=== PATIENT | male | born 1940 | race Caucasian/White ===

== ENCOUNTER → 2016-02-16 | Outpatient (CLI) | payer OTHER ==
[~2016-02-16] VITALS: Ht 162.6 cm; Wt 116.1 kg
[~2016-02-16] MED LIST: ADVIN25/60 INH; ASPI-461 PO; ASPI81TA28 PO; DILT180C96 PO; DILT240C48 PO; FLUT0.0529 NAE; FRS/40 PO; FURO-85 PO; GABA-113 PO; HYZ/10015 PO; IPRASOL4 INH; ISOS30TA3 PO; MAGN250T16 PO; METO-217 PO; NTRGSL/4 UT; OMEP20CA9 PO; POTA-331 PO; POTA10CA28 PO; POTA99TA PEG; PRLSR20 PO; RIVA1TAB4 PO; SIMV10TA2 PO; SPIR25TA PO; TERA5CAP PO
[2016-02-16 13:12] VITALS: BP 137/83; PULSE 65; Ht 162.6 cm; Wt 116.1 kg
== END | disposition home or self-care (01) ==
LOC: C.NEUR 12:14
PROVIDERS: ATTEND Internal Medicine Pulmonary Disease
DX: G47.31 Primary central sleep apnea (principal); G47.33 Obstructive sleep apnea (adult) (pediatric); J44.9 Chronic obstructive pulmonary disease, unspecified; G47.34 Idiopathic sleep related nonobstructive alveolar hypoventilation; I50.9 Heart failure, unspecified

== ENCOUNTER → 2016-03-22 | Outpatient (CLI) | payer OTHER ==
[2016-03-22 12:10] LABS: BASO % 0.3 %; BASO ABS # 0.02 K/uL (0-0.2); COMPLETE YES; EOS % 1.6 %; HEMATOCRIT 37.5 % (42-52); IG% 0.1 %; LYMPH % 16.9 %; LYMPH ABS # 1.19 K/uL (1.2-3.4); MEAN CELL VOLUME 85.4 fL (80-100); MEAN CORPUSCULAR HEMOGLOBIN 29.4 pg (25-34); MEAN CORPUSCULAR HGB CONC 34.4 g/dl (32-36); MEAN PLATELET VOLUME 11.2 fL (7.4-10.4); MONO % 11.5 %; NEUT % 69.6 %; PLATELET COUNT 191 K/uL (130-400); RED BLOOD COUNT 4.39 M/uL (4.7-6.1); WHITE BLOOD COUNT 7.05 K/uL (4.8-10.8)
[2016-03-22 12:45] LABS: BLOOD UREA NITROGEN 27 mg/dl (7-18); CARBON DIOXIDE 29 mmol/L (21-32); CHLORIDE 101 mmol/L (98-107); GLUCOSE 85 mg/dl (70-99); POTASSIUM 4.3 mmol/L (3.5-5.1); SODIUM 139 mmol/L (136-145)
== END | disposition home or self-care (01) ==
LOC: C.LAB1850 11:19
PROVIDERS: ATTEND Internal Medicine
DX: E11.9 Type 2 diabetes mellitus without complications (principal)

== ENCOUNTER → 2016-06-14 | Outpatient (CLI) | payer OTHER ==
[~2016-06-14] MED LIST changes: +AMIO200T4 PO; +CYAN100T6 PO; +DILT180C58 PO; -DILT180C96 PO; +DILT1CAP15 PO; +DOCU100C31 PO; +FLUT50SP45; +GFNSR600 PO; +LATA0.5S OPL; +METO-596 PO; +METO100T44 PO; +OXYC-57 PO; +OXYC1CAP5 PO; +PRD20 PO; +SENN8.6T7 PO; +SLWMEC PO
[2016-06-14 10:31] LABS: ALLEN TEST POS (POS); ARTERIAL BLD GAS O2 SATURATION 94.8 % (90-95); ARTERIAL BLOOD GAS BASE EXCESS 7.5 mEq/L (-9-1.8); ARTERIAL BLOOD GAS HCO3 32 mmol/L (19-24); ARTERIAL BLOOD GAS PO2 73 mm/Hg (80-95); ARTERIAL BLOOD GAS pH 7.48 (7.35-7.45); O2 ADMINISTRATION ROOM AIR
[2016-06-14 12:09] LABS: BASO % 0.2 %; BASO ABS # 0.01 K/uL (0-0.2); COMPLETE YES; EOS % 1.8 %; HEMATOCRIT 38.5 % (42-52); IG% 0.2 %; LYMPH % 14.1 %; LYMPH ABS # 0.78 K/uL (1.2-3.4); MEAN CELL VOLUME 88.5 fL (80-100); MEAN CORPUSCULAR HEMOGLOBIN 28.3 pg (25-34); MEAN CORPUSCULAR HGB CONC 31.9 g/dl (32-36); MONO % 12.6 %; NEUT % 71.1 %; PLATELET COUNT 191 K/uL (130-400); RED BLOOD COUNT 4.35 M/uL (4.7-6.1); WHITE BLOOD COUNT 5.54 K/uL (4.8-10.8)
[2016-06-14 12:55] LABS: ESTIMATED AVERAGE GLUCOSE 131 mg/dl; HA1C FLAG Normal (Normal)
[2016-06-14 13:08] LABS: URINE APPEARANCE CLEAR (CLEAR); URINE BILIRUBIN NEG (NEG); URINE COLOR YELLOW; URINE NITRITE NEG (NEG); URINE PH 8.5 (4.5-7.5); UROBILINOGEN NEG (NEG)
[2016-06-14 13:18] LABS: MANUAL MICROSCOPIC REQUIRED? NO; REVIEW REQ? NO; SULFASALICYLIC ACID NEG (NEG)
[2016-06-14 13:53] LABS: AST/SGOT 16 U/L (15-37); BLOOD UREA NITROGEN 27 mg/dl (7-18); BUN/CREATININE RATIO 22.6 (10-20); CALCIUM 9.2 mg/dl (8.5-10.1); CARBON DIOXIDE 32 mmol/L (21-32); CHLORIDE 100 mmol/L (98-107); GLUCOSE 84 mg/dl (70-99); SODIUM 139 mmol/L (136-145)
[2016-06-14 13:57] LABS: ALT/SGPT 31 U/L (12-78); CHOLESTEROL 106 mg/dl (0-200); CHOLESTEROL/HDL RATIO 2.5; HDL CHOLESTEROL 42 mg/dl; LDL CHOLESTEROL CALCULATED 36 mg/dl; TRIGLYCERIDES 142 mg/dl (0-150); VERY LOW DENSITY LIPOPROT CALC 28 mg/dl
--- NOTE | 2016-06-21 09:41 | CODING QUERY MEDICAL NECESSITY ---
CQSUPPORTING DIAGNOSIS NEEDED A supporting diagnosis is required for the test/procedure performed on this patient in order for us to be reimbursed by the patient's insurance. Please provide a supporting diagnosis for the following test/procedure listed below next to the test name along with your signature. *If there is no additional diagnosis for this patient that would support the following test/procedure please document that below next to the test/procedure. Test(s)/Procedure(s) that require a supporting diagnosis: LUKASZ 06/14/16 GLYCATED HEMOGLOBIN TEST Provider Signature: Date: Thank you Ariana Blanco Health Information Management Once completed, please kindly fax back to [phone] For questions please call [phone]
== END | disposition home or self-care (01) ==
LOC: C.LAB 09:23
PROVIDERS: ATTEND Internal Medicine
DX: E78.5 Hyperlipidemia, unspecified (principal); E11.9 Type 2 diabetes mellitus without complications

== ENCOUNTER → 2016-08-19 | Outpatient (CLI) | payer OTHER ==
[~2016-08-19] VITALS: Ht 167.6 cm; Wt 116.6 kg
[~2016-08-19] MED LIST changes: -AMIO200T4 PO; -ASPI81TA28 PO; -CYAN100T6 PO; -DILT180C58 PO; +DILT180C96 PO; -DILT1CAP15 PO; -DILT240C48 PO; -DOCU100C31 PO; -FLUT50SP45; -FRS/40 PO; -GFNSR600 PO; -IPRASOL4 INH; -ISOS30TA3 PO; -LATA0.5S OPL; -METO-217 PO; -METO-596 PO; -METO100T44 PO; -OXYC-57 PO; -OXYC1CAP5 PO; -POTA10CA28 PO; -POTA99TA PEG; -PRD20 PO; -PRLSR20 PO; -SENN8.6T7 PO; -SLWMEC PO
[2016-08-19 13:11] VITALS: BP 109/61; PULSE 58; Ht 167.6 cm; Wt 116.6 kg
== END | disposition home or self-care (01) ==
LOC: C.NEUR 12:24
PROVIDERS: ATTEND Internal Medicine Pulmonary Disease
DX: G47.31 Primary central sleep apnea (principal); G47.33 Obstructive sleep apnea (adult) (pediatric); J44.9 Chronic obstructive pulmonary disease, unspecified

== ENCOUNTER → 2016-10-07 | Outpatient (CLI) | payer OTHER ==
[~2016-10-07] MED LIST changes: +ASPI81TA28 PO; +DILT240C48 PO; +FRS/40 PO; +IPRASOL4 INH; +ISOS30TA3 PO; +METO-217 PO; +POTA10CA28 PO; +POTA99TA PEG; +PRLSR20 PO
[2016-10-07 09:41] LABS: BASO % 0.2 %; BASO ABS # 0.01 K/uL (0-0.2); COMPLETE YES; EOS % 1.8 %; HEMATOCRIT 39.7 % (42-52); IG% 0.2 %; LYMPH % 17.2 %; LYMPH ABS # 0.88 K/uL (1.2-3.4); MEAN CELL VOLUME 88.2 fL (80-100); MEAN CORPUSCULAR HEMOGLOBIN 28.9 pg (25-34); MEAN CORPUSCULAR HGB CONC 32.7 g/dl (32-36); MEAN PLATELET VOLUME 11.3 fL (7.4-10.4); MONO % 10.5 %; NEUT % 70.1 %; PLATELET COUNT 171 K/uL (130-400); WHITE BLOOD COUNT 5.12 K/uL (4.8-10.8)
[2016-10-07 10:10] LABS: CHOLESTEROL/HDL RATIO 2.5
[2016-10-07 10:14] LABS: ALT/SGPT 28 U/L (12-78); AST/SGOT 13 U/L (15-37); BLOOD UREA NITROGEN 30 mg/dl (7-18); BUN/CREATININE RATIO 21.6 (10-20); CALCIUM 9.4 mg/dl (8.5-10.1); CARBON DIOXIDE 33 mmol/L (21-32); CHLORIDE 101 mmol/L (98-107); GLUCOSE 101 mg/dl (70-99); SODIUM 138 mmol/L (136-145)
[2016-10-07 10:16] LABS: ESTIMATED AVERAGE GLUCOSE 131 mg/dl; HA1C FLAG Normal (Normal)
== END | disposition home or self-care (01) ==
LOC: C.LAB1850 08:15
PROVIDERS: ATTEND Internal Medicine
DX: E11.9 Type 2 diabetes mellitus without complications (principal)

== ENCOUNTER 2016-11-04 15:09 | Emergency (ER) | payer OTHER ==
[~2016-11-04] VITALS: Ht 167.6 cm; Wt 120.8 kg
[~2016-11-04 15:09] MED LIST changes: -ASPI81TA28 PO; -DILT240C48 PO; -FRS/40 PO; -IPRASOL4 INH; -ISOS30TA3 PO; -METO-217 PO; -POTA10CA28 PO; -POTA99TA PEG; -PRLSR20 PO
[2016-11-04 15:22] VITALS: TEMP 36.9; Ht 167.6 cm; Wt 120.8 kg
--- NOTE | 2016-11-04 15:51 | DIAGNOSTIC IMAGING REPORT ---
PELVIS 1 OR 2 VIEW ROUTINE CLINICAL HISTORY: 76 years-old Male presenting with right hip pain, fall. TECHNIQUE: Single frontal view of the pelvis was obtained. COMPARISON: None. FINDINGS: Pubic symphysis and sacroiliac joints congruent. Left hip joint congruent. Traumatic right protrusio acetabuli deformity with disruption of the right ilioischial line. Osseous abnormality along the superior acetabulum, possibly also posttraumatic. No gross evidence of a right femoral neck fracture. IMPRESSION: Right acetabular fracture with traumatic right protrusio acetabuli deformity. Further evaluation with CT is recommended to fully assess the injury pattern. The report will be called/faxed according to standard departmental protocol. Electronically signed by: Jesse Wagner M.D. 11/04/2016 3:50 PM Dictated Date/Time: 11/04/2016 3:45 PM
--- NOTE | 2016-11-04 15:53 | EMERGENCY ROOM VISIT NOTE ---
History First contact with patient: 15:24 Chief Complaint: HIP PAIN Stated Complaint: FALL, HIP PAIN History of Present Illness The patient is a 76 year old male who presents to the Emergency Room via BLS for violation of right hip pain. The patient was at work and stepped over a curb when he tripped and fell onto the right hip. He denies hitting his head. He denies any other injuries. The patient reports that his pain as a 10/10 with movement. He denies any significant pain at rest. He denies any previous injuries to this hip. The patient reports the falls mechanical in nature and was not associated with any chest pain, shortness of breath, lightheadedness or dizziness. Review of Systems A complete 10 point review of systems was reviewed with the patient with pertinent positives and negatives as per history of present illness. All else were negative. Past Medical/Surgical History Medical Problems: (1) Afib (2) Coronary artery disease (3) Hyperlipidemia (4) Hypertension (5) TX (myocardial infarction) (6) Neuropathy (7) SANDOR (obstructive sleep apnea) Surgical Problems: (1) History of cataract surgery (2) History of coronary artery stent placement (3) History of dental implant Family History Cancer FHx: CAD (brothers) Hypertension Kidney disease Social History Smoking Status: Former Smoker Alcohol Use: occasionally Marital Status: Occupation Status: employed Current/Historical Medications Scheduled Aspirin (Aspirin Ec), 81 MG PO DAILY Diltiazem Hcl Coated Beads (Cartia Xt), 1 CAP PO DAILY Fluticasone Prop/Salmeterol (Advair Diskus 250/50 60 Dose), 1 PUFF INH BID Furosemide (Lasix), 2 TAB PO QAM Furosemide (Lasix), 1 TAB PO LUNCH Hctz/Losartan (Hyzaar 25MG/100MG), 1 TAB PO DAILY Ipratropium-Albuterol (Duoneb), 1 TREATMENT INH Q6H Isosorbide Mononitrate Ext Rel (Imdur Ext Rel), 30 MG PO QAM Metoprolol Succinate (Toprol Xl), 0.5 TAB PO BID Omeprazole (Prilosec), 20 MG PO BID Potassium (Potassium), 1 TAB PEG DAILY Potassium Chloride (Micro-K Ext Rel), 2 TAB PO TID Rivaroxaban (Xarelto), 1 TAB PO HS Simvastatin (Zocor), 10 MG PO QPM Spironolactone (Aldactone), 25 MG PO DAILY Terazosin (Hytrin), 5 MG PO HS Physical Exam Vital Signs Date Time Temp Pulse Resp B/P (MAP) Pulse Ox O2 Delivery O2 Flow Rate FiO2 11/04/16 21:51 100 14 118/72 98 11/04/16 21:32 100 14 118/72 98 Nasal Cannula 2.0 11/04/16 21:01 117 19 124/78 98 Nasal Cannula 2.0 11/04/16 20:32 118 21 121/80 96 Nasal Cannula 2.0 11/04/16 20:01 120 17 114/80 98 Nasal Cannula 2.0 11/04/16 19:32 110 18 122/68 97 Nasal Cannula 2.0 11/04/16 18:51 116 20 118/72 98 Room Air 11/04/16 16:46 104 25 135/85 Nasal Cannula 2.0 11/04/16 16:40 111 11/04/16 15:22 36.9 95 22 138/75 95 Room Air Physical Exam VITALS: Vitals are noted on the nurse's note and reviewed by myself. Vital signs stable. GENERAL: This is a 68-year-old male, in no acute distress, nondiaphoretic, well- developed well-nourished. SKIN: There is a small superficial abrasion to the right knee. HEENT: Normocephalic. PERRLA. EOMI. Mucous membranes moist. Neck is supple without nuchal rigidity. HEART: Regular rate and rhythm without murmurs gallops or rubs. LUNGS: Clear to auscultation bilaterally without wheezes, rales or rhonchi. MUSCULOSKELETAL: The right leg is shortened and externally rotated. There is tenderness to palpation of the right hip. Decreased range of motion. EXTREMITIES: 1+ pitting edema to bilateral lower extremities. NEURO: Patient was alert and oriented to person place and time. Normal sensation to light and sharp touch. Medical Decision & Procedures ER Provider Diagnostic Interpretation: PELVIS 1 OR 2 VIEW ROUTINE FINDINGS: Pubic symphysis and sacroiliac joints congruent. Left hip joint congruent. Traumatic right protrusio acetabuli deformity with disruption of the right ilioischial line. Osseous abnormality along the superior acetabulum, possibly also posttraumatic. No gross evidence of a right femoral neck fracture. IMPRESSION: Right acetabular fracture with traumatic right protrusio acetabuli deformity. Further evaluation with CT is recommended to fully assess the injury pattern. RIGHT FEMUR 4 VIEWS FINDINGS: There is a displaced fracture within the medial wall of the right acetabulum which demonstrates up to 1.4 cm of medial displacement. This results in a right-sided protrusion acetabula deformity. The right femur appears intact. Vascular calcifications are noted. No knee effusion. No radiopaque foreign bodies. IMPRESSION: Displaced fracture within the medial wall of the right acetabulum with an associated traumatic right protrusio acetabuli deformity. CHEST 1 VW FRONT-NOT PORTABLE IMPRESSION: No acute cardiopulmonary process. ANGIO PELVIS WITH CONTRAST FINDINGS: CTA: There is moderate atherosclerosis and mild tortuosity of the distal abdominal aorta. Moderate mixed plaquing is also seen within the bilateral iliac and renal vasculature. No aneurysm, high-grade stenosis, dissection or proximal branch occlusion identified. Specifically, the branches of the right internal iliac artery appear patent proximally without a large pseudoaneurysm or active extravasation about the right hip identified. CT PELVIS: Colonic diverticulosis without diverticulitis. Curtis catheter is noted with a partially collapsed urinary bladder lumen. Prostatomegaly. There is moderate soft tissue swelling about the right hip with small to moderate joint effusion. The bones are moderately demineralized. Degenerative changes are seen within the lower lumbar spine. Comminuted acetabular fracture is noted with fracture lines extending into the anterior wall, posterior wall and posterior column. These findings are nicely seen on the sagittal images. There is medial displacement of fracture fragments by approximately 8 mm with posttraumatic acetabular protrusio. Fracture fragments extend laterally 10 mm. Acute nondisplaced fracture from the posterior column fracture extends into the right ischium and junction of the inferior right pubic ramus. The right femur appears intact. Sacrum and left hemipelvis appears intact. IMPRESSION: 1. Comminuted acetabular fracture on the right as above involve the anterior wall, posterior wall and posterior column. Mildly displaced fracture fragments with posttraumatic acetabular protrusio noted as above. Fracture lines extend into the right ischium and also into the junction of the ischium and inferior right pubic ramus. 2. No evidence of associated vascular injury, specifically branches of the right internal iliac artery appear patent. No active extravasation or posttraumatic pseudoaneurysm. 3. Incidental findings as above include colonic diverticulosis without diverticulitis. Laboratory Results 11/04/16 16:04 Red Blood Count 4.39, Mean Corpuscular Volume 85.6, Mean Corpuscular Hemoglobin 27.8, Mean Corpuscular Hemoglobin Concent 32.4, Mean Platelet Volume 10.9, Neutrophils (%) (Auto) 76.3, Lymphocytes (%) (Auto) 16.8, Monocytes (%) (Auto) 4.5, Eosinophils (%) (Auto) 1.9, Basophils (%) (Auto) 0.2, Neutrophils # (Auto) 4.89, Lymphocytes # (Auto) 1.08, Monocytes # (Auto) 0.29, Eosinophils # (Auto) 0.12, Basophils # (Auto) 0.01 11/04/16 16:04 Test 11/04/16 16:04 11/04/16 16:35 White Blood Count 6.41 K/uL (4.8-10.8) Red Blood Count 4.39 M/uL (4.7-6.1) Hemoglobin 12.2 g/dL (14.0-18.0) Hematocrit 37.6 % (42-52) Mean Corpuscular Volume 85.6 fL (80-100) Mean Corpuscular Hemoglobin 27.8 pg (25-34) Mean Corpuscular Hemoglobin Concent 32.4 g/dl (32-36) Platelet Count 168 K/uL (130-400) Mean Platelet Volume 10.9 fL (7.4-10.4) Neutrophils (%) (Auto) 76.3 % Lymphocytes (%) (Auto) 16.8 % Monocytes (%) (Auto) 4.5 % Eosinophils (%) (Auto) 1.9 % Basophils (%) (Auto) 0.2 % Neutrophils # (Auto) 4.89 K/uL (1.4-6.5) Lymphocytes # (Auto) 1.08 K/uL (1.2-3.4) Monocytes # (Auto) 0.29 K/uL (0.11-0.59) Eosinophils # (Auto) 0.12 K/uL (0-0.5) Basophils # (Auto) 0.01 K/uL (0-0.2) RDW Standard Deviation 41.3 fL (36.4-46.3) RDW Coefficient of Variation 13.1 % (11.5-14.5) Immature Granulocyte % (Auto) 0.3 % Immature Granulocyte # (Auto) 0.02 K/uL (0.00-0.02) Prothrombin Time 12.3 SECONDS (9.0-12.0) Prothromb Time International Ratio 1.1 (0.9-1.1) Activated Partial Thromboplast Time 30.6 SECONDS (21.0-31.0) Partial Thromboplastin Ratio 1.2 Anion Gap 8.0 mmol/L (3-11) Est Creatinine Clear Calc Drug Dose 46.6 ml/min Estimated GFR () 47.1 Estimated GFR (Non- 40.7 BUN/Creatinine Ratio 19.3 (10-20) Calcium Level 9.0 mg/dl (8.5-10.1) Urine Color YELLOW Urine Appearance CLEAR (CLEAR) Urine pH 7.0 (4.5-7.5) Urine Specific [place] 1.014 (1.000-1.030) Urine Protein NEG (NEG) Urine Glucose (UA) NEG (NEG) Urine Ketones NEG (NEG) Urine Occult Blood NEG (NEG) Urine Nitrite NEG (NEG) Urine Bilirubin NEG (NEG) Urine Urobilinogen NEG (NEG) Urine Leukocyte Esterase NEG (NEG) Medications Administered Medications (Trade) Dose Ordered Sig/Janee Route Start Time Stop Time Status Last Admin Dose Admin Fentanyl Citrate (Fentanyl Inj) 50 mcg NOW STAT IV 11/04/16 16:24 11/04/16 16:25 DC 11/04/16 16:45 50 MCG Sodium Chloride 500 ml @ 999 mls/hr Q31M STAT IV 11/04/16 16:31 11/04/16 17:01 DC 11/04/16 16:45 999 MLS/HR Morphine Sulfate (MoRPHine SULFATE INJ) 4 mg NOW STAT IV 11/04/16 18:32 11/04/16 18:34 DC 11/04/16 18:46 4 MG Diphtheria/ Pertussis/Tetanus Vacc (Adacel Inj) 0.5 ml ONCE ONCE IM. 11/04/16 18:45 11/04/16 18:46 DC 11/04/16 18:48 0.5 ML Metoprolol Tartrate (Lopressor Tab) 25 mg NOW STAT PO 11/04/16 19:54 11/04/16 19:55 DC 11/04/16 21:17 25 MG Metoprolol Tartrate (Lopressor Tab) 50 mg NOW STAT PO 11/04/16 20:37 11/04/16 20:38 DC 11/04/16 21:17 50 MG ECG Rate (beats per minute): 112 Rhythm: atrial fibrillation Findings: no acute ischemic change Comparison ECG Date: normal sinus rhythm replaced with atrial fibrillation ED Course The patient was evaluated as above. Labs were drawn and IV access was obtained. Patient was medicated with a 500 mL normal saline bolus and 50 g fentanyl. X-rays of the right femur and pelvis were performed and read by radiology as above. I discussed the findings with the radiologist, who recommended a CT angiogram of the pelvis. CTA of the pelvis was performed and showed a right acetabular fracture as noted above with no vascular compromise. Findings were discussed with Dr. Soto, the orthopedist telephone operators supervisor. He recommended transfer to a tertiary facility. Case was discussed with Dr. Mas, ED physician at [facility]. He accepted the patient in transfer. Patient was given 4 mg morphine for pain with good relief. Findings were discussed and he is agreeable to this. Patient was given his nighttime dose of 75 mg metoprolol. Patient was transferred via ALS to [facility]. Medical Decision Differential diagnosis includes femur fracture, acetabular fracture, hip dislocation, vascular injury, among others. The patient is a 76-year-old male who presents today complaining of right hip pain after a fall. X-rays showed evidence of an acetabular fracture. CTA was performed for further evaluation of this injury and showed a comminuted acetabular fracture without evidence of vascular injury. Neuro status is intact. Patient was stable throughout his stay. He was found to be in atrial fibrillation, however he has a history of this. Labs are unremarkable. Pain was controlled with fentanyl and morphine IV in the emergency department. Case was discussed with orthopedics, who felt that the patient would benefit from transfer to a tertiary facility for acetabular reconstruction. Case was discussed with the [facility] ER, who excepted the patient in transfer. Patient was transferred via ALS for further evaluation and treatment of his right acetabular fracture. The patient was independently evaluated by Dr. Briseno, ED attending physician, who agreed with my assessment and treatment plan. Medication Reconcilliation Current Medication List: was personally reviewed by me Blood Pressure Screening Patient's blood pressure: Elevated blood pressure Blood pressure disposition: Elevated BP felt to be situational Impression Primary Impression: Right acetabular fracture Departure Information Referrals Ken Worthington M.D. (PCP) Patient Instructions My [facility]
--- NOTE | 2016-11-04 16:17 | DIAGNOSTIC IMAGING REPORT ---
RIGHT FEMUR 4 VIEWS HISTORY: right hip pain, fall COMPARISON: Pelvis 11/04/2016. FINDINGS: There is a displaced fracture within the medial wall of the right acetabulum which demonstrates up to 1.4 cm of medial displacement. This results in a right-sided protrusion acetabula deformity. The right femur appears intact. Vascular calcifications are noted. No knee effusion. No radiopaque foreign bodies. IMPRESSION: Displaced fracture within the medial wall of the right acetabulum with an associated traumatic right protrusio acetabuli deformity. Electronically signed by: Chepe Vaughn M.D. 11/04/2016 4:15 PM Dictated Date/Time: 11/04/2016 4:13 PM
--- NOTE | 2016-11-04 16:19 | DIAGNOSTIC IMAGING REPORT ---
CHEST 1 VW FRONT-NOT PORTABLE HISTORY: 76 years-old Male HIP FX preoperative study in a patient with right hip pain status post fall. COMPARISON: Chest radiograph 05/26/2015 TECHNIQUE: Portable AP view of the chest FINDINGS: Cardiac silhouette is mildly enlarged. Prior median sternotomy. There is no pneumothorax, pleural effusion or focal airspace consolidation. Opacity silhouetting the inferior left heart border is noted suggesting prominent epicardial fat pad. There is chronic blunting of the costophrenic angles compatible some pleural parenchymal scarring. Bones are grossly intact. IMPRESSION: No acute cardiopulmonary process. The above report was generated using voice recognition software. It may contain grammatical, syntax or spelling errors. Electronically signed by: Gio Allen M.D. 11/04/2016 4:18 PM Dictated Date/Time: 11/04/2016 4:16 PM
[2016-11-04] MEDS ORDERED: FENTANYL CITRATE INJ 50 MCG/1 ML 2 ML VIAL IV STA (16:24)
[2016-11-04] MEDS ORDERED: SODIUM CHLORIDE 0.9% 500ML 500 ML IV STA (16:31)
[2016-11-04 16:36] LABS: BASO % 0.2 %; BASO ABS # 0.01 K/uL (0-0.2); COMPLETE YES; EOS % 1.9 %; HEMATOCRIT 37.6 % (42-52); IG% 0.3 %; LYMPH % 16.8 %; LYMPH ABS # 1.08 K/uL (1.2-3.4); MEAN CELL VOLUME 85.6 fL (80-100); MEAN CORPUSCULAR HEMOGLOBIN 27.8 pg (25-34); MEAN CORPUSCULAR HGB CONC 32.4 g/dl (32-36); MEAN PLATELET VOLUME 10.9 fL (7.4-10.4); MONO % 4.5 %; NEUT % 76.3 %; PLATELET COUNT 168 K/uL (130-400); RED BLOOD COUNT 4.39 M/uL (4.7-6.1); WHITE BLOOD COUNT 6.41 K/uL (4.8-10.8)
[2016-11-04] MEDS ORDERED: OPTIRAY 320 IV PRN (16:45)
[2016-11-04] MEDS ORDERED: DILT240C48 PO (16:47)
[2016-11-04] MEDS ORDERED: PRLSR20 PO (16:47)
[2016-11-04] MEDS ORDERED: HYZ/10015 PO (16:47)
[2016-11-04] MEDS ORDERED: ISOS30TA3 PO (16:47)
[2016-11-04] MEDS ORDERED: POTA99TA PEG (16:47)
[2016-11-04] MEDS ORDERED: IPRASOL4 INH (16:47)
[2016-11-04] MEDS ORDERED: SIMV10TA2 PO (16:47)
[2016-11-04] MEDS ORDERED: FRS/40 PO ×2 (16:47)
[2016-11-04] MEDS ORDERED: POTA10CA28 PO (16:47)
[2016-11-04] MEDS ORDERED: ADVIN25/60 INH (16:47)
[2016-11-04] MEDS ORDERED: RIVA1TAB4 PO (16:47)
[2016-11-04] MEDS ORDERED: SPIR25TA PO (16:47)
[2016-11-04] MEDS ORDERED: ASPI81TA28 PO (16:47)
[2016-11-04] MEDS ORDERED: TERA5CAP PO (16:47)
[2016-11-04] MEDS ORDERED: METO-217 PO (16:47)
[2016-11-04 16:50] LABS: INR 1.1 (0.9-1.1); PARTIAL THROMBOPLASTIN RATIO 1.2; PROTHROMBIN TIME (PATIENT) 12.3 SECONDS (9.0-12.0)
[2016-11-04 16:59] LABS: URINE APPEARANCE CLEAR (CLEAR); URINE BILIRUBIN NEG (NEG); URINE COLOR YELLOW; URINE NITRITE NEG (NEG); URINE SPECIFIC GRAVITY 1.014 (1.000-1.030); UROBILINOGEN NEG (NEG); ZZURINE CULT IF INDIC CATH NO
[2016-11-04 17:00] LABS: MANUAL MICROSCOPIC REQUIRED? NO; REVIEW REQ? NO
[2016-11-04 17:04] LABS: BUN/CREATININE RATIO 19.3 (10-20); CREATININE 1.6 mg/dl (0.60-1.40); POTASSIUM 4.6 mmol/L (3.5-5.1)
--- NOTE | 2016-11-04 18:16 | DIAGNOSTIC IMAGING REPORT ---
ANGIO PELVIS WITH CONTRAST HISTORY: 76 years-old Male acute right acetabular hip fracture with concern for associated possible vascular injury. COMPARISON: Right femur and pelvis radiographs of same day TECHNIQUE: CT angiography of the pelvis was obtained following the intravenous administration of 120 mL Optiray 320. Coronal and sagittal MIPS were obtained from the axial data set and submitted for review. A dose lowering technique was used consistent with the principals of SONY. FINDINGS: CTA: There is moderate atherosclerosis and mild tortuosity of the distal abdominal aorta. Moderate mixed plaquing is also seen within the bilateral iliac and renal vasculature. No aneurysm, high-grade stenosis, dissection or proximal branch occlusion identified. Specifically, the branches of the right internal iliac artery appear patent proximally without a large pseudoaneurysm or active extravasation about the right hip identified. CT PELVIS: Colonic diverticulosis without diverticulitis. Curits catheter is noted with a partially collapsed urinary bladder lumen. Prostatomegaly. There is moderate soft tissue swelling about the right hip with small to moderate joint effusion. The bones are moderately demineralized. Degenerative changes are seen within the lower lumbar spine. Comminuted acetabular fracture is noted with fracture lines extending into the anterior wall, posterior wall and posterior column. These findings are nicely seen on the sagittal images. There is medial displacement of fracture fragments by approximately 8 mm with posttraumatic acetabular protrusio. Fracture fragments extend laterally 10 mm. Acute nondisplaced fracture from the posterior column fracture extends into the right ischium and junction of the inferior right pubic ramus. The right femur appears intact. Sacrum and left hemipelvis appears intact. IMPRESSION: 1. Comminuted acetabular fracture on the right as above involve the anterior wall, posterior wall and posterior column. Mildly displaced fracture fragments with posttraumatic acetabular protrusio noted as above. Fracture lines extend into the right ischium and also into the junction of the ischium and inferior right pubic ramus. 2. No evidence of associated vascular injury, specifically branches of the right internal iliac artery appear patent. No active extravasation or posttraumatic pseudoaneurysm. 3. Incidental findings as above include colonic diverticulosis without diverticulitis. The above report was generated using voice recognition software. It may contain grammatical, syntax or spelling errors. Electronically signed by: Gio Allen M.D. 11/04/2016 6:15 PM Dictated Date/Time: 11/04/2016 6:00 PM
[2016-11-04] MEDS ORDERED: MoRPHine SULFATE 4 MG/ML 1 ML CARP\\VIAL IV STA (18:32)
[2016-11-04] MEDS ORDERED: DIPHTHERIA/TETANUS/PERTUSSIS 0.5 ML SYR/VIAL IM. ONE (18:45)
[2016-11-04] MEDS ORDERED: METOPROLOL TARTRATE 25 MG TAB PO STA (19:54)
[2016-11-04] MEDS ORDERED: METOPROLOL TARTRATE 50 MG TAB PO STA (20:37)
[2016-11-04 21:51] VITALS: BP 118/72; PULSE 100; O2SAT 98
== END 2016-11-04 21:52 | disposition short-term general hospital (02) ==
LOC: EDBD 15:09 → C.EDB 15:13
DX: S32.401A Unspecified fracture of right acetabulum, initial encounter for closed fracture (principal); W10.1XXA Fall (on)(from) sidewalk curb, initial encounter; I48.91 Unspecified atrial fibrillation; E78.5 Hyperlipidemia, unspecified; I10 Essential (primary) hypertension; I25.2 Old myocardial infarction; G47.33 Obstructive sleep apnea (adult) (pediatric); Z82.49 Family history of ischemic heart disease and other diseases of the circulatory system; Z87.891 Personal history of nicotine dependence; Z79.82 Long term (current) use of aspirin

== ENCOUNTER 2016-12-06 11:15 | Inpatient (IN) | payer OTHER ==
[2016-12-06] VITALS (15 sets, daily range): BP systolic 94–117; BP diastolic 56–73; PULSE 84–120; TEMP 36.8–37.7; O2SAT 98–100; Ht 177.8 cm; Wt 106.0 kg
[~2016-12-06] VITALS: Ht 177.8 cm; Wt 106.0 kg
[~2016-12-06 11:15] MED LIST changes: -ASPI-461 PO; +ASPI81TA28 PO; -DILT180C96 PO; +DILT240C48 PO; -FLUT0.0529 NAE; +FRS/40 PO; -FURO-85 PO; -GABA-113 PO; +IPRASOL4 INH; +ISOS30TA3 PO; -MAGN250T16 PO; +METO-217 PO; -NTRGSL/4 UT; -OMEP20CA9 PO; -POTA-331 PO; +POTA10CA28 PO; +POTA99TA PEG; +PRLSR20 PO
[2016-12-06] MEDS ORDERED: RAPID SEQUENCE INDUCTION BAG ONE (11:21)
[2016-12-06] MEDS ORDERED: PROPOFOL IV EMULSION 10 MG/ML 100 ML VIAL IV ONE (11:33)
[2016-12-06] MEDS ORDERED: VANCOMYCIN INJ 2,250 MG in SODIUM CHLORIDE 0.9% 500ML 500 ML IV SCH ×2 (11:45→13:30)
[2016-12-06] MEDS ORDERED: VANCOMYCIN INJ 2,250 MG in SODIUM CHLORIDE 0.9% 500ML 500 ML IV ONE (11:45)
[2016-12-06] MEDS ORDERED: SODIUM CHLORIDE 0.9% 1000ML 1,000 ML IV STA (11:45)
[2016-12-06] MEDS ORDERED: PIPERACILLIN/TAZOBACTAM 4.5 GM/100ML D5W IV STA (11:45)
[2016-12-06] MEDS ORDERED: FENTANYL CITRATE INJ 50 MCG/1 ML 2 ML VIAL IV STA (11:54)
[2016-12-06 11:56] LABS: ISTAT CREATININE 1.4 mg/dl (0.6-1.3); ISTAT HEMOGLOBIN 10.9 g/dl (14.0-18.0); ISTAT IONIZED CALCIUM 1.13 mmol/l (1.12-1.32)
--- NOTE | 2016-12-06 11:56 | EMERGENCY ROOM VISIT NOTE ---
History Report prepared by Ana: Glo Rehman Under the Supervision of: Dr. Marline Fleming M.D. First contact with patient: 11:17 Chief Complaint: RESPIRATORY DISTRESS Stated Complaint: ALOC/AMS History of Present Illness The patient is a 76 year old male who presents to the Emergency Room with complaints of persistent respiratory distress that began prior to arrival. Per nursing staff, the patient was previously being treated at [facility] for a right hip and pelvis fracture. The patient's states that the patient had to have his hip and pelvis repaired through his abdomen. She states that the patient has been at [facility] for further rehabilitation. The patient's states that while at [facility], the patient has been short of breath intermittently and has been on supplemental oxygen intermittently while there. She states that the patient then developed a cough. The patient's states that the patient was found to have a "small pneumonia." She states that the patient was placed on antibiotics and nasal cannula oxygen. The patient's states that the patient was determined to go home today. Per nursing staff, the patient signed out against medical advice from [facility] this morning. The patient's states that the patient got in the car today and he lost consciousness. She denies the patient having a fever, but states that the patient states he has been feeling hot. Per nursing staff, the patient had an oxygen saturation of 88% on a non-rebreather. The history is limited secondary to the patient's respiratory distress. Source of History: spouse/significant other (), nursing staff History Limited By: other (respiratory distress) Onset: prior to arrival Position: other (global) Quality: other (respiratory distress) Timing: other (persistent) Associated Symptoms: + cough, + SOB Review of Systems The HPI and ROS are limited secondary to the patient's respiratory distress. Past Medical & Surgical Medical Problems: (1) Afib (2) Coronary artery disease (3) Hyperlipidemia (4) Hypertension (5) ND (myocardial infarction) (6) Neuropathy (7) SANDOR (obstructive sleep apnea) Surgical Problems: (1) History of cataract surgery (2) History of coronary artery stent placement (3) History of dental implant Family History Cancer FHx: CAD (brothers) Hypertension Kidney disease Social History Smoking Status: Former Smoker Alcohol Use: occasionally Marital Status: Occupation Status: employed Current/Historical Medications Scheduled Amiodarone Hcl (Cordarone), 1 TAB PO DAILY Aspirin (Aspirin Ec), 81 MG PO DAILY Cyanocobalamin (Vitamin B12 100 Mcg), 100 MCG PO DAILY Diltiazem Hcl Coated Beads (Diltiazem Hcl Er), 360 MG PO DAILY Fluticasone Prop/Salmeterol (Advair Diskus 250/50 60 Dose), 1 PUFF INH BID Fluticasone Propionate (Nasal) (Allergy Nasal [place] 24 Ho), 2 SPRAY NA DAILY Furosemide (Lasix), 2 TAB PO QAM Furosemide (Lasix), 1 TAB PO QDD Ipratropium-Albuterol (Duoneb), 1 TREATMENT INH Q4H Latanoprost (Xalatan 0.005% Oph Fannie), 1 DROPS OPL HS Metoprolol Tartrate (Lopressor), 100 MG PO BID Omeprazole (Prilosec), 20 MG PO BID Potassium Chloride (Micro-K Ext Rel), 1 TAB PO BID Rivaroxaban (Xarelto), 1 TAB PO HS Simvastatin (Zocor), 10 MG PO QPM Scheduled PRN Oxycodone Hcl (Oxycodone Hcl), 1 CAP PO Q12 PRN for Pain Sennosides-Docusate Sodium (Senokot S), 1 TAB PO QDL PRN for Consult Allergies Coded Allergies: No Known Allergies (Verified , 12/06/16) Physical Exam Vital Signs Date Time Temp Pulse Resp B/P (MAP) Pulse Ox O2 Delivery O2 Flow Rate FiO2 12/06/16 14:15 92 22 108/63 100 Mechanical Ventilator 12/06/16 14:10 82 22 100/61 99 Mechanical Ventilator 12/06/16 14:06 81 22 97/64 98 Mechanical Ventilator 12/06/16 14:01 96 22 85/48 99 Mechanical Ventilator 15.0 60 12/06/16 13:57 86 22 97/63 98 Mechanical Ventilator 15.0 60 12/06/16 13:52 90 22 93/55 100 Mechanical Ventilator 15.0 60 12/06/16 13:43 80 22 108/70 100 Mechanical Ventilator 15.0 60 12/06/16 13:30 93 22 101/66 99 Mechanical Ventilator 15.0 60 12/06/16 13:22 101 22 114/61 96 Mechanical Ventilator 15.0 60 12/06/16 13:06 96 22 103/60 94 Mechanical Ventilator 15.0 60 12/06/16 13:05 110 12/06/16 12:51 102 22 118/70 99 Mechanical Ventilator 15.0 60 12/06/16 12:23 107 21 125/97 92 Mechanical Ventilator 15.0 60 12/06/16 12:15 92 22 86/56 97 Mechanical Ventilator 15.0 60 12/06/16 12:10 101 17 86/54 98 Mechanical Ventilator 15.0 60 12/06/16 12:10 60 12/06/16 12:07 99 10 81/51 98 Mechanical Ventilator 15.0 60 12/06/16 12:02 108 22 92/56 99 Mechanical Ventilator 15.0 60 12/06/16 12:00 108 22 105/69 98 Mechanical Ventilator 15.0 60 12/06/16 11:53 110 16 115/68 96 Mechanical Ventilator 15.0 100 12/06/16 11:49 112 20 126/88 100 Mechanical Ventilator 15.0 100 12/06/16 11:36 120 22 146/88 99 Ambu-Bag 15.0 12/06/16 11:31 120 22 87 Ambu-Bag 15.0 12/06/16 11:25 37.2 108 38 152/74 92 Nebulizer 6.0 12/06/16 11:22 115 12/06/16 11:15 85 Physical Exam Vital signs reviewed. General: Critically ill appearing male, in no significant distress. On Non- rebreather. HEENT: No scleral icterus, PERRLA, neck supple. Atraumatic. Cardiovascular: Rapid and irregular heart rate and rhythm, no extra sounds. Pulmonary: Coarse breath sounds bilaterally, diminished on the left. Abdomen: Obese abdomen with lower abdominal incision that appears to be well healing. Musculoskeletal: Atraumatic, 1-2 plus pitting edema to the bilateral lower extremities. Neurologic: Somnolent, nonverbal, minimally arousable. Skin: Warm, dry, no rash Medical Decision & Procedures ER Provider Diagnostic Interpretation: Radiology results as stated below per my review and radiologist interpretation: CHEST ONE VIEW PORTABLE CLINICAL HISTORY: intubation, reps failure COMPARISON STUDY: 11/04/2016 FINDINGS: Endotracheal tube 2 cm above the bisi. Moderate cardiomegaly. Patchy bilateral parenchymal infiltrates versus atypical congestive failure. IMPRESSION: 1. Endotracheal tube 2 cm with a chronic. 2. Bilateral patchy parenchymal infiltrates versus atypical component of congestive failure The above report was generated using voice recognition software. It may contain grammatical, syntax or spelling errors. Electronically signed by: Rajinder Galeana M.D. 12/06/2016 12:12 PM Dictated Date/Time: 12/06/2016 12:[address] HEAD WITHOUT CONTRAST (CT) CLINICAL HISTORY: Acute change in mental status. Respiratory failure. COMPARISON STUDY: No previous studies for comparison. TECHNIQUE: Axial CT of the brain is performed from the vertex to the skull base. IV contrast was not administered for this examination. A dose lowering technique was utilized adhering to the principles of ALARA. CT DOSE: FINDINGS: No intra or extra-axial mass lesions are visualized. There is no CT evidence of acute cortical infarction. There is no evidence of midline shift. There is no acute hemorrhage. No calvarial fractures are visualized. There are moderate white matter hypodensities likely on a small vessel basis. There is no evidence of pathologic ventricular dilatation. There is mild mucosal thickening within the left maxilla sinus and ethmoid air cells. The study is mildly compromised due to motion artifact. IMPRESSION: 1. Moderate white matter hypodensities likely on a small vessel basis 2. No evidence of acute hemorrhage. No evidence of intracranial mass on this noncontrast study Electronically signed by: Toribio Rodriguez M.D. 12/06/2016 12:57 PM Dictated Date/Time: 12/06/2016 12:56 PM (CHEST FOR PE) ANGIO WITH CT DOSE: 1331.73 mGy.cm HISTORY: Dyspnea chest pain TECHNIQUE: Multiaxial CT images of the chest were performed following the intravenous administration of contrast to evaluate the pulmonary arteries. Maximal intensity projection images were also obtained. A dose lowering technique was utilized adhering to the principles of ALARA. COMPARISON STUDY: None. FINDINGS: Mild atherosclerotic change thoracic aorta. Pulmonary vasculature enhances appropriately. No major filling defects are identified. Findings of prior median sternotomy. Patchy parenchymal infiltrates in the upper lungs bilaterally. Additional parenchymal infiltrative changes identified in the lower lobes bilaterally. Endotracheal tube 2.5 cm above the bisi. Nasogastric tube within the gastric fundus. IMPRESSION: 1. Endotracheal tube 2.5 cm with the bisi. 2. Nasogastric tube within the gastric fundus. 3. No evidence for pulmonary embolus. 4. Patchy bilateral parenchymal infiltrates throughout both hemithoraces. The above report was generated using voice recognition software. It may contain grammatical, syntax or spelling errors. Electronically signed by: Rajinder Galeana M.D. 12/06/2016 1:00 PM Dictated Date/Time: 12/06/2016 12:57 PM Laboratory Results Test 12/06/16 11:42 12/06/16 11:53 12/06/16 11:57 12/06/16 12:15 Bedside Hemoglobin 10.9 g/dl (14.0-18.0) Bedside Hematocrit 32 % (42-52) Bedside Sodium 126 mEq/L (135-144) Bedside Potassium 5.8 mEq/L (3.3-5.0) Bedside Chloride 85 mEq/L (101-112) Bedside Total CO2 35 mEq/l (24-31) Bedside Blood Urea Nitrogen 38 mg/dl (7-18) Bedside Creatinine 1.4 mg/dl (0.6-1.3) Bedside Glucose (other) 151 mg/dl (70-99) Bedside Ionized Calcium (Cara) 1.13 mmol/l (1.12-1.32) Polychromasia 1+ Prothrombin Time 16.7 SECONDS (9.0-12.0) Prothromb Time International Ratio 1.5 (0.9-1.1) Activated Partial Thromboplast Time 35.1 SECONDS (21.0-31.0) Partial Thromboplastin Ratio 1.4 Pro-B-Type Natriuretic Peptide 8716 pg/ml (0-1800) Urine Color DK YELLOW Urine Appearance CLOUDY (CLEAR) Urine pH 5.0 (4.5-7.5) Urine Specific [place] 1.021 (1.000-1.030) Urine Protein 2+ (NEG) Urine Glucose (UA) NEG (NEG) Urine Ketones NEG (NEG) Urine Occult Blood NEG (NEG) Urine Nitrite NEG (NEG) Urine Bilirubin NEG (NEG) Urine Urobilinogen POS (NEG) Urine Leukocyte Esterase NEG (NEG) Urine WBC (Auto) 5-10 /hpf (0-5) Urine RBC (Auto) 5-10 /hpf (0-4) Urine Hyaline Casts (Auto) 1-5 /lpf (0-5) Urine Epithelial Cells (Auto) >30 /lpf (0-5) Urine Bacteria (Auto) NEG (NEG) Urine Renal Epithelial Cells 0-5 /lpf (0-5) Urine Crystals AMORPHOUS SEDIMENT (NONE Urine Pathogenic Casts 0-3 GRANULAR CASTS /lpf (0) Laboratory results per my review. Medications Administered Medications (Trade) Dose Ordered Sig/Janee Route Start Time Stop Time Status Last Admin Dose Admin Miscellaneous (Rapid Sequence Induction Bag) 1 ea STK-MED ONCE N/A 12/06/16 11:21 12/06/16 11:22 DC 12/06/16 11:21 1 EA Propofol (Diprivan Iv Emulsion 100ml Vial) 1 dose STK-MED ONCE IV 12/06/16 11:33 12/06/16 11:34 DC 12/06/16 11:33 1 DOSE Piperacillin Sod/ Tazobactam Sod (Zosyn Iv) 4.5 gm NOW STAT IV 12/06/16 11:45 12/06/16 11:50 DC 12/06/16 11:45 4.5 GM Fentanyl Citrate (Fentanyl Inj) 100 mcg NOW STAT IV 12/06/16 11:54 12/06/16 11:55 DC 12/06/16 11:54 100 MCG Fentanyl Citrate 250 ml @ 0 mls/hr Q0M PRN IV 12/06/16 12:15 12/06/16 16:55 DC 12/06/16 13:49 10 MLS/HR Vancomycin HCl 2250 mg/Sodium Chloride 545 ml @ 200 mls/hr 1145 ONCE IV 12/06/16 11:45 12/06/16 14:28 DC 12/06/16 11:45 200 MLS/HR Midazolam HCl (Versed Inj) 2 mg Q1H PRN IV 12/06/16 14:00 12/06/16 16:03 DC 12/06/16 14:14 2 MG Levofloxacin 0 ml @ 100 mls/hr NOW STAT IV 12/06/16 13:59 12/06/16 15:28 DC 12/06/16 13:59 100 MLS/HR Sodium Chloride 1,000 ml @ 40 mls/hr Q24H IV 12/06/16 14:00 01/05/17 13:59 12/07/16 13:48 125 MLS/HR Procedure Endotracheal Intubation Indication Respiratory failure. The patient was on 100% oxygen via NRB prior to the procedure. Suction, airway equipment, RSI drugs, respiratory equipment, and appropriate personnel were prepared prior to the initiation of the procedure. A time out was taken. Induction was performed with 20 mg of Etomidate 100 mg succinylcholine. After observing the clinical benefit of the medications, the airway was easily visualized utilizing a 4.0 straight blade. A 8.0 size ETT tube was placed atraumatically to 23 cm at the lip using standard technique. The cuff inflated without signs of malfunction. There were bilateral breath sounds, positive colormetric change, no gastric sounds, a good capnography waveform, and post procedure pulse oximetry was 99%. Post intubation sedation and was administered using a propofol drip. There were no complications. Peripheral IV inserted on the EJ on the right peripheral neck. ECG Indication: SOB/dyspnea Rate (beats per minute): 103 Rhythm: atrial fibrillation (with RVR) Findings: nonspecific-ST abn, no acute ischemic change, no ectopy ED Course 1120: Past medical records reviewed. The patient was evaluated in room B1. A complete history and physical examination was performed. 1121: Ordered Rapid Sequence Induction Bag 1 ea NA. 1127: At this time I intubated the patient at this time. See procedure note for further detail. The patient was given 100 mg of Succinylcholine and 20 mg of Etomidate 1133: At this time I placed an EJ on the patient for IV access. See procedure note for further detail. Ordered Propofol 1 dose IV. 1145: Ordered Vancomycin HCl 2250 mg/Sodium Chloride 545 ml @ 200 mls/hr IV, Zosyn IV 4.5 gm IV, Sodium Chloride 1000 ml @ 150 mls/hr IV. 1154: Ordered Fentanyl Citrate 100 mcg IV. 1215: Ordered Fentanyl Citrate 250 ml @ 0 mls/hr IV. 1224: I reevaluated the patient and he is resting. I spoke to the patients at this time. 1313: I discussed the patients case with Dr. Ayala [facility] [place]. He is going to evaluate the patient for further treatment. 1315: I reevaluated the patient and he is resting. I discussed the treatment plan and exam findings with the patients . She verbalized complete understanding and agreement. The patient will be evaluated for further treatment. 1359: Ordered Levofloxacin 0 ml @ 100 mls/hr IV, Versed Inj 2 mg IV. Medical Decision The patient is a 76 year old male who presents to the ED with complaints of respiratory distress. Differentials include pulmonary embolus, congestive heart failure, influenza, other viral illness, pneumonia, urinary tract infection, metabolic abnormality, medication effect, cellulitis, meningitis, intra-abdominal source. This pt was evaluated and appeared to be in no distress. IV access was obtained and lab work was drawn. Pt was placed on the awake overnight monitor and is found to be in a rapid afib, rate 110s. Pt has a depressed mental status, minimally responsive with borderline o2 sats w NRB. Intubation was performed. IV access was poor, a right EJ was placed by me for lab draw and another peripheral site. CXR reveals ETT in good position, PNA vs CHF, likely both. IV sedation with propofol was initiated, cultures and lactate drawn. Pt was given IV vancomycin, zosyn and levaquin. IVF were continued gently. Pt BP dropped on propofol and pt was switched to versed/fentanyl gtt. Family was informed of the findings. Dr Ayala of the hospitalist service was consulted. He will evaluate the pt for admission and further management. Medication Reconcilliation Current Medication List: was personally reviewed by me Blood Pressure Screening Patient's blood pressure: Normal blood pressure Blood pressure disposition: Did not require urgent referral Episodes of hypotension are related to medications and infections. This is referred to the hospitalist. Consults Time Called: 1312 Consulting Physician: ROMINA Sorensen Returned Call: 1313 I discussed the patients case with ROMINA Sorensen. He is going to evaluate the patient for further treatment. Impression Primary Impression: Bilateral pneumonia Additional Impressions: Pulmonary congestion Cardiac ischemia Respiratory failure Critical Care I have personally spent greater than 90 minutes of critical care time in the direct management of this patient. This includes bedside care, interpretation of diagnostic studies, and testing, discussion with consultants, patient, and family members, and other required patient management activities. This 90 minutes is in excess of all separately billable procedures. Scribe Attestation The scribe's documentation has been prepared under my direction and personally reviewed by me in its entirety. I confirm that the note above accurately reflects all work, treatment, procedures, and medical decision making performed by me. Departure Information Dispostion Being Evaluated By Hospitalist Referrals Ken Worthington M.D. (PCP) Problem Qualifiers
[2016-12-06] MEDS ORDERED: OPTIRAY 320 IV PRN (12:00)
[2016-12-06 12:08] LABS: ISTAT ARTERIAL BLOOD GAS HCO3 35 meq/L (19-24); ISTAT ARTERIAL BLOOD GAS PCO2 80 mmHg (35-46); ISTAT ARTERIAL BLOOD GAS PO2 173 mmHg (80-95); ISTAT ARTERIAL BLOOD GAS pH 7.25 (7.35-7.45); ISTAT CARBON DIOXIDE 38 mEq/l (24-31)
--- NOTE | 2016-12-06 12:13 | DIAGNOSTIC IMAGING REPORT ---
CHEST ONE VIEW PORTABLE CLINICAL HISTORY: intubation, reps failure COMPARISON STUDY: 11/04/2016 FINDINGS: Endotracheal tube 2 cm above the bisi. Moderate cardiomegaly. Patchy bilateral parenchymal infiltrates versus atypical congestive failure. IMPRESSION: 1. Endotracheal tube 2 cm with a chronic. 2. Bilateral patchy parenchymal infiltrates versus atypical component of congestive failure The above report was generated using voice recognition software. It may contain grammatical, syntax or spelling errors. Electronically signed by: Rajinder Galeana M.D. 12/06/2016 12:12 PM Dictated Date/Time: 12/06/2016 12:11 PM
[2016-12-06 12:15] LABS: INR 1.5 (0.9-1.1); PARTIAL THROMBOPLASTIN RATIO 1.4; PROTHROMBIN TIME (PATIENT) 16.7 SECONDS (9.0-12.0)
[2016-12-06] MEDS ORDERED: FENTANYL 1250MCG/250ML NSS 250 ML IV PRN (12:15)
[2016-12-06 12:29] LABS: BLOOD UREA NITROGEN 27 mg/dl (7-18); BUN/CREATININE RATIO 20.8 (10-20); CALCIUM 8.6 mg/dl (8.5-10.1); CARBON DIOXIDE 34 mmol/L (21-32); CHLORIDE 88 mmol/L (98-107); CREATININE 1.29 mg/dl (0.60-1.40); GLUCOSE 145 mg/dl (70-99); MAGNESIUM 2.3 mg/dl (1.8-2.4); POTASSIUM 5.1 mmol/L (3.5-5.1); SODIUM 126 mmol/L (136-145)
[2016-12-06 12:34] LABS: ALKALINE PHOSPHATASE 147 U/L (45-117); ALT/SGPT 47 U/L (12-78); AST/SGOT 39 U/L (15-37)
[2016-12-06] MEDS ORDERED: OXYC-57 PO (12:34)
[2016-12-06] MEDS ORDERED: DOCU100C31 PO (12:34)
[2016-12-06] MEDS ORDERED: SLWMEC PO (12:34)
[2016-12-06] MEDS ORDERED: FLUT50SP45 (12:34)
[2016-12-06] MEDS ORDERED: METO100T44 PO (12:34)
[2016-12-06] MEDS ORDERED: AMIO200T4 PO (12:34)
[2016-12-06] MEDS ORDERED: LATA0.5S OPL (12:34)
[2016-12-06] MEDS ORDERED: CYAN100T6 PO (12:34)
[2016-12-06 12:38] LABS: URINE APPEARANCE CLOUDY (CLEAR); URINE COLOR DK YELLOW; URINE EPITHELIAL CELL AUTO >30 /lpf (0-5); URINE NITRITE NEG (NEG); URINE SPECIFIC GRAVITY 1.021 (1.000-1.030); UROBILINOGEN POS (NEG); ZZURINE CULT IF INDIC CATH NO
[2016-12-06 12:57] LABS: MANUAL MICROSCOPIC REQUIRED? NO; REVIEW REQ? YES; URINE BILIRUBIN NEG (NEG)
--- NOTE | 2016-12-06 12:58 | DIAGNOSTIC IMAGING REPORT ---
CT HEAD WITHOUT CONTRAST (CT) CLINICAL HISTORY: Acute change in mental status. Respiratory failure. COMPARISON STUDY: No previous studies for comparison. TECHNIQUE: Axial CT of the brain is performed from the vertex to the skull base. IV contrast was not administered for this examination. A dose lowering technique was utilized adhering to the principles of ALARA. CT DOSE: FINDINGS: No intra or extra-axial mass lesions are visualized. There is no CT evidence of acute cortical infarction. There is no evidence of midline shift. There is no acute hemorrhage. No calvarial fractures are visualized. There are moderate white matter hypodensities likely on a small vessel basis. There is no evidence of pathologic ventricular dilatation. There is mild mucosal thickening within the left maxilla sinus and ethmoid air cells. The study is mildly compromised due to motion artifact. IMPRESSION: 1. Moderate white matter hypodensities likely on a small vessel basis 2. No evidence of acute hemorrhage. No evidence of intracranial mass on this noncontrast study Electronically signed by: Toribio Rodriguez M.D. 12/06/2016 12:57 PM Dictated Date/Time: 12/06/2016 12:56 PM
--- NOTE | 2016-12-06 13:01 | DIAGNOSTIC IMAGING REPORT ---
(CHEST FOR PE) ANGIO WITH CT DOSE: 1331.73 mGy.cm HISTORY: Dyspnea chest pain TECHNIQUE: Multiaxial CT images of the chest were performed following the intravenous administration of contrast to evaluate the pulmonary arteries. Maximal intensity projection images were also obtained. A dose lowering technique was utilized adhering to the principles of ALARA. COMPARISON STUDY: None. FINDINGS: Mild atherosclerotic change thoracic aorta. Pulmonary vasculature enhances appropriately. No major filling defects are identified. Findings of prior median sternotomy. Patchy parenchymal infiltrates in the upper lungs bilaterally. Additional parenchymal infiltrative changes identified in the lower lobes bilaterally. Endotracheal tube 2.5 cm above the bisi. Nasogastric tube within the gastric fundus. IMPRESSION: 1. Endotracheal tube 2.5 cm with the bisi. 2. Nasogastric tube within the gastric fundus. 3. No evidence for pulmonary embolus. 4. Patchy bilateral parenchymal infiltrates throughout both hemithoraces. The above report was generated using voice recognition software. It may contain grammatical, syntax or spelling errors. Electronically signed by: Rajinder Galeana M.D. 12/06/2016 1:00 PM Dictated Date/Time: 12/06/2016 12:57 PM
[2016-12-06 13:12] LABS: URINE PATH CASTS 0-3 GRANULAR CASTS /lpf (0)
[2016-12-06 13:16] LABS: BASO % 0.1 %; BASO ABS # 0.01 K/uL (0-0.2); COMPLETE YES; EOS % 1.9 %; HEMATOCRIT 30.6 % (42-52); IG% 0.1 %; LYMPH % 8.1 %; MEAN CELL VOLUME 87.9 fL (80-100); MEAN CORPUSCULAR HEMOGLOBIN 28.2 pg (25-34); MEAN PLATELET VOLUME 10.5 fL (7.4-10.4); MONO % 18.6 %; NEUT % 71.2 %; PLATELET COUNT 260 K/uL (130-400); POLYCHROMASIA 1+; RED BLOOD COUNT 3.48 M/uL (4.7-6.1); WHITE BLOOD COUNT 7.41 K/uL (4.8-10.8)
[2016-12-06] MEDS ORDERED: DEXTROSE IV STA (13:48)
[2016-12-06] MEDS ORDERED: LEVOFLOXACIN IV STA (13:48)
[2016-12-06] MEDS ORDERED: LEVOFLOXACIN / D5W 750 MG IV STA (13:59)
[2016-12-06] MEDS ORDERED: SENN8.6T7 PO (13:59)
[2016-12-06] MEDS ORDERED: METO-596 PO (13:59)
[2016-12-06] MEDS ORDERED: DILT1CAP15 PO (13:59)
[2016-12-06] MEDS ORDERED: OXYC1CAP5 PO (13:59)
[2016-12-06] MEDS ORDERED: MIDAZOLAM HCL 1 MG/ML 2ML VIAL IV PRN (14:00)
--- NOTE | 2016-12-06 14:41 | History and Physical ---
History & Physical Date & Time of Service: Dec 06, 2016 at 14:19 Chief Complaint: Aloc/Ams Primary Care Physician: Ken Worthington M.D. History of Present Illness Source: patient, clinic records, hospital records This is a 76 y/o male with a history of a-fib, HTN, HLD, CAD, right sided heart failure, COPD, and DM II who presented to the ED on 12/06 with respiratory failure and syncope. The patient was intubated upon my arrival, no family at bedside. History obtained via ED physician who had spoken to patient's . The patient had been rehabilitating at [facility] following a right hip and pelvis fracture and repair. He developed some intermittent shortness of breath and had been treated with supplemental oxygen. He then developed a cough and was found to have a pneumonia. He was treated with Augmentin. The patient apparently was getting worse and was frustrated with his care at [facility], so he signed out AMA today. As he was leaving and getting into his car, he then had a syncopal episode. Past Medical/Surgical History Medical Problems: (1) Coronary artery disease Status: Chronic (2) Hyperlipidemia Status: Chronic (3) Hypertension Status: Chronic (4) TX (myocardial infarction) Status: Chronic (5) Neuropathy Status: Chronic (6) SANDOR (obstructive sleep apnea) Status: Chronic A-fib COPD DM II Surgical Problems: (1) History of cataract surgery Status: Resolved (2) History of coronary artery stent placement Status: Resolved (3) History of dental implant Status: Resolved Family History Cancer FHx: CAD (brothers) Hypertension Kidney disease Social History Unable to obtain social history due to pt condition. Smoking Status: Former Smoker Marital Status: Housing status: other ([facility]) Occupational Status: retired Immunizations History of Influenza Vaccine: Yes History of Tetanus Vaccine?: No History of Pneumococcal: No History of Hepatitis B Vaccine: No Multi-Drug Resistant Organisms History of MDRO: Yes Allergies Coded Allergies: No Known Allergies (Verified , 12/06/16) Home Medications Scheduled Amiodarone Hcl (Cordarone), 1 TAB PO DAILY Aspirin (Aspirin Ec), 81 MG PO DAILY Cyanocobalamin (Vitamin B12 100 Mcg), 100 MCG PO DAILY Diltiazem Hcl Coated Beads (Diltiazem Hcl Er), 360 MG PO DAILY Fluticasone Prop/Salmeterol (Advair Diskus 250/50 60 Dose), 1 PUFF INH BID Fluticasone Propionate (Nasal) (Allergy Nasal [place] 24 Ho), 2 SPRAY NA DAILY Furosemide (Lasix), 2 TAB PO QAM Furosemide (Lasix), 1 TAB PO QDD Ipratropium-Albuterol (Duoneb), 1 TREATMENT INH Q4H Latanoprost (Xalatan 0.005% Oph Fannie), 1 DROPS OPL HS Metoprolol Tartrate (Lopressor), 100 MG PO BID Omeprazole (Prilosec), 20 MG PO BID Potassium Chloride (Micro-K Ext Rel), 1 TAB PO BID Rivaroxaban (Xarelto), 1 TAB PO HS Simvastatin (Zocor), 10 MG PO QPM Scheduled PRN Oxycodone Hcl (Oxycodone Hcl), 1 CAP PO Q12 PRN for Pain Sennosides-Docusate Sodium (Senokot S), 1 TAB PO QDL PRN for Consult Review of Systems Unable to obtain ROS from patient due to intubation. Physical Exam Vital Signs Date Time Temp Pulse Resp B/P (MAP) Pulse Ox O2 Delivery O2 Flow Rate FiO2 12/06/16 14:10 82 22 100/61 99 Mechanical Ventilator 12/06/16 14:06 81 22 97/64 98 Mechanical Ventilator 12/06/16 14:01 96 22 85/48 99 Mechanical Ventilator 15.0 60 12/06/16 13:57 86 22 97/63 98 Mechanical Ventilator 15.0 60 12/06/16 13:52 90 22 93/55 100 Mechanical Ventilator 15.0 60 12/06/16 13:43 80 22 108/70 100 Mechanical Ventilator 15.0 60 12/06/16 13:30 93 22 101/66 99 Mechanical Ventilator 15.0 60 12/06/16 13:22 101 22 114/61 96 Mechanical Ventilator 15.0 60 12/06/16 13:06 96 22 103/60 94 Mechanical Ventilator 15.0 60 12/06/16 13:05 110 12/06/16 12:51 102 22 118/70 99 Mechanical Ventilator 15.0 60 12/06/16 12:23 107 21 125/97 92 Mechanical Ventilator 15.0 60 12/06/16 12:15 92 22 86/56 97 Mechanical Ventilator 15.0 60 12/06/16 12:10 101 17 86/54 98 Mechanical Ventilator 15.0 60 12/06/16 12:10 60 12/06/16 12:07 99 10 81/51 98 Mechanical Ventilator 15.0 60 12/06/16 12:02 108 22 92/56 99 Mechanical Ventilator 15.0 60 12/06/16 12:00 108 22 105/69 98 Mechanical Ventilator 15.0 60 12/06/16 11:53 110 16 115/68 96 Mechanical Ventilator 15.0 100 12/06/16 11:49 112 20 126/88 100 Mechanical Ventilator 15.0 100 12/06/16 11:36 120 22 146/88 99 Ambu-Bag 15.0 12/06/16 11:31 120 22 87 Ambu-Bag 15.0 12/06/16 11:25 37.2 108 38 152/74 92 Nebulizer 6.0 12/06/16 11:22 115 12/06/16 11:15 85 General appearance: +Obese. Well-developed, well-nourished, no apparent distress Head: Normocephalic, atraumatic Eyes: +Exam limited due to pt condition. ENT: +Exam limited by ET tube and NGT, pt unresponsive. Neck: Supple, no JVD, trachea midline Respiratory/Chest: +Wheezing throughout, decreased breath sounds in bases bilaterally. Intubated. No respiratory distress Cardiovascular: +Irregularly irregular, rate controlled. No gallop, no murmur Abdomen/GI: Normal bowel sounds, non-tender, soft Extremities/Musculoskeletal: +2-3+ pitting edema in lower extremities R>L. Normal inspection, no calf tenderness Neurological/Psych: +Sedated and intubated, unable to assess mood or orientation. Skin: Normal color, warm/dry, no rash Diagnostics Laboratory Results Results Past 24 Hours Test 12/06/16 11:42 12/06/16 11:52 12/06/16 11:53 12/06/16 11:55 Range/Units Bedside Hemoglobin 10.9 14.0-18.0 g/dl Bedside Hematocrit 32 42-52 % Bedside Sodium 126 135-144 mEq/L Bedside Potassium 5.8 3.3-5.0 mEq/L Bedside Chloride 85 101-112 mEq/L Bedside Total CO2 35 24-31 mEq/l Anion Gap 12.0 16-25 mmol/L Bedside Blood Urea Nitrogen 38 7-18 mg/dl Bedside Creatinine 1.4 0.6-1.3 mg/dl Bedside Glucose (other) 151 70-99 mg/dl Bedside Ionized Calcium (Cara) 1.13 1.12-1.32 mmol/l Bedside Blood Gas pH (LAB) 7.25 7.35-7.45 Bedside Blood Gas pCO2 (LAB) 80 35-46 mmHg Bedside Blood Gas pO2 (LAB) 173 80-95 mmHg Bedside Blood Gas HCO3 (LAB) 35 19-24 meq/L Bedside Blood Gas Total CO2 38 24-31 mEq/l Bedside Blood Gas Base Excess (LAB) 8.0 -9-1.8 meq/L Bedside Blood Gas O2 Saturation 99.0 90-95 % White Blood Count 7.41 4.8-10.8 K/uL Red Blood Count 3.48 4.7-6.1 M/uL Hemoglobin 9.8 14.0-18.0 g/dL Hematocrit 30.6 42-52 % Mean Corpuscular Volume 87.9 80-100 fL Mean Corpuscular Hemoglobin 28.2 25-34 pg Mean Corpuscular Hemoglobin Concent 32.0 32-36 g/dl Platelet Count 260 130-400 K/uL Mean Platelet Volume 10.5 7.4-10.4 fL Neutrophils (%) (Auto) 71.2 % Lymphocytes (%) (Auto) 8.1 % Monocytes (%) (Auto) 18.6 % Eosinophils (%) (Auto) 1.9 % Basophils (%) (Auto) 0.1 % Neutrophils # (Auto) 5.27 1.4-6.5 K/uL Lymphocytes # (Auto) 0.60 1.2-3.4 K/uL Monocytes # (Auto) 1.38 0.11-0.59 K/uL Eosinophils # (Auto) 0.14 0-0.5 K/uL Basophils # (Auto) 0.01 0-0.2 K/uL RDW Standard Deviation 47.9 36.4-46.3 fL RDW Coefficient of Variation 14.9 11.5-14.5 % Immature Granulocyte % (Auto) 0.1 % Immature Granulocyte # (Auto) 0.01 0.00-0.02 K/uL Nucleated RBC Absolute Count (auto) 0.06 0-0 K/uL Nucleated Red Blood Cells % 0.8 % Polychromasia 1+ Prothrombin Time 16.7 9.0-12.0 SECONDS Prothromb Time International Ratio 1.5 0.9-1.1 Activated Partial Thromboplast Time 35.1 21.0-31.0 SECONDS Partial Thromboplastin Ratio 1.4 Lactic Acid Level 2.7 0.4-2.0 mmol/L Test 12/06/16 11:57 12/06/16 12:15 12/06/16 13:56 Range/Units Sodium Level 126 136-145 mmol/L Potassium Level 5.1 3.5-5.1 mmol/L Chloride Level 88 98-107 mmol/L Carbon Dioxide Level 34 21-32 mmol/L Anion Gap 4.0 3-11 mmol/L Blood Urea Nitrogen 27 7-18 mg/dl Creatinine 1.29 0.60-1.40 mg/dl Estimated GFR () 61.1 Estimated GFR (Non- 52.8 BUN/Creatinine Ratio 20.8 10-20 Random Glucose 145 70-99 mg/dl Calcium Level 8.6 8.5-10.1 mg/dl Magnesium Level 2.3 1.8-2.4 mg/dl Total Bilirubin 1.2 0.2-1 mg/dl Direct Bilirubin 0.8 0-0.2 mg/dl Aspartate Amino Transf (AST/SGOT) 39 15-37 U/L Alanine Aminotransferase (ALT/SGPT) 47 12-78 U/L Alkaline Phosphatase 147 45-117 U/L Troponin I < 0.015 0-0.045 ng/ml Pro-B-Type Natriuretic Peptide 8716 0-1800 pg/ml Total Protein 7.5 6.4-8.2 gm/dl Albumin 2.6 3.4-5.0 gm/dl Urine Color DK YELLOW Urine Appearance CLOUDY CLEAR Urine pH 5.0 4.5-7.5 Urine Specific Magnet 1.021 1.000-1.030 Urine Protein 2+ NEG Urine Glucose (UA) NEG NEG Urine Ketones NEG NEG Urine Occult Blood NEG NEG Urine Nitrite NEG NEG Urine Bilirubin NEG NEG Urine Urobilinogen POS NEG Urine Leukocyte Esterase NEG NEG Urine WBC (Auto) 5-10 0-5 /hpf Urine RBC (Auto) 5-10 0-4 /hpf Urine Hyaline Casts (Auto) 1-5 0-5 /lpf Urine Epithelial Cells (Auto) >30 0-5 /lpf Urine Bacteria (Auto) NEG NEG Urine Renal Epithelial Cells 0-5 0-5 /lpf Urine Crystals AMORPHOUS SEDIMENT NONE PRSENT Urine Pathogenic Casts 0-3 GRANULAR CASTS 0 /lpf Microbiology Results 12/06/16 Blood Culture, Received Pending 12/06/16 Blood Culture, Received Pending Diagnostic Radiology Reviewed the following studies and agree with interpretation as follows: Patient Name: JOHN ACUÑA Unit Number: [id number] Dictated: 12/06/161255 Transcribed: 12/06/161255 ARG Printed Date/Time: [~ rep prt dt]/[~ rep prt tm] [~ rep ct labl] - [~ rep ct ivnm] [facility] [place] [address] Dictated: 12/06/161255 Transcribed: 12/06/161255 ARG Printed Date/Time: [~ rep prt dt]/[~ rep prt tm] [~ rep ct labl] - [~ rep ct ivnm] Patient: JOHN ACUÑA Address1: [address] [place] [address] Rec: [id number] Address2: Acct ID: [id number] [facility] Zip: [place] [address] Date: 1940 Sex: M Room/Bed: Ref Phy: Ken Worthington M.D. SC: LUCY Att Phy: Report #: [id number] Mara Phy: Ken Worthington M.D. Test: HWO Admit Phy: [employer] Consultant: NAIN Interpreting Phy: Toribio Rodriguez M.D. Diagnosis: ALOC/AMS Ordering Phy: Marline Fleming M.D. Service Date: 12/06/16 Admit Date: 12/06/16 MNE: PWRSCRIBE CONF: DICTATED BY: Toribio Rodriguez M.D.]] CC: Ken Worthington M.D. Flickinger, Bridget B., M.D. Endcc: [~ rep ct add3]] CT HEAD WITHOUT CONTRAST (CT) CLINICAL HISTORY: Acute change in mental status. Respiratory failure. COMPARISON STUDY: No previous studies for comparison. TECHNIQUE: Axial CT of the brain is performed from the vertex to the skull base. IV contrast was not administered for this examination. A dose lowering technique was utilized adhering to the principles of ALARA. CT DOSE: FINDINGS: No intra or extra-axial mass lesions are visualized. There is no CT evidence of acute cortical infarction. There is no evidence of midline shift. There is no acute hemorrhage. No calvarial fractures are visualized. There are moderate white matter hypodensities likely on a small vessel basis. There is no evidence of pathologic ventricular dilatation. There is mild mucosal thickening within the left maxilla sinus and ethmoid air cells. The study is mildly compromised due to motion artifact. IMPRESSION: 1. Moderate white matter hypodensities likely on a small vessel basis 2. No evidence of acute hemorrhage. No evidence of intracranial mass on this noncontrast study Electronically signed by: Toribio Rodriguez M.D. 12/06/2016 12:57 PM Dictated Date/Time: 12/06/2016 12:56 PM The status of this report is Signed. Draft = Not yet reviewed or approved by Radiologist. Signed = Reviewed and approved by Radiologist. <AttendingPhy></AttendingPhy> <FamilyPhy>Ken Worthington M.D.</FamilyPhy> < PrimaryPhy>Ken Worthington M.D.</PrimaryPhy> <UnitNumber>[id number]</UnitNumber > <VisitNumber>[id number]</VisitNumber> <PatientName>JOHN ACUÑA</ PatientName> <DateOfBirth>1940</DateOfBirth> <Location>C.EDB</Location> < ServiceDate>12/06/16</ServiceDate> <MNE>ESINDI</MNE> <OrderingPhy>Marline Fleming M.D.</OrderingPhy> <OrderingPhyMNE>f rep ord dr yang</OrderingPhyMNE> < DictatingPhyMNE>f rep dict dr yang</DictatingPhyMNE> <CCListMNE>f rep ct mne</ CCListMNE> <AdmittingPhyMNE>f pt admit dr yang</AdmittingPhyMNE> <AttendingPhyMNE >f pt attend dr yang</AttendingPhyMNE> <ConsultingPhyMNE>f pt consult dr yang</ConsultingPhyMNE> <FamilyPhyMNE>f pt fam dr yang</FamilyPhyMNE> <OtherPhyMNE>f pt other dr yang</OtherPhyMNE> < PrimaryPhyMNE>f pt prim care dr yang</PrimaryPhyMNE> <ReferringPhyMNE>f pt referring dr yang</ReferringPhyMNE> Patient Name: JOHN ACUÑA Unit Number: [id number] Dictated: 12/06/16 1257 Transcribed: 12/06/16 1257 MS Printed Date/Time: [~ rep prt dt]/[~ rep prt tm] [~ rep ct labl] - [~ rep ct ivnm] [facility] [place] [address] Dictated: 12/06/16 1257 Transcribed: 12/06/16 1257 MS Printed Date/Time: [~ rep prt dt]/[~ rep prt tm] [~ rep ct labl] - [~ rep ct ivnm] Patient: JOHN ACUÑA Address1: [address] [place] [address] Rec: [id number] Address2: Acct ID: [id number] [facility] Zip: [place] [address] Date: 1940 Sex: M Room/Bed: Ref Phy: Ken Worthington M.D. SC: LUCY Att Phy: Report #: [id number] Mara Phy: Ken Worthington M.D. Test: CXPEA Admit Phy: [employer] Consultant: NAIN Interpreting Phy: Rajinder Galeana M.D. Diagnosis: ALOC/AMS Ordering Phy: Marline Fleming M.D. Service Date: 12/06/16 Admit Date: 12/06/16 MNE: PWRSCRIBE CONF: DICTATED BY: Rajinder Galeana M.D.]] CC: Ken Worthington M.D. Flickinger, Bridget B., M.D. Endcc: [~ rep ct add3]] (CHEST FOR PE) ANGIO WITH CT DOSE: 1331.73 mGy.cm HISTORY: Dyspnea chest pain TECHNIQUE: Multiaxial CT images of the chest were performed following the intravenous administration of contrast to evaluate the pulmonary arteries. Maximal intensity projection images were also obtained. A dose lowering technique was utilized adhering to the principles of ALARA. COMPARISON STUDY: None. FINDINGS: Mild atherosclerotic change thoracic aorta. Pulmonary vasculature enhances appropriately. No major filling defects are identified. Findings of prior median sternotomy. Patchy parenchymal infiltrates in the upper lungs bilaterally. Additional parenchymal infiltrative changes identified in the lower lobes bilaterally. Endotracheal tube 2.5 cm above the bisi. Nasogastric tube within the gastric fundus. IMPRESSION: 1. Endotracheal tube 2.5 cm with the bisi. 2. Nasogastric tube within the gastric fundus. 3. No evidence for pulmonary embolus. 4. Patchy bilateral parenchymal infiltrates throughout both hemithoraces. The above report was generated using voice recognition software. It may contain grammatical, syntax or spelling errors. Electronically signed by: Rajinder Galeana M.D. 12/06/2016 1:00 PM Dictated Date/Time: 12/06/2016 12:57 PM The status of this report is Signed. Draft = Not yet reviewed or approved by Radiologist. Signed = Reviewed and approved by Radiologist. <AttendingPhy></AttendingPhy> <FamilyPhy>Ken Worthington M.D.</FamilyPhy> < PrimaryPhy>Ken Worthington M.D.</PrimaryPhy> <UnitNumber>[id number]</UnitNumber > <VisitNumber>[id number]</VisitNumber> <PatientName>DOMENICOJOHN</ PatientName> <DateOfBirth>1940</DateOfBirth> <Location>C.EDB</Location> < ServiceDate>12/06/16</ServiceDate> <MNE>ESINDI</MNE> <OrderingPhy>Marline Fleming M.D.</OrderingPhy> <OrderingPhyMNE>f rep ord dr yang</OrderingPhyMNE> < DictatingPhyMNE>f rep dict dr yang</DictatingPhyMNE> <CCListMNE>f rep ct saminae</ CCListMNE> <AdmittingPhyMNE>f pt admit dr yang</AdmittingPhyMNE> <AttendingPhyMNE >f pt attend dr yang</AttendingPhyMNE> <ConsultingPhyMNE>f pt consult dr yang</ConsultingPhyMNE> <FamilyPhyMNE>f pt fam dr yang</FamilyPhyMNE> <OtherPhyMNE>f pt other dr yang</OtherPhyMNE> < PrimaryPhyMNE>f pt prim care dr yang</PrimaryPhyMNE> <ReferringPhyMNE>f pt referring dr yang</ReferringPhyMNE> Patient Name: JOHN ACUÑA Unit Number: [id number] Dictated: 12/06/161210 Transcribed: 12/06/161210 MS Printed Date/Time: [~ rep prt dt]/[~ rep prt tm] [~ rep ct labl] - [~ rep ct ivnm] [facility] [place] [address] Dictated: 12/06/161210 Transcribed: 12/06/161210 MS Printed Date/Time: [~ rep prt dt]/[~ rep prt tm] [~ rep ct labl] - [~ rep ct ivnm] Patient: JOHN ACUÑA Address1: [address] [place] [address] Rec: [id number] Address2: Acct ID: [id number] [facility] Zip: [place] [address] Date: 1940 Sex: M Room/Bed: Ref Phy: Ken Worthington M.D. SC: LUCY Att Phy: Report #: [id number] Mara Phy: Ken Worthington M.D. Test: CXR1P Admit Phy: [employer] Consultant: EMIGDIO Interpreting Phy: Rajinder Galeana M.D. Diagnosis: ALOC/AMS Ordering Phy: Marline Fleming M.D. Service Date: 12/06/16 Admit Date: 12/06/16 MNE: PWRSCRIBE CONF: DICTATED BY: Rajinder Galeana M.D.]] CC: Ken Worthington M.D. Flickinger, Bridget B., M.D. Endcc: [~ rep ct add3]] CHEST ONE VIEW PORTABLE CLINICAL HISTORY: intubation, reps failure COMPARISON STUDY: 11/04/2016 FINDINGS: Endotracheal tube 2 cm above the bisi. Moderate cardiomegaly. Patchy bilateral parenchymal infiltrates versus atypical congestive failure. IMPRESSION: 1. Endotracheal tube 2 cm with a chronic. 2. Bilateral patchy parenchymal infiltrates versus atypical component of congestive failure The above report was generated using voice recognition software. It may contain grammatical, syntax or spelling errors. Electronically signed by: Rajinder Galeana M.D. 12/06/2016 12:12 PM Dictated Date/Time: 12/06/2016 12:11 PM The status of this report is Signed. Draft = Not yet reviewed or approved by Radiologist. Signed = Reviewed and approved by Radiologist. <AttendingPhy></AttendingPhy> <FamilyPhy>Ken Worthington M.D.</FamilyPhy> < PrimaryPhy>Ken Worthington M.D.</PrimaryPhy> <UnitNumber>[id number]</UnitNumber > <VisitNumber>[id number]</VisitNumber> <PatientName>JOHN ACUÑA</ PatientName> <DateOfBirth>1940</DateOfBirth> <Location>C.EDB</Location> < ServiceDate>12/06/16</ServiceDate> <MNE>ESINDI</MNE> <OrderingPhy>Marline Fleming M.D.</OrderingPhy> <OrderingPhyMNE>f rep ord dr yang</OrderingPhyMNE> < DictatingPhyMNE>f rep dict dr yang</DictatingPhyMNE> <CCListMNE>f rep ct mne</ CCListMNE> <AdmittingPhyMNE>f pt admit dr yang</AdmittingPhyMNE> <AttendingPhyMNE >f pt attend dr yang</AttendingPhyMNE> <ConsultingPhyMNE>f pt consult dr yang</ConsultingPhyMNE> <FamilyPhyMNE>f pt fam dr yang</FamilyPhyMNE> <OtherPhyMNE>f pt other dr yang</OtherPhyMNE> < PrimaryPhyMNE>f pt prim care dr yang</PrimaryPhyMNE> <ReferringPhyMNE>f pt referring dr yang</ReferringPhyMNE> EKG Reviewed EKG and agree with interpretation as follows: 118 bpm, a-fib with RVR 103 bpm, a-fib with RVR Impression Assessment and Plan 76 y/o male with a history of a-fib, HTN, HLD, CAD, right sided heart failure, COPD, and DM II who presented to the ED on 12/06 with respiratory failure and syncope. Pt intubated by ED physician. Head CT negative. Chest CTA negative for PE. CXR shows bilateral patchy infiltrates. EKG shows a-fib with RVR, no acute ischemic changes. Troponin negative. WBC WNL. INR 1.5. Sodium 126. Lactic acid 2.7. LFTs elevated. POC ABG shows pH 7.25, pCO2 80, pO2 173 and HCO3 35. Sepsis and acute respiratory failure secondary to pneumonia -Admit to ICU. Dr. Tavarez aware, will manage -Pt intubated -Continue IV antibiotics per ICU. Pt received vancomycin and Zosyn in ED -NSS at 125 cc/hr -Repeat lactic acid at 1600 -Blood cultures pending Syncope -Echo ordered -Trend cardiac enzymes q8h x 3. First troponin negative A-fib with RVR--resolving, rate controlled on my exam -Magnesium 2.3 -Pt takes ASA 81 mg PO qd, diltiazem 360 mg PO qd, amiodarone 200 mg PO qd and Xarelto 20 mg PO qd at home Mild LFT elevation, elevated INR--likely secondary to sepsis -Continue to monitor HTN--stable. Pt did develop hypotension in ED, but BP now WNL -Pt takes Lopressor 100 mg PO BID ([facility] records indicate 100 mg PO TID) HLD -Simvastatin 10 mg PO qd COPD -Pt had scheduled DuoNebs q4h, Advair 1 puff inh BID DM II--last HgbA1c checked 10/07/16 was 6.2 -Insulin sliding scale -Check BSGs q ac and qhs DVT prophylaxis -Enoxaparin 40 mg SC q24h for now while NPO. Can d/c this and resume home Xarelto when able -ALPHONSO burrell and SCDs Code Status -Level I, FULL RESUSCITATION STATUS i personally examined pt and verified all lin points w A [facility]ier PAC no HPI from pt. HPI and ROS as above as best can be obtained vitals noted intubated sedated nad, lungs coarse rhonchi R, surprisingly clear L acute hypoxic respiratory failure from multifocal pneumonia - admit ICU. broad abx, otherwise as above. d/w ICU team by A [facility] PAC Level of Care Critical Care Resuscitation Status FULL RESUSCITATION VTE Prophylaxis VTE Risk Assessment Done? Y/N: Yes Risk Level: Moderate Given or contraindicated: Enoxaparin (Lovenox)SQ, T.E.D. Stockings, SCD's
[2016-12-06] MEDS ORDERED: DEXTROSE 50% 50 ML SYR IV PRN (14:45)
[2016-12-06] MEDS ORDERED: GLUCOSE 10 TABS/TUBE PO PRN (14:45)
[2016-12-06] MEDS ORDERED: GLUCAGON FOR INJ 1 MG VIAL SQ PRN (14:45)
[2016-12-06] MEDS ORDERED: GLUCOSE 40% GEL 15 GM TUBE PO PRN (14:45)
[2016-12-06] MEDS ORDERED: INSULIN ASPART 100 UNITS/ML 3 ML PEN SC SCH (16:00)
[2016-12-06] MEDS ORDERED: PATIENT'S HEIGHT AND/OR WEIGHT NEEDED SCH (16:00)
[2016-12-06] MEDS ORDERED: ENOXAPARIN 40 MG/0.4 ML SYR SQ SCH (16:00)
--- NOTE | 2016-12-06 16:46 | Critical Care Consultation ---
Critical Care Consultation Date of Consultation: Dec 06, 2016. Attending Physician: Jeremy Ayala D.O. Reason for Consultation: Resident Physician Supervision Note: I was present with Dr. Gilbert Bruno during the history and exam. I discussed the case with the resident and agree with the findings and plan as documented in the note. In summary, the patient is a 76 year old gentleman with history of atrial fibrillation on Xarelto, coronary artery disease, status post CABG, hypertension, hyperlipidemia, CHF, COPD on 2 L of oxygen, SANDOR on CPAP at night who was brought to [facility] for unresponsiveness while signing AMA from rehabilitation facility. As per his , patient suffered a right acetabular fracture on 11/05. He underwent total hip arthroplasty at [facility] on 11/08/2016. Postoperatively patient was transferred to [facility] for rehabilitation. Over there, patient was diagnosed with pneumonia and treated with Augmentin. Patient required oxygen per nasal cannula. He was somewhat confused and short of breath while signing AGAINST MEDICAL ADVICE. Patient was transferred in the wheelchair to his car off oxygen. He managed to get into the vehicle and immediately slumped over and became unresponsive. He was no witnessed seizure. Ambulance was called, patient was brought to [facility]. She required to be intubated as he was hypoxic and was not able to protect his airways adequately. Patient was transferred critically ill to surgical intensive care unit for further evaluation. Assessment and plan:. 1. Acute respiratory failure likely multifactorial secondary to pneumonia and COPD exacerbation. We'll continue with full mechanical valve support. 2. Pneumonia. We'll start patient on vancomycin and Zosyn empirically while awaiting for cultures. 3. COPD for what will continue with nebulizers. There was no significant wheezing so we will avoid systemic steroids. 4. Unresponsiveness likely secondary to sepsis, metabolic encephalopathy, acute respiratory failure with hypercapnia. 5. Coronary artery disease, history of CABG. No signs of ischemia. 6. Atrial fibrillation, will control heart rate. We will restart anticoagulation tomorrow. 7. Status post recent total right hip arthroplasty. Incisions are well healing. 8. Renal function is adequate. We'll continue with hydration. 9. Patient is full code. I had an extensive conversation with patient's . I updated about patient's clinical condition and further management plan. I spent totally 45 minutes of critical care time evaluating and managing this patient. Documented By: Bill Tavarez Acute respiratory failure due to pneumonia with intubation History of Present Illness 76 year old male with a PMH of afib, HTN, HLD, CHF, COPD (2L of O2 at home) and T2 DM who presented to the ED on 12/06 with respiratory failure and syncope History from the is the following. Patient had been rehabilitating in [facility] after having a right hip/pelvis fracture and repair at [facility]. This surgery was done on November 08. While at rehab at [facility] he had developed shortness of breath and a cough. He was subsequently found to have a pneumonia on CXR. He was being treated with Augmentin orally. The patient was getting worse and wanted to sign out AMA. He signed out AMA from [facility]. He therefore had his oxygen removed and he walked out to his car. At this time he had been short of breath but was adamant on going home. He was wheel-chaired out to his care where his picked him up. He got into the car and as his was driving she noticed that he slumped over in the car next to her. His upper body was not moving and he was not responding to her. She immediately pulled over and called 911. She said EMS came and started giving him supplemental oxygen and brought him to [facility]. At [facility] he was intubated by the ED physician, blood cultures were taken, labs were drawn and the patient was started on broad spectrum antibiotics as well as IV fluids. The telegraph service rater was contacted for further management Radiological studies done included a Head CT which was negative for infarction, Chest CTA which was negative for PE, but did show patchy bilateral infiltrates and CXR which showed patchy bilateral infiltrates. EKG showed Afib with rvr, but no ischaemic changes Relevant labs included the following: troponin negative, WBC wnl, INR 1.6, Sodium 126, Lactic acid 2.7, LFT's elevated and ABG showed a pH 7.25, pC02 80, p02 173 and HC)3 35 Patient was then transferred to the ED Patients was spoken to and she said that the patient is a full code and would want CPR if needed Past Medical/Surgical History CAD HLD HTN KS and stent placement COPD T2DM SANDOR AFIB Cataract surgery Dental implant Family History Cancer FHx: CAD (brothers) Hypertension Kidney disease Social History Smoking Status: Former Smoker (used a pipe and smoke 4 pack a week) Alcohol Use: none Drug Use: none Marital Status: Housing Status: lives with significant other Occupation Status: retired Allergies Coded Allergies: No Known Allergies (Verified , 12/06/16) Home Medications Scheduled Amiodarone Hcl (Cordarone), 1 TAB PO DAILY Aspirin (Aspirin Ec), 81 MG PO DAILY Cyanocobalamin (Vitamin B12 100 Mcg), 100 MCG PO DAILY Diltiazem Hcl Coated Beads (Diltiazem Hcl Er), 360 MG PO DAILY Fluticasone Prop/Salmeterol (Advair Diskus 250/50 60 Dose), 1 PUFF INH BID Fluticasone Propionate (Nasal) (Allergy Nasal [place] 24 Ho), 2 SPRAY NA DAILY Furosemide (Lasix), 2 TAB PO QAM Furosemide (Lasix), 1 TAB PO QDD Ipratropium-Albuterol (Duoneb), 1 TREATMENT INH Q4H Latanoprost (Xalatan 0.005% Oph Fannie), 1 DROPS OPL HS Metoprolol Tartrate (Lopressor), 100 MG PO BID Omeprazole (Prilosec), 20 MG PO BID Potassium Chloride (Micro-K Ext Rel), 1 TAB PO BID Rivaroxaban (Xarelto), 1 TAB PO HS Simvastatin (Zocor), 10 MG PO QPM Scheduled PRN Oxycodone Hcl (Oxycodone Hcl), 1 CAP PO Q12 PRN for Pain Sennosides-Docusate Sodium (Senokot S), 1 TAB PO QDL PRN for Consult Current Inpatient Medications Current Inpatient Medications Medications (Trade) Dose Ordered Sig/Janee Route Start Time Stop Time Status Last Admin Dose Admin Ioversol (Optiray 320) 125 ml UD PRN IV 12/06/16 12:00 12/10/16 11:59 Fentanyl Citrate 250 ml @ 0 mls/hr Q0M PRN IV 12/06/16 12:15 12/20/16 12:14 12/06/16 13:49 10 MLS/HR Enoxaparin Sodium (Lovenox Inj) 40 mg Q24H SQ 12/06/16 16:00 01/05/17 15:59 Sodium Chloride 1,000 ml @ 125 mls/hr Q8H IV 12/06/16 14:00 01/05/17 13:59 Insulin Aspart (novoLOG ASPART) SLIDING SCALE If C... ACHS SC 12/06/16 16:00 01/05/17 15:59 Glucose (Glucose 40% Gel) 15-30 GRAMS 15 GRAMS... UD PRN PO 12/06/16 14:45 01/05/17 14:44 Glucose (Glucose Chew Tab) 4-8 Tablets 4 Tabl... UD PRN PO 12/06/16 14:45 01/05/17 14:44 Dextrose (Dextrose 50% 50ML Syringe) 25-50ML OF 50% DW IV FOR... UD PRN IV 12/06/16 14:45 01/05/17 14:44 Glucagon (Glucagon Inj) 1 mg UD PRN SQ 12/06/16 14:45 01/05/17 14:44 Review of Systems unable to obtain ROS as patient is sedated and intubated Physical Exam Date Time Temp Pulse Resp B/P (MAP) Pulse Ox O2 Delivery O2 Flow Rate FiO2 12/06/16 15:19 60 12/06/16 15:07 37.7 90 22 106/60 100 Mechanical Ventilator 60 12/06/16 14:48 84 22 92/55 95 Mechanical Ventilator 15.0 60 12/06/16 14:40 88 22 94/56 100 Mechanical Ventilator 15.0 60 12/06/16 14:31 85 22 95/57 100 Mechanical Ventilator 12/06/16 14:26 87 22 99/53 100 Room Air 12/06/16 14:21 89 22 97/61 100 Mechanical Ventilator 12/06/16 14:15 92 22 108/63 100 Mechanical Ventilator 12/06/16 14:10 82 22 100/61 99 Mechanical Ventilator 12/06/16 14:06 81 22 97/64 98 Mechanical Ventilator 12/06/16 14:01 96 22 85/48 99 Mechanical Ventilator 15.0 60 12/06/16 13:57 86 22 97/63 98 Mechanical Ventilator 15.0 60 12/06/16 13:52 90 22 93/55 100 Mechanical Ventilator 15.0 60 12/06/16 13:43 80 22 108/70 100 Mechanical Ventilator 15.0 60 12/06/16 13:30 93 22 101/66 99 Mechanical Ventilator 15.0 60 12/06/16 13:22 101 22 114/61 96 Mechanical Ventilator 15.0 60 12/06/16 13:06 96 22 103/60 94 Mechanical Ventilator 15.0 60 12/06/16 13:05 110 12/06/16 12:51 102 22 118/70 99 Mechanical Ventilator 15.0 60 12/06/16 12:23 107 21 125/97 92 Mechanical Ventilator 15.0 60 12/06/16 12:15 92 22 86/56 97 Mechanical Ventilator 15.0 60 12/06/16 12:10 101 17 86/54 98 Mechanical Ventilator 15.0 60 12/06/16 12:10 60 12/06/16 12:07 99 10 81/51 98 Mechanical Ventilator 15.0 60 12/06/16 12:02 108 22 92/56 99 Mechanical Ventilator 15.0 60 12/06/16 12:00 108 22 105/69 98 Mechanical Ventilator 15.0 60 12/06/16 11:53 110 16 115/68 96 Mechanical Ventilator 15.0 100 12/06/16 11:49 112 20 126/88 100 Mechanical Ventilator 15.0 100 12/06/16 11:36 120 22 146/88 99 Ambu-Bag 15.0 12/06/16 11:31 120 22 87 Ambu-Bag 15.0 12/06/16 11:25 37.2 108 38 152/74 92 Nebulizer 6.0 12/06/16 11:22 115 12/06/16 11:15 85 General appearance: +Obese. Well-developed, well-nourished, no apparent distress Head: Normocephalic, atraumatic Eyes: +Exam limited due to pt condition. ENT: patient with endotracheal tube in place Neck: Supple, no JVD, trachea midline Respiratory/Chest: decreased breath sounds at the bases bilaterally, bilateral crackles at the bases Cardiovascular: irregular rate and rhythm, no murmurs heard Abdomen/GI: Normal bowel sounds, non-tender, soft Extremities/Musculoskeletal: +2 pitting edema worse on the R than the left side , weak peripheral pulses, cap refill<3 seconds Skin: Normal color, warm/dry, no rash Laboratory Results Last 24 Hours Test 12/06/16 11:42 12/06/16 11:52 12/06/16 11:53 12/06/16 11:55 Bedside Hemoglobin 10.9 g/dl Bedside Hematocrit 32 % Bedside Sodium 126 mEq/L Bedside Potassium 5.8 mEq/L Bedside Chloride 85 mEq/L Bedside Total CO2 35 mEq/l Anion Gap 12.0 mmol/L Bedside Blood Urea Nitrogen 38 mg/dl Bedside Creatinine 1.4 mg/dl Bedside Glucose (other) 151 mg/dl Bedside Ionized Calcium (Cara) 1.13 mmol/l Bedside Blood Gas pH (LAB) 7.25 Bedside Blood Gas pCO2 (LAB) 80 mmHg Bedside Blood Gas pO2 (LAB) 173 mmHg Bedside Blood Gas HCO3 (LAB) 35 meq/L Bedside Blood Gas Total CO2 38 mEq/l Bedside Blood Gas Base Excess (LAB) 8.0 meq/L Bedside Blood Gas O2 Saturation 99.0 % White Blood Count 7.41 K/uL Red Blood Count 3.48 M/uL Hemoglobin 9.8 g/dL Hematocrit 30.6 % Mean Corpuscular Volume 87.9 fL Mean Corpuscular Hemoglobin 28.2 pg Mean Corpuscular Hemoglobin Concent 32.0 g/dl Platelet Count 260 K/uL Mean Platelet Volume 10.5 fL Neutrophils (%) (Auto) 71.2 % Lymphocytes (%) (Auto) 8.1 % Monocytes (%) (Auto) 18.6 % Eosinophils (%) (Auto) 1.9 % Basophils (%) (Auto) 0.1 % Neutrophils # (Auto) 5.27 K/uL Lymphocytes # (Auto) 0.60 K/uL Monocytes # (Auto) 1.38 K/uL Eosinophils # (Auto) 0.14 K/uL Basophils # (Auto) 0.01 K/uL RDW Standard Deviation 47.9 fL RDW Coefficient of Variation 14.9 % Immature Granulocyte % (Auto) 0.1 % Immature Granulocyte # (Auto) 0.01 K/uL Nucleated RBC Absolute Count (auto) 0.06 K/uL Nucleated Red Blood Cells % 0.8 % Polychromasia 1+ Prothrombin Time 16.7 SECONDS Prothromb Time International Ratio 1.5 Activated Partial Thromboplast Time 35.1 SECONDS Partial Thromboplastin Ratio 1.4 Lactic Acid Level 2.7 mmol/L Test 12/06/16 11:57 12/06/16 12:15 12/06/16 13:56 12/06/16 16:00 Sodium Level 126 mmol/L Potassium Level 5.1 mmol/L Chloride Level 88 mmol/L Carbon Dioxide Level 34 mmol/L Anion Gap 4.0 mmol/L Blood Urea Nitrogen 27 mg/dl Creatinine 1.29 mg/dl Estimated GFR () 61.1 Estimated GFR (Non- 52.8 BUN/Creatinine Ratio 20.8 Random Glucose 145 mg/dl Calcium Level 8.6 mg/dl Magnesium Level 2.3 mg/dl Total Bilirubin 1.2 mg/dl Direct Bilirubin 0.8 mg/dl Aspartate Amino Transf (AST/SGOT) 39 U/L Alanine Aminotransferase (ALT/SGPT) 47 U/L Alkaline Phosphatase 147 U/L Troponin I < 0.015 ng/ml 0.016 ng/ml Pro-B-Type Natriuretic Peptide 8716 pg/ml Total Protein 7.5 gm/dl Albumin 2.6 gm/dl Urine Color DK YELLOW Urine Appearance CLOUDY Urine pH 5.0 Urine Specific [place] 1.021 Urine Protein 2+ Urine Glucose (UA) NEG Urine Ketones NEG Urine Occult Blood NEG Urine Nitrite NEG Urine Bilirubin NEG Urine Urobilinogen POS Urine Leukocyte Esterase NEG Urine WBC (Auto) 5-10 /hpf Urine RBC (Auto) 5-10 /hpf Urine Hyaline Casts (Auto) 1-5 /lpf Urine Epithelial Cells (Auto) >30 /lpf Urine Bacteria (Auto) NEG Urine Renal Epithelial Cells 0-5 /lpf Urine Crystals AMORPHOUS SEDIMENT Urine Pathogenic Casts 0-3 GRANULAR CASTS /lpf Assessment & Plan 76 year old male with PMH of afib, HTN, HLD, CAD, CHF, COPD (2L at home) and T2DM who presented to the ED on 12/06 with respiratory failure and syncope. Patient found with bilateral pneumonia on imaging with PC02 of 80. Likely cause of syncope was hypoxia and hypercapnic respiratory failure due to bilateral hospital acquired pneumonia. CAM patient sedated with fentanyl 75mcg/hr ativan 2mg q2 prn agitation CT head without any acute changes RESP acute hypercapnic respiratory failure abg ph=7.25, pc02=80, f75=751 and Hc03=35 tracheal intubation (bpm 22, tidal volume 500, peep 8 and fi02 of 60) bilateral hospital acquired pneumonia, bilateral infiltrates on CT and CXR continue IV antibiotics with vanc and zosyn NS at 125cc/hr repeat lactic acid blood cultures pending COPD on 2L at home duonebs q4 and advair 1 puff inh bid CARDIAC history of KS with stent placement first troponin negative, check q8x3, EKG without ST changes continues aspirin 81mg PO and simvastatin 10mg PO qd echo ordered monitor I/O's Afib with RVR, rate controlled continue diltiazem 360mg PO qd, lopressor 100mg bid, continue amiodarone and xarelto 20mg qd for anticoagulation (enoxaparin while NPO) INR 1.5 Mag 2.3 continue to follow RENAL IV fluids at 125cc/hr creatinine 1.29 and GFR 52.8 monitor 1/O's GI elevated LFT's and elevated INR likely due to sepsis, could also be NAFD continue to monitor NPO while sedated, heart healthy diet when off ventilator ID bilateral hospital acquired pneumonia continue zosyn and vanc blood culture pending lactic acid elevated at 2.7 order procalcitonin continue to monitor wcc and fever curve ENDO T2 DM last HbA1c 6.2 on 10/07/16 order ISS check bsg qac and qhs DVT prophylaxis 40mg enoxaparin q24 while NPO, resume xarelto when able to ALPHONSO hose and SCD's FULL CODE
[2016-12-06] MEDS: FENTANYL 1250MCG/250ML NSS 250 ML IV SCH (18:18)
[2016-12-06] MEDS: SODIUM CHLORIDE 0.9% 1000ML 1,000 ML IV SCH (18:18)
[2016-12-06] MEDS: LORAZEPAM 2 MG/ML 1 ML VIAL IV PRN ×2 (19:22→21:53)
--- NOTE | 2016-12-06 20:33 | Procedure Note ---
Procedure Note Procedure Date Dec 06, 2016. (Kaleb Godwin PA-C) Procedure Description Comments: I was present for the entire time of procedure. Chest x-ray without pneumothorax. (Linas. Tavarez MD) Central Line Procedure time out: patient ID confirmed, sterile procedure used Consent obtained: written Time of procedure: 19:30 Performed by: attending, physician game engineer Indications: poor venous access, long-term access Prep: chlorhexadine prep, sterile drape, sterile procedures used Anesthesia: local injection, lidocaine 1% without epi Volume anesthetic (ml's): 3 Central line lumen: triple Central line location: internal jugular (L) Additional details: percutaneous placement, ultrasound guidance, Selinger technique used CXR: appropriate position Complications: other (unable to pass wire - line attempt aborted.) Patient tolerated procedure: well Post-procedure vital signs: reviewed and stable Comments: Procedure: Central Line Placement Attending: Dr. Tavarez APC: Kaleb Godwin PA-C Indication: Central Drug Administration, Poor Venous Access, Multiple Lab Draws Necessary, etc. Anesthesia: Lidocaine 1% Consent was obtained by my attending physician. A time-out was completed verifying correct patient, procedure, site, positioning , and implans(s) or special equipment if applicable. Patients LEFT Sided Neck was cleansed and draped in the typical sterile fashion using Chloraprep. The Internal Jugular Vein and Carotid Artery were identified using ultrasound. The superficial tissue was anesthetized using 3 cc of 1% lidocaine without epinephrine under direct visualization with the ultrasound. After adequate anesthetization was achieved, the Internal Jugular vein was cannulated under direct ultrasound guidance using an introducer needle on a syringe. Good venous blood return was maintained prior to removal of syringe from introducer needle. Using Seldinger Technique, a guide wire was advanced through the introducer needle. Resistance was met between 10-15 cm. Attempt was made by my attending physician without success. Patient tolerated procedure well. No complications were met. Post procedure x-ray was completed, placement was appropriate and no pneumothorax was noted. Images obtained are saved for permanent record Procedural Ultrasound Guidance: Procedure Date: 12/06/2016 Indication: LEFT IJ Placement Attending: Dr. Tavarez APC: Kaleb Godwin PA-C Artery AND Vein visualized: YES Compressible Vein: YES Images obtained are saved for permanent record (Kaleb Godwin PA-C)
--- NOTE | 2016-12-06 20:34 | DIAGNOSTIC IMAGING REPORT ---
CHEST ONE VIEW PORTABLE HISTORY: 76 years-old Male post LEFT IJ attempt respiratory failure COMPARISON: Chest radiograph 12/06/2016 TECHNIQUE: Portable upright AP view of the chest FINDINGS: Endotracheal tube terminates 3.0 cm superior to the bisi overlying the midline. No central venous catheter is seen. Multiple telemetry leads overlie the chest. Prior median sternotomy. Moderate enlargement of the cardiac silhouette with atherosclerosis of the aorta. No pneumothorax. There are small bilateral pleural effusions. Patchy multifocal mixed interstitial and alveolar opacities are again seen. Lungs are mildly hypoinflated. No significant change from comparison. Bones are grossly intact. IMPRESSION: 1. No pneumothorax identified. 2. Cardiomegaly with persistent multifocal bilateral mixed interstitial and alveolar opacities suggesting pulmonary edema or pneumonia. 3. Persistent trace pleural effusions. The above report was generated using voice recognition software. It may contain grammatical, syntax or spelling errors. Electronically signed by: Gio Allen M.D. 12/06/2016 8:32 PM Dictated Date/Time: 12/06/2016 8:29 PM
[2016-12-06] MEDS ORDERED: NURSING VERBAL MED ORDER ONE (20:45)
[2016-12-06 21:36] LABS: CKMB/CK RATIO 2.3 (0-3.0)
[2016-12-06] MEDS ORDERED: PIPERACILL/TAZOBAC IV 4.5 GM in DEXTROSE 5% 100ML 100 ML IV SCH (22:45)
[2016-12-06] MEDS ORDERED: PIPERACILL/TAZOBAC IV 4.5 GM in DEXTROSE 5% 100ML IV ONE (23:30)
[2016-12-06] MEDS: INSULIN ASPART 100 UNITS/ML 3 ML PEN SC SCH (23:56)
[2016-12-07] VITALS (21 sets, daily range): BP systolic 102–125; BP diastolic 56–78; PULSE 94–129; TEMP 37.1–37.7; O2SAT 93–99
[2016-12-07] MEDS ORDERED: DOCUSATE SODIUM/SENNA 50/8.6MG TAB PO PRN (00:30)
[2016-12-07] MEDS: SODIUM CHLORIDE 0.9% 1000ML 1,000 ML IV SCH ×3 (00:31→13:48)
[2016-12-07] MEDS: METOPROLOL TARTRATE 100 MG TAB PO SCH ×3 (01:26→20:13)
[2016-12-07] MEDS ORDERED: VANCOMYCIN CONSULT ACTIVE PRN (01:30)
[2016-12-07] MEDS ORDERED: PIPERACILL/TAZOBAC CONSULT ACTIVE PRN (01:30)
[2016-12-07] MEDS: FENTANYL 1250MCG/250ML NSS 250 ML IV SCH (02:43)
[2016-12-07] MEDS: PIPERACILL/TAZOBAC IV 4.5 GM in DEXTROSE 5% 100ML IV SCH ×3 (03:39→20:11)
[2016-12-07] MEDS: VANCOMYCIN INJ 1,750 MG in SODIUM CHLORIDE 0.9% 500ML 500 ML IV SCH ×2 (03:39→20:11)
[2016-12-07] MEDS: ALBUTEROL HFA 8 GM INHALER INH SCH ×7 (03:50→23:10)
[2016-12-07] MEDS: IPRATROPIUM BROMIDE HFA INHALER INH SCH ×7 (03:50→23:10)
[2016-12-07] MEDS ORDERED: VANCOMYCIN INJ 1,750 MG in SODIUM CHLORIDE 0.9% 250ML 250 ML IV SCH (04:00)
[2016-12-07] MEDS ORDERED: ALBUT/IPRATROP 3MG/0.5MG NEB 3 ML VIAL INH SCH (04:00)
[2016-12-07 04:08] LABS: BASO % 0.3 %; BASO ABS # 0.01 K/uL (0-0.2); EOS % 0.8 %; HEMATOCRIT 24.1 % (42-52); IG% 0.5 %; LYMPH % 7.5 %; MEAN CELL VOLUME 87.3 fL (80-100); MEAN CORPUSCULAR HEMOGLOBIN 27.5 pg (25-34); MEAN CORPUSCULAR HGB CONC 31.5 g/dl (32-36); MEAN PLATELET VOLUME 9.6 fL (7.4-10.4); MONO % 12.8 %; NEUT % 78.1 %; PLATELET COUNT 166 K/uL (130-400); RED BLOOD COUNT 2.76 M/uL (4.7-6.1)
[2016-12-07 04:27] LABS: COMPLETE YES
[2016-12-07 04:32] LABS: ALT/SGPT 32 U/L (12-78); AST/SGOT 19 U/L (15-37); BLOOD UREA NITROGEN 22 mg/dl (7-18); CALCIUM 7.7 mg/dl (8.5-10.1); CARBON DIOXIDE 31 mmol/L (21-32); CHLORIDE 95 mmol/L (98-107); CREATININE 1.01 mg/dl (0.60-1.40); GLUCOSE 87 mg/dl (70-99); POTASSIUM 4.2 mmol/L (3.5-5.1); SODIUM 132 mmol/L (136-145)
[2016-12-07 04:50] LABS: ALKALINE PHOSPHATASE 98 U/L (45-117); CKMB/CK RATIO 2.4 (0-3.0)
[2016-12-07] MEDS: INSULIN ASPART 100 UNITS/ML 3 ML PEN SC SCH ×3 (06:00→17:44)
[2016-12-07 06:26] LABS: ISTAT ALLEN TEST Pass; ISTAT ARTERIAL BLOOD GAS HCO3 31 meq/L (19-24); ISTAT ARTERIAL BLOOD GAS PCO2 49 mmHg (35-46); ISTAT ARTERIAL BLOOD GAS PO2 78 mmHg (80-95); ISTAT ARTERIAL BLOOD GAS pH 7.42 (7.35-7.45); ISTAT CARBON DIOXIDE 33 mEq/l (24-31); ISTAT DELIVERY SYSTEM Ventilator; ISTAT FIO2 40 %; ISTAT PEEP 5; ISTAT RATE 16; ISTAT SITE R Radial; VE 8; Vt 500
[2016-12-07] MEDS ORDERED: DILTIAZEM HCL (TIAzac) 180 MG CAPCR PO SCH (09:00)
[2016-12-07] MEDS: POTASSIUM CHLORIDE 10 MEQ TABCR PO SCH ×2 (09:00→20:12)
[2016-12-07] MEDS ORDERED: ASPIRIN 81 MG ECTAB PO SCH (09:00)
[2016-12-07] MEDS: FUROSEMIDE 40 MG TAB PO SCH ×2 (09:15→15:30)
[2016-12-07] MEDS: FLUTICASONE PROPIONATE NA SPR 16 GM BTL SCH (09:16)
[2016-12-07] MEDS: AMIODARONE 200 MG TAB PO SCH (09:16)
[2016-12-07] MEDS: CYANOCOBALAMIN 100 MCG TAB (VIT B-12) PO SCH (09:16)
[2016-12-07] MEDS: PANTOprazole INJ 40 MG in SYRINGE 0 ML IV SCH (09:17)
[2016-12-07] MEDS: DILTIAZEM HCL 60 MG TAB PO SCH ×3 (10:07→22:12)
--- NOTE | 2016-12-07 10:16 | ECHOCARDIOGRAM REPORT ---
*NOTICE TO RECEIVING DEMOCRAT AGENCY This information is strictly Confidential and protected under [place] law. [place] law prohibits you from making any further disclosure of this information unless further disclosure is expressly permitted by the written consent of the person to whom it pertains or is authorized by law. A general authorization for the release of medical or other information is not sufficient for this purpose. Hospital accepts no responsibility if the information is made available to any other person, INCLUDING THE PATIENT. Interpretation Summary * Name: JOHN ACUÑA V Study Date: 12/07/2016 07:59 AM BP: 113/68 mmHg * Patient Location: .MSICU\S\E106\S\1 HR: 121 * : 1940 (M/d/yyyy) Gender: Male * Age: 76 yrs Ethnicity: CA Weight: 249 lb * Ordering Physician: Cecelia Lanier * Performed By: Francheska Andrews RDCS * * Reason For Study: SYNCOPE, A-FIB WITH RVR * -- Conclusions -- * 1. Normal left ventricular size and systolic function. EF 60-65%. No regional wall motion abnormalities. Mild to moderate concentric left ventricular hypertrophy. * 2. Moderately dilated right ventricle with mildly reduced systolic function. * 3. Moderate right atrial dilation. Mild left atrial dilation. * 4. Mild mitral regurgitation. * 5. Sclerotic aortic valve without significant stenosis. * 6. Mildly elevated right ventricular systolic pressure; estimated RVSP 43 mmHg. * 7. Technically difficult study, enhanced with IV Definity. * 8. Atrial fibrillation. * 9. Compared to prior study on 05/27/2015, RVSP is now mildly elevated. Procedure Details * A complete two-dimensional transthoracic echocardiogram was performed (2D, M-mode, Doppler and color flow Doppler). * The study was technically difficult. * There were technical limitations due to patient'ssupine positioning while on mechanical ventilation * A contrast injection of Definity was performed to improve assessment of LV function. * Contrast was injected into an intravenous site in the central line. * One vial of Definity ultrasound contrast was diluted in normal saline to a total volume of 10 ml. A total of '3' ml of solution was administered during imaging. * Lot # [id number] of Definity utilized for procedure. * Expiration date 01/23. * The attending nurse who injected the contrast agent was DAVID ROGER RN. Left Ventricle * Normal left ventricular size and systolic function. EF 60-65%. No regional wall motion abnormalities. Mild to moderate concentric left ventricular hypertrophy. Right Ventricle * Moderately dilated right ventricle with mildly reduced systolic function. * The right ventricular systolic function is reduced as assessed by tricuspid annular plane systolic excursion (TAPSE) (TAPSE <1.6 cm). Atria * The left atrium is mildly dilated. * The right atrium is moderately dilated. Mitral Valve * The mitral valve is grossly normal. * There is no mitral valve stenosis. * There is mild mitral regurgitation. Tricuspid Valve * The tricuspid valve is not well visualized, but is grossly normal. * There is no tricuspid stenosis. * There is mild tricuspid regurgitation. Aortic Valve * The aortic valve is not well visualized. * Sclerotic aortic valve. * No hemodynamically significant valvular aortic stenosis. * There is no significant aortic regurgitation. Pulmonic Valve * The pulmonary valve is inadequately visualized, but the Doppler data is adequate for interpretation. * There is no pulmonic valvular stenosis. * There is no significant pulmonary regurgitation. Great Vessels * The aortic root is not well visualized. Pericardium/Pleural * There is no pericardial effusion. Great Vessels * Mildly dilated IVC. MMode 2D Measurements and Calculations IVSd 1.4 cm IVSs 1.6 cm LVIDd 4.2 cm LVIDs 2.6 cm LVPWd 1.2 cm LVPWs 2.1 cm IVS/LVPW 1.1 FS 38.9 % EDV(Teich) 77.9 ml ESV(Teich) 23.6 ml EF(Teich) 69.7 % EDV(cubed) 73.3 ml ESV(cubed) 16.7 ml EF(cubed) 77.2 % % IVS thick 17.7 % % LVPW thick 70.2 % LV mass(C)d 197.8 grams LV mass(C)s 188.7 grams SV(Teich) 54.3 ml SV(cubed) 56.6 ml ACS 0.77 cm asc Aorta Diam 3.0 cm LVOT diam 2.0 cm LVOT area 3.0 cm\S\2 LVAd ap4 28.5 cm\S\2 LVLd ap4 7.8 cm EDV(MOD-sp4) 83.4 ml EDV(sp4-el) 88.3 ml LVAs ap4 14.8 cm\S\2 LVLs ap4 6.2 cm ESV(MOD-sp4) 29.2 ml ESV(sp4-el) 29.9 ml EF(MOD-sp4) 64.9 % EF(sp4-el) 66.1 % LVAd ap2 34.3 cm\S\2 LVLd ap2 8.2 cm EDV(MOD-sp2) 120.0 ml EDV(sp2-el) 122.2 ml LVAs ap2 19.5 cm\S\2 LVLs ap2 7.4 cm ESV(MOD-sp2) 41.3 ml ESV(sp2-el) 43.5 ml EF(MOD-sp2) 65.6 % EF(sp2-el) 64.4 % LVLd %diff 4.6 % EDV(MOD-bp) 99.5 ml LVLs %diff 15.9 % ESV(MOD-bp) 37.9 ml EF(MOD-bp) 61.9 % SV(MOD-sp4) 54.1 ml SV(MOD-sp2) 78.7 ml SV(MOD-bp) 61.6 ml SV(sp4-el) 58.4 ml SV(sp2-el) 78.7 ml Doppler Measurements and Calculations MV E max francoise 102.0 cm/sec MV dec time 0.17 sec Ao V2 max 106.8 cm/sec Ao max PG 4.6 mmHg Ao max PG (full) 0.41 mmHg LUIS(V,A) 2.9 cm\S\2 LUIS(V,D) 2.9 cm\S\2 LV V1 max PG 4.2 mmHg LV V1 max 101.8 cm/sec MR max francoise 386.5 cm/sec MR max PG 59.8 mmHg TV E max francoise 60.1 cm/sec PA V2 max 110.5 cm/sec PA max PG 4.9 mmHg TR max francoise 294.0 cm/sec RVSP(TR) 42.6 mmHg RAP systole 8.0 mmHg
--- NOTE | 2016-12-07 10:22 | Clinical Documentation Query ---
CLINICAL DOCUMENTATION QUERY 76 year old male who presents to the Emergency Room with complaints of persistent respiratory distress In your clinical opinion is this patient being managed for: ( x ) Suspected MRSA or gram negative pneumonia in the setting of recent inpatient hospitalization now requiring treatment with a combination of IV Levofloxacin, Levaquin and Vancomycin ( ) Not Agree ( ) Other explanation of clinical findings (Please Explain) ( ) Unable to determine (Please Define) ( ) Need to Discuss The medical record reflects the following clinical findings, treatment, and risk factors. Clinical Indicators: Sepsis & respiratory failure 2/2 HCAP per medical record. Treatment: IV Vanco, IV Zosyn, IV Levofloxacin, Mechanical ventilation Risk Factors: recent healthcare facility contacts Please clarify and document your clinical opinion in the progress notes and discharge summary. Terms such as "probable", "suspected", "likely", "questionable", "possible", or "still to be ruled out" are acceptable. IF IN AGREEMENT, YOU MUST DOCUMENT ABOVE DIAGNOSTIC STATEMENT IN DAILY PROGRESS NOTES AND DISCHARGE SUMMARY. This document is not part of the patient's record. Thank You, Anthony Ospina, JACE [phone]
[2016-12-07] MEDS: ASPIRIN 81 MG CHEW PO SCH (10:39)
--- NOTE | 2016-12-07 10:48 | DIAGNOSTIC IMAGING REPORT ---
SINGLE VIEW CHEST CLINICAL HISTORY: PICC placement. FINDINGS: An AP, portable, upright chest radiograph is compared to chest x-ray and chest CT dated 12/06/2016. The examination is degraded by portable technique, motion artifact, apical lordotic positioning, and patient rotation. A right PICC line has been placed. The tip of the catheter projects over the left atrium. Endotracheal and enteric tubes are again noted. The patient is status post midline sternotomy. The cardiomediastinal heart is enlarged and there is atherosclerotic calcification of the thoracic aorta. There is pulmonary vascular congestion. There are small layering pleural effusions with bibasilar consolidation. Airspace opacities are also present in the upper lobes. No pneumothorax is seen. The skeletal structures are osteopenic. The bony thorax is grossly intact. IMPRESSION: 1. A right PICC line has been placed. The tip of the catheter projects over the right atrium. This should be pulled back approximately 4 cm. 2. Cardiomegaly with evidence of congestive failure. 3. Perihilar/upper lobe airspace opacities likely represent interstitial edema and/or multifocal pneumonia. Clinical correlation will be required. 4. Layering pleural effusions with bibasilar consolidation. Electronically signed by: Laci Steele M.D. 12/07/2016 10:46 AM Dictated Date/Time: 12/07/2016 10:44 AM
--- NOTE | 2016-12-07 11:50 | DIAGNOSTIC IMAGING REPORT ---
SINGLE VIEW CHEST CLINICAL HISTORY: PICC repositioning. FINDINGS: An AP, portable, upright chest radiograph is compared to chest x-ray performed earlier the same day 12/07/2016 and correlated with chest CT dated 12/06/2016. The examination is degraded by portable technique, motion artifact, apical lordotic positioning, and patient rotation. A right PICC line has been repositioned. The tip projects at the cavoatrial junction. Endotracheal and enteric tubes are again noted. The patient is status post midline sternotomy. The cardiomediastinal heart is enlarged and there is atherosclerotic calcification of the thoracic aorta. There is pulmonary vascular congestion. There are small layering pleural effusions with bibasilar consolidation. Airspace opacities are also present in the upper lobes. No pneumothorax is seen. The skeletal structures are osteopenic. The bony thorax is grossly intact. IMPRESSION: 1. Severely motion degraded examination. 2. A right PICC line has been repositioned. The tip of the catheter projects at the cavoatrial junction. 3. Cardiomegaly with evidence of congestive failure. 4. Perihilar/upper lobe airspace opacities likely represent interstitial edema and/or multifocal pneumonia. Clinical correlation will be required. 5. Layering pleural effusions with bibasilar consolidation. Electronically signed by: Laci Steele M.D. 12/07/2016 11:49 AM Dictated Date/Time: 12/07/2016 11:47 AM
[2016-12-07] MEDS: LEVOFLOXACIN / D5W 750 MG in PREMIXED IN D5W 150 ML IV SCH (13:47)
--- NOTE | 2016-12-07 14:59 | Critical Care Progress Note ---
Critical Care Progress Note Date of Service Dec 07, 2016. Attending Dr. Tavarez Subjective In summary, the patient is a 76 year old gentleman with history of atrial fibrillation on Xarelto, coronary artery disease, status post CABG, hypertension, hyperlipidemia, CHF, COPD on 2 L of oxygen, SANDOR on CPAP at night who was brought to [facility] for unresponsiveness while signing AMA from rehabilitation facility. As per his , patient suffered a right acetabular fracture on 11/05. He underwent total hip arthroplasty at [facility] on 11/08/2016. Postoperatively patient was transferred to [facility] for rehabilitation. Over there, patient was diagnosed with pneumonia and treated with Augmentin. Patient required oxygen per nasal cannula. He was somewhat confused and short of breath while signing [facility] [employer]ICAL [employer]ICE. Patient was transferred in the wheelchair to his car off oxygen. He managed to get into the vehicle and immediately slumped over and became unresponsive. He was no witnessed seizure. Ambulance was called, patient was brought to [facility]. She required to be intubated as he was hypoxic and was not able to protect his airways adequately. Patient was transferred critically ill to surgical intensive care unit for further evaluation. Uneventful night. No fever, chills, chest pain, abdominal pain or diarrhea. Objective General appearance: Morbidly obese, Well-developed, well-nourished, no apparent distress while on sedation Head: Normocephalic, atraumatic Eyes: Pupils were round and reactive to light ENT: Endotracheal tube is in situ Neck: Supple, no JVD, trachea midline Respiratory/Chest: decreased breath sounds at the bases bilaterally, few crackles at the left base, scattered rhonchi. Cardiovascular: irregular rate and rhythm, no murmurs heard, normal S1-S2 Abdomen/GI: Normal bowel sounds, non-tender, soft, bowel sounds present Extremities/Musculoskeletal: +2 pitting edema worse on the R than the left side , weak peripheral pulses, cap refill<3 seconds Skin: Normal color, warm/dry, no rash Assessment & Plan 1. Acute respiratory failure likely multifactorial secondary to pneumonia and COPD exacerbation. Patient failed CPAP and pressure support weaning. We will rest him on full support, restart weaning tomorrow. 2. Pneumonia on empiric Vanco Zosyn #2. Blood cultures are negative. 3. COPD for what will continue with nebulizers. There was no significant wheezing so we will avoid systemic steroids. 4. Metabolic encephalopathy has improved, follow simple commands, moves all extremities. 5. Coronary artery disease, history of CABG. No signs of ischemia. Echocardiography revealed good left ventricular function, right ventricular cavity dilated, slightly decreased function. We will continue with aspirin and metoprolol. 6. Atrial fibrillation, heart rate is controlled with metoprolol, amiodarone and Cardizem. We will switch Cardizem extended release to instrument every 6 hours. We'll restart Xarelto for anticoagulation. 7. Status post recent total right hip arthroplasty. Incisions are well healing. 8. Renal function is adequate. Fluid balance is positive for 2 L. We'll give additional IV Lasix dose. 9. GI: We will start trickle tube feeds. 10. Patient is full code. I updated patient's about his clinical condition and further management plan. I spent totally 35 minutes of critical care time evaluating and managing this patient. [place] II Score Date Score Was Generated: Dec 07, 2016 Consults & Procedures Consultants: Critical care medicine. Procedures: Intubation on 11/06/2016. Data Medications: Current Inpatient Medications Medications (Trade) Dose Ordered Sig/Janee Route Start Time Stop Time Status Last Admin Dose Admin Ioversol (Optiray 320) 125 ml UD PRN IV 12/06/16 12:00 12/10/16 11:59 Sodium Chloride 1,000 ml @ 125 mls/hr Q8H IV 12/06/16 14:00 01/05/17 13:59 12/07/16 13:48 125 MLS/HR Glucose (Glucose 40% Gel) 15-30 GRAMS 15 GRAMS... UD PRN PO 12/06/16 14:45 01/05/17 14:44 Glucose (Glucose Chew Tab) 4-8 Tablets 4 Tabl... UD PRN PO 12/06/16 14:45 01/05/17 14:44 Dextrose (Dextrose 50% 50ML Syringe) 25-50ML OF 50% DW IV FOR... UD PRN IV 12/06/16 14:45 01/05/17 14:44 Glucagon (Glucagon Inj) 1 mg UD PRN SQ 12/06/16 14:45 01/05/17 14:44 Fentanyl Citrate 250 ml @ 15 mls/hr [id number] IV 12/06/16 17:00 11/14/17 16:59 12/07/16 02:43 15 MLS/HR Lorazepam (Ativan Inj) 2 mg Q2H PRN IV 12/06/16 17:00 01/05/17 16:59 12/06/16 21:53 2 MG Insulin Aspart (novoLOG ASPART) SLIDING SCALE If C... Q6 SC 12/07/16 00:00 01/06/17 00:00 Levofloxacin 750 mg/Prmx 150 ml @ 100 mls/hr Q24H IV 12/07/16 14:00 12/12/16 15:29 12/07/16 13:47 100 MLS/HR Piperacillin Sod/ Tazobactam Sod 4.5 gm/Dextrose 120 ml @ 30 mls/hr Q8H IV 12/07/16 04:00 12/14/16 03:59 12/07/16 11:43 30 MLS/HR Amiodarone HCl (Cordarone Tab) 200 mg DAILY PO 12/07/16 09:00 01/06/17 08:59 12/07/16 09:16 200 MG Cyanocobalamin (Vitamin B-12 Tab) 100 mcg DAILY PO 12/07/16 09:00 01/06/17 08:59 12/07/16 09:16 100 MCG Salmeterol Xinafoate/ Fluticasone (Advair Diskus 250/50 Inh) 1 puff BID INH 12/07/16 09:00 01/06/17 08:59 Fluticasone Propionate (Flonase Nasal [place]) 1 sprays DAILY NA 12/07/16 09:00 01/06/17 08:59 12/07/16 09:16 1 SPRAYS Furosemide (Lasix Tab) 40 mg QDD PO 12/07/16 16:30 01/06/17 16:29 Furosemide (Lasix Tab) 80 mg QAM PO 12/07/16 09:00 01/06/17 08:59 12/07/16 09:15 80 MG Latanoprost (Xalatan Oph Soln) 1 drops HS OPL 12/07/16 21:00 01/06/17 20:59 Metoprolol Tartrate (Lopressor Tab) 100 mg BID PO 12/07/16 09:00 01/06/17 08:59 12/07/16 10:07 100 MG Potassium Chloride (Klor-Con M10) 10 meq BID PO 12/07/16 09:00 01/06/17 08:59 Rivaroxaban (Xarelto Tab) 20 mg HS PO 12/07/16 21:00 01/06/17 20:59 Senna/Docusate Sodium (Senokot S Tab) 1 tab QDL PRN PO 12/07/16 00:30 01/06/17 00:29 Simvastatin (Zocor Tab) 10 mg QPM PO 12/07/16 21:00 01/06/17 20:59 Vancomycin HCl 1750 mg/Sodium Chloride 535 ml @ 200 mls/hr Q16H IV 12/07/16 04:00 12/14/16 03:59 12/07/16 03:39 200 MLS/HR Vancomycin HCl (Consult) 1 ea UD PRN N/A 12/07/16 01:30 01/06/17 01:29 Piperacillin Sod/ Tazobactam Sod (Consult) 1 ea UD PRN N/A 12/07/16 01:30 01/06/17 01:29 Ipratropium [place] (Atrovent Hfa Inhaler) 4 puffs Q4R INH 12/07/16 04:00 01/06/17 03:59 12/07/16 14:15 4 PUFFS Albuterol (Ventolin Hfa Inhaler) 4 puffs Q4R INH 12/07/16 04:00 01/06/17 03:59 12/07/16 14:15 4 PUFFS Pantoprazole Sodium 40 mg/ Syringe 10 ml @ 5 mls/min DAILY@0900 IV 12/07/16 09:00 01/06/17 08:59 12/07/16 09:17 5 MLS/MIN Aspirin (Aspirin Chew) 81 mg QAM PO 12/07/16 09:00 01/06/17 08:59 12/07/16 10:39 81 MG Diltiazem HCl (Cardizem Tab) 60 mg Q6H PO 12/07/16 10:00 01/06/17 09:59 12/07/16 10:07 60 MG Vital Signs: Date Time Temp Pulse Resp B/P (MAP) Pulse Ox O2 Delivery O2 Flow Rate FiO2 12/07/16 14:15 40 12/07/16 12:00 40 12/07/16 12:00 94 Mechanical Ventilator 40 12/07/16 12:00 37.2 110 17 106/74 (85) 93 Mechanical Ventilator 40 12/07/16 11:43 40 12/07/16 11:40 40 12/07/16 10:00 129 17 115/56 (75) 97 Mechanical Ventilator 40 12/07/16 08:00 37.1 126 16 118/71 (87) 96 Mechanical Ventilator 40 12/07/16 08:00 Mechanical Ventilator 40 12/07/16 08:00 40 12/07/16 08:00 94 Mechanical Ventilator 40 12/07/16 07:25 40 12/07/16 06:01 121 16 113/68 (79) 96 12/07/16 06:00 37.5 12/07/16 05:37 40 12/07/16 05:01 109 16 105/58 (70) 97 12/07/16 04:01 108 16 103/61 (68) 97 12/07/16 04:00 40 12/07/16 04:00 97 Mechanical Ventilator 40 12/07/16 03:50 108 18 97 Mechanical Ventilator 40 12/07/16 03:01 94 16 102/63 (85) 96 12/07/16 02:33 40 12/07/16 02:30 99 16 99 12/07/16 02:01 112 16 112/58 (70) 98 12/07/16 01:30 124 16 97 12/07/16 01:01 113 16 106/63 (71) 98 12/07/16 00:30 113 16 99 12/07/16 00:01 37.5 12/07/16 00:01 111 16 107/62 (76) 99 12/06/16 23:59 60 12/06/16 23:59 99 Mechanical Ventilator 40 12/06/16 23:50 40 12/06/16 23:45 50 12/06/16 23:31 114 16 117/62 (69) 99 12/06/16 23:01 120 16 106/66 (70) 100 12/06/16 22:31 113 16 94/59 (73) 100 12/06/16 22:00 113 16 114/59 (78) 99 12/06/16 21:31 115 17 116/73 (80) 100 12/06/16 21:01 103 13 117/56 (73) 100 12/06/16 20:59 50 12/06/16 20:57 60 12/06/16 20:31 111 16 109/66 (72) 100 12/06/16 20:01 86 16 111/64 (83) 98 12/06/16 20:00 60 12/06/16 20:00 98 Mechanical Ventilator 15.0 60 12/06/16 20:00 37.7 12/06/16 19:31 103 22 114/62 (68) 98 12/06/16 19:01 91 22 105/59 (84) 100 12/06/16 18:20 60 12/06/16 18:00 36.8 84 22 103/58 (73) 98 Mechanical Ventilator 12/06/16 16:00 36.9 88 22 96/59 (71) 98 Mechanical Ventilator 12/06/16 15:19 60 12/06/16 15:07 37.7 90 22 106/60 100 Mechanical Ventilator 60 Laboratory Results: Last 24 Hours Test 12/06/16 16:13 12/06/16 20:58 12/06/16 23:39 12/07/16 03:52 Bedside Glucose 189 mg/dl 96 mg/dl Lactic Acid Level 0.9 mmol/L Total Creatine Kinase 44 U/L 29 U/L Creatine Kinase MB 1.0 ng/ml 0.7 ng/ml Creatine Kinase MB Ratio 2.3 2.4 Troponin I 0.021 ng/ml < 0.015 ng/ml White Blood Count 4.00 K/uL Red Blood Count 2.76 M/uL Hemoglobin 7.6 g/dL Hematocrit 24.1 % Mean Corpuscular Volume 87.3 fL Mean Corpuscular Hemoglobin 27.5 pg Mean Corpuscular Hemoglobin Concent 31.5 g/dl Platelet Count 166 K/uL Mean Platelet Volume 9.6 fL Neutrophils (%) (Auto) 78.1 % Lymphocytes (%) (Auto) 7.5 % Monocytes (%) (Auto) 12.8 % Eosinophils (%) (Auto) 0.8 % Basophils (%) (Auto) 0.3 % Neutrophils # (Auto) 3.13 K/uL Lymphocytes # (Auto) 0.30 K/uL Monocytes # (Auto) 0.51 K/uL Eosinophils # (Auto) 0.03 K/uL Basophils # (Auto) 0.01 K/uL RDW Standard Deviation 47.7 fL RDW Coefficient of Variation 15.0 % Immature Granulocyte % (Auto) 0.5 % Immature Granulocyte # (Auto) 0.02 K/uL Nucleated RBC Absolute Count (auto) 0.04 K/uL Nucleated Red Blood Cells % 0.9 % Red Blood Cell Morphology Unremarkable Sodium Level 132 mmol/L Potassium Level 4.2 mmol/L Chloride Level 95 mmol/L Carbon Dioxide Level 31 mmol/L Anion Gap 6.0 mmol/L Blood Urea Nitrogen 22 mg/dl Creatinine 1.01 mg/dl Est Creatinine Clear Calc Drug Dose 75.7 ml/min Estimated GFR () 82.2 Estimated GFR (Non- 70.9 BUN/Creatinine Ratio 22.0 Random Glucose 87 mg/dl Calcium Level 7.7 mg/dl Magnesium Level 2.0 mg/dl Total Bilirubin 1.0 mg/dl Direct Bilirubin 0.7 mg/dl Aspartate Amino Transf (AST/SGOT) 19 U/L Alanine Aminotransferase (ALT/SGPT) 32 U/L Alkaline Phosphatase 98 U/L Total Protein 5.4 gm/dl Albumin 1.8 gm/dl Procalcitonin 0.93 ng/ml Test 12/07/16 05:50 12/07/16 06:15 Bedside Glucose 102 mg/dl Blood Gas Sample Site R Radial Bedside Blood Gas pH (LAB) 7.42 Bedside Blood Gas pCO2 (LAB) 49 mmHg Bedside Blood Gas pO2 (LAB) 78 mmHg Bedside Blood Gas HCO3 (LAB) 31 meq/L Bedside Blood Gas Total CO2 33 mEq/l Bedside Blood Gas Base Excess (LAB) 7.0 meq/L Bedside Blood Gas O2 Saturation 95.0 % Rajesh Test Pass Oxygen Delivery Device Ventilator Bedside Oxygen Rate (breaths/min) 16 Blood Gas Minute Ventilation 8 Bedside FiO2 40 % Blood Gas Tidal Volume 500 Blood Gas PEEP 5
[2016-12-07] MEDS ORDERED: FUROSEMIDE 40 MG/4 ML VIAL IV STA (18:00)
[2016-12-07] MEDS: PROPOFOL IV EMULSION 10 MG/ML 100 ML VIAL IV PRN (18:01)
[2016-12-07] MEDS ORDERED: FIBERSOURCE HN 1000ML BAG OG SCH ×2 (18:14)
[2016-12-07] MEDS ORDERED: NURSING DECISION MEDICATION ORDER SCH (18:30)
[2016-12-07] MEDS ORDERED: FUROSEMIDE INJ 40 MG in SYRINGE 0 ML IV ONE (19:50)
[2016-12-07] MEDS: FLUTICASONE/SALMETEROL 250/50 (ADVAIR) 14 PUFF/1 INHALER INH SCH (20:10)
[2016-12-07] MEDS: LATANOPROST 0.005% OP SOLN 2.5 ML BTL OPL SCH (20:12)
[2016-12-07] MEDS: SIMVASTATIN 10 MG TAB PO SCH (20:12)
[2016-12-07] MEDS: RIVAROXABAN 10 MG TAB PO SCH (20:12)
--- NOTE | 2016-12-07 20:15 | Progress Note ---
Subjective Date of Service: Dec 07, 2016. Subjective Pt evaluation today including: physical exam, chart review, lab review, review of studies (echo, cxrs), conversation w/ cardiology clinical consultant (critical care ), review of inpatient medication list Pain: nothing obvious on exam PO Intake: npo, intubated Voiding: griffith catheter in place overnight - remained intubated, sedated tele - a. fib, rates > 100 low-grade fevers opens eyes briefly to voice then returns to sleep Problem List Medical Problems: (1) Atrial fibrillation with rapid ventricular response Status: Acute (2) Bilateral pneumonia Status: Acute (3) Cardiac ischemia Status: Acute (4) Pulmonary congestion Status: Acute (5) Respiratory failure Status: Acute (6) Right acetabular fracture Status: Acute Review of Systems cannot obtain ROS due to intubated status Objective Vital Signs Date Time Temp Pulse Resp B/P (MAP) Pulse Ox O2 Delivery O2 Flow Rate FiO2 12/07/16 19:30 40 12/07/16 18:15 40 12/07/16 18:00 116 16 125/71 (89) 97 Mechanical Ventilator 40 12/07/16 16:00 97 Mechanical Ventilator 40 12/07/16 16:00 37.3 109 16 116/78 (91) 97 Mechanical Ventilator 40 12/07/16 16:00 40 12/07/16 14:15 40 12/07/16 14:00 102 16 121/61 (81) 97 Mechanical Ventilator 40 12/07/16 12:00 40 12/07/16 12:00 94 Mechanical Ventilator 40 12/07/16 12:00 37.2 110 17 106/74 (85) 93 Mechanical Ventilator 40 12/07/16 11:43 40 12/07/16 11:40 40 12/07/16 10:00 129 17 115/56 (75) 97 Mechanical Ventilator 40 12/07/16 08:00 37.1 126 16 118/71 (87) 96 Mechanical Ventilator 40 12/07/16 08:00 Mechanical Ventilator 40 12/07/16 08:00 40 12/07/16 08:00 94 Mechanical Ventilator 40 12/07/16 07:25 40 12/07/16 06:01 121 16 113/68 (79) 96 12/07/16 06:00 37.5 12/07/16 05:37 40 12/07/16 05:01 109 16 105/58 (70) 97 12/07/16 04:01 108 16 103/61 (68) 97 12/07/16 04:00 40 12/07/16 04:00 97 Mechanical Ventilator 40 12/07/16 03:50 108 18 97 Mechanical Ventilator 40 12/07/16 03:01 94 16 102/63 (85) 96 12/07/16 02:33 40 12/07/16 02:30 99 16 99 12/07/16 02:01 112 16 112/58 (70) 98 12/07/16 01:30 124 16 97 12/07/16 01:01 113 16 106/63 (71) 98 12/07/16 00:30 113 16 99 12/07/16 00:01 37.5 12/07/16 00:01 111 16 107/62 (76) 99 12/06/16 23:59 60 12/06/16 23:59 99 Mechanical Ventilator 40 12/06/16 23:50 40 12/06/16 23:45 50 12/06/16 23:31 114 16 117/62 (69) 99 12/06/16 23:01 120 16 106/66 (70) 100 12/06/16 22:31 113 16 94/59 (73) 100 12/06/16 22:00 113 16 114/59 (78) 99 12/06/16 21:31 115 17 116/73 (80) 100 12/06/16 21:01 103 13 117/56 (73) 100 12/06/16 20:59 50 12/06/16 20:57 60 12/06/16 20:31 111 16 109/66 (72) 100 Physical Exam General Appearance: no apparent distress, + obese, + pertinent finding ( intubated, sedated) ENT: + pertinent finding (ETT in place) Neck: + JVD Respiratory/Chest: no respiratory distress, no accessory muscle use, + decreased breath sounds, + rales (bases), + rhonchi, + wheezing Cardiovascular: + tachycardia, + irregularly irregular Abdomen: normal bowel sounds, non tender, soft, no organomegaly, + pertinent finding (healing midline scar/incision lower abdominal wall ) Extremities: + pedal edema, + swelling (4+ b/l to the thighs) Neurologic/Psychiatric: + pertinent finding (sedated, only briefly opens eyes to commands ) Laboratory Results Last 24 Hours Test 12/06/16 20:58 12/06/16 23:39 12/07/16 03:52 12/07/16 05:50 Lactic Acid Level 0.9 mmol/L Total Creatine Kinase 44 U/L 29 U/L Creatine Kinase MB 1.0 ng/ml 0.7 ng/ml Creatine Kinase MB Ratio 2.3 2.4 Troponin I 0.021 ng/ml < 0.015 ng/ml Bedside Glucose 96 mg/dl 102 mg/dl White Blood Count 4.00 K/uL Red Blood Count 2.76 M/uL Hemoglobin 7.6 g/dL Hematocrit 24.1 % Mean Corpuscular Volume 87.3 fL Mean Corpuscular Hemoglobin 27.5 pg Mean Corpuscular Hemoglobin Concent 31.5 g/dl Platelet Count 166 K/uL Mean Platelet Volume 9.6 fL Neutrophils (%) (Auto) 78.1 % Lymphocytes (%) (Auto) 7.5 % Monocytes (%) (Auto) 12.8 % Eosinophils (%) (Auto) 0.8 % Basophils (%) (Auto) 0.3 % Neutrophils # (Auto) 3.13 K/uL Lymphocytes # (Auto) 0.30 K/uL Monocytes # (Auto) 0.51 K/uL Eosinophils # (Auto) 0.03 K/uL Basophils # (Auto) 0.01 K/uL RDW Standard Deviation 47.7 fL RDW Coefficient of Variation 15.0 % Immature Granulocyte % (Auto) 0.5 % Immature Granulocyte # (Auto) 0.02 K/uL Nucleated RBC Absolute Count (auto) 0.04 K/uL Nucleated Red Blood Cells % 0.9 % Red Blood Cell Morphology Unremarkable Sodium Level 132 mmol/L Potassium Level 4.2 mmol/L Chloride Level 95 mmol/L Carbon Dioxide Level 31 mmol/L Anion Gap 6.0 mmol/L Blood Urea Nitrogen 22 mg/dl Creatinine 1.01 mg/dl Est Creatinine Clear Calc Drug Dose 75.7 ml/min Estimated GFR () 82.2 Estimated GFR (Non- 70.9 BUN/Creatinine Ratio 22.0 Random Glucose 87 mg/dl Calcium Level 7.7 mg/dl Magnesium Level 2.0 mg/dl Total Bilirubin 1.0 mg/dl Direct Bilirubin 0.7 mg/dl Aspartate Amino Transf (AST/SGOT) 19 U/L Alanine Aminotransferase (ALT/SGPT) 32 U/L Alkaline Phosphatase 98 U/L Total Protein 5.4 gm/dl Albumin 1.8 gm/dl Procalcitonin 0.93 ng/ml Test 12/07/16 06:15 12/07/16 11:47 12/07/16 17:14 Blood Gas Sample Site R Radial Bedside Blood Gas pH (LAB) 7.42 Bedside Blood Gas pCO2 (LAB) 49 mmHg Bedside Blood Gas pO2 (LAB) 78 mmHg Bedside Blood Gas HCO3 (LAB) 31 meq/L Bedside Blood Gas Total CO2 33 mEq/l Bedside Blood Gas Base Excess (LAB) 7.0 meq/L Bedside Blood Gas O2 Saturation 95.0 % Rajesh Test Pass Oxygen Delivery Device Ventilator Bedside Oxygen Rate (breaths/min) 16 Blood Gas Minute Ventilation 8 Bedside FiO2 40 % Blood Gas Tidal Volume 500 Blood Gas PEEP 5 Bedside Glucose 104 mg/dl 95 mg/dl Assessment and Plan 76yo male: 1. acute hypoxic/hypercarbic respiratory failure - likely combination of pneumonia + CHF. Remains on the vent - defer management to critical care. 2. b/l pneumonia - MRSA vs gram negative etiology possible. Remains on triple IV abx including levaquin, zosyn, and vancomycin. Cont supportive care, vent, pulmonary toilet, etc. Day #2 of IV abx therapy. 3. acute/chronic right-sided heart failure with diastolic dysfunction - would stop IVF and give IV lasix; appears to be in active CHF. 4. a. fib with RVR - consider titration of BB and/or CCB. Remains on xarelto for anticoagulation. Amiodarone also on board but clearly not keeping in NSR. Could be used for rate control, however. 5. recent acetabulum fracture s/p repair at [facility] - noted. 6. syncope - apparently after leaving [facility] from [facility] he had a syncopal episode. Details of this are unknown. CT head - negative. Due to hypoxia? 7. HTN - controlled with current regimen of medications. 8. CAD - no evidence of ischemia at this time. Troponins negative. 9. T2DM - glycemic control per ICU. FSBS q6h. 10. COPD - wheezing could be cardiac in nature (from pulmonary edema) or due to the COPD itself. Consider steroids if needed. Diurese. Bronchodilators via vent circuit. Pulmonary toilet. 11. DVT proph - xarelto. 12. FEN - would d/c fluids; BMP am; consider starting enteral feedings today. Continued [facility] stay due to: multiple IV medications needed, other (intubation, resp failure ) Discharge planning: uncertain
[2016-12-08] VITALS (14 sets, daily range): BP systolic 104–140; BP diastolic 60–87; PULSE 92–110; TEMP 37–37.5; O2SAT 93–99
[2016-12-08] MEDS: SODIUM CHLORIDE 0.9% 1000ML 1,000 ML IV SCH (02:01)
[2016-12-08] MEDS: DILTIAZEM HCL 60 MG TAB PO SCH ×4 (03:31→21:23)
[2016-12-08] MEDS: PIPERACILL/TAZOBAC IV 4.5 GM in DEXTROSE 5% 100ML IV SCH ×3 (03:31→19:44)
[2016-12-08] MEDS: IPRATROPIUM BROMIDE HFA INHALER INH SCH ×6 (03:33→23:08)
[2016-12-08] MEDS: ALBUTEROL HFA 8 GM INHALER INH SCH ×6 (03:33→23:08)
[2016-12-08] MEDS: INSULIN ASPART 100 UNITS/ML 3 ML PEN SC SCH ×4 (06:00→17:45)
[2016-12-08 06:16] LABS: BUN/CREATININE RATIO 17.7 (10-20); CALCIUM 7.7 mg/dl (8.5-10.1); CREATININE 0.88 mg/dl (0.60-1.40); MAGNESIUM 1.8 mg/dl (1.8-2.4); POTASSIUM 2.6 mmol/L (3.5-5.1)
[2016-12-08 06:25] LABS: BASO % 0.2 %; BASO ABS # 0.01 K/uL (0-0.2); EOS % 1.7 %; HEMATOCRIT 24.5 % (42-52); IG% 1.4 %; LYMPH ABS # 0.41 K/uL (1.2-3.4); MEAN CELL VOLUME 88.1 fL (80-100); MEAN CORPUSCULAR HEMOGLOBIN 27.7 pg (25-34); MEAN CORPUSCULAR HGB CONC 31.4 g/dl (32-36); MEAN PLATELET VOLUME 9.9 fL (7.4-10.4); MONO % 12.6 %; NEUT % 77.1 %; PLATELET COUNT 196 K/uL (130-400); RED BLOOD COUNT 2.78 M/uL (4.7-6.1); WHITE BLOOD COUNT 5.88 K/uL (4.8-10.8)
[2016-12-08] MEDS: PROPOFOL IV EMULSION 10 MG/ML 100 ML VIAL IV PRN (06:44)
[2016-12-08] MEDS ORDERED: POTASSIUM CHLORIDE PWD 20 MEQ PACK PO STA (06:52)
--- NOTE | 2016-12-08 07:39 | DIAGNOSTIC IMAGING REPORT ---
SINGLE VIEW CHEST CLINICAL HISTORY: Pneumonia. FINDINGS: An AP, portable, upright chest radiograph is compared to chest x-ray dated 12/07/2016 and correlated with chest CT dated 12/06/2016. The examination is degraded by portable technique, motion artifact, apical lordotic positioning, and patient rotation. A right PICC line has been advanced. The tip projects over the right atrium. Endotracheal and enteric tubes are again noted. The patient is status post midline sternotomy. The cardiomediastinal heart is enlarged and there is atherosclerotic calcification of the thoracic aorta. There is pulmonary vascular congestion. There are small layering pleural effusions with bibasilar consolidation. Multifocal airspace opacities are present throughout both lungs. No pneumothorax is seen. The skeletal structures are osteopenic. The bony thorax is grossly intact. IMPRESSION: 1. Significantly degraded examination. 2. A right PICC line has been advanced. The tip of the catheter projects at the right atrium. Repositioning is indicated. 3. Cardiomegaly with evidence of congestive failure. 4. Multifocal airspace opacities are unchanged and could represent interstitial edema and/or multifocal pneumonia. Clinical correlation will be required. 5. Layering pleural effusions with bibasilar consolidation. Electronically signed by: Laci Steele M.D. 12/08/2016 7:38 AM Dictated Date/Time: 12/08/2016 7:36 AM
[2016-12-08] MEDS: FLUTICASONE/SALMETEROL 250/50 (ADVAIR) 14 PUFF/1 INHALER INH SCH ×2 (08:33→19:45)
[2016-12-08] MEDS: PANTOprazole INJ 40 MG in SYRINGE 0 ML IV SCH (08:33)
[2016-12-08] MEDS: FLUTICASONE PROPIONATE NA SPR 16 GM BTL SCH (08:33)
[2016-12-08] MEDS ORDERED: FUROSEMIDE INJ 40 MG in SYRINGE 0 ML IV STA (08:33)
[2016-12-08] MEDS: POTASSIUM CHLR 20 MEQ / WTR 20 MEQ in PREMIXED WATER 100 ML IV SCH ×2 (08:33→09:50)
[2016-12-08] MEDS: METOPROLOL TARTRATE 100 MG TAB PO SCH ×2 (08:34→19:46)
[2016-12-08] MEDS: CYANOCOBALAMIN 100 MCG TAB (VIT B-12) PO SCH (08:35)
[2016-12-08] MEDS: AMIODARONE 200 MG TAB PO SCH (08:35)
[2016-12-08] MEDS: ASPIRIN 81 MG CHEW PO SCH (08:36)
[2016-12-08 09:03] LABS: ANISOCYTOSIS PRESENT; COMPLETE YES; HYPOCHROMIA PRESENT
[2016-12-08] MEDS ORDERED: METHYLPREDNISOLONE IV 40 MG in SYRINGE 0 ML IV ONE (09:14)
[2016-12-08] MEDS ORDERED: NURSING VERBAL MED ORDER ONE (09:30)
[2016-12-08] MEDS ORDERED: PEPTAMEN INTENSE VHP 1000ML BAG OG PRN (09:45)
[2016-12-08] MEDS: POTASSIUM CHLORIDE 20MEQ/15ML 473ML PO SCH ×2 (09:51→19:46)
--- NOTE | 2016-12-08 10:25 | Critical Care Progress Note ---
Critical Care Progress Note Date of Service Resident Physician Supervision Note: I was present with Dr. Gilbert Bruno during the history and exam. I discussed the case with the resident and agree with the findings and plan as documented in the note. In summary, the patient is a 76 year old gentleman with history of atrial fibrillation on Xarelto, coronary artery disease, status post CABG, hypertension, hyperlipidemia, CHF, COPD on 2 L of oxygen, SANDOR on CPAP at night who was brought to [facility] for unresponsiveness while signing AMA from rehabilitation facility. As per his , patient suffered a right acetabular fracture on 11/05. He underwent total hip arthroplasty at [facility] on 11/08/2016. Postoperatively patient was transferred to [facility] for rehabilitation. Over there, patient was diagnosed with pneumonia and treated with Augmentin. Patient required oxygen per nasal cannula. He was somewhat confused and short of breath while signing [employer]. Patient was transferred in the wheelchair to his car off oxygen. He managed to get into the vehicle and immediately slumped over and became unresponsive. He was no witnessed seizure. Ambulance was called, patient was brought to [facility]. She required to be intubated as he was hypoxic and was not able to protect his airways adequately. Patient was transferred critically ill to surgical intensive care unit for further evaluation. Uneventful night. No fever, chills, chest pain, abdominal pain or diarrhea. Assessment and plan: 1. Acute respiratory failure likely multifactorial secondary to pneumonia and COPD exacerbation. I disconnected the patient from the ventilator and lavaged with normal saline while bagging with Ambu bag. Significant amount of yellowish secretions were suctioned. Patient is not ready for extubation yet. Expect extubation tomorrow. 2. Pneumonia on empiric Vanco, Levaquin and Zosyn #3. Blood cultures are negative. 3. COPD for what will continue with nebulizers. Relatively high peak air pressures around 30, bilateral rhonchi. We'll attempt short course of IV steroids. Will start Solu-Medrol 40 mm IV every 12 hours. 4. Metabolic encephalopathy has improved, follow simple commands, moves all extremities. 5. Coronary artery disease, history of CABG. No signs of ischemia. Echocardiography revealed good left ventricular function, right ventricular cavity dilated, slightly decreased function. We will continue with aspirin and metoprolol. 6. Atrial fibrillation, heart rate is controlled with metoprolol, amiodarone and Cardizem. Anticoagulation with Xarelto. 7. Status post recent total right hip arthroplasty. Incisions are well healing. We'll obtain physical therapy consultation following extubation. 8. Renal function is adequate. Peripheral edema, we will continue with daily diuresis, give additional Lasix 40 mg IV 1. 9. GI: Tube feeds are tolerated well. 10. Neurologically: Improvement of encephalopathy. Patient moves all extremities, no obvious deficits. 11. Patient is full code. I updated patient's about his clinical condition and further management plan. I spent totally 35 minutes of critical care time evaluating and managing this patient. Documented By: Bill Tavarez Dec 08, 2016. ICU Day ICU Day Number: [address] Tavarez Subjective 76 year old male with COPD and 02 dependence at home had a syncopal episode after leaving [facility] after leaving in respiratory distress. Was intubated and found to have a PaC02 of 80. He is currently intubated and being treated for a hospital acquired pneumonia. Overnight he had no acute events. He continues to remain on the ventilator with a plan to keep him on the ventilator for one more day. He appears to be in heart failure currently and we will therefore be decreasing his IV fluids and giving him 40mg of lasix IV. He also has a bilateral wheeze and will be giving him 40mg of methylprednisolone. I am unable to obtain an ROS as patient is currently sleeping and intubated Objective General appearance: Morbidly obese, Well-developed, well-nourished, no apparent distress while on sedation, able to open eyes Head: Normocephalic, atraumatic ENT: Endotracheal tube is in situ Neck: Supple, unable to assess JVD due to neck thickness Respiratory/Chest: decreased breath sounds at the bases bilaterally, few crackles at the left base, scattered rhonchi. Cardiovascular: irregular rate and rhythm, no murmurs heard, normal S1-S2 Abdomen/GI: Normal bowel sounds, non-tender, soft, bowel sounds present Extremities/Musculoskeletal: 3+ pitting edema bilaterally, weak peripheral pulses Skin: Normal color, warm/dry, no rash Current SOFA Score SOFA Score Response (Comments) Value Platelets (x10) > 150 0 Bilirubin (mg/dL) < 1.2 0 Vanessa Coma Score 15 0 Level of Hypotension No Hypotension 0 Creatinine (mg/dL) < 1.2 0 Total 0 Assessment & Plan 76 year old male with PMH of afib, HTN, HLD, CAD, CHF, COPD (2L at home) and T2DM who presented to the ED on 12/06 with respiratory failure and syncope. Patient found with bilateral pneumonia on imaging with PC02 of 80. Likely cause of syncope was hypoxia and hypercapnic respiratory failure due to bilateral hospital acquired pneumonia. Patient will remain intubated for one more day CAM patient sedated with fentanyl 75mcg/hr ativan 2mg q2 prn agitation CT head without any acute changes RESP acute hypercapnic respiratory failure abg improved with PH=7.42, pC02=49, P02=78 tracheal intubation (bpm 24, fi02 =40, peep=5) bilateral hospital acquired pneumonia CXR showing PICC line, layering pleural effusions and cardiomegaly/CHF continue IV antibiotics with vanc and zosyn stop IVF repeat lactic acid was 2.7 blood cultures pending COPD on 2L at home start IV steroids 40mg methylprednisolone bid duonebs q4 and advair 1 puff inh bid CARDIAC history of [facility] with stent placement first troponin negative,remained negative EKG without ST changes continues aspirin 81mg PO and simvastatin 10mg PO qd echo - EF 6-65%, dilated R ventricle w/decreased EF and mildly elevated RSVP of 43mmg give 40mg lasix IV monitor I/O's positive fluids balance yesterday ([id number]_ Afib with RVR, rate controlled, continue diltiazem 360mg PO qd, lopressor 100mg bid, continue amiodarone and xarelto 20mg qd for anticoagulation INR 1.5 Mag 2.0 RENAL IV fluids stopped creatinine 1.01 monitor 1/O's GI elevated LFT's resolved likely due to sepsis continue to monitor on peptamen high protein 60cc tube feeds ID bilateral hospital acquired pneumonia continue zosyn and vanc blood culture pending lactic acid elevated at 2.7 procalcitonin 0.93 continue to monitor wcc and fever curve ENDO T2 DM last HbA1c 6.2 on 10/07/16 order ISS check bsg qac and qhs HEME hgb 7.7 and stable spoke to Dr. Tavarez and will hold off on PRBC administration for now DVT prophylaxis xarelto resumed as patient afib ALPHONSO morae and SCD's FULL CODE [facility] II Score Date Score Was Generated: Dec 07, 2016 Consults & Procedures Consultants: Critical care medicine. Procedures: Intubation on 11/06/2016. Data Medications: Current Inpatient Medications Medications (Trade) Dose Ordered Sig/Janee Route Start Time Stop Time Status Last Admin Dose Admin Ioversol (Optiray 320) 125 ml UD PRN IV 12/06/16 12:00 12/10/16 11:59 Sodium Chloride 1,000 ml @ 40 mls/hr Q24H IV 12/06/16 14:00 01/05/17 13:59 12/08/16 02:01 40 MLS/HR Glucose (Glucose 40% Gel) 15-30 GRAMS 15 GRAMS... UD PRN PO 12/06/16 14:45 01/05/17 14:44 Glucose (Glucose Chew Tab) 4-8 Tablets 4 Tabl... UD PRN PO 12/06/16 14:45 01/05/17 14:44 Dextrose (Dextrose 50% 50ML Syringe) 25-50ML OF 50% DW IV FOR... UD PRN IV 12/06/16 14:45 01/05/17 14:44 Glucagon (Glucagon Inj) 1 mg UD PRN SQ 12/06/16 14:45 01/05/17 14:44 Lorazepam (Ativan Inj) 2 mg Q2H PRN IV 12/06/16 17:00 01/05/17 16:59 12/06/16 21:53 2 MG Insulin Aspart (novoLOG ASPART) SLIDING SCALE If C... Q6 SC 12/07/16 00:00 01/06/17 00:00 Levofloxacin 750 mg/Prmx 150 ml @ 100 mls/hr Q24H IV 12/07/16 14:00 12/12/16 15:29 12/07/16 13:47 100 MLS/HR Piperacillin Sod/ Tazobactam Sod 4.5 gm/Dextrose 120 ml @ 30 mls/hr Q8H IV 12/07/16 04:00 12/14/16 03:59 12/08/16 03:31 30 MLS/HR Amiodarone HCl (Cordarone Tab) 200 mg DAILY PO 12/07/16 09:00 01/06/17 08:59 12/08/16 08:35 200 MG Cyanocobalamin (Vitamin B-12 Tab) 100 mcg DAILY PO 12/07/16 09:00 01/06/17 08:59 12/08/16 08:35 100 MCG Salmeterol Xinafoate/ Fluticasone (Advair Diskus 250/50 Inh) 1 puff BID INH 12/07/16 09:00 01/06/17 08:59 Fluticasone Propionate (Flonase Nasal [place]) 1 sprays DAILY NA 12/07/16 09:00 01/06/17 08:59 12/08/16 08:33 1 SPRAYS Furosemide (Lasix Tab) 40 mg QDD PO 12/07/16 16:30 01/06/17 16:29 12/07/16 15:30 40 MG Furosemide (Lasix Tab) 80 mg QAM PO 12/07/16 09:00 01/06/17 08:59 12/07/16 09:15 80 MG Latanoprost (Xalatan Oph Soln) 1 drops HS OPL 12/07/16 21:00 01/06/17 20:59 12/07/16 20:12 1 DROPS Metoprolol Tartrate (Lopressor Tab) 100 mg BID PO 12/07/16 09:00 01/06/17 08:59 12/08/16 08:34 100 MG Rivaroxaban (Xarelto Tab) 20 mg HS PO 12/07/16 21:00 01/06/17 20:59 12/07/16 20:12 20 MG Senna/Docusate Sodium (Senokot S Tab) 1 tab QDL PRN PO 12/07/16 00:30 01/06/17 00:29 Simvastatin (Zocor Tab) 10 mg QPM PO 12/07/16 21:00 01/06/17 20:59 12/07/16 20:12 10 MG Vancomycin HCl 1750 mg/Sodium Chloride 535 ml @ 200 mls/hr Q16H IV 12/07/16 04:00 12/14/16 03:59 12/07/16 20:11 200 MLS/HR Vancomycin HCl (Consult) 1 ea UD PRN N/A 12/07/16 01:30 01/06/17 01:29 Piperacillin Sod/ Tazobactam Sod (Consult) 1 ea UD PRN N/A 12/07/16 01:30 01/06/17 01:29 Ipratropium [place] (Atrovent Hfa Inhaler) 4 puffs Q4R INH 12/07/16 04:00 01/06/17 03:59 12/08/16 07:26 4 PUFFS Albuterol (Ventolin Hfa Inhaler) 4 puffs Q4R INH 12/07/16 04:00 01/06/17 03:59 12/08/16 07:26 4 PUFFS Pantoprazole Sodium 40 mg/ Syringe 10 ml @ 5 mls/min DAILY@0900 IV 12/07/16 09:00 01/06/17 08:59 12/08/16 08:33 5 MLS/MIN Aspirin (Aspirin Chew) 81 mg QAM PO 12/07/16 09:00 01/06/17 08:59 12/08/16 08:36 81 MG Diltiazem HCl (Cardizem Tab) 60 mg Q6H PO 12/07/16 10:00 01/06/17 09:59 12/08/16 09:50 60 MG Propofol (Diprivan Iv Emulsion 100ml Vial) 1 dose UD PRN IV 12/07/16 17:30 12/10/16 17:29 12/08/16 06:44 1 DOSE Enteral Nutritional Formula (Fibersource Hn) 1,000 ml UD OG 12/07/16 18:14 01/06/17 18:13 12/07/16 18:24 1,000 ML Potassium Chloride 20 meq/ Prmx 100 ml @ 50 mls/hr Q2H IV 12/08/16 06:55 12/08/16 10:54 12/08/16 09:50 50 MLS/HR Methylprednisolone Sodium Succinate 40 mg/Syringe 0.64 ml @ 1.5 mls/min Q12 IV 12/08/16 21:00 01/07/17 20:59 Potassium Chloride (Zehra Ciel Elix) 10 meq BID PO 12/08/16 10:00 01/07/17 09:59 12/08/16 09:51 10 MEQ Enteral Nutritional Formula (Peptamen Intense VHP) 1,000 ml UD PRN OG 12/08/16 09:45 01/07/17 09:44 UNV Vital Signs: Date Time Temp Pulse Resp B/P (MAP) Pulse Ox O2 Delivery O2 Flow Rate FiO2 12/08/16 08:50 40 12/08/16 08:00 Mechanical Ventilator 40 12/08/16 08:00 40 12/08/16 08:00 110 16 107/80 (89) 98 Mechanical Ventilator 40 12/08/16 07:27 40 12/08/16 06:00 93 16 114/60 (78) 98 Mechanical Ventilator 40 12/08/16 05:25 40 12/08/16 04:00 40 12/08/16 04:00 Mechanical Ventilator 40 12/08/16 04:00 37.0 98 16 140/87 (104) 95 Mechanical Ventilator 40 12/08/16 03:33 100 16 98 Mechanical Ventilator 40 12/08/16 02:14 40 12/08/16 02:00 92 16 137/67 (90) 99 Mechanical Ventilator 40 12/08/16 00:01 37.0 95 16 120/63 (82) 97 Mechanical Ventilator 40 12/07/16 23:59 40 12/07/16 23:59 Mechanical Ventilator 40 12/07/16 23:10 40 12/07/16 22:00 94 16 116/68 (84) 99 Mechanical Ventilator 40 12/07/16 20:00 37.7 110 16 119/70 (86) 98 Mechanical Ventilator 40 12/07/16 20:00 Mechanical Ventilator 40 12/07/16 20:00 40 12/07/16 19:30 40 12/07/16 18:15 40 12/07/16 18:00 116 16 125/71 (89) 97 Mechanical Ventilator 40 12/07/16 16:00 97 Mechanical Ventilator 40 12/07/16 16:00 37.3 109 16 116/78 (91) 97 Mechanical Ventilator 40 12/07/16 16:00 40 12/07/16 14:15 40 12/07/16 14:00 102 16 121/61 (81) 97 Mechanical Ventilator 40 12/07/16 12:00 40 12/07/16 12:00 94 Mechanical Ventilator 40 12/07/16 12:00 37.2 110 17 106/74 (85) 93 Mechanical Ventilator 40 12/07/16 11:43 40 12/07/16 11:40 40 Laboratory Results: Last 24 Hours Test 12/07/16 11:47 12/07/16 17:14 12/08/16 00:04 12/08/16 05:28 Bedside Glucose 104 mg/dl 95 mg/dl 104 mg/dl White Blood Count 5.88 K/uL Red Blood Count 2.78 M/uL Hemoglobin 7.7 g/dL Hematocrit 24.5 % Mean Corpuscular Volume 88.1 fL Mean Corpuscular Hemoglobin 27.7 pg Mean Corpuscular Hemoglobin Concent 31.4 g/dl Platelet Count 196 K/uL Mean Platelet Volume 9.9 fL Neutrophils (%) (Auto) 77.1 % Lymphocytes (%) (Auto) 7.0 % Monocytes (%) (Auto) 12.6 % Eosinophils (%) (Auto) 1.7 % Basophils (%) (Auto) 0.2 % Neutrophils # (Auto) 4.54 K/uL Lymphocytes # (Auto) 0.41 K/uL Monocytes # (Auto) 0.74 K/uL Eosinophils # (Auto) 0.10 K/uL Basophils # (Auto) 0.01 K/uL RDW Standard Deviation 48.4 fL RDW Coefficient of Variation 15.0 % Immature Granulocyte % (Auto) 1.4 % Immature Granulocyte # (Auto) 0.08 K/uL Nucleated RBC Absolute Count (auto) 0.09 K/uL Nucleated Red Blood Cells % 1.5 % Hypochromasia PRESENT Anisocytosis PRESENT Sodium Level 132 mmol/L Potassium Level 2.6 mmol/L Chloride Level 92 mmol/L Carbon Dioxide Level 34 mmol/L Anion Gap 6.0 mmol/L Blood Urea Nitrogen 16 mg/dl Creatinine 0.88 mg/dl Est Creatinine Clear Calc Drug Dose 87.5 ml/min Estimated GFR () 95.4 Estimated GFR (Non- 82.3 BUN/Creatinine Ratio 17.7 Random Glucose 98 mg/dl Calcium Level 7.7 mg/dl Magnesium Level 1.8 mg/dl Total Bilirubin 1.0 mg/dl Direct Bilirubin 0.7 mg/dl Aspartate Amino Transf (AST/SGOT) 20 U/L Alanine Aminotransferase (ALT/SGPT) 30 U/L Alkaline Phosphatase 113 U/L Total Protein 5.3 gm/dl Albumin 1.7 gm/dl Procalcitonin 0.58 ng/ml
[2016-12-08] MEDS ORDERED: VANCOMYCIN TROUGH SCH (11:30)
[2016-12-08] MEDS ORDERED: FENTANYL CITRATE INJ 50 MCG/1 ML 2 ML VIAL IV ONE (12:15)
[2016-12-08] MEDS ORDERED: SUCCINYLCHOLINE CHLORIDE 20 MG/ML 10 ML VIAL IV ONE (12:15)
[2016-12-08] MEDS ORDERED: ETOMIDATE 2 MG/ML 20 ML VIAL IV ONE (12:15)
[2016-12-08] MEDS: FUROSEMIDE 40 MG TAB PO SCH ×2 (12:39→15:53)
[2016-12-08] MEDS: VANCOMYCIN INJ 1,750 MG in SODIUM CHLORIDE 0.9% 500ML 500 ML IV SCH (12:39)
--- NOTE | 2016-12-08 13:02 | Progress Note ---
Subjective Date of Service: Dec 08, 2016. Subjective Pt evaluation today including: conversation w/ patient, conversation w/ family ( at bedside), physical exam, chart review, lab review, review of studies ( echo, cxr), conversation w/ home performance consultant (critical care), review of inpatient medication list Pain: none perceived PO Intake: npo, ng tube feedings in place Voiding: griffith catheter in place tele with mina coleman, rates low 100s during my visit reports hospitalization at [facility] from Nov 04 to mid November due to pelvic fracture. the pelvic fracture was repaired via anterior approach through lower abdomen right hip was replaced no other medical issues per her recollection follows with Dr. Jordan Parson with [facility] cardiology uses CPAP for SANDOR staff report thick copious secretions via ETT patient following commands for me during the visit Problem List Medical Problems: (1) Atrial fibrillation with rapid ventricular response Status: Acute (2) Bilateral pneumonia Status: Acute (3) Cardiac ischemia Status: Acute (4) Pulmonary congestion Status: Acute (5) Respiratory failure Status: Acute (6) Right acetabular fracture Status: Acute Review of Systems patient shakes head NO to being asked about pain Objective Vital Signs Date Time Temp Pulse Resp B/P (MAP) Pulse Ox O2 Delivery O2 Flow Rate FiO2 12/08/16 12:00 105 16 104/62 (76) 99 CPAP 40 Mechanical Ventilator 12/08/16 12:00 40 12/08/16 12:00 Mechanical Ventilator 40 12/08/16 11:02 40 12/08/16 10:15 40 12/08/16 10:13 106 16 124/68 (86) 94 CPAP 40 Mechanical Ventilator 12/08/16 08:50 40 12/08/16 08:00 Mechanical Ventilator 40 12/08/16 08:00 Mechanical Ventilator 40 12/08/16 08:00 40 12/08/16 08:00 110 16 107/80 (89) 98 Mechanical Ventilator 40 12/08/16 07:27 40 12/08/16 06:00 93 16 114/60 (78) 98 Mechanical Ventilator 40 12/08/16 05:25 40 12/08/16 04:00 40 12/08/16 04:00 Mechanical Ventilator 40 12/08/16 04:00 37.0 98 16 140/87 (104) 95 Mechanical Ventilator 40 12/08/16 03:33 100 16 98 Mechanical Ventilator 40 12/08/16 02:14 40 12/08/16 02:00 92 16 137/67 (90) 99 Mechanical Ventilator 40 12/08/16 00:01 37.0 95 16 120/63 (82) 97 Mechanical Ventilator 40 12/07/16 23:59 40 12/07/16 23:59 Mechanical Ventilator 40 12/07/16 23:10 40 12/07/16 22:00 94 16 116/68 (84) 99 Mechanical Ventilator 40 12/07/16 20:00 37.7 110 16 119/70 (86) 98 Mechanical Ventilator 40 12/07/16 20:00 Mechanical Ventilator 40 12/07/16 20:00 40 12/07/16 19:30 40 12/07/16 18:15 40 12/07/16 18:00 116 16 125/71 (89) 97 Mechanical Ventilator 40 12/07/16 16:00 97 Mechanical Ventilator 40 12/07/16 16:00 37.3 109 16 116/78 (91) 97 Mechanical Ventilator 40 12/07/16 16:00 40 12/07/16 14:15 40 12/07/16 14:00 102 16 121/61 (81) 97 Mechanical Ventilator 40 Physical Exam General Appearance: no apparent distress, + obese, + pertinent finding ( intubated, awake, alert, following commands) ENT: + pertinent finding (ETT in place) Neck: + JVD Respiratory/Chest: no respiratory distress, no accessory muscle use, + decreased breath sounds (left base), + rales (right base), + rhonchi, + wheezing Cardiovascular: no gallop, no murmur, + tachycardia, + irregularly irregular Abdomen: normal bowel sounds, non tender, soft, no organomegaly, + distended ( mild) Extremities: + pedal edema, + swelling (2+ b/l up to the thighs) Neurologic/Psychiatric: alert Skin: + pertinent finding (RUE PICC line clean) Laboratory Results Last 24 Hours Test 12/07/16 17:14 12/08/16 00:04 12/08/16 05:28 12/08/16 11:19 Bedside Glucose 95 mg/dl 104 mg/dl White Blood Count 5.88 K/uL Red Blood Count 2.78 M/uL Hemoglobin 7.7 g/dL Hematocrit 24.5 % Mean Corpuscular Volume 88.1 fL Mean Corpuscular Hemoglobin 27.7 pg Mean Corpuscular Hemoglobin Concent 31.4 g/dl Platelet Count 196 K/uL Mean Platelet Volume 9.9 fL Neutrophils (%) (Auto) 77.1 % Lymphocytes (%) (Auto) 7.0 % Monocytes (%) (Auto) 12.6 % Eosinophils (%) (Auto) 1.7 % Basophils (%) (Auto) 0.2 % Neutrophils # (Auto) 4.54 K/uL Lymphocytes # (Auto) 0.41 K/uL Monocytes # (Auto) 0.74 K/uL Eosinophils # (Auto) 0.10 K/uL Basophils # (Auto) 0.01 K/uL RDW Standard Deviation 48.4 fL RDW Coefficient of Variation 15.0 % Immature Granulocyte % (Auto) 1.4 % Immature Granulocyte # (Auto) 0.08 K/uL Nucleated RBC Absolute Count (auto) 0.09 K/uL Nucleated Red Blood Cells % 1.5 % Hypochromasia PRESENT Anisocytosis PRESENT Sodium Level 132 mmol/L Potassium Level 2.6 mmol/L Chloride Level 92 mmol/L Carbon Dioxide Level 34 mmol/L Anion Gap 6.0 mmol/L Blood Urea Nitrogen 16 mg/dl Creatinine 0.88 mg/dl Est Creatinine Clear Calc Drug Dose 87.5 ml/min Estimated GFR () 95.4 Estimated GFR (Non- 82.3 BUN/Creatinine Ratio 17.7 Random Glucose 98 mg/dl Calcium Level 7.7 mg/dl Magnesium Level 1.8 mg/dl Total Bilirubin 1.0 mg/dl Direct Bilirubin 0.7 mg/dl Aspartate Amino Transf (AST/SGOT) 20 U/L Alanine Aminotransferase (ALT/SGPT) 30 U/L Alkaline Phosphatase 113 U/L Total Protein 5.3 gm/dl Albumin 1.7 gm/dl Procalcitonin 0.58 ng/ml Vancomycin Level Trough 17.6 mcg/ml Assessment and Plan 76yo male: 1. acute hypoxic/hypercarbic respiratory failure - likely combination of pneumonia + CHF. Former most prominent. Remains on the vent - defer management to critical care. Did fairly well with PSV trial. possible extubation tomorrow. 2. b/l pneumonia - MRSA vs gram negative etiology possible. Remains on triple IV abx including levaquin, zosyn, and vancomycin. Cont supportive care, vent, pulmonary toilet, etc. Day #3 of IV abx therapy. Consider tracheal aspirate to guide abx therapy. Add robitussin for thick secretions. Pulmonary toilet. CXR today - stable. 3. acute/chronic right-sided heart failure with diastolic dysfunction - agree with ongoing diuresis. . Repeat BMP/mag/phos now. 4. a. fib with RVR - consider titration of BB and/or CCB. Remains on xarelto for anticoagulation. Amiodarone also on board but clearly not keeping in NSR. Could be used for rate control, however. 5. recent acetabulum fracture s/p repair at [facility] - noted. 6. syncope - apparently after leaving [place] [facility] he had a syncopal episode. CT head - negative. Due to hypoxia? 7. HTN - controlled with current regimen of medications. 8. CAD - no evidence of ischemia at this time. Troponins negative. 9. T2DM - glycemic control per ICU. FSBS q6h. Control adequate. 10. COPD - wheezing could be cardiac in nature (from pulmonary edema) or due to the COPD itself. Consider steroids if needed. Diurese. Bronchodilators via vent circuit. Pulmonary toilet. 11. DVT proph - xarelto. 12. FEN - hypokalemia was replaced; would repeat the BMP now along with mag/ phos. Tube feedings per ICU team. 13. hypokalemia - replaced, recheck level now. 14. severe protein calorie malnutrition - on tube feedings per ICU. Address once off the vent with additional supplements. 15. anemia - appears acute/chronic - consider transfusion if Hb < 7.5 and in light of critical status. Continued [facility] stay due to: fever, abnormal vital signs, inadequate po fluid intake, inadequate oral pain control, voiding difficulties, ambulation difficulties, multiple IV medications needed, other (intubation, resp failure ) Discharge planning: uncertain
--- NOTE | 2016-12-08 13:13 | Pharmacy Progress Note ---
Pharmacy Abx Dose Short Note Date of Service Dec 08, 2016. Assessment & Plan Assessment 76 year old male receiving vancomcyin, levaquin, and zosyn for treatment of pneumonia. Day # 3/7 of antimicrobial therapy. Plan Will monitor for trend in renal function and adjust accordingly. Vancomycin * Trough level of 1706 mcg/mL is therapeutic. * Continue dose of 1750 mg IV every 16 hours * Goal trough level: 15 to 20 mcg/mL Pharmacy will continue to follow and will adjust dose/frequency as necessary. Thank you.
[2016-12-08 13:59] LABS: BUN/CREATININE RATIO 16.8 (10-20); CALCIUM 7.9 mg/dl (8.5-10.1); CREATININE 0.86 mg/dl (0.60-1.40); MAGNESIUM 1.9 mg/dl (1.8-2.4); PHOSPHORUS 1.7 mg/dl (2.5-4.9); POTASSIUM 3.8 mmol/L (3.5-5.1)
[2016-12-08] MEDS ORDERED: POTASSIUM PHOS 3 MMOL/1 ML INFUSION IV STA (14:29)
[2016-12-08] MEDS: GUAIFENESIN SUGAR FREE 100 MG/5 ML UDC NG SCH ×2 (14:31→19:45)
[2016-12-08] MEDS: LEVOFLOXACIN / D5W 750 MG in PREMIXED IN D5W 150 ML IV SCH (14:31)
[2016-12-08] MEDS ORDERED: POTASSIUM PHOSPHATE INJ 40 MMOL in SODIUM CHLORIDE 0.9% 1000ML 1,000 ML IV ONE (15:00)
[2016-12-08] MEDS ORDERED: POTASSIUM PHOSPHATE INJ 21 MMOL in SODIUM CHLORIDE 0.9% 500ML 500 ML IV ONE (15:15)
[2016-12-08] MEDS: MAGNESIUM SULFATE 1GM / D5W 1 GM in PREMIXED IN D5W 100 ML IV SCH ×2 (15:48→17:20)
[2016-12-08] MEDS: LATANOPROST 0.005% OP SOLN 2.5 ML BTL OPL SCH (19:45)
[2016-12-08] MEDS: METHYLPREDNISOLONE IV 40 MG in SYRINGE 0 ML IV SCH (19:45)
[2016-12-08] MEDS: RIVAROXABAN 10 MG TAB PO SCH (19:47)
[2016-12-08] MEDS: SIMVASTATIN 10 MG TAB PO SCH (19:48)
[2016-12-08] MEDS: LORAZEPAM 2 MG/ML 1 ML VIAL IV PRN (23:10)
[2016-12-09] VITALS (20 sets, daily range): BP systolic 112–152; BP diastolic 76–100; PULSE 92–130; TEMP 37–37.3; O2SAT 93–97
[2016-12-09] MEDS: GUAIFENESIN SUGAR FREE 100 MG/5 ML UDC NG SCH ×4 (01:55→19:41)
[2016-12-09] MEDS: ALBUTEROL HFA 8 GM INHALER INH SCH ×2 (03:31→07:27)
[2016-12-09] MEDS: IPRATROPIUM BROMIDE HFA INHALER INH SCH ×2 (03:31→07:27)
[2016-12-09] MEDS: PIPERACILL/TAZOBAC IV 4.5 GM in DEXTROSE 5% 100ML IV SCH (03:55)
[2016-12-09] MEDS: VANCOMYCIN INJ 1,750 MG in SODIUM CHLORIDE 0.9% 500ML 500 ML IV SCH (03:55)
[2016-12-09] MEDS: DILTIAZEM HCL 60 MG TAB PO SCH ×4 (03:56→21:22)
[2016-12-09] MEDS: INSULIN ASPART 100 UNITS/ML 3 ML PEN SC SCH ×4 (06:00→20:24)
[2016-12-09 06:06] LABS: HEMATOCRIT 26.7 % (42-52); IG% 2.9 %; LYMPH % 6.6 %; LYMPH ABS # 0.37 K/uL (1.2-3.4); MEAN CELL VOLUME 87.3 fL (80-100); MEAN CORPUSCULAR HEMOGLOBIN 27.8 pg (25-34); MEAN CORPUSCULAR HGB CONC 31.8 g/dl (32-36); MEAN PLATELET VOLUME 9.6 fL (7.4-10.4); MONO % 5.2 %; NEUT % 85.3 %; PLATELET COUNT 224 K/uL (130-400); RED BLOOD COUNT 3.06 M/uL (4.7-6.1); WHITE BLOOD COUNT 5.61 K/uL (4.8-10.8)
[2016-12-09 06:32] LABS: COMPLETE YES; POLYCHROMASIA 1+
[2016-12-09 06:41] LABS: BUN/CREATININE RATIO 19.1 (10-20); CALCIUM 7.9 mg/dl (8.5-10.1); CREATININE 0.88 mg/dl (0.60-1.40); MAGNESIUM 2.2 mg/dl (1.8-2.4); POTASSIUM 2.9 mmol/L (3.5-5.1)
--- NOTE | 2016-12-09 07:12 | DIAGNOSTIC IMAGING REPORT ---
CHEST ONE VIEW PORTABLE HISTORY: 76 years-old Male pneumonia follow-up study in a patient with pneumonia. COMPARISON: Chest radiograph 12/08/2016 TECHNIQUE: Portable upright AP view of the chest FINDINGS: Cardiac silhouette is moderately enlarged. Prior median sternotomy. Surgical clips project over the left heart. Atherosclerosis of the aorta. Endotracheal tube terminates 4.4 cm superior to the bisi. Right-sided PICC is again seen with distal tip terminating in the region of the right atrium. Pulmonary vascular congestion is noted with bilateral mixed interstitial and alveolar opacities within the perihilar predominant distribution, unchanged from comparison. There are patchy alveolar opacities of the lung bases with blunting of the costophrenic angles which also appears unchanged. Bones are grossly intact. IMPRESSION: 1. Stable positioning of endotracheal tube. 2. Cardiomegaly with unchanged appearance of pulmonary edema with small pleural effusions and bibasilar consolidative opacities suggesting associated atelectasis or pneumonia. The above report was generated using voice recognition software. It may contain grammatical, syntax or spelling errors. Electronically signed by: Gio Allen M.D. 12/09/2016 7:10 AM Dictated Date/Time: 12/09/2016 7:07 AM
[2016-12-09] MEDS ORDERED: POTASSIUM CHLORIDE 20 MEQ/15 ML UDC NG ONE (07:45)
[2016-12-09] MEDS: AMIODARONE 200 MG TAB PO SCH (07:52)
[2016-12-09] MEDS: CYANOCOBALAMIN 100 MCG TAB (VIT B-12) PO SCH (07:52)
[2016-12-09] MEDS: FLUTICASONE PROPIONATE NA SPR 16 GM BTL SCH (07:52)
[2016-12-09] MEDS: POTASSIUM CHLORIDE 20MEQ/15ML 473ML PO SCH ×2 (07:53→19:43)
[2016-12-09] MEDS: FLUTICASONE/SALMETEROL 250/50 (ADVAIR) 14 PUFF/1 INHALER INH SCH ×2 (07:53→19:41)
[2016-12-09] MEDS: POTASSIUM CHLR 20 MEQ / WTR 20 MEQ in PREMIXED WATER 100 ML IV SCH ×2 (07:53→09:20)
[2016-12-09] MEDS: METOPROLOL TARTRATE 100 MG TAB PO SCH ×2 (07:53→19:44)
[2016-12-09] MEDS: FUROSEMIDE 40 MG TAB PO SCH ×2 (07:53→15:54)
[2016-12-09] MEDS: ASPIRIN 81 MG CHEW PO SCH (07:54)
[2016-12-09] MEDS: PANTOprazole INJ 40 MG in SYRINGE 0 ML IV SCH (07:55)
[2016-12-09] MEDS: METHYLPREDNISOLONE IV 40 MG in SYRINGE 0 ML IV SCH ×2 (07:55→19:43)
[2016-12-09] MEDS ORDERED: FUROSEMIDE INJ 40 MG in SYRINGE 0 ML IV ONE (08:45)
[2016-12-09] MEDS ORDERED: FUROSEMIDE 40 MG/4 ML VIAL ONE (08:48)
[2016-12-09] MEDS ORDERED: NURSING VERBAL MED ORDER ONE ×2 (09:00→17:00)
[2016-12-09] MEDS: POLYETHYLENE (MIRALAX) 17 GM PACK PO SCH (09:20)
[2016-12-09] MEDS ORDERED: ALBUT/IPRATROP 3MG/0.5MG NEB 3 ML VIAL INH PRN (11:00)
[2016-12-09] MEDS: ALBUT/IPRATROP 3MG/0.5MG NEB 3 ML VIAL INH SCH ×3 (12:00→19:05)
[2016-12-09] MEDS: CEFEPIME IV 2,000 MG in SYRINGE 7.5 ML IV SCH ×2 (12:48→21:21)
--- NOTE | 2016-12-09 13:22 | Critical Care Progress Note ---
Critical Care Progress Note Date of Service Dec 09, 2016. Attending Dr. Tavarez Subjective In summary, the patient is a 76 year old gentleman with history of atrial fibrillation on Xarelto, coronary artery disease, status post CABG, hypertension, hyperlipidemia, CHF, COPD on 2 L of oxygen, SANDOR on CPAP at night who was brought to [facility] for unresponsiveness while signing AMA from rehabilitation facility. As per his , patient suffered a right acetabular fracture on 11/05. He underwent total hip arthroplasty at [facility] on 11/08/2016. Postoperatively patient was transferred to [facility] for rehabilitation. Over there, patient was diagnosed with pneumonia and treated with Augmentin. Patient required oxygen per nasal cannula. He was somewhat confused and short of breath while signing [employer]INST [employer]ICAL [employer]VICE. Patient was transferred in the wheelchair to his car off oxygen. He managed to get into the vehicle and immediately slumped over and became unresponsive. He was no witnessed seizure. Ambulance was called, patient was brought to [facility]. She required to be intubated as he was hypoxic and was not able to protect his airways adequately. Patient was transferred critically ill to surgical intensive care unit for further evaluation. Uneventful night. No fever, chills, chest pain, abdominal pain or diarrhea. Less secretions suctioned with bagging. Objective General appearance: Morbidly obese, Well-developed, well-nourished, no apparent distress while on sedation, able to open eyes Head: Normocephalic, atraumatic ENT: Endotracheal tube is in situ Neck: Supple, unable to assess JVD due to neck thickness Respiratory/Chest: decreased breath sounds at the bases bilaterally, scattered rhonchi bilaterally. Cardiovascular: irregular rate and rhythm, no murmurs heard, normal S1-S2 Abdomen/GI: Normal bowel sounds, non-tender, soft, bowel sounds present Extremities/Musculoskeletal: 2+ pitting edema bilaterally, more on the right side. Weak peripheral pulses. Lower abdomen and hip incisions are clean, no infection. Skin: Normal color, warm/dry, no rash Neurologically: Patient is more awake, communicative off sedation, moves extremities. Current SOFA Score SOFA Score Response (Comments) Value Platelets (x10) > 150 0 Bilirubin (mg/dL) < 1.2 0 Vanessa Coma Score 15 0 Level of Hypotension No Hypotension 0 Creatinine (mg/dL) < 1.2 0 Total 0 Assessment & Plan 1. Acute respiratory failure likely multifactorial secondary to pneumonia and COPD exacerbation. Patient tolerated procedure weaning well so I proceeded with extubation. We'll implement aggressive pulmonary toilet with incentive spirometry. 2. Pneumonia. Cultures are negative. We'll change antibiotics to cefepime, add azithromycin for 5 days. 3. COPD for what will continue with nebulizers. We'll continue with short course of IV Solu Medrol. 4. Metabolic encephalopathy has improved, follow simple commands, moves all extremities. 5. Coronary artery disease, history of CABG. No signs of ischemia. Echocardiography revealed good left ventricular function, right ventricular cavity dilated, slightly decreased function. We will continue with aspirin and metoprolol. 6. Atrial fibrillation, heart rate is controlled with metoprolol, amiodarone and Cardizem. Anticoagulation with Xarelto. 7. Status post recent total right hip arthroplasty. Incisions are well healing. We'll consult physical therapy to help with mobility following keep replacement. 8. Renal function is adequate. We'll continue with daily scheduled Lasix, give additional dose of Lasix. 9. GI: We will obtain swallow evaluation 10. Neurologically: Improvement of encephalopathy. Patient moves all extremities, no obvious deficits. 11. Patient is full code. I updated patient's about his clinical condition and further management plan. I spent totally 35 minutes of critical care time evaluating and managing this patient. HAMILTON II Score Date Score Was Generated: Dec 07, 2016 Consults & Procedures Consultants: Critical care medicine. Procedures: Intubation on 11/06/2016. Data Medications: Current Inpatient Medications Medications (Trade) Dose Ordered Sig/Janee Route Start Time Stop Time Status Last Admin Dose Admin Ioversol (Optiray 320) 125 ml UD PRN IV 12/06/16 12:00 12/10/16 11:59 Glucose (Glucose 40% Gel) 15-30 GRAMS 15 GRAMS... UD PRN PO 12/06/16 14:45 01/05/17 14:44 Glucose (Glucose Chew Tab) 4-8 Tablets 4 Tabl... UD PRN PO 12/06/16 14:45 01/05/17 14:44 Dextrose (Dextrose 50% 50ML Syringe) 25-50ML OF 50% DW IV FOR... UD PRN IV 12/06/16 14:45 01/05/17 14:44 Glucagon (Glucagon Inj) 1 mg UD PRN SQ 12/06/16 14:45 01/05/17 14:44 Insulin Aspart (novoLOG ASPART) SLIDING SCALE If C... Q6 SC 12/07/16 00:00 01/06/17 00:00 Amiodarone HCl (Cordarone Tab) 200 mg DAILY PO 12/07/16 09:00 01/06/17 08:59 12/09/16 07:52 200 MG Cyanocobalamin (Vitamin B-12 Tab) 100 mcg DAILY PO 12/07/16 09:00 01/06/17 08:59 12/09/16 07:52 100 MCG Salmeterol Xinafoate/ Fluticasone (Advair Diskus 250/50 Inh) 1 puff BID INH 12/07/16 09:00 01/06/17 08:59 Fluticasone Propionate (Flonase Nasal [place]) 1 sprays DAILY NA 12/07/16 09:00 01/06/17 08:59 12/09/16 07:52 1 SPRAYS Furosemide (Lasix Tab) 40 mg QDD PO 12/07/16 16:30 01/06/17 16:29 12/08/16 15:53 40 MG Furosemide (Lasix Tab) 80 mg QAM PO 12/07/16 09:00 01/06/17 08:59 12/09/16 07:53 80 MG Latanoprost (Xalatan Oph Soln) 1 drops HS OPL 12/07/16 21:00 01/06/17 20:59 12/08/16 19:45 1 DROPS Metoprolol Tartrate (Lopressor Tab) 100 mg BID PO 12/07/16 09:00 01/06/17 08:59 12/09/16 07:53 100 MG Rivaroxaban (Xarelto Tab) 20 mg HS PO 12/07/16 21:00 01/06/17 20:59 12/08/16 19:47 20 MG Senna/Docusate Sodium (Senokot S Tab) 1 tab QDL PRN PO 12/07/16 00:30 01/06/17 00:29 Simvastatin (Zocor Tab) 10 mg QPM PO 12/07/16 21:00 01/06/17 20:59 12/08/16 19:48 10 MG Pantoprazole Sodium 40 mg/ Syringe 10 ml @ 5 mls/min DAILY@0900 IV 12/07/16 09:00 01/06/17 08:59 12/09/16 07:55 5 MLS/MIN Aspirin (Aspirin Chew) 81 mg QAM PO 12/07/16 09:00 01/06/17 08:59 12/09/16 07:54 81 MG Diltiazem HCl (Cardizem Tab) 60 mg Q6H PO 12/07/16 10:00 01/06/17 09:59 12/09/16 07:52 60 MG Propofol (Diprivan Iv Emulsion 100ml Vial) 1 dose UD PRN IV 12/07/16 17:30 12/10/16 17:29 12/08/16 06:44 1 DOSE Methylprednisolone Sodium Succinate 40 mg/Syringe 0.64 ml @ 1.5 mls/min Q12 IV 12/08/16 21:00 01/07/17 20:59 12/09/16 07:55 1.5 MLS/MIN Potassium Chloride (Zehra Ciel Elix) 10 meq BID PO 12/08/16 10:00 01/07/17 09:59 12/09/16 07:53 10 MEQ Enteral Nutritional Formula (Peptamen Intense VHP) 1,000 ml UD PRN OG 12/08/16 09:45 01/07/17 09:44 12/08/16 12:39 1,000 ML Guaifenesin (Robitussin Sugar Free Syrup) 100 mg Q6H NG 12/08/16 14:00 01/07/17 13:59 12/09/16 12:48 100 MG Lorazepam (Ativan Inj) 1 mg Q2H PRN IV 12/08/16 22:30 01/07/17 22:29 12/08/16 23:10 1 MG Cefepime HCl 2000 mg/Syringe 20 ml @ 5 mls/min Q8@0600,1400,2200 IV 12/09/16 13:00 12/13/16 13:59 12/09/16 12:48 5 MLS/MIN Polyethylene (Miralax Powder Packet) 17 gm QAM PO 12/09/16 09:00 01/08/17 08:59 12/09/16 09:20 17 GM Albuterol/ Ipratropium (Duoneb) 3 ml QIDR INH 12/09/16 12:00 01/08/17 11:59 Albuterol/ Ipratropium (Duoneb) 3 ml Q4 PRN INH 12/09/16 11:00 01/08/17 10:59 Vital Signs: Date Time Temp Pulse Resp B/P (MAP) Pulse Ox O2 Delivery O2 Flow Rate FiO2 12/09/16 12:00 108 16 136/91 (106) 96 Nasal Cannula 4.0 12/09/16 12:00 Nasal Cannula 4.0 12/09/16 10:53 100 22 96 Nasal Cannula 4.0 12/09/16 10:00 37.3 106 16 148/84 (105) 96 Nasal Cannula 4.0 12/09/16 08:00 30 12/09/16 08:00 37.1 107 16 138/86 (103) 96 Mechanical Ventilator 30 12/09/16 08:00 Mechanical Ventilator 30 12/09/16 08:00 Mechanical Ventilator 30 12/09/16 07:28 30 12/09/16 06:00 110 16 152/95 (114) 95 Mechanical Ventilator 30 12/09/16 05:16 30 12/09/16 04:00 94 Mechanical Ventilator 30 12/09/16 04:00 37.1 108 16 145/92 (109) 94 Mechanical Ventilator 30 12/09/16 04:00 30 12/09/16 02:18 30 12/09/16 02:00 102 16 128/83 (98) 97 Mechanical Ventilator 30 12/09/16 00:01 37.0 92 16 142/89 (106) 97 Mechanical Ventilator 30 12/08/16 23:59 97 Mechanical Ventilator 30 12/08/16 23:59 30 12/08/16 23:08 30 12/08/16 22:00 95 16 119/66 (83) 94 Mechanical Ventilator 30 12/08/16 20:00 30 12/08/16 20:00 37.0 100 16 131/81 (98) 95 Mechanical Ventilator 30 12/08/16 20:00 95 Mechanical Ventilator 30 12/08/16 19:34 30 12/08/16 18:00 100 16 125/76 (92) 95 Mechanical Ventilator 30 12/08/16 17:51 30 12/08/16 16:00 94 Mechanical Ventilator 35 12/08/16 16:00 30 12/08/16 16:00 37.5 110 16 105/78 (87) 93 Mechanical Ventilator 35 12/08/16 14:57 35 12/08/16 14:38 35 12/08/16 14:21 96 16 137/73 (94) 99 CPAP 35 Mechanical Ventilator Laboratory Results: Last 24 Hours Test 12/08/16 17:31 12/08/16 23:15 12/09/16 05:50 12/09/16 05:59 Bedside Glucose 157 mg/dl 133 mg/dl 176 mg/dl White Blood Count 5.61 K/uL Red Blood Count 3.06 M/uL Hemoglobin 8.5 g/dL Hematocrit 26.7 % Mean Corpuscular Volume 87.3 fL Mean Corpuscular Hemoglobin 27.8 pg Mean Corpuscular Hemoglobin Concent 31.8 g/dl Platelet Count 224 K/uL Mean Platelet Volume 9.6 fL Neutrophils (%) (Auto) 85.3 % Lymphocytes (%) (Auto) 6.6 % Monocytes (%) (Auto) 5.2 % Eosinophils (%) (Auto) 0.0 % Basophils (%) (Auto) 0.0 % Neutrophils # (Auto) 4.79 K/uL Lymphocytes # (Auto) 0.37 K/uL Monocytes # (Auto) 0.29 K/uL Eosinophils # (Auto) 0.00 K/uL Basophils # (Auto) 0.00 K/uL RDW Standard Deviation 46.8 fL RDW Coefficient of Variation 14.9 % Immature Granulocyte % (Auto) 2.9 % Immature Granulocyte # (Auto) 0.16 K/uL Nucleated RBC Absolute Count (auto) 0.06 K/uL Nucleated Red Blood Cells % 1.1 % Polychromasia 1+ Sodium Level 134 mmol/L Potassium Level 2.9 mmol/L Chloride Level 93 mmol/L Carbon Dioxide Level 37 mmol/L Anion Gap 4.0 mmol/L Blood Urea Nitrogen 17 mg/dl Creatinine 0.88 mg/dl Est Creatinine Clear Calc Drug Dose 86.7 ml/min Estimated GFR () 95.4 Estimated GFR (Non- 82.3 BUN/Creatinine Ratio 19.1 Random Glucose 167 mg/dl Calcium Level 7.9 mg/dl Phosphorus Level 2.9 mg/dl Magnesium Level 2.2 mg/dl Total Bilirubin 0.6 mg/dl Direct Bilirubin 0.4 mg/dl Aspartate Amino Transf (AST/SGOT) 21 U/L Alanine Aminotransferase (ALT/SGPT) 33 U/L Alkaline Phosphatase 119 U/L Total Protein 6.0 gm/dl Albumin 1.7 gm/dl
[2016-12-09 15:06] LABS: BUN/CREATININE RATIO 22.4 (10-20); CALCIUM 8.2 mg/dl (8.5-10.1); CREATININE 0.86 mg/dl (0.60-1.40); POTASSIUM 3.6 mmol/L (3.5-5.1)
[2016-12-09] MEDS: LATANOPROST 0.005% OP SOLN 2.5 ML BTL OPL SCH (19:43)
[2016-12-09] MEDS: RIVAROXABAN 10 MG TAB PO SCH (19:44)
[2016-12-09] MEDS: SIMVASTATIN 10 MG TAB PO SCH (19:44)
[2016-12-09] MEDS: LORAZEPAM 2 MG/ML 1 ML VIAL IV PRN (20:18)
--- NOTE | 2016-12-09 20:48 | Progress Note ---
Subjective Date of Service: Dec 09, 2016. Subjective Pt evaluation today including: conversation w/ patient, physical exam, chart review, lab review, review of studies (cxr), review of inpatient medication list Pain: denies cp, abd pain PO Intake: tolerating clears Voiding: griffith catheter in place tele - a. fib, rates > 100 I saw the patient post-extubation c/o cough and mild dyspnea but otherwise stated "I feel better" he confirmed he is on 2 L NC O2 at all times at home Problem List Medical Problems: (1) Atrial fibrillation with rapid ventricular response Status: Acute (2) Bilateral pneumonia Status: Acute (3) Cardiac ischemia Status: Acute (4) Pulmonary congestion Status: Acute (5) Respiratory failure Status: Acute (6) Right acetabular fracture Status: Acute Review of Systems Constitutional: No fever Cardiac: No chest pain Abdomen: No pain Objective Vital Signs Date Time Temp Pulse Resp B/P (MAP) Pulse Ox O2 Delivery O2 Flow Rate FiO2 12/09/16 19:06 109 17 96 Nasal Cannula 4.0 12/09/16 18:06 118 22 96 Nasal Cannula 4.0 12/09/16 16:00 Nasal Cannula 4.0 12/09/16 16:00 37.3 130 24 133/88 (103) 94 Nasal Cannula 4.0 12/09/16 14:38 119 22 96 Nasal Cannula 4.0 12/09/16 14:01 115 16 96 Nasal Cannula 4.0 12/09/16 12:00 108 16 136/91 (106) 96 Nasal Cannula 4.0 12/09/16 12:00 Nasal Cannula 4.0 12/09/16 10:53 100 22 96 Nasal Cannula 4.0 12/09/16 10:00 37.3 106 16 148/84 (105) 96 Nasal Cannula 4.0 12/09/16 08:00 30 12/09/16 08:00 37.1 107 16 138/86 (103) 96 Mechanical Ventilator 30 12/09/16 08:00 Mechanical Ventilator 30 12/09/16 08:00 Mechanical Ventilator 30 12/09/16 07:28 30 12/09/16 06:00 110 16 152/95 (114) 95 Mechanical Ventilator 30 12/09/16 05:16 30 12/09/16 04:00 94 Mechanical Ventilator 30 12/09/16 04:00 37.1 108 16 145/92 (109) 94 Mechanical Ventilator 30 12/09/16 04:00 30 12/09/16 02:18 30 12/09/16 02:00 102 16 128/83 (98) 97 Mechanical Ventilator 30 12/09/16 00:01 37.0 92 16 142/89 (106) 97 Mechanical Ventilator 30 12/08/16 23:59 97 Mechanical Ventilator 30 12/08/16 23:59 30 12/08/16 23:08 30 12/08/16 22:00 95 16 119/66 (83) 94 Mechanical Ventilator 30 Physical Exam General Appearance: no apparent distress, + obese ENT: pharynx normal Neck: + JVD Respiratory/Chest: no respiratory distress, no accessory muscle use, + rales ( scant, bases), + rhonchi, + wheezing Cardiovascular: no gallop, no murmur, + tachycardia, + irregularly irregular Abdomen: normal bowel sounds, non tender, soft, no organomegaly Extremities: + pedal edema, + swelling (1-2+ b/l but improved) Neurologic/Psychiatric: alert, oriented x 3 Laboratory Results Last 24 Hours Test 12/08/16 23:15 12/09/16 05:50 12/09/16 05:59 12/09/16 12:52 Bedside Glucose 133 mg/dl 176 mg/dl 142 mg/dl White Blood Count 5.61 K/uL Red Blood Count 3.06 M/uL Hemoglobin 8.5 g/dL Hematocrit 26.7 % Mean Corpuscular Volume 87.3 fL Mean Corpuscular Hemoglobin 27.8 pg Mean Corpuscular Hemoglobin Concent 31.8 g/dl Platelet Count 224 K/uL Mean Platelet Volume 9.6 fL Neutrophils (%) (Auto) 85.3 % Lymphocytes (%) (Auto) 6.6 % Monocytes (%) (Auto) 5.2 % Eosinophils (%) (Auto) 0.0 % Basophils (%) (Auto) 0.0 % Neutrophils # (Auto) 4.79 K/uL Lymphocytes # (Auto) 0.37 K/uL Monocytes # (Auto) 0.29 K/uL Eosinophils # (Auto) 0.00 K/uL Basophils # (Auto) 0.00 K/uL RDW Standard Deviation 46.8 fL RDW Coefficient of Variation 14.9 % Immature Granulocyte % (Auto) 2.9 % Immature Granulocyte # (Auto) 0.16 K/uL Nucleated RBC Absolute Count (auto) 0.06 K/uL Nucleated Red Blood Cells % 1.1 % Polychromasia 1+ Sodium Level 134 mmol/L Potassium Level 2.9 mmol/L Chloride Level 93 mmol/L Carbon Dioxide Level 37 mmol/L Anion Gap 4.0 mmol/L Blood Urea Nitrogen 17 mg/dl Creatinine 0.88 mg/dl Est Creatinine Clear Calc Drug Dose 86.7 ml/min Estimated GFR () 95.4 Estimated GFR (Non- 82.3 BUN/Creatinine Ratio 19.1 Random Glucose 167 mg/dl Calcium Level 7.9 mg/dl Phosphorus Level 2.9 mg/dl Magnesium Level 2.2 mg/dl Total Bilirubin 0.6 mg/dl Direct Bilirubin 0.4 mg/dl Aspartate Amino Transf (AST/SGOT) 21 U/L Alanine Aminotransferase (ALT/SGPT) 33 U/L Alkaline Phosphatase 119 U/L Total Protein 6.0 gm/dl Albumin 1.7 gm/dl Test 12/09/16 14:36 12/09/16 16:35 Sodium Level 134 mmol/L Potassium Level 3.6 mmol/L Chloride Level 94 mmol/L Carbon Dioxide Level 37 mmol/L Anion Gap 3.0 mmol/L Blood Urea Nitrogen 19 mg/dl Creatinine 0.86 mg/dl Est Creatinine Clear Calc Drug Dose 88.7 ml/min Estimated GFR () 96.3 Estimated GFR (Non- 83.1 BUN/Creatinine Ratio 22.4 Random Glucose 140 mg/dl Calcium Level 8.2 mg/dl Bedside Glucose 176 mg/dl Assessment and Plan 76yo male: 1. acute hypoxic/hypercarbic respiratory failure - likely combination of pneumonia + CHF. Improving, s/p extubation today to NC O2. 2. b/l pneumonia - MRSA vs gram negative etiology possible. Remains on triple IV abx including levaquin, zosyn, and vancomycin. Day #4 of such. Cont supportive care, pulmonary toilet, nebs, etc. CXR today again stable. 3. acute/chronic right-sided heart failure with diastolic dysfunction - agree with ongoing diuresis. 4. a. fib with RVR - rates still fast at rest, but this may be compensatory for lung disease. Remains on xarelto for anticoagulation. Amiodarone also on board but clearly not keeping in NSR. Could be used for rate control, however. Cont BB and CCB. 5. recent acetabulum fracture s/p repair at [facility] - noted. 6. hypokalemia - replaced today, now normal. 7. HTN - controlled with current regimen of medications. 8. CAD - no evidence of ischemia at this time. Troponins negative. 9. T2DM - glycemic control per ICU. FSBS q6h. Control adequate. 10. COPD with probable exacerbation - agree with IV steroids; diurese. Nebs etc. 11. DVT proph - xarelto. 12. FEN - clears, advance as tolerated; bmp/mag in am. 13. severe protein calorie malnutrition - add boost glucose control, MVI, etc. 14. anemia - appears acute/chronic - consider transfusion if Hb < 7.5 and in light of critical status but H/H have leveled out today. PT, OT when able observe in ICU overnight - tele status tomorrow? Continued [facility] stay due to: abnormal vital signs, inadequate po fluid intake, voiding difficulties, ambulation difficulties, multiple IV medications needed, other Discharge planning: uncertain
[2016-12-10] VITALS (27 sets, daily range): BP systolic 102–152; BP diastolic 54–99; PULSE 98–150; TEMP 36.7–37.1; O2SAT 77–98
[2016-12-10] MEDS: DILTIAZEM HCL 60 MG TAB PO SCH (03:09)
[2016-12-10] MEDS: GUAIFENESIN SUGAR FREE 100 MG/5 ML UDC NG SCH ×2 (03:09→07:49)
[2016-12-10] MEDS: CEFEPIME IV 2,000 MG in SYRINGE 7.5 ML IV SCH ×3 (05:35→21:31)
[2016-12-10] MEDS: LORAZEPAM 2 MG/ML 1 ML VIAL IV PRN (06:20)
[2016-12-10 06:32] LABS: HEMATOCRIT 28.6 % (42-52); MEAN CELL VOLUME 88.5 fL (80-100); MEAN CORPUSCULAR HEMOGLOBIN 27.2 pg (25-34); MEAN CORPUSCULAR HGB CONC 30.8 g/dl (32-36); MEAN PLATELET VOLUME 9.9 fL (7.4-10.4); PLATELET COUNT 303 K/uL (130-400); RED BLOOD COUNT 3.23 M/uL (4.7-6.1); WHITE BLOOD COUNT 8.44 K/uL (4.8-10.8)
[2016-12-10] MEDS: INSULIN ASPART 100 UNITS/ML 3 ML PEN SC SCH ×4 (06:45→20:52)
[2016-12-10 06:55] LABS: BUN/CREATININE RATIO 23.7 (10-20); CALCIUM 8.3 mg/dl (8.5-10.1); CREATININE 0.86 mg/dl (0.60-1.40); MAGNESIUM 2.4 mg/dl (1.8-2.4); POTASSIUM 3.6 mmol/L (3.5-5.1)
[2016-12-10] MEDS: BOOST GLUCOSE CONTROL PO SCH ×3 (07:49→16:30)
[2016-12-10] MEDS: METHYLPREDNISOLONE IV 40 MG in SYRINGE 0 ML IV SCH ×2 (07:49→20:24)
[2016-12-10] MEDS: FLUTICASONE/SALMETEROL 250/50 (ADVAIR) 14 PUFF/1 INHALER INH SCH ×2 (07:49→20:23)
[2016-12-10] MEDS: ASPIRIN 81 MG CHEW PO SCH (07:49)
[2016-12-10] MEDS: FLUTICASONE PROPIONATE NA SPR 16 GM BTL SCH (07:49)
[2016-12-10] MEDS: CEROVITE ADV FORMULA TAB PO SCH (07:49)
[2016-12-10] MEDS: POTASSIUM CHLORIDE 20MEQ/15ML 473ML PO SCH ×2 (07:50→20:25)
[2016-12-10] MEDS: CYANOCOBALAMIN 100 MCG TAB (VIT B-12) PO SCH (07:50)
[2016-12-10] MEDS: AMIODARONE 200 MG TAB PO SCH (07:50)
[2016-12-10] MEDS: METOPROLOL TARTRATE 100 MG TAB PO SCH ×2 (07:50→20:34)
[2016-12-10] MEDS: POLYETHYLENE (MIRALAX) 17 GM PACK PO SCH (07:51)
[2016-12-10] MEDS: FUROSEMIDE 40 MG TAB PO SCH ×2 (07:51→16:30)
[2016-12-10] MEDS: ALBUT/IPRATROP 3MG/0.5MG NEB 3 ML VIAL INH SCH ×4 (08:20→20:14)
--- NOTE | 2016-12-10 08:26 | Critical Care Progress Note ---
Critical Care Progress Note Date of Service Dec 10, 2016. Attending Dr. Tavarez Subjective In summary, the patient is a 76 year old gentleman with history of atrial fibrillation on Xarelto, coronary artery disease, status post CABG, hypertension, hyperlipidemia, CHF, COPD on 2 L of oxygen, SANDOR on CPAP at night who was brought to [facility] for unresponsiveness while signing AMA from rehabilitation facility. As per his , patient suffered a right acetabular fracture on 11/05. He underwent total hip arthroplasty at [facility] on 11/08/2016. Postoperatively patient was transferred to [facility] for rehabilitation. Over there, patient was diagnosed with pneumonia and treated with Augmentin. Patient required oxygen per nasal cannula. He was somewhat confused and short of breath while signing [employer]INST [employer]ICAL [employer]ICE. Patient was transferred in the wheelchair to his car off oxygen. He managed to get into the vehicle and immediately slumped over and became unresponsive. He was no witnessed seizure. Ambulance was called, patient was brought to [facility]. She required to be intubated as he was hypoxic and was not able to protect his airways adequately. Patient was transferred critically ill to surgical intensive care unit for further evaluation. Uneventful night. No fever, chills, chest pain, abdominal pain or diarrhea. Less secretions suctioned with bagging. Objective General appearance: Morbidly obese, Well-developed, well-nourished, no apparent distress while on sedation, able to open eyes Head: Normocephalic, atraumatic ENT: Endotracheal tube is in situ Neck: Supple, unable to assess JVD due to neck thickness Respiratory/Chest: decreased breath sounds at the bases bilaterally, scattered rhonchi bilaterally. Cardiovascular: irregular rate and rhythm, no murmurs heard, normal S1-S2 Abdomen/GI: Normal bowel sounds, non-tender, soft, bowel sounds present Extremities/Musculoskeletal: 2+ pitting edema bilaterally, more on the right side. Weak peripheral pulses. Lower abdomen and hip incisions are clean, no infection. Skin: Normal color, warm/dry, no rash Neurologically: Patient is more awake, communicative off sedation, moves extremities. Current SOFA Score SOFA Score Response (Comments) Value Platelets (x10) > 150 0 Bilirubin (mg/dL) < 1.2 0 Vanessa Coma Score 15 0 Level of Hypotension No Hypotension 0 Creatinine (mg/dL) < 1.2 0 Total 0 Assessment & Plan 1. Acute respiratory failure likely multifactorial secondary to pneumonia and COPD exacerbation. Patient tolerated procedure weaning well so I proceeded with extubation. We'll implement aggressive pulmonary toilet with incentive spirometry. 2. Pneumonia. Cultures are negative. We'll change antibiotics to cefepime, add azithromycin for 5 days. 3. COPD for what will continue with nebulizers. We'll continue with short course of IV Solu Medrol. 4. Metabolic encephalopathy has improved, follow simple commands, moves all extremities. 5. Coronary artery disease, history of CABG. No signs of ischemia. Echocardiography revealed good left ventricular function, right ventricular cavity dilated, slightly decreased function. We will continue with aspirin and metoprolol. 6. Atrial fibrillation, heart rate is controlled with metoprolol, amiodarone and Cardizem. Anticoagulation with Xarelto. 7. Status post recent total right hip arthroplasty. Incisions are well healing. We'll consult physical therapy to help with mobility following keep replacement. 8. Renal function is adequate. We'll continue with daily scheduled Lasix, give additional dose of Lasix. 9. GI: We will obtain swallow evaluation 10. Neurologically: Improvement of encephalopathy. Patient moves all extremities, no obvious deficits. 11. Patient is full code. I updated patient's about his clinical condition and further management plan. I spent totally 35 minutes of critical care time evaluating and managing this patient. [place] II Score Date Score Was Generated: Dec 07, 2016 Consults & Procedures Consultants: Critical care medicine. Procedures: Intubation on 11/06/2016. Data Medications: Current Inpatient Medications Medications (Trade) Dose Ordered Sig/Janee Route Start Time Stop Time Status Last Admin Dose Admin Ioversol (Optiray 320) 125 ml UD PRN IV 12/06/16 12:00 12/10/16 11:59 Glucose (Glucose 40% Gel) 15-30 GRAMS 15 GRAMS... UD PRN PO 12/06/16 14:45 01/05/17 14:44 Glucose (Glucose Chew Tab) 4-8 Tablets 4 Tabl... UD PRN PO 12/06/16 14:45 01/05/17 14:44 Dextrose (Dextrose 50% 50ML Syringe) 25-50ML OF 50% DW IV FOR... UD PRN IV 12/06/16 14:45 01/05/17 14:44 Glucagon (Glucagon Inj) 1 mg UD PRN SQ 12/06/16 14:45 01/05/17 14:44 Amiodarone HCl (Cordarone Tab) 200 mg DAILY PO 12/07/16 09:00 01/06/17 08:59 12/10/16 07:50 200 MG Cyanocobalamin (Vitamin B-12 Tab) 100 mcg DAILY PO 12/07/16 09:00 01/06/17 08:59 12/10/16 07:50 100 MCG Salmeterol Xinafoate/ Fluticasone (Advair Diskus 250/50 Inh) 1 puff BID INH 12/07/16 09:00 01/06/17 08:59 12/10/16 07:49 1 PUFF Fluticasone Propionate (Flonase Nasal [place]) 1 sprays DAILY NA 12/07/16 09:00 01/06/17 08:59 12/10/16 07:49 1 SPRAYS Furosemide (Lasix Tab) 40 mg QDD PO 12/07/16 16:30 01/06/17 16:29 12/09/16 15:54 40 MG Furosemide (Lasix Tab) 80 mg QAM PO 12/07/16 09:00 01/06/17 08:59 12/10/16 07:51 80 MG Latanoprost (Xalatan Oph Soln) 1 drops HS OPL 12/07/16 21:00 01/06/17 20:59 12/09/16 19:43 1 DROPS Metoprolol Tartrate (Lopressor Tab) 100 mg BID PO 12/07/16 09:00 01/06/17 08:59 12/10/16 07:50 100 MG Rivaroxaban (Xarelto Tab) 20 mg HS PO 12/07/16 21:00 01/06/17 20:59 12/09/16 19:44 20 MG Senna/Docusate Sodium (Senokot S Tab) 1 tab QDL PRN PO 12/07/16 00:30 01/06/17 00:29 Simvastatin (Zocor Tab) 10 mg QPM PO 12/07/16 21:00 01/06/17 20:59 12/09/16 19:44 10 MG Aspirin (Aspirin Chew) 81 mg QAM PO 12/07/16 09:00 01/06/17 08:59 12/10/16 07:49 81 MG Diltiazem HCl (Cardizem Tab) 60 mg Q6H PO 12/07/16 10:00 01/06/17 09:59 12/10/16 03:09 60 MG Methylprednisolone Sodium Succinate 40 mg/Syringe 0.64 ml @ 1.5 mls/min Q12 IV 12/08/16 21:00 01/07/17 20:59 12/10/16 07:49 1.5 MLS/MIN Potassium Chloride (Zehra Ciel Elix) 10 meq BID PO 12/08/16 10:00 01/07/17 09:59 12/10/16 07:50 10 MEQ Guaifenesin (Robitussin Sugar Free Syrup) 100 mg Q6H NG 12/08/16 14:00 01/07/17 13:59 12/10/16 07:49 100 MG Lorazepam (Ativan Inj) 1 mg Q2H PRN IV 12/08/16 22:30 01/07/17 22:29 12/10/16 06:20 1 MG Cefepime HCl 2000 mg/Syringe 20 ml @ 5 mls/min Q8@0600,1400,2200 IV 12/09/16 13:00 12/13/16 13:59 12/10/16 05:35 5 MLS/MIN Polyethylene (Miralax Powder Packet) 17 gm QAM PO 12/09/16 09:00 01/08/17 08:59 12/10/16 07:51 17 GM Albuterol/ Ipratropium (Duoneb) 3 ml QIDR INH 12/09/16 12:00 01/08/17 11:59 12/10/16 08:20 3 ML Albuterol/ Ipratropium (Duoneb) 3 ml Q4 PRN INH 12/09/16 11:00 01/08/17 10:59 Insulin Aspart (novoLOG ASPART) SLIDING SCALE If C... ACHS SC 12/09/16 21:00 01/08/17 20:59 Enteral Nutritional Formula (Boost Glucose Control) 1 can TIDM PO 12/10/16 07:15 01/09/17 07:14 12/10/16 07:49 1 CAN Multivitamins/ Minerals (Multivitamin W/ Minerals Tab) 1 tab QAM PO 12/10/16 09:00 01/09/17 08:59 12/10/16 07:49 1 TAB Heparin Sodium (Porcine) (Heparin 10 Unit/ ml 5 ml Flush) 5 ml PRN PRN FLUSH 12/10/16 02:45 01/09/17 02:44 Vital Signs: Date Time Temp Pulse Resp B/P (MAP) Pulse Ox O2 Delivery O2 Flow Rate FiO2 12/10/16 06:00 122 22 120/99 (106) 95 12/10/16 05:00 122 27 126/99 (108) 91 12/10/16 04:03 96 High Flow Oxygen 40.0 40 12/10/16 04:00 37.0 115 20 141/92 (108) 95 High Flow Oxygen 40.0 40 12/10/16 03:00 114 20 138/95 (109) 96 12/10/16 02:00 113 20 146/85 (105) 94 12/10/16 01:24 98 20 136/95 (109) 96 12/10/16 01:00 103 22 136/95 (109) 95 12/10/16 00:00 96 High Flow Oxygen 40.0 40 12/10/16 00:00 36.7 109 28 152/90 (110) 93 12/09/16 23:00 108 24 112/86 (95) 93 12/09/16 22:00 107 19 134/87 (103) 97 12/09/16 21:00 114 19 140/83 (102) 96 12/09/16 20:40 108 21 97 Nasal Cannula 40.0 40 12/09/16 20:28 116 21 124/76 (92) 94 12/09/16 20:00 37.0 119 15 138/100 (113) 96 12/09/16 20:00 96 High Flow Oxygen 40.0 40 12/09/16 19:06 109 17 96 Nasal Cannula 4.0 12/09/16 19:00 127 18 97 12/09/16 18:06 118 22 96 Nasal Cannula 4.0 12/09/16 16:00 Nasal Cannula 4.0 12/09/16 16:00 37.3 130 24 133/88 (103) 94 Nasal Cannula 4.0 12/09/16 14:38 119 22 96 Nasal Cannula 4.0 12/09/16 14:01 115 16 96 Nasal Cannula 4.0 12/09/16 12:00 108 16 136/91 (106) 96 Nasal Cannula 4.0 12/09/16 12:00 Nasal Cannula 4.0 12/09/16 10:53 100 22 96 Nasal Cannula 4.0 12/09/16 10:00 37.3 106 16 148/84 (105) 96 Nasal Cannula 4.0 Laboratory Results: Last 24 Hours Test 12/09/16 12:52 12/09/16 14:36 12/09/16 16:35 12/09/16 20:23 Bedside Glucose 142 mg/dl 176 mg/dl 181 mg/dl Sodium Level 134 mmol/L Potassium Level 3.6 mmol/L Chloride Level 94 mmol/L Carbon Dioxide Level 37 mmol/L Anion Gap 3.0 mmol/L Blood Urea Nitrogen 19 mg/dl Creatinine 0.86 mg/dl Est Creatinine Clear Calc Drug Dose 88.7 ml/min Estimated GFR () 96.3 Estimated GFR (Non- 83.1 BUN/Creatinine Ratio 22.4 Random Glucose 140 mg/dl Calcium Level 8.2 mg/dl Test 12/10/16 05:39 12/10/16 05:42 White Blood Count 8.44 K/uL Red Blood Count 3.23 M/uL Hemoglobin 8.8 g/dL Hematocrit 28.6 % Mean Corpuscular Volume 88.5 fL Mean Corpuscular Hemoglobin 27.2 pg Mean Corpuscular Hemoglobin Concent 30.8 g/dl RDW Standard Deviation 49.3 fL RDW Coefficient of Variation 15.2 % Platelet Count 303 K/uL Mean Platelet Volume 9.9 fL Nucleated RBC Absolute Count (auto) 0.13 K/uL Nucleated Red Blood Cells % 1.5 % Sodium Level 136 mmol/L Potassium Level 3.6 mmol/L Chloride Level 94 mmol/L Carbon Dioxide Level 36 mmol/L Anion Gap 6.0 mmol/L Blood Urea Nitrogen 20 mg/dl Creatinine 0.86 mg/dl Est Creatinine Clear Calc Drug Dose 90.1 ml/min Estimated GFR () 96.3 Estimated GFR (Non- 83.1 BUN/Creatinine Ratio 23.7 Random Glucose 150 mg/dl Calcium Level 8.3 mg/dl Magnesium Level 2.4 mg/dl Bedside Glucose 152 mg/dl
[2016-12-10] MEDS ORDERED: POTASSIUM CHLORIDE 20 MEQ/15 ML UDC PO STA (08:57)
[2016-12-10] MEDS ORDERED: FUROSEMIDE 40 MG/4 ML VIAL IV ONE (09:00)
[2016-12-10] MEDS: DILTIAZEM HCL 180 MG CAPCR PO SCH (11:44)
[2016-12-10] MEDS: GUAIFENESIN 600 MG TABCR PO SCH ×2 (11:45→20:27)
[2016-12-10] MEDS: AZITHROMYCIN 250 MG TAB PO SCH (11:46)
[2016-12-10] MEDS ORDERED: FUROSEMIDE 40 MG/4 ML VIAL ONE (12:08)
--- NOTE | 2016-12-10 15:22 | DIAGNOSTIC IMAGING REPORT ---
RIGHT GREAT TOE 3 VIEWS CLINICAL HISTORY: Right great toe pain NO TRAUMA COMPARISON: None. DISCUSSION: No acute fractures are visualized. There are mild osteoarthritic changes the level the first metatarsal phalangeal joint. Degenerative changes are present the level of the sesamoids, and there is medial sesamoid fragmentation. This is likely chronic as there is no history of trauma IMPRESSION: 1. 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 Mild degenerative changes the level the first metatarsal phalangeal joint Electronically signed by: Toribio Rodriguez M.D. 12/10/2016 3:21 PM Dictated Date/Time: 12/10/2016 3:20 PM
[2016-12-10] MEDS: COLCHICINE 0.6 MG TAB PO SCH ×3 (15:43→17:00)
[2016-12-10] MEDS: LATANOPROST 0.005% OP SOLN 2.5 ML BTL OPL SCH (20:24)
[2016-12-10] MEDS: RIVAROXABAN 10 MG TAB PO SCH (20:35)
[2016-12-10] MEDS: SIMVASTATIN 10 MG TAB PO SCH (20:45)
--- NOTE | 2016-12-10 22:43 | Progress Note ---
Subjective Date of Service: Dec 10, 2016. Subjective Pt evaluation today including: conversation w/ patient, conversation w/ family (), physical exam, chart review, lab review, review of studies (toe x-ray, right great toe), review of inpatient medication list Pain: right great toe - started earlier today PO Intake: improved Voiding: griffith catheter in place tele - uncontrolled a. fib main complaint from him is that of right great toe pain hurts to put pressure on it no prior h/o toe pain +cough with dyspnea Problem List Medical Problems: (1) Atrial fibrillation with rapid ventricular response Status: Acute (2) Bilateral pneumonia Status: Acute (3) Cardiac ischemia Status: Acute (4) Pulmonary congestion Status: Acute (5) Respiratory failure Status: Acute (6) Right acetabular fracture Status: Acute Review of Systems Constitutional: No fever Respiratory: + wheezing, + shortness of breath Cardiac: No chest pain Abdomen: + constipation, No pain Objective Vital Signs Date Time Temp Pulse Resp B/P (MAP) Pulse Ox O2 Delivery O2 Flow Rate FiO2 12/10/16 20:14 105 16 88 Room Air 12/10/16 18:00 116 26 129/54 (79) 12/10/16 17:00 136 28 102/66 (78) 12/10/16 16:00 150 25 126/85 (99) 77 12/10/16 16:00 96 Nasal Cannula 3.0 Humidified Oxygen 12/10/16 15:41 126 16 96 Nasal Cannula 3.0 12/10/16 15:00 119 24 117/85 (96) 95 12/10/16 14:50 150 83 12/10/16 14:00 123 26 136/81 (99) 91 12/10/16 14:00 130 28 117/85 (96) 98 Nasal Cannula 3.0 12/10/16 12:00 127 27 113/80 (91) 96 Nasal Cannula 3.0 12/10/16 12:00 96 Nasal Cannula 3.0 Humidified Oxygen 12/10/16 11:28 122 16 93 Nasal Cannula 4.0 12/10/16 10:00 126 20 142/89 (106) 95 Nasal Cannula 3.0 12/10/16 08:27 125 16 96 Nasal Cannula 4.0 12/10/16 08:00 98 Nasal Cannula 4.0 12/10/16 08:00 37.1 130 22 110/81 (91) 96 Nasal Cannula 4.0 12/10/16 06:00 122 22 120/99 (106) 95 12/10/16 05:00 122 27 126/99 (108) 91 12/10/16 04:03 96 High Flow Oxygen 40.0 40 12/10/16 04:00 37.0 115 20 141/92 (108) 95 High Flow Oxygen 40.0 40 12/10/16 03:00 114 20 138/95 (109) 96 12/10/16 02:00 113 20 146/85 (105) 94 12/10/16 01:24 98 20 136/95 (109) 96 12/10/16 01:00 103 22 136/95 (109) 95 12/10/16 00:00 96 High Flow Oxygen 40.0 40 12/10/16 00:00 36.7 109 28 152/90 (110) 93 12/09/16 23:00 108 24 112/86 (95) 93 Physical Exam General Appearance: no apparent distress, + obese ENT: pharynx normal Neck: no JVD (sitting at 90 degrees) Respiratory/Chest: no respiratory distress, no accessory muscle use, + decreased breath sounds, + wheezing Cardiovascular: no murmur, + tachycardia, + irregularly irregular Abdomen: normal bowel sounds, non tender, no organomegaly, + distended Extremities: + pedal edema, + swelling (1+ b/l) Neurologic/Psychiatric: alert, oriented x 3 Comments: musculo - right great toe - tenderness, swelling, warmth, and modest erythema MTP joint with some extension of erythema distally; prior evidence of partial toenail removal; NO onychia or cellulitis Laboratory Results Last 24 Hours Test 12/10/16 05:39 12/10/16 05:42 12/10/16 12:00 12/10/16 15:31 White Blood Count 8.44 K/uL Red Blood Count 3.23 M/uL Hemoglobin 8.8 g/dL Hematocrit 28.6 % Mean Corpuscular Volume 88.5 fL Mean Corpuscular Hemoglobin 27.2 pg Mean Corpuscular Hemoglobin Concent 30.8 g/dl RDW Standard Deviation 49.3 fL RDW Coefficient of Variation 15.2 % Platelet Count 303 K/uL Mean Platelet Volume 9.9 fL Nucleated RBC Absolute Count (auto) 0.13 K/uL Nucleated Red Blood Cells % 1.5 % Sodium Level 136 mmol/L Potassium Level 3.6 mmol/L Chloride Level 94 mmol/L Carbon Dioxide Level 36 mmol/L Anion Gap 6.0 mmol/L Blood Urea Nitrogen 20 mg/dl Creatinine 0.86 mg/dl Est Creatinine Clear Calc Drug Dose 90.1 ml/min Estimated GFR () 96.3 Estimated GFR (Non- 83.1 BUN/Creatinine Ratio 23.7 Random Glucose 150 mg/dl Calcium Level 8.3 mg/dl Magnesium Level 2.4 mg/dl Vitamin B12 Level 1273 pg/mL Folate 16.10 ng/mL Bedside Glucose 152 mg/dl 137 mg/dl Uric Acid 4.6 mg/dl Test 12/10/16 16:17 12/10/16 20:50 Bedside Glucose 128 mg/dl 121 mg/dl Assessment and Plan 76yo male: 1. acute/chronic hypoxic/hypercarbic respiratory failure - acute component combination of pneumonia + CHF. Improving, s/p extubation 12/09/16. 2. b/l pneumonia - gram negative etiology possible. Remains on cefepime/ zithromax. Day #5 of antibiotics. Cont supportive care, pulmonary toilet, nebs, etc. 3. acute/chronic right-sided heart failure with diastolic dysfunction - cont diuresis. Improving. 4. a. fib with RVR - uncontrolled. Consider titration of metoprolol to 150mg BID. Cont diltiazem CD 360 daily. Remains on xarelto for anticoagulation. Amiodarone also on board - to help with rate control? If rates continue to be poor he sees Dr. Parson from [facility] - consider consultation. 5. recent acetabulum fracture s/p repair at [facility] - noted. 6. hypokalemia - resolved. 7. HTN - controlled with current regimen of medications. 8. CAD - no evidence of ischemia at this time. 9. T2DM - glycemic control per ICU. FSBS q6h. Control adequate. 10. COPD with exacerbation - continue IV steroids; diurese. Nebs etc. 11. DVT proph - xarelto. 12. FEN - advance diet as tolerated; bmp/mag in am. 13. severe protein calorie malnutrition - added boost glucose control, MVI, etc. 14. anemia - appears acute/chronic - consider transfusion if Hb < 7.5 and in light of critical status but H/H have improved last 48 hours. 15. right great toe pain - suspect gout. Check uric acid. Check x-rays to r/o any bony injury to be safe. Colchicine 0.4mg q1h x 3 doses. Reassess in am. PT, OT when able Critical care MD to keep patient in ICU again overnight updated at bedside Continued [facility] stay due to: abnormal vital signs, voiding difficulties, ambulation difficulties, multiple IV medications needed Discharge planning: uncertain
[2016-12-11] VITALS (21 sets, daily range): BP systolic 101–147; BP diastolic 71–98; PULSE 100–129; TEMP 36.2–37; O2SAT 92–99
[2016-12-11] MEDS ORDERED: LEVALBUTEROL/IPRATROPIUM NEB INH SCH (03:00)
[2016-12-11] MEDS: CEFEPIME IV 2,000 MG in SYRINGE 7.5 ML IV SCH ×3 (05:06→21:40)
[2016-12-11] MEDS: IPRATROPIUM BROMIDE NEB SOLN 0.02% 2.5 ML VIAL INH SCH ×3 (07:10→19:30)
[2016-12-11] MEDS: LEVALBUTEROL 1.25MG/0.5ML NEB INH SCH ×3 (07:10→19:33)
[2016-12-11 07:20] LABS: BUN/CREATININE RATIO 33.1 (10-20); CALCIUM 8.6 mg/dl (8.5-10.1); CREATININE 0.82 mg/dl (0.60-1.40); MAGNESIUM 2.5 mg/dl (1.8-2.4); POTASSIUM 3.9 mmol/L (3.5-5.1)
--- NOTE | 2016-12-11 07:40 | Progress Note ---
Subjective Date of Service: Dec 11, 2016. Subjective pt was sitting in chair with and daughter in room states he feels about 50% of his healthiest over the last year, admits to improved leg swelling but still room to diurese, sob is at his baseline with mild respiratory distress Problem List Medical Problems: (1) Atrial fibrillation with rapid ventricular response Status: Acute (2) Bilateral pneumonia Status: Acute (3) Cardiac ischemia Status: Acute (4) Pulmonary congestion Status: Acute (5) Respiratory failure Status: Acute (6) Right acetabular fracture Status: Acute Review of Systems Constitutional: No fever, No chills Respiratory: + shortness of breath, + dyspnea on exertion, No cough Cardiac: + orthopnea, + PND, + edema, No chest pain Abdomen: No pain, No nausea, No vomiting, No diarrhea Skin: + new/changing skin lesions, No color change Objective Vital Signs Date Time Temp Pulse Resp B/P (MAP) Pulse Ox O2 Delivery O2 Flow Rate FiO2 12/11/16 06:01 107 20 147/92 (110) 96 12/11/16 06:00 124 23 147/92 (110) 95 12/11/16 05:00 117/96 (103) 12/11/16 04:08 96 High Flow Oxygen 40.0 40 12/11/16 04:01 36.5 100 20 125/86 (99) 96 High Flow Oxygen 12/11/16 04:00 106 24 98 12/11/16 03:00 101 22 131/78 (95) 99 12/11/16 02:00 105 16 126/98 (107) 96 12/11/16 01:03 101 22 128/76 (93) 98 12/11/16 01:00 111 19 128/76 (93) 98 12/11/16 00:00 37.0 110 18 141/94 (110) 97 High Flow Oxygen 40.0 40 12/11/16 00:00 96 High Flow Oxygen 40.0 40 12/10/16 23:00 125 20 114/82 (93) 97 12/10/16 22:00 108 19 142/94 (110) 94 12/10/16 21:00 114 24 145/86 (105) 89 12/10/16 20:14 105 16 88 Room Air 12/10/16 20:00 37.0 98 22 136/93 (107) 92 Nasal Cannula 12/10/16 20:00 96 High Flow Oxygen 40.0 40 12/10/16 19:00 113 24 88 12/10/16 18:00 116 26 129/54 (79) 12/10/16 17:00 136 28 102/66 (78) 12/10/16 16:00 150 25 126/85 (99) 77 12/10/16 16:00 96 Nasal Cannula 3.0 Humidified Oxygen 12/10/16 15:41 126 16 96 Nasal Cannula 3.0 12/10/16 15:00 119 24 117/85 (96) 95 12/10/16 14:50 150 83 12/10/16 14:00 123 26 136/81 (99) 91 12/10/16 14:00 130 28 117/85 (96) 98 Nasal Cannula 3.0 12/10/16 12:00 127 27 113/80 (91) 96 Nasal Cannula 3.0 12/10/16 12:00 96 Nasal Cannula 3.0 Humidified Oxygen 12/10/16 11:28 122 16 93 Nasal Cannula 4.0 12/10/16 10:00 126 20 142/89 (106) 95 Nasal Cannula 3.0 12/10/16 08:27 125 16 96 Nasal Cannula 4.0 12/10/16 08:00 98 Nasal Cannula 4.0 12/10/16 08:00 37.1 130 22 110/81 (91) 96 Nasal Cannula 4.0 Physical Exam General Appearance: + mild distress, + obese Eyes: PERRL, EOMI Neck: supple, + JVD Respiratory/Chest: chest non-tender, + decreased breath sounds, + accessory muscle use Cardiovascular: regular rate, rhythm, no murmur Abdomen: normal bowel sounds, non tender, soft Extremities: + pedal edema, + swelling Neurologic/Psychiatric: alert, oriented x 3 Laboratory Results Last 24 Hours Test 12/10/16 12:00 12/10/16 15:31 12/10/16 16:17 12/10/16 20:50 Bedside Glucose 137 mg/dl 128 mg/dl 121 mg/dl Uric Acid 4.6 mg/dl Test 12/11/16 05:43 12/11/16 06:05 12/11/16 07:11 Bedside Glucose 148 mg/dl 144 mg/dl Hemoglobin 9.4 g/dL Sodium Level 136 mmol/L Potassium Level 3.9 mmol/L Chloride Level 94 mmol/L Carbon Dioxide Level 37 mmol/L Anion Gap 5.0 mmol/L Blood Urea Nitrogen 27 mg/dl Creatinine 0.82 mg/dl Est Creatinine Clear Calc Drug Dose 92.2 ml/min Estimated GFR () 98.2 Estimated GFR (Non- 84.7 BUN/Creatinine Ratio 33.1 Random Glucose 133 mg/dl Calcium Level 8.6 mg/dl Magnesium Level 2.5 mg/dl Assessment and Plan 76yo male with acute on chronic respiratory failure with intubation and ventilation, complicated with gram negative pneumonia. Acute/chronic hypoxic/hypercarbic respiratory failure - copd, right sided heart failure. Improving, s/p extubation 12/09/16. b/l pneumonia - gram negative etiology possible. Remains on cefepime/ zithromax. Cont supportive care, pulmonary toilet, nebs, etc. Acute/chronic right-sided heart failure with diastolic dysfunction - cont diuresis. Improving. A. fib with RVR - metoprolol to 100mg BID. diltiazem CD 360 daily. Remains on xarelto for anticoagulation. Amiodarone -he sees Dr. Parson from [facility] recent acetabulum fracture s/p repair at [facility] - noted. hypokalemia - resolved. CAD - no evidence of ischemia at this time. T2DM - glycemic control will continue with basal bolus COPD with exacerbation - taper steroids; diurese. Nebs etc. DVT proph - xarelto. severe protein calorie malnutrition - added boost glucose control, MVI, etc. Anemia - appears acute/chronic - seems stable over last few days suspect gout. improved with Colchicine 0.4mg q1h x 3 doses. PT, OT when able Continued [facility] stay due to: abnormal vital signs, voiding difficulties, ambulation difficulties, multiple IV medications needed Discharge planning: uncertain
[2016-12-11] MEDS: INSULIN ASPART 100 UNITS/ML 3 ML PEN SC SCH ×4 (07:56→21:38)
[2016-12-11] MEDS: GUAIFENESIN 600 MG TABCR PO SCH ×2 (07:56→21:39)
[2016-12-11] MEDS: BOOST GLUCOSE CONTROL PO SCH ×3 (07:56→16:54)
[2016-12-11] MEDS: FLUTICASONE/SALMETEROL 250/50 (ADVAIR) 14 PUFF/1 INHALER INH SCH ×2 (07:56→21:40)
[2016-12-11] MEDS: CEROVITE ADV FORMULA TAB PO SCH (07:57)
[2016-12-11] MEDS: METOPROLOL TARTRATE 100 MG TAB PO SCH ×2 (07:57→21:39)
[2016-12-11] MEDS: ASPIRIN 81 MG CHEW PO SCH (07:57)
[2016-12-11] MEDS: POTASSIUM CHLORIDE 20MEQ/15ML 473ML PO SCH ×2 (07:57→21:39)
[2016-12-11] MEDS: AZITHROMYCIN 250 MG TAB PO SCH (07:57)
[2016-12-11] MEDS: FLUTICASONE PROPIONATE NA SPR 16 GM BTL SCH (07:58)
[2016-12-11] MEDS: POLYETHYLENE (MIRALAX) 17 GM PACK PO SCH (08:22)
[2016-12-11] MEDS: FUROSEMIDE 40 MG TAB PO SCH ×2 (08:22→16:55)
[2016-12-11] MEDS: METHYLPREDNISOLONE IV 40 MG in SYRINGE 0 ML IV SCH ×2 (08:22→21:39)
[2016-12-11] MEDS: DILTIAZEM HCL 180 MG CAPCR PO SCH (08:22)
[2016-12-11] MEDS: AMIODARONE 200 MG TAB PO SCH (08:22)
[2016-12-11] MEDS: CYANOCOBALAMIN 100 MCG TAB (VIT B-12) PO SCH (08:22)
--- NOTE | 2016-12-11 09:42 | Critical Care Progress Note ---
Critical Care Progress Note Date of Service Dec 11, 2016. Attending Dr. Tavarez Subjective In summary, the patient is a 76 year old gentleman with history of atrial fibrillation on Xarelto, coronary artery disease, status post CABG, hypertension, hyperlipidemia, CHF, COPD on 2 L of oxygen, SANDOR on CPAP at night who was brought to [facility] for unresponsiveness while signing AMA from rehabilitation facility. As per his , patient suffered a right acetabular fracture on 11/05. He underwent total hip arthroplasty at [facility] on 11/08/2016. Postoperatively patient was transferred to [facility] for rehabilitation. Over there, patient was diagnosed with pneumonia and treated with Augmentin. Patient required oxygen per nasal cannula. He was somewhat confused and short of breath while signing AGAINST MEDICAL ADVICE. Patient was transferred in the wheelchair to his car off oxygen. He managed to get into the vehicle and immediately slumped over and became unresponsive. He was no witnessed seizure. Ambulance was called, patient was brought to [facility]. She required to be intubated as he was hypoxic and was not able to protect his airways adequately. Patient was transferred critically ill to surgical intensive care unit for further evaluation. Extubation on December 09. Uneventful night. No fever, chills, chest pain, abdominal pain or diarrhea. Objective General appearance: Morbidly obese, Well-developed, well-nourished, no apparent distress while on sedation, able to open eyes Head: Normocephalic, atraumatic ENT: Mouth mucosa is moist, face symmetric. Neck: Supple, unable to assess JVD due to neck thickness Respiratory/Chest: Diminished though somewhat better air movement, bilateral scattered wheezing. Cardiovascular: irregular rate and rhythm, no murmurs heard, normal S1-S2 Abdomen/GI: Normal bowel sounds, non-tender, soft, bowel sounds present Extremities/Musculoskeletal: 2+ pitting edema bilaterally up to the knees. Weak peripheral pulses. Lower abdomen and hip incisions are clean, no infection. Skin: Normal color, warm/dry, no rash Neurologically: Patient is awake and alert 3, clear speech. No motor or sensory deficits. Current SOFA Score SOFA Score Response (Comments) Value Platelets (x10) > 150 0 Bilirubin (mg/dL) < 1.2 0 Vanessa Coma Score 15 0 Level of Hypotension No Hypotension 0 Creatinine (mg/dL) < 1.2 0 Total 0 Assessment & Plan 1. Acute respiratory failure likely multifactorial secondary to pneumonia and COPD exacerbation. Successful extubation 2 days ago. Patient had moderately increased for breathing and wheezing associated with atrial fibrillation with rapid ventricular response following extubation so he was monitored and treated in the ICU setting. He still had some signs of fluid overload. I will give him additional 40 mg of Lasix IV 1. His work of breathing has improved, heart rate is better controlled. I feel it would be appropriate to transfer patient out of the ICU for further management. 2. Pneumonia. Cultures are negative. We'll finish 7 days course of cefepime and azithromycin. 3. COPD for what will continue with nebulizers. We'll still continue with penicillin Medrol as patient continues to wheeze. 4. Metabolic encephalopathy has resolved. Grossly intact neurologic examination. 5. Coronary artery disease, history of CABG. No signs of ischemia. Echocardiography revealed good left ventricular function, right ventricular cavity dilated, slightly decreased function. We will continue with aspirin and metoprolol. 6. Atrial fibrillation, heart rate is controlled with metoprolol, amiodarone and Cardizem. Anticoagulation with Xarelto. 7. Status post recent total right hip arthroplasty. Incisions are well healing. We'll consult physical therapy to help with mobility following keep replacement. 8. Renal function is adequate. Persistent fluid overload. We'll continue with daily scheduled Lasix, give additional dose of Lasix until creatinine starts climbing up. 9. GI: Patient tolerates diet well. 10. Obstructive sleep apnea. Patient has home CPAP machine which we will use at night. 11. Patient is full code. Patient has improved significantly, so we'll transfer him to the regular nursing floor for further management. [id number] note. CHEESH-NA II Score Date Score Was Generated: Dec 07, 2016 Consults & Procedures Consultants: Critical care medicine. Procedures: Intubation on 11/06/2016. Data Medications: Current Inpatient Medications Medications (Trade) Dose Ordered Sig/Janee Route Start Time Stop Time Status Last Admin Dose Admin Glucose (Glucose 40% Gel) 15-30 GRAMS 15 GRAMS... UD PRN PO 12/06/16 14:45 01/05/17 14:44 Glucose (Glucose Chew Tab) 4-8 Tablets 4 Tabl... UD PRN PO 12/06/16 14:45 01/05/17 14:44 Dextrose (Dextrose 50% 50ML Syringe) 25-50ML OF 50% DW IV FOR... UD PRN IV 12/06/16 14:45 01/05/17 14:44 Glucagon (Glucagon Inj) 1 mg UD PRN SQ 12/06/16 14:45 01/05/17 14:44 Amiodarone HCl (Cordarone Tab) 200 mg DAILY PO 12/07/16 09:00 01/06/17 08:59 12/11/16 08:22 200 MG Cyanocobalamin (Vitamin B-12 Tab) 100 mcg DAILY PO 12/07/16 09:00 01/06/17 08:59 12/11/16 08:22 100 MCG Salmeterol Xinafoate/ Fluticasone (Advair Diskus 250/50 Inh) 1 puff BID INH 12/07/16 09:00 01/06/17 08:59 12/11/16 07:56 1 PUFF Fluticasone Propionate (Flonase Nasal [place]) 1 sprays DAILY NA 12/07/16 09:00 01/06/17 08:59 12/11/16 07:58 1 SPRAYS Furosemide (Lasix Tab) 40 mg QDD PO 12/07/16 16:30 01/06/17 16:29 12/09/16 15:54 40 MG Furosemide (Lasix Tab) 80 mg QAM PO 12/07/16 09:00 01/06/17 08:59 12/11/16 08:22 80 MG Latanoprost (Xalatan Oph Soln) 1 drops HS OPL 12/07/16 21:00 01/06/17 20:59 12/10/16 20:24 1 DROPS Metoprolol Tartrate (Lopressor Tab) 100 mg BID PO 12/07/16 09:00 01/06/17 08:59 12/11/16 07:57 100 MG Rivaroxaban (Xarelto Tab) 20 mg HS PO 12/07/16 21:00 01/06/17 20:59 12/10/16 20:35 20 MG Senna/Docusate Sodium (Senokot S Tab) 1 tab QDL PRN PO 12/07/16 00:30 01/06/17 00:29 Simvastatin (Zocor Tab) 10 mg QPM PO 12/07/16 21:00 01/06/17 20:59 12/10/16 20:45 10 MG Aspirin (Aspirin Chew) 81 mg QAM PO 12/07/16 09:00 01/06/17 08:59 12/11/16 07:57 81 MG Methylprednisolone Sodium Succinate 40 mg/Syringe 0.64 ml @ 1.5 mls/min Q12 IV 12/08/16 21:00 01/07/17 20:59 12/11/16 08:22 1.5 MLS/MIN Potassium Chloride (Zehra Ciel Elix) 10 meq BID PO 12/08/16 10:00 01/07/17 09:59 12/11/16 07:57 10 MEQ Lorazepam (Ativan Inj) 1 mg Q2H PRN IV 12/08/16 22:30 01/07/17 22:29 12/10/16 06:20 1 MG Cefepime HCl 2000 mg/Syringe 20 ml @ 5 mls/min Q8@0600,1400,2200 IV 12/09/16 13:00 12/13/16 13:59 12/11/16 05:06 5 MLS/MIN Polyethylene (Miralax Powder Packet) 17 gm QAM PO 12/09/16 09:00 01/08/17 08:59 12/11/16 08:22 17 GM Albuterol/ Ipratropium (Duoneb) 3 ml Q4 PRN INH 12/09/16 11:00 01/08/17 10:59 Insulin Aspart (novoLOG ASPART) SLIDING SCALE If C... ACHS SC 12/09/16 21:00 01/08/17 20:59 12/11/16 07:56 3 UNITS Enteral Nutritional Formula (Boost Glucose Control) 1 can TIDM PO 12/10/16 07:15 01/09/17 07:14 12/11/16 07:56 1 CAN Multivitamins/ Minerals (Multivitamin W/ Minerals Tab) 1 tab QAM PO 12/10/16 09:00 01/09/17 08:59 12/11/16 07:57 1 TAB Heparin Sodium (Porcine) (Heparin 10 Unit/ ml 5 ml Flush) 5 ml PRN PRN FLUSH 12/10/16 02:45 01/09/17 02:44 Diltiazem HCl (Cardizem Cd Cap) 360 mg QAM PO 12/10/16 09:00 124/17 08:59 12/11/16 08:22 360 MG Azithromycin (Zithromax Tab) 500 mg QAM PO 12/10/16 09:00 12/15/16 09:00 12/11/16 07:57 500 MG Guaifenesin (Mucinex Contr Rel Tab) 1,200 mg Q12 PO 12/10/16 09:00 01/09/17 08:59 12/11/16 07:56 1,200 MG Ipratropium [place] (Atrovent 0.02% 0.5MG/2.5ML Neb) 0.5 mg Q6R INH 12/11/16 03:00 01/10/17 02:59 12/11/16 07:10 0.5 MG Levalbuterol (Xopenex 1.25MG/ 0.5ML Neb) 1.25 mg Q6R INH 12/11/16 03:00 01/10/17 02:59 12/11/16 07:10 1.25 MG Vital Signs: Date Time Temp Pulse Resp B/P (MAP) Pulse Ox O2 Delivery O2 Flow Rate FiO2 12/11/16 09:00 103 20 117/98 (104) 94 Nasal Cannula 4.0 12/11/16 08:00 92 Nasal Cannula 4.0 12/11/16 08:00 36.2 127 22 116/95 (102) 92 Nasal Cannula 4.0 12/11/16 07:10 117 16 95 Nasal Cannula 3.0 12/11/16 06:01 107 20 147/92 (110) 96 12/11/16 06:00 124 23 147/92 (110) 95 12/11/16 05:00 117/96 (103) 12/11/16 04:08 96 High Flow Oxygen 40.0 40 12/11/16 04:01 36.5 100 20 125/86 (99) 96 High Flow Oxygen 12/11/16 04:00 106 24 98 12/11/16 03:00 101 22 131/78 (95) 99 12/11/16 02:00 105 16 126/98 (107) 96 12/11/16 01:03 101 22 128/76 (93) 98 12/11/16 01:00 111 19 128/76 (93) 98 12/11/16 00:00 37.0 110 18 141/94 (110) 97 High Flow Oxygen 40.0 40 12/11/16 00:00 96 High Flow Oxygen 40.0 40 12/10/16 23:00 125 20 114/82 (93) 97 12/10/16 22:00 108 19 142/94 (110) 94 12/10/16 21:00 114 24 145/86 (105) 89 12/10/16 20:14 105 16 88 Room Air 12/10/16 20:00 37.0 98 22 136/93 (107) 92 Nasal Cannula 12/10/16 20:00 96 High Flow Oxygen 40.0 40 12/10/16 19:00 113 24 88 12/10/16 18:00 116 26 129/54 (79) 12/10/16 17:00 136 28 102/66 (78) 12/10/16 16:00 150 25 126/85 (99) 77 12/10/16 16:00 96 Nasal Cannula 3.0 Humidified Oxygen 12/10/16 15:41 126 16 96 Nasal Cannula 3.0 12/10/16 15:00 119 24 117/85 (96) 95 12/10/16 14:50 150 83 12/10/16 14:00 123 26 136/81 (99) 91 12/10/16 14:00 130 28 117/85 (96) 98 Nasal Cannula 3.0 12/10/16 12:00 127 27 113/80 (91) 96 Nasal Cannula 3.0 12/10/16 12:00 96 Nasal Cannula 3.0 Humidified Oxygen 12/10/16 11:28 122 16 93 Nasal Cannula 4.0 12/10/16 10:00 126 20 142/89 (106) 95 Nasal Cannula 3.0 Laboratory Results: Last 24 Hours Test 12/10/16 12:00 12/10/16 15:31 12/10/16 16:17 12/10/16 20:50 Bedside Glucose 137 mg/dl 128 mg/dl 121 mg/dl Uric Acid 4.6 mg/dl Test 12/11/16 05:43 12/11/16 06:05 12/11/16 07:11 Bedside Glucose 148 mg/dl 144 mg/dl Hemoglobin 9.4 g/dL Sodium Level 136 mmol/L Potassium Level 3.9 mmol/L Chloride Level 94 mmol/L Carbon Dioxide Level 37 mmol/L Anion Gap 5.0 mmol/L Blood Urea Nitrogen 27 mg/dl Creatinine 0.82 mg/dl Est Creatinine Clear Calc Drug Dose 92.2 ml/min Estimated GFR () 98.2 Estimated GFR (Non- 84.7 BUN/Creatinine Ratio 33.1 Random Glucose 133 mg/dl Calcium Level 8.6 mg/dl Magnesium Level 2.5 mg/dl
[2016-12-11] MEDS ORDERED: FUROSEMIDE INJ 40 MG in SYRINGE 0 ML IV ONE (10:15)
[2016-12-11] MEDS ORDERED: NURSING VERBAL MED ORDER ONE (14:00)
[2016-12-11] MEDS ORDERED: ALTEPLASE, RECOMBINANT 1 MG/ML 2 ML VIAL IV ONE (14:15)
[2016-12-11] MEDS: RIVAROXABAN 10 MG TAB PO SCH (21:38)
[2016-12-11] MEDS: SIMVASTATIN 10 MG TAB PO SCH (21:38)
[2016-12-11] MEDS: LATANOPROST 0.005% OP SOLN 2.5 ML BTL OPL SCH (21:39)
[2016-12-12] VITALS (13 sets, daily range): BP systolic 110–138; BP diastolic 77–98; PULSE 84–120; TEMP 36.5–36.8; O2SAT 93–98
[2016-12-12] MEDS: IPRATROPIUM BROMIDE NEB SOLN 0.02% 2.5 ML VIAL INH SCH ×4 (02:09→19:43)
[2016-12-12] MEDS: LEVALBUTEROL 1.25MG/0.5ML NEB INH SCH ×4 (02:09→19:43)
[2016-12-12] MEDS: CEFEPIME IV 2,000 MG in SYRINGE 7.5 ML IV SCH ×3 (05:39→22:03)
[2016-12-12] MEDS: INSULIN ASPART 100 UNITS/ML 3 ML PEN SC SCH ×4 (07:46→21:00)
[2016-12-12] MEDS: BOOST GLUCOSE CONTROL PO SCH ×3 (07:48→16:45)
[2016-12-12 08:00] LABS: HEMATOCRIT 31.1 % (42-52); MEAN CELL VOLUME 88.6 fL (80-100); MEAN CORPUSCULAR HEMOGLOBIN 28.2 pg (25-34); MEAN CORPUSCULAR HGB CONC 31.8 g/dl (32-36); MEAN PLATELET VOLUME 9.7 fL (7.4-10.4); PLATELET COUNT 347 K/uL (130-400); RED BLOOD COUNT 3.51 M/uL (4.7-6.1); WHITE BLOOD COUNT 13.05 K/uL (4.8-10.8)
[2016-12-12] MEDS: ASPIRIN 81 MG CHEW PO SCH (08:17)
[2016-12-12] MEDS: METHYLPREDNISOLONE IV 40 MG in SYRINGE 0 ML IV SCH (08:17)
[2016-12-12] MEDS: FLUTICASONE/SALMETEROL 250/50 (ADVAIR) 14 PUFF/1 INHALER INH SCH ×2 (08:17→20:52)
[2016-12-12] MEDS: FLUTICASONE PROPIONATE NA SPR 16 GM BTL SCH (08:17)
[2016-12-12] MEDS: DILTIAZEM HCL 180 MG CAPCR PO SCH (08:18)
[2016-12-12] MEDS: AMIODARONE 200 MG TAB PO SCH ×2 (08:19→20:54)
[2016-12-12] MEDS: POTASSIUM CHLORIDE 20MEQ/15ML 473ML PO SCH ×2 (08:19→20:55)
[2016-12-12] MEDS: FUROSEMIDE 40 MG TAB PO SCH ×2 (08:20→17:31)
[2016-12-12 08:21] LABS: BASO % 0.1 %; BASO ABS # 0.01 K/uL (0-0.2); COMPLETE YES; IG% 5.7 %; LYMPH % 5.1 %; LYMPH ABS # 0.67 K/uL (1.2-3.4); MONO % 5.1 %
[2016-12-12] MEDS: METOPROLOL TARTRATE 100 MG TAB PO SCH ×2 (08:21→20:56)
[2016-12-12] MEDS: GUAIFENESIN 600 MG TABCR PO SCH ×2 (08:22→20:55)
[2016-12-12] MEDS: CYANOCOBALAMIN 100 MCG TAB (VIT B-12) PO SCH (08:22)
[2016-12-12] MEDS: CEROVITE ADV FORMULA TAB PO SCH (08:23)
[2016-12-12] MEDS: AZITHROMYCIN 250 MG TAB PO SCH (08:23)
[2016-12-12] MEDS: POLYETHYLENE (MIRALAX) 17 GM PACK PO SCH ×2 (08:23→08:26)
[2016-12-12 08:29] LABS: BUN/CREATININE RATIO 36.4 (10-20); CALCIUM 8.9 mg/dl (8.5-10.1); CREATININE 0.86 mg/dl (0.60-1.40); MAGNESIUM 2.5 mg/dl (1.8-2.4); POTASSIUM 3.5 mmol/L (3.5-5.1)
--- NOTE | 2016-12-12 12:29 | Hospitalist Progress Note ---
Hospitalist Progress Note Date of Service Dec 12, 2016. (Cecelia Lanier ., STEVEN) Subjective Pt evaluation today including: conversation w/ patient, physical exam, chart review, lab review, review of inpatient medication list Pain: None PO Intake: Tolerating PO diet Voiding: griffith catheter in place Patient reports feeling well. He states that his breathing feels about baseline. He is still coughing but it is no longer productive and is much improved. He does report intermittent wheezing. The patient denies fevers, chills, sweats, chest pain, palpitations, claudication, nausea, vomiting, abdominal pain, dysuria, hematuria, urinary retention, paralysis, weakness, numbness and tingling. Additional Comments: See HPI for pertinent positives and negatives. All other systems reviewed and negative. (Cecelia Lanier ., TESSC) Objective Vital Signs Date Time Temp Pulse Resp B/P (MAP) Pulse Ox O2 Delivery O2 Flow Rate FiO2 12/12/16 10:50 36.7 108 19 118/95 (103) 95 Nasal Cannula 12/12/16 09:40 Nasal Cannula 4.0 12/12/16 08:50 36.5 120 20 131/77 (95) 95 Nasal Cannula 12/12/16 07:55 36.5 20 131/77 (95) 95 Nasal Cannula 12/12/16 07:29 104 16 98 Nasal Cannula 4.0 12/12/16 04:00 Nasal Cannula 4.0 12/12/16 03:57 36.5 115 20 110/86 (94) 95 CPAP 12/12/16 02:09 84 16 96 BiPAP/CPAP 4.0 12/12/16 00:02 CPAP 4.0 12/11/16 23:13 36.5 109 16 142/90 (107) 95 CPAP 12/11/16 20:27 129 22 101/71 (81) 94 Humidified Air 4.0 12/11/16 20:00 Nasal Cannula 4.0 Humidified Oxygen 12/11/16 19:33 104 16 98 Nasal Cannula 4.0 12/11/16 16:00 36.8 114 24 143/77 (99) 95 Nasal Cannula 4.0 12/11/16 16:00 Nasal Cannula 4.0 12/11/16 14:05 114 16 96 Nasal Cannula 3.0 12/11/16 14:00 108 21 130/97 (108) 98 Nasal Cannula 4.0 (Cecelia Lanier ., PA-C) Physical Exam Notes: General appearance: +Obese. Well-developed, well-nourished, no apparent distress Head: Normocephalic, atraumatic Eyes: Normal inspection, PERRL, EOMI ENT: Normal ENT inspection, hearing grossly normal, pharynx normal Neck: Supple, no JVD, trachea midline Respiratory/Chest: +Decreased breath sounds in bases. Mild wheezing throughout mid and upper lobes. No respiratory distress Cardiovascular: +Irregularly irregular, tachycardic. No gallop, no murmur Abdomen/GI: Normal bowel sounds, non-tender, soft Extremities/Musculoskeletal: +1-2+ pitting edema. Normal inspection, no calf tenderness Neurological/Psych: Alert, normal mood/affect, oriented x 3 Skin: Normal color, warm/dry, no rash (Cecelia Lanier ., PA-C) Laboratory Results Last 24 Hours Test 12/11/16 16:21 12/11/16 20:44 12/12/16 07:13 12/12/16 07:45 Bedside Glucose 148 mg/dl 182 mg/dl 137 mg/dl White Blood Count 13.05 K/uL Red Blood Count 3.51 M/uL Hemoglobin 9.9 g/dL Hematocrit 31.1 % Mean Corpuscular Volume 88.6 fL Mean Corpuscular Hemoglobin 28.2 pg Mean Corpuscular Hemoglobin Concent 31.8 g/dl Platelet Count 347 K/uL Mean Platelet Volume 9.7 fL Neutrophils (%) (Auto) 84.0 % Lymphocytes (%) (Auto) 5.1 % Monocytes (%) (Auto) 5.1 % Eosinophils (%) (Auto) 0.0 % Basophils (%) (Auto) 0.1 % Neutrophils # (Auto) 10.97 K/uL Lymphocytes # (Auto) 0.67 K/uL Monocytes # (Auto) 0.66 K/uL Eosinophils # (Auto) 0.00 K/uL Basophils # (Auto) 0.01 K/uL RDW Standard Deviation 48.9 fL RDW Coefficient of Variation 15.3 % Immature Granulocyte % (Auto) 5.7 % Immature Granulocyte # (Auto) 0.74 K/uL Nucleated RBC Absolute Count (auto) 0.09 K/uL Nucleated Red Blood Cells % 0.7 % Sodium Level 137 mmol/L Potassium Level 3.5 mmol/L Chloride Level 93 mmol/L Carbon Dioxide Level 38 mmol/L Anion Gap 6.0 mmol/L Blood Urea Nitrogen 31 mg/dl Creatinine 0.86 mg/dl Est Creatinine Clear Calc Drug Dose 87.9 ml/min Estimated GFR () 96.3 Estimated GFR (Non- 83.1 BUN/Creatinine Ratio 36.4 Random Glucose 134 mg/dl Calcium Level 8.9 mg/dl Magnesium Level 2.5 mg/dl Test 12/12/16 11:22 Bedside Glucose 140 mg/dl (Cecelia Lanier, STEVEN) Assessment and Plan 76 y/o male with a history of a-fib, HTN, HLD, CAD, right sided heart failure, COPD, and DM II who presented to the ED on 12/06 with respiratory failure and syncope. Pt intubated by ED physician. Head CT negative. Chest CTA negative for PE. CXR shows bilateral patchy infiltrates. EKG shows a-fib with RVR, no acute ischemic changes. Troponin negative. WBC WNL. INR 1.5. Sodium 126. Lactic acid 2.7. LFTs elevated. POC ABG shows pH 7.25, pCO2 80, pO2 173 and HCO3 35. Sepsis and acute respiratory failure secondary to pneumonia--improving -Admit to ICU. Pt intubated in ED, extubated 12/09. Transferred to tele 12/11. Pt in afib/flutter overnight with HR up to 150s -Cefepime 2 gm IV q8h. Stop date 12/13 -Azithromycin 500 mg PO qd. Day #3/5 per ICU recs -Lactic acid 2.7 on admission, improved to 0.9 -Blood cultures negative -Pt 95% on 4L. Wears 2L chronically -WBC up to 13.05 on 12/12 from 8.44 but likely due to steroids Syncope--unclear etiology -Echo shows EF 60-65%. No WMA. A-fib. -Cardiac enzymes negative A-fib with RVR--ongoing -Magnesium 2.5 -Continue ASA 81 mg PO qd, diltiazem 360 mg PO qd, Lopressor 100 mg PO BID, amiodarone 200 mg PO qd and Xarelto 20 mg PO qd -Cardiology consulted, appreciate recs. Pt follows with Dr. Parson COPD with exacerbation--improving -Xopenex/Atrovent nebs QIDR, Advair BID -D/C Solu-Medrol -Prednisone taper: 60 mg PO, then decrease by 10 mg q2d Acute on chronic right-sided heart failure with diastolic dysfunction--improving -Continue Lasix 80 mg PO qam and 40 mg PO QDD -UO 1425, net balance -1185 -Daily weights, I's and O's -Renal function stable Mild LFT elevation, elevated INR likely secondary to sepsis--improving -Continue to monitor HTN--stable. Pt did develop hypotension in ED, but BP now WNL -Lopressor 100 mg PO BID ([facility] records indicate 100 mg PO TID) HLD -Simvastatin 10 mg PO qd DM II--last HgbA1c checked 10/07/16 was 6.2 -Insulin sliding scale -Check BSGs q ac and qhs Severe protein calorie malnutrition--stable -Added boost glucose control, MVI, etc. Hypokalemia--resolved -Replace prn Acute on chronic anemia--improving -Baseline Hgb 12-13 -Hgb 9.9 on 12/12 -Unknown etiology, previous iron studies 2014 WNL Right great toe pain--improved/resolved -Suspected secondary to gout, improved after colchicine -Toe x-ray negative for acute fractures. Shows chronic and degenerative changes -Received Colchicine 0.4mg q1h x 3 doses. DVT prophylaxis -Xarelto -ALPHONSO burrell and SCDs Code Status -Level I, FULL RESUSCITATION STATUS (Cecelia Lanier ., STEVEN) Reviewed: Pt Seen/Exam by Me (Concepcion Bazan MD) History Physician Coverage Specialist Rn Supervision Note: I interviewed and examined the patient. Discussed with KAMILAH Lanier and agree with findings and plan as documented in the note. Any exceptions or clarifications are listed here: Pt feeling overall much improved from previous, breathing back to baseline. Asymptomatic even with his rapid a-fib, tele rates in 130s. Tele reviewed, vitals reviewed NAD, sitting in wheelchair irreg irreg, tachy, no mgr decreased BS at bases bilat, faint exp wheezes diffusely Abd +BS soft , obese, NT ND Ext 2-3+ pitting edema to thighs bilat 76 yo male with a h/o CAD, Afib, COPD, HTN, DMII, CHF, HL, here with acute on chronic hypercapnic and hypoxemic respiratory failure requiring intubation, PNA/ HCAP, and rapid a-fib. -appreciate Cardio recommendations to increase amiodarone to 200mg bid, restart home aldactone which should help increase potassium -will keep potassium replacement at 10 bid and see if aldactone increases K+ to 4.0 tomorrow -continue abx for PNA Xarelto for prophylaxis Documented By: Concepcion Bazan (Concepcion Bazan MD)
[2016-12-12] MEDS ORDERED: SPIRONOLACTONE 25 MG TAB PO ONE (12:30)
--- NOTE | 2016-12-12 13:04 | CARDIOLOGY CONSULTATION ---
DATE OF CONSULTATION: 12/12/2016 REFERRING PHYSICIAN: Dr. King. INDICATIONS: Atrial fibrillation with elevated ventricular response rate. PRIMARY CARE PHYSICIAN: Dr. Worthington. HISTORY OF PRESENT ILLNESS: The patient is a very complex 76-year-old male with a prior cardiac history notable for ischemic heart disease with a remote coronary intervention of left circumflex in 1999, left anterior descending in 2000 with subsequent later coronary bypass grafting for progressive multivessel disease in 2011 after suffering a non-ST segment elevation infarct in the setting of rapid atrial fibrillation. The patient at that time received a REILLY graft to the LAD, a saphenous vein graft to the obtuse marginal, and a saphenous vein graft to the posterior descending artery. His underlying medical problems include severe longstanding and labile hypertension with hypertensive heart disease and diastolic dysfunction, chronic obstructive lung disease with severe obstructive sleep apnea and nocturnal hypoxia, hyperlipidemia, and past paroxysmal, now persistent atrial fibrillation. The patient presents this admission noting having suffered a mechanical fall on 11/04/2016 with complex acetabular fracture. He was transferred to [facility] and underwent a surgical repair and hip replacement. Course there is notable for atrial fibrillation with rapid ventricular response. He present now. He was discharged post-hospital at [facility] to [facility] and then readmitted to [facility] with worsening signs and symptoms of respiratory failure, pneumonia per reports. He has been hospitalized here since 12/06/2016. Clinical history is notable for persistent atrial fibrillation with elevated ventricular response rates. He is referred now to aid in management of underlying atrial arrhythmias. The patient was seen and examined today. He denies any chest pains or discomfort. He notes no dizziness or lightheadedness. He notes no syncope or near syncope. Appetite is good. Notes no melena or hematochezia. He has had some worsening edema and abdominal bloating. He notes no sense of tachypalpitations. He is unaware of his heart rhythms, as in the past he has begun to use CPAP/BiPAP at night. Heart rates are remaining persistently elevated. Weight is trending downward and this patient appears to be spontaneously diuresing with preserved renal function. ALLERGIES: None. MEDICATIONS: At time of admission were per review of a list, amiodarone 200 mg p.o. daily; aspirin 81 mg per day; vitamin B12 at 100 mg p.o. daily; Diltiazem 360 mg daily, representing increased dose for outpatient; furosemide 80 mg p.o. daily with an additional 40 mg every other day; metoprolol 100 mg twice per day; omeprazole 20 mg twice per day; potassium chloride 10 mEq b.i.d.; rivaroxaban 20 mg at bedtime; simvastatin 10 mg q.p.m.; oxycodone p.r.n.; and DuoNeb treatments. PAST SURGICAL HISTORY: Notable for prior cataract extraction, dental surgeries, coronary artery bypass grafting as described above, and a recent hip surgical repair. FAMILY HISTORY: Notable for heart disease in brothers. SOCIAL HISTORY: The patient is a nonsmoker and nondrinker. Previously worked part-time at an [employer]. PHYSICAL EXAMINATION: GENERAL: The patient is an age appropriate male, in no acute distress currently. VITAL SIGNS: Heart rate is 100 and blood pressure is 112/58. HEENT: Normocephalic and atraumatic. NECK: Thick. There is no distinct jugular venous distention. LUNGS: Predominantly clear with diminished breath sounds diffusely. CARDIOVASCULAR: Irregularly irregular. There is no S3 gallop. ABDOMEN: Obese, soft, and nontender with minimal distention. EXTREMITIES: Without cyanosis or clubbing. There is 1-2+ lower extremity edema. LABORATORY DATA: White cell count 13.0, hemoglobin is 9.9, and platelet count is 347. Sodium is 137, potassium is 3.5, chloride is 93, bicarbonate is 38, BUN is 31, and creatinine 0.86. IMPRESSION: A very complex 76-year-old male with underlying history of ischemic heart disease, hypertension with diastolic dysfunction, labile blood pressures, past paroxysmal now persistent atrial fibrillation with recent hospitalizations as outlined and noted during recent repair of hip fracture and pelvic fracture. He was noted to have heart rates elevated postoperatively and was begun on amiodarone in addition to increasing doses of metoprolol and diltiazem. He continues to have elevated heart rates. PLAN: We will attempt to optimize medical therapies. We will increase amiodarone to twice per day as this represents a new medication. TSH and T4 levels will be checked. Continue current dosings of diltiazem and metoprolol, but in hopes of reducing the diltiazem dosing prior to discharge. Continue diuresis. In the past, he has been on spironolactone. In addition to his furosemide, this will be added once again at 25 mg per day to aid in potassium management. We will continue to follow the patient in the hospital as he clinically progresses.
[2016-12-12] MEDS: LATANOPROST 0.005% OP SOLN 2.5 ML BTL OPL SCH (20:53)
[2016-12-12] MEDS: SIMVASTATIN 10 MG TAB PO SCH (20:57)
[2016-12-12] MEDS: RIVAROXABAN 10 MG TAB PO SCH (20:57)
[2016-12-12] MEDS ORDERED: POTASSIUM CHLORIDE 20MEQ/15ML 473ML PO SCH (21:00)
[2016-12-13] VITALS (14 sets, daily range): BP systolic 109–136; BP diastolic 78–93; PULSE 75–127; TEMP 36.6–36.7; O2SAT 94–98
[2016-12-13] MEDS: IPRATROPIUM BROMIDE NEB SOLN 0.02% 2.5 ML VIAL INH SCH ×4 (02:02→19:09)
[2016-12-13] MEDS: LEVALBUTEROL 1.25MG/0.5ML NEB INH SCH ×4 (02:02→19:10)
[2016-12-13 04:56] LABS: MEAN CORPUSCULAR HEMOGLOBIN 27.6 pg (25-34); MEAN PLATELET VOLUME 9.9 fL (7.4-10.4); PLATELET COUNT 329 K/uL (130-400); RED BLOOD COUNT 3.37 M/uL (4.7-6.1); WHITE BLOOD COUNT 13.19 K/uL (4.8-10.8)
[2016-12-13 05:23] LABS: CALCIUM 8.5 mg/dl (8.5-10.1); CREATININE 0.83 mg/dl (0.60-1.40); MAGNESIUM 2.4 mg/dl (1.8-2.4); POTASSIUM 3.6 mmol/L (3.5-5.1)
[2016-12-13] MEDS: CEFEPIME IV 2,000 MG in SYRINGE 7.5 ML IV SCH (06:10)
[2016-12-13] MEDS: BOOST GLUCOSE CONTROL PO SCH ×3 (08:13→17:14)
[2016-12-13] MEDS: FLUTICASONE/SALMETEROL 250/50 (ADVAIR) 14 PUFF/1 INHALER INH SCH ×2 (08:13→20:11)
[2016-12-13] MEDS: FLUTICASONE PROPIONATE NA SPR 16 GM BTL SCH (08:14)
[2016-12-13] MEDS: POTASSIUM CHLORIDE 20MEQ/15ML 473ML PO SCH ×2 (08:15→20:11)
[2016-12-13] MEDS: AMIODARONE 200 MG TAB PO SCH ×2 (08:16→20:10)
[2016-12-13] MEDS: GUAIFENESIN 600 MG TABCR PO SCH ×2 (08:16→20:10)
[2016-12-13] MEDS: CEROVITE ADV FORMULA TAB PO SCH (08:16)
[2016-12-13] MEDS: METOPROLOL TARTRATE 100 MG TAB PO SCH ×2 (08:17→20:09)
[2016-12-13] MEDS: DILTIAZEM HCL 180 MG CAPCR PO SCH (08:18)
[2016-12-13] MEDS: AZITHROMYCIN 250 MG TAB PO SCH (08:18)
[2016-12-13] MEDS: CYANOCOBALAMIN 100 MCG TAB (VIT B-12) PO SCH (08:18)
[2016-12-13] MEDS: FUROSEMIDE 40 MG TAB PO SCH ×2 (08:19→17:15)
[2016-12-13] MEDS: POLYETHYLENE (MIRALAX) 17 GM PACK PO SCH (08:20)
[2016-12-13] MEDS: SPIRONOLACTONE 25 MG TAB PO SCH (08:21)
[2016-12-13] MEDS: INSULIN ASPART 100 UNITS/ML 3 ML PEN SC SCH ×4 (08:28→20:13)
[2016-12-13] MEDS: ASPIRIN 81 MG CHEW PO SCH (08:35)
[2016-12-13] MEDS ORDERED: POTASSIUM CHLORIDE 20 MEQ TABCR PO ONE (08:45)
--- NOTE | 2016-12-13 10:29 | Hospitalist Progress Note ---
Hospitalist Progress Note Date of Service Dec 13, 2016. (Cecelia Lanier ., KAMILAH-C) Subjective Pt evaluation today including: conversation w/ patient, conversation w/ family ( at bedside), physical exam, chart review, lab review, review of inpatient medication list Pain: None PO Intake: Tolerating PO diet Voiding: griffith catheter in place Patient reports feeling well. He again states that his breathing is baseline. He still has a non-productive cough that is unchanged from yesterday. He reports intermittent wheezing. The patient denies fevers, chills, sweats, chest pain, palpitations, claudication, shortness of breath, nausea, vomiting, abdominal pain, dysuria, hematuria, urinary retention, paralysis, weakness, numbness and tingling. Additional Comments: See HPI for pertinent positives and negatives. All other systems reviewed and negative. (Cecelia Lanier ., KAMILAH-C) Objective Vital Signs Date Time Temp Pulse Resp B/P (MAP) Pulse Ox O2 Delivery O2 Flow Rate FiO2 12/13/16 09:07 95 Nasal Cannula 2.5 12/13/16 07:44 36.6 127 22 116/86 (96) 96 12/13/16 07:15 112 16 97 Nasal Cannula 2.0 12/13/16 05:00 95 Nasal Cannula 2.0 12/13/16 03:49 36.7 106 22 131/93 (106) 95 Nasal Cannula 2.0 12/13/16 02:02 110 16 95 Nasal Cannula 2.0 12/12/16 23:30 95 Nasal Cannula 2.0 12/12/16 23:26 36.7 107 18 125/87 (100) 95 Room Air 12/12/16 20:00 98 Nasal Cannula 2.0 12/12/16 19:43 119 18 93 Room Air 12/12/16 19:33 36.8 116 24 138/98 (111) 98 Nasal Cannula 2.0 12/12/16 16:04 36.8 107 24 115/89 (98) 95 Nasal Cannula 2.0 12/12/16 14:26 115 16 97 Nasal Cannula 2.0 12/12/16 10:50 36.7 108 19 118/95 (103) 95 Nasal Cannula (Cecelia Lanier, KAMILAH-C) Physical Exam Notes: General appearance: +Obese. Well-developed, well-nourished, no apparent distress Head: Normocephalic, atraumatic Eyes: Normal inspection, PERRL, EOMI ENT: Normal ENT inspection, hearing grossly normal, pharynx normal Neck: Supple, no JVD, trachea midline Respiratory/Chest: +Decreased breath sounds in bases. Slight wheezing throughout mid and upper lobes. No respiratory distress Cardiovascular: +Irregularly irregular, tachycardic. No gallop, no murmur Abdomen/GI: Normal bowel sounds, non-tender, soft Extremities/Musculoskeletal: +2+ pitting edema. Normal inspection, no calf tenderness Neurological/Psych: Alert, normal mood/affect, oriented x 3 Skin: Normal color, warm/dry, no rash (Cecelia Lanier ., KAMILAH-C) Laboratory Results Last 24 Hours Test 12/12/16 11:22 12/12/16 13:10 12/12/16 16:18 12/12/16 20:00 Bedside Glucose 140 mg/dl 152 mg/dl 155 mg/dl Thyroid Stimulating Hormone (TSH) 1.160 uIu/ml Thyroxine (T4) 4.6 mcg/dl Test 12/13/16 04:22 12/13/16 05:50 White Blood Count 13.19 K/uL Red Blood Count 3.37 M/uL Hemoglobin 9.3 g/dL Hematocrit 30.0 % Mean Corpuscular Volume 89.0 fL Mean Corpuscular Hemoglobin 27.6 pg Mean Corpuscular Hemoglobin Concent 31.0 g/dl RDW Standard Deviation 49.7 fL RDW Coefficient of Variation 15.6 % Platelet Count 329 K/uL Mean Platelet Volume 9.9 fL Nucleated RBC Absolute Count (auto) 0.07 K/uL Nucleated Red Blood Cells % 0.5 % Sodium Level 135 mmol/L Potassium Level 3.6 mmol/L Chloride Level 93 mmol/L Carbon Dioxide Level 39 mmol/L Anion Gap 3.0 mmol/L Blood Urea Nitrogen 30 mg/dl Creatinine 0.83 mg/dl Est Creatinine Clear Calc Drug Dose 91.1 ml/min Estimated GFR () 97.7 Estimated GFR (Non- 84.3 BUN/Creatinine Ratio 36.0 Random Glucose 134 mg/dl Calcium Level 8.5 mg/dl Magnesium Level 2.4 mg/dl Bedside Glucose 136 mg/dl (Cecelia Lanier ., PA-C) Assessment and Plan 76 y/o male with a history of a-fib, HTN, HLD, CAD, right sided heart failure, COPD, and DM II who presented to the ED on 12/06 with respiratory failure and syncope. Pt intubated by ED physician. Head CT negative. Chest CTA negative for PE. CXR shows bilateral patchy infiltrates. EKG shows a-fib with RVR, no acute ischemic changes. Troponin negative. WBC WNL. INR 1.5. Sodium 126. Lactic acid 2.7. LFTs elevated. POC ABG shows pH 7.25, pCO2 80, pO2 173 and HCO3 35. Sepsis and acute respiratory failure secondary to pneumonia--improving -Admit to ICU. Pt intubated in ED, extubated 12/09. Transferred to tele 12/11. Pt in a-fib overnight with HR 100s-150s -Stop cefepime 2 gm IV q8h, course completed -Azithromycin 500 mg PO qd. Day #4/5 per ICU recs -Lactic acid 2.7 on admission, improved to 0.9 -Blood cultures negative -Pt 97% on 2L, which is his home O2 requirement -WBC stable at 13. Likely secondary to steroids Syncope--unclear etiology -Echo shows EF 60-65%. No WMA. A-fib. -Cardiac enzymes negative A-fib with RVR--ongoing -Magnesium 2.5 -Continue ASA 81 mg PO qd, diltiazem 360 mg PO qd, Lopressor 100 mg PO BID, and Xarelto 20 mg PO qd -Cardiology consulted, appreciate recs: Increase amiodarone to BID. Check TSH and T4. Will also restart spironolactone. -Increase amiodarone to 200 mg PO BID -TSH and T4 WNL -Start spironolactone 25 mg PO qd COPD with exacerbation--improving -Xopenex/Atrovent nebs QIDR, Advair BID -D/C Solu-Medrol -Prednisone taper: 60 mg PO, then decrease by 10 mg q2d. Received 60 mg today , will decrease to 50 mg 12/14 Acute on chronic right-sided heart failure with diastolic dysfunction--improving -Continue home Lasix 80 mg PO qam and 40 mg PO QDD -UO 1175, net balance -335 -Spironolactone as above -Daily weights, I's and O's -Renal function stable Mild LFT elevation, elevated INR likely secondary to sepsis--improving -Continue to monitor HTN--stable. Pt did develop hypotension in ED, but BP now WNL -Lopressor 100 mg PO BID ([facility] 100 mg PO TID) HLD -Simvastatin 10 mg PO qd DM II--last HgbA1c checked 10/07/16 was 6.2 -Insulin sliding scale -Check BSGs q ac and qhs Severe protein calorie malnutrition--stable -Added boost glucose control, MVI, etc. Hypokalemia--resolved -Replace prn -Potassium 3.6 on 12/13. Give additional 20 mEq KCl x1 on top of scheduled 10 mEq BID. Goal potassium over 4 Acute on chronic anemia--improving -Baseline Hgb 12-13 -Hgb stable -Unknown etiology, previous iron studies 2014 WNL Right great toe pain--improved/resolved -Suspected secondary to gout, improved after colchicine -Toe x-ray negative for acute fractures. Shows chronic and degenerative changes -Received Colchicine 0.4mg q1h x 3 doses. DVT prophylaxis -Xarelto -ALPHONSO burrell and SCDs Code Status -Level I, FULL RESUSCITATION STATUS Dispo -PT recommends skilled rehab. Pt agreeable to [facility]. Referral placed, awaiting determination. Will need insurance auth -Continued hospitalization due to a-fib with RVR (Cecelia Lanier ., STEVEN) Reviewed: Pt Seen/Exam by Me (Concepcion Bazan MD) History Physician [employer]il[employer] Supervision Note: I interviewed and examined the patient. Discussed with KAMILAH Lanier and agree with findings and plan as documented in the note. Any exceptions or clarifications are listed here: Pt feels well, dry cough, no other concerns. Rates still in 110sto 120s but improved from previous Tele reviewed, vitals reviewed NAD, sitting in wheelchair irreg irreg, tachy, no mgr decreased BS at bases bilat, faint exp wheezes diffusely Abd +BS soft , obese, NT ND Ext 2+ pitting edema to thighs bilat 76 yo male with a h/o CAD, Afib, COPD, HTN, DMII, CHF, HL, here with acute on chronic hypercapnic and hypoxemic respiratory failure requiring intubation, PNA/ HCAP, and rapid a-fib. -appreciate Cardio recommendations -continue increased dose of amiodarone 200mg bid, continue dilt and metoprolol, awaiting rates to improve -continue aldactone and lasix -continue abx for PNA -follow CXR in AM Xarelto for prophylaxis Documented By: Concepcion Bazan (Concepcion Bazan MD)
[2016-12-13] MEDS ORDERED: FUROSEMIDE 40 MG TAB PO ONE (13:30)
--- NOTE | 2016-12-13 13:49 | CARDIOLOGY PROGRESS NOTE ---
DATE: 12/13/2016 The patient was seen and examined. Chart, medications, and telemetry were reviewed. SUBJECTIVE: The patient denies specific complaints. He remains in atrial fibrillation with elevated ventricular response rates, but are gradually trending slightly lower. Notes no chest pains. Notes no tachypalpitations. Notes no orthopnea. Did have difficulties with CPAP working last night with intermittent dysfunction per the patient. OBJECTIVE: VITAL SIGNS: Heart rate is 100 and blood pressure is 121/83. NECK: Thick. There is no distinct jugular venous distention. LUNGS: Reveal mild crackles, basilar. CARDIOVASCULAR: Irregularly irregular. There is no S3 gallop. ABDOMEN: Obese, soft and without significant distention. EXTREMITIES: Without cyanosis or clubbing. There is 2+ lower extremity edema, left slightly greater than right. LABORATORY DATA: White cell count is 13.1 and hemoglobin is 9.3. Sodium is 135, potassium is 3.6, chloride is 93, bicarbonate is 39, BUN is 30, and creatinine is 0.83. IMPRESSION: A 76-year-old male with complex history, which includes ischemic heart disease, status post prior coronary bypass grafting, significant diastolic LV dysfunction with past diastolic heart failure, history of severe obstructive sleep apnea and past paroxysmal now persistent atrial fibrillation. The patient is requiring large dose medical therapies to maintain heart rate control. We will continue current dosing of diltiazem and metoprolol. Amiodarone has been increased to 200 mg twice per day. He is diuresing at current dosing of furosemide and spironolactone, though his furosemide will likely need to be increased past diuretic doses of over 80 mg alternating with 40 mg every other day and if the patient requires additional doses, we will give additional 40 mg p.o. today and follow.
[2016-12-13] MEDS: RIVAROXABAN 10 MG TAB PO SCH (20:09)
[2016-12-13] MEDS: SIMVASTATIN 10 MG TAB PO SCH (20:10)
[2016-12-13] MEDS: LATANOPROST 0.005% OP SOLN 2.5 ML BTL OPL SCH (20:11)
[2016-12-14] VITALS (10 sets, daily range): BP systolic 101–138; BP diastolic 70–99; PULSE 89–113; TEMP 36.5–36.7; O2SAT 91–98
[2016-12-14] MEDS: IPRATROPIUM BROMIDE NEB SOLN 0.02% 2.5 ML VIAL INH SCH ×5 (02:09→19:09)
[2016-12-14] MEDS: LEVALBUTEROL 1.25MG/0.5ML NEB INH SCH ×5 (02:09→19:09)
[2016-12-14 05:18] LABS: HEMATOCRIT 30.7 % (42-52); MEAN CORPUSCULAR HEMOGLOBIN 27.5 pg (25-34); MEAN CORPUSCULAR HGB CONC 30.9 g/dl (32-36); MEAN PLATELET VOLUME 9.8 fL (7.4-10.4); PLATELET COUNT 325 K/uL (130-400); RED BLOOD COUNT 3.45 M/uL (4.7-6.1); WHITE BLOOD COUNT 15.84 K/uL (4.8-10.8)
[2016-12-14 05:50] LABS: BUN/CREATININE RATIO 35.9 (10-20); CALCIUM 8.5 mg/dl (8.5-10.1); CREATININE 0.79 mg/dl (0.60-1.40); MAGNESIUM 2.4 mg/dl (1.8-2.4); POTASSIUM 3.4 mmol/L (3.5-5.1)
[2016-12-14] MEDS: INSULIN ASPART 100 UNITS/ML 3 ML PEN SC SCH ×4 (08:02→20:37)
[2016-12-14] MEDS: BOOST GLUCOSE CONTROL PO SCH ×3 (08:02→17:24)
[2016-12-14] MEDS ORDERED: POTASSIUM CHLORIDE 20 MEQ TABCR PO ONE ×2 (08:30→12:00)
--- NOTE | 2016-12-14 08:40 | DIAGNOSTIC IMAGING REPORT ---
CHEST 2 VIEWS ROUTINE CLINICAL HISTORY: f/u PNA pneumonitis. Tube position. COMPARISON STUDY: 12/09/2016 FINDINGS: Interval extubation. Mild stable cardiomegaly. Central catheter remains in the superior vena cava. Heart improving bilateral parenchymal infiltrative/congestive heart failure changes. Small residual left pleural effusion. Very slight blunting right lateral costophrenic angle. IMPRESSION: Improved exam. Interval extubation. Mild residual congestive failure. The above report was generated using voice recognition software. It may contain grammatical, syntax or spelling errors. Electronically signed by: Rajinder Galeana M.D. 12/14/2016 8:38 AM Dictated Date/Time: 12/14/2016 8:37 AM
[2016-12-14] MEDS: FLUTICASONE/SALMETEROL 250/50 (ADVAIR) 14 PUFF/1 INHALER INH SCH ×2 (09:00→19:55)
[2016-12-14] MEDS: FLUTICASONE PROPIONATE NA SPR 16 GM BTL SCH (09:00)
[2016-12-14] MEDS: POLYETHYLENE (MIRALAX) 17 GM PACK PO SCH (09:00)
[2016-12-14] MEDS: DILTIAZEM HCL 180 MG CAPCR PO SCH (09:01)
[2016-12-14] MEDS: SPIRONOLACTONE 25 MG TAB PO SCH (09:01)
[2016-12-14] MEDS: AMIODARONE 200 MG TAB PO SCH ×2 (09:02→19:58)
[2016-12-14] MEDS: POTASSIUM CHLORIDE 20MEQ/15ML 473ML PO SCH ×2 (09:03→19:55)
[2016-12-14] MEDS: METOPROLOL TARTRATE 100 MG TAB PO SCH ×2 (09:04→20:03)
[2016-12-14] MEDS: FUROSEMIDE 40 MG TAB PO SCH ×2 (09:04→17:23)
[2016-12-14] MEDS: GUAIFENESIN 600 MG TABCR PO SCH ×2 (09:05→19:57)
[2016-12-14] MEDS: CEROVITE ADV FORMULA TAB PO SCH (09:05)
[2016-12-14] MEDS: CYANOCOBALAMIN 100 MCG TAB (VIT B-12) PO SCH (09:06)
[2016-12-14] MEDS: AZITHROMYCIN 250 MG TAB PO SCH (09:06)
[2016-12-14] MEDS: ASPIRIN 81 MG CHEW PO SCH (09:06)
--- NOTE | 2016-12-14 10:27 | Hospitalist Progress Note ---
Hospitalist Progress Note Date of Service Dec 14, 2016. (Cecelia Lanier ., PA-C) Subjective Pt evaluation today including: conversation w/ patient, conversation w/ family ( at bedside), physical exam, chart review, lab review, review of studies, review of inpatient medication list Pain: None PO Intake: Tolerating PO diet Voiding: griffith catheter in place Patient reports feeling well. He still states that his breathing is at baseline. He still complains of a non-productive cough and some mild, intermittent wheezing. He denies any other complaints. The patient denies fevers, chills, sweats, chest pain, palpitations, claudication, shortness of breath, nausea, vomiting, abdominal pain, dysuria, hematuria, urinary retention , paralysis, weakness, numbness and tingling. Additional Comments: See HPI for pertinent positives and negatives. All other systems reviewed and negative. (Cecelia Lanier ., PA-C) Objective Vital Signs Date Time Temp Pulse Resp B/P (MAP) Pulse Ox O2 Delivery O2 Flow Rate FiO2 12/14/16 08:00 Nasal Cannula 2.0 12/14/16 07:42 91 Room Air CPAP 12/14/16 07:40 101 16 98 Nasal Cannula 2.0 12/14/16 07:24 36.7 105 18 123/87 (99) 96 CPAP 12/14/16 04:00 CPAP 2.0 12/14/16 03:11 36.6 108 19 125/92 (103) 97 CPAP 12/14/16 02:12 102 98 2.0 12/14/16 02:12 102 20 98 BiPAP/CPAP 2.0 12/13/16 23:59 Nasal Cannula 2.0 12/13/16 23:28 36.7 114 19 136/92 (107) 94 CPAP 12/13/16 22:11 90 95 2.0 12/13/16 20:00 Nasal Cannula 2.0 12/13/16 19:44 36.6 127 24 109/78 (88) 95 Nasal Cannula 2.0 12/13/16 19:12 107 16 98 Nasal Cannula 2.0 12/13/16 15:37 36.7 126 26 121/90 (100) 95 Nasal Cannula 2.0 12/13/16 14:33 97 Nasal Cannula 2.0 12/13/16 14:20 75 16 96 Nasal Cannula 2.0 12/13/16 11:08 36.7 104 22 121/83 (96) 97 Nasal Cannula 2.5 (Cecelia Lanier ., KAMILAH-C) Physical Exam Notes: General appearance: +Obese. Well-developed, well-nourished, no apparent distress Head: Normocephalic, atraumatic Eyes: Normal inspection, PERRL, EOMI ENT: Normal ENT inspection, hearing grossly normal, pharynx normal Neck: Supple, no JVD, trachea midline Respiratory/Chest: +Decreased breath sounds in bases. Lungs clear to auscultation, no respiratory distress Cardiovascular: +Irregularly irregular, tachycardic. No gallop, no murmur Abdomen/GI: Normal bowel sounds, non-tender, soft Extremities/Musculoskeletal: +2+ pitting edema. Normal inspection, no calf tenderness Neurological/Psych: Alert, normal mood/affect, oriented x 3 Skin: Normal color, warm/dry, no rash (Cecelia Lanier, KAMILAH-C) Laboratory Results Last 24 Hours Test 12/13/16 11:24 12/13/16 15:49 12/13/16 20:11 12/14/16 04:57 Bedside Glucose 131 mg/dl 148 mg/dl 166 mg/dl White Blood Count 15.84 K/uL Red Blood Count 3.45 M/uL Hemoglobin 9.5 g/dL Hematocrit 30.7 % Mean Corpuscular Volume 89.0 fL Mean Corpuscular Hemoglobin 27.5 pg Mean Corpuscular Hemoglobin Concent 30.9 g/dl RDW Standard Deviation 50.5 fL RDW Coefficient of Variation 16.0 % Platelet Count 325 K/uL Mean Platelet Volume 9.8 fL Nucleated RBC Absolute Count (auto) 0.13 K/uL Nucleated Red Blood Cells % 0.8 % Sodium Level 136 mmol/L Potassium Level 3.4 mmol/L Chloride Level 93 mmol/L Carbon Dioxide Level 38 mmol/L Anion Gap 5.0 mmol/L Blood Urea Nitrogen 28 mg/dl Creatinine 0.79 mg/dl Est Creatinine Clear Calc Drug Dose 96.1 ml/min Estimated GFR () 99.7 Estimated GFR (Non- 86.0 BUN/Creatinine Ratio 35.9 Random Glucose 101 mg/dl Calcium Level 8.5 mg/dl Magnesium Level 2.4 mg/dl Test 12/14/16 07:00 Bedside Glucose 98 mg/dl (Cecelia Lanier PA-C) Diagnostic Results Reviewed the following studies and agree with interpretation as follows: Patient Name: JOHN ACUÑA Unit Number: [id number] Dictated: 12/14/16836 Transcribed: 12/14/16836 MS Printed Date/Time: [~ rep prt dt]/[~ rep prt tm] [~ rep ct labl] - [~ rep ct ivnm] [facility] [place] [address] Dictated: 12/14/16836 Transcribed: 12/14/16836 MS Printed Date/Time: [~ rep prt dt]/[~ rep prt tm] [~ rep ct labl] - [~ rep ct ivnm] Patient: JOHN ACUÑA Address1: [address] [place] [address] Rec: [id number] Address2: Acct ID: [id number] [facility] Zip: [place] [address] Date: 1940 Sex: M Room/Bed: [facility] Ref Phy: Ken Worthington M.D. SC: C.2E Att Phy: Concepcion Bazan MD Report #: [id number] Mara Phy: Ken Worthington M.D. Test: CXR Admit Phy: Jeremy Ayala D.O. Bottom Turning Lathe Turner: [facility] Interpreting Phy: Rajinder Galeana M.D. Diagnosis: BILATERAL PNEUMONIA, RESPIRATORY FAILURE Ordering Phy: Concepcion Bazan MD Service Date: 12/14/16 Admit Date: 12/06/1709/31/17 MNE: [id number] CONF: DICTATED BY: Rajinder Galeana M.D.]] CC: Ken Worthington M.D. Tussey, Natalie B., MD Endcc: [~ rep ct add3]] CHEST 2 VIEWS ROUTINE CLINICAL HISTORY: f/u PNA pneumonitis. Tube position. COMPARISON STUDY: 12/09/2016 FINDINGS: Interval extubation. Mild stable cardiomegaly. Central catheter remains in the superior vena cava. Heart improving bilateral parenchymal infiltrative/congestive heart failure changes. Small residual left pleural effusion. Very slight blunting right lateral costophrenic angle. IMPRESSION: Improved exam. Interval extubation. Mild residual congestive failure. The above report was generated using voice recognition software. It may contain grammatical, syntax or spelling errors. Electronically signed by: Rajinder Galeana M.D. 12/14/2016 8:38 AM Dictated Date/Time: 12/14/2016 8:37 AM The status of this report is Signed. Draft = Not yet reviewed or approved by Radiologist. Signed = Reviewed and approved by Radiologist. <AttendingPhy>Concepcion Bazan MD</AttendingPhy> <FamilyPhy>Ken Worthington M.D.</FamilyPhy> <PrimaryPhy>Ken Worthington M.D.</PrimaryPhy> <UnitNumber> [id number]</UnitNumber> <VisitNumber>[id number]</VisitNumber> <PatientName> JOHN ACUÑA</PatientName> <DateOfBirth>1940</DateOfBirth> <Location> C.2E</Location> <ServiceDate>12/06/16</ServiceDate> <MNE>ESINDI</MNE> < OrderingPhy>Concepcion Bazan MD</OrderingPhy> <OrderingPhyMNE>f rep ord dr yang< /OrderingPhyMNE> <DictatingPhyMNE>f rep dict dr yang</DictatingPhyMNE> <CCListMNE >f rep ct mnyesika</CCListMNE> <AdmittingPhyMNE>f pt admit dr yang</AdmittingPhyMNE> < AttendingPhyMNE>f pt attend dr yang</AttendingPhyMNE> <ConsultingPhyMNE>f pt consult dr yang</ConsultingPhyMNE> <FamilyPhyMNE>f pt fam dr yang</FamilyPhyMNE> <OtherPhyMNE>f pt other dr yang</OtherPhyMNE> < PrimaryPhyMNE>f pt prim care dr yang</PrimaryPhyMNE> <ReferringPhyMNE>f pt referring dr yang</ReferringPhyMNE> Cecelia Copeland ., STEVEN) Assessment and Plan 76 y/o male with a history of a-fib, HTN, HLD, CAD, right sided heart failure, COPD, and DM II who presented to the ED on 12/06 with respiratory failure and syncope. Pt intubated by ED physician. Head CT negative. Chest CTA negative for PE. CXR shows bilateral patchy infiltrates. EKG shows a-fib with RVR, no acute ischemic changes. Troponin negative. WBC WNL. INR 1.5. Sodium 126. Lactic acid 2.7. LFTs elevated. POC ABG shows pH 7.25, pCO2 80, pO2 173 and HCO3 35. Sepsis and acute respiratory failure secondary to pneumonia--improving -Admit to ICU. Pt intubated in ED, extubated 12/09. Transferred to tele 12/11. Pt in a-fib overnight with HR 100s-120s with bursts of 130s-140s -Stop cefepime 2 gm IV q8h, course completed -Azithromycin 500 mg PO qd. Day #5 per ICU recs -Lactic acid 2.7 on admission, improved to 0.9 -Blood cultures negative -Leukocytosis continues to worsen, up to 15K today. Check UA, culture if indicated -Repeat CXR 12/14 shows improving PNA and mild residual congestive failure Oral candidiasis -Start nystatin 5 mL PO QID x 10 days Syncope--unclear etiology -Echo shows EF 60-65%. No WMA. A-fib. -Cardiac enzymes negative A-fib with RVR--ongoing -Magnesium 2.5 -Continue ASA 81 mg PO qd, diltiazem 360 mg PO qd, Lopressor 100 mg PO BID, and Xarelto 20 mg PO qd -Cardiology consulted, appreciate recs: Continue amiodarone BID and diltiazem at current dose. Give additional Lasix 40 mg PO x 1. -Increase amiodarone to 200 mg PO BID -TSH and T4 WNL -Start spironolactone 25 mg PO qd COPD with exacerbation--improving -Xopenex/Atrovent nebs QIDR, Advair BID -D/C Solu-Medrol -Prednisone taper: 60 mg PO, then decrease by 10 mg q2d. Prednisone 50 mg PO x2d Acute on chronic right-sided heart failure with diastolic dysfunction--improving -Continue home Lasix 80 mg PO qam and 40 mg PO QDD -Received additional 40 mg PO qd 12/13 -UO 2250, net balance -800 -Spironolactone 25 mg PO qd -Daily weights, I's and O's -Renal function stable Mild LFT elevation, elevated INR likely secondary to sepsis--resolved HTN--stable. Pt did develop hypotension in ED, but BP now WNL -Lopressor 100 mg PO BID ([facility] records indicate 100 mg PO TID) HLD -Simvastatin 10 mg PO qd DM II--last HgbA1c checked 10/07/16 was 6.2 -Insulin sliding scale -Check BSGs q ac and qhs Severe protein calorie malnutrition--stable -Added boost glucose control, MVI, etc. Hypokalemia--resolved -Replace prn, goal potassium over 4 -Potassium 3.4 on 12/14. Give KCl 40 mEq PO x 1 -Continue KCl 10 mEq PO BID Acute on chronic anemia--improving -Baseline Hgb 12-13 -Hgb stable -Unknown etiology, previous iron studies 2014 WNL Right great toe pain--improved/resolved -Suspected secondary to gout, improved after colchicine -Toe x-ray negative for acute fractures. Shows chronic and degenerative changes -Received Colchicine 0.4mg q1h x 3 doses. DVT prophylaxis -Xarelto -ALPHONSO burrell and SCDs Code Status -Level I, FULL RESUSCITATION STATUS Dispo -PT recommends skilled rehab. Pt agreeable to [facility]. Referral placed, awaiting determination. Will need insurance auth -Continued hospitalization due to a-fib with RVR (Cecelia Lanier ., STEVEN) Reviewed: Pt Seen/Exam by Me (Concepcion Bazan MD) History Physician Business Continuity Management Director Supervision Note: I interviewed and examined the patient. Discussed with KAMILAH Lanier and agree with findings and plan as documented in the note. Any exceptions or clarifications are listed here: Pt c/o some cough, swelling in legs. Rates a bit lower during mid day but now back in 110s at rest, Afib on tele Tele reviewed, vitals reviewed NAD, sitting in wheelchair irreg irreg, tachy, no mgr decreased BS at bases bilat, fairly clear otherwise Abd +BS soft , obese, NT ND Ext 2-3+ pitting edema to thighs bilat CXR image today personally reviewed by me and appears much improved, less pulm vascular congestion and infiltrate clearing 76 yo male with a h/o CAD, Afib, COPD, HTN, DMII, CHF, HL, here with acute on chronic hypercapnic and hypoxemic respiratory failure requiring intubation, PNA/ HCAP, and rapid a-fib. Continues with rapid a-fib. I believe the steroids are exacerbating this as well. -taper prednisone down quicker to 40mg daily starting tomorrow, especially as lungs sound really good today, CXR cleared up -appreciate Cardio recommendations -continue increased dose of amiodarone 200mg bid, continue dilt and metoprolol, awaiting rates to improve and may need to increase doses as per Cardio -continue aldactone and lasix-was given extra dose of IV lasix today -has completed abx for PNA today Xarelto for prophylaxis Documented By: Concepcion Bazan (Concepcion Bazan MD)
[2016-12-14] MEDS ORDERED: FUROSEMIDE INJ 40 MG in SYRINGE 0 ML IV ONE (11:00)
--- NOTE | 2016-12-14 11:17 | CARDIOLOGY PROGRESS NOTE ---
DATE: 12/14/2016 DATE: 12/14/2016 The patient seen and examined. Chart, medications, telemetry reviewed. SUBJECTIVE: The patient continues to have elevated ventricular response rate to atrial fibrillation, has ongoing complaints of peripheral edema limiting mobility. Notes no chest pains. Notes no tachypalpitations that he is aware of. Notes no syncope or near syncope. Is using CPAP at night, still moderately breathless with exertion. OBJECTIVE: VITAL SIGNS: Heart rate 100-110, blood pressure is 101/70, O2 saturations 93% on 3 liters nasal cannula. NECK: Thick. There is no distinct jugular venous distention. LUNGS: Reveal diminished breath sounds bilaterally. CARDIOVASCULAR: Irregular, irregular. There is no S3 gallop. Heart sounds are distant. ABDOMEN: Obese, soft with mild distention. EXTREMITIES: Reveal 2-3+ lower extremity edema without skin breakdown. DATA: Chest x-ray demonstrates clinical improvement from prior studies, though with persistent increase in interstitial markings and edema. LABORATORY DATA: White cell count 15.8, hemoglobin is 9.5. Sodium is 136, potassium is 3.4, chloride 98, bicarb is 38, BUN is 28, creatinine is 0.79. IMPRESSION: Complex 76-year-old male with issues as follows: 1. Atrial fibrillation with poorly controlled ventricular response rate. Medications have been adjusted upward. 2. History of diastolic heart failure with underlying ischemic heart disease. 3. History of severe obstructive sleep apnea. RECOMMENDATIONS: The patient clinically remains volume overloaded. Will give additional dose of IV furosemide today as well as supplement potassium to help correct metabolic contraction alkalosis and hypokalemia. Will follow patient in the hospital. Continue current cardiac medications for rate control though ultimately may need to increase further.
[2016-12-14] MEDS: NYSTATIN SUSP 500,000 U/5 ML UDC PO SCH ×3 (12:02→19:57)
[2016-12-14 13:16] LABS: URINE APPEARANCE CLEAR (CLEAR); URINE BILIRUBIN NEG (NEG); URINE COLOR YELLOW; URINE EPITHELIAL CELL AUTO >30 /lpf (0-5); URINE NITRITE NEG (NEG); URINE PH 7.5 (4.5-7.5); URINE SPECIFIC GRAVITY 1.017 (1.000-1.030); UROBILINOGEN NEG (NEG); ZZURINE CULT IF INDIC CATH NO
[2016-12-14 13:54] LABS: MANUAL MICROSCOPIC REQUIRED? NO; REVIEW REQ? YES; SULFASALICYLIC ACID NEG (NEG)
[2016-12-14] MEDS: LATANOPROST 0.005% OP SOLN 2.5 ML BTL OPL SCH (19:55)
[2016-12-14] MEDS: RIVAROXABAN 10 MG TAB PO SCH (19:56)
[2016-12-14] MEDS: SIMVASTATIN 10 MG TAB PO SCH (19:57)
[2016-12-15] VITALS (9 sets, daily range): BP systolic 99–152; BP diastolic 69–97; PULSE 82–119; TEMP 36.6–37; O2SAT 95–99
[2016-12-15] MEDS: IPRATROPIUM BROMIDE NEB SOLN 0.02% 2.5 ML VIAL INH SCH ×4 (02:07→19:35)
[2016-12-15] MEDS: LEVALBUTEROL 1.25MG/0.5ML NEB INH SCH ×4 (02:07→19:35)
[2016-12-15 04:43] LABS: HEMATOCRIT 32.2 % (42-52); MEAN CELL VOLUME 89.4 fL (80-100); MEAN CORPUSCULAR HEMOGLOBIN 27.8 pg (25-34); MEAN CORPUSCULAR HGB CONC 31.1 g/dl (32-36); MEAN PLATELET VOLUME 9.7 fL (7.4-10.4); PLATELET COUNT 294 K/uL (130-400); WHITE BLOOD COUNT 14.84 K/uL (4.8-10.8)
[2016-12-15 05:08] LABS: BUN/CREATININE RATIO 35.1 (10-20); CALCIUM 8.4 mg/dl (8.5-10.1); CREATININE 0.72 mg/dl (0.60-1.40); MAGNESIUM 2.4 mg/dl (1.8-2.4); POTASSIUM 3.8 mmol/L (3.5-5.1)
[2016-12-15] MEDS: BOOST GLUCOSE CONTROL PO SCH ×3 (08:44→16:45)
[2016-12-15] MEDS: INSULIN ASPART 100 UNITS/ML 3 ML PEN SC SCH ×4 (08:47→20:33)
[2016-12-15] MEDS: ASPIRIN 81 MG CHEW PO SCH (08:47)
[2016-12-15] MEDS: FLUTICASONE PROPIONATE NA SPR 16 GM BTL SCH (08:49)
[2016-12-15] MEDS: FLUTICASONE/SALMETEROL 250/50 (ADVAIR) 14 PUFF/1 INHALER INH SCH ×2 (08:49→20:33)
[2016-12-15] MEDS: SPIRONOLACTONE 25 MG TAB PO SCH (08:50)
[2016-12-15] MEDS: DILTIAZEM HCL 180 MG CAPCR PO SCH (08:51)
[2016-12-15] MEDS: AMIODARONE 200 MG TAB PO SCH ×2 (08:52→20:37)
[2016-12-15] MEDS: FUROSEMIDE 40 MG TAB PO SCH (08:52)
[2016-12-15] MEDS: POLYETHYLENE (MIRALAX) 17 GM PACK PO SCH (08:53)
[2016-12-15] MEDS: GUAIFENESIN 600 MG TABCR PO SCH ×2 (08:53→20:37)
[2016-12-15] MEDS: NYSTATIN SUSP 500,000 U/5 ML UDC PO SCH ×4 (08:54→20:35)
[2016-12-15] MEDS: CEROVITE ADV FORMULA TAB PO SCH (08:54)
[2016-12-15] MEDS: METOPROLOL TARTRATE 100 MG TAB PO SCH ×2 (08:55→20:35)
[2016-12-15] MEDS: CYANOCOBALAMIN 100 MCG TAB (VIT B-12) PO SCH (08:55)
[2016-12-15] MEDS ORDERED: DIGOXIN 0.25 MG TAB PO ONE ×2 (09:30→16:00)
--- NOTE | 2016-12-15 09:59 | CARDIOLOGY PROGRESS NOTE ---
DATE: 12/15/2016 CARDIOLOGY CONSULTATION FOLLOWUP NOTE The patient seen and examined. Chart, medications, telemetry reviewed. SUBJECTIVE: The patient feels "better" slept very well last night without interruption. Notes no chest pain or discomfort. Notes no dizziness or lightheadedness. Did diuresis yesterday with a single dose of IV furosemide of greater than 3 liters. Weight is down 2 kilograms from yesterday. OBJECTIVE: VITAL SIGNS: Heart rates 100-120, blood pressure is 136/94. NECK: Thick. There is no distinct jugular venous distention. LUNGS: Reveal better aeration to the bases. There were scattered rhonchi on forced cough. CARDIOVASCULAR: Irregularly irregular with elevated ventricular response rate. ABDOMEN: Soft, slightly less distention. EXTREMITIES: Reveal decreased edema. There was still 1-2+ lower extremity edema. LABORATORY DATA: White cell count is 14.8, hemoglobin is 10.0. Sodium is 135, potassium is 3.8, chloride is 93, bicarbonate is 38, BUN is 25, creatinine 0.72. IMPRESSION: Complex male admitted with acute pneumonia and pneumonitis, of course notable for atrial fibrillation with poorly controlled ventricular response rate despite considerable medical therapies including amiodarone 200 mg twice per day, metoprolol 100 mg twice per day, and diltiazem 360 mg every day. PLAN: We will add low-dose digoxin to the regimen. Continue to follow heart rates. Watch closely for bradycardia given significant AV node blocking drugs, underlying conduction system disease. The patient did respond to diuretics yesterday and may require additional doses during this clinical course. We will reevaluate later today.
--- NOTE | 2016-12-15 10:16 | Hospitalist Progress Note ---
Hospitalist Progress Note Date of Service Dec 15, 2016. (Cecelia Lanier ., TESSC) Subjective Pt evaluation today including: conversation w/ patient, conversation w/ family ( at bedside), physical exam, chart review, lab review, review of inpatient medication list Pain: None PO Intake: Tolerating PO diet Voiding: griffith catheter in place Patient reports feeling well. He states that his sore throat has resolved. He still complains of a mild non-productive cough and some intermittent wheezing. He also reports some numbness in his right lower extremity, which has been occurring intermittently since his right hip/pelvic fracture and surgery. The patient denies fevers, chills, sweats, chest pain, palpitations, claudication, shortness of breath, nausea, vomiting, abdominal pain, dysuria, hematuria, urinary retention, paralysis, weakness. Additional Comments: See HPI for pertinent positives and negatives. All other systems reviewed and negative. (Cecelia Lanier ., KAMILAH-C) Objective Vital Signs Date Time Temp Pulse Resp B/P (MAP) Pulse Ox O2 Delivery O2 Flow Rate FiO2 12/15/16 08:19 36.6 119 18 136/94 (108) 96 2.0 12/15/16 08:00 Nasal Cannula 2.0 12/15/16 07:14 115 16 96 BiPAP/CPAP 2.0 12/15/16 04:00 Nasal Cannula 2.0 12/15/16 03:51 36.7 101 20 144/96 (112) 95 CPAP 12/15/16 02:09 104 16 98 BiPAP/CPAP 2.0 12/15/16 02:09 104 98 2.0 12/15/16 00:01 Nasal Cannula 2.0 12/14/16 23:31 36.5 108 20 138/99 (112) 95 CPAP 12/14/16 21:44 108 97 2.0 12/14/16 20:00 Nasal Cannula 2.0 12/14/16 18:55 36.6 113 20 118/86 (97) 93 Nasal Cannula 2.0 12/14/16 16:00 Nasal Cannula 2.0 12/14/16 14:15 89 16 95 Nasal Cannula 2.0 12/14/16 12:00 Nasal Cannula 2.0 12/14/16 10:46 36.7 110 18 101/70 (80) 93 Nasal Cannula 3.0 (Cecelia Lanier ., PA-C) Physical Exam Notes: General appearance: +Obese. Well-developed, well-nourished, no apparent distress Head: Normocephalic, atraumatic Eyes: Normal inspection, PERRL, EOMI ENT: Normal ENT inspection, hearing grossly normal, pharynx normal Neck: Supple, no JVD, trachea midline Respiratory/Chest: +Decreased breath sounds in bases. Lungs clear to auscultation, no respiratory distress Cardiovascular: +Irregularly irregular, tachycardic. No gallop, no murmur Abdomen/GI: Normal bowel sounds, non-tender, soft Extremities/Musculoskeletal: +2+ pitting edema. Normal inspection, no calf tenderness Neurological/Psych: Alert, normal mood/affect, oriented x 3 Skin: Normal color, warm/dry, no rash (Cecelia Lanier ., PA-C) Laboratory Results Last 24 Hours Test 12/14/16 11:11 12/14/16 11:21 12/14/16 16:48 12/14/16 20:19 Bedside Glucose 120 mg/dl 112 mg/dl 136 mg/dl Urine Color YELLOW Urine Appearance CLEAR Urine pH 7.5 Urine Specific [place] 1.017 Urine Protein NEG Urine Glucose (UA) NEG Urine Ketones NEG Urine Occult Blood 3+ Urine Nitrite NEG Urine Bilirubin NEG Urine Urobilinogen NEG Urine Leukocyte Esterase TRACE Urine WBC (Auto) 1-5 /hpf Urine RBC (Auto) >30 /hpf Urine Hyaline Casts (Auto) 10-30 /lpf Urine Epithelial Cells (Auto) >30 /lpf Urine Bacteria (Auto) NEG Urine Renal Epithelial Cells 0-5 /lpf Test 12/15/16 04:34 12/15/16 07:00 White Blood Count 14.84 K/uL Red Blood Count 3.60 M/uL Hemoglobin 10.0 g/dL Hematocrit 32.2 % Mean Corpuscular Volume 89.4 fL Mean Corpuscular Hemoglobin 27.8 pg Mean Corpuscular Hemoglobin Concent 31.1 g/dl RDW Standard Deviation 51.0 fL RDW Coefficient of Variation 16.2 % Platelet Count 294 K/uL Mean Platelet Volume 9.7 fL Nucleated RBC Absolute Count (auto) 0.08 K/uL Nucleated Red Blood Cells % 0.5 % Sodium Level 135 mmol/L Potassium Level 3.8 mmol/L Chloride Level 93 mmol/L Carbon Dioxide Level 38 mmol/L Anion Gap 4.0 mmol/L Blood Urea Nitrogen 25 mg/dl Creatinine 0.72 mg/dl Est Creatinine Clear Calc Drug Dose 106.6 ml/min Estimated GFR () 103.6 Estimated GFR (Non- 89.3 BUN/Creatinine Ratio 35.1 Random Glucose 87 mg/dl Calcium Level 8.4 mg/dl Magnesium Level 2.4 mg/dl Bedside Glucose 97 mg/dl (Cecelia Lanier ., STEVEN) Assessment and Plan 76 y/o male with a history of a-fib, HTN, HLD, CAD, right sided heart failure, COPD, and DM II who presented to the ED on 12/06 with respiratory failure and syncope. Pt intubated by ED physician. Head CT negative. Chest CTA negative for PE. CXR shows bilateral patchy infiltrates. EKG shows a-fib with RVR, no acute ischemic changes. Troponin negative. WBC WNL. INR 1.5. Sodium 126. Lactic acid 2.7. LFTs elevated. POC ABG shows pH 7.25, pCO2 80, pO2 173 and HCO3 35. Sepsis and acute respiratory failure secondary to pneumonia--improving -Admit to ICU. Pt intubated in ED, extubated 12/09. Transferred to tele 12/11. Pt in a-fib overnight with overall HR trend between 90s-110s, but still up to 140s -Cefepime and azithromycin courses completed -Lactic acid 2.7 on admission, improved to 0.9 -Blood cultures negative -Leukocytosis improving, down to 14K 12/15 -UA negative -Repeat CXR 12/14 shows improving PNA and mild residual congestive failure Oral candidiasis--improving -Continue nystatin 5 mL PO QID. Day #2 Syncope--unclear etiology -Echo shows EF 60-65%. No WMA. A-fib. -Cardiac enzymes negative A-fib with RVR--improving -Magnesium 2.5 -Continue ASA 81 mg PO qd, diltiazem 360 mg PO qd, Lopressor 100 mg PO BID, and Xarelto 20 mg PO qd -Cardiology consulted, appreciate recs: Pt given Lasix 40 mg IV x 1 on 12/14 due to signs of fluid overload. Start digoxin -Amiodarone to 200 mg PO BID -TSH and T4 WNL -Continue spironolactone 25 mg PO qd -Start digoxin 0.25 mg PO qd, one dose now. No loading dose given. COPD with exacerbation--improving -Xopenex/Atrovent nebs QIDR, Advair BID -D/C Solu-Medrol -Prednisone taper: Will hasten taper as steroids may contribute to RVR. Start prednisone 40 mg PO 12/15, decrease by 10 mg qd Acute on chronic right-sided heart failure with diastolic dysfunction--improving -Continue home Lasix 80 mg PO qam and 40 mg PO QDD -Received additional Lasix 40 mg IV 12/14 -UO 3350, net balance -2240 on 12/14 -Spironolactone 25 mg PO qd -Daily weights, I's and O's -Renal function stable Mild LFT elevation, elevated INR likely secondary to sepsis--resolved HTN--stable. Pt did develop hypotension in ED, but BP now WNL -Lopressor 100 mg PO BID ([facility] records indicate 100 mg PO TID) HLD -Simvastatin 10 mg PO qd DM II--last HgbA1c checked 10/07/16 was 6.2 -Insulin sliding scale -Check BSGs q ac and qhs Severe protein calorie malnutrition--stable -Added boost glucose control, MVI, etc. Hypokalemia--resolved -Replace prn, goal potassium over 4 -Potassium 3.8 on 12/15 -Increase scheduled potassium to KCl 20 mEq PO BID Acute on chronic anemia--improving -Baseline Hgb 12-13 -Hgb stable -Unknown etiology, previous iron studies 2014 WNL Right great toe pain--improved/resolved -Suspected secondary to gout, improved after colchicine -Toe x-ray negative for acute fractures. Shows chronic and degenerative changes -Received Colchicine 0.4mg q1h x 3 doses. DVT prophylaxis -Xarelto -ALPHONSO hose and SCDs Code Status -Level I, FULL RESUSCITATION STATUS Dispo -PT recommends skilled rehab. Pt agreeable to [facility]. Referral placed, awaiting determination. Will need insurance auth -Continued hospitalization due to a-fib with RVR (Cecelia Lanier ., STEVEN) Reviewed: Pt Seen/Exam by Me (Concepcion Bazan MD) History Physician Marketing Analytics Specialist Supervision Note: I interviewed and examined the patient. Discussed with KAMILAH Lanier and agree with findings and plan as documented in the note. Any exceptions or clarifications are listed here: Rates better on tele after getting digoxin po today. Breathing is good. Worried about his persistent right foot drop since his hip surgery. ALPHONSO hose have not been placed since ordered yesterday Tele reviewed, vitals reviewed NAD, sitting in wheelchair irreg irreg, mildly tachy, no mgr decreased BS at bases bilat, fairly clear otherwise Abd +BS soft , obese, NT ND Ext 2-3+ pitting edema to thighs bilat, right ankle dorsiflexion 0/5 strength 76 yo male with a h/o CAD, Afib, COPD, HTN, DMII, CHF, HL, here with acute on chronic hypercapnic and hypoxemic respiratory failure requiring intubation, PNA/ HCAP, and rapid a-fib. Continues with rapid a-fib. I believe the steroids are exacerbating this as well. -taper prednisone down quicker as above, CXR improved yesterday -appreciate Cardio recommendations -continue increased dose of amiodarone 200mg bid, continue dilt and metoprolol, added digoxin 250 mcg dose today, will see if Cardio will redose tomorrow -continue aldactone and lasix-has a lot more excess fluid on him--> added Low Na + diet and 1800 mL fluid restriction, will increase lasix to 80 mg po bid -has completed abx for PNA Xarelto for prophylaxis Documented By: Concepcion Bazan (Concepcion Bazan MD)
[2016-12-15] MEDS: POTASSIUM CHLORIDE 20 MEQ TABCR PO SCH ×2 (10:29→20:36)
[2016-12-15] MEDS: FUROSEMIDE 80 MG TAB PO SCH (17:48)
[2016-12-15] MEDS: LATANOPROST 0.005% OP SOLN 2.5 ML BTL OPL SCH (20:33)
[2016-12-15] MEDS: RIVAROXABAN 10 MG TAB PO SCH (20:34)
[2016-12-15] MEDS: SIMVASTATIN 10 MG TAB PO SCH (20:37)
[2016-12-16] VITALS (14 sets, daily range): BP systolic 125–144; BP diastolic 75–96; PULSE 78–98; TEMP 36.6–36.9; O2SAT 92–98
[2016-12-16] MEDS: IPRATROPIUM BROMIDE NEB SOLN 0.02% 2.5 ML VIAL INH SCH ×4 (01:38→19:29)
[2016-12-16] MEDS: LEVALBUTEROL 1.25MG/0.5ML NEB INH SCH ×4 (01:38→19:29)
[2016-12-16 05:26] LABS: HEMATOCRIT 32.3 % (42-52); MEAN CORPUSCULAR HEMOGLOBIN 28.4 pg (25-34); MEAN CORPUSCULAR HGB CONC 31.9 g/dl (32-36); MEAN PLATELET VOLUME 10.2 fL (7.4-10.4); PLATELET COUNT 300 K/uL (130-400); RED BLOOD COUNT 3.63 M/uL (4.7-6.1); WHITE BLOOD COUNT 12.65 K/uL (4.8-10.8)
[2016-12-16 05:43] LABS: BUN/CREATININE RATIO 33.9 (10-20); CALCIUM 8.5 mg/dl (8.5-10.1); CREATININE 0.66 mg/dl (0.60-1.40); MAGNESIUM 2.3 mg/dl (1.8-2.4); POTASSIUM 3.6 mmol/L (3.5-5.1)
[2016-12-16] MEDS: INSULIN ASPART 100 UNITS/ML 3 ML PEN SC SCH ×4 (08:35→21:00)
[2016-12-16] MEDS: AMIODARONE 200 MG TAB PO SCH ×2 (08:37→21:44)
[2016-12-16] MEDS: GUAIFENESIN 600 MG TABCR PO SCH ×2 (08:37→21:45)
[2016-12-16] MEDS: SPIRONOLACTONE 25 MG TAB PO SCH (08:37)
[2016-12-16] MEDS: CEROVITE ADV FORMULA TAB PO SCH (08:37)
[2016-12-16] MEDS: NYSTATIN SUSP 500,000 U/5 ML UDC PO SCH ×4 (08:37→21:45)
[2016-12-16] MEDS: FLUTICASONE PROPIONATE NA SPR 16 GM BTL SCH (08:38)
[2016-12-16] MEDS: FLUTICASONE/SALMETEROL 250/50 (ADVAIR) 14 PUFF/1 INHALER INH SCH ×2 (08:38→21:42)
[2016-12-16] MEDS: CYANOCOBALAMIN 100 MCG TAB (VIT B-12) PO SCH (08:38)
[2016-12-16] MEDS: DILTIAZEM HCL 180 MG CAPCR PO SCH (08:39)
[2016-12-16] MEDS: METOPROLOL TARTRATE 100 MG TAB PO SCH ×2 (08:39→21:47)
[2016-12-16] MEDS: FUROSEMIDE 80 MG TAB PO SCH ×2 (08:40→16:51)
[2016-12-16] MEDS: POLYETHYLENE (MIRALAX) 17 GM PACK PO SCH (08:41)
[2016-12-16] MEDS: BOOST GLUCOSE CONTROL PO SCH ×3 (08:52→16:50)
[2016-12-16] MEDS: ASPIRIN 81 MG CHEW PO SCH (08:53)
[2016-12-16] MEDS: POTASSIUM CHLORIDE 10 MEQ TABCR PO SCH ×2 (08:53→21:46)
--- NOTE | 2016-12-16 12:36 | PROGRESS NOTE ---
DATE: 12/16/2016 CARDIOLOGY CONSULTATION FOLLOWUP NOTE The patient seen and examined. Chart, medications, telemetry reviewed. SUBJECTIVE: The patient appears improved once again this morning, had another day of brisk diuresis yesterday. Leg edema has improved, breathing has eased. Denies any chest pains, dizziness, lightheadedness, syncope or near syncope. OBJECTIVE: VITAL SIGNS: Heart rate is 93, blood pressure is 140/80, O2 saturations 95% on 2 liters nasal cannula. NECK: Thick. There is no distinct jugular venous distention. LUNGS: Reveal better aeration today. CARDIOVASCULAR: Irregular, irregular with a grade 1/6 systolic murmur at the apex and distant heart sounds. ABDOMEN: Soft, less distended. EXTREMITIES: Reveal less edema. LABORATORY DATA: White cell count is 12.6, hemoglobin is 10.3. Sodium is 134, potassium is 3.6, chloride is 93, bicarbonate is 37, BUN is 22, and creatinine is 0.66. IMPRESSION AND PLAN: A 76-year-old male with complex history seen after admission for pneumonia after complicated recent course, underlying history of ischemic heart disease; past paroxysmal, now persistent atrial fibrillation; history of longstanding diastolic and hypertensive heart disease as well as severe obstructive sleep apnea. The patient is clinically improving. Heart rates are improving predominantly with the use of increased diuretics. We will continue digoxin at lower dosing at 0.125 mg in addition to additional multiple other medications using for rate control. I have noted to the patient this would likely represent a short term response. Future considerations discussed in detail including given multiple drug usage for rate control including diltiazem, metoprolol, amiodarone now digoxin, consideration for biventricular pacemaker insertion and AV junction ablation, after initial course of care in hospital discharge manifested. The patient has responded to increased diuretic dosing. This will need to be followed closely and potassium replaced as already ordered.
[2016-12-16] MEDS ORDERED: DIGOXIN 0.125 MG TAB PO SCH (16:00)
[2016-12-16] MEDS: LATANOPROST 0.005% OP SOLN 2.5 ML BTL OPL SCH (21:42)
[2016-12-16] MEDS: SIMVASTATIN 10 MG TAB PO SCH (21:45)
[2016-12-16] MEDS: RIVAROXABAN 10 MG TAB PO SCH (21:49)
--- NOTE | 2016-12-16 22:59 | Hospitalist Progress Note ---
Hospitalist Progress Note Date of Service Dec 16, 2016. Subjective Pt evaluation today including: conversation w/ patient Pt feels well, breathing is at its baseline, is continuing to diurese, and heart rates are mostly in the normal range with continuation of digoxin today by Cardiology. All Other Systems: Reviewed and Negative Objective Vital Signs Date Time Temp Pulse Resp B/P (MAP) Pulse Ox O2 Delivery O2 Flow Rate FiO2 12/16/16 20:00 Nasal Cannula 2.0 12/16/16 19:29 89 16 98 Nasal Cannula 2.0 12/16/16 19:19 36.9 79 19 135/86 (102) 97 Nasal Cannula 2.0 12/16/16 17:20 36.9 80 21 129/75 (93) 98 Nasal Cannula 2.0 12/16/16 16:50 84 12/16/16 16:00 96 Nasal Cannula 2.0 12/16/16 14:54 78 16 96 Nasal Cannula 2.0 12/16/16 12:06 36.6 93 18 140/80 (100) 97 12/16/16 12:00 95 Nasal Cannula 2.0 12/16/16 08:00 97 Nasal Cannula 2.0 12/16/16 07:54 36.7 95 20 125/89 (101) 97 2.0 12/16/16 07:08 94 16 96 Nasal Cannula 2.0 12/16/16 04:05 36.6 87 20 144/96 (112) 92 CPAP 12/16/16 04:00 Nasal Cannula 2.0 12/16/16 01:38 88 18 94 BiPAP/CPAP 2.0 12/16/16 00:26 98 97 2.0 12/16/16 00:01 Nasal Cannula 2.0 12/15/16 23:24 36.6 97 20 152/97 (115) 98 BiPAP Physical Exam General Appearance: WD/WN, no apparent distress, + obese Eyes: normal inspection, sclerae normal ENT: hearing grossly normal Neck: trachea midline Respiratory/Chest: no respiratory distress, no accessory muscle use, + crackles (at bases), + wheezing (diffusely exp) Cardiovascular: no murmur, + irregularly irregular (with mild tachycardia), + pertinent finding (2+ pitting edema legs bilat to knees, improved from previous , now with compression stockings on) Abdomen: normal bowel sounds, non tender, soft (and obese) Extremities: no calf tenderness Neurologic/Psychiatric: alert, normal mood/affect Skin: normal color, warm/dry, no rash Laboratory Results Last 24 Hours Test 12/16/16 05:11 12/16/16 06:57 12/16/16 11:42 12/16/16 16:29 White Blood Count 12.65 K/uL Red Blood Count 3.63 M/uL Hemoglobin 10.3 g/dL Hematocrit 32.3 % Mean Corpuscular Volume 89.0 fL Mean Corpuscular Hemoglobin 28.4 pg Mean Corpuscular Hemoglobin Concent 31.9 g/dl RDW Standard Deviation 51.6 fL RDW Coefficient of Variation 16.3 % Platelet Count 300 K/uL Mean Platelet Volume 10.2 fL Sodium Level 134 mmol/L Potassium Level 3.6 mmol/L Chloride Level 93 mmol/L Carbon Dioxide Level 37 mmol/L Anion Gap 4.0 mmol/L Blood Urea Nitrogen 22 mg/dl Creatinine 0.66 mg/dl Est Creatinine Clear Calc Drug Dose 115.1 ml/min Estimated GFR () 107.3 Estimated GFR (Non- 92.6 BUN/Creatinine Ratio 33.9 Random Glucose 88 mg/dl Calcium Level 8.5 mg/dl Magnesium Level 2.3 mg/dl Bedside Glucose 99 mg/dl 108 mg/dl 125 mg/dl Test 12/16/16 20:33 Bedside Glucose 127 mg/dl Assessment and Plan This pt is a 76 yo male with a h/o CAD, Afib, COPD, HTN, DMII, 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 He was leaving rehab after a stay s/p right hip ORIF, and had a syncopal episode prior to arrival. Head CT negative. Chest CTA negative for PE. CXR shows bilateral patchy infiltrates. EKG shows a-fib with RVR, no acute ischemic changes. Troponin negative. WBC WNL. Sodium 126. Lactic acid 2.7. LFTs elevated. POC ABG shows pH 7.25, pCO2 80, pO2 173 and HCO3 35. Sepsis and acute on chronic hypoxemic and hypercapnic respiratory failure secondary to pneumonia/HCAP--much improved -Admitted to ICU after being intubated in ER. He was extubated 12/09. Transferred to [facility] 12/11. -Cefepime and azithromycin courses completed -Lactic acid 2.7 on admission, improved to 0.9 -Blood cultures negative -Leukocytosis improving, down to 12K -UA negative -Repeat CXR 12/14 shows improving PNA and mild residual congestive failure Oral candidiasis--improving -Continue nystatin 5 mL PO QID. Day #3 Syncope--likely secondary to respiratory failure, rapid A-fib -Echo shows EF 60-65%. No WMA. A-fib. -Cardiac enzymes negative A-fib with RVR/Acute on chronic right sided combined systolic and diastolic CHF- rates finally much improved after addition of digoxin. The steroids are exacerbating this as well. Significantly volume overloaded, now continues to diurese a lot each day, overall -10L this admission and weight down 7 kg -continue to taper down prednisone -appreciate Cardio recommendations -continue amiodarone 200mg bid -continue diltiazem 360mg daily, and metoprolol 100mg po bid -loaded with digoxin 0.250 mg and now on 0.125mg daily -continue aldactone 25mg daily and lasix 80mg po bid -continue Low Na+ diet and 1800 mL fluid restriction, daily weights, I/Os -continue Xarelto 20 mg PO qd for CVA prevention COPD with exacerbation/Chronic respiratory failure--improving -Xopenex/Atrovent nebs QIDR, Advair BID -Prednisone taper-decrease to 20mg daily for tomorrow HTN--stable. Pt did develop hypotension in ED, but BP now WNL -continue Lopressor, diltiazem, lasix, aldactone HLD -Simvastatin 10 mg PO qd -continue ASA DM II--last HgbA1c checked 10/07/16 was 6.2. No meds as outpt. Glucose here fairly well controlled -Insulin sliding scale -Check BSGs q ac and qhs Severe protein calorie malnutrition--stable -Added boost glucose control, MVI, etc. Hypokalemia--secondary to loop diuretic, continues to be low despite aldactone and KCl replacement -Replace prn, goal potassium over 4 -Increase scheduled potassium to KCl 30 mEq PO BID Acute on chronic anemia--hgb 7.6 on admission, likely from recent hip surgery, now improved to 10.3 -Baseline Hgb 12-13 Right great toe pain--improved/resolved -Suspected secondary to gout, improved after colchicine -Toe x-ray negative for acute fractures. Shows chronic and degenerative changes -Received Colchicine 0.4mg q1h x 3 doses. DVT prophylaxis -Xarelto -ALPHONSO burrell and SCDs PPI for stress ulcer proph Code Status -Level I, FULL RESUSCITATION STATUS Dispo -PT recommends skilled rehab. Pt agreeable to [facility]. Referral placed, awaiting determination. Will need insurance auth -Continued hospitalization due to a-fib with RVR and need for continued diuresis for 1-2 more days
[2016-12-17] VITALS (9 sets, daily range): BP systolic 126–150; BP diastolic 68–91; PULSE 70–95; TEMP 36.6–37; O2SAT 91–99
[2016-12-17] MEDS: LEVALBUTEROL 1.25MG/0.5ML NEB INH SCH ×3 (01:39→13:59)
[2016-12-17] MEDS: IPRATROPIUM BROMIDE NEB SOLN 0.02% 2.5 ML VIAL INH SCH ×3 (01:39→13:59)
[2016-12-17 06:39] LABS: HEMATOCRIT 33.4 % (42-52); MEAN CELL VOLUME 87.7 fL (80-100); MEAN CORPUSCULAR HEMOGLOBIN 27.8 pg (25-34); MEAN CORPUSCULAR HGB CONC 31.7 g/dl (32-36); MEAN PLATELET VOLUME 10.1 fL (7.4-10.4); PLATELET COUNT 302 K/uL (130-400); RED BLOOD COUNT 3.81 M/uL (4.7-6.1); WHITE BLOOD COUNT 14.19 K/uL (4.8-10.8)
[2016-12-17 07:20] LABS: BUN/CREATININE RATIO 31.8 (10-20); CALCIUM 8.3 mg/dl (8.5-10.1); CREATININE 0.77 mg/dl (0.60-1.40); MAGNESIUM 2.1 mg/dl (1.8-2.4); POTASSIUM 3.6 mmol/L (3.5-5.1)
[2016-12-17] MEDS: BOOST GLUCOSE CONTROL PO SCH ×2 (08:30→11:30)
[2016-12-17] MEDS: FLUTICASONE PROPIONATE NA SPR 16 GM BTL SCH (08:31)
[2016-12-17] MEDS: FLUTICASONE/SALMETEROL 250/50 (ADVAIR) 14 PUFF/1 INHALER INH SCH (08:31)
[2016-12-17] MEDS: SPIRONOLACTONE 25 MG TAB PO SCH (08:32)
[2016-12-17] MEDS: AMIODARONE 200 MG TAB PO SCH (08:33)
[2016-12-17] MEDS: DILTIAZEM HCL 180 MG CAPCR PO SCH (08:33)
[2016-12-17] MEDS: METOPROLOL TARTRATE 100 MG TAB PO SCH (08:34)
[2016-12-17] MEDS: POTASSIUM CHLORIDE 10 MEQ TABCR PO SCH (08:34)
[2016-12-17] MEDS: GUAIFENESIN 600 MG TABCR PO SCH (08:34)
[2016-12-17] MEDS: FUROSEMIDE 80 MG TAB PO SCH (08:34)
[2016-12-17] MEDS: NYSTATIN SUSP 500,000 U/5 ML UDC PO SCH ×2 (08:35→13:15)
[2016-12-17] MEDS: CEROVITE ADV FORMULA TAB PO SCH (08:35)
[2016-12-17] MEDS: POLYETHYLENE (MIRALAX) 17 GM PACK PO SCH (08:35)
[2016-12-17] MEDS: CYANOCOBALAMIN 100 MCG TAB (VIT B-12) PO SCH (08:36)
[2016-12-17] MEDS: ASPIRIN 81 MG CHEW PO SCH (08:40)
[2016-12-17] MEDS: INSULIN ASPART 100 UNITS/ML 3 ML PEN SC SCH ×2 (08:42→13:19)
[2016-12-17] MEDS ORDERED: POTASSIUM CHLORIDE 20 MEQ TABCR PO STA (08:44)
[2016-12-17] MEDS ORDERED: PANTOprazole SOD 40 MG TAB PO SCH (09:00)
--- NOTE | 2016-12-17 10:00 | Cardiology Follow-Up ---
Subjective Subjective Date of Service: Dec 17, 2016. Pt evaluation today including: conversation w/ patient, conversation w/ family , physical exam, chart review, lab review, review of studies, review of inpatient medication list Additional Details: Pt seen and examined, oob in chair with in room. No complaints. Denies cp, sob, palpitations, lightheadedness or dizziness. Tele reviewed: afib with rates consistently under 100 bpm Problem List Medical Problems: (1) Atrial fibrillation with rapid ventricular response Status: Acute (2) Bilateral pneumonia Status: Acute (3) Cardiac ischemia Status: Acute (4) Pulmonary congestion Status: Acute (5) Respiratory failure Status: Acute (6) Right acetabular fracture Status: Acute Review of Systems Constitutional: No fever, No chills Respiratory: + shortness of breath, + dyspnea on exertion, No cough Cardiac: + orthopnea, + PND, + edema, No chest pain Abdomen: No pain, No nausea, No vomiting, No diarrhea Skin: + new/changing skin lesions, No color change Objective Vital Signs Last Vital Signs Documentation Date Time Temp Pulse Resp B/P (MAP) Pulse Ox O2 Delivery O2 Flow Rate FiO2 12/17/16 07:26 36.6 95 18 132/82 (99) 95 Nasal Cannula 2.0 12/11/16 04:08 40 Physical Exam: General Appearance: WD/WN, no apparent distress, + obese Eyes: bilateral eyes normal inspection, bilateral eyes PERRL, bilateral eyes EOMI ENT: normal ENT inspection, pharynx normal, + pertinent finding (hard of hearing) Neck: supple, no adenopathy, thyroid normal, no JVD, no carotid bruits, trachea midline Respiratory/Chest: chest non-tender, no respiratory distress, no accessory muscle use, + rhonchi Cardiovascular: no murmur, + irregularly irregular (with mild tachycardia), + pertinent finding (2+ pitting edema legs bilat to knees, improved from previous , now with compression stockings on) Abdomen: normal bowel sounds, non tender, soft (and obese) Extremities: normal inspection, no calf tenderness Neurologic/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 atrial fibrillation chronic rates now improved with combination of metoprolol, digoxin, amio and cardizem would d/c on current doses of above may ultimately require AV gerald ablation, f/u as outpatient cont Xarelto anticoagulation ok to d/c from cardiac standpoint. Continued [facility] stay due to: abnormal vital signs, voiding difficulties, ambulation difficulties, multiple IV medications needed Discharge planning: uncertain
[2016-12-17] MEDS ORDERED: GFNSR600 PO (11:51)
[2016-12-17] MEDS ORDERED: PRD20 PO (11:51)
--- NOTE | 2016-12-17 11:56 | Discharge Instructions ---
Discharge Instructions Date of Service Dec 17, 2016. Admission Reason for Admission: Bilateral Pneumonia, Respiratory Failure Discharge Discharge Diagnosis / Problem: Sepsis Discharge Goals Goal(s): Decrease discomfort, Improve function, Improve disease control, Improve nutritional status, Diagnostic testing, Prevent Disease Progression Activity Recommendations Activity Limitations: as noted below Lifting Limitations: gradually increase as tolerated Exercise/Sports Limitations: gradually increase as tolerated Shower/Bathe: no limitations Driving or Machine Use: . Instructions / Follow-Up Instructions / Follow-Up follow up with Cardiology and PCP Current Hospital Diet Patient's current hospital diet: AHA Diet (Heart Healthy), Diabetes Type 2 Diet , Low Sodium Diet (2gm Na) Discharge Diet Recommended Diet: AHA Diet (Heart Healthy), Low Sodium Diet (2gm Na) Pending Studies Studies pending at discharge: no Laboratory Results Hemoglobin A1c Test 10/07/16 08:21 Range/Units Estimated Average Glucose 131 mg/dl Hemoglobin A1c 6.2 H 4.5-5.6 % Lipid Panel Test 10/07/16 08:21 Range/Units Triglycerides Level 137 0-150 mg/dl Cholesterol Level 107 0-200 mg/dl HDL Cholesterol 42 mg/dl Cholesterol/HDL Ratio 2.5 LDL Cholesterol, Calculated 38 mg/dl Medical Emergencies . Who to Call and When: Medical Emergencies: If at any time you feel your situation is an emergency, please call 911 immediately. . Non-Emergent Contact Non-Emergency issues call your: Primary Care Provider Call Non-Emergent contact if: temperature is above 101, you have any medication questions . . "Provider Documentation" section prepared by Maciej Elias . VTE Core Measure Inpt VTE Proph given/why not?: Enoxaparin (Lovenox)MARCO, Nicol Velasquez, SCD's
--- NOTE | 2016-12-17 12:09 | Progress Note ---
Subjective Date of Service: Dec 17, 2016. Subjective Pt evaluation today including: conversation w/ patient, physical exam, chart review, lab review, review of studies, conversation w/ sap basis consultant, review of inpatient medication list Voiding: griffith catheter in place Pt is seen and examined by me. Pt is doing well, discuss with Dr Blanco regarding decreasing lasix dose to home dose. Pt is ready for discharge to [facility]. Problem List Medical Problems: (1) Atrial fibrillation with rapid ventricular response Status: Acute (2) Bilateral pneumonia Status: Acute (3) Cardiac ischemia Status: Acute (4) Pulmonary congestion Status: Acute (5) Respiratory failure Status: Acute (6) Right acetabular fracture Status: Acute Review of Systems All Other Systems: Reviewed and Negative Medications Medications (Trade) Dose Ordered Sig/Janee Route Start Time Stop Time Status Last Admin Dose Admin Prednisone (PredniSONE TAB) 30 mg DAILY PO 12/16/16 09:00 12/16/16 22:46 DC 12/16/16 08:36 30 MG Potassium Chloride (Klor-Con M10) 30 meq BID PO 12/16/16 09:00 01/14/17 08:59 12/17/16 08:34 30 MEQ Digoxin (Lanoxin Tab) 0.125 mg DAILY@16 PO 12/16/16 16:00 01/15/17 15:59 12/16/16 16:50 0.125 MG Prednisone (PredniSONE TAB) 20 mg DAILY PO 12/17/16 09:00 01/14/17 08:59 12/17/16 08:36 20 MG Pantoprazole Sodium (Protonix Tab) 40 mg QAM PO 12/17/16 09:00 01/16/17 08:59 12/17/16 08:36 40 MG Objective Vital Signs Date Time Temp Pulse Resp B/P (MAP) Pulse Ox O2 Delivery O2 Flow Rate FiO2 12/17/16 07:26 36.6 95 18 132/82 (99) 95 Nasal Cannula 2.0 12/17/16 06:58 84 16 98 Nasal Cannula 2.0 12/17/16 04:34 37.0 85 18 150/89 (109) 99 Nasal Cannula 2.0 12/17/16 04:00 95 CPAP 2.0 12/17/16 01:39 86 16 91 Nasal Cannula 2.0 12/17/16 01:34 36.7 91 20 147/91 (109) 95 CPAP 12/16/16 23:59 95 CPAP 2.0 12/16/16 20:00 Nasal Cannula 2.0 12/16/16 19:29 89 16 98 Nasal Cannula 2.0 12/16/16 19:19 36.9 79 19 135/86 (102) 97 Nasal Cannula 2.0 12/16/16 17:20 36.9 80 21 129/75 (93) 98 Nasal Cannula 2.0 12/16/16 16:50 84 12/16/16 16:00 96 Nasal Cannula 2.0 12/16/16 14:54 78 16 96 Nasal Cannula 2.0 12/16/16 12:06 36.6 93 18 140/80 (100) 97 12/16/16 12:00 95 Nasal Cannula 2.0 Physical Exam Comments: General Appearance: WD/WN, no apparent distress, + obese Eyes: normal inspection, sclerae normal ENT: hearing grossly normal Neck: trachea midline Respiratory/Chest: + crackles , + wheezing Cardiovascular: + irregularly irregular, + pertinent finding (2+ pitting edema legs bilat to knees) Abdomen: normal bowel sounds, non tender, soft (and obese) Extremities: no calf tenderness Neurologic/Psychiatric: alert, normal mood/affect Skin: normal color, warm/dry, no rash Laboratory Results Last 24 Hours Test 12/16/16 11:42 12/16/16 16:29 12/16/16 20:33 12/17/16 06:26 Bedside Glucose 108 mg/dl 125 mg/dl 127 mg/dl White Blood Count 14.19 K/uL Red Blood Count 3.81 M/uL Hemoglobin 10.6 g/dL Hematocrit 33.4 % Mean Corpuscular Volume 87.7 fL Mean Corpuscular Hemoglobin 27.8 pg Mean Corpuscular Hemoglobin Concent 31.7 g/dl RDW Standard Deviation 51.6 fL RDW Coefficient of Variation 16.5 % Platelet Count 302 K/uL Mean Platelet Volume 10.1 fL Sodium Level 134 mmol/L Potassium Level 3.6 mmol/L Chloride Level 93 mmol/L Carbon Dioxide Level 35 mmol/L Anion Gap 6.0 mmol/L Blood Urea Nitrogen 25 mg/dl Creatinine 0.77 mg/dl Est Creatinine Clear Calc Drug Dose 96.4 ml/min Estimated GFR () 100.7 Estimated GFR (Non- 86.9 BUN/Creatinine Ratio 31.8 Random Glucose 86 mg/dl Calcium Level 8.3 mg/dl Magnesium Level 2.1 mg/dl Test 12/17/16 06:29 Bedside Glucose 94 mg/dl Assessment and Plan This pt is a 76 yo male with a h/o CAD, Afib, COPD, HTN, DMII, 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 He was leaving rehab after a stay s/p right hip ORIF, and had a syncopal episode prior to arrival. Sepsis and acute on chronic hypoxemic and hypercapnic respiratory failure secondary to pneumonia/HCAP--much improved -Admitted to ICU after being intubated in ER. He was extubated 12/09. Transferred to tele 12/11. -s/p Cefepime and azithromycin -Blood cultures negative -Leukocytosis, could be secondary to steroids -Repeat CXR 12/14 shows improving PNA and mild residual congestive failure Oral candidiasis--improving -Continue nystatin 5 mL PO QID. Day #4/ A-fib with RVR/Acute on chronic right sided combined systolic and diastolic CHF- rates finally much improved after addition of digoxin. The steroids are exacerbating this as well. Significantly volume overloaded, now continues to diurese a lot each day, overall -12L this admission and weight down 7.5 kg -continue to taper down prednisone -appreciate Cardio recommendations -continue amiodarone 200mg bid -continue diltiazem 360mg daily, and metoprolol 100mg po bid -loaded with digoxin 0.250 mg and now on 0.125mg daily -continue aldactone 25mg daily and lasix 80mg po bid -continue Low Na+ diet and 1800 mL fluid restriction, daily weights, I/Os -continue Xarelto 20 mg PO qd for CVA prevention -decrease lasix to home dose. COPD with exacerbation/Chronic respiratory failure--improving -Xopenex/Atrovent nebs QIDR, Advair BID -Prednisone taper-decrease to 10mg daily for 5 more days and than stop. HTN--stable. Pt did develop hypotension in ED, but BP now WNL -continue Lopressor, diltiazem, lasix, aldactone HLD -Simvastatin 10 mg PO qd -continue ASA DM II--last HgbA1c checked 10/07/16 was 6.2. No meds as outpt. Glucose here fairly well controlled -Insulin sliding scale -Check BSGs q ac and qhs Hypokalemia--secondary to loop diuretic, continues to be low despite aldactone and KCl replacement -Replace prn, goal potassium over 4 -Continue scheduled potassium to KCl 30 mEq PO BID - KCl 40 meq pox1 Acute on chronic anemia--hgb 7.6 on admission, likely from recent hip surgery, now improved to 10.6 -Baseline Hgb 12-13 Right great toe pain--improved/resolved -Suspected secondary to gout, improved after colchicine -Toe x-ray negative for acute fractures. Shows chronic and degenerative changes -Received Colchicine 0.4mg q1h x 3 doses. DVT prophylaxis -Xarelto -ALPHONSO burrell and SCDs PPI for stress ulcer proph Code Status -Level I, FULL RESUSCITATION STATUS Dispo - [facility] ? -Continued hospitalization due to a-fib with RVR and need for continued diuresis for 1-2 more days Thank you for allowing me to participate in this patient care. Continued [facility] stay due to: abnormal vital signs, voiding difficulties, ambulation difficulties, multiple IV medications needed Discharge planning: uncertain
--- NOTE | 2016-12-17 12:12 | Discharge Summary ---
Discharge Summary Date of Service Dec 17, 2016. Discharge Summary Admission Date: Dec 06, 2016 at 14:17 Discharge Date: Dec 17, 2016 Discharge Disposition: [facility] facility Principal Diagnosis: Sepsis Problems/Secondary Diagnoses: A.fib CHF Immunizations: Have You Had Influenza Vaccine: Yes History of Tetanus Vaccine?: No History of Pneumococcal: No History of Hepatitis B Vaccine: No Consultations: Cardiology Medication Reconciliation New Medications: Guaifenesin Ext Rel (Mucinex Ext Rel) 600 Mg Tabcr 1200 MG PO Q12 for 5 Days Prednisone (Prednisone) 20 Mg Tab 10 MG PO DAILY, #5 TAB Continued Medications: Amiodarone Hcl (Cordarone) 200 Mg Tab 1 TAB PO DAILY for 90 Days, #90 TAB 1 Refill Aspirin (Aspirin Ec) 81 Mg Tab 81 MG PO DAILY Cyanocobalamin (Vitamin B12 100 Mcg) 100 Mcg Tab 100 MCG PO DAILY, TAB Diltiazem Hcl Coated Beads (Diltiazem Hcl Er) 360 Mg Cap 360 MG PO DAILY Fluticasone Prop/Salmeterol (Advair Diskus 250/50 60 Dose) 1 Ea Aerp 1 PUFF INH BID, INHALER Fluticasone Propionate (Nasal) (Allergy Nasal [place] 24 Ho) 50 Mcg/Act Spr 2 SPRAY NA DAILY Furosemide (Lasix) 40 Mg Tab 2 TAB PO QAM, TAB Furosemide (Lasix) 40 Mg Tab 1 TAB PO QDD, TAB Ipratropium-Albuterol (Duoneb) 3 Ml Nebu 1 TREATMENT INH Q4H, INHA Latanoprost (Xalatan 0.005% Oph Fannie) 0.005 % Fannie 1 DROPS OPL HS, #7.5 ML 3 Refills Metoprolol Tartrate (Lopressor) 100 Mg Tab 100 MG PO BID, TAB Omeprazole (Prilosec) 20 Mg Capcr 20 MG PO BID, CAP Oxycodone Hcl (Oxycodone Hcl) 5 Mg Cap 1 CAP PO Q12 PRN for Pain for 30 Days, #60 CAP Potassium Chloride (Micro-K Ext Rel) 10 Meq Capcr 1 TAB PO BID, CAP Rivaroxaban (Xarelto) 20 Mg Tab 1 TAB PO HS, TAB Sennosides-Docusate Sodium (Senokot S) 1 Tab Tab 1 TAB PO QDL PRN for Consult, TAB Simvastatin (Zocor) 10 Mg Tab 10 MG PO QPM, TAB Referrals At Discharge Follow up Referrals: [facility] Referral - Within 2 Weeks with Ken Worthington M.D. 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 He was leaving rehab after a stay s/p right hip ORIF, and had a syncopal episode prior to arrival. Sepsis and acute on chronic hypoxemic and hypercapnic respiratory failure secondary to pneumonia/HCAP--much improved -Admitted to ICU after being intubated in ER. He was extubated 12/09. Transferred to tele 12/11. -s/p Cefepime and azithromycin -Blood cultures negative -Leukocytosis, could be secondary to steroids -Repeat CXR 12/14 shows improving PNA and mild residual congestive failure Oral candidiasis--improving -Continue nystatin 5 mL PO QID. Day #05/16 A-fib with RVR/Acute on chronic right sided combined systolic and diastolic CHF- rates finally much improved after addition of digoxin. The steroids are exacerbating this as well. Significantly volume overloaded, now continues to diurese a lot each day, overall -12L this admission and weight down 7.5 kg -continue to taper down prednisone -appreciate Cardio recommendations -continue amiodarone 200mg bid -continue diltiazem 360mg daily, and metoprolol 100mg po bid -loaded with digoxin 0.250 mg and now on 0.125mg daily -continue aldactone 25mg daily and lasix 80mg po bid -continue Low Na+ diet and 1800 mL fluid restriction, daily weights, I/Os -continue Xarelto 20 mg PO qd for CVA prevention -decrease lasix to home dose. COPD with exacerbation/Chronic respiratory failure--improving -Xopenex/Atrovent nebs QIDR, Advair BID -Prednisone taper-decrease to 10mg daily for 5 more days and than stop. HTN--stable. Pt did develop hypotension in ED, but BP now WNL -continue Lopressor, diltiazem, lasix, aldactone HLD -Simvastatin 10 mg PO qd -continue ASA DM II--last HgbA1c checked 10/07/16 was 6.2. No meds as outpt. Glucose here fairly well controlled -Insulin sliding scale -Check BSGs q ac and qhs Hypokalemia--secondary to loop diuretic, continues to be low despite aldactone and KCl replacement -Replace prn, goal potassium over 4 -Continue scheduled potassium to KCl 30 mEq PO BID - KCl 40 meq pox1 Acute on chronic anemia--hgb 7.6 on admission, likely from recent hip surgery, now improved to 10.6 -Baseline Hgb 12-13 Right great toe pain--improved/resolved -Suspected secondary to gout, improved after colchicine -Toe x-ray negative for acute fractures. Shows chronic and degenerative changes -Received Colchicine 0.4mg q1h x 3 doses. DVT prophylaxis -Xarelto -ALPHONSO burrell and SCDs PPI for stress ulcer proph Code Status -Level I, FULL RESUSCITATION STATUS Dispo - [facility] ? -Continued hospitalization due to a-fib with RVR and need for continued diuresis for 1-2 more days Thank you for allowing me to participate in this patient care. Total Time Spent: Greater than 30 minutes This includes examination of the patient, discharge planning, medication reconciliation, and communication with other providers. Discharge Instructions Please refer to the electronic Patient Visit Report (Discharge Instructions) for additional information. Follow-Up With primary care and cardiology Additional Copies To Ken Worthington M.D.
== END 2016-12-17 14:10 | DRG 871 ==
LOC: EDBD 11:15 → C.EDB 11:18 → C.MSICU 14:17 → EDBEDREQ 14:19 → ENRESERV 14:22 → C.2E 12-11 14:48 → C.MSICU 12-11 14:48
PROVIDERS: ADMIT Family Medicine; ATTEND Family Medicine
PROC: 5A1945Z Respiratory Ventilation, 24-96 Consecutive Hours (ICD-10-PCS; principal; 2016-12-06)
PROC: 0BH17EZ Insertion of Endotracheal Airway into Trachea, Via Natural or Artificial Opening (ICD-10-PCS; principal; 2016-12-06)
PROC: 02H633Z Insertion of Infusion Device into Right Atrium, Percutaneous Approach (ICD-10-PCS; 2016-12-07)
DX: A41.9 Sepsis, unspecified organism (principal); J18.9 Pneumonia, unspecified organism; J96.22 Acute and chronic respiratory failure with hypercapnia; J96.21 Acute and chronic respiratory failure with hypoxia; I50.43 Acute on chronic combined systolic (congestive) and diastolic (congestive) heart failure; B37.0 Candidal stomatitis; I48.1 Persistent atrial fibrillation; E87.3 Alkalosis; E43 Unspecified severe protein-calorie malnutrition; J44.0 Chronic obstructive pulmonary disease with (acute) lower respiratory infection; J44.1 Chronic obstructive pulmonary disease with (acute) exacerbation; G93.41 Metabolic encephalopathy; I25.10 Atherosclerotic heart disease of native coronary artery without angina pectoris; E78.5 Hyperlipidemia, unspecified; G47.33 Obstructive sleep apnea (adult) (pediatric); Z95.5 Presence of coronary angioplasty implant and graft; Z87.891 Personal history of nicotine dependence; E11.40 Type 2 diabetes mellitus with diabetic neuropathy, unspecified; I25.2 Old myocardial infarction; R65.20 Severe sepsis without septic shock; E87.6 Hypokalemia; I11.0 Hypertensive heart disease with heart failure; Z95.1 Presence of aortocoronary bypass graft; D64.9 Anemia, unspecified; M1A.9XX0 Chronic gout, unspecified, without tophus (tophi)

== ENCOUNTER 2017-01-16 13:22 | Inpatient (IN) | payer OTHER ==
[~2017-01-16] VITALS: Ht 170.2 cm; Wt 96.9 kg
[~2017-01-16 13:22] MED LIST changes: +AMIO200T4 PO; +CYAN100T6 PO; +DILT1CAP15 PO; -DILT240C48 PO; +FLUT50SP45; +GFNSR600 PO; -HYZ/10015 PO; -ISOS30TA3 PO; +LATA0.5S OPL; -METO-217 PO; +METO-596 PO; +OXYC1CAP5 PO; -POTA99TA PEG; +PRD20 PO; +SENN8.6T7 PO; -SPIR25TA PO; -TERA5CAP PO
[2017-01-16] MEDS ORDERED: ALBUT/IPRATROP 3MG/0.5MG NEB 3 ML VIAL INH ONE (13:45)
[2017-01-16] MEDS ORDERED: FUROSEMIDE 40 MG/4 ML VIAL IV STA (13:55)
--- NOTE | 2017-01-16 13:59 | EMERGENCY ROOM VISIT NOTE ---
History Report prepared by Ana: Nina Dutta Under the Supervision of: Dr. Huseyin Alcantara M.D. First contact with patient: 13:24 Chief Complaint: SHORTNESS OF BREATH Stated Complaint: SHORTNESS OF BREATH Nursing Triage Summary: Shortness of breath, bilateral lower extremity swelling/weaping (patient states no change from current) History of Present Illness The patient is a 76 year old male who presents to the Emergency Room with complaints of constant shortness of breath beginning this morning. The patient uses nasal cannula oxygen as needed. EMS gave the patient a breathing treatment on the way to the hospital. He notes swelling to both of his legs. The patient was recently admitted to the hospital for bilateral pneumonia. . He reports taking his Lasix this morning Source of History: patient Onset: this morning Position: other (global) Quality: other (SOB) Timing: constant Associated Symptoms: + SOB Note: He notes swelling to both of his legs Review of Systems See HPI for pertinent positives & negatives. A total of 10 systems reviewed and were otherwise negative. Past Medical & Surgical Medical Problems: (1) Acute renal failure (2) Acute renal failure (3) Afib (4) Chronic anemia (5) Chronic hypercapnic respiratory failure (6) Chronic hypoxemic respiratory failure (7) COPD (chronic obstructive pulmonary disease) (8) Coronary artery disease (9) DM II (diabetes mellitus, type II), controlled (10) Hyperlipidemia (11) Hypertension (12) WA (myocardial infarction) (13) Near syncope (14) Neuropathy (15) SANDOR (obstructive sleep apnea) (16) Severe protein-calorie malnutrition (17) Systolic and diastolic CHF, chronic Surgical Problems: (1) History of cataract surgery (2) History of coronary artery stent placement (3) History of dental implant Family History Cancer FHx: CAD (brothers) Hypertension Kidney disease Social History Smoking Status: Former Smoker Alcohol Use: occasionally Drug Use: none Marital Status: Housing Status: lives with significant other Occupation Status: retired Current/Historical Medications Scheduled Aspirin (Aspirin Ec), 81 MG PO DAILY Cyanocobalamin (Vitamin B12 100 Mcg), 100 MCG PO DAILY Diltiazem Hcl Coated Beads (Cartia Xt), 180 MG PO DAILY Fish Oil ([place]-3), 1 CAP PO DAILY Fluticasone Prop/Salmeterol (Advair Diskus 250/50 60 Dose), 1 PUFF INH BID Fluticasone Propionate (Nasal) (Allergy Nasal [place] 24 Ho), 2 SPRAY NA DAILY Furosemide (Lasix), 2 TAB PO QAM Hctz/Losartan (Hyzaar 25MG/100MG), 1 TAB PO DAILY Ipratropium-Albuterol (Duoneb), 1 TREATMENT INH Q4H Latanoprost (Xalatan 0.005% Oph Fannie), 1 DROPS OPL HS Magnesium Oxide (Magnesium), 250 MG PO DAILY Metoprolol Tartrate (Lopressor) (Lopressor), 75 MG PO BID Omeprazole (Prilosec), 20 MG PO BID Potassium Chloride (Micro-K Ext Rel), 20 MG PO TID Rivaroxaban (Xarelto), 20 MG PO HS Simvastatin (Zocor), 10 MG PO QPM Spironolactone (Aldactone), 25 MG PO BID Terazosin (Hytrin), 5 MG PO HS Scheduled PRN Albuterol Sulf (Proventil 0.083% 2.5MG/3ML), 2.5 MG INH UD PRN for Shortness of Breath Sennosides-Docusate Sodium (Senokot S), 1 TAB PO QDL PRN for Consult Allergies Coded Allergies: No Known Allergies (Verified , 01/16/17) Physical Exam Vital Signs Date Time Temp Pulse Resp B/P (MAP) Pulse Ox O2 Delivery O2 Flow Rate FiO2 01/16/17 14:40 86 25 134/71 100 Nebulizer 7.0 01/16/17 14:21 85 22 94 Nasal Cannula 2.0 01/16/17 13:55 Nasal Cannula 3.0 01/16/17 13:37 96 Nasal Cannula 3.0 01/16/17 13:37 97 Nasal Cannula 3.0 01/16/17 13:37 36.8 78 18 99/58 98 Nasal Cannula 3.0 01/16/17 13:35 77 Physical Exam GENERAL: Patient is a ill-appearing well-nourished male HEAD: Normocephalic atraumatic EYES: Ocular movements intact pupils equal and react to light OROPHARYNX mucous membranes are moist no exudates present no erythema or edema present NECK: Supple no nuchal rigidity CHEST: Good equal expansion LUNGS: Bilateral wheezin. CARDIAC: Normal S1 and S2 ABDOMEN: Soft nontender no guarding BACK: No CVA tenderness EXTREMITIES: No pain upon palpation normal muscle strength in all groups no clubbing cyanosis. 2+bilateral lower leg pitting edema NEURO: Patient is following commands and answering questions appropriately. Alert and oriented x3 Cranial Nerves 2-12 grossly intact Medical Decision & Procedures ER Provider Diagnostic Interpretation: Radiology results as stated below per my review and radiologist interpretation: CHEST ONE VIEW PORTABLE FINDINGS: Mild stable cardiomegaly. Prior median sternotomy. Findings of moderate prominence of the pulmonary vasculature. Mild right basilar atelectasis. IMPRESSION: Pulmonary vascular congestion. Improved exam from the prior study. The above report was generated using voice recognition software. It may contain grammatical, syntax or spelling errors. Electronically signed by: Rajinder Galeana M.D. Laboratory Results 01/16/17 14:05 Red Blood Count 3.34, Mean Corpuscular Volume 87.7, Mean Corpuscular Hemoglobin 27.2, Mean Corpuscular Hemoglobin Concent 31.1, Mean Platelet Volume 10.2, Neutrophils (%) (Auto) 43.8, Lymphocytes (%) (Auto) 43.6, Monocytes (%) (Auto) 11.3, Eosinophils (%) (Auto) 0.4, Basophils (%) (Auto) 0.2, Neutrophils # (Auto ) 2.37, Lymphocytes # (Auto) 2.36, Monocytes # (Auto) 0.61, Eosinophils # (Auto ) 0.02, Basophils # (Auto) 0.01 01/16/17 14:05 Test 01/16/17 14:00 01/16/17 14:05 01/16/17 16:36 Influenza Type A (RT-PCR) POS for Influ A (NEG) Influenza Type A Antigen Neg for Influ A (NEG) Influenza Type B Antigen Neg for Influ B (NEG) Influenza Type B (RT-PCR) Neg for Influ B (NEG) White Blood Count 5.41 K/uL (4.8-10.8) Red Blood Count 3.34 M/uL (4.7-6.1) Hemoglobin 9.1 g/dL (14.0-18.0) Hematocrit 29.3 % (42-52) Mean Corpuscular Volume 87.7 fL (80-100) Mean Corpuscular Hemoglobin 27.2 pg (25-34) Mean Corpuscular Hemoglobin Concent 31.1 g/dl (32-36) Platelet Count 187 K/uL (130-400) Mean Platelet Volume 10.2 fL (7.4-10.4) Neutrophils (%) (Auto) 43.8 % Lymphocytes (%) (Auto) 43.6 % Monocytes (%) (Auto) 11.3 % Eosinophils (%) (Auto) 0.4 % Basophils (%) (Auto) 0.2 % Neutrophils # (Auto) 2.37 K/uL (1.4-6.5) Lymphocytes # (Auto) 2.36 K/uL (1.2-3.4) Monocytes # (Auto) 0.61 K/uL (0.11-0.59) Eosinophils # (Auto) 0.02 K/uL (0-0.5) Basophils # (Auto) 0.01 K/uL (0-0.2) RDW Standard Deviation 52.1 fL (36.4-46.3) RDW Coefficient of Variation 16.1 % (11.5-14.5) Immature Granulocyte % (Auto) 0.7 % Immature Granulocyte # (Auto) 0.04 K/uL (0.00-0.02) Anion Gap 3.0 mmol/L (3-11) Est Creatinine Clear Calc Drug Dose 57.7 ml/min Estimated GFR () 68.8 Estimated GFR (Non- 59.4 BUN/Creatinine Ratio 19.2 (10-20) Calcium Level 8.2 mg/dl (8.5-10.1) Total Bilirubin 0.3 mg/dl (0.2-1) Aspartate Amino Transf (AST/SGOT) 19 U/L (15-37) Alanine Aminotransferase (ALT/SGPT) 32 U/L (12-78) Alkaline Phosphatase 99 U/L (45-117) Total Creatine Kinase 38 U/L (39-308) Creatine Kinase MB 2.0 ng/ml (0.5-3.6) Creatine Kinase MB Ratio 5.3 (0-3.0) Troponin I 0.016 ng/ml (0-0.045) Pro-B-Type Natriuretic Peptide 3098 pg/ml (0-1800) Total Protein 5.7 gm/dl (6.4-8.2) Albumin 2.4 gm/dl (3.4-5.0) Globulin 3.3 gm/dl (2.5-4.0) Albumin/Globulin Ratio 0.7 (0.9-2) Urine Color YELLOW Urine Appearance CLEAR (CLEAR) Urine pH 6.5 (4.5-7.5) Urine Specific [place] 1.011 (1.000-1.030) Urine Protein NEG (NEG) Urine Glucose (UA) NEG (NEG) Urine Ketones NEG (NEG) Urine Occult Blood NEG (NEG) Urine Nitrite NEG (NEG) Urine Bilirubin NEG (NEG) Urine Urobilinogen NEG (NEG) Urine Leukocyte Esterase NEG (NEG) Labs reviewed by ED physician. Medications Administered Medications (Trade) Dose Ordered Sig/Janee Route Start Time Stop Time Status Last Admin Dose Admin Albuterol/ Ipratropium (Duoneb) 12 ml ONE ONCE INH 01/16/17 13:45 01/16/17 13:47 DC 01/16/17 13:45 12 ML Furosemide (Lasix Inj) 80 mg NOW STAT IV 01/16/17 13:55 01/16/17 13:56 DC 01/16/17 14:43 80 MG ECG Indication: SOB/dyspnea Rate (beats per minute): 82 Rhythm: atrial fibrillation Findings: no ectopy Comparison ECG Date: 12/08/16 Change: no significant change ED Course 1345: Ordered Duoneb 12 ml INH. 1351: Past medical records reviewed. The patient was evaluated in room C5. A complete history and physical examination was performed. 1355: Ordered Lasix Inj 80 mg IV. 1542: Ordered Tamiflu Cap 75 mg PO. 1602: [facility] the [facility] [place] he has agreed to evaluate the patient for further management and care. Medical Decision Differential diagnosis: Etiologies such as infections, reactive airway disease, pneumonia, pneumothorax , COPD, CHF, cardiac ischemia, pulmonary embolism, musculoskeletal, gastrointestinal, as well as others were entertained. This is a 76-year-old male who presents emergency department complaining of shortness of breath. The patient has a history of bilateral pneumonia. He is positive for the flu here. The patient was given Solu-Medrol and breathing treatments by EMS however he is requiring oxygen which she is not normally on at home. The patient was given an hour-long breathing treatment as well as Tamiflu. I did discuss the case with the hospitalist service who agreed to admit the patient. Patient family were in agreement with the treatment plan. Medication Reconcilliation Current Medication List: was personally reviewed by me Blood Pressure Screening Patient's blood pressure: Elevated blood pressure Blood pressure disposition: Referred to PCP (evaluated by hospitalist) Consults Time Called: 1602 Consulting Physician: Dr. Jacobs Returned Call: 1602 I discussed the patient's case with Dr. Jacobs, he has agreed to evaluate the patient for further management and care. Impression Primary Impression: Influenza A Scribe Attestation The scribe's documentation has been prepared under my direction and personally reviewed by me in its entirety. I confirm that the note above accurately reflects all work, treatment, procedures, and medical decision making performed by me. Departure Information Dispostion Being Evaluated By Hospitalist Referrals Ken Worthington M.D. (PCP) Patient Instructions My [facility]
--- NOTE | 2017-01-16 14:07 | DIAGNOSTIC IMAGING REPORT ---
CHEST ONE VIEW PORTABLE CLINICAL HISTORY: Pt c/o SOB dyspnea COMPARISON STUDY: 12/14/2016 FINDINGS: Mild stable cardiomegaly. Prior median sternotomy. Findings of moderate prominence of the pulmonary vasculature. Mild right basilar atelectasis. IMPRESSION: Pulmonary vascular congestion. Improved exam from the prior study. The above report was generated using voice recognition software. It may contain grammatical, syntax or spelling errors. Electronically signed by: Rajinder Galeana M.D. 01/16/2017 2:06 PM Dictated Date/Time: 01/16/2017 2:05 PM
[2017-01-16 14:21] VITALS: PULSE 85; O2SAT 94
[2017-01-16 14:27] LABS: BASO % 0.2 %; BASO ABS # 0.01 K/uL (0-0.2); COMPLETE YES; EOS % 0.4 %; HEMATOCRIT 29.3 % (42-52); IG% 0.7 %; LYMPH % 43.6 %; LYMPH ABS # 2.36 K/uL (1.2-3.4); MEAN CELL VOLUME 87.7 fL (80-100); MEAN CORPUSCULAR HEMOGLOBIN 27.2 pg (25-34); MEAN CORPUSCULAR HGB CONC 31.1 g/dl (32-36); MEAN PLATELET VOLUME 10.2 fL (7.4-10.4); MONO % 11.3 %; NEUT % 43.8 %; PLATELET COUNT 187 K/uL (130-400); RED BLOOD COUNT 3.34 M/uL (4.7-6.1); WHITE BLOOD COUNT 5.41 K/uL (4.8-10.8)
[2017-01-16 14:35] LABS: BUN/CREATININE RATIO 19.2 (10-20); CALCIUM 8.2 mg/dl (8.5-10.1); CREATININE 1.17 mg/dl (0.60-1.40); POTASSIUM 4.2 mmol/L (3.5-5.1)
[2017-01-16 14:41] LABS: ALB/GLOB RATIO 0.7 (0.9-2); CKMB/CK RATIO 5.3 (0-3.0)
[2017-01-16] MEDS ORDERED: TERA5CAP PO (15:20)
[2017-01-16] MEDS ORDERED: ALBINS/ INH (15:20)
[2017-01-16] MEDS ORDERED: HYZ/10015 PO (15:20)
[2017-01-16] MEDS ORDERED: DILT180C50 PO (15:20)
[2017-01-16] MEDS ORDERED: OMEG10007 PO (15:20)
[2017-01-16] MEDS ORDERED: METO50TA16 PO (15:20)
[2017-01-16] MEDS ORDERED: MAGN250T22 PO (15:20)
[2017-01-16] MEDS ORDERED: SPIR25TA PO (15:23)
[2017-01-16 15:24] LABS: INFLUENZA A PCR POS for Influ A (NEG); INFLUENZA B PCR Neg for Influ B (NEG)
[2017-01-16] MEDS ORDERED: OSELTAMIVIR PHOSPHATE 75 MG CAP PO STA (15:42)
[2017-01-16 16:42] LABS: URINE APPEARANCE CLEAR (CLEAR); URINE COLOR YELLOW; URINE PH 6.5 (4.5-7.5); URINE SPECIFIC GRAVITY 1.011 (1.000-1.030)
[2017-01-16 16:43] LABS: URINE BILIRUBIN NEG (NEG); URINE NITRITE NEG (NEG); UROBILINOGEN NEG (NEG)
[2017-01-16] MEDS ORDERED: MAGNESIUM HYDROXIDE SUSP 30 ML UDC PO PRN (17:00)
[2017-01-16] MEDS ORDERED: ACETAMINOPHEN 325 MG TAB PO PRN (17:00)
[2017-01-16] MEDS ORDERED: POLYETHYLENE (MIRALAX) 17 GM PACK PO PRN (17:00)
[2017-01-16] MEDS ORDERED: ONDANSETRON INJ 2 MG/ML 2 ML VIAL IV PRN (17:00)
[2017-01-16 17:01] LABS: MANUAL MICROSCOPIC REQUIRED? NO; REVIEW REQ? NO
[2017-01-16] MEDS ORDERED: DOCUSATE SODIUM/SENNA 50/8.6MG TAB PO PRN (17:15)
--- NOTE | 2017-01-16 17:25 | History and Physical ---
History & Physical Date & Time of Service: Jan 16, 2017 at 16:55 Chief Complaint: Shortness Of Breath Primary Care Physician: Ken Worthington M.D. History of Present Illness Source: patient This is s a76 yo M with PMHx of COPD, chronic hypoxemia and hypercapnic respiratory failure, SANDOR on cpap, hx of pipe tobacco smoking quit in 1999, combined systolic & diastolic CHF, HTN, HLD, DM II, severe protein calorie malnutrition, afib with RVR, and chronic anemia who presents with shortness of breath and + Influenza A. Pt reports that he became acutely short of breath last evening which worsened this morning when he woke up. He denies being around any sick contacts. He denies any fever, chills or sweats at this time. He does not require supplemental O2 but needed it today per EMS. He was also noted to be acutely hypotensive with BP of 90/30. Once in the ER the patient had a BP of 99/58. The patient denies any acute complaints regarding chest pain, flutter, or palpitation. Past Medical/Surgical History Medical Problems: (1) Acute renal failure Status: Resolved (2) Acute renal failure Status: Resolved (3) Afib Status: Chronic (4) Chronic anemia Status: Chronic (5) Chronic hypercapnic respiratory failure Status: Chronic (6) Chronic hypoxemic respiratory failure Status: Chronic (7) COPD (chronic obstructive pulmonary disease) Status: Chronic (8) Coronary artery disease Status: Chronic (9) DM II (diabetes mellitus, type II), controlled Status: Chronic (10) Hyperlipidemia Status: Chronic (11) Hypertension Status: Chronic (12) SD (myocardial infarction) Status: Resolved (13) Near syncope Status: Resolved (14) Neuropathy Status: Chronic (15) SANDOR (obstructive sleep apnea) Status: Chronic (16) Severe protein-calorie malnutrition Status: Chronic Surgical Problems: (1) History of cataract surgery Status: Resolved (2) History of coronary artery stent placement Status: Resolved (3) History of dental implant Status: Resolved Family History Cancer FHx: CAD (brothers) Hypertension Kidney disease Social History Smoking Status: Former Smoker Alcohol Use: none Drug Use: none Marital Status: Housing status: lives with family, other Occupational Status: retired Immunizations History of Influenza Vaccine: Yes History of Tetanus Vaccine?: No History of Pneumococcal: No History of Hepatitis B Vaccine: No Multi-Drug Resistant Organisms History of MDRO: Yes Type of MDRO: MRSA Allergies Coded Allergies: No Known Allergies (Verified , 01/16/17) Home Medications Scheduled Aspirin (Aspirin Ec), 81 MG PO DAILY Cyanocobalamin (Vitamin B12 100 Mcg), 100 MCG PO DAILY Diltiazem Hcl Coated Beads (Cartia Xt), 180 MG PO DAILY Fish Oil ([place]-3), 1 CAP PO DAILY Fluticasone Prop/Salmeterol (Advair Diskus 250/50 60 Dose), 1 PUFF INH BID Fluticasone Propionate (Nasal) (Allergy Nasal [place] 24 Ho), 2 SPRAY NA DAILY Furosemide (Lasix), 2 TAB PO QAM Hctz/Losartan (Hyzaar 25MG/100MG), 1 TAB PO DAILY Ipratropium-Albuterol (Duoneb), 1 TREATMENT INH Q4H Latanoprost (Xalatan 0.005% Oph [place]), 1 DROPS OPL HS Magnesium Oxide (Magnesium), 250 MG PO DAILY Metoprolol Tartrate (Lopressor) (Lopressor), 75 MG PO BID Omeprazole (Prilosec), 20 MG PO BID Potassium Chloride (Micro-K Ext Rel), 20 MG PO TID Rivaroxaban (Xarelto), 20 MG PO HS Simvastatin (Zocor), 10 MG PO QPM Spironolactone (Aldactone), 25 MG PO BID Terazosin (Hytrin), 5 MG PO HS Scheduled PRN Albuterol Sulf (Proventil 0.083% 2.5MG/3ML), 2.5 MG INH UD PRN for Shortness of Breath Sennosides-Docusate Sodium (Senokot S), 1 TAB PO QDL PRN for Consult Review of Systems Constitutional: No fever, No chills, No sweats Eyes: No redness, No diplopia ENT: No nasal symptoms, No sore throat, No trouble swallowing Respiratory: + wheezing, + shortness of breath, + dyspnea on exertion, No cough , No sputum, No dyspnea at rest Cardiovascular: + edema (lower legs bilaterally), No chest pain, No orthopnea, No palpitations Abdomen: No pain, No nausea, No vomiting, No diarrhea, No constipation Musculoskeletal: + swelling, No joint pain Genitourinary - Male: + urinary retention, No hematuria, No dysuria Neurologic: No numbness/tingling Psychiatric: No depression symptoms, No anxiety Endocrine: No fatigue Integumentary: No rash, No itch Physical Exam Vital Signs Date Time Temp Pulse Resp B/P (MAP) Pulse Ox O2 Delivery O2 Flow Rate FiO2 01/16/17 14:40 86 25 134/71 100 Nebulizer 7.0 01/16/17 14:21 85 22 94 Nasal Cannula 2.0 01/16/17 13:55 Nasal Cannula 3.0 01/16/17 13:37 96 Nasal Cannula 3.0 01/16/17 13:37 97 Nasal Cannula 3.0 01/16/17 13:37 36.8 78 18 99/58 98 Nasal Cannula 3.0 01/16/17 13:35 77 General Appearance: WD/WN, no apparent distress Head: normocephalic, atraumatic Eyes: PERRL, EOMI ENT: hearing grossly normal, pharynx normal Neck: supple, no JVD Respiratory/Chest: + pertinent finding (on 2 L via NC, coarse breath sounds throughout, + inspiratory and exp breath sounds, no cough. ) Cardiovascular: + tachycardia, + irregularly irregular Abdomen/GI: normal bowel sounds, non tender, soft Back: no CVA tenderness Extremities/Musculoskelatal: no calf tenderness, + pedal edema (2+ pitting edema up to knees bilaterally) Neurologic/Psych: alert, normal mood/affect, oriented x 3 Skin: normal color, warm/dry Diagnostics Laboratory Results Results Past 24 Hours Test 01/16/17 13:44 01/16/17 14:00 01/16/17 14:05 01/16/17 16:36 Range/Units Influenza Type A (RT-PCR) POS for Influ A NEG Influenza Type A Antigen Neg for Influ A NEG Influenza Type B Antigen Neg for Influ B NEG Influenza Type B (RT-PCR) Neg for Influ B NEG White Blood Count 5.41 4.8-10.8 K/uL Red Blood Count 3.34 4.7-6.1 M/uL Hemoglobin 9.1 14.0-18.0 g/dL Hematocrit 29.3 42-52 % Mean Corpuscular Volume 87.7 80-100 fL Mean Corpuscular Hemoglobin 27.2 25-34 pg Mean Corpuscular Hemoglobin Concent 31.1 32-36 g/dl Platelet Count 187 130-400 K/uL Mean Platelet Volume 10.2 7.4-10.4 fL Neutrophils (%) (Auto) 43.8 % Lymphocytes (%) (Auto) 43.6 % Monocytes (%) (Auto) 11.3 % Eosinophils (%) (Auto) 0.4 % Basophils (%) (Auto) 0.2 % Neutrophils # (Auto) 2.37 1.4-6.5 K/uL Lymphocytes # (Auto) 2.36 1.2-3.4 K/uL Monocytes # (Auto) 0.61 0.11-0.59 K/uL Eosinophils # (Auto) 0.02 0-0.5 K/uL Basophils # (Auto) 0.01 0-0.2 K/uL RDW Standard Deviation 52.1 36.4-46.3 fL RDW Coefficient of Variation 16.1 11.5-14.5 % Immature Granulocyte % (Auto) 0.7 % Immature Granulocyte # (Auto) 0.04 0.00-0.02 K/uL Sodium Level 139 136-145 mmol/L Potassium Level 4.2 3.5-5.1 mmol/L Chloride Level 101 98-107 mmol/L Carbon Dioxide Level 35 21-32 mmol/L Anion Gap 3.0 3-11 mmol/L Blood Urea Nitrogen 22 7-18 mg/dl Creatinine 1.17 0.60-1.40 mg/dl Est Creatinine Clear Calc Drug Dose 57.7 ml/min Estimated GFR () 68.8 Estimated GFR (Non- 59.4 BUN/Creatinine Ratio 19.2 10-20 Random Glucose 92 70-99 mg/dl Calcium Level 8.2 8.5-10.1 mg/dl Total Bilirubin 0.3 0.2-1 mg/dl Aspartate Amino Transf (AST/SGOT) 19 15-37 U/L Alanine Aminotransferase (ALT/SGPT) 32 12-78 U/L Alkaline Phosphatase 99 45-117 U/L Total Creatine Kinase 38 39-308 U/L Creatine Kinase MB 2.0 0.5-3.6 ng/ml Creatine Kinase MB Ratio 5.3 0-3.0 Troponin I 0.016 0-0.045 ng/ml Pro-B-Type Natriuretic Peptide 3098 0-1800 pg/ml Total Protein 5.7 6.4-8.2 gm/dl Albumin 2.4 3.4-5.0 gm/dl Globulin 3.3 2.5-4.0 gm/dl Albumin/Globulin Ratio 0.7 0.9-2 Diagnostic Radiology CHEST ONE VIEW PORTABLE CLINICAL HISTORY: Pt c/o SOB dyspnea COMPARISON STUDY: 12/14/2016 FINDINGS: Mild stable cardiomegaly. Prior median sternotomy. Findings of moderate prominence of the pulmonary vasculature. Mild right basilar atelectasis. IMPRESSION: Pulmonary vascular congestion. Improved exam from the prior study. The above report was generated using voice recognition software. It may contain grammatical, syntax or spelling errors. Electronically signed by: Rajinder Galeana M.D. 01/16/2017 2:06 PM Dictated Date/Time: 01/16/2017 2:05 PM The status of this report is Signed. EKG Atrial fibrillation Nonspecific T wave abnormality Abnormal ECG When compared with ECG of 08-DEC-2016 08:38, Vent. rate has decreased BY [address] no longer depressed in Anterior leads Vent. rate 82 BPM W[place] interval * ms QRS duration 82 ms QT/QTc 366/427 ms P-R-T axes * 35 62 Impression Assessment and Plan (1) Influenza A Assessment & Plan: - Admit to tele - Supportive care with pulmonary toilet, supplemental o2, start tamiflu 75 mg BID - Continue home cpap QHS - Nebs Q6H and Q2H prn for sob - No WBC, chemistry panel wnl, afebrile - CXR reviewed - in past month was treated for a bilateral pneumonia - Cough nonproductive so no sputum culture at this time - PT/OT consulted - lives at home with (2) Hypotension Assessment & Plan: Initially in 90/30 per EMS report, but has improved at this point - Pt not on fluids due to CHF combined type - Lasix ordered for tomorrow morning as normal [employer] meds - 80 mg QAM since pt has significant LE edema. If BP were to remain low overnight would start gentle hydration and hold am lasix. (3) Chronic hypoxemic respiratory failure (4) Chronic hypercapnic respiratory failure (5) COPD (chronic obstructive pulmonary disease) Assessment & Plan: - Continue home cpap - Continue advair inhaler - Nebs Q6H and Q2H prn (6) Systolic and diastolic CHF, chronic Assessment & Plan: - BNP elevated > 3000 - Continue on home Lasix 80 mg Qam at this time, monitor with BP overnight and if BP were to remain low then would hold AM lasix. - Holding lopressor with hypotension, hyzaar, and terazosin - Continue spironolactone - Last ECHO completed 12/07/16 1. Normal left ventricular size and systolic function. EF 60-65%. No regional wall motion abnormalities. Mild to moderate concentric left ventricular hypertrophy. * 2. Moderately dilated right ventricle with mildly reduced systolic function. * 3. Moderate right atrial dilation. Mild left atrial dilation. * 4. Mild mitral regurgitation. * 5. Sclerotic aortic valve without significant stenosis. * 6. Mildly elevated right ventricular systolic pressure; estimated RVSP 43 mmHg. * 7. Technically difficult study, enhanced with IV Definity. * 8. Atrial fibrillation. * 9. Compared to prior study on 05/27/2015, RVSP is now mildly elevated. (7) Afib Assessment & Plan: - Chronic - Continue cardizem 180 mg daily, asa 81 mg and xarelto for anticoagulation - Rate in the 120s during exam at bedside, pt denies any symptoms such as lightheadedness, dizziness, palpitations or flutter (8) Hypertension Assessment & Plan: - Initially hypotensive , seems to have improved slightly at this time with SBP in high 90s - Hold Lopressor, hyzaar, and terazosin - Continue spironolactone and lasix at this time due to significant BLE edema (9) Hyperlipidemia Assessment & Plan: - Cont simvastatin 10 mg daily (10) Chronic anemia Assessment & Plan: - Hgb 9.1, follow am labs - Chronic anemia where pt normally runs 10-12 (11) Severe protein-calorie malnutrition Assessment & Plan: - Albumin low= 2.4 - Pt drinks 1 Boost per day at home already - reports attempting to eat more protein (12) SANDOR (obstructive sleep apnea) - Uses nasal cpap at home, ordered for set up here since family has left and was not planning on returning tonight Level of Care Telemetry Resuscitation Status FULL RESUSCITATION VTE Prophylaxis VTE Risk Assessment Done? Y/N: Yes Risk Level: Very Low Given or contraindicated: Other Anticoagulation, T.E.D. Stockings, SCD's Problem Qualifiers (1) COPD (chronic obstructive pulmonary disease): COPD type: unspecified COPD Qualified Codes: J44.9 - Chronic obstructive pulmonary disease, unspecified (2) Hypertension: Hypertension type: essential hypertension Qualified Codes: I10 - Essential ( primary) hypertension
[2017-01-16] MEDS ORDERED: OSELTAMIVIR PHOSPHATE 75 MG CAP PO ONE (17:58)
[2017-01-16 18:30] VITALS: BP 107/65; PULSE 109; TEMP 36.5; Ht 170.2 cm; Wt 96.9 kg
[2017-01-16 19:03] VITALS: PULSE 83; O2SAT 94
[2017-01-16] MEDS: LEVALBUTEROL 1.25MG/3ML NEB INH SCH (19:03)
[2017-01-16] MEDS ORDERED: METOPROLOL TARTRATE 1 MG/ML VIAL IV PRN (20:00)
[2017-01-16] MEDS: FLUTICASONE/SALMETEROL 250/50 (ADVAIR) 14 PUFF/1 INHALER INH SCH ×2 (21:00→21:22)
[2017-01-16] MEDS: SIMVASTATIN 10 MG TAB PO SCH (21:21)
[2017-01-16] MEDS: PANTOprazole SOD 40 MG TAB PO SCH (21:21)
[2017-01-16] MEDS: OSELTAMIVIR PHOSPHATE 75 MG CAP PO SCH (21:21)
[2017-01-16] MEDS: RIVAROXABAN 10 MG TAB PO SCH (21:21)
[2017-01-16] MEDS: LATANOPROST 0.005% OP SOLN 2.5 ML BTL OPL SCH (21:22)
[2017-01-16 23:35] VITALS: BP 134/62; PULSE 107; TEMP 36.5; O2SAT 98
[2017-01-17] VITALS (11 sets, daily range): BP systolic 113–152; BP diastolic 63–80; PULSE 92–123; TEMP 36.5–36.8; O2SAT 91–97
[2017-01-17] MEDS: LEVALBUTEROL 1.25MG/3ML NEB INH SCH ×4 (01:59→19:05)
[2017-01-17 06:28] LABS: COMPLETE YES; HEMATOCRIT 31.4 % (42-52); IG% 0.5 %; LYMPH % 13.7 %; LYMPH ABS # 0.52 K/uL (1.2-3.4); MEAN CELL VOLUME 87.7 fL (80-100); MEAN CORPUSCULAR HEMOGLOBIN 27.1 pg (25-34); MEAN CORPUSCULAR HGB CONC 30.9 g/dl (32-36); MONO % 2.9 %; NEUT % 82.9 %; PLATELET COUNT 199 K/uL (130-400); RED BLOOD COUNT 3.58 M/uL (4.7-6.1); WHITE BLOOD COUNT 3.79 K/uL (4.8-10.8)
[2017-01-17 06:52] LABS: BUN/CREATININE RATIO 19.4 (10-20); CALCIUM 8.6 mg/dl (8.5-10.1); CREATININE 1.13 mg/dl (0.60-1.40); POTASSIUM 3.9 mmol/L (3.5-5.1)
[2017-01-17] MEDS: POTASSIUM CHLORIDE 10 MEQ TABCR PO SCH ×3 (08:06→16:39)
[2017-01-17] MEDS: FLUTICASONE PROPIONATE NA SPR 16 GM BTL SCH (08:07)
[2017-01-17] MEDS: MAGNESIUM OXIDE 400 MG TAB PO SCH (08:08)
[2017-01-17] MEDS: FLUTICASONE/SALMETEROL 250/50 (ADVAIR) 14 PUFF/1 INHALER INH SCH ×2 (08:08→21:00)
[2017-01-17] MEDS: ASPIRIN 81 MG ECTAB PO SCH (08:08)
[2017-01-17] MEDS: SPIRONOLACTONE 25 MG TAB PO SCH ×2 (08:08→16:39)
[2017-01-17] MEDS: DILTIAZEM HCL 180 MG CAPCR PO SCH (08:09)
[2017-01-17] MEDS: PANTOprazole SOD 40 MG TAB PO SCH ×2 (08:09→21:19)
[2017-01-17] MEDS: FUROSEMIDE 80 MG TAB PO SCH (08:10)
[2017-01-17] MEDS: OSELTAMIVIR PHOSPHATE 75 MG CAP PO SCH ×2 (08:10→21:19)
[2017-01-17] MEDS: CYANOCOBALAMIN 100 MCG TAB (VIT B-12) PO SCH (08:10)
[2017-01-17] MEDS: OMEGA-3 (PURIFIED FISH OIL) 1 GM CAP PO SCH (08:10)
[2017-01-17] MEDS ORDERED: BOOST VANILLA PO SCH ×2 (09:00)
--- NOTE | 2017-01-17 11:13 | Medical Student: [facility] ---
Med Student Progress Note Date of Service Jan 17, 2017. Subjective Pt evaluation today including: conversation w/ patient, physical exam, chart review, lab review, review of studies, review of inpatient medication list Voiding: no voiding problems 76 year old male with a history of COPD, SANDOR, CHF, HTN, T2DM, and AFIB with RVR presenting to ER on 01/16 with shortness of breath for 1 day. Had blood pressure of 90/30 when EMS arrived. Was found to have influenza A in ER. Sick contact . Chest X-ray showed pulmonary vascular congestion, EKG AFIB without acute change. He was started on Tamoflu, supplemental O2, duonebs, home advair. His home BP medications were held and fluidds were not given due to CHF. Was given Lasix and lost 1.5L over the hospital stay. Today he is in mild respiratory distress on 2L NC. He has chronic swelling in right extremity from lyphedema following hip surgery. No pain in that leg. He denies any chest pain, cough, fever, chills, myalgias. Review of Systems Constitutional: No fever, No chills Respiratory: + wheezing, + shortness of breath, + dyspnea on exertion, + dyspnea at rest, No cough, No sputum, No hemoptysis Cardiac: + orthopnea, + edema, No chest pain, No palpitations Abdomen: No pain, No nausea, No vomiting, No diarrhea Male : No dysuria, No incontinence Skin: No rash, No itch All Other Systems: Reviewed and Negative Objective Vital Signs Date Time Temp Pulse Resp B/P (MAP) Pulse Ox O2 Delivery O2 Flow Rate FiO2 01/17/17 08:00 Nasal Cannula 3.0 01/17/17 07:54 96 20 95 Nasal Cannula 2.0 01/17/17 07:36 36.8 104 20 142/69 (93) 95 01/17/17 04:00 108 01/17/17 04:00 Nasal Cannula 3.0 01/17/17 03:45 36.5 120 24 146/69 (94) 96 Nasal Cannula 2.0 01/17/17 01:59 106 20 97 Nasal Cannula 2.0 01/16/17 23:35 36.5 107 23 134/62 (86) 98 Room Air 01/16/17 23:21 Nasal Cannula 3.0 01/16/17 20:18 123 113/74 01/16/17 19:03 83 20 94 Nasal Cannula 2.5 01/16/17 18:30 36.5 109 25 107/65 Nasal Cannula 3.0 98 01/16/17 18:06 87 110/63 96 01/16/17 17:47 87 95/58 94 Room Air 01/16/17 14:40 86 25 134/71 100 Nebulizer 7.0 01/16/17 14:21 85 22 94 Nasal Cannula 2.0 01/16/17 13:55 Nasal Cannula 3.0 01/16/17 13:37 96 Nasal Cannula 3.0 01/16/17 13:37 97 Nasal Cannula 3.0 01/16/17 13:37 36.8 78 18 99/58 98 Nasal Cannula 3.0 01/16/17 13:35 77 Physical Exam General Appearance: + mild distress, + obese Eyes: bilateral eyes normal inspection, bilateral eyes EOMI ENT: hearing grossly normal, pharynx normal Neck: supple, no JVD Respiratory/Chest: chest non-tender, no accessory muscle use, + respiratory distress, + wheezing (inspiratory and expiratory) Cardiovascular: no gallop, no JVD, no murmur, + tachycardia, + irregularly irregular Abdomen: normal bowel sounds, non tender, soft, no organomegaly, no pulsatile mass Extremities: non-tender, no calf tenderness, + pedal edema (Right leg is significantly swollen, but this is a chronic issue, left leg has mild +1 pitting edema) Neurologic/Psychiatric: alert, normal mood/affect, oriented x 3 Skin: normal color, warm/dry, no rash Laboratory Results Last 24 Hours Test 01/16/17 14:00 01/16/17 14:05 01/16/17 16:36 01/16/17 20:10 Influenza Type A (RT-PCR) POS for Influ A Influenza Type A Antigen Neg for Influ A Influenza Type B Antigen Neg for Influ B Influenza Type B (RT-PCR) Neg for Influ B White Blood Count 5.41 K/uL Red Blood Count 3.34 M/uL Hemoglobin 9.1 g/dL Hematocrit 29.3 % Mean Corpuscular Volume 87.7 fL Mean Corpuscular Hemoglobin 27.2 pg Mean Corpuscular Hemoglobin Concent 31.1 g/dl Platelet Count 187 K/uL Mean Platelet Volume 10.2 fL Neutrophils (%) (Auto) 43.8 % Lymphocytes (%) (Auto) 43.6 % Monocytes (%) (Auto) 11.3 % Eosinophils (%) (Auto) 0.4 % Basophils (%) (Auto) 0.2 % Neutrophils # (Auto) 2.37 K/uL Lymphocytes # (Auto) 2.36 K/uL Monocytes # (Auto) 0.61 K/uL Eosinophils # (Auto) 0.02 K/uL Basophils # (Auto) 0.01 K/uL RDW Standard Deviation 52.1 fL RDW Coefficient of Variation 16.1 % Immature Granulocyte % (Auto) 0.7 % Immature Granulocyte # (Auto) 0.04 K/uL Sodium Level 139 mmol/L Potassium Level 4.2 mmol/L Chloride Level 101 mmol/L Carbon Dioxide Level 35 mmol/L Anion Gap 3.0 mmol/L Blood Urea Nitrogen 22 mg/dl Creatinine 1.17 mg/dl Est Creatinine Clear Calc Drug Dose 57.7 ml/min Estimated GFR () 68.8 Estimated GFR (Non- 59.4 BUN/Creatinine Ratio 19.2 Random Glucose 92 mg/dl Calcium Level 8.2 mg/dl Total Bilirubin 0.3 mg/dl Aspartate Amino Transf (AST/SGOT) 19 U/L Alanine Aminotransferase (ALT/SGPT) 32 U/L Alkaline Phosphatase 99 U/L Total Creatine Kinase 38 U/L Creatine Kinase MB 2.0 ng/ml Creatine Kinase MB Ratio 5.3 Troponin I 0.016 ng/ml Pro-B-Type Natriuretic Peptide 3098 pg/ml Total Protein 5.7 gm/dl Albumin 2.4 gm/dl Globulin 3.3 gm/dl Albumin/Globulin Ratio 0.7 Urine Color YELLOW Urine Appearance CLEAR Urine pH 6.5 Urine Specific [place] 1.011 Urine Protein NEG Urine Glucose (UA) NEG Urine Ketones NEG Urine Occult Blood NEG Urine Nitrite NEG Urine Bilirubin NEG Urine Urobilinogen NEG Urine Leukocyte Esterase NEG Test 01/17/17 05:58 White Blood Count 3.79 K/uL Red Blood Count 3.58 M/uL Hemoglobin 9.7 g/dL Hematocrit 31.4 % Mean Corpuscular Volume 87.7 fL Mean Corpuscular Hemoglobin 27.1 pg Mean Corpuscular Hemoglobin Concent 30.9 g/dl Platelet Count 199 K/uL Mean Platelet Volume 10.0 fL Neutrophils (%) (Auto) 82.9 % Lymphocytes (%) (Auto) 13.7 % Monocytes (%) (Auto) 2.9 % Eosinophils (%) (Auto) 0.0 % Basophils (%) (Auto) 0.0 % Neutrophils # (Auto) 3.14 K/uL Lymphocytes # (Auto) 0.52 K/uL Monocytes # (Auto) 0.11 K/uL Eosinophils # (Auto) 0.00 K/uL Basophils # (Auto) 0.00 K/uL RDW Standard Deviation 50.6 fL RDW Coefficient of Variation 15.6 % Immature Granulocyte % (Auto) 0.5 % Immature Granulocyte # (Auto) 0.02 K/uL Sodium Level 136 mmol/L Potassium Level 3.9 mmol/L Chloride Level 97 mmol/L Carbon Dioxide Level 35 mmol/L Anion Gap 4.0 mmol/L Blood Urea Nitrogen 22 mg/dl Creatinine 1.13 mg/dl Est Creatinine Clear Calc Drug Dose 59.8 ml/min Estimated GFR () 71.8 Estimated GFR (Non- 61.9 BUN/Creatinine Ratio 19.4 Random Glucose 174 mg/dl Calcium Level 8.6 mg/dl Medications Current Inpatient Medications Medications (Trade) Dose Ordered Sig/Janee Route Start Time Stop Time Status Last Admin Dose Admin Acetaminophen (Tylenol Tab) 650 mg Q4H PRN PO 01/16/17 17:00 02/15/17 16:59 Magnesium Hydroxide (Milk Of Magnesia Susp) 30 ml Q6H PRN PO 01/16/17 17:00 02/15/17 16:59 Polyethylene (Miralax Powder Packet) 17 gm DAILY PRN PO 01/16/17 17:00 02/15/17 16:59 Ondansetron HCl (Zofran Inj) 4 mg Q6H PRN IV 01/16/17 17:00 02/15/17 16:59 Oseltamivir Phosphate (Tamiflu Cap) 75 mg BID PO 01/16/17 21:00 01/21/17 20:59 01/17/17 08:10 75 MG Levalbuterol (Xopenex 1.25MG/ 3ML Neb) 1.25 mg Q6R INH 01/16/17 21:00 02/15/17 20:59 01/17/17 07:51 1.25 MG Aspirin (Ecotrin Tab) 81 mg DAILY PO 01/17/17 09:00 02/16/17 08:59 01/17/17 08:08 81 MG Cyanocobalamin (Vitamin B-12 Tab) 100 mcg DAILY PO 01/17/17 09:00 02/16/17 08:59 01/17/17 08:10 100 MCG Diltiazem HCl (Cardizem Cd Cap) 180 mg DAILY PO 01/17/17 09:00 02/16/17 08:59 01/17/17 08:09 180 MG Fish Oil ([place]-3 (Purified Fish Oil) Cap) 1 gm DAILY PO 01/17/17 09:00 02/16/17 08:59 01/17/17 08:10 1 GM Salmeterol Xinafoate/ Fluticasone (Advair Diskus 250/50 Inh) 1 puff BID INH 01/16/17 21:00 02/15/17 20:59 01/17/17 08:08 1 PUFF Fluticasone Propionate (Flonase Nasal [place]) 2 sprays DAILY NA 01/17/17 09:00 02/16/17 08:59 01/17/17 08:07 2 SPRAYS Furosemide (Lasix Tab) 80 mg QAM PO 01/17/17 09:00 02/16/17 08:59 01/17/17 08:10 80 MG Latanoprost (Xalatan Oph Soln) 1 drops HS OPL 01/16/17 21:00 02/15/17 20:59 01/16/17 21:22 1 DROPS Potassium Chloride (Klor-Con M10) 10 meq TIDM PO 01/17/17 07:30 02/16/17 07:29 01/17/17 08:06 10 MEQ Rivaroxaban (Xarelto Tab) 20 mg HS PO 01/16/17 21:00 02/15/17 20:59 01/16/17 21:21 20 MG Senna/Docusate Sodium (Senokot S Tab) 1 tab QDL PRN PO 01/16/17 17:15 02/15/17 17:14 Simvastatin (Zocor Tab) 10 mg QPM PO 01/16/17 21:00 02/15/17 20:59 01/16/17 21:21 10 MG Spironolactone (Aldactone Tab) 25 mg BIDM PO 01/17/17 07:30 1/11/18 07:29 01/17/17 08:08 25 MG Magnesium Oxide (Mag-Ox Tab) 400 mg DAILY PO 01/17/17 09:00 02/16/17 08:59 01/17/17 08:08 400 MG Pantoprazole Sodium (Protonix Tab) 40 mg BID PO 01/16/17 21:00 02/15/17 20:59 01/17/17 08:09 40 MG Enteral Nutritional Formula (Boost) 1 can DAILY PO 01/17/17 09:00 02/16/17 08:59 01/17/17 08:13 1 CAN Metoprolol Tartrate (Lopressor Iv) 5 mg Q6H PRN IV 01/16/17 20:00 02/15/17 19:59 01/16/17 20:18 5 MG Assessment and Plan Problems Atrial fibrillation with rapid ventricular response Hypotension Influenza A Respiratory failure Chronic anemia Chronic hypercapnic respiratory failure Chronic hypoxemic respiratory failure COPD (chronic obstructive pulmonary disease) Coronary artery disease DM II (diabetes mellitus, type II), controlled HLD (hyperlipidemia) Hypertension SANDOR (obstructive sleep apnea) Assessment and Plan: Assessment: 76 year old male with history of COPD, CHF, HTN, T2DM, and AFIB with RVR in respiratory failure from COPD exacerbation caused by influenza A infection. Plan: 1. COPD exacerbation: Likely from flu. Continue 2L O2 NC, Duonebs q4hrs, albuterol inhaler PRN q2hrs, home Advair 250/50 BID. Start PO prednisone 20mg BID. No antibiotics needed. Telemetry. 2. Influenza infection: Tamiflu 75mg BID. 3. CHF: Not likely cause of respiratory failure due to lack of signs of overt fluid overload. Has lost 1.5L of fluid over last day. Continue Lasix 80mg PO. Spironolactone 25mg BID. KlorCon 10mEq TID. I&O's. 4. SANDOR: Needs CPAP, uses nasal piece, not mask for sleep. 5. HTN: Blood pressure has returned to normal after run of hypotension on arrival. Metoprolol 5mg IV PRN q6hr. 6. T2DM: SSI, BG q4hrs. 7. Right leg swelling: Chronic lymphedema, but would like to get US of right leg to rule out DVT which could be related to SOB and hypotension. 8. AFIB: Continue home diltiazem 100mg daily. Xarelto 20mg HS. 9. Chronic anemia: hgb 9.7 today CBC q24 10. DVT prophylaxis: Continue home Xarelto. Disposition: Will monitor over night with meche discharge tomorrow if there is improvement. Continued [facility] stay due to: other Discharge planning: home
--- NOTE | 2017-01-17 11:39 | Hospitalist Progress Note ---
Hospitalist Progress Note Date of Service Jan 17, 2017. (Marlene Ortiz ., PA-C) Subjective Pt evaluation today including: conversation w/ patient, conversation w/ family (/daughter at bedside ), physical exam, lab review, review of studies, review of inpatient medication list Voiding: griffith catheter in place (draining clear/yellow urine ) Patient sitting up in bed. O2 NC on- patient notes he has O2 supplement at home and uses PRN. Breathing/SOB is at baseline. Eating and drinking OK. Patient denies any fever, chills, sweats, lightheadedness, dizziness, vision changes, CP, palpitations, edema, wheezing, cough, abdominal pain, nausea, vomiting, diarrhea, urinary symptoms, melena, numbness/tingling, weakness, muscle/joint pain, anxiety/depression, active bleeding, or new skin discoloration/changes. (Marlene Ortiz ., PA-C) Medications Current Inpatient Medications Medications (Trade) Dose Ordered Sig/Janee Route Start Time Stop Time Status Last Admin Dose Admin Acetaminophen (Tylenol Tab) 650 mg Q4H PRN PO 01/16/17 17:00 02/15/17 16:59 Magnesium Hydroxide (Milk Of Magnesia Susp) 30 ml Q6H PRN PO 01/16/17 17:00 02/15/17 16:59 Polyethylene (Miralax Powder Packet) 17 gm DAILY PRN PO 01/16/17 17:00 02/15/17 16:59 Ondansetron HCl (Zofran Inj) 4 mg Q6H PRN IV 01/16/17 17:00 02/15/17 16:59 Oseltamivir Phosphate (Tamiflu Cap) 75 mg BID PO 01/16/17 21:00 01/21/17 20:59 01/17/17 08:10 75 MG Levalbuterol (Xopenex 1.25MG/ 3ML Neb) 1.25 mg Q6R INH 01/16/17 21:00 02/15/17 20:59 01/17/17 07:51 1.25 MG Aspirin (Ecotrin Tab) 81 mg DAILY PO 01/17/17 09:00 02/16/17 08:59 01/17/17 08:08 81 MG Cyanocobalamin (Vitamin B-12 Tab) 100 mcg DAILY PO 01/17/17 09:00 02/16/17 08:59 01/17/17 08:10 100 MCG Diltiazem HCl (Cardizem Cd Cap) 180 mg DAILY PO 01/17/17 09:00 02/16/17 08:59 01/17/17 08:09 180 MG Fish Oil ([place]-3 (Purified Fish Oil) Cap) 1 gm DAILY PO 01/17/17 09:00 02/16/17 08:59 01/17/17 08:10 1 GM Salmeterol Xinafoate/ Fluticasone (Advair Diskus 250/50 Inh) 1 puff BID INH 01/16/17 21:00 02/15/17 20:59 01/17/17 08:08 1 PUFF Fluticasone Propionate (Flonase Nasal [place]) 2 sprays DAILY NA 01/17/17 09:00 02/16/17 08:59 01/17/17 08:07 2 SPRAYS Furosemide (Lasix Tab) 80 mg QAM PO 01/17/17 09:00 02/16/17 08:59 01/17/17 08:10 80 MG Latanoprost (Xalatan Oph Soln) 1 drops HS OPL 01/16/17 21:00 02/15/17 20:59 01/16/17 21:22 1 DROPS Potassium Chloride (Klor-Con M10) 10 meq TIDM PO 01/17/17 07:30 02/16/17 07:29 01/17/17 08:06 10 MEQ Rivaroxaban (Xarelto Tab) 20 mg HS PO 01/16/17 21:00 02/15/17 20:59 01/16/17 21:21 20 MG Senna/Docusate Sodium (Senokot S Tab) 1 tab QDL PRN PO 01/16/17 17:15 02/15/17 17:14 Simvastatin (Zocor Tab) 10 mg QPM PO 01/16/17 21:00 02/15/17 20:59 01/16/17 21:21 10 MG Spironolactone (Aldactone Tab) 25 mg BIDM PO 01/17/17 07:30 02/16/17 07:29 01/17/17 08:08 25 MG Magnesium Oxide (Mag-Ox Tab) 400 mg DAILY PO 01/17/17 09:00 02/16/17 08:59 12/12/17 08:08 400 MG Pantoprazole Sodium (Protonix Tab) 40 mg BID PO 01/16/17 21:00 02/15/17 20:59 01/17/17 08:09 40 MG Enteral Nutritional Formula (Boost) 1 can DAILY PO 01/17/17 09:00 02/16/17 08:59 01/17/17 08:13 1 CAN Metoprolol Tartrate (Lopressor Iv) 5 mg Q6H PRN IV 01/16/17 20:00 02/15/17 19:59 01/16/17 20:18 5 MG (Marlene Ortiz, STEVEN) Objective Vital Signs Date Time Temp Pulse Resp B/P (MAP) Pulse Ox O2 Delivery O2 Flow Rate FiO2 01/17/17 08:00 Nasal Cannula 3.0 01/17/17 07:54 96 20 95 Nasal Cannula 2.0 01/17/17 07:36 36.8 104 20 142/69 (93) 95 01/17/17 04:00 108 01/17/17 04:00 Nasal Cannula 3.0 01/17/17 03:45 36.5 120 24 146/69 (94) 96 Nasal Cannula 2.0 01/17/17 01:59 106 20 97 Nasal Cannula 2.0 01/16/17 23:35 36.5 107 23 134/62 (86) 98 Room Air 01/16/17 23:21 Nasal Cannula 3.0 01/16/17 20:18 123 113/74 01/16/17 19:03 83 20 94 Nasal Cannula 2.5 01/16/17 18:30 36.5 109 25 107/65 Nasal Cannula 3.0 98 01/16/17 18:06 87 110/63 96 01/16/17 17:47 87 95/58 94 Room Air 01/16/17 14:40 86 25 134/71 100 Nebulizer 7.0 01/16/17 14:21 85 22 94 Nasal Cannula 2.0 01/16/17 13:55 Nasal Cannula 3.0 01/16/17 13:37 96 Nasal Cannula 3.0 01/16/17 13:37 97 Nasal Cannula 3.0 01/16/17 13:37 36.8 78 18 99/58 98 Nasal Cannula 3.0 12/11/17 13:35 77 (Marlene Ortiz ., PA-C) Physical Exam General Appearance: no apparent distress, + obese, + pertinent finding (O2 NC ) Eyes: normal inspection, PERRL ENT: hearing grossly normal Neck: supple Respiratory/Chest: no respiratory distress, no accessory muscle use, + wheezing (expiratory wheeze noted throughout ), + pertinent finding (Coarse breath sounds throughout ) Cardiovascular: + tachycardia, + irregularly irregular Abdomen: normal bowel sounds, non tender, soft Extremities: no calf tenderness, + swelling (+2-3 pitting edema of bilateral lower extremities- chronic ), + pertinent finding (Noted seeping of serous fluid from RLE; chronic stasis changes to bilateral gorman regions; TEDs on ) Neurologic/Psychiatric: alert, normal mood/affect, oriented x 3 Skin: normal color, warm/dry, no rash (Marlene Ortiz ., PA-C) Laboratory Results Last 24 Hours Test 01/16/17 14:00 01/16/17 14:05 01/16/17 16:36 01/16/17 20:10 Influenza Type A (RT-PCR) POS for Influ A Influenza Type A Antigen Neg for Influ A Influenza Type B Antigen Neg for Influ B Influenza Type B (RT-PCR) Neg for Influ B White Blood Count 5.41 K/uL Red Blood Count 3.34 M/uL Hemoglobin 9.1 g/dL Hematocrit 29.3 % Mean Corpuscular Volume 87.7 fL Mean Corpuscular Hemoglobin 27.2 pg Mean Corpuscular Hemoglobin Concent 31.1 g/dl Platelet Count 187 K/uL Mean Platelet Volume 10.2 fL Neutrophils (%) (Auto) 43.8 % Lymphocytes (%) (Auto) 43.6 % Monocytes (%) (Auto) 11.3 % Eosinophils (%) (Auto) 0.4 % Basophils (%) (Auto) 0.2 % Neutrophils # (Auto) 2.37 K/uL Lymphocytes # (Auto) 2.36 K/uL Monocytes # (Auto) 0.61 K/uL Eosinophils # (Auto) 0.02 K/uL Basophils # (Auto) 0.01 K/uL RDW Standard Deviation 52.1 fL RDW Coefficient of Variation 16.1 % Immature Granulocyte % (Auto) 0.7 % Immature Granulocyte # (Auto) 0.04 K/uL Sodium Level 139 mmol/L Potassium Level 4.2 mmol/L Chloride Level 101 mmol/L Carbon Dioxide Level 35 mmol/L Anion Gap 3.0 mmol/L Blood Urea Nitrogen 22 mg/dl Creatinine 1.17 mg/dl Est Creatinine Clear Calc Drug Dose 57.7 ml/min Estimated GFR () 68.8 Estimated GFR (Non- 59.4 BUN/Creatinine Ratio 19.2 Random Glucose 92 mg/dl Calcium Level 8.2 mg/dl Total Bilirubin 0.3 mg/dl Aspartate Amino Transf (AST/SGOT) 19 U/L Alanine Aminotransferase (ALT/SGPT) 32 U/L Alkaline Phosphatase 99 U/L Total Creatine Kinase 38 U/L Creatine Kinase MB 2.0 ng/ml Creatine Kinase MB Ratio 5.3 Troponin I 0.016 ng/ml Pro-B-Type Natriuretic Peptide 3098 pg/ml Total Protein 5.7 gm/dl Albumin 2.4 gm/dl Globulin 3.3 gm/dl Albumin/Globulin Ratio 0.7 Urine Color YELLOW Urine Appearance CLEAR Urine pH 6.5 Urine Specific [place] 1.011 Urine Protein NEG Urine Glucose (UA) NEG Urine Ketones NEG Urine Occult Blood NEG Urine Nitrite NEG Urine Bilirubin NEG Urine Urobilinogen NEG Urine Leukocyte Esterase NEG Test 01/17/17 05:58 White Blood Count 3.79 K/uL Red Blood Count 3.58 M/uL Hemoglobin 9.7 g/dL Hematocrit 31.4 % Mean Corpuscular Volume 87.7 fL Mean Corpuscular Hemoglobin 27.1 pg Mean Corpuscular Hemoglobin Concent 30.9 g/dl Platelet Count 199 K/uL Mean Platelet Volume 10.0 fL Neutrophils (%) (Auto) 82.9 % Lymphocytes (%) (Auto) 13.7 % Monocytes (%) (Auto) 2.9 % Eosinophils (%) (Auto) 0.0 % Basophils (%) (Auto) 0.0 % Neutrophils # (Auto) 3.14 K/uL Lymphocytes # (Auto) 0.52 K/uL Monocytes # (Auto) 0.11 K/uL Eosinophils # (Auto) 0.00 K/uL Basophils # (Auto) 0.00 K/uL RDW Standard Deviation 50.6 fL RDW Coefficient of Variation 15.6 % Immature Granulocyte % (Auto) 0.5 % Immature Granulocyte # (Auto) 0.02 K/uL Sodium Level 136 mmol/L Potassium Level 3.9 mmol/L Chloride Level 97 mmol/L Carbon Dioxide Level 35 mmol/L Anion Gap 4.0 mmol/L Blood Urea Nitrogen 22 mg/dl Creatinine 1.13 mg/dl Est Creatinine Clear Calc Drug Dose 59.8 ml/min Estimated GFR () 71.8 Estimated GFR (Non- 61.9 BUN/Creatinine Ratio 19.4 Random Glucose 174 mg/dl Calcium Level 8.6 mg/dl (Marlene Ortiz ., PA-C) Assessment and Plan This is s a76 yo M with PMHx of COPD, chronic hypoxemia and hypercapnic respiratory failure, SANDOR on cpap, hx of pipe tobacco smoking quit in 1999, combined systolic & diastolic CHF, HTN, HLD, DM II, severe protein calorie malnutrition, afib with RVR, and chronic anemia who presents with shortness of breath and + Influenza A. Influenza: - Supportive care with pulmonary toilet, supplemental O2 - Tamiflu 75 mg BID- started on 01/16 - Nebs Q6H and Q2H PRN for SOB/wheezing HTN: - Continue Spironolactone 25 mg BID, Lasix 80 mg daily, Diltiazem 180 mg daily - Hyzaar 25/100 mg daily, Lopressor 75 mg BID, Hytrin 5 mg HS held due to hypotension at admission- will resume Lopressor today due to tachycardia and acceptable BPs Hypotension- RESOLVED: Held BP medications as above Chronic hypoxemic respiratory failure, chronic hypercapnic respiratory failure, COPD, SANDOR: - O2 protocol- has home O2 supplement, uses PRN - Continue CPAP HS - Continue Advair inhaler - Nebs Q6H and Q2H PRN Chronic systolic and diastolic CHF, chronic a.fib w/ RVR- follows w/ Dr. Parson: - Continue Lasix 80 mg QAM - Continue Aldactone, Lopressor, Diltiazem, Amiodarone 200 mg daily, Xarelto 20 mg HS, ASA 81 mg daily - IV Lopressor PRN for HR >120 - Last ECHO completed 12/07/16- reviewed Hyperlipidemia: Continue Simvastatin 10 mg daily Chronic anemia, baseline hgb 10-12- STABLE Severe protein-calorie malnutrition: Continue boost supplement GI prophylaxis: Protonix DVT prophylaxis: Xarelto Code Status: LEVEL I, FULL Dispo: From home, lives w/ - hopeful discharge in the next 1-2 days- PT/OT and CM consulted (Marlene Ortiz ., PA-C) I agree with PA assessment and plan and have seen and examined pt myself Resting comfortably in bed No worsening shortness of breath Afib with RVR this AM, cont on amio and BB Labs reviewed Started on tamilfu Responding well Likely DC in next 24 hrs (Tonio Dc, D.O.)
[2017-01-17] MEDS: AMIODARONE 200 MG TAB PO SCH (14:28)
[2017-01-17] MEDS ORDERED: BOOST GLUCOSE CONTROL PO SCH (16:45)
[2017-01-17] MEDS: LATANOPROST 0.005% OP SOLN 2.5 ML BTL OPL SCH (21:17)
[2017-01-17] MEDS: METOPROLOL TARTRATE 50 MG TAB PO SCH (21:18)
[2017-01-17] MEDS: RIVAROXABAN 10 MG TAB PO SCH (21:20)
[2017-01-17] MEDS: SIMVASTATIN 10 MG TAB PO SCH (21:20)
[2017-01-18 01:49] VITALS: PULSE 65; O2SAT 98
[2017-01-18] MEDS: LEVALBUTEROL 1.25MG/3ML NEB INH SCH ×2 (01:49→07:00)
[2017-01-18 03:35] VITALS: BP 114/68; PULSE 81; TEMP 36.9; O2SAT 91
[2017-01-18 06:59] LABS: BASO % 0.1 %; BASO ABS # 0.01 K/uL (0-0.2); COMPLETE YES; HEMATOCRIT 30.6 % (42-52); IG% 0.7 %; LYMPH % 13.6 %; MEAN CELL VOLUME 86.7 fL (80-100); MEAN CORPUSCULAR HEMOGLOBIN 27.5 pg (25-34); MEAN CORPUSCULAR HGB CONC 31.7 g/dl (32-36); MEAN PLATELET VOLUME 10.2 fL (7.4-10.4); MONO % 7.5 %; NEUT % 78.1 %; PLATELET COUNT 220 K/uL (130-400); RED BLOOD COUNT 3.53 M/uL (4.7-6.1); WHITE BLOOD COUNT 7.34 K/uL (4.8-10.8)
[2017-01-18 07:00] VITALS: PULSE 94; O2SAT 93
[2017-01-18 07:37] LABS: BUN/CREATININE RATIO 30.5 (10-20); CALCIUM 8.4 mg/dl (8.5-10.1); CREATININE 0.98 mg/dl (0.60-1.40); POTASSIUM 3.8 mmol/L (3.5-5.1)
[2017-01-18 08:01] VITALS: BP 150/63; PULSE 72; TEMP 36.9; O2SAT 96
[2017-01-18] MEDS: FLUTICASONE PROPIONATE NA SPR 16 GM BTL SCH (08:10)
[2017-01-18] MEDS: FLUTICASONE/SALMETEROL 250/50 (ADVAIR) 14 PUFF/1 INHALER INH SCH (08:10)
[2017-01-18] MEDS: AMIODARONE 200 MG TAB PO SCH (08:10)
[2017-01-18] MEDS: OSELTAMIVIR PHOSPHATE 75 MG CAP PO SCH (08:11)
[2017-01-18] MEDS: FUROSEMIDE 80 MG TAB PO SCH (08:11)
[2017-01-18] MEDS: METOPROLOL TARTRATE 50 MG TAB PO SCH (08:11)
[2017-01-18] MEDS: DILTIAZEM HCL 180 MG CAPCR PO SCH (08:11)
[2017-01-18] MEDS: CYANOCOBALAMIN 100 MCG TAB (VIT B-12) PO SCH (08:11)
[2017-01-18] MEDS: OMEGA-3 (PURIFIED FISH OIL) 1 GM CAP PO SCH (08:12)
[2017-01-18] MEDS: SPIRONOLACTONE 25 MG TAB PO SCH (08:12)
[2017-01-18] MEDS: POTASSIUM CHLORIDE 10 MEQ TABCR PO SCH (08:12)
[2017-01-18] MEDS: MAGNESIUM OXIDE 400 MG TAB PO SCH (08:12)
[2017-01-18] MEDS: ASPIRIN 81 MG ECTAB PO SCH (08:13)
[2017-01-18] MEDS: PANTOprazole SOD 40 MG TAB PO SCH (08:13)
[2017-01-18 08:31] LABS: ESTIMATED AVERAGE GLUCOSE 108 mg/dl; HA1C FLAG Normal (Normal)
[2017-01-18] MEDS ORDERED: CRD200 PO ×2 (10:06→10:15)
[2017-01-18] MEDS ORDERED: TMF75 PO (10:06)
--- NOTE | 2017-01-18 10:08 | Discharge Instructions ---
Discharge Instructions Date of Service Jan 18, 2017. Admission Reason for Admission: Influenza A Discharge Discharge Diagnosis / Problem: Influenza A Discharge Goals Goal(s): Decrease discomfort, Improve function, Increase independence, Improve disease control, Improve nutritional status, Learn about illness, Diagnostic testing, Therapeutic intervention, Prevent Disease Progression Activity Recommendations Activity Limitations: resume your previous activity . Instructions / Follow-Up Instructions / Follow-Up New medications: Tamiflu 1 tablet twice daily- start this tonight (01/18) Resume all other regular home medications as prescribed. FOLLOW-UPS: Please follow-up with your PCP within 5-7 days Please follow-up/keep all of your subspecialty appointments Current Hospital Diet Patient's current hospital diet: Low Sodium Diet (2gm Na), Diabetes Type 2 Diet Discharge Diet Recommended Diet: AHA Diet (Heart Healthy), Low Sodium Diet (2gm Na), Diabetes Type 2 Diet Pending Studies Studies pending at discharge: no Laboratory Results Hemoglobin A1c Test 01/18/17 06:12 Range/Units Estimated Average Glucose 108 mg/dl Hemoglobin A1c 5.4 4.5-5.6 % Medical Emergencies . Who to Call and When: Medical Emergencies: If at any time you feel your situation is an emergency, please call 911 immediately. . Non-Emergent Contact Non-Emergency issues call your: Primary Care Provider . . "Provider Documentation" section prepared by Marlene Ortiz. . VTE Core Measure Inpt VTE Proph given/why not?: Other Anticoagulation, T.E.D. Stockings, SCD's
--- NOTE | 2017-01-18 10:16 | Discharge Summary ---
Discharge Summary Date of Service Jan 18, 2017. Discharge Summary Admission Date: Jan 16, 2017 at 17:07 Discharge Date: Jan 18, 2017 Discharge Disposition: Home with services Principal Diagnosis: Influenza A Problems/Secondary Diagnoses: HTN Hypotension Chronic hypoxemic respiratory failure chronic hypercapnic respiratory failure COPD SANDOR Chronic systolic and diastolic CHF chronic a.fib w/ RVR Hyperlipidemia Chronic anemia Severe protein-calorie malnutrition Immunizations: Have You Had Influenza Vaccine: Yes History of Tetanus Vaccine?: No History of Pneumococcal: No History of Hepatitis B Vaccine: No Procedures: CHEST ONE VIEW PORTABLE CLINICAL HISTORY: Pt c/o SOB dyspnea COMPARISON STUDY: 12/14/2016 FINDINGS: Mild stable cardiomegaly. Prior median sternotomy. Findings of moderate prominence of the pulmonary vasculature. Mild right basilar atelectasis. IMPRESSION: Pulmonary vascular congestion. Improved exam from the prior study. The above report was generated using voice recognition software. It may contain grammatical, syntax or spelling errors. Electronically signed by: Rajinder Galeana M.D. 01/16/2017 2:06 PM Dictated Date/Time: 01/16/2017 2:05 PM The status of this report is Signed. Draft = Not yet reviewed or approved by Radiologist. Signed = Reviewed and approved by Radiologist. Medication Reconciliation New Medications: Oseltamivir Phosphate (Tamiflu) 75 Mg Cap 75 MG PO BID, #6 CAP Continued Medications: Albuterol Sulf (Proventil 0.083% 2.5MG/3ML) 2.5 Mg/3 Ml Nebu 2.5 MG INH UD PRN for Shortness of Breath, EA Amiodarone HCl (Amiodarone HCl) 200 Mg Tab 200 MG PO DAILY, #30 TAB Aspirin (Aspirin Ec) 81 Mg Tab 81 MG PO DAILY Cyanocobalamin (Vitamin B12 100 Mcg) 100 Mcg Tab 100 MCG PO DAILY, TAB Diltiazem Hcl Coated Beads (Cartia Xt) 180 Mg Cap 180 MG PO DAILY Fish Oil ([place]-3) 1 Ea Cap 1 CAP PO DAILY Fluticasone Prop/Salmeterol (Advair Diskus 250/50 60 Dose) 1 Ea Aerp 1 PUFF INH BID, INHALER Fluticasone Propionate (Nasal) (Allergy Nasal [place] 24 Ho) 50 Mcg/Act Spr 2 SPRAY NA DAILY Furosemide (Lasix) 40 Mg Tab 2 TAB PO QAM, TAB Hctz/Losartan (Hyzaar 25MG/100MG) Tab 1 TAB PO DAILY Ipratropium-Albuterol (Duoneb) 3 Ml Nebu 1 TREATMENT INH Q4H, INHA Latanoprost (Xalatan 0.005% Oph Fannie) 0.005 % Fannie 1 DROPS OPL HS, #7.5 ML 3 Refills Magnesium Oxide (Magnesium) 250 Mg Tab 250 MG PO DAILY Metoprolol Tartrate (Lopressor) (Lopressor) 50 Mg Tab 75 MG PO BID Omeprazole (Prilosec) 20 Mg Capcr 20 MG PO BID, CAP Potassium Chloride (Micro-K Ext Rel) 10 Meq Capcr 20 MG PO TID breakfast,lunch & dinner Rivaroxaban (Xarelto) 20 Mg Tab 20 MG PO HS Sennosides-Docusate Sodium (Senokot S) 1 Tab Tab 1 TAB PO QDL PRN for Consult, TAB Simvastatin (Zocor) 10 Mg Tab 10 MG PO QPM, TAB Spironolactone (Aldactone) 25 Mg Tab 25 MG PO BID, TAB Terazosin (Hytrin) 5 Mg Cap 5 MG PO HS, CAP Discharge Exam Review of Systems: Constitutional: No fever, No chills, No sweats, No weakness, No fatigue Eyes: No worsening of vision ENT: No hearing loss, No sore throat Respiratory: No cough, No sputum, No wheezing, No shortness of breath, No dyspnea on exertion, No dyspnea at rest Cardiovascular: + edema (chronic ), No palpitations Abdomen: No pain, No nausea, No vomiting, No diarrhea, No constipation Musculoskeletal: No joint pain, No muscle pain, No swelling, No calf pain Genitourinary - Male: No hematuria, No dysuria Neurologic: No weakness, No numbness/tingling Psychiatric: No depression symptoms, No anxiety Endocrine: No fatigue Hematologic / Lymphatic: No abnormal bleeding/bruising Integumentary: No rash, No itch, No new/changing skin lesions Physical Exam: General Appearance: no apparent distress, + obese Eyes: normal inspection, PERRL ENT: hearing grossly normal Neck: supple Respiratory/Chest: no respiratory distress, no accessory muscle use, + rhonchi (throughout all lung quarles ) Cardiovascular: + irregularly irregular (rate controlled ) Abdomen / GI: normal bowel sounds, non tender, soft Extremities: no calf tenderness, + swelling (+2 pitting edema bilateral lower extremities ), + pertinent finding (TEDs on ) Neurologic/Psychiatric: alert, normal mood/affect, oriented x 3 Skin: normal color, warm/dry, no rash Hospital Course Admission H&P: This is s a76 yo M with PMHx of COPD, chronic hypoxemia and hypercapnic respiratory failure, SANDOR on cpap, hx of pipe tobacco smoking quit in 1999, combined systolic & diastolic CHF, HTN, HLD, DM II, severe protein calorie malnutrition, afib with RVR, and chronic anemia who presents with shortness of breath and + Influenza A. Pt reports that he became acutely short of breath last evening which worsened this morning when he woke up. He denies being around any sick contacts. He denies any fever, chills or sweats at this time. He does not require supplemental O2 but needed it today per EMS. He was also noted to be acutely hypotensive with BP of 90/30. Once in the ER the patient had a BP of 99/58. The patient denies any acute complaints regarding chest pain, flutter, or palpitation. Physical Exam Vital Signs Date Time Temp Pulse Resp B/P (MAP) Pulse Ox O2 Delivery O2 Flow Rate FiO2 01/16/17 14:40 86 25 134/71 100 Nebulizer 7.0 01/16/17 14:21 85 22 94 Nasal Cannula 2.0 01/16/17 13:55 Nasal Cannula 3.0 01/16/17 13:37 96 Nasal Cannula 3.0 01/16/17 13:37 97 Nasal Cannula 3.0 01/16/17 13:37 36.8 78 18 99/58 98 Nasal Cannula 3.0 01/16/17 13:35 77 General Appearance: WD/WN, no apparent distress Head: normocephalic, atraumatic Eyes: PERRL, EOMI ENT: hearing grossly normal, pharynx normal Neck: supple, no JVD Respiratory/Chest: + pertinent finding (on 2 L via NC, coarse breath sounds throughout, + inspiratory and exp breath sounds, no cough. ) Cardiovascular: + tachycardia, + irregularly irregular Abdomen/GI: normal bowel sounds, non tender, soft Back: no CVA tenderness Extremities/Musculoskelatal: no calf tenderness, + pedal edema (2+ pitting edema up to knees bilaterally) Neurologic/Psych: alert, normal mood/affect, oriented x 3 Skin: normal color, warm/dry Hospital Course: This is s a76 yo M with PMHx of COPD, chronic hypoxemia and hypercapnic respiratory failure, SANDOR on cpap, hx of pipe tobacco smoking quit in 1999, combined systolic & diastolic CHF, HTN, HLD, DM II, severe protein calorie malnutrition, afib with RVR, and chronic anemia who presents with shortness of breath and + Influenza A. Influenza: - Supportive care with pulmonary toilet, supplemental O2 - Tamiflu 75 mg BID x5 days- started on 01/16 - Nebs Q6H and Q2H PRN for SOB/wheezing HTN: - Continue Spironolactone 25 mg BID, Lasix 80 mg daily, Diltiazem 180 mg daily, Lopressor 75 mg BID - Hyzaar 25/100 mg daily, Hytrin 5 mg HS held due to hypotension- resume at discharge Hypotension- RESOLVED: Held BP medications as above Chronic hypoxemic respiratory failure, chronic hypercapnic respiratory failure, COPD, SANDOR: - O2 protocol- has home O2 supplement, uses PRN - Continue CPAP HS - Continue Advair inhaler - Nebs Q6H and Q2H PRN Chronic systolic and diastolic CHF, chronic a.fib w/ RVR- follows w/ Dr. Parson: - Continue Lasix 80 mg QAM - Continue Aldactone, Lopressor, Diltiazem, Amiodarone 200 mg daily, Xarelto 20 mg HS, ASA 81 mg daily - IV Lopressor PRN for HR >120 - Last ECHO completed 12/07/16- reviewed Hyperlipidemia: Continue Simvastatin 10 mg daily Chronic anemia, baseline hgb 10-12- STABLE Severe protein-calorie malnutrition: Continue boost supplement GI prophylaxis: Protonix DVT prophylaxis: Xarelto Code Status: LEVEL I, FULL Dispo: Discharge to home w/ [facility] I agree with PA assessment and plan and have seen and examined pt myself Resting comfortably in bed No worsening shortness of breath Afib with RVR resolved, cont on amio and BB Labs reviewed Started on tamilfu Responding well DC on tamiflu at this time Total Time Spent: Greater than 30 minutes This includes examination of the patient, discharge planning, medication reconciliation, and communication with other providers. Discharge Instructions Please refer to the electronic Patient Visit Report (Discharge Instructions) for additional information. Follow-Up Please follow-up with your PCP within 5-7 days Please follow-up/keep all of your subspecialty appointments Additional Copies To Ken Worthington M.D.
[2017-01-18 10:24] VITALS: BP 150/63; PULSE 72; TEMP 36.9; O2SAT 96
--- NOTE | 2017-01-18 11:22 | Medical Student: [facility] ---
Med Student Progress Note Date of Service Jan 18, 2017. Subjective Pt evaluation today including: conversation w/ patient, physical exam, chart review, lab review, review of studies, review of inpatient medication list Voiding: no voiding problems 76 year old male with a history of COPD, SANDOR, CHF, HTN, T2DM, and AFIB with RVR presenting to ER on 01/16 with shortness of breath for 1 day found to have influenza A in ER. He was started on Tamiflu, supplemental O2, duonebs, home Advair. Was given Lasix and lost 1.4L over the hospital stay. Today he is breathing normally on room air with O2 saturation of 93%.. He has chronic swelling in right extremity from lymphedema following hip surgery. Mild pain in that leg. He feels much better than yesterday and is ready to go home. Review of Systems Constitutional: No fever, No chills Respiratory: + wheezing, No cough, No sputum, No shortness of breath, No hemoptysis Cardiac: + edema, No chest pain, No palpitations Abdomen: No pain, No nausea, No vomiting, No diarrhea Male : No dysuria, No incontinence Skin: No rash, No itch All Other Systems: Reviewed and Negative Objective Vital Signs Date Time Temp Pulse Resp B/P (MAP) Pulse Ox O2 Delivery O2 Flow Rate FiO2 01/18/17 10:24 36.9 72 20 96 Room Air 01/18/17 08:01 36.9 72 20 150/63 (92) 96 01/18/17 08:00 Room Air 01/18/17 07:00 94 18 93 Room Air 01/18/17 04:00 Nasal Cannula 2.0 01/18/17 03:35 36.9 81 23 114/68 (83) 91 Room Air 01/18/17 01:49 65 20 98 Nasal Cannula 2.0 01/18/17 00:01 Nasal Cannula 2.0 01/17/17 23:35 36.8 115 23 130/80 (97) 97 Nasal Cannula 2.0 01/17/17 20:00 Nasal Cannula 3.0 01/17/17 19:27 36.8 116 24 113/72 (86) 97 Nasal Cannula 3.0 01/17/17 19:05 92 20 97 Nasal Cannula 2.0 01/17/17 16:18 36.7 123 24 139/75 (96) 91 Nasal Cannula 2.0 01/17/17 16:00 Nasal Cannula 3.0 01/17/17 14:17 115 20 96 Nasal Cannula 2.0 01/17/17 12:00 Nasal Cannula 3.0 01/17/17 11:27 36.7 94 20 152/63 (92) 96 Physical Exam General Appearance: no apparent distress, + obese Eyes: bilateral eyes normal inspection, bilateral eyes EOMI ENT: hearing grossly normal, pharynx normal Neck: supple, no JVD Respiratory/Chest: chest non-tender, no respiratory distress, no accessory muscle use, + wheezing (Improved from yesterday, expiratory wheezing throughout both lung quarles) Cardiovascular: no edema, no gallop, no JVD, no murmur, + irregularly irregular Abdomen: normal bowel sounds, non tender, soft, no organomegaly, no pulsatile mass Extremities: normal range of motion, + calf tenderness (right, mild), + swelling (right leg from chronic lymphedema now with mild pain to palpation which is a chronic issue) Neurologic/Psychiatric: alert, normal mood/affect, oriented x 3 Skin: normal color, warm/dry, no rash Laboratory Results Last 24 Hours Test 01/18/17 06:12 White Blood Count 7.34 K/uL Red Blood Count 3.53 M/uL Hemoglobin 9.7 g/dL Hematocrit 30.6 % Mean Corpuscular Volume 86.7 fL Mean Corpuscular Hemoglobin 27.5 pg Mean Corpuscular Hemoglobin Concent 31.7 g/dl Platelet Count 220 K/uL Mean Platelet Volume 10.2 fL Neutrophils (%) (Auto) 78.1 % Lymphocytes (%) (Auto) 13.6 % Monocytes (%) (Auto) 7.5 % Eosinophils (%) (Auto) 0.0 % Basophils (%) (Auto) 0.1 % Neutrophils # (Auto) 5.73 K/uL Lymphocytes # (Auto) 1.00 K/uL Monocytes # (Auto) 0.55 K/uL Eosinophils # (Auto) 0.00 K/uL Basophils # (Auto) 0.01 K/uL RDW Standard Deviation 51.4 fL RDW Coefficient of Variation 16.1 % Immature Granulocyte % (Auto) 0.7 % Immature Granulocyte # (Auto) 0.05 K/uL Nucleated RBC Absolute Count (auto) 0.02 K/uL Nucleated Red Blood Cells % 0.3 % Sodium Level 136 mmol/L Potassium Level 3.8 mmol/L Chloride Level 98 mmol/L Carbon Dioxide Level 33 mmol/L Anion Gap 5.0 mmol/L Blood Urea Nitrogen 30 mg/dl Creatinine 0.98 mg/dl Est Creatinine Clear Calc Drug Dose 68.9 ml/min Estimated GFR () 85.2 Estimated GFR (Non- 73.6 BUN/Creatinine Ratio 30.5 Random Glucose 101 mg/dl Estimated Average Glucose 108 mg/dl Hemoglobin A1c 5.4 % Calcium Level 8.4 mg/dl Medications Current Inpatient Medications Medications (Trade) Dose Ordered Sig/Janee Route Start Time Stop Time Status Last Admin Dose Admin Acetaminophen (Tylenol Tab) 650 mg Q4H PRN PO 01/16/17 17:00 02/15/17 16:59 01/18/17 00:09 650 MG Magnesium Hydroxide (Milk Of Magnesia Susp) 30 ml Q6H PRN PO 01/16/17 17:00 02/15/17 16:59 Polyethylene (Miralax Powder Packet) 17 gm DAILY PRN PO 01/16/17 17:00 02/15/17 16:59 Ondansetron HCl (Zofran Inj) 4 mg Q6H PRN IV 01/16/17 17:00 02/15/17 16:59 Oseltamivir Phosphate (Tamiflu Cap) 75 mg BID PO 01/16/17 21:00 01/21/17 20:59 01/18/17 08:11 75 MG Levalbuterol (Xopenex 1.25MG/ 3ML Neb) 1.25 mg Q6R INH 01/16/17 21:00 02/15/17 20:59 01/18/17 07:00 1.25 MG Aspirin (Ecotrin Tab) 81 mg DAILY PO 01/17/17 09:00 02/16/17 08:59 01/18/17 08:13 81 MG Cyanocobalamin (Vitamin B-12 Tab) 100 mcg DAILY PO 01/17/17 09:00 02/16/17 08:59 01/18/17 08:11 100 MCG Diltiazem HCl (Cardizem Cd Cap) 180 mg DAILY PO 01/17/17 09:00 02/16/17 08:59 01/18/17 08:11 180 MG Fish Oil ([place]-3 (Purified Fish Oil) Cap) 1 gm DAILY PO 01/17/17 09:00 02/16/17 08:59 01/18/17 08:12 1 GM Salmeterol Xinafoate/ Fluticasone (Advair Diskus 250/50 Inh) 1 puff BID INH 01/16/17 21:00 02/15/17 20:59 01/18/17 08:10 1 PUFF Fluticasone Propionate (Flonase Nasal [place]) 2 sprays DAILY NA 01/17/17 09:00 02/16/17 08:59 01/18/17 08:10 2 SPRAYS Furosemide (Lasix Tab) 80 mg QAM PO 01/17/17 09:00 02/16/17 08:59 01/18/17 08:11 80 MG Latanoprost (Xalatan Oph Soln) 1 drops HS OPL 01/16/17 21:00 02/15/17 20:59 01/17/17 21:17 1 DROPS Potassium Chloride (Klor-Con M10) 10 meq TIDM PO 01/17/17 07:30 02/16/17 07:29 01/18/17 08:12 10 MEQ Rivaroxaban (Xarelto Tab) 20 mg HS PO 01/16/17 21:00 02/15/17 20:59 01/17/17 21:20 20 MG Senna/Docusate Sodium (Senokot S Tab) 1 tab QDL PRN PO 01/16/17 17:15 02/15/17 17:14 Simvastatin (Zocor Tab) 10 mg QPM PO 01/16/17 21:00 02/15/17 20:59 01/17/17 21:20 10 MG Spironolactone (Aldactone Tab) 25 mg BIDM PO 01/17/17 07:30 02/16/17 07:29 01/18/17 08:12 25 MG Magnesium Oxide (Mag-Ox Tab) 400 mg DAILY PO 01/17/17 09:00 02/16/17 08:59 01/18/17 08:12 400 MG Pantoprazole Sodium (Protonix Tab) 40 mg BID PO 01/16/17 21:00 02/15/17 20:59 01/18/17 08:13 40 MG Metoprolol Tartrate (Lopressor Iv) 5 mg Q6H PRN IV 01/16/17 20:00 02/15/17 19:59 01/16/17 20:18 5 MG Amiodarone HCl (Cordarone Tab) 200 mg QAM PO 01/17/17 13:30 02/16/17 13:29 01/18/17 08:10 200 MG Metoprolol Tartrate (Lopressor Tab) 75 mg BID PO 01/17/17 21:00 02/16/17 20:59 01/18/17 08:11 75 MG Enteral Nutritional Formula (Boost Glucose Control) 1 can QDD PO 01/17/17 16:45 02/16/17 16:44 01/17/17 16:39 1 CAN Assessment and Plan Problems Atrial fibrillation with rapid ventricular response Influenza A Respiratory failure Chronic anemia Chronic hypercapnic respiratory failure Chronic hypoxemic respiratory failure COPD (chronic obstructive pulmonary disease) Coronary artery disease DM II (diabetes mellitus, type II), controlled HLD (hyperlipidemia) Hypertension SANDOR (obstructive sleep apnea) Systolic and diastolic CHF, chronic Assessment and Plan: Assessment: 76 year old male with history of COPD, CHF, HTN, T2DM, and AFIB with RVR in respiratory failure from COPD exacerbation caused by influenza A infection. Plan: 1. COPD exacerbation: Likely from flu. Breathing well on room air, residual wheezing, will discharge on home medications. 2. Influenza infection: Tamiflu 75mg BID day 4, one more day at home. 3. CHF: Not likely cause of respiratory failure due to lack of signs of overt fluid overload, but could be contributing. Has lost 1.4L of fluid overstay. Continue home Lasix 80mg PO. Spironolactone 25mg BID. KlorCon 10mEq TID. 4. SANDOR: Home CPAP 5. HTN: Blood pressure has returned to normal after run of hypotension on arrival. Dischrarge on home BP meds. Metoprolol 75 mg BID. Hyzaar 100/25mg daily. 6. T2DM: Discharge on home glucose management.. 7. Right leg swelling: Chronic lymphedema 8. AFIB: Continue home diltiazem 100mg daily, amiodarone 200mg daily. Xarelto 20mg HS. 9. Chronic anemia: hgb 9.7 today Disposition: Discharge home with one more day of Tamiflu. Discharge planning: home
[2017-01-19 14:34] LABS: BORDETELLA PERTUSSIS SOURCE Swab
== END 2017-01-18 11:53 | disposition home health service (06) | DRG 152 ==
LOC: EDBD 13:22 → C.EDC 13:23 → C.2T 17:07 → CANRESERV 17:11 → ENRESERV 17:11 → EDBEDREQSVC 17:20 → ENRESERV 17:27
PROVIDERS: ADMIT Internal Medicine; ATTEND Hospitalist
DX: J11.1 Influenza due to unidentified influenza virus with other respiratory manifestations (principal); E43 Unspecified severe protein-calorie malnutrition; J96.12 Chronic respiratory failure with hypercapnia; J96.11 Chronic respiratory failure with hypoxia; I50.42 Chronic combined systolic (congestive) and diastolic (congestive) heart failure; I11.0 Hypertensive heart disease with heart failure; D64.9 Anemia, unspecified; J44.9 Chronic obstructive pulmonary disease, unspecified; I25.10 Atherosclerotic heart disease of native coronary artery without angina pectoris; E11.40 Type 2 diabetes mellitus with diabetic neuropathy, unspecified; I25.2 Old myocardial infarction; G47.33 Obstructive sleep apnea (adult) (pediatric); Z87.891 Personal history of nicotine dependence; E78.5 Hyperlipidemia, unspecified; I95.9 Hypotension, unspecified; I48.2 Chronic atrial fibrillation

== ENCOUNTER → 2017-01-31 | Outpatient (CLI) | payer OTHER ==
[~2017-01-31] MED LIST changes: +ALBINS/ INH; -AMIO200T4 PO; +CRD200 PO; +DILT180C50 PO; -DILT1CAP15 PO; -GFNSR600 PO; +HYZ/10015 PO; +MAGN250T22 PO; -METO-596 PO; +METO50TA16 PO; +OMEG10007 PO; -OXYC1CAP5 PO; -PRD20 PO; +SPIR25TA PO; +TERA5CAP PO; +TMF75 PO
[2017-01-31 09:58] LABS: HEMATOCRIT 33.9 % (42-52)
[2017-01-31 10:20] LABS: FERRITIN 131.4 ng/ml (8.0-388.0)
== END | disposition home or self-care (01) ==
LOC: C.LAB1850 08:23
PROVIDERS: ATTEND Physician Assistant
DX: D64.9 Anemia, unspecified (principal)

== ENCOUNTER → 2017-02-21 | Outpatient (CLI) | payer OTHER ==
[~2017-02-21] VITALS: Ht 170.2 cm; Wt 110.6 kg
[2017-02-21 13:12] VITALS: BP 93/58; PULSE 94; Ht 170.2 cm; Wt 110.6 kg
== END | disposition home or self-care (01) ==
LOC: C.NEUR 12:40
PROVIDERS: ATTEND Internal Medicine Pulmonary Disease
DX: G47.33 Obstructive sleep apnea (adult) (pediatric) (principal); G47.34 Idiopathic sleep related nonobstructive alveolar hypoventilation; I50.810 Right heart failure, unspecified; J44.9 Chronic obstructive pulmonary disease, unspecified; G47.31 Primary central sleep apnea; I48.91 Unspecified atrial fibrillation

== ENCOUNTER → 2017-03-10 | Outpatient (CLI) | payer OTHER ==
[2017-03-10 12:28] LABS: BASO % 0.3 %; BASO ABS # 0.02 K/uL (0-0.2); EOS % 2.3 %; EOS ABS # 0.13 K/uL (0-0.5); HEMATOCRIT 34.2 % (42-52); HEMOGLOBIN 11.1 g/dL (14.0-18.0); IG# 0.02 K/uL (0.00-0.02); LYMPH % 17.8 %; LYMPH ABS # 1.02 K/uL (1.2-3.4); MEAN CORPUSCULAR HEMOGLOBIN 26.9 pg (25-34); MEAN CORPUSCULAR HGB CONC 32.5 g/dl (32-36); MONO % 13.6 %; MONO ABS # 0.78 K/uL (0.11-0.59); NEUT % 65.7 %; NEUT ABS # 3.75 K/uL (1.4-6.5); PLATELET COUNT 227 K/uL (130-400); RED CELL DISTRIBUTION WIDTH SD 48.5 fL (36.4-46.3); WHITE BLOOD COUNT 5.72 K/uL (4.8-10.8)
[2017-03-10 12:46] LABS: BLOOD UREA NITROGEN 38 mg/dl (7-18); CALCIUM 9.2 mg/dl (8.5-10.1); CARBON DIOXIDE 28 mmol/L (21-32); CREATININE 1.59 mg/dl (0.60-1.40); GLUCOSE 97 mg/dl (70-99); POTASSIUM 4.8 mmol/L (3.5-5.1); SODIUM 135 mmol/L (136-145)
[2017-03-10 12:58] LABS: HEMOGLOBIN A1C 5.6 % (4.5-5.6)
== END | disposition home or self-care (01) ==
LOC: C.LABPVFM 10:59
PROVIDERS: ATTEND Internal Medicine
DX: D64.9 Anemia, unspecified (principal); I50.810 Right heart failure, unspecified; E11.9 Type 2 diabetes mellitus without complications

== ENCOUNTER 2017-04-12 06:19 | Inpatient (IN) | payer OTHER ==
[2017-03-21 09:31] VITALS: BMI 38.0
[2017-04-12] VITALS (26 sets, daily range): BP systolic 96–145; BP diastolic 60–93; PULSE 85–109; TEMP 36.3–36.8; O2SAT 94–100; Ht 167.6 cm; Wt 109.4 kg
[~2017-04-12] VITALS: Ht 167.6 cm; Wt 109.4 kg
[~2017-04-12 06:19] MED LIST changes: +ALLO300T2 PO; +AMIO200T4 PO; +CEFAZOLIN 2000MG IV PUSH 15 ML IV SCH; -CRD200 PO; -CYAN100T6 PO; +DILT120C68 PO; -DILT180C50 PO; +IRON TAB PO; +LACTATED RINGER'S 1000ML 1,000 ML IV SCH; -TMF75 PO
[2017-04-12] MEDS ORDERED: LIDOCAINE HCL 1% 20 ML VIAL ONE (07:00)
[2017-04-12] MEDS ORDERED: BACITRACIN 50000 UNIT VIAL ONE (07:00)
[2017-04-12] MEDS ORDERED: BUPIVACAINE 0.5 % 5 MG/1 ML MPF 30ML VIAL ONE (07:00)
[2017-04-12] MEDS ORDERED: DexMEDEtomidine HCL IV 100 MCG/ML VIAL IV ONE ×2 (07:48→10:44)
[2017-04-12] MEDS ORDERED: PROPOFOL IV EMULSION 10 MG/ML 100 ML VIAL IV ONE (07:49)
[2017-04-12] MEDS ORDERED: MIDAZOLAM HCL 1 MG/ML 2ML VIAL ONE (07:51)
[2017-04-12] MEDS ORDERED: KETAMINE HCL INJ 50 MG/ML 10 ML VIAL ONE (07:51)
--- NOTE | 2017-04-12 07:51 | History & Physical Bridge Note ---
H&P Re-Evaluation Bridge Note: I have examined the patient, reviewed the History & Physical and in the interval since the performance of the History & Physical I have noted the following changes of clinical significance: No changes noted
[2017-04-12 07:52] LABS: CALCIUM 9.4 mg/dl (8.5-10.1); CREATININE 1.68 mg/dl (0.60-1.40)
[2017-04-12] MEDS ORDERED: CEFAZOLIN SOD 2000MG/15 ML IV PUSH IV ONE (08:10)
[2017-04-12] MEDS ORDERED: NURSING VERBAL MED ORDER ONE (08:15)
[2017-04-12] MEDS ORDERED: PHENYLEPHRINE 100MCG/ML 5ML SYR ONE ×2 (09:03→09:19)
[2017-04-12] MEDS ORDERED: PHENYLEPHRINE HCL INJ 10 MG/ML VIAL ONE ×4 (09:03→13:04)
[2017-04-12] MEDS ORDERED: ACETAMINOPHEN 325 MG TAB PO PRN (13:30)
[2017-04-12] MEDS ORDERED: ACETAMINOPHEN/CODEINE 300/30MG TAB PO PRN (13:30)
[2017-04-12] MEDS ORDERED: ALBUTEROL 0.083% NEBU SOLN 3 ML VIAL INH PRN (13:30)
[2017-04-12] MEDS ORDERED: DOCUSATE SODIUM/SENNA 50/8.6MG TAB PO PRN (13:30)
[2017-04-12] MEDS ORDERED: IV FLUIDS COMPLETED PRN (13:45)
[2017-04-12] MEDS ORDERED: FUROSEMIDE INJ 60 MG in SYRINGE 0 ML IV STA (14:11)
[2017-04-12] MEDS ORDERED: FUROSEMIDE 10 MG/ML 10 ML VIAL ONE (14:27)
--- NOTE | 2017-04-12 14:39 | Anesthesiology Progress Note ---
Anesthesia Post Op Note Date & Time Apr 12, 2017 at 14:39 Vital Signs Pain Intensity: 0 Vital Signs Past 12 Hours Date Time Temp Pulse Resp B/P (MAP) Pulse Ox O2 Delivery O2 Flow Rate FiO2 04/12/17 14:10 87 20 98/66 (77) 97 Nasal Cannula 4 04/12/17 14:00 87 20 96/69 (78) 96 Nasal Cannula 4 04/12/17 13:50 89 20 107/65 (79) 96 Nasal Cannula 4 04/12/17 13:40 86 20 98/67 (77) 95 Nasal Cannula 6 04/12/17 06:59 36.3 85 21 117/68 (84) 94 Room Air Notes Mental Status: alert / awake / arousable, participated in evaluation Pt Amnestic to Procedure: Yes Nausea / Vomiting: adequately controlled Pain: adequately controlled Airway Patency, RR, SpO2: stable & adequate BP & HR: stable & adequate Hydration State: stable & adequate Anesthetic Complications: no major complications apparent
--- NOTE | 2017-04-12 14:49 | [facility] Post Operative Brief Note ---
Immediate Operative Summary Operative Date Apr 12, 2017. Pre-Operative Diagnosis AF with RVR, Chronic diastolic HF-NYHA Class III Post-Operative Diagnosis same plus CHB Procedure(s) Performed biv pacemaker and avn ablation under fluoroscopy with peripheral and coronary sinus venograms Surgeon philip wright Lens Cementer Surgeon(s) none Estimated Blood Loss <20cc Findings See Below see official report Fluids (cc crystalloids) 1L Specimens none Drains None Anesthesia Type MAC Complication(s) none Disposition Accompanied Pt To Recover: yes Disposition: Surgical ICU
--- NOTE | 2017-04-12 15:08 | Critical Care Consultation ---
Critical Care Consultation Date of Consultation: Apr 12, 2017. Attending Physician: Liat Chavez D.O. Reason for Consultation: Respiratory distress History of Present Illness This is an obese 77 year old male POD#0 s/p AV node ablation with pacemaker insertion. The procedure was fairly long, approx 5 hours The patient was noted towards the end to be dyspneic, was transferred to ICU for further monitoring. Currently he is awake, although he appears mildly dyspneic, he states that he feels well, denies shortness of breath. Receiving Lasix now Past Medical/Surgical History A-fib CHF CAD, CABG in 2011 HTN COPD DM2 SANDOR Neuropathy Obesity Dyslipidemia Family History Cancer FHx: CAD (brothers) Hypertension Kidney disease Social History Smoking Status: Former Smoker Drug Use: none Marital Status: Housing Status: lives with significant other Occupation Status: retired Allergies Coded Allergies: No Known Allergies (Verified , 03/21/17) Home Medications Scheduled Allopurinol (Zyloprim), 150 MG PO HS Amiodarone Hcl (Cordarone), 200 MG PO QAM Aspirin (Aspirin Ec), 81 MG PO QAM Diltiazem Hcl Ext Rel (Tiazac), 120 MG PO NOON Fish Oil ([place]-3), 1 CAP PO QAM Fluticasone Prop/Salmeterol (Advair Diskus 250/50 60 Dose), 1 PUFF INH BID Fluticasone Propionate (Nasal) (Allergy Nasal [place] [address]), 2 SPRAY NA QAM Furosemide (Lasix), 2 TAB PO AM/NOON Hctz/Losartan (Hyzaar 25MG/100MG), 1 TAB PO QAM Ipratropium-Albuterol (Duoneb), 1 TREATMENT INH Q4H Latanoprost (Xalatan 0.005% Oph [place]), 1 DROPS OPL HS Magnesium Oxide (Magnesium), 250 MG PO QAM Metoprolol Tartrate (Lopressor) (Lopressor), 75 MG PO BID Omeprazole (Prilosec), 20 MG PO BID Potassium Chloride (Micro-K Ext Rel), 20 MG PO TID Rivaroxaban (Xarelto), 20 MG PO HS Simvastatin (Zocor), 10 MG PO QPM Spironolactone (Aldactone), 25 MG PO BID Terazosin (Hytrin), 5 MG PO QPM [Iron Tab], 65 MG PO QAM Scheduled PRN Albuterol Sulf (Proventil 0.083% 2.5MG/3ML), 2.5 MG INH BID PRN for Shortness of Breath Sennosides-Docusate Sodium (Senokot S), 1 TAB PO QDL PRN for Consult Current Inpatient Medications Current Inpatient Medications Medications (Trade) Dose Ordered Sig/Janee Route Start Time Stop Time Status Last Admin Dose Admin Lactated Ringer's 1,000 ml @ 15 mls/hr Q24H IV 04/12/17 06:00 04/13/17 05:59 04/12/17 07:18 15 MLS/HR Cefazolin Sodium 15 ml @ 3.75 mls/ min PREOP IV 04/12/17 06:00 04/12/17 18:00 04/12/17 08:13 3.75 MLS/MIN Acetaminophen/ Codeine Phosphate (Tylenol w/ Codeine #3 Tab) 1 tab for pain scale 4-6 2 t... Q4H PRN PO 04/12/17 13:30 05/12/17 13:29 Acetaminophen (Tylenol Tab) 650 mg Q4H PRN PO 04/12/17 13:30 05/12/17 13:29 Albuterol Sulfate (Ventolin 0.083% 2.5MG/3ML Neb) 2.5 mg BID PRN INH 04/12/17 13:30 05/12/17 13:29 Allopurinol (Zyloprim Tab) 150 mg HS PO 04/12/17 21:00 05/12/17 20:59 Aspirin (Ecotrin Tab) 81 mg QAM PO 04/13/17 09:00 05/13/17 08:59 Salmeterol Xinafoate/ Fluticasone (Advair Diskus 250/50 Inh) 1 puff BID INH 04/12/17 21:00 05/12/17 20:59 Furosemide (Lasix Tab) 80 mg DAILY PO 04/13/17 09:00 05/13/17 08:59 HCTZ/Losartan Potassium (Hyzaar 50-12.5 Tab) 1 tab QAM PO 04/13/17 09:00 05/13/17 08:59 Latanoprost (Xalatan Oph Soln) 1 drops HS OPL 04/12/17 21:00 4/6/18 20:59 Potassium Chloride (Klor-Con M10) 10 meq TID PO 04/12/17 21:00 05/12/17 20:59 Rivaroxaban (Xarelto Tab) 20 mg QDD PO 04/12/17 16:30 05/12/17 16:29 Senna/Docusate Sodium (Senokot S Tab) 1 tab QDL PRN PO 04/12/17 13:30 05/12/17 13:29 Simvastatin (Zocor Tab) 10 mg QPM PO 04/12/17 21:00 05/12/17 20:59 Spironolactone (Aldactone Tab) 25 mg BID17 PO 04/12/17 17:00 05/12/17 16:59 Terazosin HCl (Hytrin Cap) 5 mg QPM PO 04/12/17 21:00 05/12/17 20:59 Metoprolol Tartrate (Lopressor Tab) 25 mg BID PO 04/12/17 21:00 05/12/17 20:59 Miscellaneous (Iv Fluids Completed) 1 ea PRN PRN N/A 04/12/17 13:45 04/12/18 13:44 Review of Systems Constitutional: No fever, No chills Respiratory: No cough, No sputum, No shortness of breath Cardiovascular: + edema, No chest pain, No orthopnea Abdomen: No pain, No nausea Musculoskeletal: No joint pain Neurologic: No weakness Physical Exam Date Time Temp Pulse Resp B/P (MAP) Pulse Ox O2 Delivery O2 Flow Rate FiO2 04/12/17 14:10 87 20 98/66 (77) 97 Nasal Cannula 4 04/12/17 14:00 87 20 96/69 (78) 96 Nasal Cannula 4 04/12/17 13:50 89 20 107/65 (79) 96 Nasal Cannula 4 04/12/17 13:40 86 20 98/67 (77) 95 Nasal Cannula 6 04/12/17 06:59 36.3 85 21 117/68 (84) 94 Room Air General: Morbidly obese male, mildly dyspneic HEENT: NC/AT Lungs: faint b/l wheezing Chest: Left anterior chest pressure dressing CVS:S1S2 regular Abdomen: Obese, non-tender Ext: B/l LE edema INSTRUCTIONAL AIDE: No focal motor deficit, awake, alert, oriented x 3 Laboratory Results Last 24 Hours Test 04/12/17 07:22 04/12/17 14:11 Sodium Level 137 mmol/L Potassium Level 5.0 mmol/L Chloride Level 105 mmol/L Carbon Dioxide Level 28 mmol/L Anion Gap 3.0 mmol/L Blood Urea Nitrogen 34 mg/dl Creatinine 1.68 mg/dl Est Creatinine Clear Calc Drug Dose 41.0 ml/min Estimated GFR () 44.1 Estimated GFR (Non- 38.1 BUN/Creatinine Ratio 19.9 Random Glucose 94 mg/dl Calcium Level 9.4 mg/dl Diagnostic Results CXR reviewed by me: B/l lung vascular congestion Sternotomy wires Left chest pacemaker, Bi-V lead Assessment & Plan 77 year-old male with extensive medical history, with dyspnea post prolonged EP procedure. Acute on chronic respiratory failure SANDOR CHF A-fib, s/p AV node ablation with PPM insertion Plan: Monitor patient in the ICU Diurese the patient, resume Lasix Continue cardiac meds Fully anticoagulated with Xarelto previously, to be resumed when ok with EP Check ABG, he tends to retain CO2. In December he was actually intubated. Place on BIPAP. Wears CPAP at home, but prefer BIPAP for now Bronchodilators No need for antibiotics or steroids. The source of his respiratory distress is multifactorial, but doubt COPD exacerbation. A combination of CHF, worsened by prolonged supine position, obesity, sedation. DVT prophylaxis: SC heparin until anticoagulation is resumed Critical care time spent with the patient, reviewing the chart, discussing with consultants, greater than 35 minutes
[2017-04-12 15:09] LABS: HEMATOCRIT 33.2 % (42-52); HEMOGLOBIN 10.5 g/dL (14.0-18.0); MEAN CELL VOLUME 85.8 fL (80-100); MEAN CORPUSCULAR HEMOGLOBIN 27.1 pg (25-34); MEAN CORPUSCULAR HGB CONC 31.6 g/dl (32-36); MEAN PLATELET VOLUME 10.6 fL (7.4-10.4); PLATELET COUNT 197 K/uL (130-400); RED CELL DISTRIBUTION WIDTH CV 16.3 % (11.5-14.5); RED CELL DISTRIBUTION WIDTH SD 50.7 fL (36.4-46.3); WHITE BLOOD COUNT 9.59 K/uL (4.8-10.8)
[2017-04-12 15:14] LABS: CALCIUM 9.2 mg/dl (8.5-10.1); CREATININE 1.7 mg/dl (0.60-1.40); POTASSIUM 5.8 mmol/L (3.5-5.1)
--- NOTE | 2017-04-12 15:15 | DIAGNOSTIC IMAGING REPORT ---
CHEST ONE VIEW PORTABLE HISTORY: 77 years-old Male sob acute shortness of breath with atrial fibrillation COMPARISON: Chest radiograph 01/16/2017 TECHNIQUE: Portable AP view of the chest FINDINGS: Cardiac silhouette is again enlarged, unchanged. Atherosclerosis of the aorta. Interval placement of a left subclavian pacer with 2 leads present which appear intact. Prior median sternotomy with surgical clips projecting over the left heart border. Mild pulmonary vascular congestion without overt pulmonary edema. Trace bilateral pleural effusions with subsegmental bibasilar opacities suggesting atelectasis. No definite postprocedural pneumothorax, however there are telemetry leads and oxygen cannula overlying the left lung apex. IMPRESSION: 1. Interval placement of a left subclavian pacer without evidence of postprocedural pneumothorax. 2. Cardiomegaly with mild pulmonary vascular congestion. 3. Trace bilateral pleural effusions with bibasilar subsegmental opacities suggesting atelectasis. The above report was generated using voice recognition software. It may contain grammatical, syntax or spelling errors. Electronically signed by: Gio Allen M.D. 04/12/2017 3:13 PM Dictated Date/Time: 04/12/2017 3:11 PM
[2017-04-12 15:17] LABS: PHOSPHORUS 5.2 mg/dl (2.5-4.9)
[2017-04-12] MEDS: FLUTICASONE/SALMETEROL 250/50 (ADVAIR) 14 PUFF/1 INHALER INH SCH (19:51)
[2017-04-12] MEDS: ALLOPURINOL 300 MG TAB PO SCH (19:51)
[2017-04-12] MEDS: SPIRONOLACTONE 25 MG TAB PO SCH (19:52)
[2017-04-12] MEDS: METOPROLOL TARTRATE 25 MG TAB PO SCH (19:53)
[2017-04-12] MEDS: RIVAROXABAN 20 MG TAB PO SCH (19:53)
[2017-04-12] MEDS: SIMVASTATIN 10 MG TAB PO SCH (19:53)
[2017-04-12] MEDS: LATANOPROST 0.005% OP SOLN 2.5 ML BTL OPL SCH (19:55)
[2017-04-12] MEDS: POTASSIUM CHLORIDE 10 MEQ TABCR PO SCH (21:00)
[2017-04-13] VITALS (12 sets, daily range): BP systolic 86–151; BP diastolic 61–84; PULSE 79–113; TEMP 36.4–37.4; O2SAT 94–99
[2017-04-13 05:43] LABS: BASO % 0.3 %; BASO ABS # 0.02 K/uL (0-0.2); EOS % 0.8 %; EOS ABS # 0.06 K/uL (0-0.5); HEMATOCRIT 29.9 % (42-52); HEMOGLOBIN 9.7 g/dL (14.0-18.0); IG# 0.02 K/uL (0.00-0.02); LYMPH % 10.2 %; MEAN CELL VOLUME 82.6 fL (80-100); MEAN CORPUSCULAR HEMOGLOBIN 26.8 pg (25-34); MEAN CORPUSCULAR HGB CONC 32.4 g/dl (32-36); MEAN PLATELET VOLUME 10.1 fL (7.4-10.4); MONO % 9.9 %; MONO ABS # 0.78 K/uL (0.11-0.59); NEUT % 78.5 %; PLATELET COUNT 174 K/uL (130-400); RED CELL DISTRIBUTION WIDTH CV 15.9 % (11.5-14.5); RED CELL DISTRIBUTION WIDTH SD 48.2 fL (36.4-46.3); WHITE BLOOD COUNT 7.88 K/uL (4.8-10.8)
[2017-04-13 06:34] LABS: CALCIUM 8.6 mg/dl (8.5-10.1); CREATININE 1.59 mg/dl (0.60-1.40); PHOSPHORUS 3.6 mg/dl (2.5-4.9); POTASSIUM 4.4 mmol/L (3.5-5.1)
--- NOTE | 2017-04-13 07:30 | Clinical Documentation Query ---
DORINA Felder : CLINICAL DOCUMENTATION QUERIES QUERY 1 OF 2 Patient is a 77 year old female admitted to undergo biventricular pacemaker insertion, AVN ablation, peripheral and coronary sinus venograms. Documentation by anesthesia in the PACU setting included "Prior to discharge from PACU, patient was having some significantly increased work of breathing. Dr Vera saw the patient and ordered a nebulizer treatment with modest improvement in symptoms. Given his comorbidities and the nature of the procedure, Dr Vera discussed ICU observation of the patient overnight and perioperative BiPAP therapy with the training program assistant. " He was treated with IV Lasix, PPV, ICU monitoring, training program assistant consultation, CXR, ABG, labs. In your clinical opinion is this patient being managed for: ( ) Acute pulmonary insufficiency following biventricular pacemaker insertion, AVN ablation with peripheral and coronary sinus venograms ( ) Not Agree ( ) Other explanation of clinical findings (Please Explain) ( ) Unable to determine (Please Define) ( ) Need to Discuss The medical record reflects the following clinical findings, treatment, and risk factors. Clinical Indicators: As above Treatment: He was treated with IV Lasix, PPV, ICU monitoring, training program assistant consultation, CXR, ABG, labs, nebs. Risk Factors: Age, anesthesia, CHF, supine position, COPD QUERY 2 OF 2 EMR documentation on this visit includes the following: CHF, not otherwise specified, chronic respiratory failure, not otherwise specified. Historical EMR documentation includes specificity including chronic combined systolic and diastolic CHF and chronic hypoxemic and hypercapneic respiratory failure. Additionally, admission BUN and creatinine were 34 mg/dl and 1.68 mg/dl. Creatinine 01/18/17 was 0.98 mg/dl. There is no documented history of CKD. If you agree with these clinical diagnoses, please include them in your daily progress notes and discharge summary. Thank you. In your clinical opinion is this patient being managed for: ( ) Chronic combined systolic and diastolic CHF, chronic hypoxemic and hypercarbic respiratory failure, and YEIMI ( ) Not Agree ( ) Other explanation of clinical findings (Please Explain) ( ) Unable to determine (Please Define) ( ) Need to Discuss The medical record reflects the following clinical findings, treatment, and risk factors. Clinical Indicators: As above Treatment: PPV, diuretics, supplemental O2, ABG, PPV, training program assistant consultation, serial chemistries Risk Factors: Obesity, COPD, hypertension, CAD, history of NSTEMI Please clarify and document your clinical opinion in the progress notes and discharge summary. Terms such as "probable", "suspected", "likely", "questionable", "possible", or "still to be ruled out" are acceptable. IF IN AGREEMENT, YOU MUST DOCUMENT ABOVE DIAGNOSTIC STATEMENT IN DAILY PROGRESS NOTES AND DISCHARGE SUMMARY. This document is not part of the patient's record. Thank You, Dennis Arita, JACE [phone]
--- NOTE | 2017-04-13 07:47 | DIAGNOSTIC IMAGING REPORT ---
CHEST 2 VIEWS ROUTINE CLINICAL HISTORY: EXACT TIME ORDERED Evaluate for pneumothorax and lead placement COMPARISON STUDY: 04/12/2017 FINDINGS: Note again made of placement of a bipolar cardiac pacemaker. Leads appear to be intact. At the level of the battery pack there is 1 loose wire extending into the soft tissues several centimeters. No evidence pneumothorax. Slight increase in pleural reactive change left base. IMPRESSION: Bipolar cardiac pacemaker in good position. Mild increase in pleural reactive changes left base. Single loose wire projecting from the lateral margin of the battery pack several centimeters. No evidence pneumothorax. The above report was generated using voice recognition software. It may contain grammatical, syntax or spelling errors. Electronically signed by: Rajinder Galeana M.D. 04/13/2017 7:46 AM Dictated Date/Time: 04/13/2017 7:40 AM
[2017-04-13] MEDS: METOPROLOL TARTRATE 25 MG TAB PO SCH ×2 (07:53→20:45)
[2017-04-13] MEDS: POTASSIUM CHLORIDE 10 MEQ TABCR PO SCH ×3 (07:53→20:47)
[2017-04-13] MEDS: LOSARTAN/HCTZ 50-12.5 EA TAB PO SCH (07:53)
[2017-04-13] MEDS: ASPIRIN 81 MG ECTAB PO SCH (07:53)
[2017-04-13] MEDS: SPIRONOLACTONE 25 MG TAB PO SCH ×2 (07:54→17:20)
[2017-04-13] MEDS: FLUTICASONE/SALMETEROL 250/50 (ADVAIR) 14 PUFF/1 INHALER INH SCH ×2 (07:55→20:46)
[2017-04-13] MEDS ORDERED: FUROSEMIDE 80 MG TAB PO SCH (09:00)
--- NOTE | 2017-04-13 09:52 | Cardiology Follow-Up ---
Subjective Subjective Date of Service: Apr 13, 2017. Pt evaluation today including: conversation w/ patient, physical exam, lab review Pain: minimal at the incision site Problem List Medical Problems: (1) Atrial fibrillation with rapid ventricular response Status: Acute (2) Bilateral pneumonia Status: Acute (3) Cardiac ischemia Status: Acute (4) Influenza A Status: Acute (5) Pulmonary congestion Status: Acute (6) Respiratory failure Status: Acute (7) Right acetabular fracture Status: Acute Review of Systems Constitutional: + fatigue, No fever Respiratory: + wheezing Cardiac: + edema Abdomen: No nausea, No vomiting, No diarrhea Neurologic: + weakness Objective Vital Signs Last Vital Signs Documentation Date Time Temp Pulse Resp B/P (MAP) Pulse Ox O2 Delivery O2 Flow Rate FiO2 04/13/17 06:00 100 20 110/61 (77) 97 Nasal Cannula 4.0 04/13/17 04:00 37.0 04/12/17 22:41 40 Physical Exam: General Appearance: WD/WN, no apparent distress, + obese Eyes: bilateral eyes PERRL, bilateral eyes EOMI Neck: supple, no JVD Respiratory/Chest: normal breath sounds, no respiratory distress, + wheezing Cardiovascular: no JVD, no murmur, + tachycardia, + irregularly irregular Abdomen: normal bowel sounds, soft Extremities: + swelling Neurologic/Psychiatric: alert, oriented x 3 Skin: warm/dry (left pectoral incision intact; no hematoma; mild ecchymosis) Assessment and Plan Impression: 1. Permanent AF with RVR s/p BiV PPM 04/12/2017 and AVN ablation-which unfortunately did not hold 2. CAD h/o CABG 3. COPD 4. Chronic diastolic HF, NYHA Class III 5. HTn 6. HLD 7. DM Plan: -BiV pacemaker normal function -Unfortunately AVN ablation did not hold-will keep him NPO for redo procedure tomorrow -Can remove folly -Can transfer to PCU Discharge planning: home Medications: Medications Administered Medications (Trade) Dose Ordered Sig/Janee Route Start Time Stop Time Status Last Admin Dose Admin Lactated Ringer's 1,000 ml @ 15 mls/hr Q24H IV 04/12/17 06:00 04/12/17 15:09 DC 04/12/17 07:18 15 MLS/HR Cefazolin Sodium 15 ml @ 3.75 mls/ min PREOP IV 04/12/17 06:00 04/12/17 18:00 DC 04/12/17 08:13 3.75 MLS/MIN Allopurinol (Zyloprim Tab) 150 mg HS PO 04/12/17 21:00 05/12/17 20:59 04/12/17 19:51 150 MG Aspirin (Ecotrin Tab) 81 mg QAM PO 04/13/17 09:00 05/13/17 08:59 04/13/17 07:53 81 MG Salmeterol Xinafoate/ Fluticasone (Advair Diskus 250/50 Inh) 1 puff BID INH 04/12/17 21:00 05/12/17 20:59 04/13/17 07:55 1 PUFF HCTZ/Losartan Potassium (Hyzaar 50-12.5 Tab) 1 tab QAM PO 04/13/17 09:00 05/13/17 08:59 04/13/17 07:53 1 TAB Latanoprost (Xalatan Oph Soln) 1 drops HS OPL 04/12/17 21:00 05/12/17 20:59 04/12/17 19:55 1 DROPS Potassium Chloride (Klor-Con M10) 10 meq TID PO 04/12/17 21:00 05/12/17 20:59 04/13/17 07:53 10 MEQ Rivaroxaban (Xarelto Tab) 20 mg QDD PO 04/12/17 16:30 05/12/17 16:29 04/12/17 19:53 20 MG Simvastatin (Zocor Tab) 10 mg QPM PO 04/12/17 21:00 05/12/17 20:59 04/12/17 19:53 10 MG Spironolactone (Aldactone Tab) 25 mg BID17 PO 04/12/17 17:00 05/12/17 16:59 04/13/17 07:54 25 MG Terazosin HCl (Hytrin Cap) 5 mg QPM PO 04/12/17 21:00 05/12/17 20:59 04/12/17 19:54 5 MG Metoprolol Tartrate (Lopressor Tab) 25 mg BID PO 04/12/17 21:00 05/12/17 20:59 04/13/17 07:53 25 MG Furosemide (Lasix Inj) 10 mg STK-MED ONCE .ROUTE 04/12/17 14:27 04/12/17 14:28 DC 04/12/17 14:38 60 MG Lab Results: EC04/12/2017:BiV Paced 90bpm underlying AF CXR: Leads in Place No PTX BiV Pacemaker check: Stable and normal lead function from implant Last 24 Hours Test 04/12/17 14:42 04/12/17 15:18 04/12/17 18:10 04/13/17 05:17 White Blood Count 9.59 K/uL 7.88 K/uL Red Blood Count 3.87 M/uL 3.62 M/uL Hemoglobin 10.5 g/dL 9.7 g/dL Hematocrit 33.2 % 29.9 % Mean Corpuscular Volume 85.8 fL 82.6 fL Mean Corpuscular Hemoglobin 27.1 pg 26.8 pg Mean Corpuscular Hemoglobin Concent 31.6 g/dl 32.4 g/dl RDW Standard Deviation 50.7 fL 48.2 fL RDW Coefficient of Variation 16.3 % 15.9 % Platelet Count 197 K/uL 174 K/uL Mean Platelet Volume 10.6 fL 10.1 fL Sodium Level 136 mmol/L 134 mmol/L Potassium Level 5.8 mmol/L 4.4 mmol/L Chloride Level 105 mmol/L 101 mmol/L Carbon Dioxide Level 29 mmol/L 25 mmol/L Anion Gap 2.0 mmol/L 8.0 mmol/L Blood Urea Nitrogen 32 mg/dl 32 mg/dl Creatinine 1.70 mg/dl 1.59 mg/dl Est Creatinine Clear Calc Drug Dose 41.2 ml/min 42.9 ml/min Estimated GFR () 43.5 47.2 Estimated GFR (Non- 37.5 40.7 BUN/Creatinine Ratio 18.8 20.2 Random Glucose 93 mg/dl 92 mg/dl Calcium Level 9.2 mg/dl 8.6 mg/dl Phosphorus Level 5.2 mg/dl 3.6 mg/dl Magnesium Level 2.4 mg/dl 2.1 mg/dl Pro-B-Type Natriuretic Peptide 3197 pg/ml Bedside Venous pH 7.30 Bedside Venous pCO2 60 mmHg Bedside Venous pO2 < 32 mmHg Bedside Venous HCO3 29 meq/L Bedside Venous Blood Total CO2 31 mEq/l Bedside Venous Blood O2 Saturation 22.0 % Bedside Venous Blood Base Excess 3.0 meq/L Bedside Glucose 88 mg/dl Neutrophils (%) (Auto) 78.5 % Lymphocytes (%) (Auto) 10.2 % Monocytes (%) (Auto) 9.9 % Eosinophils (%) (Auto) 0.8 % Basophils (%) (Auto) 0.3 % Neutrophils # (Auto) 6.20 K/uL Lymphocytes # (Auto) 0.80 K/uL Monocytes # (Auto) 0.78 K/uL Eosinophils # (Auto) 0.06 K/uL Basophils # (Auto) 0.02 K/uL Immature Granulocyte % (Auto) 0.3 % Immature Granulocyte # (Auto) 0.02 K/uL Test 04/13/17 06:04 Bedside Glucose 108 mg/dl
[2017-04-13] MEDS: FUROSEMIDE 80 MG TAB PO SCH (10:02)
--- NOTE | 2017-04-13 12:44 | Critical Care Progress Note ---
Critical Care Progress Note Date of Service Apr 13, 2017. Attending Dr. Bradford Subjective Used BIPAP yesterday and partially overnight. Feels good today, no dyspnea, he is quite awake, up in chair Objective General: Morbidly obese male, comfortable HEENT: NC/AT Lungs: Distant breath sounds, clear b/l Chest: Left anterior chest wound intact, no discharge, no hematoma formation CVS:S1S2 regular Abdomen: Obese, non-tender Ext: B/l LE edema CASING SOAKER: No focal motor deficit, awake, alert, oriented x 3 Assessment & Plan 77 year-old male with extensive medical history, with dyspnea post prolonged EP procedure. Acute on chronic respiratory failure SANDOR CHF A-fib, s/p AV node ablation with PPM insertion Plan: Continue to use his own CPAP machine Continue diuresis Fully anticoagulated OOB to chair For redo AV node ablation tomorrow May transfer patient to telemetry, will sign off at this time Data Medications: Current Inpatient Medications Medications (Trade) Dose Ordered Sig/Janee Route Start Time Stop Time Status Last Admin Dose Admin Acetaminophen/ Codeine Phosphate (Tylenol w/ Codeine #3 Tab) 1 tab for pain scale 4-6 2 t... Q4H PRN PO 04/12/17 13:30 05/12/17 13:29 Acetaminophen (Tylenol Tab) 650 mg Q4H PRN PO 04/12/17 13:30 05/12/17 13:29 Albuterol Sulfate (Ventolin 0.083% 2.5MG/3ML Neb) 2.5 mg BID PRN INH 04/12/17 13:30 05/12/17 13:29 Allopurinol (Zyloprim Tab) 150 mg HS PO 04/12/17 21:00 05/12/17 20:59 04/12/17 19:51 150 MG Aspirin (Ecotrin Tab) 81 mg QAM PO 04/13/17 09:00 05/13/17 08:59 04/13/17 07:53 81 MG Salmeterol Xinafoate/ Fluticasone (Advair Diskus 250/50 Inh) 1 puff BID INH 04/12/17 21:00 05/12/17 20:59 04/13/17 07:55 1 PUFF HCTZ/Losartan Potassium (Hyzaar 50-12.5 Tab) 1 tab QAM PO 04/13/17 09:00 4/7/18 08:59 04/13/17 07:53 1 TAB Latanoprost (Xalatan Oph Soln) 1 drops HS OPL 04/12/17 21:00 05/12/17 20:59 04/12/17 19:55 1 DROPS Potassium Chloride (Klor-Con M10) 10 meq TID PO 04/12/17 21:00 05/12/17 20:59 04/13/17 07:53 10 MEQ Rivaroxaban (Xarelto Tab) 20 mg QDD PO 04/12/17 16:30 05/12/17 16:29 04/12/17 19:53 20 MG Senna/Docusate Sodium (Senokot S Tab) 1 tab QDL PRN PO 04/12/17 13:30 05/12/17 13:29 Simvastatin (Zocor Tab) 10 mg QPM PO 04/12/17 21:00 05/12/17 20:59 04/12/17 19:53 10 MG Spironolactone (Aldactone Tab) 25 mg BID17 PO 04/12/17 17:00 05/12/17 16:59 04/13/17 07:54 25 MG Terazosin HCl (Hytrin Cap) 5 mg QPM PO 04/12/17 21:00 05/12/17 20:59 04/12/17 19:54 5 MG Metoprolol Tartrate (Lopressor Tab) 25 mg BID PO 04/12/17 21:00 05/12/17 20:59 04/13/17 07:53 25 MG Miscellaneous (Iv Fluids Completed) 1 ea PRN PRN N/A 04/12/17 13:45 04/12/18 13:44 Furosemide (Lasix Tab) 80 mg QAM PO 04/13/17 09:00 05/13/17 08:59 04/13/17 10:02 80 MG I & O: 24-Hour Column 04/14/17 08:00 Intake Total 200 ml Output Total 900 ml Balance -700 ml Vital Signs: Date Time Temp Pulse Resp B/P (MAP) Pulse Ox O2 Delivery O2 Flow Rate FiO2 04/13/17 12:33 36.5 79 18 95 4.0 04/13/17 12:00 98 Nasal Cannula 4.0 04/13/17 12:00 36.5 79 18 151/80 (103) 95 Nasal Cannula 4.0 04/13/17 10:00 36.5 106 18 127/84 (98) 99 Nasal Cannula 4.0 04/13/17 08:00 36.5 106 18 138/65 (89) 98 Nasal Cannula 4.0 04/13/17 08:00 Nasal Cannula 04/13/17 08:00 98 Nasal Cannula 4.0 04/13/17 06:00 100 20 110/61 (77) 97 Nasal Cannula 4.0 04/13/17 04:00 37.0 107 18 129/73 (91) 97 Nasal Cannula 4.0 04/13/17 04:00 Nasal Cannula 4.0 04/13/17 02:00 98 20 86/63 (71) 98 Nasal Cannula 4.0 04/13/17 00:01 36.8 113 20 109/82 (91) 95 Nasal Cannula 4.0 04/12/17 23:59 Nasal Cannula 4.0 04/12/17 22:41 109 100 40 04/12/17 22:02 107 13 112/77 (91) 96 04/12/17 22:00 36.8 04/12/17 21:01 99 22 96/60 (85) 98 04/12/17 20:02 98 14 105/68 (83) 94 04/12/17 20:00 36.6 04/12/17 20:00 Nasal Cannula 4.0 04/12/17 18:31 96 22 120/72 (85) 98 04/12/17 18:17 97 23 130/78 (93) 100 04/12/17 18:14 106 100 40 04/12/17 18:01 99 19 145/82 (100) 100 04/12/17 18:00 36.4 04/12/17 17:46 98 21 131/93 (106) 99 04/12/17 17:31 99 26 139/87 (117) 96 04/12/17 17:16 88 18 134/88 (109) 100 04/12/17 17:02 103 21 132/76 (114) 97 04/12/17 16:47 93 19 144/85 (103) 96 04/12/17 16:31 93 17 140/82 (103) 99 04/12/17 16:21 90 97 40 04/12/17 16:16 90 19 126/84 (99) 100 04/12/17 16:01 88 19 124/92 (105) 100 04/12/17 16:00 BiPAP 40 04/12/17 15:32 91 21 116/93 (97) 100 04/12/17 15:16 89 26 110/84 (102) 97 04/12/17 15:08 36.3 90 35 111/77 (83) 96 04/12/17 14:31 36.3 89 20 110/76 97 Nasal Cannula 5.0 04/12/17 14:10 87 20 98/66 (77) 97 Nasal Cannula 4 04/12/17 14:00 87 20 96/69 (78) 96 Nasal Cannula 4 04/12/17 13:50 89 20 107/65 (79) 96 Nasal Cannula 4 04/12/17 13:47 101 20 96 Nasal Cannula 6.0 04/12/17 13:40 86 20 98/67 (77) 95 Nasal Cannula 6 Laboratory Results: Last 24 Hours Test 04/12/17 14:42 04/12/17 15:18 04/12/17 18:10 04/13/17 05:17 White Blood Count 9.59 K/uL 7.88 K/uL Red Blood Count 3.87 M/uL 3.62 M/uL Hemoglobin 10.5 g/dL 9.7 g/dL Hematocrit 33.2 % 29.9 % Mean Corpuscular Volume 85.8 fL 82.6 fL Mean Corpuscular Hemoglobin 27.1 pg 26.8 pg Mean Corpuscular Hemoglobin Concent 31.6 g/dl 32.4 g/dl RDW Standard Deviation 50.7 fL 48.2 fL RDW Coefficient of Variation 16.3 % 15.9 % Platelet Count 197 K/uL 174 K/uL Mean Platelet Volume 10.6 fL 10.1 fL Sodium Level 136 mmol/L 134 mmol/L Potassium Level 5.8 mmol/L 4.4 mmol/L Chloride Level 105 mmol/L 101 mmol/L Carbon Dioxide Level 29 mmol/L 25 mmol/L Anion Gap 2.0 mmol/L 8.0 mmol/L Blood Urea Nitrogen 32 mg/dl 32 mg/dl Creatinine 1.70 mg/dl 1.59 mg/dl Est Creatinine Clear Calc Drug Dose 41.2 ml/min 42.9 ml/min Estimated GFR () 43.5 47.2 Estimated GFR (Non- 37.5 40.7 BUN/Creatinine Ratio 18.8 20.2 Random Glucose 93 mg/dl 92 mg/dl Calcium Level 9.2 mg/dl 8.6 mg/dl Phosphorus Level 5.2 mg/dl 3.6 mg/dl Magnesium Level 2.4 mg/dl 2.1 mg/dl Pro-B-Type Natriuretic Peptide 3197 pg/ml Bedside Venous pH 7.30 Bedside Venous pCO2 60 mmHg Bedside Venous pO2 < 32 mmHg Bedside Venous HCO3 29 meq/L Bedside Venous Blood Total CO2 31 mEq/l Bedside Venous Blood O2 Saturation 22.0 % Bedside Venous Blood Base Excess 3.0 meq/L Bedside Glucose 88 mg/dl Neutrophils (%) (Auto) 78.5 % Lymphocytes (%) (Auto) 10.2 % Monocytes (%) (Auto) 9.9 % Eosinophils (%) (Auto) 0.8 % Basophils (%) (Auto) 0.3 % Neutrophils # (Auto) 6.20 K/uL Lymphocytes # (Auto) 0.80 K/uL Monocytes # (Auto) 0.78 K/uL Eosinophils # (Auto) 0.06 K/uL Basophils # (Auto) 0.02 K/uL Immature Granulocyte % (Auto) 0.3 % Immature Granulocyte # (Auto) 0.02 K/uL Test 04/13/17 06:04 Bedside Glucose 108 mg/dl
[2017-04-13] MEDS: RIVAROXABAN 20 MG TAB PO SCH (17:19)
[2017-04-13] MEDS: SIMVASTATIN 10 MG TAB PO SCH (20:45)
[2017-04-13] MEDS: ALLOPURINOL 300 MG TAB PO SCH (20:47)
[2017-04-13] MEDS: LATANOPROST 0.005% OP SOLN 2.5 ML BTL OPL SCH (20:48)
[2017-04-14] VITALS (14 sets, daily range): BP systolic 89–118; BP diastolic 57–74; PULSE 86–120; TEMP 36.6–37.1; O2SAT 95–100
[2017-04-14] MEDS: FLUTICASONE/SALMETEROL 250/50 (ADVAIR) 14 PUFF/1 INHALER INH SCH ×2 (08:56→19:47)
[2017-04-14] MEDS: POTASSIUM CHLORIDE 10 MEQ TABCR PO SCH ×3 (08:56→19:48)
[2017-04-14] MEDS: LOSARTAN/HCTZ 50-12.5 EA TAB PO SCH (08:57)
[2017-04-14] MEDS: SPIRONOLACTONE 25 MG TAB PO SCH ×2 (08:57→17:17)
[2017-04-14] MEDS: ASPIRIN 81 MG ECTAB PO SCH (09:01)
[2017-04-14] MEDS: FUROSEMIDE 80 MG TAB PO SCH (09:01)
[2017-04-14] MEDS: METOPROLOL TARTRATE 25 MG TAB PO SCH ×2 (09:02→19:49)
--- NOTE | 2017-04-14 12:55 | History & Physical Bridge Note ---
H&P Re-Evaluation Bridge Note: I have examined the patient, reviewed the History & Physical and in the interval since the performance of the History & Physical I have noted the following changes of clinical significance: pt had biv pacemaker implant and then AVN ablation unfortunately the AVN ablation did not hold so he is for redo AVN ablation today
--- NOTE | 2017-04-14 12:56 | Pre Sedation Assessment ---
Pre Sedation Assessment General Date of Sedation: Apr 14, 2017. Vital Signs Past 12 Hours Date Time Temp Pulse Resp B/P (MAP) Pulse Ox O2 Delivery O2 Flow Rate FiO2 04/14/17 11:49 Nasal Cannula 4.0 04/14/17 11:34 36.7 116 18 109/74 (86) 95 04/14/17 09:00 101 106/67 (80) 04/14/17 08:10 36.9 120 18 91/57 (68) 96 04/14/17 08:00 Nasal Cannula 4.0 04/14/17 04:00 CPAP 04/14/17 03:13 36.8 108 18 118/74 (89) 96 CPAP Review Cardiovascular: + tachycardia, + irregularly irregular Lungs: lungs clear, normal breath sounds Pre-Sedation Airway Assessment Smoking Status: Former Smoker Hx of Sleep Apnea: Yes Thyro-mental Distance: > 3 Finger Breadths Oral Cavity: Dentures Mallampati Classification: Class II ASA Classification: Class II NPO Status Date of Last Intake of Fluids: Apr 13, 2017 Time of Last Intake of Fluids: 2200 Date of Last Intake of Solids: Apr 13, 2017 Time of Last Intake of Solids: 1800 Procedure Planning Contraindications for Sedation: None Current Medications Reviewed: Yes Notes The planned sedation has been discussed with the patient. Informed Consent was obtained. I have identified the patient, determined the appropriateness of sedation and have assessed the patient immediately prior to the procedure. All medicine(s) and interventions are by my order.
[2017-04-14] MEDS ORDERED: FENTANYL CITRATE INJ 50 MCG/1 ML 2 ML VIAL ONE (13:07)
[2017-04-14] MEDS ORDERED: MIDAZOLAM HCL 5 MG/ML 1 ML VIAL ONE (13:08)
[2017-04-14] MEDS ORDERED: CEFAZOLIN SOD 1 GM VIAL ONE (13:17)
--- NOTE | 2017-04-14 14:33 | Post Sedation Assessment ---
Post Sedation Assessment General Date of Sedation Apr 14, 2017. Vital Signs: Vital Signs Past 12 Hours Date Time Temp Pulse Resp B/P (MAP) Pulse Ox O2 Delivery O2 Flow Rate FiO2 04/14/17 14:20 89 16 119/74 (89) 98 Nasal Cannula 6 04/14/17 14:07 89 16 127/73 (91) 98 Nasal Cannula 6 04/14/17 11:49 Nasal Cannula 4.0 04/14/17 11:34 36.7 116 18 109/74 (86) 95 04/14/17 09:00 101 106/67 (80) 04/14/17 08:10 36.9 120 18 91/57 (68) 96 04/14/17 08:00 Nasal Cannula 4.0 04/14/17 04:00 CPAP 04/14/17 03:13 36.8 108 18 118/74 (89) 96 CPAP Post Procedure Recovery Score Activity: (2) Moves 4 extremities * Respiration: (2) Deep breath/cough Circulation: (2) +/-20% PreAnes Value Consciousness: (2) Fully Awake Oxygen Saturation: (1) O2 needed for >90% Post Anesthesia Score: 9 Discharge Sedation Level of Care: Fast Track Phase II Post Sedation Plan On clinical assessment, the patient appears to have tolerated the sedation without complications. Patient is recovering as anticipated. Patient will continue to be monitored by nursing and may be discharged when sedation discharge criteria are met per below protocol. Upon Completions of procedure and additional 15 minutes continue every 5 minute vital signs and the P.A.R. score; then discharge to a Phase I or Fast Track to Phase II per the following guidelines: * Discharge Patient to appropriate Phase II area if PAR is 8 or greater or return to pre- procedure baseline. The post - procedure orders will be as directed. * If PAR score is less than 8 or not return to pre-procedure baseline then patient will follow Phase I monitoring till PAR is reached for Phase II. The Phase I may be done in procedure room or may call to secure a Phase I area. * If naloxone or flumazenil are used for reversal, hold in Phase I for an additional 60 -120 minutes before discharge to Phase II. Please call the Sedation Physician to re-evaluate and complete post-note for discharge to Phase II area. Do NOT discharge from procedure sedation or Phase 1 until post- sedation evaluation note is complete by procedure /sedation MD Sedation Discharge Instructions to be given to the patient at discharge to home.
--- NOTE | 2017-04-14 14:35 | [facility] Post Operative Brief Note ---
Immediate Operative Summary Operative Date Apr 14, 2017. Pre-Operative Diagnosis AF with RVR, Chronic diastolic HF-NYHA Class III, unsuccessful AVN ablation Post-Operative Diagnosis same plus CHB Procedure(s) Performed avn ablation under fluoroscopy and BiV Pacemaker interogation Surgeon philip wright Trestle Mechanic Surgeon(s) none Estimated Blood Loss <5cc Findings See Below see official report Fluids (cc crystalloids) 75cc Specimens none Drains None Anesthesia Type IV Sedat Cons RN Only Complication(s) none Disposition Accompanied Pt To Recover: yes Disposition: PCU
[2017-04-14] MEDS ORDERED: XRL15 PO (14:36)
--- NOTE | 2017-04-14 14:38 | Discharge Instructions ---
Discharge Instructions Date of Service Apr 14, 2017. Admission Reason for Admission: AFIB Discharge Discharge Diagnosis / Problem: af Discharge Goals Goal(s): Improve function Activity Recommendations Activity Limitations: as noted below Lifting Limitations: no more than 10 pounds (do not lift the left elbow over the left shoulder for 1 month; do not lift anything heavy for 2 weeks) Shower/Bathe: tomorrow Driving or Machine Use: resume 1 day after discharge . Instructions / Follow-Up Instructions / Follow-Up ACTIVITY RECOMMENDATIONS: * Do not raise affected arm over head for 4 weeks. SPECIAL CARE INSTRUCTIONS: * If bleeding occurs, apply direct pressure to area for 5 minutes. * Call your doctor if you have severe pain, fever, drainage or bleeding at site. * Keep dry for 24. * Keep any scheduled doctor's appointment. * Implant Card - hand held device with website information given. SKIN IRRITATION: * You may experience some redness and/or swelling in the area where radiation was administered. If any skin irritation occurs, please contact your family physician. FOLLOW UP VISIT: Keep any scheduled doctor appointments. Current Hospital Diet Patient's current hospital diet: AHA Diet (Heart Healthy), Low Sodium Diet (2gm Na) Discharge Diet Recommended Diet: AHA Diet (Heart Healthy), Low Sodium Diet (2gm Na), Diabetes Type 2 Diet Procedures Procedures Performed: avn ablation under fluoroscopy and BiV Pacemaker interogation and redo avn ablation Pending Studies Studies pending at discharge: no Laboratory Results Hemoglobin A1c Test 03/10/17 11:10 Range/Units Estimated Average Glucose 114 mg/dl Hemoglobin A1c 5.6 4.5-5.6 % Medical Emergencies . Who to Call and When: Medical Emergencies: If at any time you feel your situation is an emergency, please call 911 immediately. . Non-Emergent Contact Non-Emergency issues call your: Superintendent Power . . "Provider Documentation" section prepared by Liat Chavez. .
--- NOTE | 2017-04-14 14:44 | Discharge Summary ---
Discharge Summary Date of Service Apr 14, 2017. Discharge Summary Admission Date: Apr 12, 2017 at 15:36 Discharge Date: Apr 15, 2017 Discharge Disposition: Home Principal Diagnosis: Permanent AF with RVR Secondary Diagnoses/Problems: Chronic diastolic HF, NYHA Class III CAD s/p PCI LAD in 2000; CABG 03/2011 REILLY-LAD, SVG-OM and SVG-PDA HTN HLD SANDOR on CPAP DM Procedures: BiV pacemaker and AVN ablation x2 Medication Reconciliation New Medications: Rivaroxaban (Xarelto) 15 Mg Tab 15 MG PO QDD for 30 Days, #30 TAB Continued Medications: Albuterol Sulf (Proventil 0.083% 2.5MG/3ML) 2.5 Mg/3 Ml Nebu 2.5 MG INH BID PRN for Shortness of Breath, EA Allopurinol (Zyloprim) 300 Mg Tab 150 MG PO HS, TAB Aspirin (Aspirin Ec) 81 Mg Tab 81 MG PO QAM PT WILL CHECK WITH SURGEON Fish Oil (Delta-3) 1 Ea Cap 1 CAP PO QAM Fluticasone Prop/Salmeterol (Advair Diskus 250/50 60 Dose) 1 Ea Aerp 1 PUFF INH BID, INHALER Fluticasone Propionate (Nasal) (Allergy Nasal [place] 24 Ho) 50 Mcg/Act Spr 2 SPRAY NA QAM Furosemide (Lasix) 40 Mg Tab 2 TAB PO AM/NOON, TAB Hctz/Losartan (Hyzaar 25MG/100MG) Tab 1 TAB PO QAM Ipratropium-Albuterol (Duoneb) 3 Ml Nebu 1 TREATMENT INH Q4H, INHA Latanoprost (Xalatan 0.005% Oph Fannie) 0.005 % Fannie 1 DROPS OPL HS, #7.5 ML 3 Refills Magnesium Oxide (Magnesium) 250 Mg Tab 250 MG PO QAM Metoprolol Tartrate (Lopressor) (Lopressor) 50 Mg Tab 75 MG PO BID Omeprazole (Prilosec) 20 Mg Capcr 20 MG PO BID, CAP Potassium Chloride (Micro-K Ext Rel) 10 Meq Capcr 20 MG PO TID breakfast,lunch & dinner Sennosides-Docusate Sodium (Senokot S) 1 Tab Tab 1 TAB PO QDL PRN for Consult, TAB Simvastatin (Zocor) 10 Mg Tab 10 MG PO QPM, TAB Spironolactone (Aldactone) 25 Mg Tab 25 MG PO BID, TAB Terazosin (Hytrin) 5 Mg Cap 5 MG PO QPM, CAP [Iron Tab] () 65 MG PO QAM Discontinued Medications: Amiodarone Hcl (Cordarone) 200 Mg Tab 200 MG PO QAM, TAB Diltiazem Hcl Ext Rel (Tiazac) 120 Mg Capcr 120 MG PO NOON, CAP Rivaroxaban (Xarelto) 20 Mg Tab 20 MG PO HS PT HAS INSTRUCTIONS FROM SURGEON Admission Information Physical Exam (per Admitting): aaox3, NAD Supple No JVD Irregular S1/S2 tachycardia, +murmur CTA b/l w/r/r Soft NT/ND Trace LE edema b/l No focal deficits Skin intact Hospital Course Pt admitted for elective BiV pacemaker followed by an AVN ablation due to permanent AF with RVR and chronic diastolic HF, NYHA Class III. He underwent procedure without any complications; he was transferred to the ICU post procedure to monitor due to respiratory status-improved with BiPAP and IV lasix ; he was monitored overnight. Unfortunately next morning he was conducting his AFib indicating the AVN ablation did not hold. He was transferred to PCU monitored overnight and had redo AVN ablation on 04/14/2017 that was successful. He was monitored overnight and discharged home. Total time spent on discharge = 30 minutes This includes examination of the patient, discharge planning, medication reconciliation, and communication with other providers. Discharge Instructions ACTIVITY RECOMMENDATIONS: * Do not raise affected arm over head for 4 weeks. SPECIAL CARE INSTRUCTIONS: * If bleeding occurs, apply direct pressure to area for 5 minutes. * Call your doctor if you have severe pain, fever, drainage or bleeding at site. * Keep dry for 24hours. * Keep any scheduled doctor's appointment. * Implant Card - hand held device with website information given. SKIN IRRITATION: * You may experience some redness and/or swelling in the area where radiation was administered. If any skin irritation occurs, please contact your family physician. FOLLOW UP VISIT: Keep any scheduled doctor appointments.
[2017-04-14] MEDS ORDERED: RIVAROXABAN TAB 15 MG TAB PO SCH (16:45)
[2017-04-14] MEDS: LATANOPROST 0.005% OP SOLN 2.5 ML BTL OPL SCH (19:47)
--- NOTE | 2017-04-14 19:47 | OPERATIVE REPORT ---
DATE OF OPERATION: 04/12/2017 PREOPERATIVE DIAGNOSIS: Permanent atrial fibrillation with rapid ventricular response despite multiple high doses of AV gerald blockers, chronic diastolic heart failure, [place] Heart Association class 3. POSTOPERATIVE DIAGNOSIS: Same. PROCEDURE: Biventricular rate responsive permanent pacemaker under fluoroscopic guidance along with a peripheral venogram and coronary sinus venogram followed then by an AV gerald ablation. SURGEON: Liat Chavez DO. TATTOO AND BODY ARTIST: None. ANESTHESIA: Monitored anesthetic care administered via anesthesiology. Total of 2 mg of Versed, 1000 mg of propofol, 80 mg of ketamine and 200 mcg of Precedex. IV CONTRAST: 75 mL. COMPLICATIONS: None. BLOOD LOSS: Less than 30 mL. FINDINGS: See below. DRAINS: None. INDICATIONS: This is a 77-year-old gentleman who has a past medical history for permanent atrial fibrillation with rapid ventricular response despite high doses of beta gonsalo, amiodarone and Cardizem. His CHADS2-VASc score is a 6, coronary artery disease, history of PCI due to a non-STEMI in 1999 as well as PCI to the LAD in 2000, followed then by a CABG in 2011, REILLY to LAD, SVG to OM, and SVG to PDA, chronic diastolic heart failure, [place] Heart Association class 3, diabetes, hypertension, hyperlipidemia, obstructive sleep apnea on CPAP, COPD, obesity and he had influenza A back in January of 2017. Due to his permanent atrial fibrillation with rapid ventricular response and recurrent heart failure, he was recommended a biventricular pacemaker followed by an AV gerald ablation. CONSENT: Consent was obtained prior to the patient going into the electrophysiology lab. The patient was informed of risks, benefits and alternatives to the procedure. Risks include but not limited to sudden cardiac , cardiac arrhythmias, cerebrovascular accident, myocardial infarction, injury to the blood vessels, chamber of the heart, lungs, bleeding and infection. The patient understood these risks and agreed to the procedure as planned. Informed consent was obtained. DESCRIPTION OF THE PROCEDURE: The patient was brought into the electrophysiology lab in a fasting state. He was connected to continuous gasket former. A timeout was performed to ensure patient identity and procedure correctly. The patient was prepped and draped over the left infraclavicular space in normal surgical standard fashion. [place] precautions were maintained throughout the procedure. Monitored anesthetic care was given throughout the procedure for patient's comfort level. 10 mL of 1% lidocaine, bupivacaine mixture were given in the left deltopectoral groove. Incision was made in the left deltopectoral groove. Blunt dissection was performed down to identify the cephalic vein; however, none could be identified, so peripheral venogram using 10 mL of IV contrast diluted in 10 mL of saline followed by a flush was used to identify the axillary vein. Venous axillary access was obtained in 2 separate stick without any problems. The more lateral stick, we inserted a 9.5-German sheath and then removed the guidewire and dilator and the right ventricular pacing lead was then advanced into right ventricle and positioned into right ventricular apex under fluoroscopic guidance. There was adequate pacing and sensing thresholds and no diaphragmatic stimulation with high output pacing. The 8-German sheath was peeled away and lead was fixated to pectoralis muscle using 0 silk suture. A 9.5-German sheath was then inserted over the more medial axillary stick over the guidewire and the guidewire and dilator removed. A MPX outer catheter was advanced into the right atrium over a Glidewire without any resistance. Then the Glidewire and dilator were removed and a diagnostic coronary sinus Decapolar catheter was used to cannulate the coronary sinus. We then did a coronary sinus venogram. He had a few branches that were in an adequate posterior lateral area. The coronary sinus did have a kind of S-shaped take off of, then all of its branches did as well. Initially, I was trying for a lower branch; however, I never had enough support due to the S shape of the coronary sinus os and then also the takeoff of the branch. I even tried switching outer sheath to the extended hook but this did not help, so then I aimed to try a higher branch that also did have some curve and S-shaped takeoff as well. Eventually, I was able to whisper this branch and get the MPX outer guide all the way up to the branch and then using a straight left ventricular pacing lead, I was able to advance it into the branch and we had adequate impedance and pacing with no diaphragmatic stimulation with high output pacing. We did have diaphragm stimulation at 10 volts as well as at 5 volts but nothing after that. The sheaths were then split under fluoroscopic guidance and then the 9.5-German sheath was peeled away under fluoroscopic guidance, a pacemaker pocket was created using blunt dissection over the pectoralis muscle within the pectoralis fascia. The lead was fixated to pectoralis muscle using 0 silk suture. The pocket was flushed with copious amounts of bacitracin saline wash and inspected for hemostasis. The pacemaker was then attached to the leads making sure that the leads were in appropriate position, passed set screws and set screws were all tightened. The pulse generator was then placed in the pocket, making sure that the leads were lying flat beneath the device. A stay stitch using 0 silk suture was used to secure the device to the pectoralis muscle. Luis stat t was placed in the pocket as patient is on Xarelto. Then the incision was closed in a 3-layer fashion with 2-0 Vicryl interrupted suture, followed by 3-0 Vicryl interrupted suture, followed by 4-0 Monocryl interrupted stitch and Dermabond was applied. We then reprepped the patient sterilely over the bilateral groins to set up to do the AV gerald ablation. 10 mL of 1% lidocaine were given in the right femoral groin area and then using the modified Seldinger technique, right femoral venous access was obtained and the SRO sheath was inserted up to the heart under fluoroscopic guidance. Using an DF curve ablation catheter, gave a series of ablations at 70 gamez. I never got the greatest of temperatures. There were really only in the low 40s but at 1 juncture we did obtain heart block. I gave another 3 minutes of radiofrequency ablation at this point and monitored for about 20 minutes and he maintained heart block. The HV was 58 milliseconds. The catheter was then pulled under fluoroscopic guidance and manual compression was used to establish hemostasis. EQUIPMENT: 1. Pulse generator is a [employer] SureScan [id number], serial #[id number]. 2. Right ventricular lead, Medtronic 5076-58 cm, serial #[id number]. 3. Right ventricular lead Medtronic 4398-88 cm, serial #[id number]. 4. The plug in the right atrial lead is a [id number], lot #[id number]. INTRAOPERATIVE TESTIN. Right ventricular lead: R waves 3.3 millivolts, impedance 849 ohms, threshold 1 volt at 1.3 milliamps. 2. Left ventricular lead: Programmed LV4-LV 1, impedance 2008 ohms, threshold 2.5 volts at 2.7 milliamps. FINAL MEASUREMENTS THROUGH THE DEVICE: 1. He did have escape conduction in the 40s. His R waves were 3.9 millivolts, impedance 770 ohms, threshold 1 volt at 0.4 milliseconds. 2. LV, programmed LV4, unipolar held for 3.5 volts at 1 millisecond. FINAL PARAMETERS: VVI 90. Right ventricular amplitude 5 volts, pulse was 0.4 milliseconds, sensitivity 0.9 millivolts. Left ventricular amplitude 4.5 volts, pulse width 1 millisecond. IMPRESSION: Successful implantation of a biventricular permanent pacemaker under fluoroscopic guidance along with a peripheral and coronary sinus venogram followed then by an AV gerald ablation. PLAN: Monitor patient overnight, 12-lead ECG, chest x-ray. Anesthesia was concerned about his breathing, so we are going to watch him in the ICU. We will get a Curtis catheter and give him some IV Lasix in addition to some BiPAP. I will decrease his metoprolol, stop his amiodarone and Cardizem and he can continue his Xarelto, but at 50 mg since he does have some renal insufficiency. He is not to lift the left elbow above the left shoulder for 1 month. He cannot lift more than 10 pounds with the left arm for 2 weeks and he should follow up in our [facility] device clinic in 1 week's time and follow up with me in 1 month's time. I attest to the content of the Intraoperative Record and any orders documented therein. Any exception s are noted below.
[2017-04-14] MEDS: ALLOPURINOL 300 MG TAB PO SCH (19:48)
[2017-04-14] MEDS: SIMVASTATIN 10 MG TAB PO SCH (19:49)
--- NOTE | 2017-04-14 20:06 | OPERATIVE REPORT ---
DATE OF OPERATION: 04/14/2017 PREOPERATIVE DIAGNOSIS: Unsuccessful AV gerald ablation, permanent atrial fibrillation with rapid ventricular response and chronic diastolic heart failure, [place] Heart Association class 3. POSTOPERATIVE DIAGNOSES: Same in addition to complete heart block. PROCEDURE: Redo AV gerald ablation and device interrogation. SURGEON: Liat Chavez DO. ASSISTANTS: None. ANESTHESIA: Monitored conscious sedation administered under my supervision by Cinthia Piedra. Start time 13:12, end time 1407. 3 mg of Versed, 50 mcg of fentanyl. IV FLUIDS: 75 mL. ANTIBIOTICS: 3 grams of Ancef. ESTIMATED BLOOD LOSS: Minimal. COMPLICATIONS: None. FINDINGS: See below. DRAINS: None. INDICATIONS: This is a 77-year-old gentleman who has a past medical history for permanent atrial fibrillation with rapid ventricular response despite high dose of beta blockers, Cardizem and amiodarone, his CHADS2-VASc score is 6, he is on Xarelto, coronary artery disease, history of PCI after a non-STEMI in 1999, followed then by another in LAD PCI to 2000, followed then by CABG in 2011, REILLY to LAD, SVG to OM, and SVG to PDA, diabetes, hypertension, hyperlipidemia, obstructive sleep apnea on CPAP, COPD, chronic diastolic heart failure, [place] Heart Association class 3, influenza A back in January 2017 and obesity. He had undergone a biventricular pacemaker followed by an AV gerald ablation the other day by me; however, the next morning the AV gerald ablation did not hold, so he returns today for redo AV gerald ablation. CONSENT: Consent was obtained prior to the patient going into electrophysiology lab. The patient explained the risks, benefits, and alternatives of procedure. Risks include but not limited to sudden cardiac , cardiac arrhythmias, cerebrovascular accident, myocardial infarction, injury to the blood vessels, chamber of the heart, dislodgement of the pacing leads, bleeding and infection. The patient understood these risks and agreed to go to the procedure as planned. Informed consent was obtained. DESCRIPTION OF THE PROCEDURE: The patient was brought into the electrophysiology lab in fasting state. He was connected to continuous cardiac monitoring. A timeout was performed to ensure patient's identity and procedure correctly. The patient did receive prophylactic antibiotics prior to incision since he has a device. He was prepped and draped over the bilateral groins in a normal surgical standard fashion. Monitored conscious sedation was given throughout the procedure for patient's comfort level. [place] precautions were maintained throughout the procedure. 10 mL of 1% lidocaine were given in the right femoral groin. Then using the modified Seldinger technique, femoral venous access was obtained in the right groin and an SRO sheath was inserted over a guidewire without any resistance under fluoroscopic guidance. Then the ablation catheter was inserted. At this time, I used a FJ curve for a longer reach and the His was relocated and then we went on ablation at 70 gamez. I had better temperatures this time up into the high 40s and 50s. I felt like I had better contact as well. At 40 seconds into one of the ablations, we did get a heart block. We then gave a series of 5 ablations for 1 minute duration. We then watched him for over 40 minutes and he remains in complete heart block. His pacemaker was rechecked and the leads remained stable after appropriate waiting. The ablation catheter was removed from the body under fluoroscopic guidance and then manual compression was used to hold after pulling the sheath to obtain hemostasis. PRE-ABLATION BIVENTRICULAR PACEMAKER INTERROGATION: R waves were 5.5, impedance was 500 on the RV and the threshold in the RV was 0.75 at 0.4. Impedance on the LV was 400 and the threshold was 3.5 volts at 1 millisecond. POST-ABLATION BIVENTRICULAR PACEMAKER INTERROGATION: 1. Right ventricular, there were no R-waves, impedance 513 ohms, threshold 0.75 volts at 0.4 milliseconds. 2. Left ventricular lead impedance 399, impedance threshold 0.5 volts at 1 millisecond. IMPRESSION: Successful atrioventricular gerald ablation with achievement of complete heart block and stable pacemaker and lead function. PLAN: Monitor patient overnight, 12-lead ECG. He is not to do any heavy lifting or squatting for a week and he will follow up in our [facility] device clinic in 1 week and with me in 1 month's time. I attest to the content of the Intraoperative Record and any orders documented therein. Any exception s are noted below.
[2017-04-15 03:59] VITALS: BP 105/65; PULSE 90; TEMP 36.6; O2SAT 96
[2017-04-15 07:52] VITALS: BP 100/58; PULSE 95; TEMP 37.3; O2SAT 93
[2017-04-15] MEDS: LOSARTAN/HCTZ 50-12.5 EA TAB PO SCH (08:02)
[2017-04-15] MEDS: POTASSIUM CHLORIDE 10 MEQ TABCR PO SCH (08:02)
[2017-04-15] MEDS: METOPROLOL TARTRATE 25 MG TAB PO SCH (08:02)
[2017-04-15] MEDS: ASPIRIN 81 MG ECTAB PO SCH (08:02)
[2017-04-15] MEDS: FLUTICASONE/SALMETEROL 250/50 (ADVAIR) 14 PUFF/1 INHALER INH SCH (08:02)
[2017-04-15] MEDS: FUROSEMIDE 80 MG TAB PO SCH (08:02)
[2017-04-15] MEDS: SPIRONOLACTONE 25 MG TAB PO SCH (08:03)
--- NOTE | 2017-04-15 10:10 | Cardiology Follow-Up ---
Subjective Subjective Date of Service: Apr 15, 2017. Pt evaluation today including: conversation w/ patient, conversation w/ family , physical exam, chart review, lab review, review of studies, review of inpatient medication list Additional Details: Pt seen and examined, oob in chair, at bedside. States that he is anxious for discharge. Denies cp, sob, palpitations, lightheadedness or dizziness. No discomfort at groin site. Tele reviewed: paced rhythm Problem List Medical Problems: (1) Atrial fibrillation with rapid ventricular response Status: Acute (2) Bilateral pneumonia Status: Acute (3) Cardiac ischemia Status: Acute (4) Influenza A Status: Acute (5) Pulmonary congestion Status: Acute (6) Respiratory failure Status: Acute (7) Right acetabular fracture Status: Acute Review of Systems Constitutional: + fatigue, No fever Respiratory: + wheezing, No see HPI, No cough, No sputum, No shortness of breath, No dyspnea on exertion, No dyspnea at rest, No hemoptysis, No problem reported Cardiac: + edema, No see HPI, No chest pain, No orthopnea, No PND, No claudication, No palpitations, No problem reported Abdomen: No nausea, No vomiting, No diarrhea Neurologic: + weakness Objective Vital Signs Last Vital Signs Documentation Date Time Temp Pulse Resp B/P (MAP) Pulse Ox O2 Delivery O2 Flow Rate FiO2 04/15/17 08:40 Room Air 04/15/17 07:52 37.3 95 20 100/58 (72) 93 04/14/17 19:27 2.0 04/14/17 14:50 100 Physical Exam: General Appearance: WD/WN, no apparent distress, + obese Eyes: bilateral eyes normal inspection, bilateral eyes PERRL, bilateral eyes EOMI ENT: normal ENT inspection, hearing grossly normal, pharynx normal Neck: supple, no adenopathy, thyroid normal, no JVD, no carotid bruits, trachea midline Respiratory/Chest: chest non-tender, lungs clear, normal breath sounds, no respiratory distress, no accessory muscle use Cardiovascular: regular rate, rhythm, no edema, no JVD, no murmur, + gallop/S4 Abdomen: normal bowel sounds, non tender, soft, no organomegaly, no pulsatile mass Extremities: non-tender, normal inspection, no calf tenderness, + swelling Neurologic/Psychiatric: airplane cover maker II-XII nml as tested, no motor/sensory deficits, alert, normal mood/affect, oriented x 3 Skin: normal color, warm/dry (left pectoral incision intact; no hematoma; mild ecchymosis), no rash Lymphatic: no adenopathy Assessment and Plan 1. AV gerald ablation successful patient tolerated well anxious for discharge, will d/c to home now prescriptions and follow up already arranged Discharge planning: home
[2017-04-15 10:12] VITALS: BP 100/58; PULSE 95; TEMP 37.3; O2SAT 93
== END 2017-04-15 11:22 | disposition home or self-care (01) | DRG 242 ==
LOC: C.ACU 06:19 → ENRESERV 10:17 → UNDOADMOB 13:32 → C.2E 13:32 → C.MSICU 13:32 → CMPBEDREQ 14:09 → INTOOBSV 15:36 → OBSVTOIN 15:36 → ENRESERV 04-13 12:17 → C.2T 04-13 12:38 → C.MSICU 04-13 12:38
PROVIDERS: ADMIT Internal Medicine; ATTEND Internal Medicine
PROC: 02583ZZ Destruction of Conduction Mechanism, Percutaneous Approach (ICD-10-PCS; principal; 2017-04-12 08:00)
PROC: 02HK3JZ Insertion of Pacemaker Lead into Right Ventricle, Percutaneous Approach (ICD-10-PCS; principal; 2017-04-12 08:00)
PROC: 0JH607Z Insertion of Cardiac Resynchronization Pacemaker Pulse Generator into Chest Subcutaneous Tissue and Fascia, Open Approach (ICD-10-PCS; principal; 2017-04-12 08:00)
PROC: 02H63JZ Insertion of Pacemaker Lead into Right Atrium, Percutaneous Approach (ICD-10-PCS; principal; 2017-04-12 08:00)
PROC: 02583ZZ Destruction of Conduction Mechanism, Percutaneous Approach (ICD-10-PCS; 2017-04-14)
DX: I48.2 Chronic atrial fibrillation (principal); J96.20 Acute and chronic respiratory failure, unspecified whether with hypoxia or hypercapnia; I50.32 Chronic diastolic (congestive) heart failure; I11.0 Hypertensive heart disease with heart failure; I44.2 Atrioventricular block, complete; J44.9 Chronic obstructive pulmonary disease, unspecified; G47.33 Obstructive sleep apnea (adult) (pediatric); Z95.5 Presence of coronary angioplasty implant and graft; H90.3 Sensorineural hearing loss, bilateral; E11.40 Type 2 diabetes mellitus with diabetic neuropathy, unspecified; E86.9 Volume depletion, unspecified; Z68.38 Body mass index [BMI] 38.0-38.9, adult; I25.10 Atherosclerotic heart disease of native coronary artery without angina pectoris; I25.2 Old myocardial infarction; E78.5 Hyperlipidemia, unspecified; Z79.01 Long term (current) use of anticoagulants; Z87.891 Personal history of nicotine dependence

== ENCOUNTER → 2017-06-05 | Outpatient (CLI) | payer OTHER ==
[~2017-06-05] MED LIST changes: -AMIO200T4 PO; -CEFAZOLIN 2000MG IV PUSH 15 ML IV SCH; -DILT120C68 PO; -LACTATED RINGER'S 1000ML 1,000 ML IV SCH; -RIVA1TAB4 PO; +XRL15 PO
[2017-06-05 10:36] LABS: BASO % 0.2 %; BASO ABS # 0.01 K/uL (0-0.2); EOS % 2.5 %; EOS ABS # 0.15 K/uL (0-0.5); HEMATOCRIT 36.1 % (42-52); HEMOGLOBIN 11.6 g/dL (14.0-18.0); IG# 0.02 K/uL (0.00-0.02); LYMPH ABS # 0.78 K/uL (1.2-3.4); MEAN CELL VOLUME 85.1 fL (80-100); MEAN CORPUSCULAR HEMOGLOBIN 27.4 pg (25-34); MEAN CORPUSCULAR HGB CONC 32.1 g/dl (32-36); MEAN PLATELET VOLUME 11.2 fL (7.4-10.4); MONO % 11.7 %; NEUT % 72.3 %; NEUT ABS # 4.32 K/uL (1.4-6.5); PLATELET COUNT 219 K/uL (130-400); RED CELL DISTRIBUTION WIDTH CV 16.3 % (11.5-14.5); RED CELL DISTRIBUTION WIDTH SD 50.7 fL (36.4-46.3); WHITE BLOOD COUNT 5.98 K/uL (4.8-10.8)
[2017-06-05 10:58] LABS: BLOOD UREA NITROGEN 33 mg/dl (7-18); CALCIUM 9.1 mg/dl (8.5-10.1); CARBON DIOXIDE 26 mmol/L (21-32); GLUCOSE 101 mg/dl (70-99); POTASSIUM 4.8 mmol/L (3.5-5.1); SODIUM 138 mmol/L (136-145)
== END | disposition home or self-care (01) ==
LOC: C.LAB1850 08:52
PROVIDERS: ATTEND Internal Medicine
DX: N18.9 Chronic kidney disease, unspecified (principal)

== ENCOUNTER 2017-06-18 11:08 | Inpatient (IN) | payer OTHER ==
[~2017-06-18] VITALS: Ht 167.6 cm; Wt 104.1 kg
[2017-06-18] MEDS ORDERED: ALBUT/IPRATROP 3MG/0.5MG NEB 3 ML VIAL INH STA (11:23)
[2017-06-18] MEDS ORDERED: PIPERACILLIN/TAZOBACTAM 4.5 GM/100ML D5W IV STA (11:24)
--- NOTE | 2017-06-18 11:56 | DIAGNOSTIC IMAGING REPORT ---
CHEST ONE VIEW PORTABLE HISTORY: EVALUATE RESPIRATORY DISTRESS.DYSPNEA COMPARISON: Chest 04/13/2017. FINDINGS: Left-sided dual-chamber pacemaker/defibrillator. Postoperative changes. The heart is top normal in size. No pneumothorax. Suspect trace bilateral pleural effusions. Bibasilar linear densities suggestive of subsegmental atelectasis. There is mild pulmonary vascular congestion without overt edema. IMPRESSION: 1. Mild pulmonary vascular congestion without overt edema. 2. Suspect trace bilateral pleural effusions. Electronically signed by: Chepe Vaughn M.D. 06/18/2017 11:55 AM Dictated Date/Time: 06/18/2017 11:52 AM
[2017-06-18 12:17] VITALS: PULSE 70; O2SAT 100
[2017-06-18 12:18] LABS: INFLUENZA A PCR Neg for Influ A (NEG); INFLUENZA B PCR Neg for Influ B (NEG)
--- NOTE | 2017-06-18 12:21 | EMERGENCY ROOM VISIT NOTE ---
History Report prepared by Ana: Jesus Linda Under the Supervision of: Dr. Laci Beckford M.D. First contact with patient: 11:16 Stated Complaint: DIFF BREATHING/ [facility] History of Present Illness The patient is a 77 year old male who presents to the Emergency Room with complaints of constant SOB beginning three days ago. The patient states that he went to [facility] today for his SOB symptoms. He notes that he was referred to the emergency department today from [facility]. Per nurse, the patient was given aspirin, Solu-Medrol, one Duoneb at [facility], and two additional Duonebs en route to the hospital by EMS. The patient reports that the breathing treatments helped his symptoms. He denies any cough, CP, and fever. He states that he has a nebulizer and inhaler at home which he uses twice a day. He notes that he also wears a C-pap at home at night but does not wear oxygen. Per , the patient was in the emergency department last year and was diagnosed with double pneumonia. Source of History: patient Onset: three days ago Position: chest Quality: other (SOB) Timing: constant Modifying Factors (Relieving): other (breathing treatments) Associated Symptoms: No fevers, No cough, No chest pain Review of Systems See HPI for pertinent positives & negatives. A total of 10 systems reviewed and were otherwise negative. 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, chronic Surgical Problems: (1) History of cataract surgery (2) History of coronary artery stent placement (3) History of dental implant Family History Cancer FHx: CAD (brothers) Hypertension Kidney disease Social History Smoking Status: Former Smoker Alcohol Use: occasionally Drug Use: none Marital Status: Housing Status: lives with family Occupation Status: retired Current/Historical Medications Scheduled Allopurinol (Zyloprim), 150 MG PO HS Aspirin (Aspirin Ec), 81 MG PO QAM Fish Oil ([place]-3), 1 CAP PO QAM Fluticasone Prop/Salmeterol (Advair Diskus 250/50 60 Dose), 1 PUFF INH BID Fluticasone Propionate (Nasal) (Allergy Nasal [place] 24 Ho), 2 SPRAY NA QAM Furosemide (Lasix), 2 TAB PO AM/NOON Hctz/Losartan (Hyzaar 25MG/100MG), 1 TAB PO QAM Ipratropium-Albuterol (Duoneb), 1 TREATMENT INH Q4H Latanoprost (Xalatan 0.005% Oph Fannie), 1 DROPS OPL HS Magnesium Oxide (Magnesium), 250 MG PO QAM Metoprolol Tartrate (Lopressor) (Lopressor), 25 MG PO BID Omeprazole (Prilosec), 20 MG PO BID Potassium Chloride (Micro-K Ext Rel), 20 MG PO TID Rivaroxaban (Xarelto), 15 MG PO QDD Simvastatin (Zocor), 10 MG PO QPM Spironolactone (Aldactone), 25 MG PO BID Terazosin (Hytrin), 5 MG PO QPM [Iron Tab], 65 MG PO QAM Scheduled PRN Albuterol Sulf (Proventil 0.083% 2.5MG/3ML), 2.5 MG INH BID PRN for Shortness of Breath Sennosides-Docusate Sodium (Senokot S), 1 TAB PO QDL PRN for Consult Allergies Coded Allergies: No Known Allergies (Verified , 06/18/17) Physical Exam Vital Signs Date Time Temp Pulse Resp B/P (MAP) Pulse Ox O2 Delivery O2 Flow Rate FiO2 06/18/17 13:33 70 23 96 BiPAP 06/18/17 13:31 145/82 06/18/17 13:18 70 18 97 BiPAP 06/18/17 13:03 71 17 95 BiPAP 06/18/17 13:01 143/70 06/18/17 12:48 70 21 98 BiPAP 06/18/17 12:43 70 24 99 BiPAP 06/18/17 12:30 157/75 06/18/17 12:28 70 17 98 BiPAP 06/18/17 12:17 70 20 100 BiPAP/CPAP 28 06/18/17 12:17 70 100 28 06/18/17 12:13 70 18 100 BiPAP 06/18/17 11:58 70 21 99 BiPAP 06/18/17 11:53 70 18 100 BiPAP 06/18/17 11:52 142/70 06/18/17 11:38 70 19 96 Nasal Cannula 2.0 06/18/17 11:23 70 27 98 Nasal Cannula 2.0 06/18/17 11:20 70 06/18/17 11:17 111/67 06/18/17 11:15 96 Nasal Cannula 2.0 06/18/17 11:15 95 Room Air 06/18/17 11:15 36.7 70 14 111/67 95 Room Air 06/18/17 11:15 96 Nasal Cannula 2.0 Physical Exam GENERAL: Patient is in mild-moderate respiratory distress. HEENT: No acute trauma, normocephalic atraumatic, mucous membranes moist, no nasal congestion, no scleral icterus. NECK: No stridor, no adenopathy, no meningismus, trachea is midline. LUNGS: Some accessory muscle use, mild-moderate respiratory distress noted, increased respiratory rate, wheezing bilaterally, breath sounds equal. HEART: Without murmurs gallops or rubs, regular rate and rhythm. ABDOMEN: Soft, nontender, bowel sounds positive, no hernias, no peritonitis. EXTREMITIES: No cyanosis, full range of motion of all the joints without pain or difficulty, no signs for acute trauma, moderate bilateral pedal edema. NEUROLOGIC: Oriented x 3, no acute motor or sensory deficits, no focal weakness. SKIN: No rash, no jaundice, no diaphoresis. Medical Decision & Procedures ER Provider Diagnostic Interpretation: Radiology results as stated below per my review and radiologist interpretation: CHEST ONE VIEW PORTABLE FINDINGS: Left-sided dual-chamber pacemaker/defibrillator. Postoperative changes. The heart is top normal in size. No pneumothorax. Suspect trace bilateral pleural effusions. Bibasilar linear densities suggestive of subsegmental atelectasis. There is mild pulmonary vascular congestion without overt edema. IMPRESSION: 1. Mild pulmonary vascular congestion without overt edema. 2. Suspect trace bilateral pleural effusions. Electronically signed by: Chepe Vaughn M.D. 06/18/2017 11:55 AM Laboratory Results 06/18/17 12:10 Red Blood Count 4.06, Mean Corpuscular Volume 84.5, Mean Corpuscular Hemoglobin 27.3, Mean Corpuscular Hemoglobin Concent 32.4, Mean Platelet Volume 10.4, Neutrophils (%) (Auto) 78.6, Lymphocytes (%) (Auto) 13.8, Monocytes (%) (Auto) 5.9, Eosinophils (%) (Auto) 1.3, Basophils (%) (Auto) 0.2, Neutrophils # (Auto) 3.76, Lymphocytes # (Auto) 0.66, Monocytes # (Auto) 0.28, Eosinophils # (Auto) 0.06, Basophils # (Auto) 0.01 06/18/17 12:10 Test 06/18/17 11:29 06/18/17 11:31 06/18/17 12:10 Bedside Lactic Acid Venous 1.22 mmol/L (0.90-1.70) Influenza Type A (RT-PCR) Neg for Influ A (NEG) Influenza Type B (RT-PCR) Neg for Influ B (NEG) White Blood Count 4.78 K/uL (4.8-10.8) Red Blood Count 4.06 M/uL (4.7-6.1) Hemoglobin 11.1 g/dL (14.0-18.0) Hematocrit 34.3 % (42-52) Mean Corpuscular Volume 84.5 fL (80-100) Mean Corpuscular Hemoglobin 27.3 pg (25-34) Mean Corpuscular Hemoglobin Concent 32.4 g/dl (32-36) Platelet Count 214 K/uL (130-400) Mean Platelet Volume 10.4 fL (7.4-10.4) Neutrophils (%) (Auto) 78.6 % Lymphocytes (%) (Auto) 13.8 % Monocytes (%) (Auto) 5.9 % Eosinophils (%) (Auto) 1.3 % Basophils (%) (Auto) 0.2 % Neutrophils # (Auto) 3.76 K/uL (1.4-6.5) Lymphocytes # (Auto) 0.66 K/uL (1.2-3.4) Monocytes # (Auto) 0.28 K/uL (0.11-0.59) Eosinophils # (Auto) 0.06 K/uL (0-0.5) Basophils # (Auto) 0.01 K/uL (0-0.2) RDW Standard Deviation 48.2 fL (36.4-46.3) RDW Coefficient of Variation 15.6 % (11.5-14.5) Immature Granulocyte % (Auto) 0.2 % Immature Granulocyte # (Auto) 0.01 K/uL (0.00-0.02) Prothrombin Time 11.7 SECONDS (9.0-12.0) Prothromb Time International Ratio 1.1 (0.9-1.1) Activated Partial Thromboplast Time 31.7 SECONDS (21.0-31.0) Partial Thromboplastin Ratio 1.2 Anion Gap 6.0 mmol/L (3-11) Est Creatinine Clear Calc Drug Dose 47.0 ml/min Estimated GFR () 51.0 Estimated GFR (Non- 44.0 BUN/Creatinine Ratio 20.0 (10-20) Calcium Level 8.8 mg/dl (8.5-10.1) Magnesium Level 2.3 mg/dl (1.8-2.4) Total Bilirubin 0.3 mg/dl (0.2-1) Aspartate Amino Transf (AST/SGOT) 18 U/L (15-37) Alanine Aminotransferase (ALT/SGPT) 23 U/L (12-78) Alkaline Phosphatase 111 U/L (45-117) Troponin I < 0.015 ng/ml (0-0.045) Pro-B-Type Natriuretic Peptide 2995 pg/ml (0-1800) Total Protein 7.2 gm/dl (6.4-8.2) Albumin 3.2 gm/dl (3.4-5.0) Globulin 4.0 gm/dl (2.5-4.0) Albumin/Globulin Ratio 0.8 (0.9-2) Laboratory results reviewed by me. Medications Administered Medications (Trade) Dose Ordered Sig/Janee Route Start Time Stop Time Status Last Admin Dose Admin Albuterol/ Ipratropium (Duoneb) 12 ml NOW STAT INH 06/18/17 11:23 06/18/17 11:24 DC 06/18/17 11:23 12 ML Piperacillin Sod/ Tazobactam Sod (Zosyn Iv) 4.5 gm NOW STAT IV 06/18/17 11:24 06/18/17 11:26 DC 06/18/17 12:40 4.5 GM ECG Per My Interpretation Indication: SOB/dyspnea Rate (beats per minute): 70 Rhythm: other (ventricular pacemaker) Findings: other (No obvious acute ischemia, no ST elevation, no PVCs) ED Course 1117: The patient was evaluated in room C9. A complete history and physical exam was performed. 1123: Duoneb 12ml INH 1124: Zosyn Iv 4.5gm IV 1304: I reevaluated and updated the patient. He looks better. 1309: Upon reexamination the patient is stable. I discussed results and treatment plan with the patient. He verbalizes agreement and understanding. I spoke with Dr. Smith of the [facility]. We discussed the patient' s results and findings. The patient will be evaluated by Dr. Smith for further management. Medical Decision Differential diagnoses include: bronchitis, pneumonia, CHF, cardiac ischemia, anemia, electrolyte imbalance, PE, and pneumothorax. There is no leukocytosis or concerning anemia. No significant electrolyte abnormality, kidney failure or hepatitis. No coagulopathy. EKG shows a functioning ventricular pacemaker, no acute ischemia. Cardiac enzyme testing 1 is not consistent with acute cardiac injury. Chest film does not show pneumonia, CHF or pneumothorax. No significant mediastinal widening. Influenza testing was negative. Blood cultures are pending. BNP was slightly elevated consistent with potential fluid overload. Lactic acid level was not elevated making sepsis less likely. The patient had received a total of 3 DuoNeb's prior to arrival. He was given IM Solu-Medrol prior to arrival. He had received oral aspirin prior to arrival. The patient was short of breath and I did not think in need of more aggressive care. He was placed on BiPAP with a 1 hour DuoNeb. He received IV Zosyn as antibiotic coverage. With the above treatment, the patient is breathing easy, he feels markedly improved. He no longer seems to be in any respiratory distress. The patient appears to have an acute bronchitis with a flare of his COPD. There may be some fluid overload as part of the issue as well. I do think a hospital stay is warranted. I spoke to the patient and case management. The on -call hospitalist was consulted. Medication Reconcilliation Current Medication List: was personally reviewed by me Blood Pressure Screening Patient's blood pressure: Elevated blood pressure Elevated blood pressure will be monitored by hospitalist. Consults Time Called: [phone] Consulting Physician: Dr. Smith - Hospitalist, [facility] Returned Call: [phone] Discussed the patient's case. The patient will be evaluated for further management. Impression Primary Impression: Respiratory distress Additional Impressions: Acute bronchitis COPD exacerbation Scribe Attestation The scribe's documentation has been prepared under my direction and personally reviewed by me in its entirety. I confirm that the note above accurately reflects all work, treatment, procedures, and medical decision making performed by me. Departure Information Dispostion Being Evaluated By Hospitalist Referrals Ken Worthington M.D. (PCP) Problem Qualifiers
[2017-06-18 12:32] LABS: BASO % 0.2 %; BASO ABS # 0.01 K/uL (0-0.2); EOS % 1.3 %; EOS ABS # 0.06 K/uL (0-0.5); HEMATOCRIT 34.3 % (42-52); HEMOGLOBIN 11.1 g/dL (14.0-18.0); IG# 0.01 K/uL (0.00-0.02); LYMPH % 13.8 %; LYMPH ABS # 0.66 K/uL (1.2-3.4); MEAN CELL VOLUME 84.5 fL (80-100); MEAN CORPUSCULAR HEMOGLOBIN 27.3 pg (25-34); MEAN CORPUSCULAR HGB CONC 32.4 g/dl (32-36); MEAN PLATELET VOLUME 10.4 fL (7.4-10.4); MONO % 5.9 %; MONO ABS # 0.28 K/uL (0.11-0.59); NEUT % 78.6 %; NEUT ABS # 3.76 K/uL (1.4-6.5); PLATELET COUNT 214 K/uL (130-400); RED CELL DISTRIBUTION WIDTH CV 15.6 % (11.5-14.5); RED CELL DISTRIBUTION WIDTH SD 48.2 fL (36.4-46.3); WHITE BLOOD COUNT 4.78 K/uL (4.8-10.8)
[2017-06-18 12:42] LABS: INR 1.1 (0.9-1.1); PTT PATIENT 31.7 SECONDS (21.0-31.0)
[2017-06-18 12:50] LABS: ALBUMIN 3.2 gm/dl (3.4-5.0); ALT/SGPT 23 U/L (12-78); AST/SGOT 18 U/L (15-37); BLOOD UREA NITROGEN 30 mg/dl (7-18); CALCIUM 8.8 mg/dl (8.5-10.1); CARBON DIOXIDE 25 mmol/L (21-32); CREATININE 1.49 mg/dl (0.60-1.40); GLUCOSE 105 mg/dl (70-99); SODIUM 135 mmol/L (136-145)
[2017-06-18 12:55] LABS: ALKALINE PHOSPHATASE 111 U/L (45-117); TOTAL PROTEIN 7.2 gm/dl (6.4-8.2)
[2017-06-18] MEDS ORDERED: ALBUTEROL 0.083% NEBU SOLN 3 ML VIAL INH PRN (13:30)
[2017-06-18] MEDS ORDERED: FUROSEMIDE INJ 80 MG in SYRINGE 0 ML IV ONE (13:45)
[2017-06-18] MEDS ORDERED: FUROSEMIDE 40 MG/4 ML VIAL IV ONE (13:45)
[2017-06-18 14:00] VITALS: O2SAT 96; Ht 167.6 cm; Wt 104.1 kg
[2017-06-18] MEDS ORDERED: FUROSEMIDE 40 MG/4 ML VIAL ONE (14:11)
--- NOTE | 2017-06-18 14:35 | History and Physical ---
History & Physical Date & Time of Service: June 18, 2017 at 13:59 Chief Complaint: Diff Breathing/ [facility] Primary Care Physician: Ken Worthington M.D. History of Present Illness Source: patient, family, hospital records 77 y/o M Hx chronic AF, chronic anemia, HTN, HPL, CAD, CKD III, obesity, pacer, chronic diastolic CHF, COPD. The pt had become progressively SOB over the past day and described becoming diaphoretic with exertion. He denies fevers, a productive cough or CP. He initially presented to an urgent care center and was redirected to the hospital as he was hypoxic and exhibited mild respiratory distress. At the time of admission he is requiring BiPAP to maintain adequate saturation, however, he has exhibited clinical improvement following administration of steroids and an hour-long neb. Past Medical/Surgical History 1) COPD 2) Chronic anemia - Hb 9-11 3) CKD III 4) CAD - NSTEMI 2000 - L circ intervention 1999, LAD intervention 2000, CABG 2011 5) Chronic AF 6) HTN 7) HPL 8) Obese 9) Pacemaker 10) Chronic diastolic CHF 11) Gout Family History Cancer FHx: CAD (brothers) Hypertension Kidney disease Social History Smoking Status: Former Smoker Drug Use: none Marital Status: Housing status: lives with family, other Occupational Status: retired Immunizations History of Influenza Vaccine: Yes History of Tetanus Vaccine?: No History of Pneumococcal: No History of Hepatitis B Vaccine: No Allergies Coded Allergies: No Known Allergies (Verified , 06/18/17) Home Medications Scheduled Allopurinol (Zyloprim), 150 MG PO HS Aspirin (Aspirin Ec), 81 MG PO QAM Fish Oil ([place]-3), 1 CAP PO QAM Fluticasone Prop/Salmeterol (Advair Diskus 250/50 60 Dose), 1 PUFF INH BID Fluticasone Propionate (Nasal) (Allergy Nasal [place] 24 Ho), 2 SPRAY NA QAM Furosemide (Lasix), 2 TAB PO AM/NOON Hctz/Losartan (Hyzaar 25MG/100MG), 1 TAB PO QAM Ipratropium-Albuterol (Duoneb), 1 TREATMENT INH Q4H Latanoprost (Xalatan 0.005% Oph Fannie), 1 DROPS OPL HS Magnesium Oxide (Magnesium), 250 MG PO QAM Metoprolol Tartrate (Lopressor) (Lopressor), 25 MG PO BID Omeprazole (Prilosec), 20 MG PO BID Potassium Chloride (Micro-K Ext Rel), 20 MG PO TID Rivaroxaban (Xarelto), 15 MG PO QDD Simvastatin (Zocor), 10 MG PO QPM Spironolactone (Aldactone), 25 MG PO BID Terazosin (Hytrin), 5 MG PO QPM [Iron Tab], 65 MG PO QAM Scheduled PRN Albuterol Sulf (Proventil 0.083% 2.5MG/3ML), 2.5 MG INH BID PRN for Shortness of Breath Sennosides-Docusate Sodium (Senokot S), 1 TAB PO QDL PRN for Consult Review of Systems Constitutional: + sweats ( states he is diaphoretic with exertion), No fever, No chills Eyes: No worsening of vision ENT: No hearing loss, No nasal symptoms Respiratory: + wheezing, + shortness of breath, + dyspnea on exertion, + dyspnea at rest, No cough Cardiovascular: + problem reported (exertional dyspnea), No chest pain, No orthopnea Abdomen: No pain, No vomiting Musculoskeletal: No joint pain Genitourinary - Male: No hematuria, No dysuria, No urinary frequency Neurologic: No memory loss, No paralysis, No weakness Psychiatric: No depression symptoms Endocrine: No fatigue Hematologic / Lymphatic: No abnormal bleeding/bruising Integumentary: No rash Allergic / Immunologic: No environmental allergies Physical Exam Vital Signs Date Time Temp Pulse Resp B/P (MAP) Pulse Ox O2 Delivery O2 Flow Rate FiO2 06/18/17 13:33 70 23 96 BiPAP 06/18/17 13:31 145/82 06/18/17 13:18 70 18 97 BiPAP 06/18/17 13:03 71 17 95 BiPAP 06/18/17 13:01 143/70 06/18/17 12:48 70 21 98 BiPAP 06/18/17 12:43 70 24 99 BiPAP 06/18/17 12:30 157/75 06/18/17 12:28 70 17 98 BiPAP 06/18/17 12:17 70 20 100 BiPAP/CPAP 28 06/18/17 12:17 70 100 28 06/18/17 12:13 70 18 100 BiPAP 06/18/17 11:58 70 21 99 BiPAP 06/18/17 11:53 70 18 100 BiPAP 06/18/17 11:52 142/70 06/18/17 11:38 70 19 96 Nasal Cannula 2.0 06/18/17 11:23 70 27 98 Nasal Cannula 2.0 06/18/17 11:20 70 06/18/17 11:17 111/67 06/18/17 11:15 96 Nasal Cannula 2.0 06/18/17 11:15 95 Room Air 06/18/17 11:15 36.7 70 14 111/67 95 Room Air 06/18/17 11:15 96 Nasal Cannula 2.0 General Appearance: WD/WN Head: normocephalic Eyes: normal inspection ENT: normal ENT inspection, pharynx normal Neck: supple, + pertinent finding (Cannot assess JVD due to habitus) Respiratory/Chest: chest non-tender, + pertinent finding (Wheezing in all lung field - reduced air at bases ) Cardiovascular: regular rate, rhythm, + pertinent finding (faint sounds - no clear murmur) Abdomen/GI: normal bowel sounds, non tender, soft Back: normal inspection, no CVA tenderness Extremities/Musculoskelatal: + pedal edema Neurologic/Psych: rn homecare II-XII nml as tested, no motor/sensory deficits, alert, oriented x 3 Skin: + pertinent finding (Stasis chnages LEs) Diagnostics Laboratory Results Results Past 24 Hours Test 06/18/17 11:29 06/18/17 11:31 06/18/17 12:10 Range/Units Bedside Lactic Acid Venous 1.22 0.90-1.70 mmol/L Influenza Type A (RT-PCR) Neg for Influ A NEG Influenza Type B (RT-PCR) Neg for Influ B NEG White Blood Count 4.78 4.8-10.8 K/uL Red Blood Count 4.06 4.7-6.1 M/uL Hemoglobin 11.1 14.0-18.0 g/dL Hematocrit 34.3 42-52 % Mean Corpuscular Volume 84.5 80-100 fL Mean Corpuscular Hemoglobin 27.3 25-34 pg Mean Corpuscular Hemoglobin Concent 32.4 32-36 g/dl Platelet Count 214 130-400 K/uL Mean Platelet Volume 10.4 7.4-10.4 fL Neutrophils (%) (Auto) 78.6 % Lymphocytes (%) (Auto) 13.8 % Monocytes (%) (Auto) 5.9 % Eosinophils (%) (Auto) 1.3 % Basophils (%) (Auto) 0.2 % Neutrophils # (Auto) 3.76 1.4-6.5 K/uL Lymphocytes # (Auto) 0.66 1.2-3.4 K/uL Monocytes # (Auto) 0.28 0.11-0.59 K/uL Eosinophils # (Auto) 0.06 0-0.5 K/uL Basophils # (Auto) 0.01 0-0.2 K/uL RDW Standard Deviation 48.2 36.4-46.3 fL RDW Coefficient of Variation 15.6 11.5-14.5 % Immature Granulocyte % (Auto) 0.2 % Immature Granulocyte # (Auto) 0.01 0.00-0.02 K/uL Prothrombin Time 11.7 9.0-12.0 SECONDS Prothromb Time International Ratio 1.1 0.9-1.1 Activated Partial Thromboplast Time 31.7 21.0-31.0 SECONDS Partial Thromboplastin Ratio 1.2 Sodium Level 135 136-145 mmol/L Potassium Level 5.0 3.5-5.1 mmol/L Chloride Level 104 98-107 mmol/L Carbon Dioxide Level 25 21-32 mmol/L Anion Gap 6.0 3-11 mmol/L Blood Urea Nitrogen 30 7-18 mg/dl Creatinine 1.49 0.60-1.40 mg/dl Est Creatinine Clear Calc Drug Dose 47.0 ml/min Estimated GFR () 51.0 Estimated GFR (Non- 44.0 BUN/Creatinine Ratio 20.0 10-20 Random Glucose 105 70-99 mg/dl Calcium Level 8.8 8.5-10.1 mg/dl Magnesium Level 2.3 1.8-2.4 mg/dl Total Bilirubin 0.3 0.2-1 mg/dl Aspartate Amino Transf (AST/SGOT) 18 15-37 U/L Alanine Aminotransferase (ALT/SGPT) 23 12-78 U/L Alkaline Phosphatase 111 45-117 U/L Troponin I < 0.015 0-0.045 ng/ml Pro-B-Type Natriuretic Peptide 2995 0-1800 pg/ml Total Protein 7.2 6.4-8.2 gm/dl Albumin 3.2 3.4-5.0 gm/dl Globulin 4.0 2.5-4.0 gm/dl Albumin/Globulin Ratio 0.8 0.9-2 Microbiology Results 06/18/17 Blood Culture, Received Pending 06/18/17 Blood Culture, Received Pending Diagnostic Radiology CXR: 1. Mild pulmonary vascular congestion without overt edema. 2. Suspect trace bilateral pleural effusions. EKG V paced - nondiagnostic Impression Assessment and Plan 77 y/o M Hx chronic AF, chronic anemia, HTN, HPL, CAD, CKD III, obesity, pacer, chronic diastolic CHF, COPD. The pt had become progressively SOB over the past day and described becoming diaphoretic with exertion. He denies fevers, a productive cough or CP. He initially presented to an urgent care center and was redirected to the hospital as he was hypoxic and exhibited mild respiratory distress. At the time of admission he is requiring BiPAP to maintain adequate saturation, however, he has exhibited clinical improvement following administration of steroids and an hour-long neb. 1) SOB - clinically this is most likely related to COPD - placed on Steroids, nebs, Abx, 02 - BiPAP on admission. 2) CHF - per imaging there is some volume overload. Volume status is difficult to assess clinically due to habitus. He did not take any Lasix this AM so we will give him 80mg IV. Will cont daily Lasix, Aldactone, ARB, Metoprolol 3) AF - rate is paced - cont Metoprolol, Xarelto. 4) CAD - no evidence of ACS - cont ASA, Zocor, B gonsalo 5) CKD - creat is at baseline 6) Anemia - Hb at baseline. Full code - Xarelto prophylaxis Total time for this admit including review of labs, meds, imaging, EKG, extensive records - discussion with pt, , ER attending - 45 min Resuscitation Status VTE Prophylaxis Will order VTE Prophylaxis: Yes
[2017-06-18] MEDS ORDERED: HEPARIN SOD 5000 UNIT/0.5 ML CARP SQ SCH (16:45)
[2017-06-18] MEDS ORDERED: LEVOFLOXACIN / D5W 500 MG in PREMIXED IN D5W 100 ML IV SCH (17:00)
[2017-06-18] MEDS: RIVAROXABAN TAB 15 MG TAB PO SCH (17:19)
[2017-06-18] MEDS: METHYLPREDNISOLONE IV 60 MG in SYRINGE 0 ML IV SCH ×2 (17:20→23:05)
[2017-06-18] MEDS: SPIRONOLACTONE 25 MG TAB PO SCH (17:20)
[2017-06-18] MEDS: POTASSIUM CHLORIDE 10 MEQ TABCR PO SCH ×2 (17:20→20:05)
[2017-06-18 18:58] VITALS: PULSE 70; O2SAT 95
[2017-06-18] MEDS: ALBUT/IPRATROP 3MG/0.5MG NEB 3 ML VIAL INH SCH (18:58)
[2017-06-18 20:00] VITALS: BP 112/80; PULSE 70; TEMP 36.5; O2SAT 91
[2017-06-18] MEDS: LATANOPROST 0.005% OP SOLN 2.5 ML BTL OPL SCH (20:05)
[2017-06-18] MEDS: METOPROLOL TARTRATE 25 MG TAB PO SCH (20:07)
[2017-06-18] MEDS: ALLOPURINOL 300 MG TAB PO SCH (20:07)
[2017-06-18] MEDS: PANTOprazole SOD 40 MG TAB PO SCH (20:07)
[2017-06-18] MEDS: SIMVASTATIN 10 MG TAB PO SCH (20:08)
[2017-06-19] VITALS (10 sets, daily range): BP systolic 105–135; BP diastolic 62–85; PULSE 70–77; TEMP 36.6–37.1; O2SAT 90–98
[2017-06-19] MEDS: ALBUT/IPRATROP 3MG/0.5MG NEB 3 ML VIAL INH SCH ×4 (03:00→19:11)
[2017-06-19] MEDS: METHYLPREDNISOLONE IV 60 MG in SYRINGE 0 ML IV SCH ×2 (05:03→17:03)
[2017-06-19] MEDS: FUROSEMIDE 80 MG TAB PO SCH ×2 (06:34→13:05)
[2017-06-19 08:11] LABS: CALCIUM 9.4 mg/dl (8.5-10.1); CREATININE 1.73 mg/dl (0.60-1.40); POTASSIUM 4.8 mmol/L (3.5-5.1)
[2017-06-19] MEDS: PANTOprazole SOD 40 MG TAB PO SCH ×2 (08:19→21:35)
[2017-06-19] MEDS: ASPIRIN 81 MG ECTAB PO SCH (08:19)
[2017-06-19] MEDS: METOPROLOL TARTRATE 25 MG TAB PO SCH ×2 (08:19→21:35)
[2017-06-19] MEDS: SPIRONOLACTONE 25 MG TAB PO SCH ×2 (08:19→17:03)
[2017-06-19] MEDS: MAGNESIUM OXIDE 400 MG TAB PO SCH (08:20)
[2017-06-19] MEDS: FERROUS SULFATE 325 MG TAB PO SCH (08:20)
[2017-06-19] MEDS: POTASSIUM CHLORIDE 10 MEQ TABCR PO SCH ×3 (08:20→21:34)
[2017-06-19 08:48] LABS: HEMATOCRIT 35.8 % (42-52); HEMOGLOBIN 11.9 g/dL (14.0-18.0); MEAN CELL VOLUME 82.3 fL (80-100); MEAN CORPUSCULAR HEMOGLOBIN 27.4 pg (25-34); MEAN CORPUSCULAR HGB CONC 33.2 g/dl (32-36); MEAN PLATELET VOLUME 10.6 fL (7.4-10.4); PLATELET COUNT 213 K/uL (130-400); RED CELL DISTRIBUTION WIDTH CV 15.5 % (11.5-14.5); RED CELL DISTRIBUTION WIDTH SD 46.7 fL (36.4-46.3); WHITE BLOOD COUNT 5.01 K/uL (4.8-10.8)
[2017-06-19] MEDS ORDERED: LOSARTAN/HCTZ 50-12.5 EA TAB PO SCH (09:00)
--- NOTE | 2017-06-19 10:16 | Clinical Documentation Query ---
CLINICAL DOCUMENTATION QUERY 77 year old male who presents to the Emergency Room with complaints of constant SOB Query #1/3 In your clinical opinion is this patient being managed for: ( ) Acute on chronic diastolic CHF (HFpEF) treated with IV Lasix. ( ) Not Agree ( ) Other explanation of clinical findings (No explanation is considered a No Response) ( ) Unable to determine ( ) Need to Discuss (Phone CDS or qliq) (No discussion is considered a No Response) The medical record reflects the following clinical findings, treatment, and risk factors. Clinical Indicators: SOB, missed Lasix dose, accessory muscle use, mild-moderate respiratory distress noted, increased respiratory rate, wheezing bilaterally, tachypnea 27. Treatment: O2, BiPAP, IV Lasix, Nebs, IV Solumedrol Risk Factors: Age, chronic diastolic CHF, missed Lasix dose, Query #2/3 In your clinical opinion is this patient being managed for: ( ) Acute respiratory failure in setting of COPD and diastolic CHF exacerbations ( ) Not Agree ( ) Other explanation of clinical findings (No explanation is considered a No Response) ( ) Unable to determine ( ) Need to Discuss (Phone CDS or qliq) (No discussion is considered a No Response) The medical record reflects the following clinical findings, treatment, and risk factors. Clinical Indicators: SOB, missed Lasix dose, accessory muscle use, mild-moderate respiratory distress noted, increased respiratory rate, wheezing bilaterally, tachypnea 27. Treatment: O2, BiPAP, IV Lasix, Nebs, IV Solumedrol Risk Factors: Age, chronic diastolic CHF, missed Lasix dose, Query #3/3 In your clinical opinion is this patient being managed for: ( ) COPD exacerbation ( ) Not Agree ( ) Other explanation of clinical findings (No explanation is considered a No Response) ( ) Unable to determine ( ) Need to Discuss (Phone CDS or qliq) (No discussion is considered a No Response) The medical record reflects the following clinical findings, treatment, and risk factors. Clinical Indicators: SOB, missed Lasix dose, accessory muscle use, mild-moderate respiratory distress noted, increased respiratory rate, wheezing bilaterally, tachypnea 27. Treatment: O2, BiPAP, IV Lasix, Nebs, IV Solumedrol Risk Factors: Age, chronic diastolic CHF, missed Lasix dose, COPD Please clarify and document your clinical opinion in the progress notes and discharge summary. Terms such as "probable", "suspected", "likely", "questionable", "possible", or "still to be ruled out" are acceptable. IF IN AGREEMENT, YOU MUST DOCUMENT ABOVE DIAGNOSTIC STATEMENT IN DAILY PROGRESS NOTES AND DISCHARGE SUMMARY. This document is not part of the patient's record. Thank You, Anthony Ospina, RN [phone] & via [email or web address]
[2017-06-19] MEDS ORDERED: LEVOFLOXACIN CONSULT ACTIVE PRN (11:00)
--- NOTE | 2017-06-19 11:25 | Hospitalist Progress Note ---
Hospitalist Progress Note Date of Service June 19, 2017. (Cecelia Lanier ., PA-C) Subjective Pt evaluation today including: conversation w/ patient, conversation w/ family ( at bedside), physical exam, chart review, lab review, review of inpatient medication list Pain: None PO Intake: Tolerating PO diet Voiding: no voiding problems Patient reports feeling well. He states his breathing is much improved but still complains of some shortness of breath. He is currently on room air. He does report a productive cough with yellow sputum and wheezing. He reports he is still having good urinary output. The patient denies fevers, chills, sweats , chest pain, palpitations, claudication, nausea, vomiting, abdominal pain, dysuria, hematuria, urinary retention, paralysis, weakness, numbness and tingling. Additional Comments: See HPI for pertinent positives and negatives. All other systems reviewed and negative. (Cecelia Lanier ., PA-C) Objective Vital Signs Date Time Temp Pulse Resp B/P (MAP) Pulse Ox O2 Delivery O2 Flow Rate FiO2 06/19/17 08:00 Nasal Cannula 2.0 06/19/17 07:11 70 18 97 Room Air 06/19/17 06:39 36.7 70 20 135/85 (102) 95 06/19/17 04:00 Nasal Cannula 2.0 06/19/17 03:47 37.1 70 20 133/71 (91) 97 2.0 06/19/17 00:11 36.8 70 18 125/71 (89) 95 2.0 06/18/17 23:59 Nasal Cannula 2.0 06/18/17 20:00 36.5 70 18 112/80 (91) 91 Nasal Cannula 2.0 06/18/17 20:00 Nasal Cannula 2.0 06/18/17 18:58 70 18 95 Nasal Cannula 2.0 06/18/17 14:41 70 17 149/87 97 06/18/17 14:38 70 17 97 06/18/17 14:31 149/87 06/18/17 14:08 70 18 97 06/18/17 14:01 143/72 06/18/17 14:00 96 BiPAP 2.0 28 06/18/17 13:38 70 19 96 06/18/17 13:33 70 23 96 BiPAP 06/18/17 13:31 145/82 5/13/18 13:18 70 18 97 BiPAP 06/18/17 13:03 71 17 95 BiPAP 06/18/17 13:01 143/70 06/18/17 12:48 70 21 98 BiPAP 06/18/17 12:43 70 24 99 BiPAP 06/18/17 12:30 157/75 06/18/17 12:28 70 17 98 BiPAP 06/18/17 12:17 70 20 100 BiPAP/CPAP 28 06/18/17 12:17 70 100 28 06/18/17 12:13 70 18 100 BiPAP 06/18/17 11:58 70 21 99 BiPAP 06/18/17 11:53 70 18 100 BiPAP 06/18/17 11:52 142/70 06/18/17 11:38 70 19 96 Nasal Cannula 2.0 06/18/17 11:23 70 27 98 Nasal Cannula 2.0 (Cecelia Lanier ., PA-C) Physical Exam Notes: General appearance: +Obese. Well-developed, well-nourished, no apparent distress Head: Normocephalic, atraumatic Eyes: Normal inspection, PERRL, EOMI ENT: Normal ENT inspection, hearing grossly normal, pharynx normal Neck: Supple, no JVD, trachea midline Respiratory/Chest: +Diffuse expiratory wheezing. Decreased breath sounds in bases. No respiratory distress Cardiovascular: Regular rate & rhythm, no gallop, no murmur Abdomen/GI: Normal bowel sounds, non-tender, soft Extremities/Musculoskeletal: +Trace pitting edema. Normal inspection, no calf tenderness Neurological/Psych: Alert, normal mood/affect, oriented x 3 Skin: Normal color, warm/dry, no rash (Cecelia Lanier ., PA-C) Laboratory Results Last 24 Hours Test 06/18/17 11:29 06/18/17 11:31 06/18/17 12:10 06/19/17 07:39 Bedside Lactic Acid Venous 1.22 mmol/L Influenza Type A (RT-PCR) Neg for Influ A Influenza Type B (RT-PCR) Neg for Influ B White Blood Count 4.78 K/uL Red Blood Count 4.06 M/uL Hemoglobin 11.1 g/dL Hematocrit 34.3 % Mean Corpuscular Volume 84.5 fL Mean Corpuscular Hemoglobin 27.3 pg Mean Corpuscular Hemoglobin Concent 32.4 g/dl Platelet Count 214 K/uL Mean Platelet Volume 10.4 fL Neutrophils (%) (Auto) 78.6 % Lymphocytes (%) (Auto) 13.8 % Monocytes (%) (Auto) 5.9 % Eosinophils (%) (Auto) 1.3 % Basophils (%) (Auto) 0.2 % Neutrophils # (Auto) 3.76 K/uL Lymphocytes # (Auto) 0.66 K/uL Monocytes # (Auto) 0.28 K/uL Eosinophils # (Auto) 0.06 K/uL Basophils # (Auto) 0.01 K/uL RDW Standard Deviation 48.2 fL RDW Coefficient of Variation 15.6 % Immature Granulocyte % (Auto) 0.2 % Immature Granulocyte # (Auto) 0.01 K/uL Prothrombin Time 11.7 SECONDS Prothromb Time International Ratio 1.1 Activated Partial Thromboplast Time 31.7 SECONDS Partial Thromboplastin Ratio 1.2 Sodium Level 135 mmol/L 134 mmol/L Potassium Level 5.0 mmol/L 4.8 mmol/L Chloride Level 104 mmol/L 101 mmol/L Carbon Dioxide Level 25 mmol/L 25 mmol/L Anion Gap 6.0 mmol/L 8.0 mmol/L Blood Urea Nitrogen 30 mg/dl 39 mg/dl Creatinine 1.49 mg/dl 1.73 mg/dl Est Creatinine Clear Calc Drug Dose 47.0 ml/min 40.4 ml/min Estimated GFR () 51.0 42.6 Estimated GFR (Non- 44.0 36.7 BUN/Creatinine Ratio 20.0 22.8 Random Glucose 105 mg/dl 148 mg/dl Calcium Level 8.8 mg/dl 9.4 mg/dl Magnesium Level 2.3 mg/dl 2.3 mg/dl Total Bilirubin 0.3 mg/dl Aspartate Amino Transf (AST/SGOT) 18 U/L Alanine Aminotransferase (ALT/SGPT) 23 U/L Alkaline Phosphatase 111 U/L Troponin I < 0.015 ng/ml Pro-B-Type Natriuretic Peptide 2995 pg/ml Total Protein 7.2 gm/dl Albumin 3.2 gm/dl Globulin 4.0 gm/dl Albumin/Globulin Ratio 0.8 Test 06/19/17 07:44 White Blood Count 5.01 K/uL Red Blood Count 4.35 M/uL Hemoglobin 11.9 g/dL Hematocrit 35.8 % Mean Corpuscular Volume 82.3 fL Mean Corpuscular Hemoglobin 27.4 pg Mean Corpuscular Hemoglobin Concent 33.2 g/dl RDW Standard Deviation 46.7 fL RDW Coefficient of Variation 15.5 % Platelet Count 213 K/uL Mean Platelet Volume 10.6 fL (Cecelia Lanier ., KAMILAH-Erika) Assessment and Plan 77 y/o male with a history of a-fib, HTN, HLD, CAD, chronic diastolic CHF, COPD , CKD III, gout,and BPH who presents with progressive SOB and diaphoresis w/ exertion. Pt initially presented to urgent care but was then directed to the ER due to hypoxia and respiratory distress. Pt requiring BiPAP on admission. Acute respiratory failure secondary to COPD exacerbation--improving -Admit to telemetry. No acute events overnight. Pt in paced rhythm with HR 70s. -Continue Levaquin 250 mg IV qd, day #2 -Decrease Solu-Medrol to 60 mg IV q12h -Alexys QIDR -O2 by protocol, currently on room air -Resume Advair BID Acute on chronic diastolic CHF--improving -Also contributing to acute respiratory failure -Given Lasix IV yesterday w/good diuresis -UO 3350 cc, net balance -2100 on 06/18 -Continue Lasix 80 mg PO BID -Continue to monitor I's & O's, daily weights -Continue spironolactone 25 mg PO BID, Lopressor 25 mg PO BID, KCl 20 mEq PO TID -Hold losartan for now due to slight elevation in creatinine Acute kidney injury on CKD stage III -Baseline creatinine around 1.6 -Creatinine mildly elevated above baseline at 1.73 -Still with good urinary output and peripheral edema. Will continue Lasix for now but hold HCTZ/losartan A-fib--stable, pt is paced -Continue Lopressor as above, Xarelto CAD, HTN, HLD--stable -HCTZ/losartan on hold as above -Continue Lopressor as above, Zocor 10 mg PO qd, ASA Gout -Continue allopurinol 150 mg PO hs BPH -Continue Hytrin 5 mg PO qd Allergies--pt reports ongoing allergies -Continue Flonase -Start Singulair 10 mg PO hs DVT prophylaxis -Beatriz Code Status -Level I, FULL RESUSCITATION STATUS (Cecelia Lanier ., PA-C) Attending Attestation - Pt seen/examined, chart reviewed, care plan d/w KAMILAH Lanier. I agree w/ the lin components of her documentation. Pt feeling "much better" - in fact feels like he could go home today. Less cough, less sputum production, less dyspnea. Tele stable overnight. Pt c/o allergies/sinus congestion "for months" unresponsive to flonax & zyrtec. VSS afebrile gen - nad neck - no jvd heart - RRR lungs - mild end-exp wheeze, minimal bibasilar rales abd - soft, obese ext - right leg is larger than the left leg (chronic per patient); pulses 2+ b/l ; <1+ edema b/l A/P: 1. acute hypoxic resp failure - resolved. 2. COPD w/ exacerbation - improved, wean steroids. 3. ?allergies - add singulair. 4. acute/chronic diastolic CHF - appears euvolemic; d/c IV lasix. 5. CKD 3 with mild acute kidney injury, likely from diuresis - stop IV lasix. home tomorrow? Uziel RAINEY MD (Ken Rainey MD)
[2017-06-19] MEDS ORDERED: LEVOFLOXACIN 250MG / D5W IV SCH (16:00)
[2017-06-19] MEDS: RIVAROXABAN TAB 15 MG TAB PO SCH (17:03)
[2017-06-19] MEDS ORDERED: MONTELUKAST SOD 10 MG TAB PO SCH (21:00)
[2017-06-19] MEDS: FLUTICASONE/SALMETEROL 250/50 (ADVAIR) 14 PUFF/1 INHALER INH SCH (21:33)
[2017-06-19] MEDS: LATANOPROST 0.005% OP SOLN 2.5 ML BTL OPL SCH (21:34)
[2017-06-19] MEDS: SIMVASTATIN 10 MG TAB PO SCH (21:34)
[2017-06-19] MEDS: ALLOPURINOL 300 MG TAB PO SCH (21:35)
[2017-06-20] MEDS: ALBUT/IPRATROP 3MG/0.5MG NEB 3 ML VIAL INH SCH ×2 (03:00→07:24)
[2017-06-20 03:19] VITALS: BP 139/69; PULSE 70; TEMP 36.5; O2SAT 94
[2017-06-20] MEDS: METHYLPREDNISOLONE IV 60 MG in SYRINGE 0 ML IV SCH (05:34)
[2017-06-20 06:34] LABS: HEMOGLOBIN 11.3 g/dL (14.0-18.0); MEAN CELL VOLUME 81.9 fL (80-100); MEAN CORPUSCULAR HEMOGLOBIN 27.2 pg (25-34); MEAN CORPUSCULAR HGB CONC 33.2 g/dl (32-36); MEAN PLATELET VOLUME 10.3 fL (7.4-10.4); PLATELET COUNT 229 K/uL (130-400); RED CELL DISTRIBUTION WIDTH CV 15.4 % (11.5-14.5); RED CELL DISTRIBUTION WIDTH SD 46.2 fL (36.4-46.3); WHITE BLOOD COUNT 8.12 K/uL (4.8-10.8)
[2017-06-20 06:45] VITALS: BP 118/79; PULSE 70; TEMP 36.5; O2SAT 94
[2017-06-20 06:48] LABS: CALCIUM 8.9 mg/dl (8.5-10.1); CREATININE 2.23 mg/dl (0.60-1.40); POTASSIUM 4.4 mmol/L (3.5-5.1)
[2017-06-20 07:24] VITALS: PULSE 70; O2SAT 98
[2017-06-20] MEDS: PANTOprazole SOD 40 MG TAB PO SCH (07:45)
[2017-06-20] MEDS: FLUTICASONE/SALMETEROL 250/50 (ADVAIR) 14 PUFF/1 INHALER INH SCH (07:45)
[2017-06-20] MEDS: FERROUS SULFATE 325 MG TAB PO SCH (07:46)
[2017-06-20] MEDS: POTASSIUM CHLORIDE 10 MEQ TABCR PO SCH (07:46)
[2017-06-20] MEDS: METOPROLOL TARTRATE 25 MG TAB PO SCH (07:46)
[2017-06-20] MEDS: MAGNESIUM OXIDE 400 MG TAB PO SCH (07:46)
[2017-06-20] MEDS: SPIRONOLACTONE 25 MG TAB PO SCH (07:47)
[2017-06-20] MEDS: ASPIRIN 81 MG ECTAB PO SCH (07:47)
[2017-06-20] MEDS ORDERED: FLUTICASONE PROPIONATE NA SPR 16 GM BTL SCH (09:00)
[2017-06-20] MEDS ORDERED: CZR50 PO (11:37)
--- NOTE | 2017-06-20 11:44 | Discharge Instructions ---
Discharge Instructions Date of Service June 20, 2017. Admission Reason for Admission: Copd Exacerbation Discharge Discharge Diagnosis / Problem: Chronic obstructive pulmonary disease exacerbation Discharge Goals Goal(s): Decrease discomfort, Improve function, Diagnostic testing, Therapeutic intervention Activity Recommendations Activity Limitations: resume your previous activity . Instructions / Follow-Up Instructions / Follow-Up You were admitted to the hospital with acute respiratory distress due to an acute exacerbation of your chronic obstructive pulmonary disease (COPD). You were initially placed on BiPAP, then supplemental oxygen. You were treated with IV steroids, antibiotics, and nebulizer treatments. Your breathing is now back to baseline without any supplemental oxygen. You are now medically stable for discharge. Medications: *Please take Levaquin (levofloxacin) 250 mg by mouth daily for 5 more days. This is an antibiotic to treat possible acute bacterial bronchitis. Please take the first dose TODAY. *Please take the following prednisone taper. This is an oral steroid to reduce inflammation and help your breathing. Please start the prednisone TOMORROW. -Take 60 mg (3 tablets) by mouth daily for 2 days, then -Take 40 mg (2 tablets) by mouth daily for 2 days, then -Take 20 mg (1 tablet) by mouth daily for 2 days, then stop. *Please continue to take your DuoNeb (ipratropium/albuterol) nebulizer treatment at home. Please take this four times a day, or every 4 hours while awake, until you follow up with your primary care provider. You can then back down to your regular twice a day dosing. *You developed acute kidney injury while in the hospital. Please do NOT take your Lasix (furosemide) TODAY AND TOMORROW to allow your kidneys to recover. You can then restart the Lasix on . *Please do NOT take losartan until you follow up with your primary care provider on Monday. *Please take Singulair (montelukast) 10 mg at bedtime. This is to help your allergies. *Continue your other home medications as prescribed. Follow up: *You have been provided a script to have blood work done to check on your kidneys. Please have this blood work done on MONDAY morning, so that the results will be ready for your appointment with your primary care provider. *You have been scheduled to follow up with your primary care provider on MONDAY , 06/23. Your primary care provider can then determine if you can restart your losartan. Please seek medical attention if you experience fevers, chills, sweats, dizziness/lightheadedness, loss of consciousness, chest pain, shortness of breath, nausea, vomiting, numbness or tingling. Current Hospital Diet Patient's current hospital diet: AHA Diet (Heart Healthy) Discharge Diet Recommended Diet: AHA Diet (Heart Healthy), Low Sodium Diet (2gm Na) Pending Studies Studies pending at discharge: no Medical Emergencies . Who to Call and When: Medical Emergencies: If at any time you feel your situation is an emergency, please call 911 immediately. . Non-Emergent Contact Non-Emergency issues call your: Primary Care Provider Call Non-Emergent contact if: you have a fever, you have any medication questions . Past History Medical & Surgical History: (1) COPD exacerbation . "Provider Documentation" section prepared by Cecelia Lanier. .
[2017-06-20] MEDS ORDERED: LEVO-17 PO (11:49)
[2017-06-20] MEDS ORDERED: MONT1TAB3 PO (11:49)
[2017-06-20] MEDS ORDERED: PRED20TA PO (11:49)
[2017-06-20 12:38] VITALS: BP 118/79; PULSE 70; TEMP 36.5; O2SAT 98
--- NOTE | 2017-06-20 15:44 | Discharge Summary ---
Discharge Summary Date of Service June 20, 2017. Discharge Summary Admission Date: June 18, 2017 at 13:42 Discharge Date: June 20, 2017 Discharge Disposition: Home Principal Diagnosis: acute respiratory distress 2nd to COPD exacerbation Problems/Secondary Diagnoses: A-fib, HTN, HLD, CAD, acute/chronic diastolic CHF, COPD, CKD III, gout, BPH, acute kidney injury 2nd to overdiuresis, suspected allergic rhinitis, morbid obesity with BMI 37 Immunizations: Have You Had Influenza Vaccine: Yes History of Tetanus Vaccine?: No History of Pneumococcal: No History of Hepatitis B Vaccine: No Procedures: chest x-ray Medication Reconciliation New Medications: Levofloxacin (Levaquin) 250 Mg Tab 250 MG PO DAILY for 5 Days, #5 TAB Montelukast Sodium (Singulair) 10 Mg Tab 1 TAB PO HS for 30 Days, #30 TAB Prednisone (Prednisone) 20 Mg Tab 1 TAB PO UD for 6 Days, #12 TAB Take 3 tablets daily for 2 days, then 2 tablets daily for 2 days, then 1 tablet daily for 2 days, then stop Continued Medications: Albuterol Sulf (Proventil 0.083% 2.5MG/3ML) 2.5 Mg/3 Ml Nebu 2.5 MG INH BID PRN for Shortness of Breath, EA Allopurinol (Zyloprim) 300 Mg Tab 150 MG PO HS, TAB Aspirin (Aspirin Ec) 81 Mg Tab 81 MG PO QAM PT WILL CHECK WITH SURGEON Fish Oil ([place]-3) 1 Ea Cap 1 CAP PO QAM Fluticasone Propionate (Nasal) (Allergy Nasal [place] 24 Ho) 50 Mcg/Act Spr 2 SPRAY NA QAM Furosemide (Lasix) 40 Mg Tab 2 TAB PO AM/NOON, TAB Ipratropium-Albuterol (Duoneb) 3 Ml Nebu 1 TREATMENT INH Q4H, INHA Latanoprost (Xalatan 0.005% Oph Fannie) 0.005 % Fannie 1 DROPS OPL HS, #7.5 ML 3 Refills Losartan Potassium (Losartan Potassium) 50 Mg Tab 50 MG PO DAILY Magnesium Oxide (Magnesium) 250 Mg Tab 250 MG PO QAM Metoprolol Tartrate (Lopressor) (Lopressor) 50 Mg Tab 25 MG PO BID Omeprazole (Prilosec) 20 Mg Capcr 20 MG PO BID, CAP Potassium Chloride (Micro-K Ext Rel) 10 Meq Capcr 20 MG PO TID breakfast,lunch & dinner Rivaroxaban (Xarelto) 15 Mg Tab 15 MG PO QDD for 30 Days, #30 TAB Sennosides-Docusate Sodium (Senokot S) 1 Tab Tab 1 TAB PO QDL PRN for Consult, TAB Simvastatin (Zocor) 10 Mg Tab 10 MG PO QPM, TAB Spironolactone (Aldactone) 25 Mg Tab 25 MG PO BID, TAB Terazosin (Hytrin) 5 Mg Cap 5 MG PO QPM, CAP [Iron Tab] () 65 MG PO QAM Discharge Exam The patient reports feeling well. He denies any shortness of breath and states he is at baseline. He denies any coughing today. He had some wheezing after walking to the bathroom but otherwise denies wheezing at rest. The patient denies fevers, chills, sweats, chest pain, palpitations, claudication, cough, shortness of breath, nausea, vomiting, abdominal pain, dysuria, hematuria, urinary retention, paralysis, weakness, numbness and tingling. Constitutional: No fever, No chills, No sweats Eyes: No worsening of vision, No eye pain, No diplopia ENT: No hearing loss, No nasal symptoms, No trouble swallowing Respiratory: +Wheezing with exertion. No cough, No shortness of breath Cardiovascular: No chest pain, No claudication, No palpitations Abdomen: No pain, No nausea, No vomiting Musculoskeletal: No joint pain, No muscle pain, No swelling Genitourinary - Male: No dysuria, No urinary retention, No hematuria Neurologic: No paralysis, No weakness, No numbness/tingling Integumentary: No rash, No itch, No color change General appearance: +Obese. Well-developed, well-nourished, no apparent distress Head: Normocephalic, atraumatic Eyes: Normal inspection, PERRL, EOMI ENT: Normal ENT inspection, hearing grossly normal, pharynx normal Neck: Supple, no JVD, trachea midline Respiratory/Chest: +Decreased breath sounds in bases. Lungs clear to auscultation, no respiratory distress Cardiovascular: Regular rate & rhythm, no gallop, no murmur Abdomen/GI: Normal bowel sounds, non-tender, soft Extremities/Musculoskeletal: Normal inspection, no calf tenderness, no pedal edema Neurological/Psych: Alert, normal mood/affect, oriented x 3 Skin: Normal color, warm/dry, no rash Hospital Course 77 y/o male with a history of a-fib, HTN, HLD, CAD, chronic diastolic CHF, COPD , CKD III, gout,and BPH who presents with progressive SOB and diaphoresis w/ exertion. Pt initially presented to urgent care but was then directed to the ER due to respiratory distress. Pt requiring BiPAP on admission. Acute respiratory distress secondary to COPD exacerbation (+/-acute/chronic diastolic CHF)--resolved -Admitted to telemetry. Pt had paced rhythm with HR 70s. -Continue Levaquin 250 mg IV qd, completed 2 days inpt, continue outpt for total 7 day course -Decrease Solu-Medrol to 60 mg IV q12h. D/c on prednisone taper: 60 mg x 2 days, 40 mg x 2 days, 20 mg x 2 days -DuoNebs QIDR -O2 by protocol, currently on room air Acute on chronic diastolic CHF--resolved -Also contributing to acute respiratory failure -Given Lasix IV yesterday w/good diuresis -Net balance -2.5L this admission -Monitor I's & O's, daily weights -Creatinine elevated on discharge, hold Lasix on 06/20 and 06/21, resume 06/22 -Continue spironolactone 25 mg PO BID, Lopressor 25 mg PO BID, KCl 20 mEq PO TID Acute kidney injury on CKD stage III -Baseline creatinine around 1.6 -Creatinine 2.23 on 06/20, up from 1.73 -Hold Lasix as above, resume 06/22 -Hold losartan until PCP f/u on 06/23 -Given script to recheck BMP on 06/22, results forwarded to PCP A-fib--stable, pt is paced -Continue Lopressor as above, Xarelto CAD, HTN, HLD--stable -Losartan on hold as above -Continue Lopressor as above, Zocor 10 mg PO qd, ASA Gout -Continue allopurinol 150 mg PO hs BPH -Continue Hytrin 5 mg PO qd Allergies--pt reports ongoing allergies -Continue Flonase -Continue Singulair 10 mg PO hs at discharge DVT prophylaxis -Beatriz Code Status -Level I, FULL RESUSCITATION STATUS Attending Attestation & Discharge Note: Pt seen/examined, chart reviewed, discharge care plan d/w KAMILAH Lanier. I agree w/ the lin components of her discharge documentation. 77yo male with COPD, chronic diastolic CHF, CKD stage 3, a. fib, morbid obesity w/ BMI 37, and CAD who presented with acute respiratory distress. He was initially seen at local urgent care and transferred to [facility] via EMS for ongoing care. While in the ER he was placed on BIPAP, 1-hour long duoneb, and was given steroids. After these measures his symptoms improved and he was ultimately transitioned to NC O2. In addition to COPD exacerbation he was felt to have decompensated diastolic CHF and was administered lasix. He made rapid improvement over 48 hours, O2 was weaned off, and steroids were transitioned to oral prednisone. His stay was complicated by acute kidney injury, likely due to overdiuresis with IV lasix. Discharge weight was 104kg, and O2 sats with walking on day of discharge were in the mid 90s in room air. He was asked to hold his losartan until being seen in the office, asked to hold his lasix until the AM of 06/22/17, and advised to undergo repeat BMP on 06/22/17 to ensure the stability of his creatinine. He will complete a prednisone taper after d/c for his COPD exacerbation along w/ short course of levaquin. Discharge exam: gen - NAD, obese neck - no JVD mouth - MMM heart - RRR, s1, s2 lungs - mild rales right base, minimal rales left base (rales were all "dry"), good airation, no wheeze abd - soft, NT ext - 1-2+ edema on right (chronic amount of edema per the patient), and <1+ on left (also chronic per the patient) Ken Dillon MD Total Time Spent: Greater than 30 minutes This includes examination of the patient, discharge planning, medication reconciliation, and communication with other providers. Discharge Instructions Please refer to the electronic Patient Visit Report (Discharge Instructions) for additional information. Follow-Up Cadence Jones PA-C on MondayJune 23 at 4:00 pm repeat BMP on June Additional Copies To Ken Worthington M.D.; Cadence Jones, PA
== END 2017-06-20 13:09 | disposition home or self-care (01) | DRG 291 ==
LOC: EDBD 11:08 → C.EDC 11:09 → C.2E 13:42 → ENRESERV 14:10
PROVIDERS: ADMIT Internal Medicine; ATTEND Internal Medicine
DX: I13.0 Hypertensive heart and chronic kidney disease with heart failure and stage 1 through stage 4 chronic kidney disease, or unspecified chronic kidney disease (principal); I50.33 Acute on chronic diastolic (congestive) heart failure; J96.00 Acute respiratory failure, unspecified whether with hypoxia or hypercapnia; J44.1 Chronic obstructive pulmonary disease with (acute) exacerbation; N17.9 Acute kidney failure, unspecified; I48.91 Unspecified atrial fibrillation; E78.5 Hyperlipidemia, unspecified; I25.10 Atherosclerotic heart disease of native coronary artery without angina pectoris; N18.3 Chronic kidney disease, stage 3 (moderate); M10.9 Gout, unspecified; N40.0 Benign prostatic hyperplasia without lower urinary tract symptoms; Z82.49 Family history of ischemic heart disease and other diseases of the circulatory system; Z87.891 Personal history of nicotine dependence; Z79.82 Long term (current) use of aspirin

== ENCOUNTER → 2017-06-22 | Outpatient (CLI) | payer OTHER ==
[~2017-06-22] MED LIST changes: -ADVIN25/60 INH; +CZR50 PO; -HYZ/10015 PO; +LEVO-17 PO; +MONT1TAB3 PO; +PRED20TA PO
[2017-06-22 10:33] LABS: BLOOD UREA NITROGEN 59 mg/dl (7-18); CALCIUM 9.1 mg/dl (8.5-10.1); CARBON DIOXIDE 30 mmol/L (21-32); CREATININE 1.54 mg/dl (0.60-1.40); GLUCOSE 88 mg/dl (70-99); POTASSIUM 4.6 mmol/L (3.5-5.1); SODIUM 140 mmol/L (136-145)
== END | disposition home or self-care (01) ==
LOC: C.LAB1850 09:00
PROVIDERS: ATTEND Physician Assistant
DX: N17.9 Acute kidney failure, unspecified (principal)

== ENCOUNTER → 2017-06-27 | Outpatient (CLI) | payer OTHER ==
[~2017-06-27] VITALS: Ht 170.2 cm; Wt 105.6 kg
[~2017-06-27] MED LIST changes: -LEVO-17 PO
[2017-06-27 12:48] VITALS: BP 92/56; PULSE 71; Ht 170.2 cm; Wt 105.6 kg
== END | disposition home or self-care (01) ==
LOC: C.NEUR 11:57
PROVIDERS: ATTEND Physician Assistant Medical
DX: G47.33 Obstructive sleep apnea (adult) (pediatric) (principal); G47.34 Idiopathic sleep related nonobstructive alveolar hypoventilation; J44.9 Chronic obstructive pulmonary disease, unspecified; I48.91 Unspecified atrial fibrillation

== ENCOUNTER → 2017-09-21 | Outpatient (CLI) | payer OTHER ==
[~2017-09-21] MED LIST changes: +IPRA-64 INH; -IPRASOL4 INH; -PRED20TA PO
[2017-09-21 10:23] LABS: BASO % 0.3 %; BASO ABS # 0.02 K/uL (0-0.2); EOS % 2.3 %; EOS ABS # 0.18 K/uL (0-0.5); HEMOGLOBIN 12.2 g/dL (14.0-18.0); IG# 0.01 K/uL (0.00-0.02); LYMPH % 12.7 %; MEAN CORPUSCULAR HEMOGLOBIN 28.2 pg (25-34); MEAN CORPUSCULAR HGB CONC 32.1 g/dl (32-36); MEAN PLATELET VOLUME 11.1 fL (7.4-10.4); MONO % 9.4 %; MONO ABS # 0.74 K/uL (0.11-0.59); NEUT % 75.2 %; NEUT ABS # 5.93 K/uL (1.4-6.5); PLATELET COUNT 228 K/uL (130-400); RED CELL DISTRIBUTION WIDTH CV 15.7 % (11.5-14.5); RED CELL DISTRIBUTION WIDTH SD 49.7 fL (36.4-46.3); WHITE BLOOD COUNT 7.88 K/uL (4.8-10.8)
[2017-09-21 10:34] LABS: BLOOD UREA NITROGEN 33 mg/dl (7-18); CALCIUM 9.4 mg/dl (8.5-10.1); CARBON DIOXIDE 31 mmol/L (21-32); CREATININE 1.87 mg/dl (0.60-1.40); GLUCOSE 104 mg/dl (70-99); POTASSIUM 3.2 mmol/L (3.5-5.1); SODIUM 135 mmol/L (136-145)
== END | disposition home or self-care (01) ==
LOC: C.LAB1850 09:15
PROVIDERS: ATTEND Physician Assistant
DX: N18.9 Chronic kidney disease, unspecified (principal)

== ENCOUNTER 2019-11-26 12:31 | Inpatient (IN) ==
--- NOTE | 2019-11-26 13:13 | Emergency Department Note ---
History of Present Illness General Chief complaint: Shortness of Breath/Dyspnea Stated complaint: COPD,FILLING UP WITH FLUID,SOB Time Seen by Provider: 11/26/19 12:54 Source: patient Mode of arrival: ambulatory Limitations: no limitations History of Present Illness Provider complaint: Shortness of breath, edema Onset (ago): week(s) Severity: similar to prior episodes Current Pain Intensity: 0 Quality: + constant Relieved By: + none Exacerbated By: + movement and + other (Supine position) Associated symptoms: + cough and + shortness of breath; no chest pain, no fe eduin/chills, no nausea/vomiting and no weakness Treatments prior to arrival: none This is an 79-year-old male presents the emergency department after being 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 Jordan Parson. Patient states they have been changing his medications to try and help keep fluid off him but he continues to fill up with fluid in his legs and his abdomen. Patient states he is unable to lay flat and sleeps propped up on about 2 pillows. Patient states the shortness of breath is worse with exertion. Patient states he also has COPD and feels some of the shortness of breath is also related to that. Patient denies any fevers or chills, rhinorrhea or nasal congestion. Denies any known sick contacts or exposure to coronavirus. Patient denies any abdominal pain, or chest pain. Patient denies any change in bowel or bladder function. Of note I did receive a phone call from Dr. Parson who stated patient has a history of diastolic heart failure, atrial fibrillation and a pacemaker, hypertension, chronic kidney disease, as well as a COPD. Dr. Worthington is the patient's PCP. They state patient has gained about 30 pounds over the last 5 months despite their attempts at outpatient medication changes. States patient is currently on metolazone, Lasix twice daily, and spironolactone, but seems to be failing this regimen and suggest additional inpatient treatment. Pt seen during a time of high acuity and national emergency pandemic while wearing PPE. Home Medications Home Medications Medication Instructions Recorded Confirmed Type aspirin 81 mg PO QAM #0 11/04/16 11/26/19 History ipratropium-albuterol 3 ml INHALATION Q4H PRN #0 inh 11/04/16 11/26/19 History albuterol sulfate 2.5 mg INHALATION BID #0 dose 01/16/17 11/26/19 History metoprolol tartrate 25 mg PO QAM #0 01/16/17 11/26/19 History ferrous sulfate 325 mg PO QAM #0 03/21/17 11/26/19 History metoprolol tartrate 12.5 mg PO HS 02/14/18 11/26/19 History cholecalciferol (vitamin D3) 2,000 unit PO QAM #60 tab 02/19/18 11/26/19 Rx [Vitamin D3] vitamin B complex 1 tab PO QAM 10/18/18 11/26/19 History fluticasone propionate 50 2 spray INTRANASAL QAM #18.2 ml 01/28/19 11/26/19 Rx mcg/actuation nasal spray,suspension albuterol sulfate 90 mcg/actuation 2 puffs INH Q6H PRN #18 gm 04/23/19 11/26/19 Rx aerosol inhaler azelastine 0.15 % (205.5 mcg) 1 sprays INTNAS BID #30 ml 04/23/19 11/26/19 Rx nasal spray spironolactone 25 mg tablet 12.5 mg PO HS #45 tab 05/29/19 11/26/19 Rx omeprazole 20 mg capsule,delayed 20 mg PO BID #180 cap 08/16/19 11/26/19 Rx release mupirocin 2 % topical ointment 1 appln TOP BID #30 gm 08/20/19 11/26/19 Rx fluticasone 500 mcg-salmeterol 50 1 puffs INH BID #60 ea 09/02/19 11/26/19 Rx mcg/dose blistr powdr for inhalation gabapentin 100 mg capsule 100 mg PO .COMPLEX #90 cap 09/20/19 11/26/19 Rx travoprost 0.004 % eye drops 1 drp OPB HS 09/20/19 11/26/19 History nitroglycerin 0.4 mg sublingual 0.4 mg SUBLINGUAL PRN PRN #15 tab 09/27/19 11/26/19 Rx tablet tobramycin 0.3 %-dexamethasone 0.1 See Rx Instructions OP .COMPLEX 11/22/19 11/26/19 Rx % eye drops,suspension #10 ml allopurinol 300 mg PO QAM 11/26/19 11/26/19 History furosemide 80 mg PO QAM 11/26/19 11/26/19 History losartan 50 mg PO QAM 11/26/19 11/26/19 History ofloxacin 5 drp OTL BID 11/26/19 11/26/19 History omega 7-kle-kes-fish oil [Fish Oil] 1 cap PO QAM 11/26/19 11/26/19 History rivaroxaban [Xarelto] 15 mg PO HS 11/26/19 11/26/19 History simvastatin 10 mg PO HS 11/26/19 11/26/19 History spironolactone 25 mg PO QAM 11/26/19 11/26/19 History Allergies Allergy/AdvReac Type Severity Reaction Status Date / Time No Known Drug Allergies Allergy Unknown Verified 11/26/19 14:02 Past Med/Surg History Medical History (Updated 11/28/19 @ 17:06 by Elina Blancas DO) 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 respiratory failure History of heart attack Hx of fracture of pelvis Hypotension Systolic and diastolic CHF, chronic Surgical History History of cataract surgery History of coronary artery stent placement History of dental surgery History of right hip replacement History of tonsillectomy Hx of CABG triple vessel, 2012 Status cardiac pacemaker Family History Family/Other Coronary heart disease Cardiac disorder Hypertension Deafness Hearing loss Other Family history non-contributory Social History Smoking Status: Former smoker Hx Alcohol Use: Yes Alcohol type: hard liquor Alcohol Intake Frequency Comment: Social Hx Substance Use: No Preferred Language: Chilean Communication Ability: Effective Hemodialysis Technician Required: No Beliefs That Will Affect Care: None marital status: marital status details: 2 daughters Current Living Situation: Spouse Current Living Situation Comment: lives at [facility] in an apartment current occupational status: retired 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 and A total of 10 systems reviewed and were otherwise negative Physical Exam Vital Signs Vital Signs - 24 hr 11/26/19 12:42 11/26/19 14:00 11/26/19 14:35 Temperature 36.7 C Temperature Source Oral Pulse Rate 70 Pulse Rate [Apical] 70 71 Respiratory Rate 22 16 18 Blood Pressure 132/54 L Blood Pressure [Right Arm] 129/72 136/69 Blood Pressure Mean 80 Blood Pressure Mean [Right Arm] 91 91 Pulse Oximetry 96 96 94 Oxygen Delivery Method Room Air Room Air Room Air Sepsis Recent Fever Within 48 Hours No Sepsis New/Unexplained Change in Mental Status No Sepsis Action Taken by Nursing No Action Required GENERAL: alert, well appearing, well nourished, no distress, non-toxic, obese, extremely hard of hearing. EYE EXAM: normal conjunctiva, PERRL and EOM's grossly intact OROPHARYNX: no exudate, no erythema, lips, buccal mucosa, and tongue normal and mucous membranes are moist NECK: supple, no nuchal rigidity, no adenopathy, non-tender LUNGS: Clear but decreased to auscultation. Normal chest wall mechanics, no w/r/r, no tachypnea or increased work of breathing, patient does prefer to sit bolt upright with legs hanging off the side of the bed. Mild pursed lip breathing. HEART: no murmurs, S1 normal and S2 normal ABDOMEN: abdomen soft, non-tender, normo-active bowel sounds, no masses, no rebound or guarding. Mild edema noted along the lower abdominal wall. BACK: Back is symmetrical on inspection and there is no deformity, no midline tenderness, no CVA tenderness. No presacral edema. SKIN: no rashes and no bruising UPPER EXTREMITIES: upper extremities are grossly normal. FROM, nml pulses b/l. LOWER EXTREMITIES: 3+pitting edema. FROM, nml pulses b/l. NEURO EXAM: Normal sensorium, cranial nerves II-XII grossly intact, normal speech, no gross weakness of arms, no gross weakness of legs. Gross sensation intact. Course Course 150: Discussed with ROMINA [facility] hospitalist service. Administered Medications Albuterol (Albuterol 0.083% Nebu Soln 3 Ml Vial) 2.5 mg INH BIDR JAQUELINE Stop: 12/26/19 23:04 Last Admin: 11/28/19 07:40 Dose: 2.5 mg Documented by: [id number] Admin: 11/27/19 19:27 Dose: 2.5 mg Documented by: [id number] Admin: 11/27/19 07:26 Dose: 2.5 mg Documented by: [id number] Admin: 11/27/19 00:08 Dose: 2.5 mg Documented by: [id number] Allopurinol (Allopurinol 300 Mg Tab) 300 mg PO QAM [facility] Stop: 12/27/19 08:59 Last Admin: 11/28/19 07:53 Dose: 300 mg Documented by: [id number] Admin: 11/27/19 08:56 Dose: 300 mg Documented by: [id number] Aspirin (Aspirin 81 Mg Ectab) [facility] Stop: 12/27/19 08:59 Last Admin: 11/28/19 07:52 Dose: 81 mg Documented by: [id number] Admin: 11/27/19 08:54 Dose: 81 mg Documented by: [id number] Ferrous Sulfate (Ferrous Sulfate 325 Mg Tab) 325 mg [facility] Stop: 12/27/19 08:59 Last Admin: 11/28/19 07:53 Dose: 325 mg Documented by: [id number] Admin: 11/27/19 08:56 Dose: 325 mg Documented by: [id number] Fish Oil ([place]-3 (Purified Fish Oil) 1 Gm Cap) 1 gm [facility] Stop: 12/27/19 08:59 Last Admin: 11/28/19 07:53 Dose: 1 gm Documented by: [id number] Admin: 11/27/19 08:55 Dose: 1 gm Documented by: [id number] Fluticasone Propionate (Fluticasone Propionate Na Spr 16 Gm Btl) 2 sprays NA QAM [facility] Stop: 12/27/19 08:59 Last Admin: 11/28/19 07:50 Dose: 2 sprays Documented by: [id number] Admin: 11/27/19 09:01 Dose: 2 sprays Documented by: [id number] Fluticasone/Vilanterol (Fluticasone/Vilanterol 200/25mcg 14 Puffs/Inhaler) 1 puffs INH DAILY [facility] Stop: 12/27/19 08:59 Last Admin: 11/28/19 07:51 Dose: 1 puffs Documented by: [id number] Admin: 11/27/19 09:00 Dose: 1 puffs Documented by: [id number] Gabapentin (Gabapentin 100 Mg Cap) 100 - 300 mg PO HS PRN PRN Reason: pain Stop: 12/26/19 23:04 Last Admin: 11/28/19 07:51 Dose: 100 mg Documented by: [id number] Admin: 11/27/19 00:46 Dose: 100 mg Documented by: [id number] Furosemide 40 mg/ Syringe 4 mls @ 4 mls/min IV [id number] [facility] Stop: 12/26/19 23:44 Last Admin: 11/28/19 09:19 Dose: 4 mls/min Documented by: [id number] Admin: 11/27/19 17:16 Dose: 4 mls/min Documented by: [id number] Admin: 11/27/19 08:57 Dose: 4 mls/min Documented by: [id number] Admin: 11/27/19 00:47 Dose: 4 mls/min Documented by: [id number] Losartan Potassium (Losartan Potassium 50 Mg Tab) 50 [facility] Stop: 12/27/19 08:59 Last Admin: 11/28/19 07:53 Dose: 50 mg Documented by: [id number] Admin: 11/27/19 08:57 Dose: 50 mg Documented by: [id number] Metoprolol Tartrate (Metoprolol Tartrate 25 Mg Tab) 12.5 mg PO [facility] Stop: 12/26/19 23:04 Last Admin: 11/27/19 21:03 Dose: 12.5 mg Documented by: [id number] Admin: 11/27/19 00:44 Dose: 12.5 mg Documented by: [id number] Metoprolol Tartrate (Metoprolol Tartrate 25 Mg Tab) 25 mg [facility] Stop: 12/27/19 08:59 Last Admin: 11/28/19 07:51 Dose: 25 mg Documented by: [id number] Admin: 11/27/19 08:57 Dose: 25 mg Documented by: [id number] Miscellaneous (Azleastine~Order Awaiting Action) 1 ea N/A QS [facility] Stop: 12/27/19 07:59 Last Admin: 11/28/19 07:54 Dose: Not Given Documented by: [id number] Admin: 11/27/19 23:25 Dose: Not Given Documented by: [id number] Admin: 11/27/19 15:45 Dose: Not Given Documented by: [id number] Admin: 11/27/19 08:33 Dose: Not Given Documented by: [id number] Mupirocin (Mupirocin 2% Oint 22 Gm Tube) 1 appln EXT BID [facility] Stop: 12/26/19 23:29 Last Admin: 11/28/19 07:50 Dose: 1 appln Documented by: [id number] Admin: 11/27/19 21:05 Dose: 1 appln Documented by: [id number] Admin: 11/27/19 09:03 Dose: 1 appln Documented by: [id number] Admin: 11/27/19 00:43 Dose: 1 appln Documented by: [id number] Pantoprazole Sodium (Pantoprazole 40 Mg Tab) 40 mg PO BID [facility] Stop: 12/26/19 23:44 Last Admin: 11/28/19 07:53 Dose: 40 mg Documented by: [id number] Admin: 11/27/19 21:03 Dose: 40 mg Documented by: [id number] Admin: 11/27/19 08:54 Dose: 40 mg Documented by: [id number] Admin: 11/27/19 00:47 Dose: 40 mg Documented by: [id number] Rivaroxaban (Rivaroxaban 15 Mg Tab) 15 mg PO JAQUELINE Stop: 12/26/19 23:04 Last Admin: 11/27/19 21:03 Dose: 15 mg Documented by: [id number] Admin: 11/27/19 00:44 Dose: 15 mg Documented by: [id number] Simvastatin (Simvastatin 10 Mg Tab) 10 mg PO [facility] Stop: 12/26/19 23:04 Last Admin: 11/27/19 21:03 Dose: 10 mg Documented by: [id number] Admin: 11/27/19 00:46 Dose: 10 mg Documented by: [id number] Spironolactone (Spironolactone 12.5 Mg Tab) 12.5 mg PO JAQUELINE Stop: 12/26/19 23:04 Last Admin: 11/27/19 21:03 Dose: 12.5 mg Documented by: [id number] Admin: 11/27/19 00:45 Dose: 12.5 mg Documented by: [id number] Spironolactone (Spironolactone 25 Mg Tab) 25 mg PO QA [facility] Stop: 12/27/19 08:59 Last Admin: 11/28/19 07:52 Dose: 25 mg Documented by: [id number] Admin: 11/27/19 08:56 Dose: 25 mg Documented by: [id number] Tobramycin/Dexamethasone (Tobramycin/Dexamethasone Oph Susp 2.5 Ml Btl) 5 drops OT BID JAQUELINE Stop: 12/06/19 21:01 Last Admin: 11/28/19 07:54 Dose: 5 drops Documented by: [id number] Admin: 11/27/19 21:05 Dose: 5 drops Documented by: [id number] Admin: 11/27/19 09:02 Dose: 5 drops Documented by: [id number] Admin: 11/27/19 00:48 Dose: 5 drops Documented by: [id number] Travoprost (Travoprost Z 0.004% Oph Soln 2.5 Ml Btl) 1 drops OPB HS JAQUELINE Stop: 12/26/19 23:04 Last Admin: 11/27/19 21:05 Dose: 1 drops Documented by: [id number] Admin: 11/27/19 00:48 Dose: 1 drops Documented by: [id number] Vitamin B Complex (Vitamin B Complex Tab) 1 tab PO QAM [facility]QU[facility] Stop: 12/27/19 08:59 Last Admin: 11/28/19 07:52 Dose: 1 tab Documented by: [id number] Admin: 11/27/19 08:55 Dose: 1 tab Documented by: [id number] Vitamin D (Cholecalciferol 1,000 Units 25 Mcg Tab) 2,000 units PO QAM JAQUELINE Stop: 12/27/19 08:59 Last Admin: 11/28/19 07:52 Dose: 2,000 units Documented by: [id number] Admin: 11/27/19 08:55 Dose: 2,000 units Documented by: [id number] Discontinued Medications Furosemide (Furosemide 10 Mg/Ml 10 Ml Vial) Confirm Administered Dose 10 mg IV .STK-MED ONE Stop: 11/26/19 15:47 Last Admin: 11/26/19 16:14 Dose: Not Given Documented by: [id number] Furosemide (Furosemide 40 Mg/4 Ml Vial) 60 mg IV NOW STA Stop: 11/26/19 16:09 Last Admin: 11/26/19 16:14 Dose: 60 mg Documented by: [id number] Medical Decision Making Differential Diagnosis Differential diagnoses includes but is not limited to pneumonia, bronchitis, COPD/Asthma exacerbation, pneumothorax, pulmonary embolism, congestive heart failure, acute coronary syndrome Medical Records Attestation: I reviewed the patient's medical records. Home Medications Current Medication List: was personally reviewed by me Laboratory Data Attestation: I reviewed the patient's lab results. Result diagrams: 11/28/19 09:28 11/28/19 09:28 Lab Results 11/26/19 11/26/19 Range/Units 13:45 13:45 WBC 7.84 (4.8-10.8) K/uL RBC 3.74 L (4.7-6.1) M/uL Hgb 11.3 L (14.0-18.0) g/dL Hct 35.0 L (42-52) % MCV 93.6 (80-100) fL MCH 30.2 (25-34) pg MCHC 32.3 (32-36) g/dL RDW Std Deviation 52.1 H (36.4-46.3) fL RDW Coeff of Inez 15.2 H (11.5-14.5) % Plt Count 237 (130-400) K/uL MPV 10.9 H (7.4-10.4) fL Immature Gran % (Auto) 0.3 % Neut % (Auto) 77.2 % Lymph % (Auto) 12.8 % [place] % (Auto) 8.7 % Eos % (Auto) 0.9 % Baso % (Auto) 0.1 % Neut # (Auto) 6.06 (1.4-6.5) K/uL Lymph # (Auto) 1.00 L (1.2-3.4) K/uL [place] # (Auto) 0.68 H (0.11-0.59) K/uL Eos # (Auto) 0.07 (0-0.5) K/uL Baso # (Auto) 0.01 (0-0.2) K/uL Immature Gran # (Auto) 0.02 (0.00-0.02) K/uL Sodium 135 L (136-145) mmol/L Potassium 4.5 (3.5-5.1) mmol/L Chloride 98 (98-107) mmol/L Carbon Dioxide 33 H (21-32) mmol/L Anion Gap 4.0 (3-11) BUN 27 H (7-18) mg/dl Creatinine 1.63 H (0.6-1.4) mg/dl Est Cr Clr Drug Dosing 43.4 ml/min Est GFR ( Amer) 45.1 Est GFR (Non-Af Amer) 38.9 BUN/Creatinine Ratio 16.7 (10-20) Glucose 87 (70-99) mg/dl Calcium 9.8 (8.5-10.1) mg/dl Magnesium 2.5 H (1.8-2.4) mg/dl Total Bilirubin 0.5 (0.2-1) mg/dl AST 14 L (15-37) U/L ALT 23 (12-78) U/L Alkaline Phosphatase 94 (45-117) U/L Troponin I < 0.015 (0-0.045) ng/ml NT-Pro-B Natriuret Pep 2757 H (0-1800) pg/ml Total Protein 8.7 H (6.4-8.2) gm/dl Albumin 2.8 L (3.4-5.0) gm/dl Globulin 5.9 H (2.5-4.0) gm/dl Albumin/Globulin Ratio 0.5 L (0.9-2) Lipase 181 (73-393) U/L Imaging Data Radiologist's Impression: XR chest 1V portable HISTORY: 79 years-old Male sob, chf acute shortness of breath with congestive heart failure COMPARISON: Chest radiographs 09/27/2019 TECHNIQUE: Portable AP view of the chest FINDINGS: Cardiac silhouette is moderately enlarged. Prior median sternotomy and CABG. Left subclavian pacer. Emphysema. No pneumothorax, pleural effusion or overt pulmonary edema. There is mild pulmonary vascular congestion. Subsegmental left lung base opacities. IMPRESSION: 1. Cardiomegaly with mild pulmonary vascular congestion. 2. Left lung base opacities favor atelectasis. ACT 112: Negative or not required by law. The above report was generated using voice recognition software. It may contain grammatical, syntax or spelling errors. Electronically signed by: Gio Allen M.D. 11/26/2019 2:24 PM ECG Data Attestation: I personally reviewed and interpreted this ECG as follows: Indication: + SOB/dyspnea Rate (beats per minute): 70 Rhythm: + other (paced) ECG Intervals/blocks: + IVCD and + Prolonged QT ECG [place]: + Normal ECG ST segments: + Nonspecific ST abnormalities Blood Pressure Blood Pressure Findings: Elevated blood pressure Blood Pressure Disposition: further management by hospitalist JENNIFER Narrative Pt here due to increased dyspnea with exertion, orthopnea, weight gain, and edema after discussion with cardiology who has been managing the patient as an outpt and adjusting his multiple medications for heart failure. Labs and cxr performed as a precaution. No hypoxia at rest. Pt also has a hx of COPD. VS otw stable. Discussed with Dr. Parson and then with cardiology given his recommendations. Pt aware of plan, aware of results. An order was placed for continuous cardiac monitoring. The monitor shows a rate of _70 with a paced_ rhythm. Impression & Plan Congestive heart failure, Edema extremities, SOB (shortness of breath), Chronic renal insufficiency Discharge Plan Visit Data Chief Complaint: Shortness of Breath/Dyspnea Stated Complaint: COPD,FILLING UP WITH FLUID,SOB ED Provider: Elina Blancas Discharge Problem: Congestive heart failure, Edema extremities, SOB (shortness of breath), Chronic renal insufficiency Patient Disposition: Admitted As Inpatient Discharge Instructions Interventions: ED Discharge Assessment Last Done: 11/26/19 22:15 Discharge Problem: Congestive heart failure Qualifiers: Heart failure type: combined systolic and diastolic Heart failure chronicity: acute on chronic Qualified Code(s): I50.43 - Acute on chronic combined systolic (congestive) and diastolic (congestive) heart failure Chronic renal insufficiency Qualifiers: Chronic kidney disease stage: unspecified stage Qualified Code(s): N18.9 - Chronic kidney disease, unspecified
[2019-11-26 14:22] LABS: Alanine Aminotransferase 23 U/L (12-78); Albumin Level 2.8 gm/dl (3.4-5.0); Aspartate Aminotransferase 14 U/L (15-37); BUN Creatinine Ratio 16.7 (10-20); Blood Urea Nitrogen 27 mg/dl (7-18); Calcium 9.8 mg/dl (8.5-10.1); Carbon Dioxide 33 mmol/L (21-32); Chloride 98 mmol/L (98-107); Creatinine Clr Calc Pharmacy 43.4 ml/min; Est GFR (African American) 45.1; Est GFR (Non-African American) 38.9; Glucose 87 mg/dl (70-99); Lipase 181 U/L (73-393); Magnesium 2.5 mg/dl (1.8-2.4); Potassium 4.5 mmol/L (3.5-5.1); Sodium 135 mmol/L (136-145)
--- NOTE | 2019-11-26 14:25 | XRay Report ---
XR chest 1V portable HISTORY: 79 years-old Male sob, chf acute shortness of breath with congestive heart failure COMPARISON: Chest radiographs 09/27/2019 TECHNIQUE: Portable AP view of the chest FINDINGS: Cardiac silhouette is moderately enlarged. Prior median sternotomy and CABG. Left subclavian pacer. E mphysema. No pneumothorax, pleural effusion or overt pulmonary edema. There is mild pulmonary vascula r congestion. Subsegmental left lung base opacities. IMPRESSION: 1. Cardiomegaly with mild pulmonary vascular congestion. 2. Left lung base opacities favor atelectasis. ACT 112: Negative or not required by law. The above report was generated using voice recognition software. It may contain grammatical, syntax o r spelling errors. Electronically signed by: Gio Allen M.D. 11/26/2019 2:24 PM
[2019-11-26 14:27] LABS: Albumin Globulin Ratio 0.5 (0.9-2); Alkaline Phosphatase 94 U/L (45-117); Bilirubin,Total 0.5 mg/dl (0.2-1); Globulin 5.9 gm/dl (2.5-4.0); NT Pro B Type Natriuretic Pept 2757 pg/ml (0-1800); Total Protein 8.7 gm/dl (6.4-8.2); Troponin I < 0.015 ng/ml (0-0.045)
[2019-11-26 14:30] LABS: Basophils # (auto) 0.01 K/uL (0-0.2); Basophils % (auto) 0.1 %; Eosinophils # (auto) 0.07 K/uL (0-0.5); Eosinophils % (auto) 0.9 %; Hemoglobin 11.3 g/dL (14.0-18.0); Immature Granulocytes # (auto) 0.02 K/uL (0.00-0.02); Immature Granulocytes % (auto) 0.3 %; Lymphocytes % (auto) 12.8 %; Mean Corpuscular Hemoglobin 30.2 pg (25-34); Mean Corpuscular Hgb Conc 32.3 g/dL (32-36); Mean Corpuscular Volume 93.6 fL (80-100); Mean Platelet Volume 10.9 fL (7.4-10.4); Monocytes # (auto) 0.68 K/uL (0.11-0.59); Monocytes % (auto) 8.7 %; Neutrophils # (auto) 6.06 K/uL (1.4-6.5); Neutrophils % (auto) 77.2 %; Platelet Count 237 K/uL (130-400); RDW Coefficient of Variation 15.2 % (11.5-14.5); RDW Standard Deviation 52.1 fL (36.4-46.3); Red Blood Count 3.74 M/uL (4.7-6.1); White Blood Count 7.84 K/uL (4.8-10.8)
--- NOTE | 2019-11-26 15:42 | History & Physical Report ---
Date of Service November 26, 2019 Assessment & Plan (1) Cor pulmonale: -Admit to telemetry -Cardiology consulted, follows with Dr. Parson-was referred from his office for admission for diuresis due to volume overload of 30 pounds in the past month. - Will start on Lasix 60 mg IV now and then continue 40mg IV BID starting tonight - BMP with am labs to monitor renal function and electrolytes -Place Curtis for strict I's and O's -Fluid restriction of 1500 mL/day, cardiac diet, low sodium (2) Chronic diastolic CHF (congestive heart failure): -Chronic, appears to be more cor pulmonale at this point versus acute diastolic CHF. -CXR reviewed and does not appear to be grossly volume overloaded, breath sounds are fairly clear, faint wheezing likely more COPD, no crackles -Significant pitting edema in bilateral lower extremities, also involving abd omen -Continue antihypertensives, aspirin, diuresis as above (3) Afib: -Currently NSR, rate controlled, continue Xarelto (4) COPD (chronic obstructive pulmonary disease): -Continue albuterol, fluticasone salmeterol (5) SANDOR (obstructive sleep apnea): -Continue CPAP at bedtime (6) Hypertension: -Continue spironolactone 25 mg daily, continue metoprolol tartrate 12.5 mg HS, losartan 50 mg qam - holding Lasix with administration of IV as above, (7) Hyperlipidemia: -Continue simvastatin 10 mg at bedtime -Check lipid panel with a.m. labs completeness (8) Coronary artery disease: -Continue ASA, statin therapy, beta-blockade -EKG reviewed no signs of ST wave inversions or acute ischemia to be concerned for ACS, initial troponin negative, BNP slightly elevated at 2700 (9) Morbid obesity: -BMI of 42.7, diet and exercise to be encouraged -Would likely benefit from referral to cardiac CHF clinic per [facility] cardiology -Encourage ambulation once swelling improved (10) Chronic kidney disease, stage 3a: -Creatinine/BUN stable, follow with a.m. 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 Parson's office, cardiology, that he is significantly volume overloaded and not responding to outpatient diuretics. He presents here although he reports he feels very well. Denies any specific complaints regarding chest pain, palpitations, shortness of breath, dyspnea on exertion. He does admit to having orthopnea and must sleep in a raised position, and that he does feel signif icantly winded with minimal exertion. He can no longer get his compression stockings on his legs due to the amount of swelling in his feet and legs. He does try to keep his feet elevated but reports that he cannot stand to be lying back due to shortness of breath. He reports that his normally helps him with attempting to massage his legs to reduce the amount of swelling. 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 He does not limit the amount of fluid he's consuming, and drinks about The patient was referred by Dr. Parson, [facility] cardiology due to 30 pounds of increased weight over the past month. Allergies Allergy/AdvReac Type Severity Reaction Status Date / Time No Known Drug Allergies Allergy Unknown Verified 11/26/19 14:02 Home Medications Home Medications Medication Instructions Recorded Confirmed Type aspirin 81 mg PO QAM #0 11/04/16 11/26/19 History ipratropium-albuterol 3 ml INHALATION Q4H PRN #0 inh 11/04/16 11/26/19 History albuterol sulfate 2.5 mg INHALATION BID #0 dose 01/16/17 11/26/19 History metoprolol tartrate 25 mg PO QAM #0 01/16/17 11/26/19 History ferrous sulfate 325 mg PO QAM #0 03/21/17 11/26/19 History metoprolol tartrate 12.5 mg PO HS 02/14/18 11/26/19 History cholecalciferol (vitamin D3) 2,000 unit PO QAM #60 tab 02/19/18 11/26/19 Rx [Vitamin D3] vitamin B complex 1 tab PO QAM 10/18/18 11/26/19 History fluticasone propionate 50 2 spray INTRANASAL QAM #18.2 ml 01/28/19 11/26/19 Rx mcg/actuation nasal spray,suspension albuterol sulfate 90 mcg/actuation 2 puffs INH Q6H PRN #18 gm 04/23/19 11/26/19 Rx aerosol inhaler azelastine 0.15 % (205.5 mcg) 1 sprays INTNAS BID #30 ml 04/23/19 11/26/19 Rx nasal spray spironolactone 25 mg tablet 12.5 mg PO HS #45 tab 05/29/19 11/26/19 Rx omeprazole 20 mg capsule,delayed 20 mg PO BID #180 cap 08/16/19 11/26/19 Rx release mupirocin 2 % topical ointment 1 appln TOP BID #30 gm 08/20/19 11/26/19 Rx fluticasone 500 mcg-salmeterol 50 1 puffs INH BID #60 ea 09/02/19 11/26/19 Rx mcg/dose blistr powdr for inhalation gabapentin 100 mg capsule 100 mg PO .COMPLEX #90 cap 09/20/19 11/26/19 Rx travoprost 0.004 % eye drops 1 drp OPB HS 09/20/19 11/26/19 History nitroglycerin 0.4 mg sublingual 0.4 mg SUBLINGUAL PRN PRN #15 tab 09/27/19 11/26/19 Rx tablet tobramycin 0.3 %-dexamethasone 0.1 See Rx Instructions OP .COMPLEX 11/22/19 11/26/19 Rx % eye drops,suspension #10 ml allopurinol 300 mg PO QAM 11/26/19 11/26/19 History furosemide 80 mg PO QAM 11/26/19 11/26/19 History losartan 50 mg PO QAM 11/26/19 11/26/19 History ofloxacin 5 drp OTL BID 11/26/19 11/26/19 History omega [id number]-fish oil [Fish Oil] 1 cap PO QAM 11/26/19 11/26/19 History rivaroxaban [Xarelto] 15 mg PO HS 11/26/19 11/26/19 History simvastatin 10 mg PO HS 11/26/19 11/26/19 History spironolactone 25 mg PO QAM 11/26/19 11/26/19 History Past Med/Surg History Medical History 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 respiratory failure History of heart attack Hx of fracture of pelvis Hypotension Systolic and diastolic CHF, chronic Surgical History History of cataract surgery History of coronary artery stent placement History of dental surgery History of right hip replacement History of tonsillectomy Hx of CABG triple vessel, 2012 Status cardiac pacemaker Family History Family/Other Coronary heart disease Cardiac disorder Hypertension Deafness Hearing loss Other Family history non-contributory Social History Smoking Status: Never smoker Hx Alcohol Use: Yes Alcohol type: beer and hard liquor Alcohol Intake Frequency Comment: Social Hx Substance Use: No Preferred Language: [place] Communication Ability: Effective Label Maker Required: No Beliefs That Will Affect Care: None marital status: marital status details: 2 daughters Current Living Situation: Spouse and Personal Care Facility Current Living Situation Comment: lives at [facility] in an apartment current occupational status: retired 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 Feels Safe at Home: Yes Assistive Devices: Walker Review of Systems Review of Systems: Constitutional: No fever, sweats or chills Eyes: No diplopia, no worsening or blurred vision ENT: normal hearing, no trouble swallowing Respiratory: No cough, sputum, dyspnea at rest, + ALEMAN, + orthopnea Cardiovascular: No chest pain, tightness or palpitations Abdomen: No pain, nausea, vomiting, diarrhea or constipation Musculoskeletal: No joint pain, calf pain, + severe bilateral leg swelling Neurologic: No weakness, numbness/tingling, or balance problems Psychiatric: No anxiety or depression Skin: No rash or itch Physical Exam Physical Exam: General: awake, alert, no apparent distress, + morbidly obese, BMI=42.7 Head: Normocephalic, atraumatic ENT: PERRL, EOMI, no pharyngeal exudate, mucous membranes moist Chest: Clear to auscultation, + faint expiratory wheeze, no crackles or rales, on room air, no adventitious breath sounds Cardiac: Regular rate and rhythm, no murmur, no JVD, normal peripheral pulses, good capillary refill Abdominal: NABS x 4 quadrants, soft, + mildly distended, edematous, nontender to palpation, no rebound or guarding Extremities: 3+ pitting peripheral edema BLE, no erythema, calfs nontender to palpation Psych: Normal mood and affect Skin: no rashes or lesions Neuro: AAO x 3, strength intact bilaterally and rated 5/5, no motor deficits, speech is clear, no peripheral sensory deficits Results & Data Results & Data ([facility]) Vital Signs (Past 12 Hours) Vital Signs Temp Pulse Pulse Resp BP BP Pulse Ox 11/26/19 15:00 137/74 11/26/19 14:35 71 18 136/69 94 11/26/19 14:31 70 13 136/69 96 11/26/19 14:30 70 17 93 11/26/19 14:20 70 13 95 11/26/19 14:10 70 19 97 11/26/19 14:01 70 14 129/72 97 11/26/19 14:00 70 70 19 129/72 96 11/26/19 12:42 36.7 C 70 22 132/54 L 96 Code Status & VTE Plan Code Status Full code - discussed with the pt at bedside VTE Prophylaxis Plan VTE Prophylaxis will be ordered: Yes Supervising Physician Co-Signing Physician Notes Patient was seen and examined independently I discussed the case with Rachelle Patel PAC I reviewed pertinent past medical social family history and also the plan of care and agree with the plan of care. Patient was admitted with volume overload felt secondary to diastolic heart failure and likely some cor pulmonale. The patient reported he has had a significant weight gain and has been intolerant of escalating doses of diuresis orally to try to have any effective change in his body weight and fluid overload. Patiently brought our facility for intravenous diuretics with surveillance of his renal function. Patient remains in rate controlled atrial fibrillation has stable COPD with is likely the origin of his cor pulmonale as well as some obstructive sleep apnea. He will be offered CPAP at bedtime Patient was no no respiratory stress when I evaluated him he did have decreased air movement consistent with a COPD and he did have fairly significant peripheral edema 2-3+ in his pretibial and pedal area Any exceptions will be noted below PG Care Time/CCT Total # of Minutes Spent Total Time Spent with Patient: Total time spent is greater than 50% in coordination of care (as documented) at patient's floor/unit and/or counseling patient: Coding Level of Care Code 18211 Initial Inpt Care Lvl 3 Diagnoses Cor pulmonale I27.81 Chronic diastolic CHF (congestive heart failure) I50.32 Afib I48.2 Atrial fibrillation type: chronic COPD (chronic obstructive pulmonary disease) J44.9 SANDOR (obstructive sleep apnea) G47.33 Hypertension I10 Hypertension type: essential hypertension Hyperlipidemia E78.2 Hyperlipidemia type: mixed hyperlipidemia Coronary artery disease I25.10 Associated angina: without angina Coronary Disease-Associated Artery/Lesion type: [place] artery [place] vs. transplanted heart: [place] heart Morbid obesity E66.01 Chronic kidney disease, stage 3a N18.3 Chronic renal insufficiency N18.9 Complex sleep apnea syndrome G47.31 Peripheral neuropathy G62.9 Neuropathy G62.9 (1) Coronary artery disease Associated angina: without angina Coronary Disease-Associated Artery/Lesion type: [place] artery [place] vs. transplanted heart: [place] heart Qualified Code(s): I25.10 - Atherosclerotic heart disease of [place] coronary artery without angina pectoris (2) Afib Atrial fibrillation type: chronic Qualified Code(s): I48.2 - Chronic atrial fibrillation (3) Hyperlipidemia Hyperlipidemia type: mixed hyperlipidemia Qualified Code(s): E78.2 - Mixed hyperlipidemia (4) Hypertension Hypertension type: essential hypertension Qualified Code(s): I10 - Essential (primary) hypertension
[2019-11-26] MEDS: FUROSEMIDE 10 MG/ML 10 ML VIAL IV ONE ×2 (15:56→16:14)
[2019-11-26] MEDS ORDERED: FUROSEMIDE 40 MG/4 ML VIAL IV STA (16:08)
--- NOTE | 2019-11-26 16:27 | Electrocardiogram Report ---
Test Reason : Blood Pressure : / mmHG Vent. Rate : 070 BPM Atrial Rate : 066 BPM P-R Int : 000 ms QRS Dur : 128 ms QT Int : 460 ms P-R-T Axes : 000 -39 091 degrees QTc Int : 496 ms Ventricular-paced rhythm Underlying atrial fibrillation Abnormal ECG When compared with ECG of 14-FEB-2018 11:54, Vent. rate has increased BY 9 BPM Confirmed by Bunny Chambers ([id number]) on 11/26/2019 4:26:58 PM Referred By: REFERRED SELF Confirmed By:Bunny Chambers
[2019-11-26] MEDS ORDERED: ALBUTEROL HFA 8 GM INHALER INH PRN (23:05)
[2019-11-26] MEDS ORDERED: FUROSEMIDE 40 MG/4 ML VIAL IV SCH (23:05)
[2019-11-26] MEDS ORDERED: ONDANSETRON INJ 2 MG/ML 2 ML VIAL IV PRN (23:05)
[2019-11-26] MEDS ORDERED: OFLOXACIN OTL SCH (23:05)
[2019-11-26] MEDS ORDERED: ALBUT/IPRATROP 3MG/0.5MG NEB 3 ML VIAL INH PRN (23:05)
[2019-11-26] MEDS ORDERED: NITROGLYCERIN SL 0.4 MG/TAB TAB SL PRN (23:05)
[2019-11-26] MEDS ORDERED: ACETAMINOPHEN 325 MG TAB PO PRN (23:05)
[2019-11-27] MEDS: ALBUTEROL 0.083% NEBU SOLN 3 ML VIAL INH SCH ×3 (00:08→19:27)
[2019-11-27] MEDS: MUPIROCIN 2% OINT 22 GM TUBE EXT SCH ×3 (00:43→21:05)
[2019-11-27] MEDS: RIVAROXABAN 15 MG TAB PO SCH ×2 (00:44→21:03)
[2019-11-27] MEDS: METOPROLOL TARTRATE 25 MG TAB PO SCH ×3 (00:44→21:03)
[2019-11-27] MEDS: SPIRONOLACTONE 12.5 MG TAB PO SCH ×2 (00:45→21:03)
[2019-11-27] MEDS: SIMVASTATIN 10 MG TAB PO SCH ×2 (00:46→21:03)
[2019-11-27] MEDS: GABAPENTIN 100 MG CAP PO PRN (00:46)
[2019-11-27] MEDS: FUROSEMIDE 40 MG in SYRINGE 0 ML IV SCH ×3 (00:47→17:16)
[2019-11-27] MEDS: PANTOprazole 40 MG TAB PO SCH ×3 (00:47→21:03)
[2019-11-27] MEDS: TOBRAMYCIN/DEXAMETHASONE OPH SUSP 2.5 ML BTL OT SCH ×3 (00:48→21:05)
[2019-11-27] MEDS: TRAVOPROST Z 0.004% OPH SOLN 2.5 ML BTL OPB SCH ×2 (00:48→21:05)
[2019-11-27 07:21] LABS: Hematocrit (blood only) 35.6 % (42-52); Hemoglobin 11.6 g/dL (14.0-18.0); Mean Corpuscular Hemoglobin 30.4 pg (25-34); Mean Corpuscular Hgb Conc 32.6 g/dL (32-36); Mean Corpuscular Volume 93.2 fL (80-100); Mean Platelet Volume 10.8 fL (7.4-10.4); Platelet Count 235 K/uL (130-400); RDW Coefficient of Variation 15.5 % (11.5-14.5); Red Blood Count 3.82 M/uL (4.7-6.1); White Blood Count 7.06 K/uL (4.8-10.8)
[2019-11-27 07:56] LABS: Albumin Level 2.8 gm/dl (3.4-5.0); BUN Creatinine Ratio 16.9 (10-20); Creatinine Clr Calc Pharmacy 42.1 ml/min; Est GFR (African American) 44.8; Est GFR (Non-African American) 38.6; Magnesium 2.4 mg/dl (1.8-2.4); Potassium 4.1 mmol/L (3.5-5.1)
[2019-11-27 08:00] LABS: Albumin Globulin Ratio 0.5 (0.9-2); Bilirubin,Total 0.6 mg/dl (0.2-1); Globulin 6.1 gm/dl (2.5-4.0); Phosphorus 3.6 mg/dl (2.5-4.9); Total Protein 8.9 gm/dl (6.4-8.2)
[2019-11-27] MEDS: ASPIRIN 81 MG ECTAB PO SCH (08:54)
[2019-11-27] MEDS: OMEGA-3 (PURIFIED FISH OIL) 1 GM CAP PO SCH (08:55)
[2019-11-27] MEDS: CHOLECALCIFEROL 1,000 UNITS 25 MCG TAB PO SCH (08:55)
[2019-11-27] MEDS: VITAMIN B COMPLEX TAB PO SCH (08:55)
[2019-11-27] MEDS: SPIRONOLACTONE 25 MG TAB PO SCH (08:56)
[2019-11-27] MEDS: FERROUS SULFATE 325 MG TAB PO SCH (08:56)
[2019-11-27] MEDS: allopurinoL 300 MG TAB PO SCH (08:56)
[2019-11-27] MEDS: LOSARTAN POTASSIUM 50 MG TAB PO SCH (08:57)
[2019-11-27] MEDS: FLUTICASONE/VILANTEROL 200/25MCG 14 PUFFS/INHALER INH SCH (09:00)
[2019-11-27] MEDS: FLUTICASONE PROPIONATE NA SPR 16 GM BTL SCH (09:01)
--- NOTE | 2019-11-27 10:40 | Hospitalist Progress Note ---
Date of Service November 27, 2019 Assessment & Plan (1) Cor pulmonale: -Cardiology consulted typically sees Rajinder Stauffer and Dr. Parson -Initially given Lasix 60 mg IV, and then continue 40mg IV BID patient has had good diuresis with -2.4 L and weight reduction 9 pound -Continue diuresis until we see some change in renal function hopeful improvement of his lower extremities -Place Curtis -Fluid restriction of 1500 mL/day, cardiac diet, low sodium (2) Chronic diastolic CHF (congestive heart failure): -Chronic, appears to be more cor pulmonale at this point versus acute diastolic CHF. -We will get echocardiogram to evaluate pulmonary pressures -Continue antihypertensives, aspirin, diuresis as above (3) Afib: -Currently NSR, rate controlled, continue Xarelto (4) COPD (chronic obstructive pulmonary disease): -Continue albuterol, fluticasone salmeterol (5) SANDOR (obstructive sleep apnea): -Continue CPAP at bedtime (6) Hypertension: -Continue spironolactone 25 mg daily, continue metoprolol tartrate 12.5 mg HS, losartan 50 mg qam - (7) Hyperlipidemia: -Continue simvastatin 10 mg at bedtime (8) Coronary artery disease: -Continue ASA, statin therapy, beta-blockade -EKG reviewed no signs of ST wave inversions or acute ischemia to be concerned for ACS, initial troponin negative, BNP slightly elevated at 2700 (9) Morbid obesity: -BMI of 42.7, diet and exercise to be encouraged -Would likely benefit from referral to cardiac CHF clinic per [facility] cardiology PT OT evaluation (10) Chronic kidney disease, stage 3a: -Creatinine/BUN stable, follow with a.m. 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: Continue CPAP at bedtime (13) Peripheral neuropathy: -Noted, continue gabapentin Prophylaxis - teds, scds CODE: Full code-discussed with the patient at bedside (14) Neuropathy: Admission and Anticipated Discharge Date Admission Date: November 26, 2019 Review of Systems Review of Systems: Constitutional: No fever, sweats or chills Eyes: No diplopia, no worsening or blurred vision ENT: normal hearing, no trouble swallowing Respiratory: No cough, sputum, dyspnea at rest, + ALEMAN, + orthopnea Cardiovascular: No chest pain, tightness or palpitations Abdomen: No pain, nausea, vomiting, diarrhea or constipation Musculoskeletal: No joint pain, calf pain, + severe bilateral leg swelling Neurologic: No weakness, numbness/tingling, or balance problems Psychiatric: No anxiety or depression Skin: No rash or itch Physical Exam Physical Exam: The patient appeared well nourished and normally developed. Vital signs as documented. Head exam is normocephalic atraumatic no scleral icterus Neck difficult to assess for JVD due to rodriges and body habitus Lungs are diminished throughout crackles at the bases Cardiac exam, Rhythm is regular.. Systolic murmur is heard Abdominal exam reveals normal bowel sounds, soft non tender, no masses Extremities are 2-3+ edematous and both pedal pulses are present Neurologic exam is alert and oriented, no focal loss of strength or sensation Skin is without bruises or rashes Psychologically is without concerns for anxiety or depression. Results & Data Results & Data ([facility]) Vital Signs (Past 12 Hours) Vital Signs Temp Pulse Pulse Pulse Resp BP Pulse Ox 11/27/19 07:37 97.9 F 70 18 158/71 H 93 11/27/19 07:26 69 18 96 11/27/19 05:47 70 11/27/19 03:26 98.1 F 69 18 132/76 93 11/27/19 00:08 69 18 99 11/26/19 23:10 98.6 F 70 18 154/75 H 93 PG Care Time/CCT Total # of Minutes Spent Total Time Spent with Patient: Total time spent is greater than 50% in coordination of care (as documented) at patient's floor/unit and/or counseling patient: Coding Level of Care Code 48192 Subseq Hosp Care Lvl 3 Diagnoses Cor pulmonale I27.81 Chronic diastolic CHF (congestive heart failure) I50.32 Afib I48.2 Atrial fibrillation type: chronic COPD (chronic obstructive pulmonary disease) J44.9 SANDOR (obstructive sleep apnea) G47.33 Hypertension I10 Hypertension type: essential hypertension Hyperlipidemia E78.2 Hyperlipidemia type: mixed hyperlipidemia Coronary artery disease I25.10 Associated angina: without angina Coronary Disease-Associated Artery/Lesion type: [place] artery [place] vs. transplanted heart: [place] heart Morbid obesity E66.01 Chronic kidney disease, stage 3a N18.3 Chronic renal insufficiency N18.9 Complex sleep apnea syndrome G47.31 Peripheral neuropathy G62.9 Neuropathy G62.9 (1) Coronary artery disease Associated angina: without angina Coronary Disease-Associated Artery/Lesion type: [place] artery [place] vs. transplanted heart: [place] heart Qualified Code(s): I25.10 - Atherosclerotic heart disease of [place] coronary artery without angina pectoris (2) Afib Atrial fibrillation type: chronic Qualified Code(s): I48.2 - Chronic atrial fibrillation (3) Hyperlipidemia Hyperlipidemia type: mixed hyperlipidemia Qualified Code(s): E78.2 - Mixed hyperlipidemia (4) Hypertension Hypertension type: essential hypertension Qualified Code(s): I10 - Essential (primary) hypertension
--- NOTE | 2019-11-27 11:45 | Cardiology Consultation ---
Date of Consultation November 27, 2019 Assessment & Plan (1) Weight gain with edema: Male with longstanding history of hypertensive heart disease, ischemic heart disease and mixed systolic and diastolic heart failure complicated by chronic obstructive lung disease and severe obstructive sleep apnea. Patient the past has undergone AV junction ablation for uncontrolled atrial fibrillation and biventricular pacemaker insertion. Patient presents now with signs and symptoms of acute volume overload gradually trending upward of 20 to 30 pounds with weight gain over the past 3 months. Attempts to manage with outpatient oral regimen was not well-tolerated with patient developing hyponatremia and persistent weight gain Patient now admitted with plan IV diuresis and has responded initially to therapies would continue. I reinstitute CPAP with patient to be supplied home device Current renal function appears stable and patient responded to initial diuretics Echocardiogram ordered and will be reviewed We will follow with patient (2) Chronic diastolic CHF (congestive heart failure): (3) Systolic and diastolic CHF, chronic: (4) Cor pulmonale: (5) SANDOR (obstructive sleep apnea): (6) Chronic renal insufficiency: History of Present Illness Reason for Consultation: Diastolic heart failure volume overload Requesting Physician: Dr. Dillon Attending Physician: Ken Dillon History of Present Illness SUBJECTIVE: Rodrigo Mane is a 79 year old year old male with ongoing cardiac issues notes as per outpatient vision yesterday 1. Atherosclerotic coronary artery disease: 1. Status post PCI of the left circumflex coronary artery in [address]-segment elevation myocardial infarction. 2. Status post PCI of the left anterior descending in 2000 for progression of symptoms. 3. Status post Coronary bypass grafting in March of 2011 for severe mul tivessel disease, NSTEMI in the setting of rapid atrial fibrillation, receiving at that time a REILLY graft to the LAD, a saphenous vein graft to the obtuse marginal, a saphenous vein graft to the post descending artery. 2. Severe longstanding and labile hypertension with hypertensive heart disease 3. Chronic diastolic congestive heart failure, NYHA Class III 4. Chronic obstructive lung disease 5. Severe obstructive sleep apnea and nocturnal hypoxemia on CPAP therapy 6. 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 [id number] 5. Renally dosed Xarelto anticoagulation 8. Dyslipidemia. 9. Hospitalization with acetabular fracture, October 2016, with complex clinical course. 10. Hospitalization with acute hypoxia, pneumonia, hypercapnic respiratory failure, December 2016, complicated by atrial fibrillation with a rapid ventricular response. 11. Hospitalization in January 2017 with influenza A 12. Mechanical fracture of distal right femur February 2018 Patient presents after initial evaluation 10/29/2019 with signs and symptoms of acute volume overload and significant hyponatremia on laboratory testing. Furosemide was increased and metolazone previously used was discontinued due to medication due to hyponatremia Spironolactone was continued at 25 mg a.m. 12.5 mg p.m. Fluid restriction recommended Patient presents now noting persistent signs and symptoms of edema abdominal bloating and distension. Continues to have significant orthopnea sleeping in a recliner with marked dyspnea on reclining at recent eye exam Patient weight has continued to trend upward despite increased diuretics and total weight gain is greater than 20 lb over the past 2 months Patient denies fevers chills or sweats. Is being treating for chronic ear infection No bleeding difficulties melena hematochezia. Does note he has been poorly compliant with fluid restriction drinking 80 oz or more per day Since hospital admission patient has responded to IV diuretics with nearly 3 L diuresis. Currently more comfortable but still persistent leg edema and abdominal distention Allergies Allergy/AdvReac Type Severity Reaction Status Date / Time No Known Drug Allergies Allergy Unknown Verified 11/26/19 14:02 Home Medications Home Medications Medication Instructions Recorded Confirmed Type aspirin 81 mg PO QAM #0 11/04/16 11/26/19 History ipratropium-albuterol 3 ml INHALATION Q4H PRN #0 inh 11/04/16 11/26/19 History albuterol sulfate 2.5 mg INHALATION BID #0 dose 01/16/17 11/26/19 History metoprolol tartrate 25 mg PO QAM #0 01/16/17 11/26/19 History ferrous sulfate 325 mg PO QAM #0 03/21/17 11/26/19 History metoprolol tartrate 12.5 mg PO HS 02/14/18 11/26/19 History cholecalciferol (vitamin D3) 2,000 unit PO QAM #60 tab 02/19/18 11/26/19 Rx [Vitamin D3] vitamin B complex 1 tab PO QAM 10/18/18 11/26/19 History fluticasone propionate 50 2 spray INTRANASAL QAM #18.2 ml 01/28/19 11/26/19 Rx mcg/actuation nasal spray,suspension albuterol sulfate 90 mcg/actuation 2 puffs INH Q6H PRN #18 gm 04/23/19 11/26/19 Rx aerosol inhaler azelastine 0.15 % (205.5 mcg) 1 sprays INTNAS BID #30 ml 04/23/19 11/26/19 Rx nasal spray spironolactone 25 mg tablet 12.5 mg PO HS #45 tab 05/29/19 11/26/19 Rx omeprazole 20 mg capsule,delayed 20 mg PO BID #180 cap 08/16/19 11/26/19 Rx release mupirocin 2 % topical ointment 1 appln TOP BID #30 gm 08/20/19 11/26/19 Rx fluticasone 500 mcg-salmeterol 50 1 puffs INH BID #60 ea 09/02/19 11/26/19 Rx mcg/dose blistr powdr for inhalation gabapentin 100 mg capsule 100 mg PO .COMPLEX #90 cap 09/20/19 11/26/19 Rx travoprost 0.004 % eye drops 1 drp OPB HS 09/20/19 11/26/19 History nitroglycerin 0.4 mg sublingual 0.4 mg SUBLINGUAL PRN PRN #15 tab 09/27/19 11/26/19 Rx tablet tobramycin 0.3 %-dexamethasone 0.1 See Rx Instructions OP .COMPLEX 11/22/19 11/26/19 Rx % eye drops,suspension #10 ml allopurinol 300 mg PO QAM 11/26/19 11/26/19 History furosemide 80 mg PO QAM 11/26/19 11/26/19 History losartan 50 mg PO QAM 11/26/19 11/26/19 History ofloxacin 5 drp OTL BID 11/26/19 11/26/19 History omega 6-hen-wlu-fish oil [Fish Oil] 1 cap PO QAM 11/26/19 11/26/19 History rivaroxaban [Xarelto] 15 mg PO HS 11/26/19 11/26/19 History simvastatin 10 mg PO HS 11/26/19 11/26/19 History spironolactone 25 mg PO QAM 11/26/19 11/26/19 History Patient History Medical History (Updated 11/27/19 @ 11:55 by Jordan Parson MD) 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 respiratory failure History of heart attack Hx of fracture of pelvis Hypotension Systolic and diastolic CHF, chronic Surgical History History of cataract surgery History of coronary artery stent placement History of dental surgery History of right hip replacement History of tonsillectomy Hx of CABG triple vessel, 2012 Status cardiac pacemaker Family History Family/Other Coronary heart disease Cardiac disorder Hypertension Deafness Hearing loss Other Family history non-contributory Social History Smoking Status: Former smoker Hx Alcohol Use: Yes Alcohol type: hard liquor Alcohol Intake Frequency Comment: Social Hx Substance Use: No Preferred Language: Dominican Communication Ability: Effective Pediatric Intensive Physician Required: No Beliefs That Will Affect Care: None marital status: marital status details: 2 daughters Current Living Situation: Spouse Current Living Situation Comment: [facility] apartment current occupational status: retired other: worked [employer] x 30 years previously Feels Safe at Home: Yes Assistive Devices: Walker Review of Systems Review of Systems: All systems reviewed & are unremarkable except as noted in HPI & below Physical Exam Constitutional: + obese; no acute distress Eyes: PERRL, conjunctivae normal, anicteric sclerae ENMT: external ear and nose normal, oropharynx normal Neck: trachea midline, no thyromegaly + thick neck Respiratory: Markedly diminished breath sounds diffusely without rhonchi rales or wheeze Cardiovascular: Rate/Rhythm: regular rate and regular rhythm (Biventricular paced) Heart Sounds: normal S1 and normal S2; no gallop and no murmur Palpation: normal PMI Vessels: normal carotid upstroke and radial pulses present; no carotid bruit Extremities: + edema (2-3+ edema extending from lower legs up into the thighs with abdominal distention) Chest (Breasts): Chest: + pacemaker Gastrointestinal (Abdomen): normal bowel sounds, soft, nontender, no hepatosplenomegaly Musculoskeletal: no cyanosis or clubbing, extremities motor strength 5/5 Skin: no rashes, warm and dry Neurologic: PERRL, EOMI, accommodation nl, no face palsy, no dysarthria Psychiatric: A+Ox3, euthymic affect Results & Data ([facility]) Vital Signs (Past 12 Hours) Vital Signs Temp Pulse Pulse Pulse Resp BP Pulse Ox 11/27/19 11:22 36.6 C 69 18 133/76 94 11/27/19 11:02 70 11/27/19 07:37 36.6 C 70 18 158/71 H 93 11/27/19 07:26 69 18 96 11/27/19 05:47 70 11/27/19 03:26 36.7 C 69 18 132/76 93 11/27/19 00:08 69 18 99 Laboratory Results Laboratory Results - last 24 hr 11/26/19 11/26/19 11/27/19 13:45 13:45 06:41 WBC 7.84 7.06 RBC 3.74 L 3.82 L Hgb 11.3 L 11.6 L Hct 35.0 L 35.6 L MCV 93.6 93.2 MCH 30.2 30.4 MCHC 32.3 32.6 RDW Std Deviation 52.1 H 52.0 H RDW Coeff of Inez 15.2 H 15.5 H Plt Count 237 235 MPV 10.9 H 10.8 H Immature Gran % (Auto) 0.3 Neut % (Auto) 77.2 Lymph % (Auto) 12.8 [place] % (Auto) 8.7 Eos % (Auto) 0.9 Baso % (Auto) 0.1 Neut # (Auto) 6.06 Lymph # (Auto) 1.00 L [place] # (Auto) 0.68 H Eos # (Auto) 0.07 Baso # (Auto) 0.01 Immature Gran # (Auto) 0.02 Sodium 135 L Potassium 4.5 Chloride 98 Carbon Dioxide 33 H Anion Gap 4.0 BUN 27 H Creatinine 1.63 H Est Cr Clr Drug Dosing 43.4 Est GFR ( Amer) 45.1 Est GFR (Non-Af Amer) 38.9 BUN/Creatinine Ratio 16.7 Glucose 87 Calcium 9.8 Phosphorus Magnesium 2.5 H Total Bilirubin 0.5 AST 14 L ALT 23 Alkaline Phosphatase 94 Troponin I < 0.015 NT-Pro-B Natriuret Pep 2757 H Total Protein 8.7 H Albumin 2.8 L Globulin 5.9 H Albumin/Globulin Ratio 0.5 L Triglycerides Cholesterol LDL Cholesterol, Calc VLDL Cholesterol, Calc HDL Cholesterol Cholesterol/HDL Ratio Lipase 181 11/27/19 06:41 WBC RBC Hgb Hct MCV MCH MCHC RDW Std Deviation RDW Coeff of Inez Plt Count MPV Immature Gran % (Auto) Neut % (Auto) Lymph % (Auto) [place] % (Auto) Eos % (Auto) Baso % (Auto) Neut # (Auto) Lymph # (Auto) [place] # (Auto) Eos # (Auto) Baso # (Auto) Immature Gran # (Auto) Sodium 135 L Potassium 4.1 Chloride 98 Carbon Dioxide 32 Anion Gap 5.0 BUN 28 H Creatinine 1.64 H Est Cr Clr Drug Dosing 42.1 Est GFR ( Amer) 44.8 Est GFR (Non-Af Amer) 38.6 BUN/Creatinine Ratio 16.9 Glucose 104 H Calcium 10.0 Phosphorus 3.6 Magnesium 2.4 Total Bilirubin 0.6 AST 15 ALT 22 Alkaline Phosphatase 96 Troponin I NT-Pro-B Natriuret Pep Total Protein 8.9 H Albumin 2.8 L Globulin 6.1 H Albumin/Globulin Ratio 0.5 L Triglycerides 96 Cholesterol 87 LDL Cholesterol, Calc 19 VLDL Cholesterol, Calc 19 HDL Cholesterol 49 Cholesterol/HDL Ratio 2 Lipase ECG Additional Comments: EKG biventricular paced rhythm
[2019-11-27 14:26] LABS: Estimated Average Glucose 126 mg/dl
[2019-11-28] MEDS: ALBUTEROL 0.083% NEBU SOLN 3 ML VIAL INH SCH ×2 (07:40→19:05)
[2019-11-28] MEDS: MUPIROCIN 2% OINT 22 GM TUBE EXT SCH ×2 (07:50→19:59)
[2019-11-28] MEDS: FLUTICASONE PROPIONATE NA SPR 16 GM BTL SCH (07:50)
[2019-11-28] MEDS: METOPROLOL TARTRATE 25 MG TAB PO SCH ×2 (07:51→19:58)
[2019-11-28] MEDS: FLUTICASONE/VILANTEROL 200/25MCG 14 PUFFS/INHALER INH SCH (07:51)
[2019-11-28] MEDS: GABAPENTIN 100 MG CAP PO PRN (07:51)
[2019-11-28] MEDS: SPIRONOLACTONE 25 MG TAB PO SCH (07:52)
[2019-11-28] MEDS: VITAMIN B COMPLEX TAB PO SCH (07:52)
[2019-11-28] MEDS: ASPIRIN 81 MG ECTAB PO SCH (07:52)
[2019-11-28] MEDS: CHOLECALCIFEROL 1,000 UNITS 25 MCG TAB PO SCH (07:52)
[2019-11-28] MEDS: allopurinoL 300 MG TAB PO SCH (07:53)
[2019-11-28] MEDS: PANTOprazole 40 MG TAB PO SCH ×2 (07:53→19:56)
[2019-11-28] MEDS: LOSARTAN POTASSIUM 50 MG TAB PO SCH (07:53)
[2019-11-28] MEDS: FERROUS SULFATE 325 MG TAB PO SCH (07:53)
[2019-11-28] MEDS: OMEGA-3 (PURIFIED FISH OIL) 1 GM CAP PO SCH (07:53)
[2019-11-28] MEDS: TOBRAMYCIN/DEXAMETHASONE OPH SUSP 2.5 ML BTL OT SCH ×2 (07:54→19:59)
[2019-11-28] MEDS: FUROSEMIDE 40 MG in SYRINGE 0 ML IV SCH ×2 (09:19→17:50)
[2019-11-28 09:52] LABS: Hematocrit (blood only) 37.5 % (42-52); Hemoglobin 12.1 g/dL (14.0-18.0); Mean Corpuscular Hemoglobin 30.3 pg (25-34); Mean Corpuscular Hgb Conc 32.3 g/dL (32-36); Mean Platelet Volume 10.9 fL (7.4-10.4); Platelet Count 251 K/uL (130-400); RDW Coefficient of Variation 15.5 % (11.5-14.5); RDW Standard Deviation 52.7 fL (36.4-46.3); Red Blood Count 3.99 M/uL (4.7-6.1); White Blood Count 6.56 K/uL (4.8-10.8)
[2019-11-28 10:24] LABS: Albumin Level 2.9 gm/dl (3.4-5.0); BUN Creatinine Ratio 17.3 (10-20); Calcium 9.6 mg/dl (8.5-10.1); Creatinine Clr Calc Pharmacy 37.1 ml/min; Est GFR (African American) 38.5; Est GFR (Non-African American) 33.2; Potassium 3.8 mmol/L (3.5-5.1)
[2019-11-28 10:27] LABS: Albumin Globulin Ratio 0.5 (0.9-2); Bilirubin,Total 0.5 mg/dl (0.2-1); Globulin 6.3 gm/dl (2.5-4.0); Total Protein 9.2 gm/dl (6.4-8.2)
--- NOTE | 2019-11-28 13:07 | Cardiology Progress Note ---
Date of Service November 28, 2019 Assessment & Plan (1) Weight gain with edema: Male with longstanding history of hypertensive heart disease, ischemic heart disease and mixed systolic and diastolic heart failure complicated by chronic obstructive lung disease and severe obstructive sleep apnea. Patient the past has undergone AV junction ablation for uncontrolled atrial fibrillation and biventricular pacemaker insertion. Patient presents now with signs and symptoms of acute volume overload gradually trending upward of 20 to 30 pounds with weight gain over the past 3 months. Attempts to manage with outpatient oral regimen was not well-tolerated with patient developing hyponatremia and persistent weight gain Patient has responded to IV diuretics. Echocardiogram demonstrates chronic diastolic dysfunction with preserved LV systolic function and no critical valvular Recommendations: Would continue IV diuretics additional day discontinue Curtis begin mobilization ultimate goal with potential discharge in the next 24 to 48- hour (2) Chronic diastolic CHF (congestive heart failure): (3) Systolic and diastolic CHF, chronic: (4) Cor pulmonale: (5) SANDOR (obstructive sleep apnea): (6) Chronic renal insufficiency: Renal function and electrolytes stable on current therapies Admission and Anticipated Discharge Date Admission Date: November 26, 2019 Subjective Patient was seen and examined, chart, medications, telemetry reviewed. in room with patient Patient feels improved today has had substantial decrease in lower extremity edema and abdominal bloating. Still with moderate presacral edema Physical Exam Constitutional: + obese; no acute distress Eyes: PERRL, conjunctivae normal, anicteric sclerae ENMT: external ear and nose normal, oropharynx normal Neck: trachea midline, no thyromegaly + thick neck Cardiovascular: Rate/Rhythm: regular rate and regular rhythm (Biventricular paced) Heart Sounds: normal S1 and normal S2; no gallop and no murmur Palpation: normal PMI Vessels: normal carotid upstroke and radial pulses present; no carotid bruit Extremities: + edema (2+ extending to mid thigh) Chest (Breasts): Chest: + pacemaker Gastrointestinal (Abdomen): normal bowel sounds, soft, nontender, no hepatosp lenomegaly Musculoskeletal: no cyanosis or clubbing, extremities motor strength 5/5 Skin: no rashes, warm and dry Neurologic: PERRL, EOMI, accommodation nl, no face palsy, no dysarthria Psychiatric: A+Ox3, euthymic affect Results & Data ([facility]) Vital Signs (Past 12 Hours) Vital Signs Temp Pulse Resp BP Pulse Ox 11/28/19 11:28 36.7 C 71 18 115/73 94 11/28/19 07:41 72 18 95 11/28/19 07:27 36.6 C 70 18 139/75 92 11/28/19 04:05 36.8 C 68 20 157/79 H 92 Laboratory Results Laboratory Results - last 24 hr 11/27/19 11/28/19 11/28/19 06:41 09:28 09:28 WBC 6.56 RBC 3.99 L Hgb 12.1 L Hct 37.5 L MCV 94.0 MCH 30.3 MCHC 32.3 RDW Std Deviation 52.7 H RDW Coeff of Inez 15.5 H Plt Count 251 MPV 10.9 H Sodium Potassium Chloride Carbon Dioxide Anion Gap BUN Creatinine Est Cr Clr Drug Dosing Est GFR ( Amer) Est GFR (Non-Af Amer) BUN/Creatinine Ratio Glucose Estimat Average Glucose 126 Hemoglobin A1c 6.0 H Calcium Total Bilirubin AST ALT Alkaline Phosphatase Total Protein Total Protein (PEP) Pending Albumin Albumin (PEP) Pending Globulin Albumin/Globulin Ratio Kzmfs-0-Mczjsgbtw Pending Xnnpp-5-Gcdcicgyj Pending Jjzg-1-Kpqmwflh Pending Frtz-2-Zvdgffbz Pending Gamma Globulins Pending Monoclonal Peak 3 Pending Ser Monoclonl Protein Pending Ser Monoclonal Prot 2 Pending PEP Interpretation Pending 11/28/19 09:28 WBC RBC Hgb Hct MCV MCH MCHC RDW Std Deviation RDW Coeff of Inez Plt Count MPV Sodium 136 Potassium 3.8 Chloride 97 L Carbon Dioxide 31 Anion Gap 8.0 BUN 32 H Creatinine 1.86 H Est Cr Clr Drug Dosing 37.1 Est GFR ( Amer) 38.5 Est GFR (Non-Af Amer) 33.2 BUN/Creatinine Ratio 17.3 Glucose 150 H Estimat Average Glucose Hemoglobin A1c Calcium 9.6 Total Bilirubin 0.5 AST 18 ALT 22 Alkaline Phosphatase 100 Total Protein 9.2 H Total Protein (PEP) Albumin 2.9 L Albumin (PEP) Globulin 6.3 H Albumin/Globulin Ratio 0.5 L Zexxz-8-Amsvxzbxz Kxhyy-7-Knkbnxrkl Bztg-1-Iuziauam Zxqh-4-Ruzyorua Gamma Globulins Monoclonal Peak 3 Ser Monoclonl Protein Ser Monoclonal Prot 2 PEP Interpretation
[2019-11-28] MEDS: SIMVASTATIN 10 MG TAB PO SCH (19:57)
[2019-11-28] MEDS: SPIRONOLACTONE 12.5 MG TAB PO SCH (19:57)
[2019-11-28] MEDS: RIVAROXABAN 15 MG TAB PO SCH (19:57)
[2019-11-28] MEDS: TRAVOPROST Z 0.004% OPH SOLN 2.5 ML BTL OPB SCH (19:59)
--- NOTE | 2019-11-28 23:13 | Hospitalist Progress Note ---
Date of Service November 28, 2019 Assessment & Plan (1) Acute on chronic diastolic (congestive) heart failure: Clinically improving with IV lasix BID. Dry weight ~240 pounds. Daily BMP. Echo findings noted. RV function wnl. Systolic function wnl. [facility]. Continue diuresis. Continue metoprolol. 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 (3) Gout: Continue allopurinol prophylaxis. No flares at this time. (4) Morbid obesity: BMI low 40s (5) Chronic kidney disease, stage 3a: baseline Cr 1.7 to 1.9. BMP in am. (6) Status cardiac pacemaker: with prior h/o AV node ablation thus pacer dependent. pacing on monitor / stable. (7) DM II (diabetes mellitus, type II), controlled: a1c 6% pre-DM simply follow glucoses on BMP, etc T2DM diet (8) Afib: history of such. now pacer dependent; h/o AV node ablation. continue xarelto for stroke prevention. (9) COPD (chronic obstructive pulmonary disease): without exacerbation at this time. continue usual home meds. (10) Hypertension: continue home meds. controlled. (11) Hyperlipidemia: continue statin daily. (12) Coronary artery disease: No ischemic symptoms. Continue asa, beta gonsalo, statin, ARB. (13) High globulin level: with high total protein level. SPEP/UPEP ordered -- r/o plasma cell disorder (MM, Waldonstrom's, etc). (14) DVT prophylaxis: xarelto daily updated order PT consult Admission and Anticipated Discharge Date Admission Date: November 26, 2019 Subjective patient feeling better today. less LE edema, less dyspnea. eating well - 100% of meals. home CPAP was brought by . tele - paced overnight. no new complaints. states baseline dry weight is about 240 pounds. Review of Systems Constitutional: no fever Respiratory: no cough Cardiovascular: no chest pain Gastrointestinal: no abdominal pain Physical Exam Constitutional: + morbidly obese; no acute distress and no altered mental status ENMT: external ear and nose normal, oropharynx normal Respiratory: no respiratory distress Auscultation: + crackles (fine, bases ); no wheezes Cardiovascular: Rate/Rhythm: regular rate and regular rhythm Heart Sounds: normal S1 and normal S2 Vessels: + JVD (suspected ), posterior tibial pulses present and dorsalis pedis pulses present Extremities: + edema (1-2+ b/l ) Gastrointestinal (Abdomen): normal bowel sounds, soft, nontender, no hepatosplenomegaly Psychiatric: A+Ox3, euthymic affect Results & Data Results & Data ([facility]) Vital Signs (Past 12 Hours) Vital Signs Temp Pulse Pulse Resp BP Pulse Ox 11/28/19 22:42 37.2 C 70 18 144/76 H 92 11/28/19 19:56 36.8 C 70 18 135/79 91 11/28/19 19:06 68 20 95 11/28/19 16:04 36.3 C L 72 18 129/70 95 11/28/19 15:57 70 11/28/19 13:33 70 11/28/19 11:28 36.7 C 71 18 115/73 94 Laboratory Results Laboratory Results - last 24 hr 11/28/19 11/28/19 11/28/19 09:28 09:28 09:28 WBC 6.56 RBC 3.99 L Hgb 12.1 L Hct 37.5 L MCV 94.0 MCH 30.3 MCHC 32.3 RDW Std Deviation 52.7 H RDW Coeff of Inez 15.5 H Plt Count 251 MPV 10.9 H Sodium 136 Potassium 3.8 Chloride 97 L Carbon Dioxide 31 Anion Gap 8.0 BUN 32 H Creatinine 1.86 H Est Cr Clr Drug Dosing 37.1 Est GFR ( Amer) 38.5 Est GFR (Non-Af Amer) 33.2 BUN/Creatinine Ratio 17.3 Glucose 150 H Calcium 9.6 Total Bilirubin 0.5 AST 18 ALT 22 Alkaline Phosphatase 100 Total Protein 9.2 H Total Protein (PEP) Pending Albumin 2.9 L Albumin (PEP) Pending Globulin 6.3 H Albumin/Globulin Ratio 0.5 L Omllz-5-Kyuowfoya Pending Xswfh-2-Qjltrraoc Pending Hrqb-9-Pwtcxlel Pending Ctpi-3-Lvskkzwg Pending Gamma Globulins Pending Monoclonal Peak 3 Pending Ser Monoclonl Protein Pending Ser Monoclonal Prot 2 Pending PEP Interpretation Pending Ur Creatinine 24 Hour Ur Total Protein 24 Hr Protein/Creat Ratio 24h Urine Albumin (%) U Njuwk-0-Zeqasied (%) U Bqqbv-6-Oorkmubs (%) U Beta Globulin (%) U Gamma Globulin (%) U Abnormal Prot Band 1 U Abnormal Prot Band 2 U Abnormal Prot Band 3 Urine PEP Interpret 11/28/19 15:00 WBC RBC Hgb Hct MCV MCH MCHC RDW Std Deviation RDW Coeff of Inez Plt Count MPV Sodium Potassium Chloride Carbon Dioxide Anion Gap BUN Creatinine Est Cr Clr Drug Dosing Est GFR ( Amer) Est GFR (Non-Af Amer) BUN/Creatinine Ratio Glucose Calcium Total Bilirubin AST ALT Alkaline Phosphatase Total Protein Total Protein (PEP) Albumin Albumin (PEP) Globulin Albumin/Globulin Ratio Vrbft-0-Zvlnqgvbp Lapmr-4-Tjvvjvxcb Qypy-2-Nogjtoae Anqg-6-Wwgdgoqm Gamma Globulins Monoclonal Peak 3 Ser Monoclonl Protein Ser Monoclonal Prot 2 PEP Interpretation Ur Creatinine 24 Hour Pending Ur Total Protein 24 Hr Pending Protein/Creat Ratio 24h Pending Urine Albumin (%) Pending U Bunch-2-Ywmougwy (%) Pending U Buuua-8-Leyqjlya (%) Pending U Beta Globulin (%) Pending U Gamma Globulin (%) Pending U Abnormal Prot Band 1 Pending U Abnormal Prot Band 2 Pending U Abnormal Prot Band 3 Pending Urine PEP Interpret Pending PG Care Time/CCT Total # of Minutes Spent Total Time Spent with Patient: Total time spent is greater than 50% in coordination of care (as documented) at patient's floor/unit and/or counseling patient: Coding Level of Care Code 48252 Subseq Hosp Care Lvl 2 Diagnoses Acute on chronic diastolic (congestive) heart failure I50.33 Complex sleep apnea syndrome G47.31 Gout [id number].[id number] Gout site: unspecified site Gout etiology: unspecified cause Chronicity: chronic Presence of tophus: without tophus Morbid obesity E66.01 Chronic kidney disease, stage 3a N18.3 Status cardiac pacemaker Z95.0 DM II (diabetes mellitus, type II), controlled E11.9 Diabetes mellitus assisted insulin use: without assisted use Diabetes mellitus complication status: without complication Afib I48.2 Atrial fibrillation type: chronic COPD (chronic obstructive pulmonary disease) J44.9 COPD type: unspecified COPD Hypertension I10 Hypertension type: essential hypertension Hyperlipidemia E78.2 Hyperlipidemia type: mixed hyperlipidemia Coronary artery disease I25.10 Coronary Disease-Associated Artery/Lesion type: [place] artery [place] vs. transplanted heart: [place] heart Associated angina: without angina High globulin level R77.1 DVT prophylaxis Z29.9 (1) Gout Gout site: unspecified site Gout etiology: unspecified cause Chronicity: chronic Presence of tophus: without tophus Qualified Code(s): [id number].[id number] - Chronic gout, unspecified, without tophus (tophi) (2) DM II (diabetes mellitus, type II), controlled Diabetes mellitus assisted insulin use: without equipment operator intermodal yard use Diabetes mellitus complication status: without complication Qualified Code(s): E11.9 - Type 2 diabetes mellitus without complications (3) Afib Atrial fibrillation type: chronic Qualified Code(s): I48.2 - Chronic atrial fibrillation (4) COPD (chronic obstructive pulmonary disease) COPD type: unspecified COPD Qualified Code(s): J44.9 - Chronic obstructive pulmonary disease, unspecified (5) Hypertension Hypertension type: essential hypertension Qualified Code(s): I10 - Essential (primary) hypertension (6) Hyperlipidemia Hyperlipidemia type: mixed hyperlipidemia Qualified Code(s): E78.2 - Mixed hyperlipidemia (7) Coronary artery disease Coronary Disease-Associated Artery/Lesion type: [place] artery [place] vs. transplanted heart: [place] heart Associated angina: without angina Qualified Code(s): I25.10 - Atherosclerotic heart disease of [place] coronary artery without angina pectoris
[2019-11-29 07:21] LABS: BUN Creatinine Ratio 18.3 (10-20); Creatinine Clr Calc Pharmacy 31.6 ml/min; Est GFR (African American) 31.9; Est GFR (Non-African American) 27.5; Potassium 4.2 mmol/L (3.5-5.1)
[2019-11-29] MEDS: ALBUTEROL 0.083% NEBU SOLN 3 ML VIAL INH SCH (07:24)
[2019-11-29] MEDS: OMEGA-3 (PURIFIED FISH OIL) 1 GM CAP PO SCH (08:46)
[2019-11-29] MEDS: CHOLECALCIFEROL 1,000 UNITS 25 MCG TAB PO SCH (08:46)
[2019-11-29] MEDS: VITAMIN B COMPLEX TAB PO SCH (08:47)
[2019-11-29] MEDS: ASPIRIN 81 MG ECTAB PO SCH (08:47)
[2019-11-29] MEDS: FERROUS SULFATE 325 MG TAB PO SCH (08:47)
[2019-11-29] MEDS: METOPROLOL TARTRATE 25 MG TAB PO SCH (08:47)
[2019-11-29] MEDS: FLUTICASONE PROPIONATE NA SPR 16 GM BTL SCH (08:48)
[2019-11-29] MEDS: FUROSEMIDE 40 MG in SYRINGE 0 ML IV SCH (08:49)
[2019-11-29] MEDS: FLUTICASONE/VILANTEROL 200/25MCG 14 PUFFS/INHALER INH SCH (08:49)
[2019-11-29] MEDS: TOBRAMYCIN/DEXAMETHASONE OPH SUSP 2.5 ML BTL OT SCH ×2 (08:50→08:56)
[2019-11-29] MEDS: allopurinoL 300 MG TAB PO SCH (08:51)
[2019-11-29] MEDS: PANTOprazole 40 MG TAB PO SCH (08:51)
[2019-11-29] MEDS: MUPIROCIN 2% OINT 22 GM TUBE EXT SCH (08:54)
--- NOTE | 2019-11-29 09:53 | Cardiology Progress Note ---
Date of Service November 29, 2019 Assessment & Plan (1) Weight gain with edema: Male with longstanding history of hypertensive heart disease, ischemic heart disease and mixed systolic and diastolic heart failure complicated by chronic obstructive lung disease and severe obstructive sleep apnea. Patient the past has undergone AV junction ablation for uncontrolled atrial fibrillation and biventricular pacemaker insertion. Patient presents now with signs and symptoms of acute volume overload gradually trending upward of 20 to 30 pounds with weight gain over the past 3 months. Attempts to manage with outpatient oral regimen was not well-tolerated with patient developing hyponatremia and persistent weight gain Patient has responded to IV diuretics with slight decline in renal function. Functional capacity significantly improved Plan: Discontinue Curtis and ambulate assess ability to urinate . May discharge to home today with plan to follow-up with [facility] heart failure clinic in the next weeks time with BMP (arrangements being made) Increased furosemide p.o. 80 mg a.m. 40 mg p.m. on discharge Emphasize CHF instructions daily weights (2) Chronic diastolic CHF (congestive heart failure): (3) Systolic and diastolic CHF, chronic: (4) Cor pulmonale: (5) SANDOR (obstructive sleep apnea): (6) Chronic renal insufficiency: Admission and Anticipated Discharge Date Admission Date: November 26, 2019 Subjective Patient was seen and examined, chart, medications, telemetry reviewed. Lower extremity edema improved abdomen distention much improved. Weight down at least 4 kg. No dizziness or lightheadedness. No arrhythmias on telemetry Physical Exam Constitutional: + obese; no acute distress Eyes: PERRL, conjunctivae normal, anicteric sclerae ENMT: external ear and nose normal, oropharynx normal Neck: trachea midline, no thyromegaly + thick neck Cardiovascular: Rate/Rhythm: regular rate and regular rhythm (Biventricular paced) Heart Sounds: normal S1 and normal S2; no gallop and no murmur Palpation: normal PMI Vessels: normal carotid upstroke and radial pulses present; no carotid bruit Extremities: + edema (2+ extending to mid thigh) Chest (Breasts): Chest: + pacemaker Gastrointestinal (Abdomen): normal bowel sounds, soft, nontender, no hepatosplenomegaly Musculoskeletal: no cyanosis or clubbing, extremities motor strength 5/5 Skin: no rashes, warm and dry Neurologic: PERRL, EOMI, accommodation nl, no face palsy, no dysarthria Psychiatric: A+Ox3, euthymic affect Results & Data ([facility]) Vital Signs (Past 12 Hours) Vital Signs Temp Pulse Pulse Resp BP Pulse Ox 11/29/19 07:48 36.6 C 68 22 113/71 95 11/29/19 07:36 70 11/29/19 07:25 77 20 96 11/29/19 04:00 36.8 C 70 18 111/74 95 11/29/19 00:00 70 11/28/19 22:42 37.2 C 70 18 144/76 H 92 Laboratory Results Laboratory Results - last 24 hr 11/28/19 11/28/19 11/29/19 09:28 15:00 06:17 Sodium 136 134 L Potassium 3.8 4.2 Chloride 97 L 97 L Carbon Dioxide 31 31 Anion Gap 8.0 6.0 BUN 32 H 40 H Creatinine 1.86 H 2.17 H D Est Cr Clr Drug Dosing 37.1 31.6 Est GFR ( Amer) 38.5 31.9 Est GFR (Non-Af Amer) 33.2 27.5 BUN/Creatinine Ratio 17.3 18.3 Glucose 150 H 107 H Calcium 9.6 10.0 Total Bilirubin 0.5 AST 18 ALT 22 Alkaline Phosphatase 100 Total Protein 9.2 H Albumin 2.9 L Globulin 6.3 H Albumin/Globulin Ratio 0.5 L Ur Creatinine 24 Hour Pending Ur Total Protein 24 Hr Pending Protein/Creat Ratio 24h Pending Urine Albumin (%) Pending U Ettox-5-Yqirfrvu (%) Pending U Acyus-2-Vjayctao (%) Pending U Beta Globulin (%) Pending U Gamma Globulin (%) Pending U Abnormal Prot Band 1 Pending U Abnormal Prot Band 2 Pending U Abnormal Prot Band 3 Pending Urine PEP Interpret Pending (1) Chronic renal insufficiency Chronic kidney disease stage: unspecified stage Qualified Code(s): N18.9 - Chronic kidney disease, unspecified
--- NOTE | 2019-11-29 14:19 | Discharge Summary ---
Date of Service date of admission - November 26, 2019 date of discharge - November 29, 2019 Admission HPI Per Admitting Provider This is a 79 yo M with PMHx of HTN, HLD, CAD, chronic diastolic and systolic CHF, afib on xarelto, cardiac pacemaker, COPD, SANDOR on CPAP, DM type II, CKD stage III, peripheral neuropathy, gout who presents after being instructed from Dr. Parson's office, cardiology, that he is significantly volume overloaded and not responding to outpatient diuretics. He presents here although he reports he feels very well. Denies any specific complaints regarding chest pain, palpitations, shortness of breath, dyspnea on exertion. He does admit to having orthopnea and must sleep in a raised position, and that he does feel significantly winded with minimal exertion. He can no longer get his compression stockings on his legs due to the amount of swelling in his feet and legs. He does try to keep his feet elevated but reports that he cannot stand to be lying back due to shortness of breath. He reports that his normally helps him with attempting to massage his legs to reduce the amount of swelling. 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 He does not limit the amount of fluid he's consuming, and drinks about The patient was referred by Dr. Parson, [facility] cardiology due to 30 pounds of increased weight over the past month. Principal Diagnosis acute/chronic diastolic CHF Discharge Exam Constitutional + morbidly obese; no acute distress and no altered mental status ENMT external ear and nose normal, oropharynx normal Respiratory no respiratory distress Auscultation: no crackles and no wheezes Cardiovascular Rate/Rhythm: regular rate and regular rhythm Heart Sounds: normal S1 and normal S2 Vessels: posterior tibial pulses present and dorsalis pedis pulses present; no JVD Extremities: + edema (1+ b/l shins; 1-2+ b/l feet ) Gastrointestinal (Abdomen) normal bowel sounds, soft, nontender, no hepatosplenomegaly Psychiatric A+Ox3, euthymic affect Discharge Data Allergies Allergy/AdvReac Type Severity Reaction Status Date / Time No Known Drug Allergies Allergy Unknown Verified 11/26/19 14:02 Consultations [facility] Cardiology PT, OT Procedures Performed Echocardiogram: * moderate LVH * apical wall motion abnormality may reflect pacemaker activation * ejection fraction 60-65% * aortic valve sclerosis without significant aortic valvular stenosis * mild mitral annular calcification * trace mitral regurgitation * normal RV function Hospital Course (1) Acute on chronic diastolic (congestive) heart failure: The patient diuresed very well during his stay with a net weight loss of 7kg. He was seen in consult by [facility] Cardiology who provided lin recommendations for his care. Echocardiogram was performed showing intact LV and RV function. Thus, his acute/chronic congestive heart failure was 2nd to diastolic dysfunction in the setting of CKD stage 3. O2 sats remained stable during his entire stay. He will take lasix 80mg qam and 40mg qafternoon after discharge along with metoprolol 25mg qam and 25mg qhs. Aldactone 25mg qam and 12.5mg qhs will be continued. Losartan was placed ON HOLD due to rise in creatinine to 2.1 on day of discharge. Hopefully this can be continued shortly after discharge. Mr Mane will have follow-up with the [facility] CHF clinic within 1 week of discharge. He was counseled that he should continue with daily weights, fluid and salt restriction, and to not wait to call his providers if he begins to see rapid weight gain at home. (2) Complex sleep apnea syndrome: Continue CPAP HS. (3) Gout: Continue allopurinol prophylaxis. No flares during the stay. (4) Morbid obesity: BMI low 40s (5) Chronic kidney disease, stage 3a: baseline Cr 1.7 to 1.9. Cr at discharge 2.1. (6) Status cardiac pacemaker: with prior h/o AV node ablation thus pacer dependent. pacing on monitor throughout the stay. (7) DM II (diabetes mellitus, type II), controlled: a1c 6% pre-DM controlled (8) Afib: history of such. now pacer dependent; h/o AV node ablation. continue xarelto for stroke prevention. (9) COPD (chronic obstructive pulmonary disease): without exacerbation during this stay. continue usual home meds. (10) Hypertension: continue home meds. controlled. (11) Hyperlipidemia: continue statin daily. (12) Coronary artery disease: No ischemic symptoms while here or prior to his hospitalization. Continue asa, beta gonsalo, statin. ARB placed on hold at time of discharge due to rise in creatinine to 2.1. Hopefully can resume ARB as outpatient if creatinine returns to baseline . (13) High globulin level: With high total protein level. SPEP/UPEP ordered -- r/o plasma cell disorder (MM, Waldonstrom's, etc). Results were pending at time of discharge. Total Time Total Time Spent Total Time Spent (In Minutes): 35 Total Time Includes: Examination of the Patient, Discharge Planning and Medication Reconciliation Discharge Plan Discharge Items Patient Disposition: Home - Self-Care Reason For Visit: Severe Fluid Retention/Fluid weight gain Discharge Diagnosis: Uncontrolled congestive heart failure leading to severe fluid retention and weight gain - MUCH improved. Activity: Resume your previous activity Non-emergency contact: Primary Care Provider and Credit Card Interviewer Call non-emergency contact if: you have any medication questions, your symptoms worsen and you have a fever Follow-up/Referrals: Ken Worthington MD [Primary Care Provider] - 12/06/19 11:30 am (You are scheudled to see Argelia Parsons NP. If you cannot make this appointment, please call the office to reschedule.) Jordan Parson MD [Physician] - (see Dr Parson or Rajinder Stauffer in the [facility] CHF clinic within 1 week ) Diet: Low Sodium (2gm) Fluids: 1800ml (7 cups) Addtl Attending Provider Instructions: You were treated for fluid weight gain due to your congestive heart failure. You improved significantly with the IV lasix. Your fluid in your legs and your breathing all improved. Dr Parson from [facility] Cardiology recommends that you take your lasix (furosemide) water pill as follows - * 80mg every MORNING * 40mg every AFTERNOON AT 4pm Weigh yourself every morning upon awakening. Write the weights down in a notebook. If you see weight gains of more than 2-3 pounds in 1-2 days this is likely fluid from congestive heart failure. Watch your salt intake. Limit it to 2000mg in 24 hours. Watch your total fluid intake. Limit it to 1800cc in 24 hours. Follow-up with Dr Parson or one of his associates (Rajinder Stauffer, etc) at [facility] CHF clinic within 1 week. You will need repeat blood work when you see them. Return to [facility] if -- * you have fever over 100 degrees * you have worsening shortness of breath * you have chest pains * you have severe fluid weight gain and can't breath * any other concerns Addtl Cap Inspector Provider Instructions: Congestive Heart Failure Instructions -- Call 911 and go to the Emergency Room if: * You have tightness or pain in your chest that does not go away with rest or Nitroglycerin * You are very short of breath even with rest Call your doctor if any of the following symptoms or problems start or get worse: * Shortness of breath or difficulty breathing * Wake up at night short of breath * Chest pain * Cough * Swelling of your hands, fee, or legs * More fatigued or tired with your normal activity * Palpitations - sudden fast heart beats WEIGHT * Weigh yourself every morning after using the bathroom. * Use the same scale. * Wear the same amount of clothing. * Write your weight down on your chart. * Call your doctors if you gain more than 2-3 pounds in 1-2 days. This is typically a sign of fluid retention. Do not wait - please call right away. If we catch the weight gain early we can hopefully prevent a hospital stay. MEDICATIONS * Use this discharge instruction sheet for instructions. * Take your medications at the time your doctor ordered. * Do not skip a dose of your medicines. * If you miss a dose of medicine, take as soon as possible, but DO NOT DOUBLE A DOSE. * Read your medicine information when you get home. * Know all of the side effects of your medicine. * Call your doctor's office if you have any side effects. * Be sure all of your doctors know what medicine and herbs you take (including cold, flu, and herbal medicine). * Pain Medicine: If you do not get relief from your pain, please call your doctor for help. Take the following with you to your follow-up doctor appointments: * Weight Chart * Medication List * List of questions Do not drink excessive alcohol, beer or wine. Pending Studies at Discharge: No Stand-Alone Forms: My [employer], Smoking Cessation Medications and DC Order Prescriptions: Continued ipratropium-albuterol 0.5 mg-3 mg(2.5 mg base)/3 mL Solution For Nebulization 3 ml INHALATION Q4H PRN (Reason: Shortness Of Breath) Qty: 0 RF: 0 aspirin 81 mg Tablet,Delayed Release (Dr/Ec) 81 mg PO QAM Qty: 0 RF: 0 albuterol sulfate 2.5 mg /3 mL (0.083 %) Solution For Nebulization 2.5 mg INHALATION BID Qty: 0 RF: 0 metoprolol tartrate 25 mg Tablet 25 mg PO QAM Qty: 0 RF: 0 ferrous sulfate 325 mg (65 mg iron) Tablet 325 mg PO QAM Qty: 0 RF: 0 fluticasone propionate [Flonase Allergy Relief] 50 mcg/actuation spray,suspension 2 spray INTRANASAL QAM Qty: 18.2 RF: 5 spironolactone 25 mg tablet 12.5 mg PO HS Qty: 45 RF: 3 omeprazole 20 mg capsule,delayed release(DR/EC) 20 mg PO BID Qty: 180 RF: 3 fluticasone propion-salmeterol [Advair Diskus] 500-50 mcg/dose blister with device 1 puffs INH BID Qty: 60 RF: 3 mupirocin 2 % ointment 1 appln TOP BID Qty: 30 RF: 1 travoprost 0.004 % drops 1 drp OPB HS RF: 0 gabapentin 100 mg capsule 100 mg PO .COMPLEX Qty: 90 RF: 5 albuterol sulfate 90 mcg/actuation HFA aerosol inhaler 2 puffs INH Q6H PRN (Reason: shortness of breath or wheezing) Qty: 18 RF: 3 azelastine 0.15 % (205.5 mcg) spray,non-aerosol 1 sprays INTNAS BID Qty: 30 RF: 5 tobramycin-dexamethasone [TobraDex] 0.3-0.1 % drops,suspension See Rx Instructions OP .COMPLEX Qty: 10 RF: 1 vitamin B complex tablet 1 tab PO QAM RF: 0 nitroglycerin [Nitrostat] 0.4 mg tablet, sublingual 0.4 mg Sublingual PRN PRN (Reason: chest pain) Qty: 15 RF: 0 metoprolol tartrate 25 mg Tablet 12.5 mg PO HS RF: 0 cholecalciferol (vitamin D3) [Vitamin D3] 1,000 unit Tablet 2,000 unit PO QAM Qty: 60 RF: 0 simvastatin 10 mg tablet 10 mg PO HS RF: 0 spironolactone 25 mg tablet 25 mg PO QAM RF: 0 ofloxacin 0.3 % drops 5 drp OTL BID RF: 0 allopurinol 300 mg tablet 300 mg PO QAM RF: 0 omega 5-xte-ecp-fish oil [Fish Oil] 1,000 mg (120 mg-180 mg) capsule 1 cap PO QAM RF: 0 Xarelto 15 mg tablet 15 mg PO HS RF: 0 Changed furosemide 40 mg tablet See Rx Instructions .ROUTE .COMPLEX Qty: 0 RF: 0 Discontinued losartan 50 mg tablet 50 mg PO QAM RF: 0 Discharge Orders: Discharge Order (Routine); Ordered 11/29/19 Ordered By: Ken Dillon Admission Data Admit Date/Time: 11/26/19 15:10 Attending Provider: Ken Dillon Admit Provider: Aftab King Primary Care Provider: Ken Worthington Other Providers: Aftab King ; Jordan Parson Other Interventions: Discharge Summary Assessment (RN) Last Done: 11/29/19 14:24 Coding Level of Care Code D/C Day Management >30 mins Diagnoses Acute on chronic diastolic (congestive) heart failure I50.33 Complex sleep apnea syndrome G47.31 Gout [id number] Chronicity: chronic Gout etiology: unspecified cause Gout site: unspecified site Presence of tophus: without tophus Morbid obesity E66.01 Chronic kidney disease, stage 3a N18.3 Status cardiac pacemaker Z95.0 DM II (diabetes mellitus, type II), controlled E11.9 Diabetes mellitus complication status: without complication Diabetes mellitus termite inspector insulin use: without retirement use Afib I48.2 Atrial fibrillation type: chronic COPD (chronic obstructive pulmonary disease) J44.9 COPD type: unspecified COPD Hypertension I10 Hypertension type: essential hypertension Hyperlipidemia E78.2 Hyperlipidemia type: mixed hyperlipidemia Coronary artery disease I25.10 Associated angina: without angina Coronary Disease-Associated Artery/Lesion type: [place] artery [place] vs. transplanted heart: [place] heart High globulin level R77.1
[2019-12-02 08:31] LABS: Albumin 3.3 g/dL (3.8-4.8); Alpha 1 Globulin 0.4 g/dL (0.2-0.3); Beta-1-Globulin 0.3 g/dL (0.4-0.6); Beta-2-Globulin 3.5 g/dL (0.2-0.5); Gamma Globulin 0.3 g/dL (0.8-1.7); Monoclonal Protein Band 1 3.4 g/dL (NONE DETECTED); Monoclonal Protein Band 2 DNR g/dL (NONE DETECTED); Monoclonal Protein Band 3 DNR g/dL (NONE DETECTED); Total Protein 8.7 g/dL (6.1-8.1)
[2019-12-04 07:17] LABS: Abnormal Protein Band 1 179 mg/24 h (NONE DETECTED); Abnormal Protein Band 2 51 mg/24 h (NONE DETECTED); Abnormal Protein Band 3 101 mg/24 h (NONE DETECTED); Protein, Urine 24 Hour 1202 mg/24 h (<150); Ur Protein/Creatinine Rat mg/g 1000 mg/g creat (< OR = 114)
== END 2019-11-29 15:00 | disposition home or self-care (01) | DRG 292 ==
LOC: ED 12:31 → 2N 15:10 → SUATTDRO 15:10 → 2N 22:15

== ENCOUNTER 2020-08-21 12:29 | Observation (INO) ==
[2020-08-21 13:22] LABS: Appearance Urine Clear (Clear); Bilirubin Urine Negative (Negative); Blood Urine Negative (Negative); Color Urine Yellow; Glucose Urine UA Negative (Negative); Ketones Urine Negative (Negative); Leukocyte Esterase Urine Negative (Negative); Nitrite Urine Negative (Negative); Protein Urine Negative (Negative); Specific Gravity Urine 1.012 (1.000-1.030); Urobilinogen Urine Negative (Negative)
[2020-08-21 13:31] LABS: INR 1.2 (0.9-1.1); Partial Thromboplastin Ratio 1.3; Partial Thromboplastin Time 34.9 Seconds (21.0-31.0); Prothrombin Time 12.4 Seconds (9.0-12.0)
--- NOTE | 2020-08-21 13:38 | Emergency Department Note ---
Impression & Plan Acute on chronic diastolic (congestive) heart failure, COPD (chronic obstructive pulmonary disease), Chronic hypoxemic respiratory failure, Afib, Status cardiac pacemaker, Chronic renal insufficiency ED Provider Note NAME: JOHN ACUÑA AGE: 80 SEX: M ARRIVES VIA: Walk-In INFORMANT: patient ED PROVIDER(S): Tim Swanson MD CHIEF COMPLAINT: Edema PLAN: Disposition: Admit MEDICAL DECISION MAKING: The patient is a pleasant 80-year-old gentleman with a past medical history of chronic diastolic heart failure, cor pulmonale, SANDOR, CKD who presents to the emergency department referred referred from pcp visit for evaluation of worsening edema over the past week and admission for IV diuresis. The patient reports taking his medications as prescribed and additional prn dose of his lasix without improvement in edema. He reports mild sob from baseline. He denies cough, fevers, n/v/d, urinary symptoms. On arrival the patient is chronically ill appearing but in NAD, AFVSS. He appears hypervolemic with 4+ BLE pitting edema bilaterally. 1cm superficial venous ulcer of the right distal pretibial region. Anasarca. Lungs diminished at the bases. EKG is V-paced without overt acute ischemia. CXR with pulmonary vascular congestion and interstitial coarsening suggestive of pulmonary edema. Nonspecific bibasilar densities noted. WBC and platelets wnl. H/H similar to prior values. Chemistry without acidosis. Cr. 1.8 increased from recent but within range of prior values. Electrolytes unremarkable. LFTs without significant abnormality. Troponin negative/undetectable. BNP 1900 improved from prior. UA without convincing evidence of infection. Covid-19 PCR negative. Lasix ordered. Patient agrees with plan for admission. Resident, Dr. Burnham, discussed case with Dr. Dillon, [facility] hospitalist, and Kumar Michaels [facility] RN CARDIOVASCULAR ICU who will evaluate the patient for admission. This patient was managed with the assistance of resident, Dr. Clarisse Burnham. I discussed the case with the resident, examined the patient, and confirm the findings and plan as documented in this note. Triage Nursing notes reviewed and agree them. prior medical records reviewed Vital Signs: reviewed and remarkable for no significant abnormalities Differential diagnosis: Cardiac ischemia, aortic dissection, pulmonary embolism, pneumothorax, pneumonia, pericarditis, myocarditis, esophageal rupture, GERD, cholecystitis, pancreatitis, musculoskeletal, as well as other pathologies. ER treatment provided: See below. Diagnostics interpreted by me: ECG: Ventricular paced rhythm, 70 bpm, no ectopy, no overt acute ischemia. Cardiac Monitoring: An order for continuous cardiac monitoring was placed and demonstrated ventricular paced rhythm, 70 bpm, no ectopy. Laboratory studies: See below Imaging studies: see below Consultation(s): Dr. Dillon, [facility] hospitalist, and Kumar Michaels [facility] RN CARDIOVASCULAR ICU who will evaluate the patient for admission. HPI: The patient is a pleasant 80-year-old gentleman with a past medical history of chronic diastolic heart failure, cor pulmonale, SANDOR, CKD who presents to the emergency department referred referred from pcp visit for evaluation of worseni ng edema over the past week and admission for IV diuresis. The patient reports taking his medications as prescribed and additional prn dose of his lasix without improvement in edema. He reports mild sob from baseline. He denies cough, fevers, n/v/d, urinary symptoms. ROS: See above HPI for pertinent positives & negatives. A total of 10 systems reviewed and were otherwise negative. PAST MEDICAL HISTORY: see Below PAST SURGICAL HISTORY:See Below FAMILY HISTORY:See Below SOCIAL HISTORY: see Below HOME MEDICATIONS: See Below ALLERGIES: see Below VITALS: See Below PHYSICAL EXAMINATION: GENERAL: Awake, alert, chronically ill-appearing, in no distress HENT: Normocephalic, atraumatic. Oropharynx unremarkable. EYES: Normal conjunctiva. Sclera non-icteric. NECK: Supple. No nuchal rigidity. FROM. No JVD. RESPIRATORY: Diminished at the bases. CARDIAC: Regular rate, normal rhythm. Extremities warm and well perfused. Pulses equal. ABDOMEN: Mild distension but soft. Anasarca. No tenderness to palpation. No rebound or guarding. No masses. RECTAL: Deferred. MUSCULOSKELETAL: Chest examination reveals no tenderness. The back is symmetrical on inspection without obvious abnormality. There is no CVA tenderness to palpation. No joint edema. LOWER EXTREMITIES: Calves are equal size bilaterally and non-tender. 4+ BLE pitting edema bilaterally. 1cm superficial venous ulcer of the right distal pretibial region. Discoloration c/w venous stasis, no overt erythema or warmth. NEURO: Normal sensorium. No sensory or motor deficits noted. SKIN: No rash or jaundice noted. Tim Swanson MD Past Med/Surg History Medical History Acquired deviated nasal septum Afib Clinton's palsy Chronic hypoxemic respiratory failure Chronic renal insufficiency Complex sleep apnea syndrome COPD (chronic obstructive pulmonary disease) Coronary artery disease DM II (diabetes mellitus, type II), controlled Gout History of heart attack Hx of fracture of pelvis Hyperlipidemia Neuropathy SANDOR (obstructive sleep apnea) nasal CPAP Surgical History History of cataract surgery History of coronary artery stent placement History of dental surgery History of right hip replacement History of tonsillectomy Hx of CABG triple vessel, 2012 Status cardiac pacemaker Family History Family/Other Coronary heart disease Cardiac disorder Hypertension Deafness Hearing loss Other Family history non-contributory Social History Smoking Status: Former smoker Years Smoked: 30; Hx Alcohol Use: No Hx Substance Use: No Preferred Language: Belgian Communication Ability: Effective Freight Rate 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 Required: No Beliefs That Will Affect Care: None marital status: marital status details: 2 daughters Current Living Situation: Spouse Current Living Situation Comment: Lives with current occupational status: retired Other Information That Helps Us Care for You: No 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: 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 Feels Safe at Home: Yes Safety Concerns: Feels Safe At This Time Assistive Devices: CPAP, Glasses, Hearing Aid - Left, Hearing Aid - Right and Walker Allergies Allergies Allergy/AdvReac Type Severity Reaction Status Date / Time No Known Drug Allergies Allergy Unknown Verified 08/21/20 16:30 Home Meds Home Medications Medication Instructions Recorded Confirmed aspirin 81 mg tablet,delayed 81 mg PO QAM #0 11/04/16 08/21/20 release ipratropium 0.5 mg-albuterol 3 mg 3 ml INHALATION Q4H PRN #0 inh 11/04/16 08/21/20 (2.5 mg base)/3 mL nebulization soln albuterol sulfate 2.5 mg INHALATION BID #0 dose 01/16/17 08/21/20 ferrous sulfate 325 mg (65 mg 325 mg PO QAM #0 03/21/17 08/21/20 iron) tablet vitamin B complex 1 tab PO QAM 10/18/18 08/21/20 travoprost 0.004 % eye drops 1 drp OPB HS 09/20/19 08/21/20 omega [id number]-jea-ssw-fish oil 1,000 mg 1 cap PO QAM 11/26/19 08/21/20 (120 mg-180 mg) capsule (Fish Oil) simvastatin 10 mg tablet 10 mg PO HS 11/26/19 08/21/20 spironolactone 25 mg tablet 12.5 - 25 mg PO DIRECTED 11/26/19 08/21/20 furosemide 40 mg tablet 80 mg PO QAM PRN tab 01/13/20 08/21/20 ofloxacin 0.3 % ear drops 5 drp OTL HS PRN 01/13/20 08/21/20 ascorbic acid (vitamin C) 1,000 mg 1 g PO QAM 08/21/20 08/21/20 tablet (Vitamin C) cephalexin 250 mg capsule 250 mg PO QID 08/21/20 08/21/20 gabapentin 100 mg capsule 100 - 300 mg PO HS 08/21/20 08/21/20 metoprolol tartrate 25 mg tablet 12.5 - 25 mg PO DIRECTED 08/21/20 08/21/20 rivaroxaban 15 mg tablet (Xarelto) 15 mg PO PM 08/21/20 08/21/20 tobramycin 0.3 %-dexamethasone 0.1 5 drp OPL DIRECTED 08/21/20 08/21/20 % eye drops,suspension zinc 50 mg tablet 50 mg PO QAM 08/21/20 08/21/20 Previous Rx's Medication Instructions Recorded cholecalciferol (vitamin D3) 25 2,000 unit PO QAM #60 tab 02/19/18 mcg (1,000 unit) tablet (Vitamin D3) azelastine 205.5 mcg (0.15 %) 1 spray INTNAS BID #30 ml 12/05/19 nasal spray fluticasone 500 mcg-salmeterol 50 1 inh INH BID #60 ea 01/10/20 mcg/dose blistr powdr for inhalation (Advair Diskus) mupirocin 2 % topical ointment 1 applic TOP BID #30 gm 04/30/20 nitroglycerin 0.4 mg sublingual 0.4 mg SUBLINGUAL PRN PRN #15 tab 06/23/20 tablet (Nitrostat) allopurinol 300 mg tablet 300 mg PO QAM #30 tab 06/30/20 fluticasone propionate 50 2 spray INTRANASAL QAM #18.2 ml 06/30/20 mcg/actuation nasal spray,suspension (Flonase Allergy Relief) omeprazole 20 mg capsule,delayed 20 mg PO BID #180 cap 07/15/20 release Results & Data (ED) Vital Signs Vital Signs - 24 hr 08/21/20 12:33 08/21/20 13:10 08/21/20 13:20 Temperature 36.4 C L Temperature Source Temporal Artery Scan Pulse Rate 70 70 Pulse Rate [Apical] Pulse Rate from SpO2 Sensor 70 Respiratory Rate 20 14 Respiratory Effort / Characteristics Non-Labored Spontaneous Short of Breath Respiratory Depth Normal Respiratory Pattern Regular Blood Pressure 129/55 L 132/73 Blood Pressure [Right Arm] Blood Pressure Mean 79 92 Blood Pressure Mean [Right Arm] Blood Pressure Position Sitting Pulse Oximetry 95 95 Oxygen Delivery Method Room Air Sepsis Recent Fever Within 48 Hours No Sepsis New/Unexplained Change in Mental Status N/A Sepsis Action Taken by Nursing No Action Required 08/21/20 13:31 08/21/20 14:00 08/21/20 14:30 Temperature Temperature Source Pulse Rate 70 70 70 Pulse Rate [Apical] Pulse Rate from SpO2 Sensor 70 70 69 Respiratory Rate 20 15 21 Respiratory Effort / Characteristics Respiratory Depth Respiratory Pattern Blood Pressure 132/66 140/79 139/75 Blood Pressure [Right Arm] Blood Pressure Mean 88 99 96 Blood Pressure Mean [Right Arm] Blood Pressure Position Pulse Oximetry 95 96 96 Oxygen Delivery Method Sepsis Recent Fever Within 48 Hours Sepsis New/Unexplained Change in Mental Status Sepsis Action Taken by Nursing 08/21/20 16:00 Temperature Temperature Source Pulse Rate Pulse Rate [Apical] 70 Pulse Rate from SpO2 Sensor Respiratory Rate 20 Respiratory Effort / Characteristics Non-Labored Respiratory Depth Normal Respiratory Pattern Blood Pressure Blood Pressure [Right Arm] 124/83 Blood Pressure Mean Blood Pressure Mean [Right Arm] 96 Blood Pressure Position Pulse Oximetry 94 Oxygen Delivery Method Room Air Sepsis Recent Fever Within 48 Hours Sepsis New/Unexplained Change in Mental Status Sepsis Action Taken by Nursing Laboratory Data Attestation: I reviewed the patient's lab results. Result diagrams: 08/21/20 13:57 08/21/20 13:57 Lab Results 07/16/21 07/16/21 07/16/21 Range/Units 13:10 13:10 13:10 WBC Cancelled RBC Cancelled Hgb Cancelled Hct Cancelled MCV Cancelled MCH Cancelled MCHC Cancelled RDW Std Deviation Cancelled RDW Coeff of Inez Cancelled Plt Count Cancelled MPV Cancelled Immature Gran % (Auto) Cancelled Neut % (Auto) Cancelled Lymph % (Auto) Cancelled [place] % (Auto) Cancelled Eos % (Auto) Cancelled Baso % (Auto) Cancelled Neut # (Auto) Cancelled Lymph # (Auto) Cancelled [place] # (Auto) Cancelled Eos # (Auto) Cancelled Baso # (Auto) Cancelled Immature Gran # (Auto) Cancelled Absolute Nucleated RBC Cancelled Nucleated RBC % (auto) Cancelled Neutrophils % (Manual) Cancelled Band Neutrophils % Cancelled Lymphocytes % (Manual) Cancelled Prolymphocyte % Cancelled Reactive Lymphs % (Man) Cancelled Monocytes % (Manual) Cancelled Eosinophils % (Manual) Cancelled Basophils % (Manual) Cancelled Metamyelocytes % (Man) Cancelled Myelocytes % (Man) Cancelled Promyelocytes % (Man) Cancelled Blast Cells % (Manual) Cancelled Plasma Cell % (Manual) Cancelled Other Cells % Cancelled Nucleated RBC % Cancelled Neutrophils # (Manual) Cancelled Band Neutrophils # Cancelled Total Absolute Neuts Cancelled Lymphocytes # (Manual) Cancelled Prolymphocyte # Cancelled Reactive Lymphs # Cancelled Total Abs Lymphocytes Cancelled Monocytes # (Manual) Cancelled Eosinophils # (Manual) Cancelled Basophils # (Manual) Cancelled Metamyelocytes # (Man) Cancelled Myelocytes # (Manual) Cancelled Promyelocytes # (Man) Cancelled Blast Cells # (Man) Cancelled Plasma Cell # (Manual) Cancelled Other Cells # Cancelled Nucleated RBCs # (Man) Cancelled Hypersegmented Neuts Cancelled Hyposegmented Neuts Cancelled Hypogranular Neuts Cancelled Large Granular Lymphs Cancelled # Lrg Granular Lymphs Cancelled Hairy Cells Cancelled Smudge Cells Cancelled Toxic Granulation Cancelled Toxic Vacuolation Cancelled Dohle Bodies Cancelled Sofiya Rods Cancelled Platelet Estimate Cancelled Hypogranular Platelets Cancelled Clumped Platelets Cancelled Giant Platelets Cancelled Platelet Satelliting Cancelled RBC Morphology Cancelled Polychromasia Cancelled Hypochromasia Cancelled Poikilocytosis Cancelled Basophilic Stippling Cancelled Anisocytosis Cancelled Microcytosis Cancelled Macrocytosis Cancelled Spherocytes Cancelled Pappenheimer Bodies Cancelled Sickle Cells Cancelled Target Cells Cancelled Tear Drop Cells Cancelled Ovalocytes Cancelled Stomatocytes Cancelled Stewart-[place] Bodies Cancelled Echinocytes Cancelled Acanthocytes (Spur) Cancelled Rouleaux Cancelled RBC Agglutinates Cancelled Schistocytes Cancelled RBC Morph Comment Cancelled Sezary Cell Cancelled PT 12.4 H (9.0-12.0) Seconds INR 1.2 H (0.9-1.1) APTT 34.9 H (21.0-31.0) Seconds PTT Ratio 1.3 Sodium Cancelled Potassium Cancelled Chloride Cancelled Carbon Dioxide Cancelled Anion Gap Cancelled BUN Cancelled Creatinine Cancelled Est Cr Clr Drug Dosing Cancelled Est GFR ( Amer) Cancelled Est GFR (Non-Af Amer) Cancelled BUN/Creatinine Ratio Cancelled Glucose Cancelled Calcium Cancelled Magnesium Cancelled Total Bilirubin Cancelled AST Cancelled ALT Cancelled Alkaline Phosphatase Cancelled Troponin I Cancelled NT-Pro-B Natriuret Pep (0-1800) pg/ml Total Protein Cancelled Albumin Cancelled Globulin Cancelled Albumin/Globulin Ratio Cancelled Urine Color Urine Appearance (Clear) Urine pH (4.5-7.5) Ur Specific Glen (1.000-1.030) Urine Protein (Negative) Urine Glucose (UA) (Negative) Urine Ketones (Negative) Urine Blood (Negative) Urine Nitrite (Negative) Urine Bilirubin (Negative) Urine Urobilinogen (Negative) Ur Leukocyte Esterase (Negative) COVID-19 Eval Order SARS-CoV-2 (PCR) (Negative) 08/21/20 08/21/20 08/21/20 Range/Units 13:10 13:57 13:57 WBC 6.05 RBC 3.37 L Hgb 10.9 L Hct 32.9 L MCV 97.6 MCH 32.3 MCHC 33.1 RDW Std Deviation 53.0 H RDW Coeff of Inez 14.9 H Plt Count 215 MPV 10.6 H Immature Gran % (Auto) 0.2 Neut % (Auto) 71.9 Lymph % (Auto) 13.2 [place] % (Auto) 8.9 Eos % (Auto) 5.5 Baso % (Auto) 0.3 Neut # (Auto) 4.35 Lymph # (Auto) 0.80 L [place] # (Auto) 0.54 Eos # (Auto) 0.33 Baso # (Auto) 0.02 Immature Gran # (Auto) 0.01 Absolute Nucleated RBC Nucleated RBC % (auto) Neutrophils % (Manual) Band Neutrophils % Lymphocytes % (Manual) Prolymphocyte % Reactive Lymphs % (Man) Monocytes % (Manual) Eosinophils % (Manual) Basophils % (Manual) Metamyelocytes % (Man) Myelocytes % (Man) Promyelocytes % (Man) Blast Cells % (Manual) Plasma Cell % (Manual) Other Cells % Nucleated RBC % Neutrophils # (Manual) Band Neutrophils # Total Absolute Neuts Lymphocytes # (Manual) Prolymphocyte # Reactive Lymphs # Total Abs Lymphocytes Monocytes # (Manual) Eosinophils # (Manual) Basophils # (Manual) Metamyelocytes # (Man) Myelocytes # (Manual) Promyelocytes # (Man) Blast Cells # (Man) Plasma Cell # (Manual) Other Cells # Nucleated RBCs # (Man) Hypersegmented Neuts Hyposegmented Neuts Hypogranular Neuts Large Granular Lymphs # Lrg Granular Lymphs Hairy Cells Smudge Cells Toxic Granulation Toxic Vacuolation Dohle Bodies Sofiya Rods Platelet Estimate Hypogranular Platelets Clumped Platelets Giant Platelets Platelet Satelliting RBC Morphology Polychromasia Hypochromasia Poikilocytosis Basophilic Stippling Anisocytosis Microcytosis Macrocytosis Spherocytes Pappenheimer Bodies Sickle Cells Target Cells Tear Drop Cells Ovalocytes Stomatocytes Stewart-[place] Bodies Echinocytes Acanthocytes (Spur) Rouleaux RBC Agglutinates Schistocytes RBC Morph Comment Sezary Cell PT (9.0-12.0) Seconds INR (0.9-1.1) APTT (21.0-31.0) Seconds PTT Ratio Sodium 133 L Potassium 4.1 Chloride 98 Carbon Dioxide 28 Anion Gap 7.0 BUN 26 H Creatinine 1.83 H Est Cr Clr Drug Dosing Not Reportable Est GFR ( Amer) 39.0 Est GFR (Non-Af Amer) 33.6 BUN/Creatinine Ratio 14.3 Glucose 103 H Calcium 9.2 Magnesium 2.1 Total Bilirubin 0.3 AST 16 ALT 22 Alkaline Phosphatase 87 Troponin I < 0.015 NT-Pro-B Natriuret Pep 1980 H (0-1800) pg/ml Total Protein 9.5 H Albumin 2.6 L Globulin 6.9 H Albumin/Globulin Ratio 0.4 L Urine Color Yellow Urine Appearance Clear (Clear) Urine pH 7.0 (4.5-7.5) Ur Specific Glen 1.012 (1.000-1.030) Urine Protein Negative (Negative) Urine Glucose (UA) Negative (Negative) Urine Ketones Negative (Negative) Urine Blood Negative (Negative) Urine Nitrite Negative (Negative) Urine Bilirubin Negative (Negative) Urine Urobilinogen Negative (Negative) Ur Leukocyte Esterase Negative (Negative) COVID-19 Eval Order SARS-CoV-2 (PCR) (Negative) 08/21/20 08/21/20 Range/Units 14:42 14:42 WBC RBC Hgb Hct MCV MCH MCHC RDW Std Deviation RDW Coeff of Inez Plt Count MPV Immature Gran % (Auto) Neut % (Auto) Lymph % (Auto) [place] % (Auto) Eos % (Auto) Baso % (Auto) Neut # (Auto) Lymph # (Auto) [place] # (Auto) Eos # (Auto) Baso # (Auto) Immature Gran # (Auto) Absolute Nucleated RBC Nucleated RBC % (auto) Neutrophils % (Manual) Band Neutrophils % Lymphocytes % (Manual) Prolymphocyte % Reactive Lymphs % (Man) Monocytes % (Manual) Eosinophils % (Manual) Basophils % (Manual) Metamyelocytes % (Man) Myelocytes % (Man) Promyelocytes % (Man) Blast Cells % (Manual) Plasma Cell % (Manual) Other Cells % Nucleated RBC % Neutrophils # (Manual) Band Neutrophils # Total Absolute Neuts Lymphocytes # (Manual) Prolymphocyte # Reactive Lymphs # Total Abs Lymphocytes Monocytes # (Manual) Eosinophils # (Manual) Basophils # (Manual) Metamyelocytes # (Man) Myelocytes # (Manual) Promyelocytes # (Man) Blast Cells # (Man) Plasma Cell # (Manual) Other Cells # Nucleated RBCs # (Man) Hypersegmented Neuts Hyposegmented Neuts Hypogranular Neuts Large Granular Lymphs # Lrg Granular Lymphs Hairy Cells Smudge Cells Toxic Granulation Toxic Vacuolation Dohle Bodies Sofiya Rods Platelet Estimate Hypogranular Platelets Clumped Platelets Giant Platelets Platelet Satelliting RBC Morphology Polychromasia Hypochromasia Poikilocytosis Basophilic Stippling Anisocytosis Microcytosis Macrocytosis Spherocytes Pappenheimer Bodies Sickle Cells Target Cells Tear Drop Cells Ovalocytes Stomatocytes Stewart-[place]ell[place] Bodies Echinocytes Acanthocytes (Spur) Rouleaux RBC Agglutinates Schistocytes RBC Morph Comment Sezary Cell PT (9.0-12.0) Seconds INR (0.9-1.1) APTT (21.0-31.0) Seconds PTT Ratio Sodium Potassium Chloride Carbon Dioxide Anion Gap BUN Creatinine Est Cr Clr Drug Dosing Est GFR ( Amer) Est GFR (Non-Af Amer) BUN/Creatinine Ratio Glucose Calcium Magnesium Total Bilirubin AST ALT Alkaline Phosphatase Troponin I NT-Pro-B Natriuret Pep (0-1800) pg/ml Total Protein Albumin Globulin Albumin/Globulin Ratio Urine Color Urine Appearance (Clear) Urine pH (4.5-7.5) Ur Specific Glen (1.000-1.030) Urine Protein (Negative) Urine Glucose (UA) (Negative) Urine Ketones (Negative) Urine Blood (Negative) Urine Nitrite (Negative) Urine Bilirubin (Negative) Urine Urobilinogen (Negative) Ur Leukocyte Esterase (Negative) COVID-19 Eval Order Covid19 at [facility] SARS-CoV-2 (PCR) NEGATIVE (Negative) Administered Medications Albuterol (Albuterol 0.083% Nebu Soln 3 Ml Vial) 2.5 mg INH BIDR JAQUELINE Stop: 09/20/20 19:59 Last Admin: 08/21/20 20:38 Dose: 2.5 mg Documented by: [id number] Cephalexin HCl (Cephalexin 250 Mg Cap) 250 mg PO QID JAQUELINE; Protocol Stop: 08/28/20 20:59 Last Admin: 08/21/20 21:04 Dose: 250 mg Documented by: [id number] Gabapentin (Gabapentin 100 Mg Cap) 200 mg PO HS JAQUELINE Stop: 09/20/20 20:59 Last Admin: 08/21/20 21:04 Dose: 200 mg Documented by: [id number] Metoprolol Tartrate (Metoprolol Tartrate 25 Mg Tab) 12.5 mg PO QPM JAQUELINE Stop: 09/20/20 20:59 Last Admin: 08/21/20 21:04 Dose: 12.5 mg Documented by: [id number] Miscellaneous (Azelastine 0.15 % (205.5 Mcg) [place]- Order Awaiting Action) 1 ea N/A BID JAQUELINE Stop: 09/20/20 20:59 Last Admin: 08/21/20 21:06 Dose: Not Given Documented by: [id number] Pantoprazole Sodium (Pantoprazole 40 Mg Tab) 40 mg PO BID JAQUELINE Stop: 09/20/20 20:59 Last Admin: 08/21/20 21:04 Dose: 40 mg Documented by: [id number] Rivaroxaban (Rivaroxaban 15 Mg Tab) 15 mg PO PM JAQUELINE Stop: 09/20/20 20:59 Last Admin: 08/21/20 21:04 Dose: 15 mg Documented by: [id number] Simvastatin (Simvastatin 10 Mg Tab) 10 mg PO HS JAQUELINE Stop: 09/20/20 20:59 Last Admin: 08/21/20 21:04 Dose: 10 mg Documented by: [id number] Discontinued Medications Furosemide (Furosemide 40 Mg/4 Ml Vial) 80 mg IV NOW STA Stop: 08/21/20 15:36 Last Admin: 08/21/20 15:59 Dose: 80 mg Documented by: [id number] Imaging Data Radiologist's Impression: Chest X-Ray 08/21/20 13:14 XR chest 1V portable HISTORY: 80 years-old Male SOB acute shortness of breath COMPARISON: 06/16/2020 TECHNIQUE: Portable AP view the chest FINDINGS: Cardiac silhouette is enlarged. Prior median sternotomy with CABG. Study is limited secondary to positioning. The left lower lung base is excluded from the [id number]. Mild right hemidiaphragmatic elevation. Pulmonary vascular congestion with interstitial coarsening. Mild bibasilar opacities. No pneumothorax or large pleural effusion. Degenerative changes of the spine and right shoulder. Left subclavian pacer. IMPRESSION: 1. Cardiomegaly with pulmonary vascular congestion and interstitial coarsening suggestive of pulmonary edema. 2. Mild right hemidiaphragm elevation with bibasilar opacities suggestive of atelectasis versus pneumonitis. ACT 112: Negative or not required by law. The above report was generated using voice recognition software. It may contain grammatical, syntax or spelling errors. Electronically signed by: Esau Allen M.D. 08/21/2020 1:48 PM Venous Doppler Study 08/21/20 16:43 RIGHT LOWER EXTREMITY VENOUS DOPPLER CLINICAL HISTORY: Right lower extremity edema. Evaluate for DVT COMPARISON STUDY: No previous studies for comparison. TECHNIQUE: Sonography of the deep venous system of the right lower extremity was performed. Compression and augmentation were evaluated. FINDINGS: The right common femoral, superficial femoral and popliteal veins were compressible. Augmentation was normal. Flow was shown within the deep calf vessels. Note is made of subcutaneous edema of the right lower extremity. IMPRESSION: No evidence of deep venous thrombus within the right lower extremity. ACT 112: Negative or not required by law. Electronically signed by: Sergio Pollack M.D. 08/21/2020 7:09 PM Discharge Plan Visit Data Chief Complaint: Swelling/Edema to Extremity Stated Complaint: POOR KIDNEY FUNCTION, BOTH LEGS SWOLLEN ED Midlevel Provider: Clarisse Burnham Discharge Problem: Acute on chronic diastolic (congestive) heart failure, COPD (chronic obstructive pulmonary disease), Chronic hypoxemic respiratory failure, Afib, Status cardiac pacemaker, Chronic renal insufficiency Patient Disposition: Admitted As Inpatient Discharge Instructions Interventions: ED Discharge Assessment Last Done: 08/21/20 18:38 Discharge Problem: COPD (chronic obstructive pulmonary disease) Qualifiers: COPD type: unspecified COPD Qualified Code(s): J44.9 - Chronic obstructive pulmonary disease, unspecified Afib Qualifiers: Atrial fibrillation type: unspecified Qualified Code(s): I48.91 - Unspecified atrial fibrillation Chronic renal insufficiency Qualifiers: Chronic kidney disease stage: unspecified stage Qualified Code(s): N18.9 - Chronic kidney disease, unspecified
--- NOTE | 2020-08-21 13:42 | Electrocardiogram Report ---
Test Reason : Blood Pressure : / mmHG Vent. Rate : 070 BPM Atrial Rate : 064 BPM P-R Int : 000 ms QRS Dur : 132 ms QT Int : 442 ms P-R-T Axes : 000 -37 098 degrees QTc Int : 477 ms Ventricular-paced rhythm Abnormal ECG When compared with ECG of 26-NOV-2019 13:26, No significant change was found Confirmed by Hola oJhnson ([id number]) on 08/21/2020 1:41:34 PM Referred By: Confirmed By:Pb Johnson
--- NOTE | 2020-08-21 13:49 | XRay Report ---
XR chest 1V portable HISTORY: 80 years-old Male SOB acute shortness of breath COMPARISON: 06/16/2020 TECHNIQUE: Portable AP view the chest FINDINGS: Cardiac silhouette is enlarged. Prior median sternotomy with CABG. Study is limited secondary to posi tioning. The left lower lung base is excluded from the [id number]. Mild right hemidiaphragmatic el evation. Pulmonary vascular congestion with interstitial coarsening. Mild bibasilar opacities. No pne umothorax or large pleural effusion. Degenerative changes of the spine and right shoulder. Left subcl laurent pacer. IMPRESSION: 1. Cardiomegaly with pulmonary vascular congestion and interstitial coarsening suggestive of pulmonar y edema. 2. Mild right hemidiaphragm elevation with bibasilar opacities suggestive of atelectasis versus pneum onitis. ACT 112: Negative or not required by law. The above report was generated using voice recognition software. It may contain grammatical, syntax o r spelling errors. Electronically signed by: Esau Allen M.D. 08/21/2020 1:48 PM
[2020-08-21 14:07] LABS: Basophils # (auto) 0.02 K/uL (0-0.2); Basophils % (auto) 0.3 %; Eosinophils # (auto) 0.33 K/uL (0-0.5); Eosinophils % (auto) 5.5 %; Hematocrit (blood only) 32.9 % (42-52); Hemoglobin 10.9 g/dL (14.0-18.0); Immature Granulocytes # (auto) 0.01 K/uL (0.00-0.02); Immature Granulocytes % (auto) 0.2 %; Lymphocytes % (auto) 13.2 %; Mean Corpuscular Hemoglobin 32.3 pg (25-34); Mean Corpuscular Hgb Conc 33.1 g/dL (32-36); Mean Corpuscular Volume 97.6 fL (80-100); Mean Platelet Volume 10.6 fL (7.4-10.4); Monocytes # (auto) 0.54 K/uL (0.11-0.59); Monocytes % (auto) 8.9 %; Neutrophils # (auto) 4.35 K/uL (1.4-6.5); Neutrophils % (auto) 71.9 %; Platelet Count 215 K/uL (130-400); RDW Coefficient of Variation 14.9 % (11.5-14.5); Red Blood Count 3.37 M/uL (4.7-6.1); White Blood Count 6.05 K/uL (4.8-10.8)
--- NOTE | 2020-08-21 14:15 | Emergency Department Note ---
ED Visit Note This patient was seen in concert with Dr. Swanson and we discussed and agreed upon the history, physical, assessment and plan. See attending's note for details. Resident Activity Tracking Resident Involvement: Resident Care Provided Care Provided: Adult ED
[2020-08-21 14:27] LABS: Alanine Aminotransferase 22 U/L (12-78); Albumin Level 2.6 gm/dl (3.4-5.0); Aspartate Aminotransferase 16 U/L (15-37); BUN Creatinine Ratio 14.3 (10-20); Blood Urea Nitrogen 26 mg/dl (7-18); Calcium 9.2 mg/dl (8.5-10.1); Carbon Dioxide 28 mmol/L (21-32); Chloride 98 mmol/L (98-107); Est GFR (Non-African American) 33.6 ml/min; Glucose 103 mg/dl (70-99); Magnesium 2.1 mg/dl (1.8-2.4); Potassium 4.1 mmol/L (3.5-5.1); Sodium 133 mmol/L (136-145)
[2020-08-21 14:32] LABS: Albumin Globulin Ratio 0.4 (0.9-2); Alkaline Phosphatase 87 U/L (45-117); Bilirubin,Total 0.3 mg/dl (0.2-1); Globulin 6.9 gm/dl (2.5-4.0); NT Pro B Type Natriuretic Pept 1980 pg/ml (0-1800); Total Protein 9.5 gm/dl (6.4-8.2); Troponin I < 0.015 ng/ml (0-0.045)
[2020-08-21] MEDS ORDERED: FUROSEMIDE 40 MG/4 ML VIAL IV STA (15:35)
--- NOTE | 2020-08-21 16:51 | History & Physical Report ---
Date of Service August 21, 2020 Assessment & Plan (1) Diastolic CHF: Plan: CHF exacerbation secondary to volume - Reported home weight is around 246-250 pounds. Reports 2 lb weight gain - Lasix 80 mg given in the EMD- redose tonight based off diuresing amount. - Goal would be ~750ml to 1liter negative within next 24 hours - Continue Metoprolol 25 in am and 12.5 in PM with hold parameters- as no dyspnea or othopnea - Continue higher end of Spironolactone while diuresing - Condom catheter as patient reports difficulty using urinal and getting up to go to bathroom - Daily standing weights - Accurate MANISHA (2) Hypertension: Plan: As above (3) Afib: Plan: Rate controlled with Vpacer- patient has history of ablastion and remains on Xarelto - no acute needs (4) Hyperlipidemia: Plan: On omega 3 fish oil as outpatient - he can take his own if brought in - no acute need (5) CAD (coronary artery disease): Plan: As above continue ASA, BB (6) DM II (diabetes mellitus, type II), controlled: Plan: Diet controlled not on agents- Last a1c in MAR 5.9 (7) COPD (chronic obstructive pulmonary disease): Plan: Continue home inhalers- fluticasone/salmeterol, ipatropium - BiPAP at night 15/5 adjust as needed (8) Central sleep apnea: Plan: As above (9) Otorrhea of left ear: Plan: Continue home ear drops (10) Hyponatremia: Plan: Chronic in the setting of hypervolemia and chronic diuretic use (11) Gait abnormality: Plan: PT/OT consult History of Present Illness Primary Care Provider: Ken Worthington MD 80 YOM with past medcial history of: CAD x2, CABGx3, HFpEF, CKD III, COPD, SANDOR, Afib with ablation(on Xeralto and pacemaker(2018)), HLD, HTN, GERD. Patient referred to EMD today for worsening of his lower extremity edema that has gotten worse over the past 2-3 days. Patient has noticed increase in swelling of his feet, legs, and pants feeling tighter. The patient denies any chest pain, or increase in dyspnea or orthopnea. He reports compliance with his medications however, he is unsure of what his medications are, but says he takes everything they give me. He also reports compliance with his BiPAP and his compliance report verifies this. He reports that his weight has gone up 2 pounds despite adjusting his diuretic use at home. The patient has history of labile blood pressures and is on sliding dose of metoprolol 12.5-25mg based on his HR/BP and is on sliding dose of spironolactone based on his weight and symptoms and has been allotted to take an additional 40mg of Lasix as needed once per week. Patient does endorse right lower calf pain that started about 2 days ago, was placed on Keflex as outpatient for popped venous blister and has completed that course today. In the EMD the patient had a CXR done that showed increase in pulmonary vascular congestion and ECG done that shows appropriate Ventricular paced 100% rythm. His troponin was negative and his BNP was 1980. Patient will be admitted to follow his diuresing. Allergies Allergy/AdvReac Type Severity Reaction Status Date / Time No Known Drug Allergies Allergy Unknown Verified 08/21/20 16:30 Home Medications Medication Instructions Recorded Confirmed Type aspirin 81 mg tablet,delayed 81 mg PO QAM #0 11/04/16 08/21/20 History release ipratropium 0.5 mg-albuterol 3 mg 3 ml INHALATION Q4H PRN #0 inh 11/04/16 08/21/20 History (2.5 mg base)/3 mL nebulization soln albuterol sulfate 2.5 mg INHALATION BID #0 dose 01/16/17 08/21/20 History ferrous sulfate 325 mg (65 mg 325 mg PO QAM #0 03/21/17 08/21/20 History iron) tablet cholecalciferol (vitamin D3) 25 2,000 unit PO QAM #60 tab 02/19/18 08/21/20 Rx mcg (1,000 unit) tablet (Vitamin D3) vitamin B complex 1 tab PO QAM 10/18/18 08/21/20 History travoprost 0.004 % eye drops 1 drp OPB HS 09/20/19 08/21/20 History omega 8-tyg-hfm-fish oil 1,000 mg 1 cap PO QAM 11/26/19 08/21/20 History (120 mg-180 mg) capsule (Fish Oil) simvastatin 10 mg tablet 10 mg PO HS 11/26/19 08/21/20 History spironolactone 25 mg tablet 12.5 - 25 mg PO DIRECTED 11/26/19 08/21/20 History azelastine 205.5 mcg (0.15 %) 1 spray INTNAS BID #30 ml 12/05/19 08/21/20 Rx nasal spray fluticasone 500 mcg-salmeterol 50 1 inh INH BID #60 ea 01/10/20 08/21/20 Rx mcg/dose blistr powdr for inhalation (Advair Diskus) furosemide 40 mg tablet 80 mg PO QAM PRN tab 01/13/20 08/21/20 History ofloxacin 0.3 % ear drops 5 drp OTL HS PRN 01/13/20 08/21/20 History mupirocin 2 % topical ointment 1 applic TOP BID #30 gm 04/30/20 08/21/20 Rx nitroglycerin 0.4 mg sublingual 0.4 mg SUBLINGUAL PRN PRN #15 tab 06/23/20 08/21/20 Rx tablet (Nitrostat) allopurinol 300 mg tablet 300 mg PO QAM #30 tab 06/30/20 08/21/20 Rx fluticasone propionate 50 2 spray INTRANASAL QAM #18.2 ml 06/30/20 08/21/20 Rx mcg/actuation nasal spray,suspension (Flonase Allergy Relief) omeprazole 20 mg capsule,delayed 20 mg PO BID #180 cap 07/15/20 08/21/20 Rx release ascorbic acid (vitamin C) 1,000 mg 1 g PO QAM 08/21/20 08/21/20 History tablet (Vitamin C) cephalexin 250 mg capsule 250 mg PO QID 08/21/20 08/21/20 History gabapentin 100 mg capsule 100 - 300 mg PO HS 08/21/20 08/21/20 History metoprolol tartrate 25 mg tablet 12.5 - 25 mg PO DIRECTED 08/21/20 08/21/20 History rivaroxaban 15 mg tablet (Xarelto) 15 mg PO PM 08/21/20 08/21/20 History tobramycin 0.3 %-dexamethasone 0.1 5 drp OPL DIRECTED 08/21/20 08/21/20 History % eye drops,suspension zinc 50 mg tablet 50 mg PO QAM 08/21/20 08/21/20 History Past Med/Surg History Medical History Acquired deviated nasal septum Afib Clinton's palsy Chronic hypoxemic respiratory failure Chronic renal insufficiency Complex sleep apnea syndrome COPD (chronic obstructive pulmonary disease) Coronary artery disease DM II (diabetes mellitus, type II), controlled Gout History of heart attack Hx of fracture of pelvis Hyperlipidemia Neuropathy SANDOR (obstructive sleep apnea) nasal CPAP Surgical History History of cataract surgery History of coronary artery stent placement History of dental surgery History of right hip replacement History of tonsillectomy Hx of CABG triple vessel, 2012 Status cardiac pacemaker Family History Family/Other Coronary heart disease Cardiac disorder Hypertension Deafness Hearing loss Other Family history non-contributory Social History Smoking Status: Former smoker Years Smoked: 30; Hx Alcohol Use: Yes Alcohol type: hard liquor Alcohol Intake Frequency Comment: Social Hx Substance Use: No Preferred Language: French Communication Ability: Effective 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: No Beliefs That Will Affect Care: None marital status: marital status details: 2 daughters Current Living Situation: Spouse Current Living Situation Comment: lives at [facility] in an apartment current occupational status: retired other: worked [employer] for [employer] x 30 years previously Feels Safe at Home: Yes Assistive Devices: Walker Review of Systems Review of Systems: REVIEW OF SYSTEMS: Constitutional: No fever, sweats or chills Eyes: No diplopia, no worsening or blurred vision ENT: normal hearing, no trouble swallowing Respiratory: (+) dyspnea that is not worsening, No cough Cardiovascular: No chest pain, tightness or palpitations Abdomen: (+) tighter fitting pants, No pain, nausea, vomiting, diarrhea or constipation Musculoskeletal: (+) right calf pain, No joint pain Neurologic: (+) balance and frequent falls, No weakness, numbness/tingling, or balance problems Psychiatric: No anxiety or depression Skin: (+) chronic rubor to bilateral lower extremities Physical Exam Physical Exam: PHYSICAL EXAM: General: awake, alert, no apparent distress Head: Normocephalic, atraumatic ENT: PERRL, EOMI, no pharyngeal exudate, mucous membranes moist Neuro: AAO x 3, speech clear and appropriate, strength intact bilaterally 5/5, sensation intact and equal all extremities and dermatones, no pronator drift Chest: equal rise and fall of the chest, no accessory muscle use, no heaves or thirlls, Clear to auscultation, on room air, Cardiac: Regular rate and rhythm, telemetry reviewed- 100% V pace, skin warm dry, cap refill <3 seconds, peripheral pulses +2 no JVD, no murmur, (+) 3 pitting edema to mid calf (+) 2 edema to just above the knee GI: NABS x 4 quadrants, soft, nontender to palpation, no rebound, guarding or tenderness : Spontaneously voiding, no pain, no CVA tenderness, Extremities: Normal inspection, right calfs tender to palpation and larger than left leg, but patient says this is normal from prior injuries, venous discoloartion bilaterally not cellulitic looking, old popped blister with serous drainage, covered with 4x4 Psych: Normal mood and affect Skin: as above Results & Data Results & Data ([facility]) Vital Signs (Past 12 Hours) Vital Signs Temp Pulse Pulse Resp BP BP Pulse Ox 08/21/20 16:00 70 20 124/83 94 08/21/20 14:30 70 21 139/75 96 08/21/20 14:00 70 15 140/79 96 08/21/20 13:31 70 20 132/66 95 08/21/20 13:10 70 14 132/73 95 08/21/20 12:33 36.4 C L 70 20 129/55 L 95 Laboratory Results Abnormal lab results 08/21/20 08/21/20 08/21/20 Range/Units 13:10 13:57 13:57 RBC 3.37 L (4.7-6.1) M/uL Hgb 10.9 L (14.0-18.0) g/dL Hct 32.9 L (42-52) % RDW Std Deviation 53.0 H (36.4-46.3) fL RDW Coeff of Inez 14.9 H (11.5-14.5) % MPV 10.6 H (7.4-10.4) fL Lymph # (Auto) 0.80 L (1.2-3.4) K/uL PT 12.4 H (9.0-12.0) Seconds INR 1.2 H (0.9-1.1) APTT 34.9 H (21.0-31.0) Seconds Sodium 133 L (136-145) mmol/L BUN 26 H (7-18) mg/dl Creatinine 1.83 H (0.6-1.4) mg/dl Glucose 103 H (70-99) mg/dl NT-Pro-B Natriuret Pep 1980 H (0-1800) pg/ml Total Protein 9.5 H (6.4-8.2) gm/dl Albumin 2.6 L (3.4-5.0) gm/dl Globulin 6.9 H (2.5-4.0) gm/dl Albumin/Globulin Ratio 0.4 L (0.9-2) Diagnostic Findings Chest X-Ray 08/21/20 13:14 XR chest 1V portable HISTORY: 80 years-old Male SOB acute shortness of breath COMPARISON: 06/16/2020 TECHNIQUE: Portable AP view the chest FINDINGS: Cardiac silhouette is enlarged. Prior median sternotomy with CABG. Study is limited secondary to positioning. The left lower lung base is excluded from the [id number]. Mild right hemidiaphragmatic elevation. Pulmonary vascular congestion with interstitial coarsening. Mild bibasilar opacities. No pneumothorax or large pleural effusion. Degenerative changes of the spine and right shoulder. Left subclavian pacer. IMPRESSION: 1. Cardiomegaly with pulmonary vascular congestion and interstitial coarsening suggestive of pulmonary edema. 2. Mild right hemidiaphragm elevation with bibasilar opacities suggestive of atelectasis versus pneumonitis. Electronically signed by: Esau Allen M.D. 08/21/2020 1:48 PM Medications Administered Discontinued Medications Furosemide (Furosemide 40 Mg/4 Ml Vial) 80 mg IV NOW STA Stop: 08/21/20 15:36 Last Admin: 08/21/20 15:59 Dose: 80 mg Documented by: [id number] ECG Additional Comments: Vent. Rate : 070 BPM Atrial Rate : 064 BPM P-R Int : 000 ms QRS Dur : 132 ms QT Int : 442 ms P-R-T Axes : 000 -37 098 degrees QTc Int : 477 ms Ventricular-paced rhythm Abnormal ECG When compared with ECG of 26-NOV-2019 13:26, No significant change was found Code Status & VTE Plan Code Status CODE: FULL VTE: SCD's, Xeralto, ambulation VTE Prophylaxis Plan VTE Prophylaxis will be ordered: Yes Supervising Physician Co-Signing Physician Notes Patient was seen and examined independently I discussed the case with Vadim OVALLE I reviewed pertinent past medical social family history and also the plan of care and agree with the plan of care. Pts was in the hospital, he did eat [employer] and scrapple and may have missed a dose of medicine, he is here with heart failure. pt examines for fluid overload, chronic stasis dermatitis and maybe secondary infection Any exceptions will be noted below PG Care Time/CCT Total # of Minutes Spent Total Time Spent with Patient: Total time spent is greater than 50% in coordination of care (as documented) at patient's floor/unit and/or counseling patient: Coding Level of Care Code INT OBSERVATION CARE 70M LVL 3 Diagnoses Diastolic CHF I50.30 Hypertension I10 Hypertension type: essential hypertension Hyperlipidemia E78.2 Hyperlipidemia type: mixed hyperlipidemia DM II (diabetes mellitus, type II), controlled E11.9 Diabetes mellitus complication status: without complication Diabetes mellitus prison insulin use: without prison use COPD (chronic obstructive pulmonary disease) J44.9 COPD type: unspecified COPD Central sleep apnea G47.31 Otorrhea of left ear H92.12 Hyponatremia E87.1 Gait abnormality R26.9 Afib I48.2 Atrial fibrillation type: chronic CAD (coronary artery disease) I25.10 (1) Afib Atrial fibrillation type: chronic Qualified Code(s): I48.2 - Chronic atrial fibrillation (2) Hyperlipidemia Hyperlipidemia type: mixed hyperlipidemia Qualified Code(s): E78.2 - Mixed hyperlipidemia (3) DM II (diabetes mellitus, type II), controlled Diabetes mellitus complication status: without complication Diabetes mellitus prison insulin use: without superintendent terminal use Qualified Code(s): E11.9 - Type 2 diabetes mellitus without complications (4) COPD (chronic obstructive pulmonary disease) COPD type: unspecified COPD Qualified Code(s): J44.9 - Chronic obstructive pulmonary disease, unspecified (5) Hypertension Hypertension type: essential hypertension Qualified Code(s): I10 - Essential (primary) hypertension
--- NOTE | 2020-08-21 19:10 | Ultrasound Report ---
RIGHT LOWER EXTREMITY VENOUS DOPPLER CLINICAL HISTORY: Right lower extremity edema. Evaluate for DVT COMPARISON STUDY: No previous studies for comparison. TECHNIQUE: Sonography of the deep venous system of the right lower extremity was performed. Compress ion and augmentation were evaluated. FINDINGS: The right common femoral, superficial femoral and popliteal veins were compressible. Augme ntation was normal. Flow was shown within the deep calf vessels. Note is made of subcutaneous edema o f the right lower extremity. IMPRESSION: No evidence of deep venous thrombus within the right lower extremity. ACT 112: Negative or not required by law. Electronically signed by: Sergio Pollack M.D. 08/21/2020 7:09 PM
[2020-08-21] MEDS ORDERED: NITROGLYCERIN SL 0.4 MG/TAB TAB SL PRN (19:30)
[2020-08-21] MEDS ORDERED: TOBRAMYCIN/DEXAMETHASONE OPH SUSP 2.5 ML BTL OT PRN (19:30)
[2020-08-21] MEDS ORDERED: ALBUT/IPRATROP 3MG/0.5MG NEB 3 ML VIAL INH PRN (19:30)
[2020-08-21] MEDS ORDERED: POLYETHYLENE (MIRALAX) 17 GM PACK PO PRN (19:30)
[2020-08-21] MEDS ORDERED: ACETAMINOPHEN 325 MG TAB PO PRN (19:30)
[2020-08-21] MEDS ORDERED: OFLOXACIN 0.3% OTIC SOLN 5 ML BTL OT PRN (19:50)
[2020-08-21] MEDS ORDERED: PATIENT'S WEIGHT NEEDED SCH (20:00)
[2020-08-21] MEDS ORDERED: ALBUTEROL 0.083% NEBU SOLN 3 ML VIAL INH SCH (20:00)
[2020-08-21] MEDS ORDERED: GABAPENTIN 100 MG CAP PO SCH (21:00)
[2020-08-21] MEDS ORDERED: SIMVASTATIN 10 MG TAB PO SCH (21:00)
[2020-08-21] MEDS ORDERED: METOPROLOL TARTRATE 25 MG TAB PO SCH (21:00)
[2020-08-21] MEDS ORDERED: RIVAROXABAN 15 MG TAB PO SCH (21:00)
[2020-08-21] MEDS: PANTOprazole 40 MG TAB PO SCH (21:04)
[2020-08-21] MEDS: cephALEXin 250 MG CAP PO SCH (21:04)
[2020-08-22 07:04] LABS: BUN Creatinine Ratio 16.5 (10-20); Calcium 9.5 mg/dl (8.5-10.1); Creatinine Clr Calc Pharmacy 46.8 ml/min; Est GFR (Non-African American) 44.9 ml/min
[2020-08-22 07:09] LABS: Basophils # (auto) 0.02 K/uL (0-0.2); Basophils % (auto) 0.4 %; Eosinophils # (auto) 0.23 K/uL (0-0.5); Eosinophils % (auto) 4.9 %; Hematocrit (blood only) 32.1 % (42-52); Hemoglobin 10.7 g/dL (14.0-18.0); Immature Granulocytes # (auto) 0.01 K/uL (0.00-0.02); Immature Granulocytes % (auto) 0.2 %; Lymphocytes # (auto) 0.46 K/uL (1.2-3.4); Lymphocytes % (auto) 9.7 %; Mean Corpuscular Hgb Conc 33.3 g/dL (32-36); Mean Corpuscular Volume 96.1 fL (80-100); Mean Platelet Volume 10.7 fL (7.4-10.4); Monocytes # (auto) 0.48 K/uL (0.11-0.59); Monocytes % (auto) 10.1 %; Neutrophils # (auto) 3.54 K/uL (1.4-6.5); Neutrophils % (auto) 74.7 %; Platelet Count 197 K/uL (130-400); RDW Standard Deviation 53.1 fL (36.4-46.3); Red Blood Count 3.34 M/uL (4.7-6.1); White Blood Count 4.74 K/uL (4.8-10.8)
[2020-08-22 07:51] LABS: Magnesium 2.3 mg/dl (1.8-2.4)
[2020-08-22 07:52] LABS: Estimated Average Glucose 134 mg/dl; Hemoglobin A1C 6.3 % (4.5-5.6)
[2020-08-22] MEDS: cephALEXin 250 MG CAP PO SCH ×2 (08:24→13:03)
[2020-08-22] MEDS: PANTOprazole 40 MG TAB PO SCH (08:24)
--- NOTE | 2020-08-22 08:46 | Hospitalist Progress Note ---
Date of Service August 22, 2020 Assessment & Plan (1) Diastolic CHF: Plan: CHF exacerbation secondary to volume - Reported home weight is around 246-250 pounds. Reports 2 lb weight gain - Lasix 80 mg given in the EMD- redose tonight based off diuresing amount. - Goal would be ~750ml to 1liter negative within next 24 hours - Continue Metoprolol 25 in am and 12.5 in PM with hold parameters- as no dyspnea or othopnea - Continue higher end of Spironolactone while diuresing - Condom catheter as patient reports difficulty using urinal and getting up to go to bathroom - Daily standing weights - Accurate MANISHA (2) Hypertension: Plan: As above (3) Afib: Plan: Rate controlled with Vpacer- patient has history of ablastion and remains on Xarelto - no acute needs (4) Hyperlipidemia: Plan: On omega 3 fish oil as outpatient - he can take his own if brought in - no acute need (5) CAD (coronary artery disease): Plan: As above continue ASA, BB (6) DM II (diabetes mellitus, type II), controlled: Plan: Diet controlled not on agents- Last a1c in MAR 13. (7) COPD (chronic obstructive pulmonary disease): Plan: Continue home inhalers- fluticasone/salmeterol, ipatropium - BiPAP at night 15 adjust as needed (8) Central sleep apnea: Plan: As above (9) Otorrhea of left ear: Plan: Continue home ear drops (10) Hyponatremia: Plan: Chronic in the setting of hypervolemia and chronic diuretic use (11) Gait abnormality: Plan: PT/OT consult Admission and Anticipated Discharge Date Admission Date: August 21, 2020 Results & Data Results & Data ([facility]) Vital Signs (Past 12 Hours) Vital Signs Temp Pulse Resp BP Pulse Ox 08/22/20 08:00 98.1 F 70 18 137/80 98 08/22/20 00:01 97.9 F 70 22 146/80 H 96 PG Care Time/CCT Total # of Minutes Spent Total Time Spent with Patient: Total time spent is greater than 50% in coordination of care (as documented) at patient's floor/unit and/or counseling patient: Coding Diagnoses Diastolic CHF I50.30 Hypertension I10 Hypertension type: essential hypertension Afib I48.91 Atrial fibrillation type: unspecified Hyperlipidemia E78.2 Hyperlipidemia type: mixed hyperlipidemia CAD (coronary artery disease) I25.10 DM II (diabetes mellitus, type II), controlled E11.9 Diabetes mellitus hydraulic lift driver insulin use: without hydraulic lift driver use Diabetes mellitus complication status: without complication COPD (chronic obstructive pulmonary disease) J44.9 COPD type: unspecified COPD Central sleep apnea G47.31 Otorrhea of left ear H92.12 Hyponatremia E87.1 Gait abnormality R26.9 (1) Hypertension Hypertension type: essential hypertension Qualified Code(s): I10 - Essential (primary) hypertension (2) Afib Atrial fibrillation type: unspecified Qualified Code(s): I48.91 - Unspecified atrial fibrillation (3) Hyperlipidemia Hyperlipidemia type: mixed hyperlipidemia Qualified Code(s): E78.2 - Mixed hyperlipidemia (4) DM II (diabetes mellitus, type II), controlled 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
[2020-08-22] MEDS ORDERED: FUROSEMIDE 40 MG TAB PO ONE (08:49)
[2020-08-22] MEDS ORDERED: SPIRONOLACTONE 25 MG TAB PO SCH ×2 (09:00→14:00)
[2020-08-22] MEDS ORDERED: FLUTICASONE PROPIONATE NA SPR 16 GM BTL NAE SCH (09:00)
[2020-08-22] MEDS ORDERED: FLUTICASONE/VILANTEROL 100/25MCG 14 PUFFS/INHALER INH SCH (09:00)
[2020-08-22] MEDS ORDERED: ASPIRIN 81 MG ECTAB PO SCH (09:00)
[2020-08-22] MEDS ORDERED: METOPROLOL TARTRATE 25 MG TAB PO SCH (09:00)
--- NOTE | 2020-08-22 17:52 | Discharge Summary ---
Date of Service August 22, 2020 Admission HPI Per Admitting Provider 80 YOM with past medcial history of: CAD x2, CABGx3, HFpEF, CKD III, COPD, SANDOR, Afib with ablation(on Xeralto and pacemaker(2018)), HLD, HTN, GERD. Patient referred to EMD today for worsening of his lower extremity edema that has gotten worse over the past 2-3 days. Patient has noticed increase in swelling of his feet, legs, and pants feeling tighter. The patient denies any chest pain, or increase in dyspnea or orthopnea. He reports compliance with his medications however, he is unsure of what his medications are, but says he takes everything they give me. He also reports compliance with his BiPAP and his compliance report verifies this. He reports that his weight has gone up 2 pounds despite adjusting his diuretic use at home. The patient has history of labile blood pressures and is on sliding dose of metoprolol 12.5-25mg based on his HR/BP and is on sliding dose of spironolactone based on his weight and symptoms and has been allotted to take an additional 40mg of Lasix as needed once per week. Patient does endorse right lower calf pain that started about 2 days ago, was placed on Keflex as outpatient for popped venous blister and has completed that course today. In the EMD the patient had a CXR done that showed increase in pulmonary vascular congestion and ECG done that shows appropriate Ventricular paced 100% rythm. His troponin was negative and his BNP was 1980. Patient will be admitted to follow his [facility]. Principal Diagnosis acute on chronic diastolic dysfunction Discharge Exam The patient appeared chronically ill Vital signs as documented. Lungs are clear to auscultation and appear unlabored Cardiac exam, Rhythm is regular.. No murmurs, rubs or gallops. Abdominal exam reveals normal bowel sounds, soft non tender, no masses Extremities are edema and some erythema to LE but improved Neurologic exam is alert and oriented, no focal loss of strength or sensation Skin is with LE changes of chronic venous stasis Psychologically is without concerns for anxiety or depression. Discharge Data Allergies Allergy/AdvReac Type Severity Reaction Status Date / Time No Known Drug Allergies Allergy Unknown Verified 08/21/20 16:30 Consultations 08/21/20 16:17 ED Decision to Admit Routine Ordered Studies 08/21/20 16:43 US venous doppler LE RT Routine Hospital Course (1) Diastolic CHF: CHF exacerbation secondary to volume - Reported home weight is around 246-250 pounds. Reports 2 lb weight gain - Lasix 80 mg given in the EMD- resume home dose of 40 - heart failure clinic - Continue Metoprolol 25 in am and 12.5 in PM with hold parameters- as no dyspnea or othopnea - Continue higher end of Spironolactone while diuresing (2) Hypertension: As above (3) Afib: Rate controlled with Vpacer- patient has history of ablastion and remains on Xarelto - no acute needs (4) Hyperlipidemia: On omega 3 fish oil as outpatient (5) CAD (coronary artery disease): As above continue ASA, BB (6) DM II (diabetes mellitus, type II), controlled: Diet controlled not on agents- Last a1c in MAR 5.9 (7) COPD (chronic obstructive pulmonary disease): Continue home inhalers- fluticasone/salmeterol, ipatropium - BiPAP at night 15/ (8) Central sleep apnea: As above (9) Otorrhea of left ear: Continue home ear drops (10) Hyponatremia: Chronic in the setting of hypervolemia and chronic diuretic use (11) Gait abnormality: PT/OT consult Total Time Total Time Spent Total Time Spent (In Minutes): It required greater than 30 minutes to prepare this patient for discharge Discharge Plan Discharge Items Patient Disposition: Home - Self-Care Reason For Visit: HEART FAILURE EXACERBATION Discharge Diagnosis: fluid retention from heart failure skin infection of lower legs Activity: Resume your previous activity Non-emergency contact: Primary Care Provider and Hand Fur Cleaner Call non-emergency contact if: you have any medication questions and your symptoms worsen Follow-up/Referrals: Ken Worthington MD [Primary Care Provider] - Faina Dubon PA-C [Physician Physician Office Specialist] - Diet: Low Sodium (2gm) Addtl Attending Provider Instructions: please contact the office of Faina Dubon for a follow up appointment next week to help control you heart failure Call 911 and go to the Emergency Room if: * You have tightness or pain in your chest that does not go away with rest or Nitroglycerin * You are very short of breath even with rest Call your doctor if any of the following symptoms or problems start or get worse: * Shortness of breath or difficulty breathing * Wake up at night short of breath * Chest pain * Cough * Swelling of your hands, fee, or legs * More fatigued or tired with your normal activity * Palpitations - sudden fast heart beats WEIGHT * Weigh yourself every morning after using the bathroom. * Use the same scale. * Wear the same amount of clothing. * Write your weight down on your chart. * Call your doctor if you gain more than 2-3 pounds in 1-2 days. MEDICATIONS * Use this discharge instruction sheet for instructions. * Take your medications at the time your doctor ordered. * Do not skip a dose of your medicines. * If you miss a dose of medicine, take as soon as possible, but DO NOT DOUBLE A DOSE. * Read your medicine information when you get home. * Know all of the side effects of your medicine. * Call your doctor's office if you have any side effects. * Be sure all of your doctors know what medicine and herbs you take (including cold, flu, and herbal medicine). * Pain Medicine: If you do not get relief from your pain, please call your doctor for help. Take the following with you to your follow-up doctor appointments: * Weight Chart * Medication List * List of questions Do not drink excessive alcohol, beer or wine. Pending Studies at Discharge: No Stand-Alone Forms: My [facility], Smoking Cessation Medications and DC Order Prescriptions: Continued ipratropium-albuterol 0.5 mg-3 mg(2.5 mg base)/3 mL Solution For Nebulization 3 ml INHALATION Q4H PRN (Reason: Shortness Of Breath) Qty: 0 RF: 0 aspirin 81 mg Tablet,Delayed Release (Dr/Ec) 81 mg PO QAM Qty: 0 RF: 0 albuterol sulfate 2.5 mg /3 mL (0.083 %) Solution For Nebulization 2.5 mg INHALATION BID Qty: 0 RF: 0 ferrous sulfate 325 mg (65 mg iron) Tablet 325 mg PO QAM Qty: 0 RF: 0 fluticasone propion-salmeterol [Advair Diskus] 500-50 mcg/dose blister with device 1 inh INH BID Qty: 60 RF: 11 nitroglycerin [Nitrostat] 0.4 mg tablet, sublingual 0.4 mg Sublingual PRN PRN (Reason: chest pain) Qty: 15 RF: 0 travoprost 0.004 % drops 1 drp OPB HS RF: 0 mupirocin 2 % ointment 1 applic TOP BID Qty: 30 RF: 1 azelastine 0.15 % (205.5 mcg) spray,non-aerosol 1 spray INTNAS BID Qty: 30 RF: 5 fluticasone propionate [Flonase Allergy Relief] 50 mcg/actuation spray,suspension 2 spray INTRANASAL QAM Qty: 18.2 RF: 5 allopurinol 300 mg tablet 300 mg PO QAM Qty: 30 RF: 5 omeprazole 20 mg capsule,delayed release(DR/EC) 20 mg PO BID Qty: 180 RF: 3 furosemide 40 mg tablet 80 mg PO QAM PRN (Reason: ADDNTL DOSE [id number]) RF: 0 vitamin B complex tablet 1 tab PO QAM RF: 0 cholecalciferol (vitamin D3) [Vitamin D3] 1,000 unit Tablet 2,000 unit PO QAM Qty: 60 RF: 0 simvastatin 10 mg tablet 10 mg PO HS RF: 0 omega 2-qeu-qih-fish oil [Fish Oil] 1,000 mg (120 mg-180 mg) capsule 1 cap PO QAM RF: 0 ofloxacin 0.3 % drops 5 drp OTL HS PRN (Reason: keep ears clean) RF: 0 ascorbic acid (vitamin C) [Vitamin C] 1,000 mg Tablet 1 g PO QAM RF: 0 zinc 50 mg Tablet 50 mg PO QAM RF: 0 gabapentin 100 mg capsule 100 - 300 mg PO HS RF: 0 tobramycin-dexamethasone 0.3-0.1 % drops,suspension 5 drp OPL DIRECTED RF: 0 metoprolol tartrate 25 mg tablet 12.5 - 25 mg PO DIRECTED RF: 0 Xarelto 15 mg tablet 15 mg PO PM RF: 0 cephalexin 250 mg capsule 250 mg PO QID Qty: 20 RF: 0 Changed spironolactone 25 mg tablet 25 mg PO DAILY Qty: 0 RF: 0 Discharge Orders: Discharge Order (Routine); Ordered 08/22/20 Ordered By: Aftab Quiroz/Other Patient Handouts: A1C, Managing Type 2 Diabetes, 5 Steps for Eating Healthier Admission Data Admit Date/Time: 08/21/20 16:47 Attending Provider: Aftab King Admit Provider: Aftab King Primary Care Provider: Ken Worthington Other Providers: Ken Dillon Other Interventions: Discharge Summary Assessment (RN) Last Done: 08/22/20 13:36 Coding Level of Care Code D/C DAY MANAGEMENT >30 MINS Diagnoses Diastolic CHF I50.30 Hypertension I10 Hypertension type: essential hypertension Afib I48.91 Atrial fibrillation type: unspecified Hyperlipidemia E78.2 Hyperlipidemia type: mixed hyperlipidemia CAD (coronary artery disease) I25.10 DM II (diabetes mellitus, type II), controlled E11.9 Diabetes mellitus prison insulin use: without prison use Diabetes mellitus complication status: without complication COPD (chronic obstructive pulmonary disease) J44.9 COPD type: unspecified COPD Central sleep apnea G47.31 Otorrhea of left ear H92.12 Hyponatremia E87.1 Gait abnormality R26.9
== END 2020-08-22 15:11 | disposition home health service (06) ==
LOC: 3E 12:29 → ED 12:29 → 3E 18:38

== ENCOUNTER 2020-08-28 12:37 | Inpatient (IN) ==
--- NOTE | 2020-08-28 14:18 | Emergency Department Note ---
History of Present Illness General Chief complaint: Referred by Doctor Stated complaint: CELLULITIS IN BOTH LEGS Time Seen by Provider: 08/28/20 14:01 History of Present Illness Provider complaint: lower extremity cellulitis Onset (ago): week(s) Location: lower extremity Radiation: proximal Severity: moderate Maximum Pain Intensity: 5 Quality: + aching Relieved By: + none Exacerbated By: + none Associated symptoms: + denies other symptoms Treatments prior to arrival: other This is an 80-year-old male presents the emergency department at the direction of a [facility] nurse who came to evaluate them due to concern for worsening cellulitis and failed outpatient treatment. Patient states he has had 2 rounds of antibiotics over the last 2 weeks. He does have a prior history of cellulitis. 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 Patient states he has had cephalexin twice for this, no other antibiotics incl uding no Bactrim and no doxycycline. Patient states only revisited again today, the visiting nurse took pictures and sent him to one of his providers who stated he need to come to the emergency room for IV antibiotics and admission. Patient denies fevers, chills, nausea, vomiting, dizziness. Patient was recently admitted for lower extremity edema, the states he had 7 pounds diuresed off of him and he was sent home. Pt seen during a time of high acuity and national emergency pandemic while wearing PPE. Home Medications Medication Instructions Recorded Confirmed Type aspirin 81 mg tablet,delayed 81 mg PO QAM #0 11/04/16 08/28/20 History release ipratropium 0.5 mg-albuterol 3 mg 3 ml INHALATION Q4H PRN #0 inh 11/04/16 08/28/20 History (2.5 mg base)/3 mL nebulization soln albuterol sulfate 2.5 mg INHALATION BID #0 dose 01/16/17 08/28/20 History ferrous sulfate 325 mg (65 mg 325 mg PO QAM #0 03/21/17 08/28/20 History iron) tablet cholecalciferol (vitamin D3) 25 2,000 unit PO QAM #60 tab 02/19/18 08/28/20 Rx mcg (1,000 unit) tablet (Vitamin D3) vitamin B complex 1 tab PO QAM 10/18/18 08/28/20 History travoprost 0.004 % eye drops 1 drp OPB HS 08/14/20 07/23/21 History omega 1-yce-juq-fish oil 1,000 mg 1 cap PO QAM 11/26/19 08/28/20 History (120 mg-180 mg) capsule (Fish Oil) simvastatin 10 mg tablet 10 mg PO HS 11/26/19 08/28/20 History azelastine 205.5 mcg (0.15 %) 1 spray INTNAS BID #30 ml 12/05/19 08/28/20 Rx nasal spray fluticasone 500 mcg-salmeterol 50 1 inh INH BID #60 ea 01/10/20 08/28/20 Rx mcg/dose blistr powdr for inhalation (Advair Diskus) furosemide 40 mg tablet 80 mg PO BID tab 01/13/20 08/28/20 History nitroglycerin 0.4 mg sublingual 0.4 mg SUBLINGUAL PRN PRN #15 tab 06/23/20 08/28/20 Rx tablet (Nitrostat) allopurinol 300 mg tablet 300 mg PO QAM #30 tab 06/30/20 08/28/20 Rx fluticasone propionate 50 2 spray INTRANASAL QAM #18.2 ml 06/30/20 08/28/20 Rx mcg/actuation nasal spray,suspension (Flonase Allergy Relief) ascorbic acid (vitamin C) 1,000 mg 1 g PO QAM 08/21/20 08/28/20 History tablet (Vitamin C) gabapentin 100 mg capsule 100 - 300 mg PO HS 08/21/20 08/28/20 History metoprolol tartrate 25 mg tablet 12.5 - 25 mg PO DIRECTED 08/21/20 08/28/20 History rivaroxaban 15 mg tablet (Xarelto) 15 mg PO QDD 08/21/20 08/28/20 History zinc 50 mg tablet 50 mg PO QAM 08/21/20 08/28/20 History cephalexin 250 mg capsule 250 mg PO QID #20 cap 08/22/20 08/28/20 Rx pantoprazole 40 mg tablet,delayed 40 mg PO DAILYBB 08/28/20 08/28/20 History release (Protonix) spironolactone 25 mg tablet See Rx Instructions .ROUTE .COMPLEX 08/28/20 08/28/20 History Allergies Allergy/AdvReac Type Severity Reaction Status Date / Time No Known Drug Allergies Allergy Unknown Verified 08/28/20 15:35 Past Med/Surg History Medical History Acquired deviated nasal septum Afib Clinton's palsy Chronic hypoxemic respiratory failure Chronic renal insufficiency Complex sleep apnea syndrome COPD (chronic obstructive pulmonary disease) Coronary artery disease DM II (diabetes mellitus, type II), controlled Gout History of heart attack Hx of fracture of pelvis Hyperlipidemia Neuropathy SANDOR (obstructive sleep apnea) nasal CPAP Surgical History History of cataract surgery History of coronary artery stent placement History of dental surgery History of right hip replacement History of tonsillectomy Hx of CABG triple vessel, 2012 Status cardiac pacemaker Family History Family/Other Coronary heart disease Cardiac disorder Hypertension Deafness Hearing loss Other Family history non-contributory Social History Smoking Status: Former smoker Years Smoked: 30; Hx Alcohol Use: No Hx Substance Use: No Preferred Language: Danish Communication Ability: Effective Credentialing Specialist Required: No Beliefs That Will Affect Care: None marital status: marital status details: 2 daughters Current Living Situation: Spouse Current Living Situation Comment: Lives with current occupational status: retired Other Information That Helps Us Care for You: No other: 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 Feels Safe at Home: Yes Safety Concerns: Feels Safe At This Time Assistive Devices: Walker Review of Systems A total of 10 systems reviewed and were otherwise negative All systems reviewed & are unremarkable except as noted in HPI & below Physical Exam Vital Signs Vital Signs - 24 hr 08/28/20 12:47 08/28/20 14:30 Temperature 36.7 C Temperature Source Temporal Artery Scan Pulse Rate 70 Pulse Rate [Apical] 70 Respiratory Rate 18 20 Blood Pressure 123/60 Blood Pressure [Left Arm] 145/84 H Blood Pressure Mean 81 Blood Pressure Mean [Left Arm] 104 Pulse Oximetry 97 96 Oxygen Delivery Method Room Air Sepsis Recent Fever Within 48 Hours No Sepsis New/Unexplained Change in Mental Status No Sepsis Action Taken by Nursing No Action Required GENERAL: alert, well appearing, well nourished, no distress, non-toxic EYE EXAM: normal conjunctiva, PERRL and EOM's grossly intact OROPHARYNX: no exudate, no erythema, lips, buccal mucosa, and tongue normal and mucous membranes are moist NECK: supple, no nuchal rigidity, no adenopathy, non-tender LUNGS: Clear but decreased to auscultation. Normal chest wall mechanics, no w/r/r HEART: no murmurs, S1 normal and S2 normal ABDOMEN: abdomen soft, non-tender, normo-active bowel sounds, no masses, no rebound or guarding. BACK: Back is symmetrical on inspection and there is no deformity, no midline tenderness, no CVA tenderness. SKIN: no rashes and no bruising UPPER EXTREMITIES: upper extremities are grossly normal. FROM, nml pulses b/l. LOWER EXTREMITIES: 4+b/l pitting edema. Erythema noted bilateral lower extremities, worse anteriorly but nearly circumferential. No overlying wounds, vesicles, or bullae. FROM, nml pulses b/l. NEURO EXAM: Normal sensorium, cranial nerves II-XII grossly intact, normal speech, no gross weakness of arms, no gross weakness of legs. Gross sensation intact. Course Course 1632: Sense of bedside conversation with the patient and regarding options of treatment. We discussed oral antibiotics at home. We also discussed IV Dalvance and close follow-up. Patient and feel he needs admitted for IV antibiotics until he shows significant improvement. They do have transportation issues as the patient does not drive and the has vertigo and has been u nable to drive recently also. They have no other friends or family to drive him back and forth including to the 48 to 72-hour visit from [place]. is uncomfortable with the patient coming home given his other chronic comorbidities and now a worsening infection despite outpatient antibiotics on recent hospitalization for lower extremity edema. Administered Medications Allopurinol ([facility]ol 300 Mg Tab) [facility] [place]: 09/28/20 08:59 Last Admin: 08/29/20 08:59 Dose: 300 mg Documented by: [id number] Aspirin (Aspirin 81 Mg Ectab) 81 mg PO QAM [facility] Stop: 09/28/20 08:59 Last Admin: 08/29/20 08:59 Dose: 81 mg Documented by: [id number] Ferrous Sulfate (Ferrous Sulfate 325 Mg Tab) 325 mg PO QAM [facility] Stop: 09/28/20 08:59 Last Admin: 08/29/20 08:59 Dose: 325 mg Documented by: [id number] Fluticasone/Vilanterol (Fluticasone/Vilanterol 100/25mcg 14 Puffs/Inhaler) 1 puffs INH DAILY JAQUELINE; Protocol Stop: 09/28/20 08:59 Last Admin: 08/29/20 08:57 Dose: 1 puffs Documented by: [id number] Furosemide (Furosemide 80 Mg Tab) 80 mg PO BID@0800,1200 JAQUELINE Stop: 09/28/20 07:59 Last Admin: 08/29/20 11:41 Dose: 80 mg Documented by: [id number] Admin: 08/29/20 07:23 Dose: 80 mg Documented by: [id number] Gabapentin (Gabapentin 300 Mg Cap) 300 mg PO HS JAQUELINE Stop: 09/27/20 21:59 Last Admin: 08/28/20 23:11 Dose: 300 mg Documented by: [id number] Vancomycin HCl 1,250 mg/ (Sodium Chloride) 275 mls @ 200 mls/hr IV Q18H JAQUELINE; Protocol Stop: 09/05/20 16:59 Last Infusion: 08/29/20 19:25 Dose: 0 mls/hr Documented by: [id number] Admin: 08/29/20 17:23 Dose: 200 mls/hr Documented by: [id number] Clindamycin Phosphate 600 mg/ (Dextrose) 54 mls @ 100 mls/hr IV Q8H JAQUELINE Stop: 09/04/20 21:59 Last Infusion: 08/29/20 16:35 Dose: 0 mls/hr Documented by: [id number] Infusion: 08/29/20 16:00 Dose: 100 mls/hr Documented by: [id number] Infusion: 08/29/20 15:14 Dose: 0 mls/hr Documented by: [id number] Admin: 08/29/20 15:11 Dose: 100 mls/hr Documented by: [id number] Infusion: 08/29/20 07:26 Dose: 0 mls/hr Documented by: [id number] Admin: 08/29/20 06:37 Dose: 100 mls/hr Documented by: [id number] Infusion: 08/28/20 23:42 Dose: 0 mls/hr Documented by: [id number] Admin: 08/28/20 23:09 Dose: 100 mls/hr Documented by: [id number] Insulin Aspart (Insulin Aspart 100 Units/Ml 3 Ml Pen) 0 units SC ACHS [facility] Stop: 09/27/20 21:59 Last Admin: 08/29/20 18:51 Dose: Not Given Documented by: [id number] Cosigned by: [id number] Admin: 08/29/20 11:59 Dose: Not Given Documented by: [id number] Cosigned by: [id number] Admin: 08/29/20 09:50 Dose: Not Given Documented by: [id number] Cosigned by: [id number] Admin: 08/28/20 23:35 Dose: Not Given Documented by: [id number] Metoprolol Tartrate (Metoprolol Tartrate 25 Mg Tab) [facility] [place]: 09/28/20 08:59 Last Admin: 08/29/20 08:58 Dose: 25 mg Documented by: [id number] Miscellaneous (*Azelastine*Order Awaiting Action) 1 ea N/A QS [facility] Stop: 09/28/20 00:00 Last Admin: 08/29/20 16:35 Dose: Not Given Documented by: [id number] Admin: 08/29/20 08:56 Dose: Not Given Documented by: [id number] Admin: 08/28/20 23:38 Dose: Not Given Documented by: [id number] Pantoprazole Sodium (Pantoprazole 40 Mg Tab) 40 mg PO DAILYBB [facility] Stop: 09/28/20 06:29 Last Admin: 08/29/20 06:38 Dose: 40 mg Documented by: [id number] Rivaroxaban (Rivaroxaban 15 Mg Tab) 15 mg PO QDD [facility] Stop: 09/28/20 16:29 Last Admin: 08/29/20 17:26 Dose: 15 mg Documented by: [id number] Simvastatin (Simvastatin 10 Mg Tab) 10 mg PO HS [facility] Stop: 09/27/20 21:59 Last Admin: 08/28/20 23:10 Dose: 10 mg Documented by: [id number] Spironolactone (Spironolactone 25 Mg Tab) 25 mg PO QAM [facility] Stop: 09/28/20 08:59 Last Admin: 08/29/20 08:59 Dose: 25 mg Documented by: [id number] Spironolactone (Spironolactone 25 Mg Tab) 12.5 mg PO DAILY@1400 [facility] Stop: 09/28/20 13:59 Last Admin: 08/29/20 15:08 Dose: 12.5 mg Documented by: [id number] Travoprost (Travoprost Z 0.004% Oph Soln 2.5 Ml Btl) 1 drops OPB HS [facility] Stop: 09/27/20 21:59 Last Admin: 08/28/20 23:10 Dose: 1 drops Documented by: [id number] Vitamin D (Cholecalciferol 1,000 Units 25 Mcg Tab) 2,000 [facility] [place] Stop: 09/28/20 08:59 Last Admin: 08/29/20 08:59 Dose: 2,000 units Documented by: [id number] Zinc Sulfate (Zinc Sulfate 220 Mg Capsule) [facility] [place] Stop: 09/28/20 08:59 Last Admin: 08/29/20 08:58 Dose: 220 mg Documented by: [id number] Discontinued Medications Doxycycline Hyclate 100 mg/ (Dextrose) 110 mls @ 50 mls/hr IV NOW STA Stop: 08/28/20 18:56 Last Infusion: 08/28/20 21:26 Dose: 0 mls/hr Documented by: [id number] Admin: 08/28/20 18:30 Dose: 50 mls/hr Documented by: [id number] Vancomycin HCl 2,250 mg/ (Sodium Chloride) 545 mls @ 200 mls/hr IV NOW STA Stop: 08/29/20 00:26 Last Infusion: 08/29/20 02:41 Dose: 0 mls/hr Documented by: [id number] Admin: 08/28/20 23:09 Dose: 200 mls/hr Documented by: [id number] Metoprolol Tartrate (Metoprolol Tartrate 25 Mg Tab) 12.5 mg PO ONE ONE Stop: 08/28/20 22:01 Last Admin: 08/28/20 23:10 Dose: 12.5 mg Documented by: [id number] Miscellaneous Information (Nursing To Pharmacy Communication) 1 ea N/A TODAY [facility] Stop: 09/27/20 20:14 Last Admin: 08/28/20 21:29 Dose: Not Given Documented by: [id number] Medical Decision Making Differential Diagnosis Differential diagnosis includees etiologies such as cellulitis, abscess, MRSA infection, DVT, necrotizing fasciitis, dermatitis, drug eruption, as well as others were entertained. Medical Records Attestation: I reviewed the patient's medical records. Home Medications Current Medication List: was personally reviewed by me Laboratory Data Attestation: I reviewed the patient's lab results. Result diagrams: 08/29/20 06:01 08/29/20 06:01 Lab Results 08/28/20 08/28/20 08/28/20 Range/Units 14:30 14:30 14:30 WBC 7.15 (4.8-10.8) K/uL RBC 3.47 L (4.7-6.1) M/uL Hgb 11.1 L (14.0-18.0) g/dL Hct 33.5 L (42-52) % MCV 96.5 (80-100) fL MCH 32.0 (25-34) pg MCHC 33.1 (32-36) g/dL RDW Std Deviation 51.6 H (36.4-46.3) fL RDW Coeff of Inez 14.6 H (11.5-14.5) % Plt Count 270 (130-400) K/uL MPV 10.1 (7.4-10.4) fL Immature Gran % (Auto) 0.3 % Neut % (Auto) 77.6 % Lymph % (Auto) 9.0 % [place] % (Auto) 9.4 % Eos % (Auto) 3.6 % Baso % (Auto) 0.1 % Neut # (Auto) 5.55 (1.4-6.5) K/uL Lymph # (Auto) 0.64 L (1.2-3.4) K/uL [place] # (Auto) 0.67 H (0.11-0.59) K/uL Eos # (Auto) 0.26 (0-0.5) K/uL Baso # (Auto) 0.01 (0-0.2) K/uL Immature Gran # (Auto) 0.02 (0.00-0.02) K/uL Sodium 127 L (136-145) mmol/L Potassium (3.5-5.1) mmol/L Chloride 93 L (98-107) mmol/L Carbon Dioxide 29 (21-32) mmol/L Anion Gap 5.0 (3-11) BUN 26 H (7-18) mg/dl Creatinine 1.40 (0.6-1.4) mg/dl Est Cr Clr Drug Dosing Not Reportable Est GFR ( Amer) 53.8 ml/min Est GFR (Non-Af Amer) 46.5 ml/min BUN/Creatinine Ratio 18.4 (10-20) Glucose 94 (70-99) mg/dl Lactate Cancelled Calcium 9.2 (8.5-10.1) mg/dl Total Bilirubin 0.5 (0.2-1) mg/dl AST (15-37) U/L ALT 37 (12-78) U/L Alkaline Phosphatase 99 (45-117) U/L Total Protein 9.7 H (6.4-8.2) gm/dl Albumin 2.5 L (3.4-5.0) gm/dl Globulin 7.2 H (2.5-4.0) gm/dl Albumin/Globulin Ratio 0.3 L (0.9-2) Procalcitonin COVID-19 Eval Order SARS-CoV-2 (PCR) (Negative) 08/28/20 08/28/20 08/28/20 Range/Units 14:30 15:34 15:34 WBC (4.8-10.8) K/uL RBC (4.7-6.1) M/uL Hgb (14.0-18.0) g/dL Hct (42-52) % MCV (80-100) fL MCH (25-34) pg MCHC (32-36) g/dL RDW Std Deviation (36.4-46.3) fL RDW Coeff of Inez (11.5-14.5) % Plt Count (130-400) K/uL MPV (7.4-10.4) fL Immature Gran % (Auto) % Neut % (Auto) % Lymph % (Auto) % [place] % (Auto) % Eos % (Auto) % Baso % (Auto) % Neut # (Auto) (1.4-6.5) K/uL Lymph # (Auto) (1.2-3.4) K/uL [place] # (Auto) (0.11-0.59) K/uL Eos # (Auto) (0-0.5) K/uL Baso # (Auto) (0-0.2) K/uL Immature Gran # (Auto) (0.00-0.02) K/uL Sodium (136-145) mmol/L Potassium (3.5-5.1) mmol/L Chloride (98-107) mmol/L Carbon Dioxide (21-32) mmol/L Anion Gap (3-11) BUN (7-18) mg/dl Creatinine (0.6-1.4) mg/dl Est Cr Clr Drug Dosing Est GFR ( Amer) ml/min Est GFR (Non-Af Amer) ml/min BUN/Creatinine Ratio (10-20) Glucose (70-99) mg/dl Lactate 1.9 Calcium (8.5-10.1) mg/dl Total Bilirubin (0.2-1) mg/dl AST (15-37) U/L ALT (12-78) U/L Alkaline Phosphatase (45-117) U/L Total Protein (6.4-8.2) gm/dl Albumin (3.4-5.0) gm/dl Globulin (2.5-4.0) gm/dl Albumin/Globulin Ratio (0.9-2) Procalcitonin Cancelled 0.18 COVID-19 Eval Order SARS-CoV-2 (PCR) (Negative) 08/28/20 08/28/20 08/28/20 Range/Units 15:34 17:00 17:00 WBC (4.8-10.8) K/uL RBC (4.7-6.1) M/uL Hgb (14.0-18.0) g/dL Hct (42-52) % MCV (80-100) fL MCH (25-34) pg MCHC (32-36) g/dL RDW Std Deviation (36.4-46.3) fL RDW Coeff of Inez (11.5-14.5) % Plt Count (130-400) K/uL MPV (7.4-10.4) fL Immature Gran % (Auto) % Neut % (Auto) % Lymph % (Auto) % [place] % (Auto) % Eos % (Auto) % Baso % (Auto) % Neut # (Auto) (1.4-6.5) K/uL Lymph # (Auto) (1.2-3.4) K/uL [place] # (Auto) (0.11-0.59) K/uL Eos # (Auto) (0-0.5) K/uL Baso # (Auto) (0-0.2) K/uL Immature Gran # (Auto) (0.00-0.02) K/uL Sodium (136-145) mmol/L Potassium 4.4 (3.5-5.1) mmol/L Chloride (98-107) mmol/L Carbon Dioxide (21-32) mmol/L Anion Gap (3-11) BUN (7-18) mg/dl Creatinine (0.6-1.4) mg/dl Est Cr Clr Drug Dosing Est GFR ( Amer) ml/min Est GFR (Non-Af Amer) ml/min BUN/Creatinine Ratio (10-20) Glucose (70-99) mg/dl Lactate Calcium (8.5-10.1) mg/dl Total Bilirubin (0.2-1) mg/dl AST 30 (15-37) U/L ALT (12-78) U/L Alkaline Phosphatase (45-117) U/L Total Protein (6.4-8.2) gm/dl Albumin (3.4-5.0) gm/dl Globulin (2.5-4.0) gm/dl Albumin/Globulin Ratio (0.9-2) Procalcitonin COVID-19 Eval Order Covid19 at [facility] SARS-CoV-2 (PCR) NEGATIVE (Negative) MDM Narrative This is an ill-appearing 80-year-old male with several chronic comorbidities who presents due to concern for worsening bilateral lower extremity cellulitis. Patient had been taking cephalexin as an outpatient although it is unclear why the outpatient providers did not offer other antibiotic coverage as patient does have a history of MRSA. Patient with a history of chronic kidney disease and CHF and was recently admitted for diuresis has had increased lower extremity edema at that time. Patient denies any recent trauma. Patient is anticoagulated and I do not suspect occult DVT. Patient was afebrile and otherwise well-appearing here, denied any systemic symptoms. I had a lengthy discussion at bedside with the patient and his regarding options for antibiotic treatment. They are uncomfortable going home. We even discussed Dalvance and close follow-up and they are uncomfortable with this also as they have no way to secure a repeat visit to recheck the involved areas per protocol. Given comorbidities, and the need for ongoing evaluation, case discussed with hospitalist for additional evaluation and management. At this time I do not suspect bacteremia/sepsis, necrotizing fasciitis, or occult trauma. An order was placed for continuous cardiac monitoring. The monitor shows a rate of _90_ with _a.fib_ rhythm. Impression & Plan Cellulitis, Chronic acquired lymphedema, CKD (chronic kidney disease) Discharge Plan Visit Data Chief Complaint: Referred by Doctor Stated Complaint: CELLULITIS IN BOTH LEGS ED Provider: Elina Blancas Discharge Problem: Cellulitis, Chronic acquired lymphedema, CKD (chronic kidney disease) Patient Disposition: Admitted As Inpatient Discharge Instructions Interventions: ED Discharge Assessment Last Done: 08/28/20 21:48 Discharge Problem: Cellulitis Qualifiers: Site of cellulitis: extremity Site of cellulitis of extremity: lower extremity Laterality: unspecified laterality Qualified Code(s): L03.119 - Cellulitis of unspecified part of limb CKD (chronic kidney disease) Qualifiers: Chronic kidney disease stage: unspecified stage Qualified Code(s): N18.9 - Chronic kidney disease, unspecified
[2020-08-28 14:45] LABS: Basophils # (auto) 0.01 K/uL (0-0.2); Basophils % (auto) 0.1 %; Eosinophils # (auto) 0.26 K/uL (0-0.5); Eosinophils % (auto) 3.6 %; Hematocrit (blood only) 33.5 % (42-52); Hemoglobin 11.1 g/dL (14.0-18.0); Immature Granulocytes # (auto) 0.02 K/uL (0.00-0.02); Immature Granulocytes % (auto) 0.3 %; Lymphocytes # (auto) 0.64 K/uL (1.2-3.4); Mean Corpuscular Hgb Conc 33.1 g/dL (32-36); Mean Corpuscular Volume 96.5 fL (80-100); Mean Platelet Volume 10.1 fL (7.4-10.4); Monocytes # (auto) 0.67 K/uL (0.11-0.59); Monocytes % (auto) 9.4 %; Neutrophils # (auto) 5.55 K/uL (1.4-6.5); Neutrophils % (auto) 77.6 %; Platelet Count 270 K/uL (130-400); RDW Coefficient of Variation 14.6 % (11.5-14.5); RDW Standard Deviation 51.6 fL (36.4-46.3); Red Blood Count 3.47 M/uL (4.7-6.1); White Blood Count 7.15 K/uL (4.8-10.8)
[2020-08-28 15:15] LABS: Alanine Aminotransferase 37 U/L (12-78); Albumin Globulin Ratio 0.3 (0.9-2); Albumin Level 2.5 gm/dl (3.4-5.0); Alkaline Phosphatase 99 U/L (45-117); BUN Creatinine Ratio 18.4 (10-20); Bilirubin,Total 0.5 mg/dl (0.2-1); Blood Urea Nitrogen 26 mg/dl (7-18); Calcium 9.2 mg/dl (8.5-10.1); Carbon Dioxide 29 mmol/L (21-32); Chloride 93 mmol/L (98-107); Est GFR (African American) 53.8 ml/min; Est GFR (Non-African American) 46.5 ml/min; Globulin 7.2 gm/dl (2.5-4.0); Glucose 94 mg/dl (70-99); Sodium 127 mmol/L (136-145); Total Protein 9.7 gm/dl (6.4-8.2)
[2020-08-28 16:01] LABS: Potassium 4.4 mmol/L (3.5-5.1)
[2020-08-28] MEDS ORDERED: DOXYCYCLINE HYCLATE 100 MG in DEXTROSE 5% 100 ML IV STA (16:45)
--- NOTE | 2020-08-28 19:30 | History & Physical Report ---
Date of Service August 28, 2020 Assessment & Plan (1) CAD (coronary artery disease): (2) Cellulitis: (3) Hypertension: (4) Hyperlipidemia: (5) DM II (diabetes mellitus, type II), controlled: (6) Diastolic CHF: (7) CKD (chronic kidney disease), stage III: Plan: 80 y/o M Hx HTN, HLD, DMII, CKD III, AF - pacer, CAD, CHF, COPD, obese, SANDOR. The pt was recently DCd from the hospital after being treated for volume overload. He developed erythema, pain and swelling of his LLE a few days prior. He was treated with Keflex to no avail. He reports that he could not put his shoe on today and returned to the ER therefore. He has not had any fever and states that he otherwise feels great. The pt was offered Dalvance but stated that he had no transport to return to the hospital for follow up. Labs are notable for acute hyponatremia and otherwise represent the pt's baseline. 1) Cellulitis - placed on Vanc and Clinda. Area is poorly delineated. 2) Hyponatremia - will fluid restrict for now, although he will need AM reassessment as he recently increased his Lasix dose. His renal function is no worse. 3) CHF - clinically he is not volume overloaded - will cont Aldactone, Lasix, beta gonsalo 4) CAD - metoprolol, statin, NTG PRN 5) CKD III - stable 6) AF - Xarelto, metoprolol, rhythm is paced 7) DM - sliding scale 8) COPD - cont prescribed inhalers 9) SANDOR - CPAP Full code - Xarelto prophylaxis Total time for this admit including review of labs, meds, imaging, records - discussion with pt and ER attending - 50 min History of Present Illness Chief Complaint: Cellulitis LLE Primary Care Provider: Sharmaine Munoz, DO 80 y/o M Hx HTN, HLD, DMII, CKD III, AF - pacer, CAD, CHF, COPD, obese, SANDOR. The pt was recently DCd from the hospital after being treated for volume overload. He developed erythema, pain and swelling of his LLE a few days prior. He was treated with Keflex to no avail. He reports that he could not put his shoe on today and returned to the ER therefore. He has not had any fever and states that he otherwise feels great. The pt was offered Dalvance but stated that he had no transport to return to the hospital for follow up. Labs are notable for acute hyponatremia and otherwise represent the pt's baseline. PMH: 1) HTN 2) HLD 3) DM II 4) CKD III 5) Atrial fibrillation 6) Pacer 7) COPD 8) Obese 9) SANDOR 10) Glaucoma 11) CAD Surgical: 1) CABG - 3 vessel 2012 2) R ZAYDA 3) Pacer Social: Does not drink or smoke. 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 Family: Noncontributory Allergies Allergy/AdvReac Type Severity Reaction Status Date / Time No Known Drug Allergies Allergy Unknown Verified 08/28/20 15:35 Home Medications Medication Instructions Recorded Confirmed Type aspirin 81 mg tablet,delayed 81 mg PO QAM #0 11/04/16 08/28/20 History release ipratropium 0.5 mg-albuterol 3 mg 3 ml INHALATION Q4H PRN #0 inh 11/04/16 08/28/20 History (2.5 mg base)/3 mL nebulization soln albuterol sulfate 2.5 mg INHALATION BID #0 dose 01/16/17 08/28/20 History ferrous sulfate 325 mg (65 mg 325 mg PO QAM #0 03/21/17 08/28/20 History iron) tablet cholecalciferol (vitamin D3) 25 2,000 unit PO QAM #60 tab 02/19/18 08/28/20 Rx mcg (1,000 unit) tablet (Vitamin D3) vitamin B complex 1 tab PO QAM 10/18/18 08/28/20 History travoprost 0.004 % eye drops 1 drp OPB HS 09/20/19 08/28/20 History omega 0-dby-iqk-fish oil 1,000 mg 1 cap PO QAM 11/26/19 08/28/20 History (120 mg-180 mg) capsule (Fish Oil) simvastatin 10 mg tablet 10 mg PO HS 11/26/19 08/28/20 History azelastine 205.5 mcg (0.15 %) 1 spray INTNAS BID #30 ml 12/05/19 08/28/20 Rx nasal spray fluticasone 500 mcg-salmeterol 50 1 inh INH BID #60 ea 01/10/20 08/28/20 Rx mcg/dose blistr powdr for inhalation (Advair Diskus) furosemide 40 mg tablet 80 mg PO BID tab 01/13/20 08/28/20 History nitroglycerin 0.4 mg sublingual 0.4 mg SUBLINGUAL PRN PRN #15 tab 06/23/20 08/28/20 Rx tablet (Nitrostat) allopurinol 300 mg tablet 300 mg PO QAM #30 tab 06/30/20 08/28/20 Rx fluticasone propionate 50 2 spray INTRANASAL QAM #18.2 ml 06/30/20 08/28/20 Rx mcg/actuation nasal spray,suspension (Flonase Allergy Relief) ascorbic acid (vitamin C) 1,000 mg 1 g PO QAM 08/21/20 08/28/20 History tablet (Vitamin C) gabapentin 100 mg capsule 100 - 300 mg PO HS 08/21/20 08/28/20 History metoprolol tartrate 25 mg tablet 12.5 - 25 mg PO DIRECTED 08/21/20 08/28/20 History rivaroxaban 15 mg tablet (Xarelto) 15 mg PO QDD 08/21/20 08/28/20 History zinc 50 mg tablet 50 mg PO QAM 08/21/20 08/28/20 History cephalexin 250 mg capsule 250 mg PO QID #20 cap 08/22/20 08/28/20 Rx pantoprazole 40 mg tablet,delayed 40 mg PO DAILYBB 08/28/20 08/28/20 History release (Protonix) spironolactone 25 mg tablet See Rx Instructions .ROUTE .COMPLEX 08/28/20 08/28/20 History Past Med/Surg History Medical History Acquired deviated nasal septum Afib Clinton's palsy Chronic hypoxemic respiratory failure Chronic renal insufficiency Complex sleep apnea syndrome COPD (chronic obstructive pulmonary disease) Coronary artery disease DM II (diabetes mellitus, type II), controlled Gout History of heart attack Hx of fracture of pelvis Hyperlipidemia Neuropathy SANDOR (obstructive sleep apnea) nasal CPAP Surgical History History of cataract surgery History of coronary artery stent placement History of dental surgery History of right hip replacement History of tonsillectomy Hx of CABG triple vessel, 2012 Status cardiac pacemaker Family History Family/Other Coronary heart disease Cardiac disorder Hypertension Deafness Hearing loss Other Family history non-contributory Social History Smoking Status: Never smoker Years Smoked: 30; Hx Alcohol Use: No Hx Substance Use: No Preferred Language: Divehi Communication Ability: Effective Spinner Continuous Required: No Beliefs That Will Affect Care: None marital status: marital status details: 2 daughters Current Living Situation: Spouse Current Living Situation Comment: Lives with current occupational status: 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 Feels Safe at Home: Yes Assistive Devices: Denture - Upper, Denture - Lower, Glasses and Hearing Aid - Bilateral Review of Systems Review of Systems: Gen: Denies fevers, night sweats, rigors, fatigue, malaise, weight loss/gain ENT: Denies congestion, throat pain, hearing loss Eyes: Denies acute visual changes CV: Denies CP, palpitations Pulmonary: Denies SOB, cough, wheezing GI: Denies N/V, diarrhea, constipation Neuro: Denies acute or unilateral weakness, acute gait impairment, headache or acute visual changes Musculoskeletal: Swelling of the LLE and RLE to a lesser extent Endocrine: Denies polydipsia, polyuria Skin: Erythema of the LEs BL Physical Exam Physical Exam: General: AAO x 3, no distress ENT: No erythema or exudates, no thrush Eyes: MECHE, EOMI Head and neck: Normocephalic, atraumatic, No JVD, neck is supple. Chest/heart: Nontender, S1,2, RRR, no murmurs, no gallops Lungs: CTAB, no wheezing or crackles Abdomen: Nontender, nondistended, BS+ Neuro: AAO x 3, speech is clear, no unilateral weakness or loss of sensation, coordination intact Musculoskeletal: BL edema and inflammation L > R Skin: No acute rashes or ulcers Extremities: BL edema - BL erythema - the L is considerably more swollen Results & Data Results & Data ([facility]) Vital Signs (Past 12 Hours) Vital Signs Temp Pulse Pulse Resp BP BP Pulse Ox 08/28/20 16:57 80 18 130/77 96 08/28/20 14:30 70 20 145/84 H 96 08/28/20 12:47 98.1 F 70 18 123/60 97 PG Care Time/CCT Total # of Minutes Spent Total Time Spent with Patient: Total time spent is greater than 50% in coordination of care (as documented) at patient's floor/unit and/or counseling patient: Coding Level of Care Code 49470 Initial Inpt Care Lvl 3 Diagnoses CAD (coronary artery disease) I25.10 Cellulitis L03.90 Hypertension I10 Hypertension type: essential hypertension Hyperlipidemia E78.2 Hyperlipidemia type: mixed hyperlipidemia DM II (diabetes mellitus, type II), controlled E11.9 Diabetes mellitus care home insulin use: without care home use Diabetes mellitus complication status: without complication Diastolic CHF I50.30 CKD (chronic kidney disease), stage III N18.30 (1) Hypertension Hypertension type: essential hypertension Qualified Code(s): I10 - Essential (primary) hypertension (2) Hyperlipidemia Hyperlipidemia type: mixed hyperlipidemia Qualified Code(s): E78.2 - Mixed hyperlipidemia (3) DM II (diabetes mellitus, type II), controlled 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
[2020-08-28] MEDS ORDERED: Nursing to Pharmacy Communication SCH (20:15)
[2020-08-28] MEDS ORDERED: DEXTROSE 50% 50 ML SYRINGE IV PRN (21:25)
[2020-08-28] MEDS ORDERED: GLUCOSE 10 TABS/TUBE PO PRN (21:25)
[2020-08-28] MEDS ORDERED: CARBOHYDRATES FOR HYPOGLYCEMIA PO PRN (21:25)
[2020-08-28] MEDS ORDERED: NITROGLYCERIN SL 0.4 MG/TAB TAB SL PRN (21:25)
[2020-08-28] MEDS ORDERED: VANCOMYCIN CONSULT ACTIVE PRN (21:25)
[2020-08-28] MEDS ORDERED: GLUCOSE 40% GEL 15 GM TUBE PO PRN (21:25)
[2020-08-28] MEDS ORDERED: GLUCAGON FOR INJ 1 MG VIAL SQ PRN (21:25)
[2020-08-28] MEDS ORDERED: VANCOMYCIN HCL 2,250 MG in SODIUM CHLORIDE 0.9% 500 ML IV STA (21:43)
[2020-08-28] MEDS ORDERED: METOPROLOL TARTRATE 25 MG TAB PO ONE (22:00)
[2020-08-28] MEDS ORDERED: ALBUT/IPRATROP 3MG/0.5MG NEB 3 ML VIAL INH PRN (23:00)
[2020-08-28] MEDS: CLINDAMYCIN 600 MG in DEXTROSE 5% 50 ML IV SCH (23:09)
[2020-08-28] MEDS: TRAVOPROST Z 0.004% OPH SOLN 2.5 ML BTL OPB SCH (23:10)
[2020-08-28] MEDS: SIMVASTATIN 10 MG TAB PO SCH (23:10)
[2020-08-28] MEDS: GABAPENTIN 300 MG CAP PO SCH (23:11)
[2020-08-28] MEDS: INSULIN ASPART 100 UNITS/ML 3 ML PEN SC SCH (23:35)
[2020-08-28] MEDS: *AZELASTINE*ORDER AWAITING ACTION SCH (23:38)
--- NOTE | 2020-08-28 23:43 | Pharmacy Report ---
Pharmacy Abx Dose Short Note - Date of Service August 28, 2020 - Assessment & Plan Assessment 80 year old M admitted this evening secondary to left lower extremity cellulitis * PMHx significant for HTN, HLD, DMII, CKD III, AFib w/ PPM, CAD, and COPD * Recently admitted at [facility] for heart failure exacerbation/volume overload. Developed erythema, pain and swelling of LLE a few days prior to this admission. Was discharged on Keflex but failed outpatient therapy. Other recent abx include doxycycline, cefdinir and azithromycin. Does have a history of MRSA and Clostridium spp that grew in a buttocks wound culture in April 2019. * Afebrile and without leukocytosis. Renal fxn appears to be at baseline. Procalcitonin was 0.18 ng/mL. * No cultures Plan Vancomycin * Loading Dose: 2250 mg (20 mg/kg) IV x 1 * Maintenance Dose: 1250 mg (11 mg/kg) IV every 18 hours * Targeting a goal AUC/MIGUELANGEL of 400-600 mg/L.hr * AUC/MIGUELANGEL is the preferred PK/PD target for Vancomycin dosing * Current maintenance dose is expected to achieve steady state AUC/MIGUELANGEL and troughs of 587 mg/L.hr and 19.8 mcg/mL, respectively * Trough will be ordered prior to steady state on 08/30/20 before the 1100 dose to assess appropriateness of current dose Clindamycin - NOT a pharmacy consult * 600 mg IV every 8 hours is appropriate for indication Pharmacy will continue to follow and will adjust dose/frequency as necessary. Thank you.
[2020-08-29 06:19] LABS: Basophils # (auto) 0.01 K/uL (0-0.2); Basophils % (auto) 0.2 %; Eosinophils # (auto) 0.24 K/uL (0-0.5); Eosinophils % (auto) 5.6 %; Hematocrit (blood only) 30.9 % (42-52); Hemoglobin 10.1 g/dL (14.0-18.0); Lymphocytes # (auto) 0.65 K/uL (1.2-3.4); Lymphocytes % (auto) 15.3 %; Mean Corpuscular Hemoglobin 31.6 pg (25-34); Mean Corpuscular Hgb Conc 32.7 g/dL (32-36); Mean Corpuscular Volume 96.6 fL (80-100); Monocytes # (auto) 0.48 K/uL (0.11-0.59); Monocytes % (auto) 11.3 %; Neutrophils # (auto) 2.87 K/uL (1.4-6.5); Neutrophils % (auto) 67.6 %; Platelet Count 271 K/uL (130-400); RDW Coefficient of Variation 14.6 % (11.5-14.5); RDW Standard Deviation 51.5 fL (36.4-46.3); White Blood Count 4.25 K/uL (4.8-10.8)
[2020-08-29] MEDS: CLINDAMYCIN 600 MG in DEXTROSE 5% 50 ML IV SCH ×3 (06:37→21:27)
[2020-08-29] MEDS: PANTOprazole 40 MG TAB PO SCH (06:38)
[2020-08-29 06:43] LABS: BUN Creatinine Ratio 17.6 (10-20); Calcium 9.2 mg/dl (8.5-10.1); Creatinine Clr Calc Pharmacy 56.7 ml/min; Est GFR (African American) 65.5 ml/min; Est GFR (Non-African American) 56.5 ml/min; Magnesium 2.1 mg/dl (1.8-2.4); Potassium 4.1 mmol/L (3.5-5.1)
[2020-08-29] MEDS: FUROSEMIDE 80 MG TAB PO SCH ×2 (07:23→11:41)
[2020-08-29] MEDS: *AZELASTINE*ORDER AWAITING ACTION SCH ×3 (08:56→22:27)
[2020-08-29] MEDS: FLUTICASONE/VILANTEROL 100/25MCG 14 PUFFS/INHALER INH SCH (08:57)
[2020-08-29] MEDS: ZINC SULFATE 220 MG CAPSULE PO SCH (08:58)
[2020-08-29] MEDS: METOPROLOL TARTRATE 25 MG TAB PO SCH (08:58)
[2020-08-29] MEDS: SPIRONOLACTONE 25 MG TAB PO SCH ×2 (08:59→15:08)
[2020-08-29] MEDS: allopurinoL 300 MG TAB PO SCH (08:59)
[2020-08-29] MEDS: CHOLECALCIFEROL 1,000 UNITS 25 MCG TAB PO SCH (08:59)
[2020-08-29] MEDS: ASPIRIN 81 MG ECTAB PO SCH (08:59)
[2020-08-29] MEDS: FERROUS SULFATE 325 MG TAB PO SCH (08:59)
[2020-08-29] MEDS: INSULIN ASPART 100 UNITS/ML 3 ML PEN SC SCH ×4 (09:50→20:56)
--- NOTE | 2020-08-29 14:48 | Hospitalist Progress Note ---
Date of Service August 29, 2020 Assessment & Plan (1) Cellulitis: Plan: - Admitted 08/21 to 08/22 for volume overload; developed LE edema + erythema of bilat LE following discharge to home. - Has primarily LLE cellulitis noted but does have some mild erythema and warmth to palpation on RLE. - Continue Clindamycin + Vancomycin for empiric coverage; de-escalate IV abx as tolerated, will continue for an additional 24 hours. - Has remained afebrile; no leukocytosis noted on labs, vital signs stable. (2) Hyponatremia: Plan: - Placed on fluid restriction of 1500 cc; Na level has improved from 127 to 131. - Does have bilat LE pitting edema, +2. - Continue Lasix 80 mg PO BID - re-evaluate volume status daily. - His weight actually appears decreased, was 113 kg in July and is now down to 110 kg. (3) Anemia: Plan: - Baseline Hgb 10 to 11.5 gm/dL, normocytic. - Continue to monitor CBC frequently. - Continue home Ferrous sulfate daily. (4) CAD (coronary artery disease): Plan: - Continue statin, beta gonsalo, ASA; Nitro prn. (5) Hypertension: Plan: - Continue home meds. (6) Hyperlipidemia: Plan: - Continue home statin. (7) DM II (diabetes mellitus, type II), controlled: Plan: - SSI coverage. - Most recent A1C was 6.3 on 08/22/20. (8) Diastolic CHF: Plan: - Continue home Metoprolol, Aldactone, Lasix. - Follow I/O's - his weight does appear stable at this point. - 1500 cc fluid restriction - has had improvemnet in hyponatremia. - Patient does have +2 pitting LE edema on exam. (9) Afib: Plan: - Continue home Xarelto, Metoprolol - Does not require telemetry. (10) COPD (chronic obstructive pulmonary disease): Plan: - Continue home meds. (11) Sleep apnea: Plan: - CPAP - is not ordered as inpatient. (12) CKD (chronic kidney disease), stage III: Plan: - Stable. DVT ppx: Continue home . Xarelto Dispo: Med/surg; continue IV abx, de-escalate over the next 24-48 hours. PT/OT evaluation ordered. Admission and Anticipated Discharge Date Admission Date: August 28, 2020 Supervising Physician Co-Signing Physician Notes Attending Attestation - Personal bedside assessment was not performed. However, chart reviewed in detail, and care plan d/w PA Areli Medel. I agree with the lin components of her documentation. Ken Dillon MD Subjective Mr. Mane is an 80 y/o male, currently admitted for LLE cellulitis. He remains on Clindamycin/Vancomycin for empiric coverage. Redness of LLE has slightly improved; does have mild redness of RLE as well. He denies calf pain, increased edema in legs compared to baseline. He has remained afebrile throughout hospital course. Review of Systems Review of Systems: Constitutional: Negative for weight loss, night sweats, or fever Cardiovascular: Negative for anginal type chest pain, palpitations, dizziness, diaphoresis Respiratory: Negative for new shortness of breath,hemoptysis, or purulent cough Gastrointestinal: Negative for diarrhea, hematemesis, melena, nausea, vomiting, or dyspepsia Integumentary (skin): Negative for rash or jaundice discoloration Genitourinary: Negative for urinary frequency, hematuria, or dysuria Neurological: Negative for weakness, seizure activity, headache, or dizziness Lymphatic/Hematologic: Negative for petechiae, bleeding or new adenopathy Musculoskeletal: Negative for new joint or back pain Allergic/Immunologic: +Redness and swelling of bilat calves. Physical Exam Physical Exam: Constitutional: Vitals are stable Respiratory: Scattered wheezing in all lung quarles. Cardiovascular: Heart was RRR without significant murmur, gallops or rubs. Gastrointestinal: No palpable hepatic or splenomegaly. The abdomen was soft with normal bowel sounds. Lymphatic system: There was no palpable peripheral lymphadenopathy. Musculoskeletal System: The musculoskeletal system seemed concordant with age. Skin: The skin was negative for jaundice. Extremities: +2 bilat pitting LE edema; erythema of left distal extremity, warm to palpation. Mild erythema noted on right distal extremity. No open wounds. Results & Data Results & Data ([facility] [place]) Vital Signs (Past 12 Hours) Vital Signs Temp Pulse Pulse Resp BP Pulse Ox 08/29/20 06:53 36.5 C 65 16 138/67 92 08/29/20 02:55 74 13 95 Laboratory Results 07/24/21 07/24/21 07/24/21 Range/Units 11:53 08:17 06:01 WBC (4.8-10.8) K/uL RBC (4.7-6.1) M/uL Hgb (14.0-18.0) g/dL Hct (42-52) % MCV (80-100) fL MCH (25-34) pg MCHC (32-36) g/dL RDW Std Deviation (36.4-46.3) fL RDW Coeff of Inez (11.5-14.5) % Plt Count (130-400) K/uL MPV (7.4-10.4) fL Immature Gran % (Auto) % Neut % (Auto) % Lymph % (Auto) % Spink % (Auto) % Eos % (Auto) % Baso % (Auto) % Neut # (Auto) (1.4-6.5) K/uL Lymph # (Auto) (1.2-3.4) K/uL Spink # (Auto) (0.11-0.59) K/uL Eos # (Auto) (0-0.5) K/uL Baso # (Auto) (0-0.2) K/uL Immature Gran # (Auto) (0.00-0.02) K/uL Sodium 131 L (136-145) mmol/L Potassium 4.1 (3.5-5.1) mmol/L Chloride 96 L (98-107) mmol/L Carbon Dioxide 30 (21-32) mmol/L Anion Gap 5.0 (3-11) BUN 21 H (7-18) mg/dl Creatinine 1.19 (0.6-1.4) mg/dl Est Cr Clr Drug Dosing 56.7 Est GFR ( Amer) 65.5 ml/min Est GFR (Non-Af Amer) 56.5 ml/min BUN/Creatinine Ratio 17.6 (10-20) Glucose 88 (70-99) mg/dl POC Glucose 149 H 114 H (70-99) mg/dl Lactate Calcium 9.2 (8.5-10.1) mg/dl Magnesium 2.1 (1.8-2.4) mg/dl Total Bilirubin (0.2-1) mg/dl AST (15-37) U/L ALT (12-78) U/L Alkaline Phosphatase (45-117) U/L Total Protein (6.4-8.2) gm/dl Albumin (3.4-5.0) gm/dl Globulin (2.5-4.0) gm/dl Albumin/Globulin Ratio (0.9-2) Procalcitonin COVID-19 Eval Order SARS-CoV-2 (PCR) (Negative) 08/29/20 08/28/20 08/28/20 Range/Units 06:01 23:08 17:00 WBC 4.25 L (4.8-10.8) K/uL RBC 3.20 L (4.7-6.1) M/uL Hgb 10.1 L (14.0-18.0) g/dL Hct 30.9 L (42-52) % MCV 96.6 (80-100) fL MCH 31.6 (25-34) pg MCHC 32.7 (32-36) g/dL RDW Std Deviation 51.5 H (36.4-46.3) fL RDW Coeff of Inez 14.6 H (11.5-14.5) % Plt Count 271 (130-400) K/uL MPV 10.0 (7.4-10.4) fL Immature Gran % (Auto) 0.0 % Neut % (Auto) 67.6 % Lymph % (Auto) 15.3 % Spink % (Auto) 11.3 % Eos % (Auto) 5.6 % Baso % (Auto) 0.2 % Neut # (Auto) 2.87 (1.4-6.5) K/uL Lymph # (Auto) 0.65 L (1.2-3.4) K/uL Spink # (Auto) 0.48 (0.11-0.59) K/uL Eos # (Auto) 0.24 (0-0.5) K/uL Baso # (Auto) 0.01 (0-0.2) K/uL Immature Gran # (Auto) 0.00 (0.00-0.02) K/uL Sodium (136-145) mmol/L Potassium (3.5-5.1) mmol/L Chloride (98-107) mmol/L Carbon Dioxide (21-32) mmol/L Anion Gap (3-11) BUN (7-18) mg/dl Creatinine (0.6-1.4) mg/dl Est Cr Clr Drug Dosing Est GFR ( Amer) ml/min Est GFR (Non-Af Amer) ml/min BUN/Creatinine Ratio (10-20) Glucose (70-99) mg/dl POC Glucose 107 H (70-99) mg/dl Lactate Calcium (8.5-10.1) mg/dl Magnesium (1.8-2.4) mg/dl Total Bilirubin (0.2-1) mg/dl AST (15-37) U/L ALT (12-78) U/L Alkaline Phosphatase (45-117) U/L Total Protein (6.4-8.2) gm/dl Albumin (3.4-5.0) gm/dl Globulin (2.5-4.0) gm/dl Albumin/Globulin Ratio (0.9-2) Procalcitonin COVID-19 Eval Order SARS-CoV-2 (PCR) NEGATIVE (Negative) 08/28/20 08/28/20 08/28/20 Range/Units 17:00 15:34 15:34 WBC (4.8-10.8) K/uL RBC (4.7-6.1) M/uL Hgb (14.0-18.0) g/dL Hct (42-52) % MCV (80-100) fL MCH (25-34) pg MCHC (32-36) g/dL RDW Std Deviation (36.4-46.3) fL RDW Coeff of Inez (11.5-14.5) % Plt Count (130-400) K/uL MPV (7.4-10.4) fL Immature Gran % (Auto) % Neut % (Auto) % Lymph % (Auto) % Spink % (Auto) % Eos % (Auto) % Baso % (Auto) % Neut # (Auto) (1.4-6.5) K/uL Lymph # (Auto) (1.2-3.4) K/uL Spink # (Auto) (0.11-0.59) K/uL Eos # (Auto) (0-0.5) K/uL Baso # (Auto) (0-0.2) K/uL Immature Gran # (Auto) (0.00-0.02) K/uL Sodium (136-145) mmol/L Potassium 4.4 (3.5-5.1) mmol/L Chloride (98-107) mmol/L Carbon Dioxide (21-32) mmol/L Anion Gap (3-11) BUN (7-18) mg/dl Creatinine (0.6-1.4) mg/dl Est Cr Clr Drug Dosing Est GFR ( Amer) ml/min Est GFR (Non-Af Amer) ml/min BUN/Creatinine Ratio (10-20) Glucose (70-99) mg/dl POC Glucose (70-99) mg/dl Lactate Calcium (8.5-10.1) mg/dl Magnesium (1.8-2.4) mg/dl Total Bilirubin (0.2-1) mg/dl AST 30 (15-37) U/L ALT (12-78) U/L Alkaline Phosphatase (45-117) U/L Total Protein (6.4-8.2) gm/dl Albumin (3.4-5.0) gm/dl Globulin (2.5-4.0) gm/dl Albumin/Globulin Ratio (0.9-2) Procalcitonin 0.18 COVID-19 Eval Order Covid19 at [facility] SARS-CoV-2 (PCR) (Negative) 08/28/20 08/28/20 08/28/20 Range/Units 15:34 14:30 14:30 WBC (4.8-10.8) K/uL RBC (4.7-6.1) M/uL Hgb (14.0-18.0) g/dL Hct (42-52) % MCV (80-100) fL MCH (25-34) pg MCHC (32-36) g/dL RDW Std Deviation (36.4-46.3) fL RDW Coeff of Inez (11.5-14.5) % Plt Count (130-400) K/uL MPV (7.4-10.4) fL Immature Gran % (Auto) % Neut % (Auto) % Lymph % (Auto) % Spink % (Auto) % Eos % (Auto) % Baso % (Auto) % Neut # (Auto) (1.4-6.5) K/uL Lymph # (Auto) (1.2-3.4) K/uL Spink # (Auto) (0.11-0.59) K/uL Eos # (Auto) (0-0.5) K/uL Baso # (Auto) (0-0.2) K/uL Immature Gran # (Auto) (0.00-0.02) K/uL Sodium 127 L (136-145) mmol/L Potassium (3.5-5.1) mmol/L Chloride 93 L (98-107) mmol/L Carbon Dioxide 29 (21-32) mmol/L Anion Gap 5.0 (3-11) BUN 26 H (7-18) mg/dl Creatinine 1.40 (0.6-1.4) mg/dl Est Cr Clr Drug Dosing Not Reportable Est GFR ( Amer) 53.8 ml/min Est GFR (Non-Af Amer) 46.5 ml/min BUN/Creatinine Ratio 18.4 (10-20) Glucose 94 (70-99) mg/dl POC Glucose (70-99) mg/dl Lactate 1.9 Calcium 9.2 (8.5-10.1) mg/dl Magnesium (1.8-2.4) mg/dl Total Bilirubin 0.5 (0.2-1) mg/dl AST (15-37) U/L ALT 37 (12-78) U/L Alkaline Phosphatase 99 (45-117) U/L Total Protein 9.7 H (6.4-8.2) gm/dl Albumin 2.5 L (3.4-5.0) gm/dl Globulin 7.2 H (2.5-4.0) gm/dl Albumin/Globulin Ratio 0.3 L (0.9-2) Procalcitonin Cancelled COVID-19 Eval Order SARS-CoV-2 (PCR) (Negative) 08/28/20 08/28/20 Range/Units 14:30 14:30 WBC 7.15 (4.8-10.8) K/uL RBC 3.47 L (4.7-6.1) M/uL Hgb 11.1 L (14.0-18.0) g/dL Hct 33.5 L (42-52) % MCV 96.5 (80-100) fL MCH 32.0 (25-34) pg MCHC 33.1 (32-36) g/dL RDW Std Deviation 51.6 H (36.4-46.3) fL RDW Coeff of Inez 14.6 H (11.5-14.5) % Plt Count 270 (130-400) K/uL MPV 10.1 (7.4-10.4) fL Immature Gran % (Auto) 0.3 % Neut % (Auto) 77.6 % Lymph % (Auto) 9.0 % Spink % (Auto) 9.4 % Eos % (Auto) 3.6 % Baso % (Auto) 0.1 % Neut # (Auto) 5.55 (1.4-6.5) K/uL Lymph # (Auto) 0.64 L (1.2-3.4) K/uL Spink # (Auto) 0.67 H (0.11-0.59) K/uL Eos # (Auto) 0.26 (0-0.5) K/uL Baso # (Auto) 0.01 (0-0.2) K/uL Immature Gran # (Auto) 0.02 (0.00-0.02) K/uL Sodium (136-145) mmol/L Potassium (3.5-5.1) mmol/L Chloride (98-107) mmol/L Carbon Dioxide (21-32) mmol/L Anion Gap (3-11) BUN (7-18) mg/dl Creatinine (0.6-1.4) mg/dl Est Cr Clr Drug Dosing Est GFR ( Amer) ml/min Est GFR (Non-Af Amer) ml/min BUN/Creatinine Ratio (10-20) Glucose (70-99) mg/dl POC Glucose (70-99) mg/dl Lactate Cancelled Calcium (8.5-10.1) mg/dl Magnesium (1.8-2.4) mg/dl Total Bilirubin (0.2-1) mg/dl AST (15-37) U/L ALT (12-78) U/L Alkaline Phosphatase (45-117) U/L Total Protein (6.4-8.2) gm/dl Albumin (3.4-5.0) gm/dl Globulin (2.5-4.0) gm/dl Albumin/Globulin Ratio (0.9-2) Procalcitonin COVID-19 Eval Order SARS-CoV-2 (PCR) (Negative) PG Care Time/CCT Total # of Minutes Spent Total Time Spent with Patient: Total time spent is greater than 50% in coordination of care (as documented) at patient's floor/unit and/or counseling patient: [place] [address] Subseq Hosp Care Lvl 2 Patient Type Established Diagnoses CAD (coronary artery disease) I25.10 Cellulitis L03.90 Hypertension I10 Hypertension type: essential hypertension Hyperlipidemia E78.2 Hyperlipidemia type: mixed hyperlipidemia DM II (diabetes mellitus, type II), controlled E11.9 Diabetes mellitus complication status: without complication Diabetes mellitus [facility] insulin use: without [facility] use Diastolic CHF I50.30 CKD (chronic kidney disease), stage III N18.30 Hyponatremia E87.1 Anemia D64.9 Afib I48.91 Atrial fibrillation type: unspecified COPD (chronic obstructive pulmonary disease) J44.9 COPD type: unspecified COPD Sleep apnea G47.30 (1) Afib Atrial fibrillation type: unspecified Qualified Code(s): I48.91 - Unspecified atrial fibrillation (2) Hyperlipidemia Hyperlipidemia type: mixed hyperlipidemia Qualified Code(s): E78.2 - Mixed hyperlipidemia (3) DM II (diabetes mellitus, type II), controlled Diabetes mellitus complication status: without complication Diabetes mellitus [facility] insulin use: 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
[2020-08-29] MEDS ORDERED: RIVAROXABAN 15 MG TAB PO SCH (16:30)
[2020-08-29] MEDS: VANCOMYCIN HCL 1,250 MG in SODIUM CHLORIDE 0.9% 250 ML IV SCH (17:23)
[2020-08-29] MEDS ORDERED: METOPROLOL TARTRATE 25 MG TAB PO SCH (21:00)
[2020-08-29] MEDS: GABAPENTIN 300 MG CAP PO SCH (21:26)
[2020-08-29] MEDS: SIMVASTATIN 10 MG TAB PO SCH (21:26)
[2020-08-29] MEDS: TRAVOPROST Z 0.004% OPH SOLN 2.5 ML BTL OPB SCH (21:27)
[2020-08-30] MEDS: PANTOprazole 40 MG TAB PO SCH (05:48)
[2020-08-30 07:51] LABS: Hematocrit (blood only) 31.2 % (42-52); Hemoglobin 10.4 g/dL (14.0-18.0); Mean Corpuscular Hemoglobin 31.7 pg (25-34); Mean Corpuscular Hgb Conc 33.3 g/dL (32-36); Mean Corpuscular Volume 95.1 fL (80-100); Mean Platelet Volume 10.2 fL (7.4-10.4); Platelet Count 290 K/uL (130-400); RDW Coefficient of Variation 14.5 % (11.5-14.5); RDW Standard Deviation 50.1 fL (36.4-46.3); Red Blood Count 3.28 M/uL (4.7-6.1); White Blood Count 4.41 K/uL (4.8-10.8)
[2020-08-30 08:10] LABS: Albumin Level 2.4 gm/dl (3.4-5.0); Calcium 9.7 mg/dl (8.5-10.1); Creatinine Clr Calc Pharmacy 50.3 ml/min; Est GFR (African American) 56.8 ml/min
[2020-08-30 08:13] LABS: Albumin Globulin Ratio 0.3 (0.9-2); Bilirubin,Total 0.4 mg/dl (0.2-1); Total Protein 9.4 gm/dl (6.4-8.2)
[2020-08-30] MEDS: CHOLECALCIFEROL 1,000 UNITS 25 MCG TAB PO SCH (08:32)
[2020-08-30] MEDS: FERROUS SULFATE 325 MG TAB PO SCH (08:32)
[2020-08-30] MEDS: SPIRONOLACTONE 25 MG TAB PO SCH ×2 (08:32→14:21)
[2020-08-30] MEDS: FUROSEMIDE 80 MG TAB PO SCH ×2 (08:32→11:12)
[2020-08-30] MEDS: ZINC SULFATE 220 MG CAPSULE PO SCH (08:32)
[2020-08-30] MEDS: METOPROLOL TARTRATE 25 MG TAB PO SCH (08:32)
[2020-08-30] MEDS: allopurinoL 300 MG TAB PO SCH (08:32)
[2020-08-30] MEDS: ASPIRIN 81 MG ECTAB PO SCH (08:32)
[2020-08-30] MEDS: FLUTICASONE/VILANTEROL 100/25MCG 14 PUFFS/INHALER INH SCH (08:33)
[2020-08-30] MEDS: *AZELASTINE*ORDER AWAITING ACTION SCH (08:33)
[2020-08-30] MEDS: CLINDAMYCIN 600 MG in DEXTROSE 5% 50 ML IV SCH (10:04)
[2020-08-30] MEDS ORDERED: VANCOMYCIN TROUGH ONE (10:30)
[2020-08-30] MEDS: INSULIN ASPART 100 UNITS/ML 3 ML PEN SC SCH ×2 (10:36→13:18)
[2020-08-30] MEDS: VANCOMYCIN HCL 1,250 MG in SODIUM CHLORIDE 0.9% 250 ML IV SCH (11:18)
--- NOTE | 2020-08-30 14:36 | Discharge Summary ---
Date of Service August 30, 2020 Admission HPI Per Admitting Provider 80 y/o M Hx HTN, HLD, DMII, CKD III, AF - pacer, CAD, CHF, COPD, obese, SANDOR. The pt was recently DCd from the hospital after being treated for volume overload. He developed erythema, pain and swelling of his LLE a few days prior. He was treated with Keflex to no avail. He reports that he could not put his shoe on today and returned to the ER therefore. He has not had any fever and states that he otherwise feels great. The pt was offered Dalvance but stated that he had no transport to return to the hospital for follow up. Labs are notable for acute hyponatremia and otherwise represent the pt's baseline. PMH: 1) HTN 2) HLD 3) DM II 4) CKD III 5) Atrial fibrillation 6) Pacer 7) COPD 8) Obese 9) SANDOR 10) Glaucoma 11) CAD Surgical: 1) CABG - 3 vessel 2012 2) R ZAYDA 3) Pacer Social: Does not drink or smoke. 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 Chest/heart: Nontender, S1,2, RRR, no murmurs, no gallops Lungs: CTAB, no wheezing or crackles Abdomen: Nontender, nondistended, BS+ Neuro: AAO x 3, speech is clear, no unilateral weakness or loss of sensation, coordination intact Musculoskeletal: BL edema and inflammation L > R Skin: No acute rashes or ulcers Extremities: BL edema - BL erythema - the L is considerably more swollenPhysical Principal Diagnosis Left lower extremity cellulitis Discharge Exam Constitutional + obese; no acute distress ENMT Ears: no hearing impairment Neck trachea midline, no thyromegaly Respiratory normal respiratory effort, lungs clear to auscultation Cardiovascular Rate/Rhythm: regular rate and regular rhythm Extremities: + edema (non-pitting) Gastrointestinal (Abdomen) Inspection/Auscultation: normal bowel sounds Percussion/Palpation: abdomen soft; abdomen nontender Musculoskeletal Head/Neck/Chest: head atraumatic Skin no rashes LLE cellulitis is resolving. Mild erythema with hemosiderosis staining noted. No open or draining areas. Non-pitting edema noted. Mild erythema and hemosiderosis staining of the RLE noted on exam as well. No open or draining area. Non-pitting edema. Psychiatric A+Ox3, euthymic affect Discharge Data Allergies Allergy/AdvReac Type Severity Reaction Status Date / Time No Known Drug Allergies Allergy Unknown Verified 09/02/20 10:01 Consultations 08/28/20 19:32 ED Decision to Admit Stat Hospital Course (1) Cellulitis: - Admitted 08/21 to 08/22 for volume overload; developed LE edema + erythema of bilat LE following discharge to home. - Had primarily LLE cellulitis noted but did have some mild erythema and warmth to palpation on RLE.---> cellulitis is nearly resolved today. - Was on Clindamycin + Vancomycin for empiric coverage; will de-escalate IV abx to oral, and discharge home on a 7 day course of doxycycline based on history of MRSA on culture of buttock from 04/07/20 - Has remained afebrile; no leukocytosis noted on labs, vital signs stable. (2) Hyponatremia: - Placed on fluid restriction of 1500 cc; Na level has improved from 127 to 131. 129 this AM. - BLE non-pitting edema on exam today. - Continue home Lasix 80 mg PO BID - - His weight actually appears decreased, was 113 kg in July and is now down to 109 kg. (3) Anemia: - H&H stable at 10.4 and 31.2 this morning. - Baseline Hgb 10 to 11.5 gm/dL, normocytic. - Continue home Ferrous sulfate daily. (4) CAD (coronary artery disease): -Continue statin, beta gonsalo, ASA; Nitro prn. (5) Hypertension: -BP is stable at 138/82 today. -Continue home meds. (6) Hyperlipidemia: -Continue statin. (7) DM II (diabetes mellitus, type II), controlled: - SSI coverage - Last HgbA1C was 6.3 on 08/22/20. (8) Diastolic CHF: - Continue home Metoprolol, Aldactone, Lasix. - Follow I/O's - his weight does appear stable at this point. - 1500 cc fluid restriction - has had improvement in hyponatremia. - BLE edema improved. - Follows with Dr. Jordan Parson for CHF as an outpatient. Will need to follow- up with him in the next week. (9) Afib: - Continue home Xarelto, Metoprolol - Does not require telemetry. (10) COPD (chronic obstructive pulmonary disease): - Continue home meds. (11) Sleep apnea: - Has a CPAP at home (12) CKD (chronic kidney disease), stage III: - Stable. - Cr is 1.34 today. DVT ppx: Continue home Xarelto Dispo: D/c home today on doxycycline. Total Time Total Time Spent Total Time Spent (In Minutes): >30 minutes Total Time Includes: Examination of the Patient, Discharge Planning, Medication Reconciliation and Communication With Other Providers Discharge Plan Discharge Items Patient Disposition: Home - Home Health Services Reason For Visit: CELLULITIS Discharge Diagnosis: Lower lower extremity cellulitis Condition on Discharge: Good Activity: Resume your previous activity Driving/Machine Use: No limitations Non-emergency contact: Primary Care Provider Call non-emergency contact if: you have any medication questions, your symptoms worsen and you have a fever Follow-up/Referrals: Sharmaine Munoz DO [Primary Care Provider] - Diet: Carb Consistent or DM2 and Low Sodium (2gm) Fluids: 1500ml (6 cups) Addtl Attending Provider Instructions: Follow-up with Dr. Jordan Parson in 1 week for heart failure. Follow-up with PCP Dr. Munoz in 1 week. Pending Studies at Discharge: No Stand-Alone Forms: [facility] Medications and DC Order Prescriptions: Continued ipratropium-albuterol 0.5 mg-3 mg(2.5 mg base)/3 mL Solution For Nebulization 3 ml INHALATION Q4H PRN (Reason: Shortness Of Breath) Qty: 0 RF: 0 aspirin 81 mg Tablet,Delayed Release (Dr/Ec) 81 mg PO QAM Qty: 0 RF: 0 albuterol sulfate 2.5 mg /3 mL (0.083 %) Solution For Nebulization 2.5 mg INHALATION BID Qty: 0 RF: 0 ferrous sulfate 325 mg (65 mg iron) Tablet 325 mg PO QAM Qty: 0 RF: 0 fluticasone propion-salmeterol [Advair Diskus] 500-50 mcg/dose blister with device 1 inh INH BID Qty: 60 RF: 11 nitroglycerin [Nitrostat] 0.4 mg tablet, sublingual 0.4 mg Sublingual PRN PRN (Reason: chest pain) Qty: 15 RF: 0 travoprost 0.004 % drops 1 drp OPB HS RF: 0 fluticasone propionate [Flonase Allergy Relief] 50 mcg/actuation spray,suspension 2 spray INTRANASAL QAM Qty: 18.2 RF: 5 allopurinol 300 mg tablet 300 mg PO QAM Qty: 30 RF: 5 furosemide 40 mg tablet 80 mg PO BID RF: 0 vitamin B complex tablet 1 tab PO QAM RF: 0 cholecalciferol (vitamin D3) [Vitamin D3] 1,000 unit Tablet 2,000 unit PO QAM Qty: 60 RF: 0 simvastatin 10 mg tablet 10 mg PO HS RF: 0 omega 7-kpk-bei-fish oil [Fish Oil] 1,000 mg (120 mg-180 mg) capsule 1 cap PO QAM RF: 0 pantoprazole [Protonix] 40 mg tablet,delayed release (DR/EC) 40 mg PO DAILYBB RF: 0 spironolactone 25 mg tablet See Rx Instructions .ROUTE .COMPLEX RF: 0 ascorbic acid (vitamin C) [Vitamin C] 1,000 mg Tablet 1 g PO QAM RF: 0 zinc 50 mg Tablet 50 mg PO QAM RF: 0 gabapentin 100 mg capsule 100 - 300 mg PO HS RF: 0 metoprolol tartrate 25 mg tablet 12.5 - 25 mg PO DIRECTED RF: 0 Xarelto 15 mg tablet 15 mg PO QDD RF: 0 Discontinued cephalexin 250 mg capsule 250 mg PO QID Qty: 20 RF: 0 No Action azelastine 205.5 mcg (0.15 %) spray,non-aerosol 1 spray INTNAS BID Qty: 30 RF: 5 Discharge Orders: Discharge Order (Routine); Ordered 08/30/20 Ordered By: Ely Luna Admission Data Admit Date/Time: 08/28/20 20:03 Attending Provider: Mundo Smith Admit Provider: Mundo Smith Primary Care Provider: Sharmaine Munoz Other Providers: Mundo Smith ; Saud [facility] Other Interventions: Discharge Summary Assessment (RN) Last Done: 08/30/20 14:44 Supervising Physician Co-Signing Physician Notes Attending Attestation - Pt seen/examined, chart reviewed, care plan d/w [facility] Ely Luna. I agree w/ the lin components of her discharge documentation. 80yo male with numerous medical problems as delineated above - recent hospitalization for decompensated CHF - who presented with b/l LE cellulitis, L>R. Improved rapidly on IV antibiotic therapy. PE: VSS, afebrile gen - obese, NAD heart - RRR, s1 s2 lungs - modestly decreased BS bases, otherwise no rales or wheeze abd - soft NT ND ext - 1+ edema b/l (per patient this is baseline for him), pulses 2+ b/l skin - chronic venous stasis changes b/l; there is mild pink skin of both shins, worse on left, but no warmth or tenderness A/P: 1. nearly-resolved LE cellulitis; agree w/ d/c home on doxycycline x 1 week (pt with prior h/o MRSA). 2. chronic right-sided CHF - compensated. f/u PCP in 3-4 days to recheck legs f/u within 1 week with [facility] given his recent decompensated CHF no changes in cardiac meds at time of this discharge Ken Dillon MD Coding Level of Care Code D/C DAY MANAGEMENT >30 MINS Diagnoses Cellulitis L03.119 Laterality: unspecified laterality Site of cellulitis: extremity Site of cellulitis of extremity: lower extremity Hyponatremia E87.1 Anemia D64.9 CAD (coronary artery disease) I25.10 Hypertension I10 Hypertension type: essential hypertension Hyperlipidemia E78.2 Hyperlipidemia type: mixed hyperlipidemia DM II (diabetes mellitus, type II), controlled E11.9 Diabetes mellitus complication status: without complication Diabetes mellitus correction insulin use: without correction use Diastolic CHF I50.30 Afib I48.91 Atrial fibrillation type: unspecified COPD (chronic obstructive pulmonary disease) J44.9 COPD type: unspecified COPD Sleep apnea G47.30 CKD (chronic kidney disease), stage III N18.30
== END 2020-08-30 15:25 | disposition home health service (06) | DRG 603 ==
LOC: ED 12:37 → 3N 20:03

== ENCOUNTER 2020-09-28 15:28 | Inpatient (IN) ==
[2020-09-28] MEDS ORDERED: ACETAMINOPHEN 1,000 MG/100 ML VIAL IV STA (16:19)
[2020-09-28] MEDS ORDERED: MoRPHine SULFATE 2 MG/ML CARP IV STA (16:19)
[2020-09-28] MEDS ORDERED: DIPHTHERIA/TETANUS/PERTUSSIS 0.5 ML SYR/VIAL IM ONE (16:21)
--- NOTE | 2020-09-28 16:50 | XRay Report ---
SINGLE VIEW PELVIS; 3 VIEWS RIGHT FEMUR CLINICAL HISTORY: Fall. FINDINGS: An AP supine view of the pelvis with AP, frog-leg, and crosstable lateral views of the righ t femur are compared to studies dated 02/14/2018. The skeletal structures are osteopenic. There is no r adiographic evidence of acute fracture involving the left hip or bony pelvis. There is an acute nondi splaced fracture through the superior aspect of the greater trochanter of the right femur. No additio nal findings are concerning for right femoral fracture. Moderate degenerative joint space narrowing i s seen in the left hip. A bipolar right hip arthroplasty is in near-anatomic alignment. Extensive pos toperative change is seen involving the right acetabulum with cortical lag screws and buttress plates in place. There is chronic posttraumatic deformity of the distal femoral shaft with a buttress plate in place along the lateral cortex. Numerous cortical screws transfix the plate. The orthopedic hardw are appears intact. The right knee joint is grossly maintained. The overlying soft tissues are within normal limits. Advanced atherosclerotic calcification is seen in the femoral and popliteal arteries. Lumbosacral spondylosis is partially visualized. IMPRESSION: 1. There is no radiographic evidence of acute fracture involving the left hip or bony pelvis. 2. There is a nondisplaced fracture through the greater trochanter of the right femur. 3. No additional findings are concerning for acute right femoral fracture. 4. Additional chronic and postoperative findings as above. Electronically signed by: Laci Steele M.D. 09/28/2020 4:49 PM
[2020-09-28 17:05] LABS: Eosinophils # (auto) 0.12 K/uL (0-0.5); Eosinophils % (auto) 1.7 %; Hematocrit (blood only) 29.6 % (42-52); Hemoglobin 9.6 g/dL (14.0-18.0); Immature Granulocytes # (auto) 0.01 K/uL (0.00-0.02); Immature Granulocytes % (auto) 0.1 %; Lymphocytes # (auto) 0.56 K/uL (1.2-3.4); Lymphocytes % (auto) 7.8 %; Mean Corpuscular Hemoglobin 31.7 pg (25-34); Mean Corpuscular Hgb Conc 32.4 g/dL (32-36); Mean Corpuscular Volume 97.7 fL (80-100); Mean Platelet Volume 10.1 fL (7.4-10.4); Monocytes # (auto) 0.53 K/uL (0.11-0.59); Monocytes % (auto) 7.4 %; Neutrophils # (auto) 5.93 K/uL (1.4-6.5); Platelet Count 252 K/uL (130-400); RDW Coefficient of Variation 15.4 % (11.5-14.5); RDW Standard Deviation 54.5 fL (36.4-46.3); Red Blood Count 3.03 M/uL (4.7-6.1); White Blood Count 7.15 K/uL (4.8-10.8)
--- NOTE | 2020-09-28 17:18 | CT Scan Report ---
HEAD CT NONCONTRAST CT DOSE: HISTORY: Head laceration. pain fall, xarelto TECHNIQUE: Multiaxial CT images of the head were performed without the use of intravenous contrast. A utomated exposure control was utilized for this study. A dose lowering technique was utilized adheri ng to the principles of ALARA. Comparison: None. Findings: The paranasal sinuses and mastoid air cells are clear. The calvarium and skull base are int act. There is no mass, hematoma, midline shift, acute infarct. White matter hypodensity is nonspecifi c but suggestive of microvascular ischemic change. The ventricles and sulci demonstrate mild age-rela shima involutional changes. Motion artifact. Mild right posterior scalp swelling. Impression: Motion artifact. No definite acute intracranial abnormality. ACT 112: Negative or not required by law. Electronically signed by: Chepe Vaughn M.D. 09/28/2020 5:17 PM
[2020-09-28 17:23] LABS: Albumin Level 2.4 gm/dl (3.4-5.0); BUN Creatinine Ratio 20.9 (10-20); Calcium 9.9 mg/dl (8.5-10.1); Creatinine Clr Calc Pharmacy 44.5 ml/min; Est GFR (African American) 48.4 ml/min; Est GFR (Non-African American) 41.7 ml/min; Potassium 4.4 mmol/L (3.5-5.1)
[2020-09-28 17:26] LABS: Albumin Globulin Ratio 0.3 (0.9-2); Bilirubin,Total 0.5 mg/dl (0.2-1); Globulin 7.5 gm/dl (2.5-4.0); Total Protein 9.9 gm/dl (6.4-8.2)
--- NOTE | 2020-09-28 17:30 | XRay Report ---
XR chest 1V portable HISTORY: pain fall COMPARISON: Chest 09/15/2020. FINDINGS: No pneumothorax. No pleural effusions. The heart is mildly enlarged. There are poststernoto my changes. There is mild central pulmonary vascular congestion without overt edema. A few bibasilar linear densities consistent with subsegmental atelectasis. This left-sided pacemaker. IMPRESSION: Mild central pulmonary vascular congestion without overt edema. ACT 112: Negative or not required by law. Electronically signed by: Chepe Vaughn M.D. 09/28/2020 5:29 PM
--- NOTE | 2020-09-28 17:51 | CT Scan Report ---
CT SCAN OF THE ABDOMEN AND PELVIS WITHOUT IV CONTRAST CLINICAL HISTORY: Fall. Right hip pain. COMPARISON STUDY: Abdominal CT pelvic CT dated 11/04/2016. Pelvic radiographs dated 09/28/2020. TECHNIQUE: CT scan of the abdomen and pelvis is performed from the lung bases to the proximal femora. Images are reviewed in the axial, sagittal, and coronal planes. IV contrast was not administered for this examination. Note that the examination is suboptimal without IV contrast. Examination is also d egraded by motion artifact. A dose lowering technique was utilized adhering to the principles of FRANCISCO J Kowalski. CT DOSE: 2478.39 mGy.cm FINDINGS: Lung bases: The patient is status post midline sternotomy. The heart is enlarged and without pericard ial effusion. There is lipomatous hypertrophy of the interatrial septum. The coronary arteries are de nsely calcified. The lung bases are clear noting bibasilar scarring/atelectasis. A tiny hiatal hernia is noted. Liver: The unenhanced liver is cirrhotic in morphology and heterogeneous in attenuation. There is nod ularity of the hepatic surface contour. There is no intrahepatic biliary ductal dilatation. Gallbladder: The gallbladder is filled with calcified stones. There is no CT evidence of acute cholec ystitis. Spleen: Normal in size and attenuation. There are calcified splenic granulomas. Pancreas: The unenhanced pancreas is moderately atrophic and grossly unremarkable. Adrenal glands: Unremarkable. Kidneys: The unenhanced kidneys are atrophic and without hydronephrosis. There is a 4 mm nonobstructi ng right renal calculus. No left renal calculi are Identified. There is no evidence of contour deform ing renal mass lesion. Abdominal vasculature: The abdominal aorta is normal in course and caliber noting advanced atheroscle rotic calcification. Bowel: There is moderate colonic diverticulosis without CT evidence of acute diverticulitis. No bowel obstruction is seen. The appendix is well-visualized and normal. Peritoneum: There is no intraperitoneal free air or abdominal ascites. Lymphadenopathy: None. Pelvic viscera: Evaluation of the pelvis is degraded by streak artifact from a right hip arthroplasty . The prostate gland is diminutive and heterogeneous. The bladder is mildly distended but otherwise n ormal in appearance. There is a fat-containing right inguinal hernia. There is intramuscular hemorrha ge within the right iliacus. Skeletal structures: The skeletal structures are osteopenic. There is a right hip arthroplasty in xochilt ce with previous buttress plate fixation of the acetabulum and right ischium. There is a periprosthet ic fracture of the right proximal femur, centered around the greater trochanter and intertrochanteric region. There is mild surrounding hemorrhage. No additional acute fracture is identified. Chronic po sttraumatic deformity is noted in the right ischium. There is moderate to advanced the sacral spondyl osis and mild scoliosis. No lytic or blastic lesions are seen. IMPRESSION: 1. There is a nondisplaced periprosthetic fracture of the right proximal femur, predominantly involvi ng the greater trochanter and intertrochanteric region. 2. There is hemorrhage surrounding the fracture, as well as intramuscular hemorrhage within the right iliacus. 3. No additional acute fracture is identified. 4. There is no evidence of solid organ injury in the abdomen or pelvis on this unenhanced examination . 5. Cirrhotic liver morphology. 6. Cholelithiasis. 7. Right-sided nephrolithiasis. 8. Additional findings as above. ACT 112: Negative or not required by law. Electronically signed by: Laci Steele M.D. 09/28/2020 5:50 PM
[2020-09-28 18:04] LABS: INR 1.3 (0.9-1.1); Partial Thromboplastin Ratio 1.5; Partial Thromboplastin Time 38.8 Seconds (21.0-31.0); Prothrombin Time 13.1 Seconds (9.0-12.0)
--- NOTE | 2020-09-28 19:51 | History & Physical Report ---
Date of Service September 28, 2020 Assessment & Plan (1) 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: Plan: CT on admission showed nondisplaced periprosthetic fracture of the right proximal femur along with a hemorrhage around the fracture. - Orthopedics consulted by ED - Non-weightbearing until cleared by orthopedics - Monitor CBC given hemorrhage. Vital presently stable. - NPO @ midnight in case he needs surgery (2) CAD (coronary artery disease): Plan: Stents in 2009 and CABG in 2011. - Hold ASA - Continue low-dose beta-gonsalo & statin (3) Chronic diastolic (congestive) heart failure: Plan: Follows with Faina Dubon. Appears euvolemic on exam today. Per , he is doing well, but it has been hard to manage fluid status at home. - Hold Lasix & spironolactone - Consulted Faina Dubon to help us monitor volume status (4) CKD (chronic kidney disease), stage III: Plan: Baseline Cr. ~1.2 - 1.4. - Cr presently 1.5, so does not meet YEIMI criteria. - Hold diuretics as above - Monitor Cr (5) Afib: Plan: EKG on admission showed ventricularly-paced rhythm. He has a BiV pacemaker. - Hold Xarelto - Continue beta-gonsalo as above (6) Hypertension: Plan: BP presently 137/60. - Appears to be about baseline. - Continue beta-gonsalo - Hold diuretics (7) COPD (chronic obstructive pulmonary disease): Plan: No shortness of breath or indication of exacerbation. - Continue Advair BID - DuoNebs PRN (8) DM II (diabetes mellitus, type II), controlled: Plan: A1cs all below 6.5%, but high of 6.4%. - Monitor blood sugars on AM labs. - If high, consider starting sliding scale insulin (9) Depression: Plan: No indication of SI/HI on my interview. - Continue SSRI (10) DVT prophylaxis: Plan: SCDs - Holding heparin for hematoma and possible need for surgery History of Present Illness Primary Care Provider: Sharmaine Munoz DO 80yo M w/ hx of CAD, CHF, and recent admission for cellulitis who presents with fall and periprosthetic fracture to the right femur. He reports that he was in a good state of health at home. His right leg had been giving out some at home. He reports that today, his leg gave out while he kind of twisted, and he just went down on his right hip. Unfortunately, he had immediate onset of pain and required EMS to help him get up. At the present time, he is more comfortable in bed after pain medication administration. He denies that he hit his head or had any loss of consciousness. He denies any prodrome such as lightheadedness, chest pain, shortness of breath, dizziness, or other symptoms prior to his fall. Allergies Allergy/AdvReac Type Severity Reaction Status Date / Time No Known Drug Allergies Allergy Unknown Verified 09/28/20 17:54 Home Medications Medication Instructions Recorded Confirmed Type aspirin 81 mg tablet,delayed 81 mg PO QAM #0 11/04/16 09/28/20 History release ipratropium 0.5 mg-albuterol 3 mg 3 ml INHALATION Q4H PRN #0 inh 11/04/16 09/28/20 History (2.5 mg base)/3 mL nebulization soln albuterol sulfate 2.5 mg INHALATION BID #0 dose 01/16/17 09/28/20 History ferrous sulfate 325 mg (65 mg 325 mg PO QAM #0 03/21/17 09/28/20 History iron) tablet cholecalciferol (vitamin D3) 25 2,000 unit PO QAM #60 tab 02/19/18 09/28/20 Rx mcg (1,000 unit) tablet (Vitamin D3) vitamin B complex 1 tab PO QAM 10/18/18 09/28/20 History travoprost 0.004 % eye drops 1 drp OPB HS 09/20/19 09/28/20 History omega 1-bki-gqf-fish oil 1,000 mg 1 cap PO QAM 11/26/19 09/28/20 History (120 mg-180 mg) capsule (Fish Oil) simvastatin 10 mg tablet 10 mg PO HS 11/26/19 09/28/20 History fluticasone 500 mcg-salmeterol 50 1 inh INH BID #60 ea 01/10/20 09/28/20 Rx mcg/dose blistr powdr for inhalation (Advair Diskus) furosemide 40 mg tablet 80 mg PO BID tab 01/13/20 09/28/20 History nitroglycerin 0.4 mg sublingual 0.4 mg SUBLINGUAL PRN PRN #15 tab 06/23/20 09/28/20 Rx tablet (Nitrostat) allopurinol 300 mg tablet 300 mg PO QAM #30 tab 06/30/20 09/28/20 Rx fluticasone propionate 50 2 spray INTRANASAL QAM #18.2 ml 06/30/20 09/28/20 Rx mcg/actuation nasal spray,suspension (Flonase Allergy Relief) ascorbic acid (vitamin C) 1,000 mg 1 g PO QAM 08/21/20 09/28/20 History tablet (Vitamin C) gabapentin 100 mg capsule 100 - 300 mg PO HS 08/21/20 09/28/20 History metoprolol tartrate 25 mg tablet 12.5 - 25 mg PO DIRECTED 08/21/20 09/28/20 History zinc 50 mg tablet 50 mg PO QAM 08/21/20 09/28/20 History pantoprazole 40 mg tablet,delayed 40 mg PO DAILYBB 08/28/20 09/28/20 History release (Protonix) spironolactone 25 mg tablet 12.5 - 25 mg PO BID 08/28/20 09/28/20 History azelastine 205.5 mcg (0.15 %) 1 spray INTNAS BID #30 ml 09/10/20 09/28/20 Rx nasal spray rivaroxaban 15 mg tablet (Xarelto) 15 mg PO HS tab 09/17/20 09/28/20 History acetaminophen 325 mg tablet 650 mg PO QID PRN 09/28/20 09/28/20 History (Tylenol) escitalopram oxalate 5 mg tablet 5 mg PO QDD 09/28/20 09/28/20 History (Lexapro) Past Med/Surg History Medical History Acquired deviated nasal septum Afib Clinton's palsy CAD (coronary artery disease) Chronic acquired lymphedema Chronic diastolic (congestive) heart failure Chronic hypoxemic respiratory failure Chronic renal insufficiency CKD (chronic kidney disease), stage III Complex sleep apnea syndrome COPD (chronic obstructive pulmonary disease) Cor pulmonale Coronary artery disease Depression DM II (diabetes mellitus, type II), controlled Foot drop, right GERD (gastroesophageal reflux disease) Gout History of heart attack Hx of fracture of pelvis Hyperlipidemia Hypertension Monoclonal gammopathy of unknown significance Neuropathy SANDOR (obstructive sleep apnea) nasal CPAP Pneumonia Surgical History History of cataract surgery History of coronary artery stent placement (1999) PCI L circumflex History of coronary artery stent placement (2000) PCI of LAD History of dental surgery History of right hip replacement (2016) History of tonsillectomy Hx of CABG (2011) triple vessel, 2012 S/P AV gerald ablation (04/12/17) S/P ORIF (open reduction internal fixation) fracture (2018) R femur Status cardiac pacemaker (04/12/17) biventricular pacemaker Family History Brother Coronary heart disease Brother Colorectal cancer Other Family history non-contributory Social History Smoking Status: Former smoker Years Smoked: 30; Second Hand Exposure: No; Hx Alcohol Use: No Hx Substance Use: No Preferred Language: Ethiopian Communication Ability: Effective Ham Facer Required: No Beliefs That Will Affect Care: None marital status: marital status details: 2 daughters Current Living Situation: Spouse Current Living Situation Comment: Lives with current occupational status: 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 Feels Safe at Home: Yes Assistive Devices: Glasses and Walker Review of Systems Review of Systems: All systems reviewed & are unremarkable except as noted in HPI & below Physical Exam Constitutional: WD/WN, vitals as above Eyes: EOM intact bilaterally; no conjunctival abnormality ENMT: external ear and nose normal, oropharynx normal Neck: trachea midline, no thyromegaly normal visual inspection Respiratory: normal respiratory effort, lungs clear to auscultation no respiratory distress Cardiovascular: RRR, no murmur, no edema Gastrointestinal (Abdomen): Inspection/Auscultation: abdomen normal to inspection; abdomen not distended Musculoskeletal: no cyanosis or clubbing, extremities motor strength 5/5 Skin: no rashes, warm and dry Neurologic: moves all extremities and awake Psychiatric: Orientation: alert, oriented to person and cooperative Results & Data Results & Data ([facility]) Vital Signs (Past 12 Hours) Vital Signs Temp Pulse Pulse Resp BP BP Pulse Ox 09/28/20 18:30 70 20 130/64 98 09/28/20 18:00 70 15 132/67 96 09/28/20 17:30 70 21 128/68 94 09/28/20 16:31 70 20 147/77 H 95 09/28/20 15:38 37.2 C 68 68 20 129/53 L 129/53 L 95 Code Status & VTE Plan VTE Prophylaxis Plan VTE Prophylaxis will be ordered: Yes PG Care Time/CCT Total # of Minutes Spent Total Time Spent with Patient: Total time spent is greater than 50% in coordination of care (as documented) at patient's floor/unit and/or counseling patient: Coding Level of Care Code 34210 Initial Inpt Care Lvl 3 Diagnoses 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 M97.8XXA; Z96.649 CAD (coronary artery disease) I25.10 Chronic diastolic (congestive) heart failure I50.32 Afib I48.91 Atrial fibrillation type: unspecified COPD (chronic obstructive pulmonary disease) J44.9 COPD type: unspecified COPD CKD (chronic kidney disease), stage III N18.30 Hypertension I10 Hypertension type: essential hypertension Depression F32.9 DVT prophylaxis Z29.9 DM II (diabetes mellitus, type II), controlled E11.9 Diabetes mellitus correction insulin use: without director long term care use Diabetes mellitus complication status: without complication (1) Afib Atrial fibrillation type: unspecified Qualified Code(s): I48.91 - Unspecified atrial fibrillation (2) COPD (chronic obstructive pulmonary disease) COPD type: unspecified COPD Qualified Code(s): J44.9 - Chronic obstructive pulmonary disease, unspecified (3) Hypertension Hypertension type: essential hypertension Qualified Code(s): I10 - Essential (primary) hypertension (4) DM II (diabetes mellitus, type II), controlled Diabetes mellitus correction insulin use: without director long term care use Diabetes mellitus complication status: without complication Qualified Code(s): E11.9 - Type 2 diabetes mellitus without complications
[2020-09-28] MEDS ORDERED: ALBUT/IPRATROP 3MG/0.5MG NEB 3 ML VIAL INH PRN (20:13)
[2020-09-28] MEDS ORDERED: MoRPHine SULFATE 2 MG/ML CARP IV PRN (20:13)
[2020-09-28] MEDS ORDERED: ONDANSETRON INJ 2 MG/ML 2 ML VIAL IV PRN (20:13)
[2020-09-28] MEDS ORDERED: ALBUTEROL 0.083% NEBU SOLN 3 ML VIAL INH PRN (20:13)
[2020-09-28] MEDS: oxyCODONE/ACETAMINOPHEN 5mg/325mg TAB PO PRN (21:11)
[2020-09-28] MEDS: METOPROLOL TARTRATE 25 MG TAB PO SCH (21:24)
[2020-09-28] MEDS: GABAPENTIN 100 MG CAP PO SCH (21:24)
[2020-09-28] MEDS: SIMVASTATIN 10 MG TAB PO SCH (21:24)
[2020-09-28] MEDS: TRAVOPROST Z 0.004% OPH SOLN 2.5 ML BTL OPB SCH (21:25)
--- NOTE | 2020-09-29 01:08 | Emergency Department Note ---
Impression & Plan 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, Abrasion of scalp, Skin tear of forearm without complication, Fall from standing ED Provider Note NAME: JOHN ACUÑA AGE: 80 SEX: M ARRIVES VIA: Ambulance INFORMANT: Patient, ED PROVIDER(S): Tim Swanson MD CHIEF COMPLAINT: Fall, right hip pain. PLAN: Disposition: Admit MEDICAL DECISION MAKING: The patient is a pleasant 80 y/o gentleman with a pmhx of AF s/p PPM on Xarelto, CHF, COPD, HTN, HLD, CKD, SANDOR, obesity, and h/o right ZAYDA s/p ORIF 2019 for periprosthetic fracture who presents to the emergency department accompanied by his for evaluation after having a mechanical fall when he tripped on wood floor and fell onto his right hip. He also hit his the back of his head where he suffered as cut and right forearm skin tear. They deny LOC. They denies any recent fever, cough, congestion, GI or symptoms since his last admission. On arrival the patient is uncomfortable but in NAD, AFVSS. Scalp was irrigated and demonstrate punctate superficial abrasion/skin tear that does not require repair. Right proximal dorsal forearm has approximate 5 cm skin tear/avulsion. He has FROM of the elbow without difficulty. Right hip ROM limited 2/2 pain. No gross deformity. Compartments are soft. Distal PMS intact. EKG is V-paced without overt acute ischemia. CXR with mild vascular congestion. Plain films show nondisplaced fracture through the greater trochanter of the right femur and further characterized on CT showing "nondisplaced periprosthetic fracture of the right proximal femur, predominantly involving the greater trochanter and intertrochanteric region." Hemorrhage surrounding the fracture and right iliacus intramuscular hemorrhage also noted. CT head negative for acute process. WBC and platelets wnl. H/H similar to prior range of values. Chemistry without acidosis. Cr at baseline. Electrolytes and LFTs without significant abnormality. Covid-19 PCR negative. Given periprostehtic hip fx, while unlikely to need intervention, patient is unable to walk 2/2 pain and so the patient and his are in agreement with plan for admission for pain control, specialty consult, and placement. Case was discussed with Dr. Dolan, [facility] hospitalist, who will evaluate the patient for admission. Case d/w Dr. Parsons [place] orthopedic surgery on-call and they will evaluate the patient in the morning. Triage Nursing notes reviewed and agree them. Prior medical records reviewed Vital Signs: reviewed and remarkable for no significant abnormalities Differential diagnosis: Fracture, dislocation, contusion, intra-abdominal, pneumothorax, intrathoracic, intracranial, neurologic, compartment syndrome, rhabdomyolysis, as well as other pathologies. ER treatment provided: See below. Diagnostics interpreted by me: ECG: V-paced, 70 bpm, no ectopy, no overt acute ischemia. Cardiac Monitoring: An order for continuous cardiac monitoring was placed and demonstrated V-paced, 70 bpm, no ectopy. Laboratory studies: See below Imaging studies: See below Consultation(s): Case was discussed with Dr. Dolan, [facility] hospitalist, who will evaluate the patient for admission. K[facility]ST[facility] orthopedic surgery on-call. HPI: The patient is a pleasant 80 y/o gentleman with a pmhx of AF s/p PPM on Xarelto, CHF, COPD, HTN, HLD, CKD, SANDOR, obesity, and h/o right ZAYDA s/p ORIF 2019 for periprosthetic fracture who presents to the emergency department accompanied by his for evaluation after having a mechanical fall when he tripped on wood floor and fell onto his right hip. He also hit his the back of his head where he suffered as cut and right forearm skin tear. They deny LOC. They denies any recent fever, cough, congestion, GI or symptoms since his last admission. ROS: See above HPI for pertinent positives & negatives. A total of 10 systems reviewed and were otherwise negative. PAST MEDICAL HISTORY:See Below PAST SURGICAL HISTORY:See Below FAMILY HISTORY:See Below SOCIAL HISTORY:See Below HOME MEDICATIONS:See Below ALLERGIES:See Below VITALS:See Below PHYSICAL EXAMINATION: GENERAL: Awake, alert, uncomfortable-appearing, in no distress, BMI 37.9. HENT: Normocephalic. Posterior scalp with punctate superficial abrasion/skin tear that does not require repair. Oropharynx unremarkable. EYES: Normal conjunctiva. Sclera non-icteric. NECK: Supple. No nuchal rigidity. FROM. No JVD. RESPIRATORY: Clear to auscultation. CARDIAC: Regular rate, normal rhythm. Extremities warm and well perfused. Pulses equal. ABDOMEN: Soft, non-distended. No tenderness to palpation. No rebound or guarding. No masses. RECTAL: Deferred. MUSCULOSKELETAL: Chest examination reveals no tenderness. The back is symmetrical on inspection without obvious abnormality. There is no CVA tenderness to palpation. Right proximal dorsal forearm has approximate 5 cm skin tear/avulsion. FROM of the elbow without difficulty. Right hip ROM limited 2/2 pain. No gross deformity. Compartments are soft. Distal PMS intact. LOWER EXTREMITIES: Calves are equal size bilaterally and non-tender. 1+ BLE edema. No discoloration. NEURO: Normal sensorium. No sensory or motor deficits noted. SKIN: No rash or jaundice noted. Tim Swanson MD Past Med/Surg History Medical History Acquired deviated nasal septum Afib Clinton's palsy CAD (coronary artery disease) Chronic acquired lymphedema Chronic diastolic (congestive) heart failure Chronic hypoxemic respiratory failure Chronic renal insufficiency CKD (chronic kidney disease), stage III Complex sleep apnea syndrome COPD (chronic obstructive pulmonary disease) Cor pulmonale Coronary artery disease Depression DM II (diabetes mellitus, type II), controlled Foot drop, right GERD (gastroesophageal reflux disease) Gout History of heart attack Hx of fracture of pelvis Hyperlipidemia Hypertension Monoclonal gammopathy of unknown significance Neuropathy SANDOR (obstructive sleep apnea) nasal CPAP Pneumonia Surgical History History of cataract surgery History of coronary artery stent placement (1999) PCI L circumflex History of coronary artery stent placement (2000) PCI of LAD History of dental surgery History of right hip replacement (2016) History of tonsillectomy Hx of CABG (2011) triple vessel, 2012 S/P AV gerald ablation (04/12/17) S/P ORIF (open reduction internal fixation) fracture (2018) R femur Status cardiac pacemaker (04/12/17) biventricular pacemaker Family History Brother Coronary heart disease Brother Colorectal cancer Other Family history non-contributory Social History Smoking Status: Former smoker Years Smoked: 30; Second Hand Exposure: No; Hx Alcohol Use: No Hx Substance Use: No Preferred Language: Wolof Communication Ability: Effective Insurance Inspector Required: No Beliefs That Will Affect Care: None marital status: marital status details: 2 daughters Current Living Situation: Spouse Current Living Situation Comment: Lives with /home nursing current occupational status: 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 Feels Safe at Home: Yes Assistive Devices: Glasses, Hearing Aid - Bilateral and Walker Allergies Allergies Allergy/AdvReac Type Severity Reaction Status Date / Time No Known Drug Allergies Allergy Unknown Verified 09/28/20 17:54 Home Meds Home Medications Medication Instructions Recorded Confirmed aspirin 81 mg tablet,delayed 81 mg PO QAM #0 11/04/16 09/28/20 release ipratropium 0.5 mg-albuterol 3 mg 3 ml INHALATION Q4H PRN #0 inh 11/04/16 09/28/20 (2.5 mg base)/3 mL nebulization soln albuterol sulfate 2.5 mg INHALATION BID #0 dose 01/16/17 09/28/20 ferrous sulfate 325 mg (65 mg 325 mg PO QAM #0 03/21/17 09/28/20 iron) tablet vitamin B complex 1 tab PO QAM 10/18/18 09/28/20 travoprost 0.004 % eye drops 1 drp OPB HS 09/20/19 09/28/20 omega [id number] oil 1,000 mg 1 cap PO QAM 11/26/19 09/28/20 (120 mg-180 mg) capsule (Fish Oil) simvastatin 10 mg tablet 10 mg PO HS 11/26/19 09/28/20 furosemide 40 mg tablet 80 mg PO BID tab 01/13/20 09/28/20 ascorbic acid (vitamin C) 1,000 mg 1 g PO QAM 08/21/20 09/28/20 tablet (Vitamin C) gabapentin 100 mg capsule 100 - 300 mg PO HS 08/21/20 09/28/20 metoprolol tartrate 25 mg tablet 12.5 - 25 mg PO DIRECTED 08/21/20 09/28/20 zinc 50 mg tablet 50 mg PO QAM 08/21/20 09/28/20 pantoprazole 40 mg tablet,delayed 40 mg PO DAILYBB 08/28/20 09/28/20 release (Protonix) spironolactone 25 mg tablet 12.5 - 25 mg PO BID 08/28/20 09/28/20 rivaroxaban 15 mg tablet (Xarelto) 15 mg PO HS tab 09/17/20 09/28/20 acetaminophen 325 mg tablet 650 mg PO QID PRN 09/28/20 09/28/20 (Tylenol) escitalopram oxalate 5 mg tablet 5 mg PO QDD 09/28/20 09/28/20 (Lexapro) Previous Rx's Medication Instructions Recorded cholecalciferol (vitamin D3) 25 2,000 unit PO QAM #60 tab 02/19/18 mcg (1,000 unit) tablet (Vitamin D3) fluticasone 500 mcg-salmeterol 50 1 inh INH BID #60 ea 01/10/20 mcg/dose blistr powdr for inhalation (Advair Diskus) nitroglycerin 0.4 mg sublingual 0.4 mg SUBLINGUAL PRN PRN #15 tab 06/23/20 tablet (Nitrostat) allopurinol 300 mg tablet 300 mg PO QAM #30 tab 06/30/20 fluticasone propionate 50 2 spray INTRANASAL QAM #18.2 ml 06/30/20 mcg/actuation nasal spray,suspension (Flonase Allergy Relief) azelastine 205.5 mcg (0.15 %) 1 spray INTNAS BID #30 ml 09/10/20 nasal spray Results & Data (ED) Vital Signs Vital Signs - 24 hr 09/28/20 15:38 09/28/20 16:31 09/28/20 17:30 Temperature 37.2 C Temperature Source Temporal Artery Scan Pulse Rate 68 70 70 Pulse Rate [Right Finger] 68 Pulse Rate from SpO2 Sensor 70 Respiratory Rate 20 20 21 Respiratory Effort / Characteristics Non-Labored Spontaneous Respiratory Depth Normal Respiratory Pattern Regular Blood Pressure 129/53 L 147/77 H 128/68 Blood Pressure [Right Arm] 129/53 L Blood Pressure Mean 78 100 88 Blood Pressure Mean [Right Arm] 78 Pulse Oximetry 95 95 94 Oxygen Delivery Method Room Air Sepsis Recent Fever Within 48 Hours No Sepsis New/Unexplained Change in Mental Status No Sepsis Action Taken by Nursing No Action Required 09/28/20 18:00 09/28/20 18:30 09/28/20 19:00 Temperature Temperature Source Pulse Rate 70 70 70 Pulse Rate [Right Finger] Pulse Rate from SpO2 Sensor 70 69 70 Respiratory Rate 15 20 18 Respiratory Effort / Characteristics Respiratory Depth Respiratory Pattern Blood Pressure 132/67 130/64 127/68 Blood Pressure [Right Arm] Blood Pressure Mean 88 86 87 Blood Pressure Mean [Right Arm] Pulse Oximetry 96 98 94 Oxygen Delivery Method Sepsis Recent Fever Within 48 Hours Sepsis New/Unexplained Change in Mental Status Sepsis Action Taken by Nursing Laboratory Data Attestation: I reviewed the patient's lab results. Result diagrams: 09/29/20 14:56 09/29/20 14:56 Lab Results 09/28/20 09/28/20 09/28/20 Range/Units 16:52 16:52 17:21 WBC 7.15 (4.8-10.8) K/uL RBC 3.03 L (4.7-6.1) M/uL Hgb 9.6 L (14.0-18.0) g/dL Hct 29.6 L (42-52) % MCV 97.7 (80-100) fL MCH 31.7 (25-34) pg MCHC 32.4 (32-36) g/dL RDW Std Deviation 54.5 H (36.4-46.3) fL RDW Coeff of Inez 15.4 H (11.5-14.5) % Plt Count 252 (130-400) K/uL MPV 10.1 (7.4-10.4) fL Immature Gran % (Auto) 0.1 % Neut % (Auto) 83.0 % Lymph % (Auto) 7.8 % Mora % (Auto) 7.4 % Eos % (Auto) 1.7 % Baso % (Auto) 0.0 % Neut # (Auto) 5.93 (1.4-6.5) K/uL Lymph # (Auto) 0.56 L (1.2-3.4) K/uL Mora # (Auto) 0.53 (0.11-0.59) K/uL Eos # (Auto) 0.12 (0-0.5) K/uL Baso # (Auto) 0.00 (0-0.2) K/uL Immature Gran # (Auto) 0.01 (0.00-0.02) K/uL PT (9.0-12.0) Seconds INR (0.9-1.1) APTT (21.0-31.0) Seconds PTT Ratio Sodium 130 L (136-145) mmol/L Potassium 4.4 (3.5-5.1) mmol/L Chloride 94 L (98-107) mmol/L Carbon Dioxide 27 (21-32) mmol/L Anion Gap 9.0 (3-11) BUN 32 H (7-18) mg/dl Creatinine 1.53 H (0.6-1.4) mg/dl Est Cr Clr Drug Dosing 44.5 ml/min Est GFR ( Amer) 48.4 ml/min Est GFR (Non-Af Amer) 41.7 ml/min BUN/Creatinine Ratio 20.9 H (10-20) Glucose 108 H (70-99) mg/dl Calcium 9.9 (8.5-10.1) mg/dl Total Bilirubin 0.5 (0.2-1) mg/dl AST 31 (15-37) U/L ALT 35 (12-78) U/L Alkaline Phosphatase 89 (45-117) U/L Total Protein 9.9 H (6.4-8.2) gm/dl Albumin 2.4 L (3.4-5.0) gm/dl Globulin 7.5 H (2.5-4.0) gm/dl Albumin/Globulin Ratio 0.3 L (0.9-2) COVID-19 Eval Order Covid19 at [facility] SARS-CoV-2 (PCR) (Negative) 09/28/20 09/28/20 Range/Units 17:21 17:43 WBC (4.8-10.8) K/uL RBC (4.7-6.1) M/uL Hgb (14.0-18.0) g/dL Hct (42-52) % MCV (80-100) fL MCH (25-34) pg MCHC (32-36) g/dL RDW Std Deviation (36.4-46.3) fL RDW Coeff of Inez (11.5-14.5) % Plt Count (130-400) K/uL MPV (7.4-10.4) fL Immature Gran % (Auto) % Neut % (Auto) % Lymph % (Auto) % Mora % (Auto) % Eos % (Auto) % Baso % (Auto) % Neut # (Auto) (1.4-6.5) K/uL Lymph # (Auto) (1.2-3.4) K/uL Mora # (Auto) (0.11-0.59) K/uL Eos # (Auto) (0-0.5) K/uL Baso # (Auto) (0-0.2) K/uL Immature Gran # (Auto) (0.00-0.02) K/uL PT 13.1 H (9.0-12.0) Seconds INR 1.3 H (0.9-1.1) APTT 38.8 H (21.0-31.0) Seconds PTT Ratio 1.5 Sodium (136-145) mmol/L Potassium (3.5-5.1) mmol/L Chloride (98-107) mmol/L Carbon Dioxide (21-32) mmol/L Anion Gap (3-11) BUN (7-18) mg/dl Creatinine (0.6-1.4) mg/dl Est Cr Clr Drug Dosing ml/min Est GFR ( Amer) ml/min Est GFR (Non-Af Amer) ml/min BUN/Creatinine Ratio (10-20) Glucose (70-99) mg/dl Calcium (8.5-10.1) mg/dl Total Bilirubin (0.2-1) mg/dl AST (15-37) U/L ALT (12-78) U/L Alkaline Phosphatase (45-117) U/L Total Protein (6.4-8.2) gm/dl Albumin (3.4-5.0) gm/dl Globulin (2.5-4.0) gm/dl Albumin/Globulin Ratio (0.9-2) COVID-19 Eval Order SARS-CoV-2 (PCR) NEGATIVE (Negative) Administered Medications Albuterol (Albuterol 0.083% Nebu Soln 3 Ml Vial) 2.5 mg NEB BID JAQUELINE Stop: 10/29/20 20:59 Last Admin: 09/29/20 19:29 Dose: 2.5 mg Documented by: [id number] Allopurinol (Allopurinol 300 Mg Tab) 300 mg PO QAM JAQUELINE Stop: 10/29/20 08:59 Last Admin: 09/29/20 12:03 Dose: 300 mg Documented by: [id number] Escitalopram Oxalate (Escitalopram Oxalate 10 Mg Tab) 5 mg PO QDD JAQUELINE Stop: 10/29/20 16:29 Last Admin: 09/29/20 16:31 Dose: 5 mg Documented by: [id number] Fluticasone Propionate (Fluticasone Propionate Na Spr 16 Gm Btl) 2 sprays HEATHER QAM [facility] Stop: 10/29/20 08:59 Last Admin: 09/29/20 08:41 Dose: Not Given Documented by: [id number] Fluticasone/Vilanterol (Fluticasone/Vilanterol 100/25mcg 14 Puffs/Inhaler) 1 puffs INH DAILY JAQUELINE Stop: 10/29/20 08:59 Last Admin: 09/29/20 08:43 Dose: 1 puffs Documented by: [id number] Gabapentin (Gabapentin 100 Mg Cap) 200 mg PO HS [facility] Stop: 10/28/20 20:59 Last Admin: 09/29/20 20:08 Dose: 200 mg Documented by: [id number] Admin: 09/28/20 21:24 Dose: 200 mg Documented by: [id number] Metoprolol Tartrate (Metoprolol Tartrate 25 Mg Tab) 12.5 mg PO BID JAQUELINE Stop: 10/28/20 20:59 Last Admin: 09/29/20 20:08 Dose: 12.5 mg Documented by: [id number] Admin: 09/29/20 08:42 Dose: 12.5 mg Documented by: [id number] Admin: 09/28/20 21:24 Dose: 12.5 mg Documented by: [id number] Oxycodone/Acetaminophen (Oxycodone/Acetaminophen 5mg/325mg Tab) 1 tab PO Q4H PRN PRN Reason: Moderate Pain Stop: 10/12/20 20:12 Last Admin: 09/29/20 14:45 Dose: 1 tab Documented by: [id number] Admin: 09/28/20 21:11 Dose: 1 tab Documented by: [id number] Pantoprazole Sodium (Pantoprazole 40 Mg Tab) 40 mg PO DAILYBB [facility] Stop: 10/29/20 06:29 Last Admin: 09/29/20 02:58 Dose: Not Given Documented by: [id number] Simvastatin (Simvastatin 10 Mg Tab) 10 mg PO HS [facility] Stop: 10/28/20 20:59 Last Admin: 09/29/20 20:08 Dose: 10 mg Documented by: [id number] Admin: 09/28/20 21:24 Dose: 10 mg Documented by: [id number] Travoprost (Travoprost Z 0.004% Oph Soln 2.5 Ml Btl) 1 drops OPB HS JAQUELINE Stop: 10/28/20 20:59 Last Admin: 09/29/20 20:10 Dose: 1 drops Documented by: [id number] Admin: 09/28/20 21:25 Dose: 1 drops Documented by: [id number] Discontinued Medications Aspirin (Aspirin 81 Mg Ectab) 81 mg PO ONE ONE Stop: 09/29/20 13:26 Last Admin: 09/29/20 14:11 Dose: 81 mg Documented by: [id number] Diphtheria/Pertussis/Tetanus Vacc (Diphtheria/Tetanus/Pertussis 0.5 Ml Syr/Vial) 0.5 ml IM .ONCE ONE Stop: 09/28/20 16:22 Last Admin: 09/28/20 17:16 Dose: 0.5 ml Documented by: [id number] Acetaminophen (Ofirmev) 1,000 mg in 100 mls @ 400 mls/hr IV NOW STA Stop: 09/28/20 16:33 Last Infusion: 09/28/20 17:31 Dose: 0 mls/hr Documented by: [id number] Admin: 09/28/20 17:16 Dose: 400 mls/hr Documented by: [id number] Morphine Sulfate (Morphine Sulfate 2 Mg/Ml Carp) 2 mg IV NOW STA Stop: 09/28/20 16:20 Last Admin: 09/28/20 17:16 Dose: 2 mg Documented by: [id number] Imaging Data Radiologist's Impression: Head CT 09/28/20 16:[address] DOSE: HISTORY: Head laceration. pain fall, xarelto TECHNIQUE: Multiaxial CT images of the head were performed without the use of intravenous contrast. Automated exposure control was utilized for this study. A dose lowering technique was utilized adhering to the principles of ALARA. Comparison: None. Findings: The paranasal sinuses and mastoid air cells are clear. The calvarium and skull base are intact. There is no mass, hematoma, midline shift, acute infarct. White matter hypodensity is nonspecific but suggestive of microvascular ischemic change. The ventricles and sulci demonstrate mild age-related involuti onal changes. Motion artifact. Mild right posterior scalp swelling. Impression: Motion artifact. No definite acute intracranial abnormality. ACT 112: Negative or not required by law. Electronically signed by: Chepe Vaughn M.D. 09/28/2020 5:17 PM Femur X-Ray 09/28/20 16:19 SINGLE VIEW PELVIS; 3 VIEWS RIGHT FEMUR CLINICAL HISTORY: Fall. FINDINGS: An AP supine view of the pelvis with AP, frog-leg, and crosstable lateral views of the right femur are compared to studies dated 02/14/2018. The skeletal structures are osteopenic. There is no radiographic evidence of acute fracture involving the left hip or bony pelvis. There is an acute nondisplaced fracture through the superior aspect of the greater trochanter of the right femur. No additional findings are concerning for right femoral fracture. Moderate degenerative joint space narrowing is seen in the left hip. A bipolar right hip arthroplasty is in near-anatomic alignment. Extensive postoperative change is seen involving the right acetabulum with cortical lag screws and buttress plates in place. There is chronic posttraumatic deformity of the distal femoral shaft with a buttress plate in place along the lateral cortex. Numerous cortical screws transfix the plate. The orthopedic hardware appears intact. The right knee joint is grossly maintained. The overlying soft tissues are within normal limits. Advanced atherosclerotic calcification is seen in the femoral and popliteal arteries. Lumbosacral spondylosis is partially visualized. IMPRESSION: 1. There is no radiographic evidence of acute fracture involving the left hip or bony pelvis. 2. There is a nondisplaced fracture through the greater trochanter of the right femur. 3. No additional findings are concerning for acute right femoral fracture. 4. Additional chronic and postoperative findings as above. Electronically signed by: Laci Steele M.D. 09/28/2020 4:49 PM Chest X-Ray 09/28/20 16:20 XR chest 1V portable HISTORY: pain fall COMPARISON: Chest 09/15/2020. FINDINGS: No pneumothorax. No pleural effusions. The heart is mildly enlarged. There are poststernotomy changes. There is mild central pulmonary vascular congestion without overt edema. A few bibasilar linear densities consistent with subsegmental atelectasis. This left-sided pacemaker. IMPRESSION: Mild central pulmonary vascular congestion without overt edema. ACT 112: Negative or not required by law. Electronically signed by: Chepe Vaughn M.D. 09/28/2020 5:29 PM Pelvis X-Ray 09/28/20 16:37 SINGLE VIEW PELVIS; 3 VIEWS RIGHT FEMUR CLINICAL HISTORY: Fall. FINDINGS: An AP supine view of the pelvis with AP, frog-leg, and crosstable lateral views of the right femur are compared to studies dated 02/14/2018. The skeletal structures are osteopenic. There is no radiographic evidence of acute fracture involving the left hip or bony pelvis. There is an acute nondisplaced fracture through the superior aspect of the greater trochanter of the right femur. No additional findings are concerning for right femoral fracture. Moderate degenerative joint space narrowing is seen in the left hip. A bipolar right hip arthroplasty is in near-anatomic alignment. Extensive postoperative change is seen involving the right acetabulum with cortical lag screws and buttress plates in place. There is chronic posttraumatic deformity of the distal femoral shaft with a buttress plate in place along the lateral cortex. Numerous cortical screws transfix the plate. The orthopedic hardware appears intact. The right knee joint is grossly maintained. The overlying soft tissues are within normal limits. Advanced atherosclerotic calcification is seen in the femoral and popliteal arteries. Lumbosacral spondylosis is partially visualized. IMPRESSION: 1. There is no radiographic evidence of acute fracture involving the left hip or bony pelvis. 2. There is a nondisplaced fracture through the greater trochanter of the right femur. 3. No additional findings are concerning for acute right femoral fracture. 4. Additional chronic and postoperative findings as above. Electronically signed by: Laci Steele M.D. 09/28/2020 4:49 PM Abdomen/Pelvis CT 09/28/20 16:56 CT SCAN OF THE ABDOMEN AND PELVIS WITHOUT IV CONTRAST CLINICAL HISTORY: Fall. Right hip pain. COMPARISON STUDY: Abdominal CT pelvic CT dated 11/04/2016. Pelvic radiographs dated 09/28/2020. TECHNIQUE: CT scan of the abdomen and pelvis is performed from the lung bases to the proximal femora. Images are reviewed in the axial, sagittal, and coronal planes. IV contrast was not administered for this examination. Note that the examination is suboptimal without IV contrast. Examination is also degraded by motion artifact. A dose lowering technique was utilized adhering to the principles of ALARA. CT DOSE: 2478.39 mGy.cm FINDINGS: Lung bases: The patient is status post midline sternotomy. The heart is enlarged and without pericardial effusion. There is lipomatous hypertrophy of the interatrial septum. The coronary arteries are densely calcified. The lung bases are clear noting bibasilar scarring/atelectasis. A tiny hiatal hernia is noted. Liver: The unenhanced liver is cirrhotic in morphology and heterogeneous in attenuation. There is nodularity of the hepatic surface contour. There is no intrahepatic biliary ductal dilatation. Gallbladder: The gallbladder is filled with calcified stones. There is no CT evidence of acute cholecystitis. Spleen: Normal in size and attenuation. There are calcified splenic granulomas. Pancreas: The unenhanced pancreas is moderately atrophic and grossly unremarkable. Adrenal glands: Unremarkable. Kidneys: The unenhanced kidneys are atrophic and without hydronephrosis. There is a 4 mm nonobstructing right renal calculus. No left renal calculi are Identified. There is no evidence of contour deforming renal mass lesion. Abdominal vasculature: The abdominal aorta is normal in course and caliber n oting advanced atherosclerotic calcification. Bowel: There is moderate colonic diverticulosis without CT evidence of acute diverticulitis. No bowel obstruction is seen. The appendix is well-visualized and normal. Peritoneum: There is no intraperitoneal free air or abdominal ascites. Lymphadenopathy: None. Pelvic viscera: Evaluation of the pelvis is degraded by streak artifact from a right hip arthroplasty. The prostate gland is diminutive and heterogeneous. The bladder is mildly distended but otherwise normal in appearance. There is a fat- containing right inguinal hernia. There is intramuscular hemorrhage within the right iliacus. Skeletal structures: The skeletal structures are osteopenic. There is a right hip arthroplasty in place with previous buttress plate fixation of the acetabulum and right ischium. There is a periprosthetic fracture of the right proximal femur, centered around the greater trochanter and intertrochanteric region. There is mild surrounding hemorrhage. No additional acute fracture is identified. Chronic posttraumatic deformity is noted in the right ischium. There is moderate to advanced the sacral spondylosis and mild scoliosis. No lytic or blastic lesions are seen. IMPRESSION: 1. There is a nondisplaced periprosthetic fracture of the right proximal femur, predominantly involving the greater trochanter and intertrochanteric region. 2. There is hemorrhage surrounding the fracture, as well as intramuscular hemorrhage within the right iliacus. 3. No additional acute fracture is identified. 4. There is no evidence of solid organ injury in the abdomen or pelvis on this unenhanced examination. 5. Cirrhotic liver morphology. 6. Cholelithiasis. 7. Right-sided nephrolithiasis. 8. Additional findings as above. ACT 112: Negative or not required by law. Electronically signed by: Laci Steele M.D. 09/28/2020 5:50 PM Discharge Plan Visit Data Chief Complaint: Fall Stated Complaint: Fall Head Lac/R leg Pain ED Provider: Tim Swanson Discharge Problem: 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, Abrasion of scalp, Skin tear of forearm without complication, Fall from standing Patient Disposition: Admitted As Inpatient Discharge Instructions Interventions: ED Discharge Assessment Last Done: 09/28/20 20:10 Discharge Problem: 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 Qualifiers: Encounter type: initial encounter Laterality: right Qualified Code(s): M97.01XA - Periprosthetic fracture around internal prosthetic right hip joint, initial encounter Abrasion of scalp Qualifiers: Encounter type: initial encounter Qualified Code(s): S00.01XA - Abrasion of scalp, initial encounter Skin tear of forearm without complication Qualifiers: Encounter type: initial encounter Laterality: right Qualified Code(s): S51.811A - Laceration without foreign body of right forearm, initial encounter
[2020-09-29 02:25] LABS: Hematocrit (blood only) 27.1 % (42-52); Hemoglobin 9.1 g/dL (14.0-18.0); Mean Corpuscular Hemoglobin 32.7 pg (25-34); Mean Corpuscular Hgb Conc 33.6 g/dL (32-36); Mean Corpuscular Volume 97.5 fL (80-100); Mean Platelet Volume 9.4 fL (7.4-10.4); Nucleated RBC # (auto) 0.02 K/uL (0-0); Nucleated RBC % (auto) 0.2 %; Platelet Count 232 K/uL (130-400); RDW Coefficient of Variation 15.3 % (11.5-14.5); RDW Standard Deviation 54.4 fL (36.4-46.3); Red Blood Count 2.78 M/uL (4.7-6.1); White Blood Count 8.53 K/uL (4.8-10.8)
[2020-09-29 02:46] LABS: BUN Creatinine Ratio 22.2 (10-20); Calcium 9.3 mg/dl (8.5-10.1); Creatinine Clr Calc Pharmacy 43.7 ml/min; Est GFR (Non-African American) 41.4 ml/min; Magnesium 2.2 mg/dl (1.8-2.4); Potassium 4.4 mmol/L (3.5-5.1)
[2020-09-29] MEDS: PANTOprazole 40 MG TAB PO SCH (02:58)
--- NOTE | 2020-09-29 08:00 | Hospitalist Progress Note ---
Date of Service September 29, 2020 Assessment & Plan (1) 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: Plan: CT on admission showed nondisplaced periprosthetic fracture of the right proximal femur along with a hemorrhage around the fracture. Orthopedics consulted -- formal consult pending but did discuss with Dr. Gan (who did initial surgery) and felt non-surgical and weight bearing as tolerated with repeat imaging in 2 weeks to ensure healing Given diet for today Will await formal eval, but suspect PT/OT wtbearing as tolerated once completed If surgery planned, will make NPO after midnight Xarelto on hold for possible surgery but ASA 81mg resumed by cardiology (on consult, stable for surgery but would rec telemetry after if surgery given cardiac hx) Repeat CBC this afternoon with hgb 8.8 from 9.1 -- slowed, but will continue to monitor given hemorrhage Vitals remain stable Labs in AM (2) CAD (coronary artery disease): Plan: Stents in 2009 and CABG in 2011. 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 He has a BiV pacemaker. Hold Xarelto for now (will be 2nd missed dose) Continue beta-gonsalo as above (6) Hypertension: Plan: BP presently 150/71 Continue beta-gonsalo Hold diuretics Continue to monitor (7) COPD (chronic obstructive pulmonary disease): Plan: No shortness of breath or indication of exacerbation. Continue Advair BID -- he also utilizes albuterol nebs BID and this was changed to scheduled DuoNebs PRN Also with SANDOR -- CPAP at home 9cm H20 -- did not bring his and will order for tonight (8) DM II (diabetes mellitus, type II), controlled: Plan: A1cs all below 6.5%, but high of 6.4%. Monitored today, blood sugars acceptable and will continue to monitor on AM labs No ISS for now (9) Depression: Plan: No indication of SI/HI on my interview. Continue SSRI (10) DVT prophylaxis: Plan: SCDs Holding heparin (and his Xarelto) for hematoma and possible need for surgery Plan: Formal ortho consult pending but suspect non-weight bearing. PT/OT evals tomorrow if no surgery planned and would like [facility] for [place]hab [place]. CM to follow Admission and Anticipated Discharge Date Admission Date: September 28, 2020 Subjective Patient evaluated this afternoon. Reported his knee gave out and fell on to right hip yesterday. Immediate pain, unable to get up and needed ambulance. Cried out in pain at that time. Pain controlled with ordered medications. Seen by cardiology this morning but not yet by orthopedics. Did speak with Dr. Gan who saw films and thought non-surgical but not radiation monitor and to be eval by Dr. Parsons later today. Had been taking lasix 80mg BID prior to admission but discussed will hold for now along with his Xarelto. reports he has been doing very well with his weights. Per , she would like to be updated on plan and has appt with cancer center tomorrow and contact by phone. Prior good experience at [facility] and where him and resident next door and would like rehab through that facility if possible. Wheezing on exam -- patient denies sob but notes he takes albuterol neb twice daily. Also utilizes CPAP setting 9cm H20 at night but did not bring as last time they were told to take it home. No fever, chills, chest pain, shortness of breath, abdominal pain, nausea, vomiting reported. PA from ortho entering room upon exit. Review of Systems Review of Systems: All systems reviewed & are unremarkable except as noted in HPI & below Physical Exam Physical Exam: WD/WN, NAD, Alert and oriented x 3, at bedside, cooperative and comfortable HEENT: head normocephalic, atraumatic, slightly dry mm, trachea midline without deviation Resp: no tachypnea, no cough, mild anterior chest expiratory wheezing, diminished in the bases, no crackles, stable on room air CV: RRR, no murmur, trace edema b/l LE MSK: strength equal, R hip tender to palpation anterior thigh, greater trochanter, no hematoma appreciated, pulses palpable bilaterally GI: +BS throughout, soft, nontender, no guarding or rigidity : Curtis with clear yellow urine draining Skin: warm, dry Results & Data Results & Data ([facility]) Vital Signs (Past 12 Hours) Vital Signs Temp Pulse Pulse Resp BP BP Pulse Ox 09/29/20 07:48 36.7 C 69 18 150/71 H 93 09/28/20 22:27 36.7 C 70 16 132/75 93 09/28/20 20:56 36.6 C 66 22 146/65 H 95 09/28/20 20:00 70 13 126/74 96 Laboratory Results 09/29/20 09/29/20 09/28/20 Range/Units 02:03 02:03 17:43 WBC 8.53 (4.8-10.8) K/uL RBC 2.78 L (4.7-6.1) M/uL Hgb 9.1 L (14.0-18.0) g/dL Hct 27.1 L (42-52) % MCV 97.5 (80-100) fL MCH 32.7 (25-34) pg MCHC 33.6 (32-36) g/dL RDW Std Deviation 54.4 H (36.4-46.3) fL RDW Coeff of Inez 15.3 H (11.5-14.5) % Plt Count 232 (130-400) K/uL MPV 9.4 (7.4-10.4) fL Immature Gran % (Auto) % Neut % (Auto) % Lymph % (Auto) % Laurens % (Auto) % Eos % (Auto) % Baso % (Auto) % Neut # (Auto) (1.4-6.5) K/uL Lymph # (Auto) (1.2-3.4) K/uL Laurens # (Auto) (0.11-0.59) K/uL Eos # (Auto) (0-0.5) K/uL Baso # (Auto) (0-0.2) K/uL Immature Gran # (Auto) (0.00-0.02) K/uL Absolute Nucleated RBC 0.02 H (0-0) K/uL Nucleated RBC % (auto) 0.2 % PT 13.1 H (9.0-12.0) Seconds INR 1.3 H (0.9-1.1) APTT 38.8 H (21.0-31.0) Seconds PTT Ratio 1.5 Sodium 131 L (136-145) mmol/L Potassium 4.4 (3.5-5.1) mmol/L Chloride 96 L (98-107) mmol/L Carbon Dioxide 29 (21-32) mmol/L Anion Gap 6.0 (3-11) BUN 34 H (7-18) mg/dl Creatinine 1.54 H (0.6-1.4) mg/dl Est Cr Clr Drug Dosing 43.7 ml/min Est GFR ( Amer) 48.0 ml/min Est GFR (Non-Af Amer) 41.4 ml/min BUN/Creatinine Ratio 22.2 H (10-20) Glucose 119 H (70-99) mg/dl Calcium 9.3 (8.5-10.1) mg/dl Magnesium 2.2 (1.8-2.4) mg/dl Total Bilirubin (0.2-1) mg/dl AST (15-37) U/L ALT (12-78) U/L Alkaline Phosphatase (45-117) U/L Total Protein (6.4-8.2) gm/dl Albumin (3.4-5.0) gm/dl Globulin (2.5-4.0) gm/dl Albumin/Globulin Ratio (0.9-2) COVID-19 Eval Order SARS-CoV-2 (PCR) (Negative) 09/28/20 09/28/20 09/28/20 Range/Units 17:21 17:21 16:52 WBC (4.8-10.8) K/uL RBC (4.7-6.1) M/uL Hgb (14.0-18.0) g/dL Hct (42-52) % MCV (80-100) fL MCH (25-34) pg MCHC (32-36) g/dL RDW Std Deviation (36.4-46.3) fL RDW Coeff of Inez (11.5-14.5) % Plt Count (130-400) K/uL MPV (7.4-10.4) fL Immature Gran % (Auto) % Neut % (Auto) % Lymph % (Auto) % Laurens % (Auto) % Eos % (Auto) % Baso % (Auto) % Neut # (Auto) (1.4-6.5) K/uL Lymph # (Auto) (1.2-3.4) K/uL Laurens # (Auto) (0.11-0.59) K/uL Eos # (Auto) (0-0.5) K/uL Baso # (Auto) (0-0.2) K/uL Immature Gran # (Auto) (0.00-0.02) K/uL Absolute Nucleated RBC (0-0) K/uL Nucleated RBC % (auto) % PT (9.0-12.0) Seconds INR (0.9-1.1) APTT (21.0-31.0) Seconds PTT Ratio Sodium 130 L (136-145) mmol/L Potassium 4.4 (3.5-5.1) mmol/L Chloride 94 L (98-107) mmol/L Carbon Dioxide 27 (21-32) mmol/L Anion Gap 9.0 (3-11) BUN 32 H (7-18) mg/dl Creatinine 1.53 H (0.6-1.4) mg/dl Est Cr Clr Drug Dosing 44.5 ml/min Est GFR ( Amer) 48.4 ml/min Est GFR (Non-Af Amer) 41.7 ml/min BUN/Creatinine Ratio 20.9 H (10-20) Glucose 108 H (70-99) mg/dl Calcium 9.9 (8.5-10.1) mg/dl Magnesium (1.8-2.4) mg/dl Total Bilirubin 0.5 (0.2-1) mg/dl AST 31 (15-37) U/L ALT 35 (12-78) U/L Alkaline Phosphatase 89 (45-117) U/L Total Protein 9.9 H (6.4-8.2) gm/dl Albumin 2.4 L (3.4-5.0) gm/dl Globulin 7.5 H (2.5-4.0) gm/dl Albumin/Globulin Ratio 0.3 L (0.9-2) COVID-19 Eval Order Covid19 at [facility] SARS-CoV-2 (PCR) NEGATIVE (Negative) 09/28/20 Range/Units 16:52 WBC 7.15 (4.8-10.8) K/uL RBC 3.03 L (4.7-6.1) M/uL Hgb 9.6 L (14.0-18.0) g/dL Hct 29.6 L (42-52) % MCV 97.7 (80-100) fL MCH 31.7 (25-34) pg MCHC 32.4 (32-36) g/dL RDW Std Deviation 54.5 H (36.4-46.3) fL RDW Coeff of Inez 15.4 H (11.5-14.5) % Plt Count 252 (130-400) K/uL MPV 10.1 (7.4-10.4) fL Immature Gran % (Auto) 0.1 % Neut % (Auto) 83.0 % Lymph % (Auto) 7.8 % Laurens % (Auto) 7.4 % Eos % (Auto) 1.7 % Baso % (Auto) 0.0 % Neut # (Auto) 5.93 (1.4-6.5) K/uL Lymph # (Auto) 0.56 L (1.2-3.4) K/uL Laurens # (Auto) 0.53 (0.11-0.59) K/uL Eos # (Auto) 0.12 (0-0.5) K/uL Baso # (Auto) 0.00 (0-0.2) K/uL Immature Gran # (Auto) 0.01 (0.00-0.02) K/uL Absolute Nucleated RBC (0-0) K/uL Nucleated RBC % (auto) % PT (9.0-12.0) Seconds INR (0.9-1.1) APTT (21.0-31.0) Seconds PTT Ratio Sodium (136-145) mmol/L Potassium (3.5-5.1) mmol/L Chloride (98-107) mmol/L Carbon Dioxide (21-32) mmol/L Anion Gap (3-11) BUN (7-18) mg/dl Creatinine (0.6-1.4) mg/dl Est Cr Clr Drug Dosing ml/min Est GFR ( Amer) ml/min Est GFR (Non-Af Amer) ml/min BUN/Creatinine Ratio (10-20) Glucose (70-99) mg/dl Calcium (8.5-10.1) mg/dl Magnesium (1.8-2.4) mg/dl Total Bilirubin (0.2-1) mg/dl AST (15-37) U/L ALT (12-78) U/L Alkaline Phosphatase (45-117) U/L Total Protein (6.4-8.2) gm/dl Albumin (3.4-5.0) gm/dl Globulin (2.5-4.0) gm/dl Albumin/Globulin Ratio (0.9-2) COVID-19 Eval Order SARS-CoV-2 (PCR) (Negative) Diagnostic Findings Head CT 09/28/20 16:[address] DOSE: HISTORY: Head laceration. pain fall, xarelto TECHNIQUE: Multiaxial CT images of the head were performed without the use of intravenous contrast. Automated exposure control was utilized for this study. A dose lowering technique was utilized adhering to the principles of ALARA. Comparison: None. Findings: The paranasal sinuses and mastoid air cells are clear. The calvarium and skull base are intact. There is no mass, hematoma, midline shift, acute infarct. White matter hypodensity is nonspecific but suggestive of microvascular ischemic change. The ventricles and sulci demonstrate mild age-related i nvolutional changes. Motion artifact. Mild right posterior scalp swelling. Impression: Motion artifact. No definite acute intracranial abnormality. ACT 112: Negative or not required by law. Electronically signed by: Chepe Vaughn M.D. 09/28/2020 5:17 PM Femur X-Ray 09/28/20 16:19 SINGLE VIEW PELVIS; 3 VIEWS RIGHT FEMUR CLINICAL HISTORY: Fall. FINDINGS: An AP supine view of the pelvis with AP, frog-leg, and crosstable lateral views of the right femur are compared to studies dated 02/14/2018. The skeletal structures are osteopenic. There is no radiographic evidence of acute fracture involving the left hip or bony pelvis. There is an acute nondisplaced fracture through the superior aspect of the greater trochanter of the right femur. No additional findings are concerning for right femoral fracture. Moderate degenerative joint space narrowing is seen in the left hip. A bipolar right hip arthroplasty is in near-anatomic alignment. Extensive postoperative change is seen involving the right acetabulum with cortical lag screws and buttress plates in place. There is chronic posttraumatic deformity of the distal femoral shaft with a buttress plate in place along the lateral cortex. Numerous cortical screws transfix the plate. The orthopedic hardware appears intact. The right knee joint is grossly maintained. The overlying soft tissues are within normal limits. Advanced atherosclerotic calcification is seen in the femoral and popliteal arteries. Lumbosacral spondylosis is partially visualized. IMPRESSION: 1. There is no radiographic evidence of acute fracture involving the left hip or bony pelvis. 2. There is a nondisplaced fracture through the greater trochanter of the right femur. 3. No additional findings are concerning for acute right femoral fracture. 4. Additional chronic and postoperative findings as above. Electronically signed by: Laci Steele M.D. 09/28/2020 4:49 PM Chest X-Ray 09/28/20 16:20 XR chest 1V portable HISTORY: pain fall COMPARISON: Chest 09/15/2020. FINDINGS: No pneumothorax. No pleural effusions. The heart is mildly enlarged. There are poststernotomy changes. There is mild central pulmonary vascular congestion without overt edema. A few bibasilar linear densities consistent with subsegmental atelectasis. This left-sided pacemaker. IMPRESSION: Mild central pulmonary vascular congestion without overt edema. ACT 112: Negative or not required by law. Electronically signed by: Chepe Vaughn M.D. 09/28/2020 5:29 PM Pelvis X-Ray 09/28/20 16:37 SINGLE VIEW PELVIS; 3 VIEWS RIGHT FEMUR CLINICAL HISTORY: Fall. FINDINGS: An AP supine view of the pelvis with AP, frog-leg, and crosstable lateral views of the right femur are compared to studies dated 02/14/2018. The skeletal structures are osteopenic. There is no radiographic evidence of acute fracture involving the left hip or bony pelvis. There is an acute nondisplaced fracture through the superior aspect of the greater trochanter of the right femur. No additional findings are concerning for right femoral fracture. Moderate degenerative joint space narrowing is seen in the left hip. A bipolar right hip arthroplasty is in near-anatomic alignment. Extensive postoperative change is seen involving the right acetabulum with cortical lag screws and buttress plates in place. There is chronic posttraumatic deformity of the distal femoral shaft with a buttress plate in place along the lateral cortex. Numerous cortical screws transfix the plate. The orthopedic hardware appears intact. The right knee joint is grossly maintained. The overlying soft tissues are within normal limits. Advanced atherosclerotic calcification is seen in the femoral and popliteal arteries. Lumbosacral spondylosis is partially visualized. IMPRESSION: 1. There is no radiographic evidence of acute fracture involving the left hip or bony pelvis. 2. There is a nondisplaced fracture through the greater trochanter of the right femur. 3. No additional findings are concerning for acute right femoral fracture. 4. Additional chronic and postoperative findings as above. Electronically signed by: Laci Steele M.D. 09/28/2020 4:49 PM Abdomen/Pelvis CT 09/28/20 16:56 CT SCAN OF THE ABDOMEN AND PELVIS WITHOUT IV CONTRAST CLINICAL HISTORY: Fall. Right hip pain. COMPARISON STUDY: Abdominal CT pelvic CT dated 11/04/2016. Pelvic radiographs dated 09/28/2020. TECHNIQUE: CT scan of the abdomen and pelvis is performed from the lung bases to the proximal femora. Images are reviewed in the axial, sagittal, and coronal planes. IV contrast was not administered for this examination. Note that the examination is suboptimal without IV contrast. Examination is also degraded by motion artifact. A dose lowering technique was utilized adhering to the principles of ALARA. CT DOSE: 2478.39 mGy.cm FINDINGS: Lung bases: The patient is status post midline sternotomy. The heart is enlarged and without pericardial effusion. There is lipomatous hypertrophy of the interatrial septum. The coronary arteries are densely calcified. The lung bases are clear noting bibasilar scarring/atelectasis. A tiny hiatal hernia is noted. Liver: The unenhanced liver is cirrhotic in morphology and heterogeneous in attenuation. There is nodularity of the hepatic surface contour. There is no intrahepatic biliary ductal dilatation. Gallbladder: The gallbladder is filled with calcified stones. There is no CT evidence of acute cholecystitis. Spleen: Normal in size and attenuation. There are calcified splenic granulomas. Pancreas: The unenhanced pancreas is moderately atrophic and grossly unremarkable. Adrenal glands: Unremarkable. Kidneys: The unenhanced kidneys are atrophic and without hydronephrosis. There is a 4 mm nonobstructing right renal calculus. No left renal calculi are Identified. There is no evidence of contour deforming renal mass lesion. Abdominal vasculature: The abdominal aorta is normal in course and caliber noting advanced atherosclerotic calcification. Bowel: There is moderate colonic diverticulosis without CT evidence of acute diverticulitis. No bowel obstruction is seen. The appendix is well-visualized and normal. Peritoneum: There is no intraperitoneal free air or abdominal ascites. Lymphadenopathy: None. Pelvic viscera: Evaluation of the pelvis is degraded by streak artifact from a right hip arthroplasty. The prostate gland is diminutive and heterogeneous. The bladder is mildly distended but otherwise normal in appearance. There is a fat- containing right inguinal hernia. There is intramuscular hemorrhage within the right iliacus. Skeletal structures: The skeletal structures are osteopenic. There is a right hip arthroplasty in place with previous buttress plate fixation of the acetabulum and right ischium. There is a periprosthetic fracture of the right proximal femur, centered around the greater trochanter and intertrochanteric region. There is mild surrounding hemorrhage. No additional acute fracture is identified. Chronic posttraumatic deformity is noted in the right ischium. There is moderate to advanced the sacral spondylosis and mild scoliosis. No lytic or blastic lesions are seen. IMPRESSION: 1. There is a nondisplaced periprosthetic fracture of the right proximal femur, predominantly involving the greater trochanter and intertrochanteric region. 2. There is hemorrhage surrounding the fracture, as well as intramuscular hemorrhage within the right iliacus. 3. No additional acute fracture is identified. 4. There is no evidence of solid organ injury in the abdomen or pelvis on this unenhanced examination. 5. Cirrhotic liver morphology. 6. Cholelithiasis. 7. Right-sided nephrolithiasis. 8. Additional findings as above. ACT 112: Negative or not required by law. Electronically signed by: Laci Steele M.D. 09/28/2020 5:50 PM PG Care Time/CCT Total # of Minutes Spent Total Time Spent with Patient: Total time spent is greater than 50% in coordination of care (as documented) at patient's floor/unit and/or counseling patient: Coding Level of Care Code 63940 Subseq Hosp Care Lvl 3 Diagnoses 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 M97.8XXA; Z96.649 CAD (coronary artery disease) I25.10 Chronic diastolic (congestive) heart failure I50.32 CKD (chronic kidney disease), stage III N18.30 Afib I48.91 Atrial fibrillation type: unspecified Hypertension I10 Hypertension type: essential hypertension COPD (chronic obstructive pulmonary disease) J44.9 COPD type: unspecified COPD DM II (diabetes mellitus, type II), controlled E11.9 Diabetes mellitus complication status: without complication Diabetes mellitus pump house engineer insulin use: without pump house engineer use Depression F32.9 DVT prophylaxis Z29.9 (1) Afib Atrial fibrillation type: unspecified Qualified Code(s): I48.91 - Unspecified atrial fibrillation (2) DM II (diabetes mellitus, type II), controlled Diabetes mellitus complication status: without complication Diabetes mellitus pump house engineer insulin use: without snf use Qualified Code(s): E11.9 - Type 2 diabetes mellitus without complications (3) COPD (chronic obstructive pulmonary disease) COPD type: unspecified COPD Qualified Code(s): J44.9 - Chronic obstructive pulmonary disease, unspecified (4) Hypertension Hypertension type: essential hypertension Qualified Code(s): I10 - Essential (primary) hypertension
[2020-09-29] MEDS: FLUTICASONE PROPIONATE NA SPR 16 GM BTL NAE SCH (08:41)
[2020-09-29] MEDS: METOPROLOL TARTRATE 25 MG TAB PO SCH ×2 (08:42→20:08)
[2020-09-29] MEDS: FLUTICASONE/VILANTEROL 100/25MCG 14 PUFFS/INHALER INH SCH (08:43)
[2020-09-29] MEDS: allopurinoL 300 MG TAB PO SCH (12:03)
[2020-09-29] MEDS ORDERED: ASPIRIN 81 MG ECTAB PO ONE (13:25)
--- NOTE | 2020-09-29 14:29 | Cardiology Consultation ---
Date of Consultation September 29, 2020 Assessment & Plan (1) Preoperative cardiovascular examination: (2) 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: (3) CAD (coronary artery disease): (4) Chronic diastolic (congestive) heart failure: Patient's most recent echocardiogram was performed 11/27/2019 with findings of moderate concentric left ventricular hypertrophy, LVEF 60 to 65%. Moderate aortic valve sclerosis without stenosis was present, trace mitral regurgitation. He has been followed by multiple providers recently including [facility] primary care,Mrs. Dubon of the [facility] heart failure program, [facility], and [facility] cardiology. Per the 09/15/2020 [place] heart failure progress note furosemide dose at that time was 80 mg twice daily. Per the outpatient [facility] chart, dose as of 09/25/2020 was furosemide 80 mg daily, with 80 mg twice a day on Mondays only. I am not able to ascertain with more clarity what the patient has been doing at home. He is not able to describe in detail what happened to him prompting his leg pain. At present he appears well compensated. His aspirin was held on presentation, but I am going to administer dose today. Of note he has chronically in atrial fibrillation, and typically on Xarelto 15 mg daily with apparent most recent dose on 09/27/2020, which need to be taken into account with regards to his anesthesia plan. He is stable from a cardiac perspective to proceed with operative intervention of his right femur fracture. He does have comorbidities and we discussed this, patient is well optimized however is willing to accept the operative risks. Agree with holding his diuretics for now. As noted, Xarelto on hold. History of Present Illness Reason for Consultation: Preoperative cardiac evaluation, history of coronary heart disease, diastolic heart failure Requesting Physician: VASQUEZ Kuhn Attending Physician: Aftab King MD History of Present Illness 80-year-old male well-known to our cardiology service, primary poultry vaccinator is Dr. Jordan Parson, seen in preoperative assessment having presented after his leg gave out and he has been found to have a nondisplaced periprosthetic fracture of the right proximal femur. Surgical intervention is tentatively proposed for tomorrow. Patient denies any current cardiac symptoms. Denies chest pain or shortness of breath. History includes: 1.Atherosclerotic coronary artery disease: -Status post PCI of the left circumflex coronary artery in [address]- segment elevation myocardial infarction. -Status post PCI of the left anterior descending in 2000 for progression of symptoms. -Status post Coronary bypass grafting in March of 2011 for severe multivessel disease, NSTEMI in the setting of rapid atrial fibrillation, receiving at that time a REILLY graft to the LAD, a saphenous vein graft to the obtuse marginal, a saphenous vein graft to the PDA. 2.Severe longstanding and labile hypertension with hypertensive heart disease 3.Chronic diastolic congestive heart failure, NYHA Class III 4.Stage III chronic kidney disease. 5.Chronic obstructive lung disease 6.Severe obstructive sleep apnea and nocturnal hypoxemia, BiPAP therapy 7.Chronic atrial fibrillation status post AV gerald ablation and biventricular pacemaker implantation on April 12, 2017 [id number] 5. Renally dosed Xarelto anticoagulation 9.Atherosclerotic plaque in the descending aorta 10.Dyslipidemia. Allergies Allergy/AdvReac Type Severity Reaction Status Date / Time No Known Drug Allergies Allergy Unknown Verified 09/28/20 17:54 Home Medications Medication Instructions Recorded Confirmed Type aspirin 81 mg tablet,delayed 81 mg PO QAM #0 11/04/16 09/28/20 History release ipratropium 0.5 mg-albuterol 3 mg 3 ml INHALATION Q4H PRN #0 inh 11/04/16 09/28/20 History (2.5 mg base)/3 mL nebulization soln albuterol sulfate 2.5 mg INHALATION BID #0 dose 01/16/17 09/28/20 History ferrous sulfate 325 mg (65 mg 325 mg PO QAM #0 03/21/17 09/28/20 History iron) tablet cholecalciferol (vitamin D3) 25 2,000 unit PO QAM #60 tab 02/19/18 09/28/20 Rx mcg (1,000 unit) tablet (Vitamin D3) vitamin B complex 1 tab PO QAM 10/18/18 09/28/20 History travoprost 0.004 % eye drops 1 drp OPB HS 09/20/19 09/28/20 History omega 0-bpg-jla-fish oil 1,000 mg 1 cap PO QAM 11/26/19 09/28/20 History (120 mg-180 mg) capsule (Fish Oil) simvastatin 10 mg tablet 10 mg PO HS 11/26/19 09/28/20 History fluticasone 500 mcg-salmeterol 50 1 inh INH BID #60 ea 01/10/20 09/28/20 Rx mcg/dose blistr powdr for inhalation (Advair Diskus) furosemide 40 mg tablet 80 mg PO BID tab 01/13/20 09/28/20 History nitroglycerin 0.4 mg sublingual 0.4 mg SUBLINGUAL PRN PRN #15 tab 06/23/20 09/28/20 Rx tablet (Nitrostat) allopurinol 300 mg tablet 300 mg PO QAM #30 tab 06/30/20 09/28/20 Rx fluticasone propionate 50 2 spray INTRANASAL QAM #18.2 ml 06/30/20 09/28/20 Rx mcg/actuation nasal spray,suspension (Flonase Allergy Relief) ascorbic acid (vitamin C) 1,000 mg 1 g PO QAM 08/21/20 09/28/20 History tablet (Vitamin C) gabapentin 100 mg capsule 100 - 300 mg PO HS 08/21/20 09/28/20 History metoprolol tartrate 25 mg tablet 12.5 - 25 mg PO DIRECTED 08/21/20 09/28/20 History zinc 50 mg tablet 50 mg PO QAM 08/21/20 09/28/20 History pantoprazole 40 mg tablet,delayed 40 mg PO DAILYBB 08/28/20 09/28/20 History release (Protonix) spironolactone 25 mg tablet 12.5 - 25 mg PO BID 08/28/20 09/28/20 History azelastine 205.5 mcg (0.15 %) 1 spray INTNAS BID #30 ml 09/10/20 09/28/20 Rx nasal spray rivaroxaban 15 mg tablet (Xarelto) 15 mg PO HS tab 09/17/20 09/28/20 History acetaminophen 325 mg tablet 650 mg PO QID PRN 09/28/20 09/28/20 History (Tylenol) escitalopram oxalate 5 mg tablet 5 mg PO QDD 09/28/20 09/28/20 History (Lexapro) Patient History Medical History Acquired deviated nasal septum Afib Clinton's palsy CAD (coronary artery disease) Chronic acquired lymphedema Chronic diastolic (congestive) heart failure Chronic hypoxemic respiratory failure Chronic renal insufficiency CKD (chronic kidney disease), stage III Complex sleep apnea syndrome COPD (chronic obstructive pulmonary disease) Cor pulmonale Coronary artery disease Depression DM II (diabetes mellitus, type II), controlled Foot drop, right GERD (gastroesophageal reflux disease) Gout History of heart attack Hx of fracture of pelvis Hyperlipidemia Hypertension Monoclonal gammopathy of unknown significance Neuropathy ASNDOR (obstructive sleep apnea) nasal CPAP Pneumonia Surgical History History of cataract surgery History of coronary artery stent placement (1999) PCI L circumflex History of coronary artery stent placement (2000) PCI of LAD History of dental surgery History of right hip replacement (2016) History of tonsillectomy Hx of CABG (2011) triple vessel, 2012 S/P AV gerald ablation (04/12/17) S/P ORIF (open reduction internal fixation) fracture (2018) R femur Status cardiac pacemaker (04/12/17) biventricular pacemaker Family History Brother Coronary heart disease Brother Colorectal cancer Other Family history non-contributory Social History Smoking Status: Former smoker Years Smoked: 30; Second Hand Exposure: No; Hx Alcohol Use: No Hx Substance Use: No Preferred Language: Syriac Communication Ability: Effective 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 Beliefs That Will Affect Care: None marital status: marital status details: 2 daughters Current Living Situation: Spouse Current Living Situation Comment: Lives with /home nursing current occupational status: retired other: worked [employer] for [employer] x 30 years previously Feels Safe at Home: Yes Assistive Devices: Glasses, Hearing Aid - Bilateral and Walker Review of Systems Review of Systems: All systems reviewed & are unremarkable except as noted in HPI & below Physical Exam Physical Exam: Temp Pulse Resp BP Pulse Ox 36.7 C 69 18 150/71 H 93 09/29/20 07:48 09/29/20 07:48 09/29/20 07:48 09/29/20 07:48 09/29/20 07:48 Constitutional: no acute distress Respiratory: normal respiratory effort, lungs clear to auscultation Cardiovascular: RRR, no murmur, no edema Gastrointestinal (Abdomen): normal bowel sounds, soft, nontender, no hepatosplenomegaly Neurologic: PERRL, EOMI, accommodation nl, no face palsy, no dysarthria Results & Data ([facility]) Vital Signs (Past 12 Hours) Vital Signs Temp Pulse Resp BP Pulse Ox 09/29/20 07:48 36.7 C 69 18 150/71 H 93 Laboratory Results Cardiac Enzymes 09/28/20 Range/Units 16:52 AST 31 (15-37) U/L Coagulation 09/28/20 Range/Units 17:43 PT 13.1 H (9.0-12.0) Seconds APTT 38.8 H (21.0-31.0) Seconds CBC 09/28/20 09/29/20 Range/Units 16:52 02:03 WBC 7.15 8.53 (4.8-10.8) K/uL RBC 3.03 L 2.78 L (4.7-6.1) M/uL Hgb 9.6 L 9.1 L (14.0-18.0) g/dL Hct 29.6 L 27.1 L (42-52) % Plt Count 252 232 (130-400) K/uL Neut # (Auto) 5.93 (1.4-6.5) K/uL Lymph # (Auto) 0.56 L (1.2-3.4) K/uL Haines # (Auto) 0.53 (0.11-0.59) K/uL Eos # (Auto) 0.12 (0-0.5) K/uL Baso # (Auto) 0.00 (0-0.2) K/uL Comprehensive Metabolic Panel 09/28/20 09/29/20 Range/Units 16:52 02:03 Sodium 130 L 131 L (136-145) mmol/L Potassium 4.4 4.4 (3.5-5.1) mmol/L Chloride 94 L 96 L (98-107) mmol/L Carbon Dioxide 27 29 (21-32) mmol/L BUN 32 H 34 H (7-18) mg/dl Creatinine 1.53 H 1.54 H (0.6-1.4) mg/dl Glucose 108 H 119 H (70-99) mg/dl Calcium 9.9 9.3 (8.5-10.1) mg/dl AST 31 (15-37) U/L ALT 35 (12-78) U/L Alkaline Phosphatase 89 (45-117) U/L Total Protein 9.9 H (6.4-8.2) gm/dl Albumin 2.4 L (3.4-5.0) gm/dl Intake and Output 09/28/20 09/29/20 09/29/20 22:59 06:59 14:59 Intake Total 580 / 580 Output Total 450 / 750 300 / 750 Balance 130 / -170 -300 / -170 Intake: IV 100 / 100 Acetaminophen 1,000 mg In 100 100 / 100 ml @ 400 mls/hr IV NOW STA Rx#: [id number] Oral 480 / 480 Output: Urine Amount (Catheter) 450 / 750 300 / 750 Curtis/Indwelling 450 / 750 300 / 750 Other: Other Intake Source NPO Weight 109.7 kg Weight Measurement Method Built in [facility] Diagnostic Findings EKG performed 09/28/2020 reveals biventricular pacing at 70 bpm with one-to-one capture, consistent with patient's history of underlying atrial fibrillation and AV junction ablation
[2020-09-29] MEDS: oxyCODONE/ACETAMINOPHEN 5mg/325mg TAB PO PRN (14:45)
[2020-09-29 15:20] LABS: Basophils # (auto) 0.01 K/uL (0-0.2); Basophils % (auto) 0.1 %; Eosinophils # (auto) 0.18 K/uL (0-0.5); Eosinophils % (auto) 2.6 %; Hematocrit (blood only) 26.6 % (42-52); Hemoglobin 8.8 g/dL (14.0-18.0); Immature Granulocytes # (auto) 0.01 K/uL (0.00-0.02); Immature Granulocytes % (auto) 0.1 %; Lymphocytes # (auto) 0.59 K/uL (1.2-3.4); Lymphocytes % (auto) 8.6 %; Mean Corpuscular Hemoglobin 32.2 pg (25-34); Mean Corpuscular Hgb Conc 33.1 g/dL (32-36); Mean Corpuscular Volume 97.4 fL (80-100); Mean Platelet Volume 9.9 fL (7.4-10.4); Monocytes % (auto) 10.2 %; Neutrophils # (auto) 5.35 K/uL (1.4-6.5); Neutrophils % (auto) 78.4 %; Platelet Count 244 K/uL (130-400); RDW Coefficient of Variation 15.7 % (11.5-14.5); RDW Standard Deviation 54.8 fL (36.4-46.3); Red Blood Count 2.73 M/uL (4.7-6.1); White Blood Count 6.84 K/uL (4.8-10.8)
[2020-09-29 15:36] LABS: BUN Creatinine Ratio 19.7 (10-20); Calcium 9.3 mg/dl (8.5-10.1); Creatinine Clr Calc Pharmacy 44.9 ml/min; Est GFR (African American) 49.5 ml/min; Est GFR (Non-African American) 42.7 ml/min; Potassium 4.5 mmol/L (3.5-5.1)
[2020-09-29] MEDS: ESCITALOPRAM OXALATE 10 MG TAB PO SCH (16:31)
--- NOTE | 2020-09-29 17:00 | Orthopedic Consultation ---
Date of Service September 29, 2020 Assessment & Plan (1) 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: He was seen and examined by Dr. Parsons today as well. His images were reviewed. We recommended continued conservative management with PT/OT. He can WBAT but should avoid hip abduction. He will need a walker and will likely need some rehab temporarily as well. They prefer [facility]. History of Present Illness Reason for Consultation: . Requesting Physician: . Attending Physician: Aftab King MD . 80 year old male who is approximately 2 1/2 years s/p ORIF of a right distal femur fracture. He fell yesterday and had immediate pain in the right hip area. He was unable to get up and was brought to [facility] by EMS. He had an xray and ct scan. His most significant pain seems to be around the lateral hip area/greater trochanter region. Denies groin pain. No other complaints at this time. Allergies Allergy/AdvReac Type Severity Reaction Status Date / Time No Known Drug Allergies Allergy Unknown Verified 09/28/20 17:54 Home Medications Medication Instructions Recorded Confirmed Type aspirin 81 mg tablet,delayed 81 mg PO QAM #0 11/04/16 09/28/20 History release ipratropium 0.5 mg-albuterol 3 mg 3 ml INHALATION Q4H PRN #0 inh 11/04/16 09/28/20 History (2.5 mg base)/3 mL nebulization soln albuterol sulfate 2.5 mg INHALATION BID #0 dose 01/16/17 09/28/20 History ferrous sulfate 325 mg (65 mg 325 mg PO QAM #0 03/21/17 09/28/20 History iron) tablet cholecalciferol (vitamin D3) 25 2,000 unit PO QAM #60 tab 02/19/18 09/28/20 Rx mcg (1,000 unit) tablet (Vitamin D3) vitamin B complex 1 tab PO QAM 10/18/18 09/28/20 History travoprost 0.004 % eye drops 1 drp OPB HS 09/20/19 09/28/20 History omega 3-yrz-iyu-fish oil 1,000 mg 1 cap PO QAM 11/26/19 09/28/20 History (120 mg-180 mg) capsule (Fish Oil) simvastatin 10 mg tablet 10 mg PO HS 11/26/19 09/28/20 History fluticasone 500 mcg-salmeterol 50 1 inh INH BID #60 ea 01/10/20 09/28/20 Rx mcg/dose blistr powdr for inhalation (Advair Diskus) furosemide 40 mg tablet 80 mg PO BID tab 01/13/20 09/28/20 History nitroglycerin 0.4 mg sublingual 0.4 mg SUBLINGUAL PRN PRN #15 tab 06/23/20 09/28/20 Rx tablet (Nitrostat) allopurinol 300 mg tablet 300 mg PO QAM #30 tab 06/30/20 09/28/20 Rx fluticasone propionate 50 2 spray INTRANASAL QAM #18.2 ml 06/30/20 09/28/20 Rx mcg/actuation nasal spray,suspension (Flonase Allergy Relief) ascorbic acid (vitamin C) 1,000 mg 1 g PO QAM 08/21/20 09/28/20 History tablet (Vitamin C) gabapentin 100 mg capsule 100 - 300 mg PO HS 08/21/20 09/28/20 History metoprolol tartrate 25 mg tablet 12.5 - 25 mg PO DIRECTED 08/21/20 09/28/20 History zinc 50 mg tablet 50 mg PO QAM 08/21/20 09/28/20 History pantoprazole 40 mg tablet,delayed 40 mg PO DAILYBB 08/28/20 09/28/20 History release (Protonix) spironolactone 25 mg tablet 12.5 - 25 mg PO BID 08/28/20 09/28/20 History azelastine 205.5 mcg (0.15 %) 1 spray INTNAS BID #30 ml 09/10/20 09/28/20 Rx nasal spray rivaroxaban 15 mg tablet (Xarelto) 15 mg PO HS tab 09/17/20 09/28/20 History acetaminophen 325 mg tablet 650 mg PO QID PRN 09/28/20 09/28/20 History (Tylenol) escitalopram oxalate 5 mg tablet 5 mg PO QDD 09/28/20 09/28/20 History (Lexapro) Past Med/Surg History Medical History Acquired deviated nasal septum Afib Clinton's palsy CAD (coronary artery disease) Chronic acquired lymphedema Chronic diastolic (congestive) heart failure Chronic hypoxemic respiratory failure Chronic renal insufficiency CKD (chronic kidney disease), stage III Complex sleep apnea syndrome COPD (chronic obstructive pulmonary disease) Cor pulmonale Coronary artery disease Depression DM II (diabetes mellitus, type II), controlled Foot drop, right GERD (gastroesophageal reflux disease) Gout History of heart attack Hx of fracture of pelvis Hyperlipidemia Hypertension Monoclonal gammopathy of unknown significance Neuropathy SANDOR (obstructive sleep apnea) nasal CPAP Pneumonia Surgical History History of cataract surgery History of coronary artery stent placement (1999) PCI L circumflex History of coronary artery stent placement (2000) PCI of LAD History of dental surgery History of right hip replacement (2016) History of tonsillectomy Hx of CABG (2011) triple vessel, 2011 S/P AV gerald ablation (04/12/17) S/P ORIF (open reduction internal fixation) fracture (2018) R femur Status cardiac pacemaker (04/12/17) biventricular pacemaker Family History Brother Coronary heart disease Brother Colorectal cancer Other Family history non-contributory Social History Smoking Status: Former smoker Years Smoked: 30; Second Hand Exposure: No; Hx Alcohol Use: No Hx Substance Use: No Preferred Language: Belizean Communication Ability: Effective 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 Physical Exam . Alert and oriented. No distress. Right leg: some tenderness around the lateral hip area, as well as some diffuse tenderness around the thigh. He is not able to lift his leg off the bed. He has lateral hip/thigh pain with range of motion of the hip. Results & Data Results & Data Laboratory Results . Diagnostic Findings .xrays and ct scan were reviewed. Ct scan is difficult to interpret due to the hardware. He has a previous watson, as well as a plate and screws from the previous ORIF. He has a greater trochanter fracture. PG Care Time/CCT Total # of Minutes Spent Total Time Spent with Patient: Total time spent is greater than 50% in coordination of care (as documented) at patient's floor/unit and/or counseling patient: Coding Level of Care Code 72174 Inpt Consult Level 4 Diagnoses 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 M97.8XXA; Z96.649
[2020-09-29] MEDS: ALBUTEROL 0.083% NEBU SOLN 3 ML VIAL NEB SCH (19:29)
[2020-09-29] MEDS: GABAPENTIN 100 MG CAP PO SCH (20:08)
[2020-09-29] MEDS: SIMVASTATIN 10 MG TAB PO SCH (20:08)
[2020-09-29] MEDS: TRAVOPROST Z 0.004% OPH SOLN 2.5 ML BTL OPB SCH (20:10)
--- NOTE | 2020-09-30 06:24 | Orthopedic Progress Note ---
Date of Service September 30, 2020 Assessment & Plan (1) 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: I went over his x-rays and CT scan carefully. I discussed the case my partner Dr. Rodrigo Parsons. We both feel his best course of treatment is to be weightbearing as tolerated as pain allows. He is a diaphyseal fitting stem in his right femur. He will be seen by physical therapy and Occupational Therapy. There are no surgical indications at this time. He can have a full diet and resume his Xarelto. I would like him to follow-up in my office in 3 weeks for repeat x-rays. Full orthopedic discharge instructions were placed in the discharge summary. If you have any further questions regarding his care please feel free to contact me at [phone] Subjective Rodrigo was seen and examined at bedside this morning. He still having some pain in the right hip. He is unable to bear weight on his right leg. He has not been seen by therapy yet because you were waiting for orthopedic recommendations. He was seen in consultation yesterday by my partner Dr. Rodrigo Parsons.. Review of Systems All systems reviewed & are unremarkable except as noted in HPI & below. Physical Exam Physical examination of the right hip, he has pain with logroll of the right leg. Most of pain is located in his lower femur. His last swelling of his right leg. He has minimal range of motion of his right knee with crepitus.. Results & Data Results & Data Laboratory Results . Diagnostic Findings X-rays of the right hip were reviewed and I can see a nondisplaced greater trochanter fracture I do not see any intertrochanteric fractures on the x-rays. CT scan was reviewed and on the axial CT scan images it looks like there is some intertrochanteric extension of the fracture, however, is difficult to say if that is just artifact from the prosthesis.. PG Care Time/CCT Total # of Minutes Spent Total Time Spent with Patient: Total time spent is greater than 50% in coordination of care (as documented) at patient's floor/unit and/or counseling patient: Coding Level of Care Code 06843 Subseq Hosp Care Lvl 2 Diagnoses 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 M97.01XA Encounter type: initial encounter Laterality: right (1) 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 Encounter type: initial encounter Laterality: right Qualified Code(s): M97.01XA - Periprosthetic fracture around internal prosthetic right hip joint, initial encounter
[2020-09-30] MEDS: PANTOprazole 40 MG TAB PO SCH (06:38)
[2020-09-30] MEDS: ALBUTEROL 0.083% NEBU SOLN 3 ML VIAL NEB SCH ×2 (07:20→19:10)
--- NOTE | 2020-09-30 08:21 | Hospitalist Progress Note ---
Date of Service September 30, 2020 Assessment & Plan (1) 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: Plan: CT on admission showed nondisplaced periprosthetic fracture of the right proximal femur along with a hemorrhage around the fracture. Orthopedics consulted -- weight bearing as tolerated, repeat x-ray in 3 weeks with follow up in office PT/OT evals pending -- patient stated was able to stand but not much more CM following as plans for rehab Pain control, antiemetics, supportive care --> Abd discomfort today, passing gas but no BM, hypoactive BS. Ordered miralax, colace scheduled. Dulcolax x 1 now. Will check KUB but does not appear to have acute abdomen at this time. Continue to monitor Also feeling warm, axillary temp 37.5C -- given fall [employer], will also check UA given cloudy urine on exam today as well as lower abd discomfort ASA resumed by cardiology yesterday, Xarelto for tonight hgb stable while on fluids while NPO yesterday, currently 8.7 from 8.8 previously Monitor counts in AM (2) CAD (coronary artery disease): Plan: Stents in 2009 and CABG in 2011. Resumed ASA 81mg daily Continue low-dose beta-gonsalo & statin (3) Chronic diastolic (congestive) heart failure: Plan: Follows with [facility] (only temporarily, but sees Dr Parson as outpatient) Lasix 80mg PO BID [employer] -- on hold along with spironolactone --> per Dr Nguyen, resuming lasix 80mg in AM. Messaged about patient having taken 80mg PO BID [employer] during f/u with local CHF clinic. Also, sodium improving off of diuretics Per , has been doing well with weights at home Appears slightly dry on exam currently -- reported balance -1200mL over last shift Will monitor AM labs and hold diuretics if needed Continue to monitor (4) CKD (chronic kidney disease), stage III: Plan: Cr 1.54 on admit Diuretics held as above, repeat Cr 1.3 Lasix to be resumed as above Continue to monitor BMP (5) Afib: Plan: EKG on admission showed ventricularly-paced rhythm. He has a BiV pacemaker. Hold Xarelto for now (missed x 2 days) -- resumed this evening per cardiology Continue beta-gonsalo as above (6) Hypertension: Plan: BP presently 137/67 Continue beta-gonsalo Diuretics for tomorrow as above Continue to monitor (7) COPD (chronic obstructive pulmonary disease): Plan: No shortness of breath or indication of exacerbation. Continue Advair BID -- he also utilizes albuterol nebs BID and this was changed to scheduled DuoNebs PRN Also with SANDOR -- CPAP at home 9cm H20 -- did not bring his and was ordered for overnight No further wheezing on exam (8) DM II (diabetes mellitus, type II), controlled: Plan: A1cs all below 6.5%, but high of 6.4%. Monitored today, blood sugars acceptable and will continue to monitor on AM labs No ISS for now Blood sugars remained acceptable (9) Depression: Plan: No indication of SI/HI on my interview. Continue SSRI (10) DVT prophylaxis: Plan: SCDs Xarelto resumed for this evening Admission and Anticipated Discharge Date Admission Date: September 28, 2020 Subjective Patient eval around lunch. Feeling poorly, abdominal discomfort and nauseous but no vomiting. Has not had BM but has been passing gas. Pain controlled but creaping up and would like something -- notified RN to administer. Also will check KUB and order bowel regimen. He states worked with therapy and was able to stand but had significant discomfort. Will see how he does over next 24 hours but plans for rehab at d/c. Will alert CM to make referrals once therapy evals received. No fever but does endorse some chills and felt room was warm. Curtis with cloudy urine and will also check urine culture given fall, although reported as mechanical. No chest pain, shortness of breath, headache, blurry vision reported. Review of Systems Review of Systems: All systems reviewed & are unremarkable except as noted in HPI & below Physical Exam Physical Exam: WD/WN, NAD, Alert and oriented x 3, cooperative and comfortable HEENT: head normocephalic, atraumatic, slightly dry mm, trachea midline without deviation Resp: no tachypnea, no cough, no wheezing, diminished, no crackles, stable on room air 97% CV: RRR, no murmur, trace edema b/l LE MSK: strength equal, R hip tender to palpation anterior thigh, greater trochanter, no hematoma appreciated, pain with log roll, edema of thigh noted, minimal ROM R knee with crepitus, baseline edema to LE, pulses palpable bilat erally GI: +BS throughout but hypoactive, +distended, non-tender on exam, no guarding or rigidity : Curtis with cloudy yellow urine draining Skin: warm, dry Results & Data Results & Data ([facility]) Vital Signs (Past 12 Hours) Vital Signs Temp Pulse Pulse Resp BP Pulse Ox 09/30/20 07:22 78 18 93 09/29/20 22:29 37.5 C 70 20 148/81 H 92 09/29/20 21:52 70 18 92 Laboratory Results 09/30/20 09/30/20 09/30/20 Range/Units 06:17 06:17 06:17 WBC 6.98 (4.8-10.8) K/uL RBC 2.73 L (4.7-6.1) M/uL Hgb 8.7 L (14.0-18.0) g/dL Hct 26.7 L (42-52) % MCV 97.8 (80-100) fL MCH 31.9 (25-34) pg MCHC 32.6 (32-36) g/dL RDW Std Deviation 56.3 H (36.4-46.3) fL RDW Coeff of Inez 15.8 H (11.5-14.5) % Plt Count 262 (130-400) K/uL MPV 10.5 H (7.4-10.4) fL Immature Gran % (Auto) 0.1 % Neut % (Auto) 76.5 % Lymph % (Auto) 8.3 % [place] % (Auto) 10.6 % Eos % (Auto) 4.4 % Baso % (Auto) 0.1 % Neut # (Auto) 5.33 (1.4-6.5) K/uL Lymph # (Auto) 0.58 L (1.2-3.4) K/uL [place] # (Auto) 0.74 H (0.11-0.59) K/uL Eos # (Auto) 0.31 (0-0.5) K/uL Baso # (Auto) 0.01 (0-0.2) K/uL Immature Gran # (Auto) 0.01 (0.00-0.02) K/uL Sodium 132 L (136-145) mmol/L Potassium 4.5 (3.5-5.1) mmol/L Chloride 97 L (98-107) mmol/L Carbon Dioxide 26 (21-32) mmol/L Anion Gap 9.0 (3-11) BUN 28 H (7-18) mg/dl Creatinine 1.30 (0.6-1.4) mg/dl Est Cr Clr Drug Dosing 51.8 ml/min Est GFR ( Amer) 58.9 ml/min Est GFR (Non-Af Amer) 50.8 ml/min BUN/Creatinine Ratio 21.8 H (10-20) Glucose 101 H (70-99) mg/dl POC Glucose (70-99) mg/dl Calcium 10.2 H (8.5-10.1) mg/dl Total Bilirubin 1.0 D (0.2-1) mg/dl AST 26 (15-37) U/L ALT 28 (12-78) U/L Alkaline Phosphatase 78 (45-117) U/L Total Protein 9.5 H (6.4-8.2) gm/dl Albumin 2.2 L (3.4-5.0) gm/dl Globulin 7.2 H (2.5-4.0) gm/dl Albumin/Globulin Ratio 0.3 L (0.9-2) Vitamin B12 600 (193-986) pg/ml 09/29/20 09/29/20 09/29/20 Range/Units 17:05 14:56 14:56 WBC 6.84 (4.8-10.8) K/uL RBC 2.73 L (4.7-6.1) M/uL Hgb 8.8 L (14.0-18.0) g/dL Hct 26.6 L (42-52) % MCV 97.4 (80-100) fL MCH 32.2 (25-34) pg MCHC 33.1 (32-36) g/dL RDW Std Deviation 54.8 H (36.4-46.3) fL RDW Coeff of Inez 15.7 H (11.5-14.5) % Plt Count 244 (130-400) K/uL MPV 9.9 (7.4-10.4) fL Immature Gran % (Auto) 0.1 % Neut % (Auto) 78.4 % Lymph % (Auto) 8.6 % [place] % (Auto) 10.2 % Eos % (Auto) 2.6 % Baso % (Auto) 0.1 % Neut # (Auto) 5.35 (1.4-6.5) K/uL Lymph # (Auto) 0.59 L (1.2-3.4) K/uL [place] # (Auto) 0.70 H (0.11-0.59) K/uL Eos # (Auto) 0.18 (0-0.5) K/uL Baso # (Auto) 0.01 (0-0.2) K/uL Immature Gran # (Auto) 0.01 (0.00-0.02) K/uL Sodium 131 L (136-145) mmol/L Potassium 4.5 (3.5-5.1) mmol/L Chloride 96 L (98-107) mmol/L Carbon Dioxide 27 (21-32) mmol/L Anion Gap 8.0 (3-11) BUN 30 H (7-18) mg/dl Creatinine 1.50 H (0.6-1.4) mg/dl Est Cr Clr Drug Dosing 44.9 ml/min Est GFR ( Amer) 49.5 ml/min Est GFR (Non-Af Amer) 42.7 ml/min BUN/Creatinine Ratio 19.7 (10-20) Glucose 120 H (70-99) mg/dl POC Glucose 112 H (70-99) mg/dl Calcium 9.3 (8.5-10.1) mg/dl Total Bilirubin (0.2-1) mg/dl AST (15-37) U/L ALT (12-78) U/L Alkaline Phosphatase (45-117) U/L Total Protein (6.4-8.2) gm/dl Albumin (3.4-5.0) gm/dl Globulin (2.5-4.0) gm/dl Albumin/Globulin Ratio (0.9-2) Vitamin B12 (193-986) pg/ml PG Care Time/CCT Total # of Minutes Spent Total Time Spent with Patient: Total time spent is greater than 50% in coordination of care (as documented) at patient's floor/unit and/or counseling patient: Coding Level of Care Code 99239 Subseq Hosp Care Lvl 3 Diagnoses 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 M97.01XA Encounter type: initial encounter Laterality: right CAD (coronary artery disease) I25.10 Chronic diastolic (congestive) heart failure I50.32 CKD (chronic kidney disease), stage III N18.30 Afib I48.91 Atrial fibrillation type: unspecified Hypertension I10 Hypertension type: essential hypertension COPD (chronic obstructive pulmonary disease) J44.9 COPD type: unspecified COPD DM II (diabetes mellitus, type II), controlled E11.9 Diabetes mellitus fdc insulin use: without assistant terminal manager use Diabetes mellitus complication status: without complication Depression F32.9 DVT prophylaxis Z29.9 (1) 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 Encounter type: initial encounter Laterality: right Qualified Code(s): M97.01XA - Periprosthetic fracture around internal prosthetic right hip joint, initial encounter (2) Afib Atrial fibrillation type: unspecified Qualified Code(s): I48.91 - Unspecified atrial fibrillation (3) Hypertension Hypertension type: essential hypertension Qualified Code(s): I10 - Essential (primary) hypertension (4) COPD (chronic obstructive pulmonary disease) COPD type: unspecified COPD Qualified Code(s): J44.9 - Chronic obstructive pulmonary disease, unspecified (5) DM II (diabetes mellitus, type II), controlled Diabetes mellitus fdc insulin use: without assistant terminal manager use Diabetes mellitus complication status: without complication Qualified Code(s): E11.9 - Type 2 diabetes mellitus without complications
[2020-09-30 08:43] LABS: Albumin Level 2.2 gm/dl (3.4-5.0); BUN Creatinine Ratio 21.8 (10-20); Basophils # (auto) 0.01 K/uL (0-0.2); Basophils % (auto) 0.1 %; Calcium 10.2 mg/dl (8.5-10.1); Creatinine Clr Calc Pharmacy 51.8 ml/min; Eosinophils # (auto) 0.31 K/uL (0-0.5); Eosinophils % (auto) 4.4 %; Est GFR (African American) 58.9 ml/min; Est GFR (Non-African American) 50.8 ml/min; Hematocrit (blood only) 26.7 % (42-52); Hemoglobin 8.7 g/dL (14.0-18.0); Immature Granulocytes # (auto) 0.01 K/uL (0.00-0.02); Immature Granulocytes % (auto) 0.1 %; Lymphocytes # (auto) 0.58 K/uL (1.2-3.4); Lymphocytes % (auto) 8.3 %; Mean Corpuscular Hemoglobin 31.9 pg (25-34); Mean Corpuscular Hgb Conc 32.6 g/dL (32-36); Mean Corpuscular Volume 97.8 fL (80-100); Mean Platelet Volume 10.5 fL (7.4-10.4); Monocytes # (auto) 0.74 K/uL (0.11-0.59); Monocytes % (auto) 10.6 %; Neutrophils # (auto) 5.33 K/uL (1.4-6.5); Neutrophils % (auto) 76.5 %; Platelet Count 262 K/uL (130-400); Potassium 4.5 mmol/L (3.5-5.1); RDW Coefficient of Variation 15.8 % (11.5-14.5); RDW Standard Deviation 56.3 fL (36.4-46.3); Red Blood Count 2.73 M/uL (4.7-6.1); White Blood Count 6.98 K/uL (4.8-10.8)
[2020-09-30 08:48] LABS: Albumin Globulin Ratio 0.3 (0.9-2); Globulin 7.2 gm/dl (2.5-4.0); Total Protein 9.5 gm/dl (6.4-8.2)
[2020-09-30] MEDS: ACETAMINOPHEN 325 MG TAB PO PRN ×2 (09:02→12:54)
[2020-09-30] MEDS: FLUTICASONE PROPIONATE NA SPR 16 GM BTL NAE SCH (09:03)
[2020-09-30] MEDS: METOPROLOL TARTRATE 25 MG TAB PO SCH ×2 (09:03→21:59)
[2020-09-30] MEDS: allopurinoL 300 MG TAB PO SCH (09:03)
[2020-09-30] MEDS: FLUTICASONE/VILANTEROL 100/25MCG 14 PUFFS/INHALER INH SCH (09:03)
--- NOTE | 2020-09-30 12:12 | Cardiology Progress Note ---
Date of Service September 30, 2020 Assessment & Plan (1) Fall from standing: (2) CAD (coronary artery disease): (3) Chronic diastolic (congestive) heart failure: (4) Chronic atrial fibrillation: Plan: Stable cardiac signs and symptoms. Patient unable to tell me his most recent home dose of furosemide. Resume Xarelto for stroke prophylaxis, first dose with evening meal at 1700. Resume ASA tomorrow. Resume furosemide 80 mg PO daily tomorrow. Admission and Anticipated Discharge Date Admission Date: September 28, 2020 Subjective Patient seen in follow up. he is pleased with the news that ortho recommended non operative management of his right femur fracture. He is not on telemetry. No cardiac complaints. Review of Systems Review of Systems: All systems reviewed & are unremarkable except as noted in HPI & below Physical Exam Physical Exam: Temp Pulse Resp BP Pulse Ox 36.7 C 69 18 150/71 H 93 09/29/20 07:48 09/29/20 07:48 09/29/20 07:48 09/29/20 07:48 09/29/20 07:48 Constitutional: no acute distress Respiratory: normal respiratory effort, lungs clear to auscultation Cardiovascular: RRR, no murmur, no edema Gastrointestinal (Abdomen): normal bowel sounds, soft, nontender, no hepatosplenomegaly Neurologic: PERRL, EOMI, accommodation nl, no face palsy, no dysarthria Results & Data ([facility]) Vital Signs (Past 12 Hours) Vital Signs Temp Pulse Resp BP Pulse Ox 09/30/20 07:30 37.1 C 68 16 137/67 97 09/30/20 07:22 78 18 93 Laboratory Results Cardiac Enzymes 09/30/20 Range/Units 06:17 AST 26 (15-37) U/L CBC 09/29/20 09/30/20 Range/Units 14:56 06:17 WBC 6.84 6.98 (4.8-10.8) K/uL RBC 2.73 L 2.73 L (4.7-6.1) M/uL Hgb 8.8 L 8.7 L (14.0-18.0) g/dL Hct 26.6 L 26.7 L (42-52) % Plt Count 244 262 (130-400) K/uL Neut # (Auto) 5.35 5.33 (1.4-6.5) K/uL Lymph # (Auto) 0.59 L 0.58 L (1.2-3.4) K/uL [place] # (Auto) 0.70 H 0.74 H (0.11-0.59) K/uL Eos # (Auto) 0.18 0.31 (0-0.5) K/uL Baso # (Auto) 0.01 0.01 (0-0.2) K/uL Comprehensive Metabolic Panel 09/29/20 09/30/20 Range/Units 14:56 06:17 Sodium 131 L 132 L (136-145) mmol/L Potassium 4.5 4.5 (3.5-5.1) mmol/L Chloride 96 L 97 L (98-107) mmol/L Carbon Dioxide 27 26 (21-32) mmol/L BUN 30 H 28 H (7-18) mg/dl Creatinine 1.50 H 1.30 (0.6-1.4) mg/dl Glucose 120 H 101 H (70-99) mg/dl Calcium 9.3 10.2 H (8.5-10.1) mg/dl AST 26 (15-37) U/L ALT 28 (12-78) U/L Alkaline Phosphatase 78 (45-117) U/L Total Protein 9.5 H (6.4-8.2) gm/dl Albumin 2.2 L (3.4-5.0) gm/dl Intake and Output 09/29/20 09/30/20 09/30/20 22:59 06:59 14:59 Output Total 800 / 1200 400 / 1200 Balance -800 / -1200 -400 / -1200 Output: Urine Amount (Catheter) 800 / 1200 400 / 1200 Curtis/Indwelling 800 / 1200 400 / 1200
[2020-09-30] MEDS ORDERED: bisacodyL 5 MG TABEC PO ONE (12:44)
[2020-09-30] MEDS: POLYETHYLENE (MIRALAX) 17 GM PACK PO SCH (12:53)
[2020-09-30] MEDS: DOCUSATE SODIUM 100 MG CAP PO SCH ×2 (12:53→22:01)
[2020-09-30] MEDS ORDERED: FUROSEMIDE 40 MG in SYRINGE 0 ML IV ONE (13:15)
[2020-09-30 13:32] LABS: Appearance Urine Cloudy (Clear); Bacteria Urine Automated Negative (Negative); Bilirubin Urine Negative (Negative); Blood Urine 3+ (Negative); Color Urine Dark Yellow; Epithelial Cell Urine Auto >30 /lpf (0-5); Glucose Urine UA Negative (Negative); Ketones Urine Negative (Negative); Leukocyte Esterase Urine 1+ (Negative); Nitrite Urine Negative (Negative); Protein Urine 2+ (Negative); Specific Gravity Urine 1.021 (1.000-1.030); Urobilinogen Urine Negative (Negative); WBC Urine Automated >30 /hpf (0-5)
[2020-09-30 14:03] LABS: RBC Urine Automated >30 /hpf (0-4); Renal Epithelial Cells Urine 0-5 /lpf (0-5)
--- NOTE | 2020-09-30 14:10 | XRay Report ---
KUB CLINICAL HISTORY: distension, hypoactive BS COMPARISON STUDY: CT of the abdomen and pelvis September 28, 2020. FINDINGS: Pacer leads are partially imaged as well as a right hip arthroplasty and right acetabular r econstruction. A moderate amount of stool within the rectum is noted. There is no evidence for a alicia l obstruction. There is moderate gaseous distention of the stomach. IMPRESSION: 1. No evidence for a bowel obstruction. 2. Gaseous distention of the stomach. 3. Moderate amount of stool within the rectum. ACT 112: Negative or not required by law. Electronically signed by: Sergio Pollack M.D. 09/30/2020 2:08 PM
[2020-09-30] MEDS: SODIUM CHLORIDE 0.9% 1000ML 1,000 ML IV SCH (14:30)
--- NOTE | 2020-09-30 15:03 | Ultrasound Report ---
US gallbladder CLINICAL HISTORY: Abdominal pain and nausea. COMPARISON STUDY: Right upper quadrant ultrasound August 21, 2015. CT of the abdomen and pelvis September 28, 2020. FINDINGS: This exam is compromised by suboptimal penetration. No hepatic lesions are identified. The liver appears slightly echogenic. There is no biliary ductal dilatation. The common bile duct measure s 5 mm in caliber. There are multiple gallstones within the gallbladder. There is no gallbladder wall thickening. No sonographic Blanca sign was elicited. Pancreatic body is normal. Head and tail are ob scured. There is no right hydronephrosis. IMPRESSION: 1. Cholelithiasis. No evidence for acute cholecystitis. 2. No biliary ductal dilatation. 3. Exam compromised by suboptimal penetration. ACT 112: Negative or not required by law. Electronically signed by: Sergio Pollack M.D. 09/30/2020 3:01 PM
[2020-09-30] MEDS ORDERED: cefTRIAXone SODIUM 1,000 MG in DEXTROSE 5% 50 ML IV SCH (15:30)
--- NOTE | 2020-09-30 15:57 | Electrocardiogram Report ---
Test Reason : Blood Pressure : / mmHG Vent. Rate : 070 BPM Atrial Rate : 227 BPM P-R Int : 000 ms QRS Dur : 130 ms QT Int : 438 ms P-R-T Axes : 000 -40 093 degrees QTc Int : 473 ms Poor data quality, interpretation may be adversely affected Ventricular-paced rhythm Abnormal ECG When compared with ECG of 21-AUG-2020 12:54, No significant change was found Confirmed by Bunny Chambers ([id number]) on 09/30/2020 3:57:05 PM Referred By: REFERRED SELF Confirmed By:Bunny Chambers
[2020-09-30] MEDS ORDERED: RIVAROXABAN 15 MG TAB PO SCH (17:00)
[2020-09-30] MEDS: ESCITALOPRAM OXALATE 10 MG TAB PO SCH (17:21)
[2020-09-30 19:12] LABS: Hematocrit (blood only) 25.8 % (42-52); Hemoglobin 8.7 g/dL (14.0-18.0); Mean Corpuscular Hemoglobin 32.7 pg (25-34); Mean Corpuscular Hgb Conc 33.7 g/dL (32-36); Mean Platelet Volume 10.2 fL (7.4-10.4); Platelet Count 210 K/uL (130-400); RDW Coefficient of Variation 15.6 % (11.5-14.5); RDW Standard Deviation 54.3 fL (36.4-46.3); Red Blood Count 2.66 M/uL (4.7-6.1); White Blood Count 7.77 K/uL (4.8-10.8)
[2020-09-30 19:29] LABS: Albumin Level 2.1 gm/dl (3.4-5.0); BUN Creatinine Ratio 22.9 (10-20); Calcium 9.4 mg/dl (8.5-10.1); Creatinine Clr Calc Pharmacy 48.1 ml/min; Est GFR (African American) 53.8 ml/min; Est GFR (Non-African American) 46.5 ml/min; Potassium 4.3 mmol/L (3.5-5.1)
[2020-09-30 19:32] LABS: Albumin Globulin Ratio 0.3 (0.9-2); Bilirubin,Total 1.1 mg/dl (0.2-1); Globulin 7.2 gm/dl (2.5-4.0); Total Protein 9.3 gm/dl (6.4-8.2)
[2020-09-30] MEDS ORDERED: HEPARIN SOD 5,000 UNIT/0.5 ML VIAL SQ ONE (20:00)
[2020-09-30] MEDS ORDERED: bisacodyL 10 MG SUPP PR STA (20:40)
[2020-09-30] MEDS: SPIRONOLACTONE 12.5 MG TAB PO SCH (21:58)
[2020-09-30] MEDS: GABAPENTIN 100 MG CAP PO SCH (21:59)
[2020-09-30] MEDS: SIMVASTATIN 10 MG TAB PO SCH (22:00)
[2020-09-30] MEDS: TRAVOPROST Z 0.004% OPH SOLN 2.5 ML BTL OPB SCH (22:00)
[2020-10-01] MEDS: SODIUM CHLORIDE 0.9% 1000ML 1,000 ML IV SCH ×2 (00:28→10:14)
[2020-10-01] MEDS: PANTOprazole 40 MG TAB PO SCH (06:05)
[2020-10-01] MEDS: ALBUTEROL 0.083% NEBU SOLN 3 ML VIAL NEB SCH ×2 (07:00→19:38)
[2020-10-01 08:20] LABS: Hematocrit (blood only) 24.6 % (42-52); Hemoglobin 8.2 g/dL (14.0-18.0); Mean Corpuscular Hemoglobin 31.9 pg (25-34); Mean Corpuscular Hgb Conc 33.3 g/dL (32-36); Mean Corpuscular Volume 95.7 fL (80-100); Mean Platelet Volume 10.1 fL (7.4-10.4); Platelet Count 214 K/uL (130-400); RDW Coefficient of Variation 15.8 % (11.5-14.5); RDW Standard Deviation 55.2 fL (36.4-46.3); Red Blood Count 2.57 M/uL (4.7-6.1); White Blood Count 6.45 K/uL (4.8-10.8)
[2020-10-01] MEDS: FLUTICASONE PROPIONATE NA SPR 16 GM BTL NAE SCH (08:40)
[2020-10-01] MEDS: SPIRONOLACTONE 12.5 MG TAB PO SCH (08:40)
[2020-10-01] MEDS: allopurinoL 300 MG TAB PO SCH (08:40)
[2020-10-01] MEDS: ASPIRIN 81 MG ECTAB PO SCH (08:40)
[2020-10-01] MEDS: METOPROLOL TARTRATE 25 MG TAB PO SCH ×2 (08:40→21:14)
[2020-10-01] MEDS: FLUTICASONE/VILANTEROL 100/25MCG 14 PUFFS/INHALER INH SCH (08:40)
[2020-10-01] MEDS: DOCUSATE SODIUM 100 MG CAP PO SCH ×2 (08:40→21:13)
[2020-10-01] MEDS: POLYETHYLENE (MIRALAX) 17 GM PACK PO SCH (08:41)
[2020-10-01 08:53] LABS: Albumin Level 2.1 gm/dl (3.4-5.0); BUN Creatinine Ratio 24.3 (10-20); Calcium 9.2 mg/dl (8.5-10.1); Creatinine Clr Calc Pharmacy 53.4 ml/min; Est GFR (African American) 61.2 ml/min; Est GFR (Non-African American) 52.8 ml/min; Potassium 4.1 mmol/L (3.5-5.1)
[2020-10-01 08:56] LABS: Albumin Globulin Ratio 0.3 (0.9-2); Bilirubin,Total 1.1 mg/dl (0.2-1); Globulin 6.8 gm/dl (2.5-4.0); Total Protein 8.9 gm/dl (6.4-8.2)
[2020-10-01] MEDS ORDERED: FUROSEMIDE 80 MG TAB PO SCH (09:00)
--- NOTE | 2020-10-01 09:24 | Hospitalist Progress Note ---
Date of Service October 01, 2020 Assessment & Plan (1) 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: Plan: CT on admission showed nondisplaced periprosthetic fracture of the right proximal femur along with a hemorrhage around the fracture. Orthopedics consulted -- weight bearing as tolerated, repeat x-ray in 3 weeks with follow up in office PT/OT evals -- rehab at d/c . patient prefers [facility] Vit D wnl (low normal) however hypercalcemia 10.2 with low albumin on 09/30. Given IVF and lasix. Ca now normal -- discontinued vit d supplementation. Nephrology with recs to resume usual lasix, check repeat urine to eval for protein once griffith removed Pain controlled with ordered medications +BM last evening (dulcolax given, miralax and colace scheduled) and abd discomfort improved -- continue regimen while on pain medications. Temp 38.1C last night but patient denied feeling feverish CXR on admission without evidence of infection Urine checked -- appeared dirty but no protein. Urine cx gram negative bacilli but only 20,000CFU. Given fall and age and appearance of urine on admission, low threshold to start abx --> MONITOR ASA resumed by cardiology hgb stable 8.2 but did get IVF yesterday through today for hypercalcemia/dehydration (improved today and discontinued) Discussed with coag clinic --> plans to utilize Lovenox and then once stable can transition to Eliquis BID instead of previous Xarelto-- this can be done at rehab. Monitor labs in AM/volume status but suspect if bed available at [facility] could consider discharge tomorrow (2) CAD (coronary artery disease): Plan: Stents in 2009 and CABG in 2011. Resumed ASA 81mg daily Lovenox as above (given dose Heparin SQ last evening ) with plans to transition to Eliquis Continue low-dose beta-gonsalo & statin (3) Chronic diastolic (congestive) heart failure: Plan: Follows with [facility] (only temporarily, but sees Dr Parson as outpatient) Volume up today --> resumed spironolactone but changed to 25 + 12.5mg as taking at home --> reviewed lasix 80mg BID with Dr Nguyen and ok to continue Discontinued IVF as given for above dehydration/ATN/hypercalcemia Weights, I&Os Monitor volume status (4) CKD (chronic kidney disease), stage III: Plan: Cr 1.54 on admit Diuretics held as above and fluids provided and Cr improved to 1.26 however volume up as stated above Nephrology consulted for ATN/hypercalcemia Vit D normal and supplementation stopped. PTH pending IVF discontinued and resumed lasix per recs Follow repeat urine after griffith removed Continue to monitor BMP (5) Afib: Plan: Permanent EKG on admission showed ventricularly-paced rhythm. He has a BiV pacemaker. Plans for Lovenox --> Eliquis as above once stable Follow up Daric cards outpatient Continue BB Rate controleld (6) Hypertension: Plan: BP presently 140/72 Continue BB, lasix, spironolactone as above Continue to monitor (7) COPD (chronic obstructive pulmonary disease): Plan: No shortness of breath or indication of exacerbation however volume up and diuretics resumed Continue Advair BID -- he also utilizes albuterol nebs BID and this was changed to scheduled slight wheezing posterior lung quarles today and pt asked for additional neb-- to be provided DuoNebs PRN Also with SANDOR -- CPAP at home 9cm H20, ordered 95% on RA (8) DM II (diabetes mellitus, type II), controlled: Plan: A1cs all below 6.5%, but high of 6.4%. BSGs acceptable (9) Depression: Plan: No indication of SI/HI on my interview. Continue SSRI (10) DVT prophylaxis: Plan: SCDs Lovenox --> Eliquis as above Admission and Anticipated Discharge Date Admission Date: September 28, 2020 Subjective Patient evaluated this afternoon Feeling better today. Temp last night but felt the room was chilled yesterday and denied feeling feverish. Pain controlled with ordered medications but is painful with standing as expected. Much improvement with ice pack added this morning. No numbness/tingling noted. No shortness of breath but does feel tightness. Will get him neb treatment. Eating/drinking without issue. No n/v or abdominal pain. States, "I got cleaned out" when asked about a bowel movement. Discussed Lovenox for now and then transition to Eliquis if bleeding stable as Lovenox easier for reversal if needed. Nephrology consulted and agreed to resume lasix. Discussed repeating urine sample after griffith removed to check protein status. No fever, chills, chest pain, shortness of breath, or other issues at this time. Questions/concerns addressed and will update again this evening. Review of Systems Review of Systems: All systems reviewed & are unremarkable except as noted in HPI & below Physical Exam Physical Exam: WD/WN, NAD, Alert and oriented x 2, easily reoriented, cooperative and comfortable HEENT: head normocephalic, atraumatic, mmm, trachea midline without deviation Resp: no tachypnea, no cough, posterior upper lung quarles with expiratory wheezing, no wheezing anterior lung quarles, bibasilar crackles. 95% on Room Air CV: irregularly irregular, no murmur appreciated, 1+ pedal edema, R thigh edema, calves non-tender to palpation, pulses palpable, NVI. pain with log roll MSK: strength equal, R hip tender to palpation anterior thigh, greater trochanter, no hematoma appreciated but is edematous, pain with log roll, minimal ROM R knee with crepitus, GI: +BS throughout, +distended, non-tender on exam, no guarding or rigidity : Griffith with clearer yellow urine draining Skin: warm, dry Results & Data Results & Data ([facility]) Vital Signs (Past 12 Hours) Vital Signs Temp Pulse Pulse Resp BP BP Pulse Ox 10/01/20 07:26 36.7 C 70 24 124/86 96 10/01/20 07:00 69 16 94 09/30/20 22:00 38.1 C H 70 22 136/68 94 Laboratory Results 10/01/20 10/01/20 10/01/20 Range/Units 07:40 07:40 07:40 WBC 6.45 (4.8-10.8) K/uL RBC 2.57 L (4.7-6.1) M/uL Hgb 8.2 L (14.0-18.0) g/dL Hct 24.6 L (42-52) % MCV 95.7 (80-100) fL MCH 31.9 (25-34) pg MCHC 33.3 (32-36) g/dL RDW Std Deviation 55.2 H (36.4-46.3) fL RDW Coeff of Inez 15.8 H (11.5-14.5) % Plt Count 214 (130-400) K/uL MPV 10.1 (7.4-10.4) fL Sodium 131 L (136-145) mmol/L Potassium 4.1 (3.5-5.1) mmol/L Chloride 99 (98-107) mmol/L Carbon Dioxide 24 (21-32) mmol/L Anion Gap 9.0 (3-11) BUN 31 H (7-18) mg/dl Creatinine 1.26 (0.6-1.4) mg/dl Est Cr Clr Drug Dosing 53.4 ml/min Est GFR ( Amer) 61.2 ml/min Est GFR (Non-Af Amer) 52.8 ml/min BUN/Creatinine Ratio 24.3 H (10-20) Glucose 102 H (70-99) mg/dl Calcium 9.2 (8.5-10.1) mg/dl Total Bilirubin 1.1 H (0.2-1) mg/dl AST 20 (15-37) U/L ALT 24 (12-78) U/L Alkaline Phosphatase 74 (45-117) U/L Total Protein 8.9 H (6.4-8.2) gm/dl Albumin 2.1 L (3.4-5.0) gm/dl Globulin 6.8 H (2.5-4.0) gm/dl Albumin/Globulin Ratio 0.3 L (0.9-2) Vitamin B12 (193-986) pg/ml 25-OH Vitamin D Total (30-100) ng/ml Procalcitonin Pending PTH Intact Urine Color Urine Appearance (Clear) Urine pH (4.5-7.5) Ur Specific Jay Em (1.000-1.030) Urine Protein (Negative) Urine Glucose (UA) (Negative) Urine Ketones (Negative) Urine Blood (Negative) Urine Nitrite (Negative) Urine Bilirubin (Negative) Urine Urobilinogen (Negative) Ur Leukocyte Esterase (Negative) Urine WBC (Auto) (0-5) /hpf Urine RBC (Auto) (0-4) /hpf U Hyaline Cast (Auto) (0-5) /lpf U Epithel Cells (Auto) (0-5) /lpf Urine Bacteria (Auto) (Negative) Ur Renal Epithelial Cell (0-5) /lpf Granular Casts (0) /lpf Urine Yeast 10/01/20 09/30/20 09/30/20 Range/Units 07:40 19:03 19:03 WBC 7.77 (4.8-10.8) K/uL RBC 2.66 L (4.7-6.1) M/uL Hgb 8.7 L (14.0-18.0) g/dL Hct 25.8 L (42-52) % MCV 97.0 (80-100) fL MCH 32.7 (25-34) pg MCHC 33.7 (32-36) g/dL RDW Std Deviation 54.3 H (36.4-46.3) fL RDW Coeff of Inez 15.6 H (11.5-14.5) % Plt Count 210 (130-400) K/uL MPV 10.2 (7.4-10.4) fL Sodium 129 L (136-145) mmol/L Potassium 4.3 (3.5-5.1) mmol/L Chloride 95 L (98-107) mmol/L Carbon Dioxide 25 (21-32) mmol/L Anion Gap 9.0 (3-11) BUN 32 H (7-18) mg/dl Creatinine 1.40 (0.6-1.4) mg/dl Est Cr Clr Drug Dosing 48.1 ml/min Est GFR ( Amer) 53.8 ml/min Est GFR (Non-Af Amer) 46.5 ml/min BUN/Creatinine Ratio 22.9 H (10-20) Glucose 121 H (70-99) mg/dl Calcium 9.4 (8.5-10.1) mg/dl Total Bilirubin 1.1 H (0.2-1) mg/dl AST 24 (15-37) U/L ALT 28 (12-78) U/L Alkaline Phosphatase 77 (45-117) U/L Total Protein 9.3 H (6.4-8.2) gm/dl Albumin 2.1 L (3.4-5.0) gm/dl Globulin 7.2 H (2.5-4.0) gm/dl Albumin/Globulin Ratio 0.3 L (0.9-2) Vitamin B12 (193-986) pg/ml 25-OH Vitamin D Total (30-100) ng/ml Procalcitonin PTH Intact Pending Urine Color Urine Appearance (Clear) Urine pH (4.5-7.5) Ur Specific Jay Em (1.000-1.030) Urine Protein (Negative) Urine Glucose (UA) (Negative) Urine Ketones (Negative) Urine Blood (Negative) Urine Nitrite (Negative) Urine Bilirubin (Negative) Urine Urobilinogen (Negative) Ur Leukocyte Esterase (Negative) Urine WBC (Auto) (0-5) /hpf Urine RBC (Auto) (0-4) /hpf U Hyaline Cast (Auto) (0-5) /lpf U Epithel Cells (Auto) (0-5) /lpf Urine Bacteria (Auto) (Negative) Ur Renal Epithelial Cell (0-5) /lpf Granular Casts (0) /lpf Urine Yeast 09/30/20 09/30/20 09/30/20 Range/Units 13:09 13:00 06:17 WBC (4.8-10.8) K/uL RBC (4.7-6.1) M/uL Hgb (14.0-18.0) g/dL Hct (42-52) % MCV (80-100) fL MCH (25-34) pg MCHC (32-36) g/dL RDW Std Deviation (36.4-46.3) fL RDW Coeff of Inez (11.5-14.5) % Plt Count (130-400) K/uL MPV (7.4-10.4) fL Sodium (136-145) mmol/L Potassium (3.5-5.1) mmol/L Chloride (98-107) mmol/L Carbon Dioxide (21-32) mmol/L Anion Gap (3-11) BUN (7-18) mg/dl Creatinine (0.6-1.4) mg/dl Est Cr Clr Drug Dosing ml/min Est GFR ( Amer) ml/min Est GFR (Non-Af Amer) ml/min BUN/Creatinine Ratio (10-20) Glucose (70-99) mg/dl Calcium (8.5-10.1) mg/dl Total Bilirubin (0.2-1) mg/dl AST (15-37) U/L ALT (12-78) U/L Alkaline Phosphatase (45-117) U/L Total Protein (6.4-8.2) gm/dl Albumin (3.4-5.0) gm/dl Globulin (2.5-4.0) gm/dl Albumin/Globulin Ratio (0.9-2) Vitamin B12 600 (193-986) pg/ml 25-OH Vitamin D Total 42.5 (30-100) ng/ml Procalcitonin PTH Intact Urine Color Dark Yellow Urine Appearance Cloudy A (Clear) Urine pH 5.0 (4.5-7.5) Ur Specific Jay Em 1.021 (1.000-1.030) Urine Protein 2+ H (Negative) Urine Glucose (UA) Negative (Negative) Urine Ketones Negative (Negative) Urine Blood 3+ H (Negative) Urine Nitrite Negative (Negative) Urine Bilirubin Negative (Negative) Urine Urobilinogen Negative (Negative) Ur Leukocyte Esterase 1+ H (Negative) Urine WBC (Auto) >30 H (0-5) /hpf Urine RBC (Auto) >30 H (0-4) /hpf U Hyaline Cast (Auto) 5-10 H (0-5) /lpf U Epithel Cells (Auto) >30 H (0-5) /lpf Urine Bacteria (Auto) Negative (Negative) Ur Renal Epithelial Cell 0-5 (0-5) /lpf Granular Casts 1-5 H (0) /lpf Urine Yeast Not Reportable Diagnostic Findings Gallbladder Ultrasound 09/30/20 13:02 US gallbladder CLINICAL HISTORY: Abdominal pain and nausea. COMPARISON STUDY: Right upper quadrant ultrasound August 21, 2015. CT of the abdomen and pelvis September 28, 2020. FINDINGS: This exam is compromised by suboptimal penetration. No hepatic lesions are identified. The liver appears slightly echogenic. There is no biliary ductal dilatation. The common bile duct measures 5 mm in caliber. There are multiple gallstones within the gallbladder. There is no gallbladder wall thickening. No sonographic Blanca sign was elicited. Pancreatic body is normal. Head and tail are obscured. There is no right hydronephrosis. IMPRESSION: 1. Cholelithiasis. No evidence for acute cholecystitis. 2. No biliary ductal dilatation. 3. Exam compromised by suboptimal penetration. ACT 112: Negative or not required by law. Electronically signed by: Sergio Pollack M.D. 09/30/2020 3:01 PM PG Care Time/CCT Total # of Minutes Spent Total Time Spent with Patient: Total time spent is greater than 50% in coordination of care (as documented) at patient's floor/unit and/or counseling patient: Coding Level of Care Code 54134 Subseq Hosp Care Lvl 3 Diagnoses 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 M97.01XA Encounter type: initial encounter Laterality: right CAD (coronary artery disease) I25.10 Chronic diastolic (congestive) heart failure I50.32 CKD (chronic kidney disease), stage III N18.30 Afib I48.91 Atrial fibrillation type: unspecified Hypertension I10 Hypertension type: essential hypertension COPD (chronic obstructive pulmonary disease) J44.9 COPD type: unspecified COPD DM II (diabetes mellitus, type II), controlled E11.9 Diabetes mellitus complication status: without complication Diabetes mellitus retirement insulin use: without retirement use Depression F32.9 DVT prophylaxis Z29.9 (1) Afib Atrial fibrillation type: unspecified Qualified Code(s): I48.91 - Unspecified atrial fibrillation (2) 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 Encounter type: initial encounter Laterality: right Qualified Code(s): M97.01XA - Periprosthetic fracture around internal prosthetic right hip joint, initial encounter (3) DM II (diabetes mellitus, type II), controlled Diabetes mellitus complication status: without complication 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
[2020-10-01] MEDS ORDERED: ENOXAPARIN INJ 40 MG/0.4 ML SYR SQ ONE (11:27)
--- NOTE | 2020-10-01 12:12 | Nephrology Consultation ---
Date of Consultation October 01, 2020 Assessment & Plan (1) Stage 3b chronic kidney disease: (2) Chronic diastolic (congestive) heart failure: (3) 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: Stage IIIB CKD secondary to microvascular disease and prior history of repeated episodes of YEIMI, creatinine staying relatively stable close to baseline. Urinalysis showed 2+ proteinuria and hematuria but no pyuria or bacteriuria. voiding normally. Blood pressure has been acceptable. Multiple electrolyte abnormality including a mild hypercalcemia and hyponatremia both seem to have improved. vitamin-D was normal, PTH pending. Seems volume overloaded on exam. -- Recommend discontinuing IV fluid, continue on Lasix 80 mg daily. -- Unclear etiology for proteinuria hematuria, could be Curtis sample, once Curtis catheter removed, would recommend repeating urinalysis. -- keep off of all calcium and vitamin-D supplement for now will follow Thank you for allowing me to participate in your patient's care. It was a pleasure to see Michael History of Present Illness Reason for Consultation: Chronic kidney disease, assist with volume management and diuretic use Attending Physician: Aftab King MD History of Present Illness Mr. Mane is a 80yo M with H stage 3B CKD, CAD, HTN, DM, diastolic CHF admitted with fall and periprosthetic fracture to the right femur. Nephrology consult was requested for volume management with history of diastolic CHF. Michael presented to ER after his right leg gave out at home while he kind of twisted and he just went down on his right hip and required EMS to help him get up. He has h/o gait imbalance and repeated falls. Imaging showed periprosthetic fracture of right hip with surrounding hemorrhage. Evaluated by orthopedics and continued on non surgical management. Hemoglobin stayed relatively stable. Pain has been reasonably well controlled. Has history of repeated hospitalization for cellulitis, volume overload and others. Last hospitalization was in August. Stage IIIB CKD with b/l cr 1.3-1.5 most likely secondary to microvascular disease with h/o HTN, DM, hypercholesterolemia, diastolic CHF and obesity. Has history of BPH with nocturia but no history of acute urinary retention. on admission creatinine was 1.5 which stayed at relatively stable. urinalysis was positive for 2+proteinuria and 2+ hematuria with prior urinalysis negative, unclear whether it was a sample after urinary catheter was placed. No bacteriuria. Had some hyaline casts but no muddy brown cast. Blood pressure has been somewhat variable but no significant hypotension since admission. Has been voiding normally. He was on Lasix 80 mg at home which was on hold since admission and he receive some IV fluid yesterday as he had mild hypercalcemia andthere was concern for volume depletion. Lasix was resumed this morning by Cardiology. Has longstanding h/o HTN blood pressure generally well controlled, on metoprolol tartrate 25 mg BID, has not been on DONNA-inhibitor or ARB. He does try to follow restricted sodium diet. Complications of his hypertension include atherosclerotic CAD s/p CABG years ago. h/o A fib, had ablation in the past, on Xarelto, 15 mg daily. Has history of CHF with diastolic dysfunction with moderate concentric LVH on last echo, has been on Lasix 80 mg daily and spironolactone 25 mg in the morning and 12.5 mg at bedtime. Has h/o PVD particularly involving his right leg. Has type 2 [id number] diabetes mellitus. He does try to minimize his dietary carbohydrates although he has a difficult time doing so. He is not taking any oral hypoglycemics or injectable diabetic medications. On allopurinol 300 mg daily for h/o gout. No h/o renal stones related to hyperuricemia. h/o chronic respiratory insufficiency and COPD related to smoking. Also has a h/o a complex sleep apnea syndrome.Complicating his COPD is cor pulmonale. He also has a history of a monoclonal gammopathy of unknown significance. There is no evidence of a transitioning into a more malignant syndrome or renal involvement. Overall his pain in hip fracture is manageable. Appetite has been fair. Denies any significant shortness of breath while sitting up but reports difficulty lying flat. Allergies Allergy/AdvReac Type Severity Reaction Status Date / Time No Known Drug Allergies Allergy Unknown Verified 09/28/20 17:54 Home Medications Medication Instructions Recorded Confirmed Type aspirin 81 mg tablet,delayed 81 mg PO QAM #0 11/04/16 09/28/20 History release ipratropium 0.5 mg-albuterol 3 mg 3 ml INHALATION Q4H PRN #0 inh 11/04/16 09/28/20 History (2.5 mg base)/3 mL nebulization soln albuterol sulfate 2.5 mg INHALATION BID #0 dose 01/16/17 09/28/20 History ferrous sulfate 325 mg (65 mg 325 mg PO QAM #0 03/21/17 09/28/20 History iron) tablet cholecalciferol (vitamin D3) 25 2,000 unit PO QAM #60 tab 02/19/18 09/28/20 Rx mcg (1,000 unit) tablet (Vitamin D3) vitamin B complex 1 tab PO QAM 10/18/18 09/28/20 History travoprost 0.004 % eye drops 1 drp OPB HS 09/20/19 09/28/20 History omega 1-mgq-fhz-fish oil 1,000 mg 1 cap PO QAM 11/26/19 09/28/20 History (120 mg-180 mg) capsule (Fish Oil) simvastatin 10 mg tablet 10 mg PO HS 11/26/19 09/28/20 History fluticasone 500 mcg-salmeterol 50 1 inh INH BID #60 ea 01/10/20 09/28/20 Rx mcg/dose blistr powdr for inhalation (Advair Diskus) furosemide 40 mg tablet 80 mg PO BID tab 01/13/20 09/28/20 History nitroglycerin 0.4 mg sublingual 0.4 mg SUBLINGUAL PRN PRN #15 tab 06/23/20 09/28/20 Rx tablet (Nitrostat) allopurinol 300 mg tablet 300 mg PO QAM #30 tab 06/30/20 09/28/20 Rx fluticasone propionate 50 2 spray INTRANASAL QAM #18.2 ml 06/30/20 09/28/20 Rx mcg/actuation nasal spray,suspension (Flonase Allergy Relief) ascorbic acid (vitamin C) 1,000 mg 1 g PO QAM 08/21/20 09/28/20 History tablet (Vitamin C) gabapentin 100 mg capsule 100 - 300 mg PO HS 08/21/20 09/28/20 History metoprolol tartrate 25 mg tablet 12.5 - 25 mg PO DIRECTED 08/21/20 09/28/20 History zinc 50 mg tablet 50 mg PO QAM 08/21/20 09/28/20 History pantoprazole 40 mg tablet,delayed 40 mg PO DAILYBB 08/28/20 09/28/20 History release (Protonix) spironolactone 25 mg tablet 12.5 - 25 mg PO BID 08/28/20 09/28/20 History azelastine 205.5 mcg (0.15 %) 1 spray INTNAS BID #30 ml 09/10/20 09/28/20 Rx nasal spray rivaroxaban 15 mg tablet (Xarelto) 15 mg PO HS tab 09/17/20 09/28/20 History acetaminophen 325 mg tablet 650 mg PO QID PRN 09/28/20 09/28/20 History (Tylenol) escitalopram oxalate 5 mg tablet 5 mg PO QDD 09/28/20 09/28/20 History (Lexapro) Patient History Medical History (Updated 10/01/20 @ 12:12 by Irina Zamudio MD) Acquired deviated nasal septum Afib Clinton's palsy CAD (coronary artery disease) Chronic acquired lymphedema Chronic diastolic (congestive) heart failure Chronic hypoxemic respiratory failure Chronic renal insufficiency CKD (chronic kidney disease), stage III Complex sleep apnea syndrome COPD (chronic obstructive pulmonary disease) Cor pulmonale Coronary artery disease Depression DM II (diabetes mellitus, type II), controlled Foot drop, right GERD (gastroesophageal reflux disease) Gout History of heart attack Hx of fracture of pelvis Hyperlipidemia Hypertension Monoclonal gammopathy of unknown significance Neuropathy SANDOR (obstructive sleep apnea) nasal CPAP Pneumonia Stage 3b chronic kidney disease Surgical History History of cataract surgery History of coronary artery stent placement (1999) PCI L circumflex History of coronary artery stent placement (2000) PCI of LAD History of dental surgery History of right hip replacement (2016) History of tonsillectomy Hx of CABG (2011) triple vessel, 2011 S/P AV gerald ablation (04/12/17) S/P ORIF (open reduction internal fixation) fracture (2018) R femur Status cardiac pacemaker (04/12/17) biventricular pacemaker Family History Brother Coronary heart disease Brother Colorectal cancer Other Family history non-contributory Social History Smoking Status: Former smoker Years Smoked: 30; Second Hand Exposure: No; Hx Alcohol Use: No Hx Substance Use: No Preferred Language: Trinidadian Communication Ability: Effective Thermoplastic Technician Required: No Beliefs That Will Affect Care: None marital status: marital status details: 2 daughters Current Living Situation: Spouse Current Living Situation Comment: Lives with /home nursing current occupational status: 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 Physical Exam Constitutional: WD/WN, vitals as above well developed and well nourished; no acute distress Eyes: PERRL, conjunctivae normal, anicteric sclerae ENMT: external ear and nose normal, oropharynx normal Ears: no hearing impairment Neck: trachea midline Respiratory: no cough Auscultation: + crackles; no wheezes Cardiovascular: RRR, no murmur, no edema Gastrointestinal (Abdomen): normal bowel sounds, soft, nontender, no hepatosplenomegaly Percussion/Palpation: abdomen nontender, no guarding and abdomen not rigid Musculoskeletal: Extremities: extremities normal to inspection Skin: no rashes, warm and dry Neurologic: no focal motor deficits and not confused Psychiatric: A+Ox3, euthymic affect Results & Data ([facility]) Vital Signs (Past 12 Hours) Vital Signs Temp Pulse Pulse Resp BP Pulse Ox 10/01/20 11:57 37.0 C 89 20 140/72 95 10/01/20 07:26 36.7 C 70 24 124/86 96 10/01/20 07:00 69 16 94 PG Care Time/CCT Total # of Minutes Spent Total Time Spent with Patient: Total time spent is greater than 50% in coordina tion of care (as documented) at patient's floor/unit and/or counseling patient: Coding Level of Care Code 85106 Initial Inpt Care Lvl 3 Diagnoses Stage 3b chronic kidney disease N18.32 Chronic diastolic (congestive) heart failure I50.32 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 M97.01XA Encounter type: initial encounter Laterality: right (1) 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 Encounter type: initial encounter Laterality: right Qualified Code(s): M97.01XA - Periprosthetic fracture around internal prosthetic right hip joint, initial encounter
--- NOTE | 2020-10-01 15:17 | Cardiology Progress Note ---
Date of Service October 01, 2020 Assessment & Plan (1) Fall from standing: (2) CAD (coronary artery disease): (3) Chronic diastolic (congestive) heart failure: (4) Chronic atrial fibrillation: Plan: Nephrology input noted and appreciated. Ms Nayak had reached out to patient's spouse and determined that his most recent outpatient furosemide dose had been 80 mg twice daily, along with spironolactone 25 mg daily in the morning, 12.5 mg in the afternoon. IV fluids have been discontinued and he is back on his prior to hospital oral diuretic regimen. He does have a history of chronic persistent underlying atrial fibrillation. His outpatient treatment Xarelto, 50 mg daily, had been on hold pending potential need for operative intervention. CT of the abdomen pelvis revealed nondisplaced periprosthetic fracture of the right proximal femur with hemorrhage surrounding the fracture as well as intramuscular hemorrhage in the right iliac us. Agree with plan as proposed by the hospitalist service to hold systemic anticoagulation for now due to the hemorrhage and utilize DVT prophylaxis dose Lovenox pending transition back to direct oral anticoagulant agent such as Xarelto or Eliquis. They could be reasonable to proceed with Eliquis 2.5 mg twice daily as he is over 78 years old, and his creatinine has often times hovered right around 1.5 or more even though it is less 1.5 today, especially given recent bleeding concerns. Admission and Anticipated Discharge Date Admission Date: September 28, 2020 Subjective Patient seen in follow-up. No complaints. Right hip pain relatively well controlled. Physical Exam Physical Exam: Temp Pulse Resp BP Pulse Ox 36.7 C 69 18 150/71 H 93 09/29/20 07:48 09/29/20 07:48 09/29/20 07:48 09/29/20 07:48 09/29/20 07:48 Constitutional: no acute distress Respiratory: normal respiratory effort, lungs clear to auscultation Cardiovascular: RRR, no murmur, no edema Gastrointestinal (Abdomen): normal bowel sounds, soft, nontender, no hepatosplenomegaly Neurologic: PERRL, EOMI, accommodation nl, no face palsy, no dysarthria Results & Data ([facility]) Vital Signs (Past 12 Hours) Vital Signs Temp Pulse Pulse Resp BP BP Pulse Ox 10/01/20 15:00 36.9 C 74 20 158/78 H 95 10/01/20 14:31 70 16 95 10/01/20 11:57 37.0 C 89 20 140/72 95 10/01/20 07:26 36.7 C 70 24 124/86 96 10/01/20 07:00 69 16 94
[2020-10-01] MEDS: ESCITALOPRAM OXALATE 10 MG TAB PO SCH (15:58)
[2020-10-01] MEDS: FUROSEMIDE 80 MG TAB PO SCH (15:58)
[2020-10-01] MEDS ORDERED: SPIRONOLACTONE 12.5 MG TAB PO SCH (16:30)
[2020-10-01] MEDS: GABAPENTIN 100 MG CAP PO SCH (21:14)
[2020-10-01] MEDS: SIMVASTATIN 10 MG TAB PO SCH (21:14)
[2020-10-01] MEDS: TRAVOPROST Z 0.004% OPH SOLN 2.5 ML BTL OPB SCH (21:15)
[2020-10-02] MEDS: PANTOprazole 40 MG TAB PO SCH (06:00)
[2020-10-02] MEDS: ALBUTEROL 0.083% NEBU SOLN 3 ML VIAL NEB SCH (06:19)
[2020-10-02 08:04] LABS: Hematocrit (blood only) 25.8 % (42-52); Hemoglobin 8.5 g/dL (14.0-18.0); Mean Corpuscular Hgb Conc 32.9 g/dL (32-36); Mean Platelet Volume 10.2 fL (7.4-10.4); Platelet Count 257 K/uL (130-400); RDW Coefficient of Variation 15.8 % (11.5-14.5); Red Blood Count 2.66 M/uL (4.7-6.1)
--- NOTE | 2020-10-02 08:29 | Hospitalist Progress Note ---
Date of Service October 02, 2020 Assessment & Plan (1) 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: Plan: CT on admission showed nondisplaced periprosthetic fracture of the right proximal femur along with a hemorrhage around the fracture. Orthopedics consulted -- weight bearing as tolerated, repeat x-ray in 3 weeks with follow up in office PT/OT evals -- rehab at d/c . patient prefers [facility] Vit D wnl (low normal) however hypercalcemia 10.2 with low albumin on 09/30. Given IVF and lasix. Ca now normal -- discontinued vit d supplementation. Nephrology with recs to resume usual lasix, check repeat urine to eval for protein once griffith removed Pain controlled with ordered medications +BM last evening (dulcolax given, miralax and colace scheduled) and abd discomfort improved -- continue regimen while on pain medications. Temp 38.1C last night but patient denied feeling feverish CXR on admission without evidence of infection Urine checked -- appeared dirty but no protein. Urine cx gram negative bacilli but only 20,000CFU. Given fall and age and appearance of urine on admission, low threshold to start abx --> MONITOR ASA resumed by cardiology hgb stable 8.2 but did get IVF yesterday through today for hypercalcemia/dehydration (improved today and discontinued) Discussed with coag clinic --> plans to utilize Lovenox and then once stable can transition to Eliquis BID instead of previous Xarelto-- this can be done at rehab. Monitor labs in AM/volume status but suspect if bed available at [facility] could consider discharge tomorrow (2) CAD (coronary artery disease): Plan: Stents in 2009 and CABG in 2011. Resumed ASA 81mg daily Lovenox as above (given dose Heparin SQ last evening ) with plans to transition to Eliquis Continue low-dose beta-gonsalo & statin (3) Chronic diastolic (congestive) heart failure: Plan: Follows with [facility] (only temporarily, but sees Dr Parson as outpatient) Volume up today --> resumed spironolactone but changed to 25 + 12.5mg as taking at home --> reviewed lasix 80mg BID with Dr Nguyen and ok to continue Discontinued IVF as given for above dehydration/ATN/hypercalcemia Weights, I&Os Monitor volume status (4) CKD (chronic kidney disease), stage III: Plan: Cr 1.54 on admit Diuretics held as above and fluids provided and Cr improved to 1.26 however volume up as stated above Nephrology consulted for ATN/hypercalcemia Vit D normal and supplementation stopped. PTH pending IVF discontinued and resumed lasix per recs Follow repeat urine after griffith removed Continue to monitor BMP (5) Afib: Plan: Permanent EKG on admission showed ventricularly-paced rhythm. He has a BiV pacemaker. Plans for Lovenox --> Eliquis as above once stable Follow up Equals6 outpatient Continue BB Rate controleld (6) Hypertension: Plan: BP presently 140/72 Continue BB, lasix, spironolactone as above Continue to monitor (7) COPD (chronic obstructive pulmonary disease): Plan: No shortness of breath or indication of exacerbation however volume up and diuretics resumed Continue Advair BID -- he also utilizes albuterol nebs BID and this was changed to scheduled slight wheezing posterior lung quarles today and pt asked for additional neb-- to be provided DuoNebs PRN Also with SANDOR -- CPAP at home 9cm H20, ordered 95% on RA (8) DM II (diabetes mellitus, type II), controlled: Plan: A1cs all below 6.5%, but high of 6.4%. BSGs acceptable (9) Depression: Plan: No indication of SI/HI on my interview. Continue SSRI (10) DVT prophylaxis: Plan: SCDs Lovenox --> Eliquis as above Admission and Anticipated Discharge Date Admission Date: September 28, 2020 Results & Data Results & Data ([facility]) Vital Signs (Past 12 Hours) Vital Signs Temp Pulse Pulse Resp BP Pulse Ox 10/02/20 07:43 37.4 C 68 20 142/84 H 93 10/02/20 06:20 70 20 96 10/01/20 23:20 37.8 C H 69 20 132/68 93 10/01/20 21:12 74 169/75 H Laboratory Results 10/02/20 10/02/20 10/01/20 Range/Units 07:04 07:04 07:40 WBC 6.40 (4.8-10.8) K/uL RBC 2.66 L (4.7-6.1) M/uL Hgb 8.5 L (14.0-18.0) g/dL Hct 25.8 L (42-52) % MCV 97.0 (80-100) fL MCH 32.0 (25-34) pg MCHC 32.9 (32-36) g/dL RDW Std Deviation 55.0 H (36.4-46.3) fL RDW Coeff of Inez 15.8 H (11.5-14.5) % Plt Count 257 (130-400) K/uL MPV 10.2 (7.4-10.4) fL Sodium 130 L (136-145) mmol/L Potassium 3.7 (3.5-5.1) mmol/L Chloride 97 L (98-107) mmol/L Carbon Dioxide 23 (21-32) mmol/L Anion Gap 10.0 (3-11) BUN 31 H (7-18) mg/dl Creatinine 1.29 (0.6-1.4) mg/dl Est Cr Clr Drug Dosing 52.2 ml/min Est GFR ( Amer) 59.4 ml/min Est GFR (Non-Af Amer) 51.3 ml/min BUN/Creatinine Ratio 24.2 H (10-20) Glucose 98 (70-99) mg/dl Calcium 9.3 (8.5-10.1) mg/dl Phosphorus 3.3 (2.5-4.9) mg/dl Total Bilirubin (0.2-1) mg/dl AST (15-37) U/L ALT (12-78) U/L Alkaline Phosphatase (45-117) U/L Total Protein (6.4-8.2) gm/dl Albumin 2.0 L (3.4-5.0) gm/dl Globulin (2.5-4.0) gm/dl Albumin/Globulin Ratio (0.9-2) Procalcitonin 0.10 (0-0.5) ng/ml PTH Intact (18.4-80.1) pg/ml 10/01/20 10/01/20 Range/Units 07:40 07:40 WBC (4.8-10.8) K/uL RBC (4.7-6.1) M/uL Hgb (14.0-18.0) g/dL Hct (42-52) % MCV (80-100) fL MCH (25-34) pg MCHC (32-36) g/dL RDW Std Deviation (36.4-46.3) fL RDW Coeff of Inez (11.5-14.5) % Plt Count (130-400) K/uL MPV (7.4-10.4) fL Sodium 131 L (136-145) mmol/L Potassium 4.1 (3.5-5.1) mmol/L Chloride 99 (98-107) mmol/L Carbon Dioxide 24 (21-32) mmol/L Anion Gap 9.0 (3-11) BUN 31 H (7-18) mg/dl Creatinine 1.26 (0.6-1.4) mg/dl Est Cr Clr Drug Dosing 53.4 ml/min Est GFR ( Amer) 61.2 ml/min Est GFR (Non-Af Amer) 52.8 ml/min BUN/Creatinine Ratio 24.3 H (10-20) Glucose 102 H (70-99) mg/dl Calcium 9.2 (8.5-10.1) mg/dl Phosphorus (2.5-4.9) mg/dl Total Bilirubin 1.1 H (0.2-1) mg/dl AST 20 (15-37) U/L ALT 24 (12-78) U/L Alkaline Phosphatase 74 (45-117) U/L Total Protein 8.9 H (6.4-8.2) gm/dl Albumin 2.1 L (3.4-5.0) gm/dl Globulin 6.8 H (2.5-4.0) gm/dl Albumin/Globulin Ratio 0.3 L (0.9-2) Procalcitonin (0-0.5) ng/ml PTH Intact 22.1 (18.4-80.1) pg/ml PG Care Time/CCT Total # of Minutes Spent Total Time Spent with Patient: Total time spent is greater than 50% in coordination of care (as documented) at patient's floor/unit and/or counseling patient: Coding Diagnoses 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 M97.01XA Encounter type: initial encounter Laterality: right CAD (coronary artery disease) I25.10 Chronic diastolic (congestive) heart failure I50.32 CKD (chronic kidney disease), stage III N18.30 Afib I48.91 Atrial fibrillation type: unspecified Hypertension I10 Hypertension type: essential hypertension COPD (chronic obstructive pulmonary disease) J44.9 COPD type: unspecified COPD DM II (diabetes mellitus, type II), controlled E11.9 Diabetes mellitus usp insulin use: without usp use Diabetes mellitus complication status: without complication Depression F32.9 DVT prophylaxis Z29.9 (1) 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 Encounter type: initial encounter Laterality: right Qualified Code(s): M97.01XA - Periprosthetic fracture around internal prosthetic right hip joint, initial encounter (2) Afib Atrial fibrillation type: unspecified Qualified Code(s): I48.91 - Unspecified atrial fibrillation (3) Hypertension Hypertension type: essential hypertension Qualified Code(s): I10 - Essential (primary) hypertension (4) COPD (chronic obstructive pulmonary disease) COPD type: unspecified COPD Qualified Code(s): J44.9 - Chronic obstructive pulmonary disease, unspecified (5) DM II (diabetes mellitus, type II), controlled Diabetes mellitus usp insulin use: without terminal superintendent use Diabetes mellitus complication status: without complication Qualified Code(s): E11.9 - Type 2 diabetes mellitus without complications
[2020-10-02 08:33] LABS: BUN Creatinine Ratio 24.2 (10-20); Calcium 9.3 mg/dl (8.5-10.1); Creatinine Clr Calc Pharmacy 52.2 ml/min; Est GFR (African American) 59.4 ml/min; Est GFR (Non-African American) 51.3 ml/min; Potassium 3.7 mmol/L (3.5-5.1)
[2020-10-02 08:34] LABS: Phosphorus 3.3 mg/dl (2.5-4.9)
[2020-10-02] MEDS: FLUTICASONE/VILANTEROL 100/25MCG 14 PUFFS/INHALER INH SCH (08:59)
[2020-10-02] MEDS: FLUTICASONE PROPIONATE NA SPR 16 GM BTL NAE SCH (08:59)
[2020-10-02] MEDS: ASPIRIN 81 MG ECTAB PO SCH (09:00)
[2020-10-02] MEDS: FUROSEMIDE 80 MG TAB PO SCH (09:00)
[2020-10-02] MEDS ORDERED: SPIRONOLACTONE 25 MG TAB PO SCH (09:00)
[2020-10-02] MEDS: allopurinoL 300 MG TAB PO SCH (09:00)
[2020-10-02] MEDS ORDERED: ENOXAPARIN INJ 40 MG/0.4 ML SYR SQ SCH (09:00)
[2020-10-02] MEDS: METOPROLOL TARTRATE 25 MG TAB PO SCH (09:00)
[2020-10-02] MEDS: POLYETHYLENE (MIRALAX) 17 GM PACK PO SCH (09:01)
[2020-10-02] MEDS: DOCUSATE SODIUM 100 MG CAP PO SCH (09:01)
--- NOTE | 2020-10-02 10:44 | Nephrology Progress Note ---
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 Urinalysis showed 2+ proteinuria and hematuria but no pyuria or bacteriuria. voiding normally. Blood pressure has been acceptable. Multiple electrolyte abnormality including a mild hypercalcemia and hyponatremia both seem to have improved. vitamin-D was normal, PTH pending. Seems volume overloaded on exam. Renal function stable electrolyte acceptable. Blood pressure volume status acceptable. -- continue on Lasix 80 mg daily. -- Unclear etiology for proteinuria hematuria, could be Curtis sample, once Curtis catheter removed, would recommend repeating urinalysis. -- keep off of all calcium and vitamin-D supplement for now will sign off, please contact if any further assistance needed.. Admission and Anticipated Discharge Date Admission Date: September 28, 2020 Subjective Michael was seen this morning, had some nausea after breakfast this morning but no vomiting, Symptom currently resolved. No shortness of breath or chest pain. Blood pressure well controlled. Renal function electrolyte acceptable. Review of Systems Review of Systems: detailed review of system was unremarkable except mentioned in HPI. Physical Exam Constitutional: well developed and well nourished; no acute distress Respiratory: normal respiratory effort, lungs clear to auscultation Cardiovascular: RRR, no murmur, no edema Neurologic: no focal motor deficits and not confused Psychiatric: A+Ox3, euthymic affect Results & Data ([facility]) Vital Signs (Past 12 Hours) Vital Signs Temp Pulse Pulse Resp BP Pulse Ox 10/02/20 07:43 37.4 C 68 20 142/84 H 93 10/02/20 06:20 70 20 96 10/01/20 23:20 37.8 C H 69 20 132/68 93 PG Care Time/CCT Total # of Minutes Spent Total Time Spent with Patient: Total time spent is greater than 50% in coordination of care (as documented) at patient's floor/unit and/or counseling patient: Coding Level of Care Code 93164 Subseq Hosp Care Lvl 2 Diagnoses Stage 3b chronic kidney disease N18.32 Chronic diastolic (congestive) heart failure I50.32 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 M97.01XA Encounter type: initial encounter Laterality: right (1) 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 Encounter type: initial encounter Laterality: right Qualified Code(s): M97.01XA - Periprosthetic fracture around internal prosthetic right hip joint, initial encounter
--- NOTE | 2020-10-02 10:47 | Discharge Summary ---
Date of Service October 02, 2020 Admission HPI Per Admitting Provider 80yo M w/ hx of CAD, CHF, and recent admission for cellulitis who presents with fall and periprosthetic fracture to the right femur. He reports that he was in a good state of health at home. His right leg had been giving out some at home. He reports that today, his leg gave out while he kind of twisted, and he just went down on his right hip. Unfortunately, he had immediate onset of pain and required EMS to help him get up. At the present time, he is more comfortable in bed after pain medication administration. He denies that he hit his head or had any loss of consciousness. He denies any prodrome such as lightheadedness, chest pain, shortness of breath, dizziness, or other symptoms prior to his fall. Admission Exam Per Admitting Provider Constitutional: WD/WN, vitals as above Eyes: EOM intact bilaterally; no conjunctival abnormality ENMT: external ear and nose normal, oropharynx normal Neck: trachea midline, no thyromegaly normal visual inspection Respiratory: normal respiratory effort, lungs clear to auscultation no respiratory distress Cardiovascular: RRR, no murmur, no edema Gastrointestinal (Abdomen): Inspection/Auscultation: abdomen normal to inspection; abdomen not distended Musculoskeletal: no cyanosis or clubbing, extremities motor strength 5/5 Skin: no rashes, warm and dry Neurologic: moves all extremities and awake Psychiatric: Orientation: alert, oriented to person and cooperative Principal Diagnosis Periprosthetic Hip Fracture with Hemorrhage, UTI Discharge Exam WD/WN, NAD, Alert and oriented x 3, easily reoriented as sometimes confused when first woken up from sleep, cooperative and comfortable HEENT: head normocephalic, atraumatic, mmm, trachea midline without deviation Resp: no tachypnea, no cough, posterior upper lung quarles with expiratory wheezing, no wheezing anterior lung quarles, bibasilar crackles. 95% on Room Air CV: irregularly irregular, no murmur appreciated, 1+ pedal edema, R thigh edema, calves non-tender to palpation, pulses palpable, NVI. pain with log roll MSK: strength equal plantar/dorsiflexion, R hip tender to palpation anterior thigh, greater trochanter, no hematoma appreciated but is edematous, pain with log roll, minimal ROM R knee with crepitus, GI: +BS throughout, +distended, non-tender on exam, no guarding or rigidity : griffith draining yellow urine --> removed and has voided since Skin: warm, dry Discharge Data Allergies Allergy/AdvReac Type Severity Reaction Status Date / Time No Known Drug Allergies Allergy Unknown Verified 09/28/20 17:54 Consultations 09/28/20 18:26 ED Decision to Admit Stat 09/28/20 20:13 Consult Cardiology Routine Consult Orthopedic Surgery Routine 09/30/20 15:15 Consult Nephrology Routine Ordered Studies 09/28/20 16:13 CT head/brain wo con Stat 09/28/20 16:56 CT abd pelvis wo con Stat 09/30/20 13:02 US gallbladder Routine Hospital Course (1) 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: CT on admission showed nondisplaced periprosthetic fracture of the right proximal femur along with a hemorrhage around the fracture. Orthopedics consulted -- weight bearing as tolerated, repeat x-ray in 3 weeks with follow up in office PT/OT evals -- rehab at d/c . patient prefers [facility] Vit D wnl (low normal) however hypercalcemia 10.2 with low albumin on 09/30. Given IVF and lasix. Ca now normal -- discontinued vit d supplementation. Nephrology with recs to resume usual lasix, check repeat urine to eval for protein once griffith removed Pain controlled with ordered medications +BM last evening (dulcolax given, miralax and colace scheduled) and abd discomfort improved -- continue regimen while on pain medications. Temp 38.1C CXR on admission without evidence of infection Urine checked -- appeared dirty but no protein. Urine cx gram negative bacilli but only 20,000CFU Proteus --> sent on cefdinir to complete at rehab given fall/appearance of urine on admission hgb stable 8.5 on repeat after IVF d/c --> discussed with coag clinic and utilized Lovenox while inpatient to ensure hgb stable --> transitioned to eliquis 2.5mg PO BID at rehab. TO have repeat CBC, BMP at rehab this week to ensure blood counts/kidney function stable [facility] at d/ for rehab (2) CAD (coronary artery disease): Stents in 2009 and CABG in 2011. Resumed ASA 81mg daily Lovenox as above (given dose Heparin SQ last evening ) with transition to Eliquis at d/c Continued low-dose beta-gonsalo & statin (3) Chronic diastolic (congestive) heart failure: Volume up after IVF resuscitation and resumed spironolactone 25 + 12.5mg and lasix 80mg PO BID To follow up with [facility] AT D/C -- FOLLOWS WITH DR PARSON (4) CKD (chronic kidney disease), stage III: Cr 1.54 on admit Diuretics held on admission while on IVF, but resumed given volume overload Hypercalcemia x 1, Vit D normal. PTH wnl Nephrology consulted --> STOPPED ALL VIT D/CALCIUM SUPPLEMENTATION AND AVOID AT D/C resolved on repeat, lasix resumed and continued as above follow up outpatient /repeat urine to ensure proteinuria resolved, could have been from infection/griffith placed during admission (5) Afib: Permanent, rate controlled EKG on admission showed ventricularly-paced rhythm. He has a BiV pacemaker. Lovenox --> Eliquis as above Follow up [employer] [facility] outpatient Continue BB (6) Hypertension: BP controlled, elevated in setting of pain during stay (improved prior to d/c) Continued BB, lasix, spironolactone (7) COPD (chronic obstructive pulmonary disease): No shortness of breath or indication of exacerbation however volume up and diuretics resumed as above after being initially held Continue Advair BID -- he also utilizes albuterol nebs BID and this was changed to scheduled DuoNebs PRN Also with SANDOR -- CPAP at home 9cm H20, ordered 95% on RA (8) DM II (diabetes mellitus, type II), controlled: A1cs all below 6.5%, but high of 6.4%. BSGs acceptable (9) Depression: No indication of SI/HI on my interview. Continued SSRI (10) DVT prophylaxis: SCDs Lovenox --> Eliquis as above Total Time Total Time Spent Total Time Spent (In Minutes): 65 Discharge Plan Discharge Items Patient Disposition: Transfer Detention Fac Reason For Visit: PERIPROSTHETIC FRACTURE Discharge Diagnosis: Hip Fracture, UTI Goals: You have been hospitalized for an urgent problem which required surgery. During your stay at [facility], we have made an effort to correct the problem that brought you to the hospital while keeping you as comfortable as possible. Surgery and medications were used to bring your condition under control and your discharge instructions will include directions for any medications you should take after leaving the hospital. Please make sure to follow the advice of your surgeon regarding follow up with the surgeon and with your primary care provider. Activity: As commented below Activity Comment: weight bearing as tolerated, advance with therapy Non-emergency contact: Primary Care Provider, Surgeon and [employer] Call non-emergency contact if: you have any medication questions, your symptoms worsen, your pain is not controlled and you have a fever Follow-up/Referrals: Sharmaine Munoz DO [Primary Care Provider] - 10/07/20 8:15 am Jordan Parson MD [Physician] - 10/30/20 9:30 am (You will be seeing Sheila OVALLE) Dennis Gan DO [Physician] - 10/20/20 11:20 am () Diet: Carb Consistent or DM2 and Heart Healthy Addtl Attending Provider Instructions: You have been hospitalized for a fall and hip fracture. Imaging was reviewed by Dr. Gan, and felt the fracture will heal on it's own and you can be weight bearing as tolerated. Arrangements have been set up for rehab at discharge. You will need to have follow up with Dr Gan for repeat imaging in the next 2-3 weeks to ensure healing. Given the bleeding, your Xarelto was held, and you were placed on Lovenox SQ while in the hospital as this is easier to reverse in case your hemoglobin continued to drop. It has remained stable and you are being transitioned to ELIQUIS 2.5MG BY MOUTH TWICE DAILY INSTEAD OF XARELTO. You got a dose of Lovenox SQ TODAY, and are to begin the Eliquis TOMORROW, 10/03 as 2.5mg PO BID. This was confirmed with cardiology and you should have follow up with Dr. Parson as well as their CHF program for further monitoring of weight and diuretics. You should hold your vitamin E for the next week as well and can resume if blood counts remain stable. You should continue the spironolactone as typically taking, and lasix 80mg by mouth twice daily. You should have repeat CBC and BMP next week to monitor your blood counts and kidney functions. If weight continues to decline and kidney function becomes elevated, they may want to back you down to lasix 80mg once daily if this is able to maintain your fluid balance. You had a griffith catheter placed and found to have evidence of bacteria in your urine. You have been started on cefdinir and will continue this as 300mg by mouth twice daily for 10 days given this could be due to insertion of griffith, however you did report some symptoms before this as well. You should have a repeat urine tested to ensure no further protein in your urine, and if continues, would recommend following up with Nephrology in the future. They were consulted while in the hospital as your calcium was elevated, and it was determined that you should STOP VITAMIN D supplementation at discharge to prevent this occurring in the future. Please follow up with PCP and Orthopedics in the next 2 weeks to monitor your progress. Please return to the emergency department with any fevers, chest pain, shortness of breath, abdominal pain, or for any other symptoms that are concerning for you. It has been a pleasure being a part of the medical team providing for you while you have been in the hospital. Take care! 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 Follow-up with Dr. Gan in 3 weeks for repeat x-rays to make sure there has been no displacement of the fracture. Office phone number is [phone]. Please call to make the appointment. Pending Studies at Discharge: Yes Studies:: blood cultures -- no growth to date Stand-Alone Forms: My [facility] Skilled Items Patient informed of condition?: Yes DNR: No Discharge Level of Care: Skilled Communicable Disease: No Discharge Prognosis: Stable Lines: None Urinary Catheter: No Medications and DC Order Prescriptions: New cefdinir 300 mg Capsule 300 mg PO BID Qty: 19 RF: 0 oxycodone-acetaminophen [Percocet] 5-325 mg Tablet 1 tab PO Q4H PRN (Reason: pain) Qty: 0 RF: 0 docusate sodium 100 mg Capsule 100 mg PO BID Qty: 20 RF: 0 polyethylene glycol 3350 [Miralax] 17 gram Powder In Packet 17 g PO DAILY PRN (Reason: constipation) Qty: 14 RF: 0 Eliquis 2.5 mg tablet 2.5 mg PO BID Qty: 60 RF: 1 Continued ipratropium-albuterol 0.5 mg-3 mg(2.5 mg base)/3 mL Solution For Nebulization 3 ml INHALATION Q4H PRN (Reason: Shortness Of Breath) Qty: 0 RF: 0 aspirin 81 mg Tablet,Delayed Release (Dr/Ec) 81 mg PO QAM Qty: 0 RF: 0 albuterol sulfate 2.5 mg /3 mL (0.083 %) Solution For Nebulization 2.5 mg INHALATION BID Qty: 0 RF: 0 ferrous sulfate 325 mg (65 mg iron) Tablet 325 mg PO QAM Qty: 0 RF: 0 fluticasone propion-salmeterol [Advair Diskus] 500-50 mcg/dose blister with device 1 inh INH BID Qty: 60 RF: 11 nitroglycerin [Nitrostat] 0.4 mg tablet, sublingual 0.4 mg Sublingual PRN PRN (Reason: chest pain) Qty: 15 RF: 0 azelastine 205.5 mcg (0.15 %) spray,non-aerosol 1 spray INTNAS BID Qty: 30 RF: 5 travoprost 0.004 % drops 1 drp OPB HS RF: 0 fluticasone propionate [Flonase Allergy Relief] 50 mcg/actuation spray, suspension 2 spray INTRANASAL QAM Qty: 18.2 RF: 5 allopurinol 300 mg tablet 300 mg PO QAM Qty: 30 RF: 5 furosemide 40 mg tablet 80 mg PO BID RF: 0 vitamin B complex tablet 1 tab PO QAM RF: 0 simvastatin 10 mg tablet 10 mg PO HS RF: 0 pantoprazole [Protonix] 40 mg tablet,delayed release (DR/EC) 40 mg PO DAILYBB RF: 0 spironolactone 25 mg tablet 12.5 - 25 mg PO BID RF: 0 ascorbic acid (vitamin C) [Vitamin C] 1,000 mg Tablet 1 g PO QAM RF: 0 zinc 50 mg Tablet 50 mg PO QAM RF: 0 gabapentin 100 mg capsule 100 - 300 mg PO HS RF: 0 metoprolol tartrate 25 mg tablet 12.5 - 25 mg PO DIRECTED RF: 0 escitalopram oxalate [Lexapro] 5 mg tablet 5 mg PO QDD RF: 0 acetaminophen [Tylenol] 325 mg Tablet 650 mg PO QID PRN (Reason: Pain) RF: 0 Discontinued cholecalciferol (vitamin D3) [Vitamin D3] 1,000 unit Tablet 2,000 unit PO QAM Qty: 60 RF: 0 omega [id number]-fish oil [Fish Oil] 1,000 mg (120 mg-180 mg) capsule 1 cap PO QAM RF: 0 Xarelto 15 mg tablet 15 mg PO HS RF: 0 Discharge Orders: Discharge Order (Routine); Ordered 10/02/20 Ordered By: Aftab King Admission Data Admit Date/Time: 09/28/20 19:04 Attending Provider: Aftab King Admit Provider: Freedom Dolan Primary Care Provider: Sharmaine Munoz Other Providers: Freedom Dolan ; Dennis Gan ; Rodrigo Nguyen ; Shanthi Benavides ; Huseyin Brenner Other Interventions: Discharge Summary Assessment (RN) Last Done: 10/02/20 17:55 Coding Level of Care Code D/C DAY MANAGEMENT >30 MINS Diagnoses 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 M97.01XA Encounter type: initial encounter Laterality: right CAD (coronary artery disease) I25.10 Chronic diastolic (congestive) heart failure I50.32 CKD (chronic kidney disease), stage III N18.30 Afib I48.91 Atrial fibrillation type: unspecified Hypertension I10 Hypertension type: essential hypertension COPD (chronic obstructive pulmonary disease) J44.9 COPD type: unspecified COPD DM II (diabetes mellitus, type II), controlled E11.9 Diabetes mellitus complication status: without complication Diabetes mellitus terminal operator insulin use: without retirement use Depression F32.9 DVT prophylaxis Z29.9
[2020-10-02] MEDS ORDERED: CEFDINIR 300 MG CAP PO SCH (11:00)
== END 2020-10-02 17:00 | DRG 536 ==
LOC: ED 15:28 → 3N 19:04 → SUATTDRO 19:04 → 3N 20:10 → 3W 09-30 02:49
DX: I50.32 Chronic diastolic (congestive) heart failure; Z68.37 Body mass index [BMI] 37.0-37.9, adult; M97.01XA Periprosthetic fracture around internal prosthetic right hip joint, initial encounter; G47.33 Obstructive sleep apnea (adult) (pediatric); S72.001A Fracture of unspecified part of neck of right femur, initial encounter for closed fracture; Z96.641 Presence of right artificial hip joint; I13.0 Hypertensive heart and chronic kidney disease with heart failure and stage 1 through stage 4 chronic kidney disease, or unspecified chronic kidney disease; E78.5 Hyperlipidemia, unspecified; N39.0 Urinary tract infection, site not specified; I48.91 Unspecified atrial fibrillation; J44.9 Chronic obstructive pulmonary disease, unspecified; Z79.01 Long term (current) use of anticoagulants; E11.22 Type 2 diabetes mellitus with diabetic chronic kidney disease; D62 Acute posthemorrhagic anemia; Z79.82 Long term (current) use of aspirin; I25.10 Atherosclerotic heart disease of native coronary artery without angina pectoris; E66.9 Obesity, unspecified; Z95.5 Presence of coronary angioplasty implant and graft; Z87.891 Personal history of nicotine dependence; N18.32 Chronic kidney disease, stage 3b; Z95.1 Presence of aortocoronary bypass graft; Z95.0 Presence of cardiac pacemaker; W18.30XA Fall on same level, unspecified, initial encounter; S00.01XA Abrasion of scalp, initial encounter; F32.9 Major depressive disorder, single episode, unspecified; Y92.009 Unspecified place in unspecified non-institutional (private) residence as the place of occurrence of the external cause; S51.801A Unspecified open wound of right forearm, initial encounter

== ENCOUNTER 2020-10-12 05:28 | Inpatient (IN) ==
[2020-10-12] MEDS ORDERED: PIPERACILLIN/TAZOBACTAM 4.5 GM/120 ML BAG IV ONE (06:26)
[2020-10-12] MEDS ORDERED: PIPERACILL/TAZOBAC CONSULT ACTIVE PRN ×2 (06:26→10:57)
[2020-10-12 06:30] LABS: Basophils # (auto) 0.01 K/uL (0-0.2); Basophils % (auto) 0.1 %; Eosinophils # (auto) 0.02 K/uL (0-0.5); Eosinophils % (auto) 0.3 %; Hematocrit (blood only) 28.3 % (42-52); Hemoglobin 9.1 g/dL (14.0-18.0); Immature Granulocytes # (auto) 0.01 K/uL (0.00-0.02); Immature Granulocytes % (auto) 0.1 %; Lymphocytes % (auto) 5.2 %; Mean Corpuscular Hgb Conc 32.2 g/dL (32-36); Mean Corpuscular Volume 99.6 fL (80-100); Mean Platelet Volume 10.1 fL (7.4-10.4); Monocytes # (auto) 0.87 K/uL (0.11-0.59); Monocytes % (auto) 11.3 %; Neutrophils # (auto) 6.38 K/uL (1.4-6.5); Platelet Count 354 K/uL (130-400); RDW Coefficient of Variation 16.5 % (11.5-14.5); RDW Standard Deviation 59.5 fL (36.4-46.3); Red Blood Count 2.84 M/uL (4.7-6.1); White Blood Count 7.69 K/uL (4.8-10.8)
--- NOTE | 2020-10-12 06:31 | XRay Report ---
XR chest 1V portable CLINICAL HISTORY: SEPSIS COMPARISON STUDY: Chest radiograph September 28, 2020. FINDINGS: There are median sternotomy wires and mediastinal surgical clips. No pneumothorax or pleura l effusion is present. Dual-lead left subclavian pacemaker is in place. Cardiomegaly is unchanged. Bi basilar opacities have developed. There may be several additional scattered airspace opacities. There is pulmonary vascular congestion without overt pulmonary edema. IMPRESSION: 1. Interval development of bibasilar and scattered right lung opacities. The findings favor an infect ious process. 2. Cardiomegaly with pulmonary vascular congestion. No overt pulmonary edema. ACT 112: Negative or not required by law. Electronically signed by: Sergio Pollack M.D. 10/12/2020 6:29 AM
[2020-10-12 06:53] LABS: Alanine Aminotransferase 41 U/L (12-78); Albumin Level 2.1 gm/dl (3.4-5.0); Aspartate Aminotransferase 28 U/L (15-37); Blood Urea Nitrogen 38 mg/dl (7-18); Carbon Dioxide 30 mmol/L (21-32); Chloride 99 mmol/L (98-107); Est GFR (African American) 58.9 ml/min; Est GFR (Non-African American) 50.8 ml/min; Glucose 126 mg/dl (70-99); Magnesium 2.4 mg/dl (1.8-2.4); Potassium 3.9 mmol/L (3.5-5.1); Sodium 134 mmol/L (136-145)
[2020-10-12 06:56] LABS: Albumin Globulin Ratio 0.3 (0.9-2); Alkaline Phosphatase 120 U/L (45-117); Bilirubin,Total 1.3 mg/dl (0.2-1); Globulin 7.3 gm/dl (2.5-4.0); Total Protein 9.4 gm/dl (6.4-8.2)
--- NOTE | 2020-10-12 07:27 | Emergency Department Note ---
Impression & Plan Pneumonia, Acute exacerbation of chronic obstructive pulmonary disease, Hypoxia Admit to the [facility] ED Provider Note NAME: JOHN ACUÑA AGE: 80 SEX: M ARRIVES VIA: Ambulance INFORMANT: Patient ED PROVIDER(S): Leonor Gamble DO CHIEF COMPLAINT: Cough PLAN: Disposition: Admit to the [facility] Condition: Guarded MEDICAL DECISION MAKING: This is a 80-year-old male patient from [facility] with a history of COPD who presents to the emergency department with a cough and hypoxia. Patient had an O2 saturation for EMS of less than 90%. He was placed on supplemental O2 which brought his saturations up in the 90s. The patient appears disoriented here in the ER and restless. Chest x-ray confirms evidence of right-sided pneumonia. He has a cough productive of yellow phlegm. He was started on IV Zosyn. I discussed the case with the [facility] and they will evaluate for further management. Triage Nursing notes reviewed and agree with them. Additional history obtained from patient's who arrived at the bedside Prior medical records reviewed Vital Signs: reviewed and remarkable for hypoxia Differential diagnosis: COPD exacerbation, CHF, pneumonia, hypercapnic respiratory failure ER treatment provided: IV Zosyn Diagnostics interpreted by me: ECG: Paced rhythm at 70 with no signs of ischemia. There is no ectopic beats. Cardiac Monitoring: Paced rhythm at 72 Laboratory studies: See below Imaging studies: As per my interpretation Chest x-ray: Right-sided pneumonia HPI: 80/M arrives for evaluation of cough and hypoxia. The patient has had a significant wet cough for the past 2 days at [facility]. He has been coughing up yellow phlegm. The staff there thought that he was struggling to breathe today and called EMS. Upon their arrival, they found the O2 saturation to be 88%. ROS: See above HPI for pertinent positives & negatives. A total of 10 systems reviewed and were otherwise negative. PAST MEDICAL HISTORY:See Below PAST SURGICAL HISTORY:See Below FAMILY HISTORY:See Below SOCIAL HISTORY:Resides at [facility] HOME MEDICATIONS:See Below ALLERGIES:See Below VITALS:See Below PHYSICAL EXAMINATION: HEENT: Head - normocephalic and atraumatic. Pupils are equal, round, and reactive to light. Extraocular eye muscles are intact, and sclera are anicteric. Nose - moist nasal mucosa without discharge. Mouth -extremely dry buccal mucosa. Oropharynx is nonerythematous and there is no tonsillar exudate or edema noted. Neck: Supple; no JVD, nuchal rigidity, cervical lymphadenopathy, or auscultated bruits. Heart: Regular rate and rhythm. There is a normal S1 and S2 with no murmurs, clicks, or gallops appreciated. Lungs: Diminished breath sounds at both lung bases with rhonchi throughout Abdomen: Soft, completely nontender, moderately distended, with good bowel sounds. There are no palpable pulsatile masses or hepatosplenomegaly. There is no guarding, rigidity, or rebound noted. Extremities: No evidence of cyanosis, clubbing, or edema. There are easily palpable peripheral pulses. Skin: warm and dry with good turgor and no rashes. ED COURSE: Times/Reassessments: 0550: The patient was evaluated in room A2. A complete history and physical was performed. Laboratory studies were drawn as above. An order was placed for continuous cardiac monitoring. The patient is in a paced rhythm at 72. The patient was hypoxic for EMS and was on supplemental oxygen. The patient wanda ears somewhat agitated and is extremely hard of hearing. He does have a wet cough. Portable chest x-ray shows evidence of a pneumonia. A septic protocol was performed and he was given a dose of IV Zosyn. The patient's has arrived here in the emergency department. I updated her on the patient's condition. The patient does seem a bit more anxious. He was given a dose of IV Ativan which has allowed him to relax. I have personally spent greater than 30 minutes of critical care time in the direct management of this patient. This includes bedside care, interpretation of diagnostic studies, and testing, discussion with consultants, patient, and family members, and other required patient management activities. This 30 minutes is in excess of all separately billable procedures. Leonor Gamble DO Past Med/Surg History Medical History (Updated 10/13/20 @ 14:09 by Leonor Gamble DO) Acquired deviated nasal septum Afib Clinton's palsy CAD (coronary artery disease) Chronic acquired lymphedema Chronic diastolic (congestive) heart failure Chronic hypoxemic respiratory failure Chronic renal insufficiency CKD (chronic kidney disease), stage III Complex sleep apnea syndrome COPD (chronic obstructive pulmonary disease) Cor pulmonale resolved; echo 2019 with normal RV function Coronary artery disease Depression DM II (diabetes mellitus, type II), controlled Foot drop, right GERD (gastroesophageal reflux disease) Gout History of heart attack Hx of fracture of pelvis Hyperlipidemia Hypertension Monoclonal gammopathy of unknown significance Neuropathy SANDOR (obstructive sleep apnea) nasal CPAP 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 RIGHT. Nonoperative Rx. 09/2020. Pneumonia Stage 3b chronic kidney disease Surgical History History of cataract surgery History of coronary artery stent placement (1999) PCI L circumflex History of coronary artery stent placement (2000) PCI of LAD History of dental surgery History of right hip replacement (2016) History of tonsillectomy Hx of CABG (2011) triple vessel, 2012 S/P AV gerald ablation (04/12/17) S/P ORIF (open reduction internal fixation) fracture (2018) R femur Status cardiac pacemaker (04/12/17) biventricular pacemaker Family History Brother Coronary heart disease Brother Colorectal cancer Mother Myocardial infarction Father Myocardial infarction Social History Smoking Status: Former smoker Years Smoked: 30; Second Hand Exposure: No; Hx Alcohol Use: No Hx Substance Use: No Preferred Language: Cymro Communication Ability: Effective Manager Action Required: No Beliefs That Will Affect Care: None marital status: marital status details: 2 daughters Current Living Situation: Spouse Current Living Situation Comment: Lives with at [facility]; currently in SNF for rehab current occupational status: retired other: worked [employer] x 30 years previously Feels Safe at Home: Yes Assistive Devices: CPAP, Denture - Upper, Denture - Lower and Hearing Aid - Bilateral Allergies Allergies Allergy/AdvReac Type Severity Reaction Status Date / Time No Known Drug Allergies Allergy Unknown Unknown Verified 10/12/20 07:03 Home Meds Home Medications Medication Instructions Recorded Confirmed aspirin 81 mg tablet,delayed 81 mg PO QAM #0 11/04/16 10/12/20 release ipratropium 0.5 mg-albuterol 3 mg 3 ml INHALATION Q4H PRN #0 inh 11/04/16 10/12/20 (2.5 mg base)/3 mL nebulization soln ferrous sulfate 325 mg (65 mg 325 mg PO QAM #0 03/21/17 10/12/20 iron) tablet vitamin B complex 1 tab PO QAM 10/18/18 10/12/20 travoprost 0.004 % eye drops 1 drp OPB HS 09/20/19 10/12/20 simvastatin 10 mg tablet 10 mg PO HS 11/26/19 10/12/20 furosemide 40 mg tablet 40 mg PO BID tab 01/13/20 10/12/20 ascorbic acid (vitamin C) 1,000 mg 1 g PO QAM 08/21/20 10/12/20 tablet (Vitamin C) metoprolol tartrate 25 mg tablet 12.5 - 25 mg PO DIRECTED 08/21/20 10/12/20 zinc 50 mg tablet 50 mg PO QAM 08/21/20 10/12/20 pantoprazole 40 mg tablet,delayed 40 mg PO DAILYBB 08/28/20 10/12/20 release (Protonix) spironolactone 25 mg tablet 12.5 - 25 mg PO BID 08/28/20 10/12/20 acetaminophen 325 mg tablet 650 mg PO Q4 PRN MDD 3g 09/28/20 10/12/20 (Tylenol) escitalopram oxalate 5 mg tablet 5 mg PO QDD 09/28/20 10/12/20 (Lexapro) nitroglycerin 0.4 mg sublingual 0.4 mg SUBLINGUAL UD PRN 10/12/20 10/12/20 tablet (Nitrostat) oxycodone-acetaminophen 5 mg-325 1 tab PO Q4H PRN 10/12/20 10/12/20 mg tablet (Percocet) polyethylene glycol 3350 17 gram 17 g PO DAILY 10/12/20 10/12/20 oral powder packet (Miralax) Previous Rx's Medication Instructions Recorded fluticasone 500 mcg-salmeterol 50 1 inh INH BID #60 ea 01/10/20 mcg/dose blistr powdr for inhalation (Advair Diskus) allopurinol 300 mg tablet 300 mg PO QAM #30 tab 06/30/20 fluticasone propionate 50 2 spray INTRANASAL QAM #18.2 ml 06/30/20 mcg/actuation nasal spray,suspension (Flonase Allergy Relief) apixaban 2.5 mg tablet (Eliquis) 2.5 mg PO BID #60 tab 10/02/20 docusate sodium 100 mg capsule 100 mg PO BID #20 cap 10/02/20 Results & Data (ED) Vital Signs Vital Signs - 24 hr 10/12/20 05:40 10/12/20 06:00 10/12/20 06:17 Temperature 38 C H Temperature Source Oral Pulse Rate 70 70 Pulse Rate [Right Finger] Pulse Rate from SpO2 Sensor 70 Pulse Rhythm Regular Respiratory Rate 26 H 26 H Respiratory Effort / Characteristics Spontaneous Accessory Muscle Use Grunting Labored Respiratory Pattern Regular Blood Pressure 179/76 H 167/92 H Blood Pressure Mean 110 117 Pulse Oximetry 97 96 95 Oxygen Delivery Method Nasal Cannula Nasal Cannula Oxygen Flow Rate 2 2 Fraction of Inspired Oxygen Sepsis Recent Fever Within 48 Hours Yes Sepsis New/Unexplained Change in Mental Status Yes Sepsis Action Taken by Nursing No Action Required 10/12/20 06:31 10/12/20 06:42 10/12/20 07:01 Temperature Temperature Source Pulse Rate 70 Pulse Rate [Right Finger] Pulse Rate from SpO2 Sensor 69 70 70 Pulse Rhythm Respiratory Rate 25 H Respiratory Effort / Characteristics Respiratory Pattern Blood Pressure 188/60 H 156/74 H 180/125 H Blood Pressure Mean 102 101 143 Pulse Oximetry 96 95 95 Oxygen Delivery Method Oxygen Flow Rate Fraction of Inspired Oxygen Sepsis Recent Fever Within 48 Hours Sepsis New/Unexplained Change in Mental Status Sepsis Action Taken by Nursing 10/12/20 08:36 Temperature Temperature Source Pulse Rate 73 Pulse Rate [Right Finger] 73 Pulse Rate from SpO2 Sensor Pulse Rhythm Respiratory Rate 24 Respiratory Effort / Characteristics Spontaneous Respiratory Pattern Tachypnea Blood Pressure Blood Pressure Mean Pulse Oximetry 95 Oxygen Delivery Method BiPAP Oxygen Flow Rate Fraction of Inspired Oxygen 40 Sepsis Recent Fever Within 48 Hours Sepsis New/Unexplained Change in Mental Status Sepsis Action Taken by Nursing Laboratory Data Result diagrams: 10/13/20 08:57 10/13/20 05:02 Lab Results 10/12/20 10/12/20 10/12/20 Range/Units 06:12 06:12 06:12 WBC 7.69 (4.8-10.8) K/uL RBC 2.84 L (4.7-6.1) M/uL Hgb 9.1 L (14.0-18.0) g/dL Hct 28.3 L (42-52) % MCV 99.6 (80-100) fL MCH 32.0 (25-34) pg MCHC 32.2 (32-36) g/dL RDW Std Deviation 59.5 H (36.4-46.3) fL RDW Coeff of Inez 16.5 H (11.5-14.5) % Plt Count 354 (130-400) K/uL MPV 10.1 (7.4-10.4) fL Immature Gran % (Auto) 0.1 % Neut % (Auto) 83.0 % Lymph % (Auto) 5.2 % [place] % (Auto) 11.3 % Eos % (Auto) 0.3 % Baso % (Auto) 0.1 % Neut # (Auto) 6.38 (1.4-6.5) K/uL Lymph # (Auto) 0.40 L (1.2-3.4) K/uL [place] # (Auto) 0.87 H (0.11-0.59) K/uL Eos # (Auto) 0.02 (0-0.5) K/uL Baso # (Auto) 0.01 (0-0.2) K/uL Immature Gran # (Auto) 0.01 (0.00-0.02) K/uL PT Cancelled INR Cancelled APTT Cancelled PTT Ratio Cancelled VBG pH (7.36-7.41) VBG pCO2 (38-50) mmHg VBG pO2 mmHg VBG HCO3 mmol/L VBG O2 Saturation % VBG Base Excess mEq/L Barometric Pressure mm/Hg Sodium 134 L (136-145) mmol/L Potassium 3.9 (3.5-5.1) mmol/L Chloride 99 (98-107) mmol/L Carbon Dioxide 30 (21-32) mmol/L Anion Gap 5.0 (3-11) BUN 38 H (7-18) mg/dl Creatinine 1.30 (0.6-1.4) mg/dl Est Cr Clr Drug Dosing Not Reportable Est GFR ( Amer) 58.9 ml/min Est GFR (Non-Af Amer) 50.8 ml/min BUN/Creatinine Ratio 29.0 H (10-20) Glucose 126 H (70-99) mg/dl Lactate (0.4-2.0) mmol/L Calcium 10.0 (8.5-10.1) mg/dl Magnesium 2.4 (1.8-2.4) mg/dl Total Bilirubin 1.3 H (0.2-1) mg/dl AST 28 (15-37) U/L ALT 41 (12-78) U/L Alkaline Phosphatase 120 H (45-117) U/L Total Protein 9.4 H (6.4-8.2) gm/dl Albumin 2.1 L (3.4-5.0) gm/dl Globulin 7.3 H (2.5-4.0) gm/dl Albumin/Globulin Ratio 0.3 L (0.9-2) COVID-19 Eval Order SARS-CoV-2 (PCR) (Negative) 10/12/20 10/12/20 10/12/20 Range/Units 06:12 06:13 06:13 WBC (4.8-10.8) K/uL RBC (4.7-6.1) M/uL Hgb (14.0-18.0) g/dL Hct (42-52) % MCV (80-100) fL MCH (25-34) pg MCHC (32-36) g/dL RDW Std Deviation (36.4-46.3) fL RDW Coeff of Inez (11.5-14.5) % Plt Count (130-400) K/uL MPV (7.4-10.4) fL Immature Gran % (Auto) % Neut % (Auto) % Lymph % (Auto) % [place] % (Auto) % Eos % (Auto) % Baso % (Auto) % Neut # (Auto) (1.4-6.5) K/uL Lymph # (Auto) (1.2-3.4) K/uL [place] # (Auto) (0.11-0.59) K/uL Eos # (Auto) (0-0.5) K/uL Baso # (Auto) (0-0.2) K/uL Immature Gran # (Auto) (0.00-0.02) K/uL PT INR APTT PTT Ratio VBG pH (7.36-7.41) VBG pCO2 (38-50) mmHg VBG pO2 mmHg VBG HCO3 mmol/L VBG O2 Saturation % VBG Base Excess mEq/L Barometric Pressure mm/Hg Sodium (136-145) mmol/L Potassium (3.5-5.1) mmol/L Chloride (98-107) mmol/L Carbon Dioxide (21-32) mmol/L Anion Gap (3-11) BUN (7-18) mg/dl Creatinine (0.6-1.4) mg/dl Est Cr Clr Drug Dosing Est GFR ( Amer) ml/min Est GFR (Non-Af Amer) ml/min BUN/Creatinine Ratio (10-20) Glucose (70-99) mg/dl Lactate 1.0 (0.4-2.0) mmol/L Calcium (8.5-10.1) mg/dl Magnesium (1.8-2.4) mg/dl Total Bilirubin (0.2-1) mg/dl AST (15-37) U/L ALT (12-78) U/L Alkaline Phosphatase (45-117) U/L Total Protein (6.4-8.2) gm/dl Albumin (3.4-5.0) gm/dl Globulin (2.5-4.0) gm/dl Albumin/Globulin Ratio (0.9-2) COVID-19 Eval Order Covid19 at [facility] SARS-CoV-2 (PCR) NEGATIVE (Negative) 10/12/20 Range/Units 08:50 WBC (4.8-10.8) K/uL RBC (4.7-6.1) M/uL Hgb (14.0-18.0) g/dL Hct (42-52) % MCV (80-100) fL MCH (25-34) pg MCHC (32-36) g/dL RDW Std Deviation (36.4-46.3) fL RDW Coeff of Inez (11.5-14.5) % Plt Count (130-400) K/uL MPV (7.4-10.4) fL Immature Gran % (Auto) % Neut % (Auto) % Lymph % (Auto) % [place] % (Auto) % Eos % (Auto) % Baso % (Auto) % Neut # (Auto) (1.4-6.5) K/uL Lymph # (Auto) (1.2-3.4) K/uL [place] # (Auto) (0.11-0.59) K/uL Eos # (Auto) (0-0.5) K/uL Baso # (Auto) (0-0.2) K/uL Immature Gran # (Auto) (0.00-0.02) K/uL PT INR APTT PTT Ratio VBG pH 7.37 (7.36-7.41) VBG pCO2 61 H (38-50) mmHg VBG pO2 77 mmHg VBG HCO3 35 mmol/L VBG O2 Saturation 92.8 % VBG Base Excess 8.0 mEq/L Barometric Pressure 729.5 mm/Hg Sodium (136-145) mmol/L Potassium (3.5-5.1) mmol/L Chloride (98-107) mmol/L Carbon Dioxide (21-32) mmol/L Anion Gap (3-11) BUN (7-18) mg/dl Creatinine (0.6-1.4) mg/dl Est Cr Clr Drug Dosing Est GFR ( Amer) ml/min Est GFR (Non-Af Amer) ml/min BUN/Creatinine Ratio (10-20) Glucose (70-99) mg/dl Lactate (0.4-2.0) mmol/L Calcium (8.5-10.1) mg/dl Magnesium (1.8-2.4) mg/dl Total Bilirubin (0.2-1) mg/dl AST (15-37) U/L ALT (12-78) U/L Alkaline Phosphatase (45-117) U/L Total Protein (6.4-8.2) gm/dl Albumin (3.4-5.0) gm/dl Globulin (2.5-4.0) gm/dl Albumin/Globulin Ratio (0.9-2) COVID-19 Eval Order SARS-CoV-2 (PCR) (Negative) Administered Medications Apixaban (Apixaban 2.5 Mg Tab) 2.5 mg PO BID JAQUELINE Stop: 11/11/20 20:59 Last Admin: 10/12/20 20:38 Dose: 2.5 mg Documented by: [id number] Escitalopram Oxalate (Escitalopram Oxalate 10 Mg Tab) 5 mg PO QDD JAQUELINE Stop: 11/11/20 16:29 Last Admin: 10/12/20 16:08 Dose: 5 mg Documented by: [id number] Fentanyl Citrate (Fentanyl Bolus From Bag) 50 mcg IV Q60M PRN PRN Reason: Pain or Agitation Stop: 10/26/20 14:50 Last Admin: 10/13/20 06:12 Dose: 50 mcg Documented by: [id number] Fluticasone Propionate (Fluticasone Propionate Na Spr 16 Gm Btl) 2 sprays NA QAM [facility] Stop: 11/12/20 08:59 Last Admin: 10/13/20 10:13 Dose: 2 sprays Documented by: [id number] Fluticasone/Vilanterol (Fluticasone/Vilanterol 100/25mcg 14 Puffs/Inhaler) 1 puffs INH PM [facility] Stop: 11/11/20 20:59 Last Admin: 10/12/20 22:38 Dose: Not Given Documented by: [id number] Propofol (Diprivan) 1,000 mg in 100 mls @ 0 mls/hr IV .Q0M [facility]; Protocol Stop: 10/15/20 09:29 Last Admin: 10/13/20 10:12 Dose: Not Given Documented by: [id number] Admin: 10/13/20 10:00 Dose: Not Given Documented by: [id number] Titration: 10/13/20 10:00 Dose: 0 mcg/kg/min, 0 mls/hr Documented by: [id number] Admin: 10/13/20 09:59 Dose: Not Given Documented by: [id number] Admin: 10/13/20 09:58 Dose: Not Given Documented by: [id number] Titration: 10/13/20 08:50 Dose: 0 mcg/kg/min, 0 mls/hr Documented by: [id number] Titration: 10/13/20 08:05 Dose: 10 mcg/kg/min, 6.4 mls/hr Documented by: [id number] Admin: 10/13/20 07:28 Dose: 15 mcg/kg/min, 9.6 mls/hr Documented by: [id number] Cosigned by: [id number] Titration: 10/13/20 07:01 Dose: 15 mcg/kg/min, 9.6 mls/hr Documented by: [id number] Cosigned by: [id number] Titration: 10/13/20 06:45 Dose: 15 mcg/kg/min, 9.6 mls/hr Documented by: [id number] Titration: 10/13/20 05:40 Dose: 15 mcg/kg/min, 9.6 mls/hr Documented by: [id number] Titration: 10/13/20 05:27 Dose: 20 mcg/kg/min, 12.8 mls/hr Documented by: [id number] Titration: 10/13/20 04:50 Dose: 25 mcg/kg/min, 15.9 mls/hr Documented by: [id number] Admin: 10/13/20 00:56 Dose: 30 mcg/kg/min, 19.1 mls/hr Documented by: [id number] Cosigned by: [id number] Titration: 10/13/20 00:55 Dose: 30 mcg/kg/min, 19.1 mls/hr Documented by: [id number] Cosigned by: [id number] Admin: 10/12/20 19:30 Dose: 30 mcg/kg/min, 19.1 mls/hr Documented by: [id number] Cosigned by: [id number] Titration: 10/12/20 19:30 Dose: 30 mcg/kg/min, 19.1 mls/hr Documented by: [id number] Cosigned by: [id number] Titration: 10/12/20 18:50 Dose: 30 mcg/kg/min, 19.1 mls/hr Documented by: [id number] Cosigned by: [id number] Admin: 10/12/20 14:08 Dose: 30 mcg/kg/min, 19.1 mls/hr Documented by: [id number] Cosigned by: [id number] Titration: 10/12/20 14:08 Dose: 30 mcg/kg/min, 19.1 mls/hr Documented by: [id number] Cosigned by: [id number] Titration: 10/12/20 12:34 Dose: 30 mcg/kg/min, 19.1 mls/hr Documented by: [id number] Titration: 10/12/20 11:17 Dose: 25 mcg/kg/min, 15.9 mls/hr Documented by: [id number] Titration: 10/12/20 10:00 Dose: 20 mcg/kg/min, 12.8 mls/hr Documented by: [id number] Titration: 10/12/20 09:47 Dose: 15 mcg/kg/min, 9.6 mls/hr Documented by: [id number] Titration: 10/12/20 09:37 Dose: 10 mcg/kg/min, 6.4 mls/hr Documented by: [id number] Admin: 10/12/20 09:30 Dose: 5 mcg/kg/min, 3.2 mls/hr Documented by: [id number] Cosigned by: [id number] Famotidine 20 mg/ Syringe 5 mls @ 2.5 mls/min IV Q12 JAQUELINE Stop: 11/11/20 10:56 Last Admin: 10/13/20 07:30 Dose: 2.5 mls/min Documented by: [id number] Admin: 10/12/20 19:31 Dose: 2.5 mls/min Documented by: [id number] Admin: 10/12/20 13:01 Dose: 2.5 mls/min Documented by: [id number] Doxycycline Hyclate 100 mg/ (Dextrose) 110 mls @ 50 mls/hr IV Q12H [facility] Stop: 10/19/20 19:59 Last Infusion: 10/13/20 10:00 Dose: 0 mls/hr Documented by: [id number] Admin: 10/13/20 07:29 Dose: 50 mls/hr Documented by: [id number] Infusion: 10/12/20 21:25 Dose: 0 mls/hr Documented by: [id number] Admin: 10/12/20 19:30 Dose: 50 mls/hr Documented by: [id number] Furosemide 40 mg/ Syringe 4 mls @ 4 mls/min IV BID [facility] Stop: 11/11/20 20:59 Last Admin: 10/13/20 10:12 Dose: 4 mls/min Documented by: [id number] Admin: 10/12/20 20:38 Dose: 4 mls/min Documented by: [id number] Fentanyl Citrate (Fentanyl Drip) 1,250 mcg in 250 mls @ 0 mls/hr IV .Q0M JAQUELINE; Protocol Stop: 10/26/20 14:59 Last Titration: 10/13/20 10:00 Dose: 0 mcg/hr, 0 mls/hr Documented by: [id number] Cosigned by: [id number] Titration: 10/13/20 08:05 Dose: 0 mcg/hr, 0 mls/hr Documented by: [id number] Cosigned by: [id number] Titration: 10/13/20 06:45 Dose: 25 mcg/hr, 5 mls/hr Documented by: [id number] Cosigned by: [id number] Titration: 10/13/20 06:06 Dose: 25 mcg/hr, 5 mls/hr Documented by: [id number] Cosigned by: [id number] Titration: 10/13/20 05:44 Dose: 0 mcg/hr, 0 mls/hr Documented by: [id number] Cosigned by: [id number] Titration: 10/12/20 18:50 Dose: 25 mcg/hr, 5 mls/hr Documented by: [id number] Cosigned by: [id number] Admin: 10/12/20 16:08 Dose: 25 mcg/hr, 5 mls/hr Documented by: [id number] Cosigned by: [id number] Methylprednisolone 40 mg/ (Syringe) 0.64 mls @ 1.5 mls/min IV Q6H JAQUELINE Stop: 11/11/20 15:14 Last Admin: 10/13/20 10:12 Dose: 1.5 mls/min Documented by: [id number] Admin: 10/13/20 03:45 Dose: 1.5 mls/min Documented by: [id number] Admin: 10/12/20 20:38 Dose: 1.5 mls/min Documented by: [id number] Admin: 10/12/20 16:08 Dose: 1.5 mls/min Documented by: [id number] Ceftriaxone Sodium 2,000 mg/ (Dextrose) 70 mls @ 140 mls/hr IV DAILY@1200 JAQUELINE; Protocol Stop: 10/20/20 11:59 Last Infusion: 10/13/20 11:29 Dose: 0 mls/hr Documented by: [id number] Admin: 10/13/20 10:56 Dose: 140 mls/hr Documented by: [id number] Insulin Aspart (Insulin Aspart 100 Units/Ml 3 Ml Pen) 0 units SC Q4 JAQUELINE; Protocol Stop: 11/12/20 08:44 Last Admin: 10/13/20 11:00 Dose: 1 units Documented by: [id number] Cosigned by: [id number] Admin: 10/13/20 09:00 Dose: 2 units Documented by: [id number] Cosigned by: [id number] Metoprolol Tartrate (Metoprolol Tartrate 25 Mg Tab) 12.5 mg PO BID JAQULEINE Stop: 11/11/20 20:59 Last Admin: 10/12/20 20:37 Dose: 12.5 mg Documented by: [id number] Simvastatin (Simvastatin 10 Mg Tab) 10 mg PO HS JAQUELINE Stop: 11/11/20 20:59 Last Admin: 10/12/20 20:37 Dose: 10 mg Documented by: [id number] Travoprost (Travoprost Z 0.004% Oph Soln 2.5 Ml Btl) 1 drops OPB HS JAQUELINE Stop: 11/11/20 20:59 Last Admin: 10/12/20 20:37 Dose: 1 drops Documented by: [id number] Discontinued Medications Albuterol (Albut/Ipratrop 3mg/0.5mg Neb 3 Ml Vial) 9 ml NEB NOW STA Stop: 10/12/20 08:30 Last Admin: 10/12/20 08:36 Dose: 9 ml Documented by: [id number] Albuterol (Albut/Ipratrop 3mg/0.5mg Neb 3 Ml Vial) 3 ml INH Q6R JAQUELINE Stop: 11/11/20 12:59 Last Admin: 10/13/20 08:00 Dose: 3 ml Documented by: [id number] Admin: 10/13/20 01:34 Dose: 3 ml Documented by: [id number] Admin: 10/12/20 19:10 Dose: 3 ml Documented by: [id number] Admin: 10/12/20 15:58 Dose: Not Given Documented by: [id number] Piperacillin Sod/Tazobactam Sod (Zosyn) 4.5 gm in 120 mls @ 240 mls/hr IV NOW ONE Stop: 10/12/20 06:55 Last Infusion: 10/12/20 07:13 Dose: 0 mls/hr Documented by: [id number] Admin: 10/12/20 06:43 Dose: 240 mls/hr Documented by: [id number] Lorazepam (Ativan) 0.5 mg in 1 mls @ 1 mls/min IV NOW STA Stop: 10/12/20 07:51 Last Admin: 10/12/20 07:59 Dose: 1 mls/min Documented by: [id number] Doxycycline Hyclate 100 mg/ (Dextrose) 110 mls @ 50 mls/hr IV NOW STA Stop: 10/12/20 10:41 Last Infusion: 10/12/20 11:17 Dose: 0 mls/hr Documented by: [id number] Admin: 10/12/20 08:46 Dose: 50 mls/hr Documented by: [id number] Piperacillin Sod/Tazobactam (Sod 4.5 gm/ Dextrose) 120 mls @ 30 mls/hr IV Q8H [facility]; Protocol Stop: 10/19/20 11:59 Last Infusion: 10/13/20 07:50 Dose: 0 mls/hr Documented by: [id number] Admin: 10/13/20 03:45 Dose: 30 mls/hr Documented by: [id number] Infusion: 10/12/20 23:07 Dose: 0 mls/hr Documented by: [id number] Admin: 10/12/20 19:30 Dose: 30 mls/hr Documented by: [id number] Infusion: 10/12/20 17:22 Dose: 0 mls/hr Documented by: [id number] Admin: 10/12/20 13:01 Dose: 30 mls/hr Documented by: [id number] Potassium Chloride (K Cruz / Wtr) 10 meq in 100 mls @ 100 mls/hr IV Q1H JAQUELINE Stop: 10/13/20 09:54 Last Infusion: 10/13/20 10:38 Dose: 0 mls/hr Documented by: [id number] Admin: 10/13/20 09:27 Dose: 100 mls/hr Documented by: [id number] Infusion: 10/13/20 09:22 Dose: 100 mls/hr Documented by: [id number] Admin: 10/13/20 08:22 Dose: 100 mls/hr Documented by: [id number] Infusion: 10/13/20 08:22 Dose: 100 mls/hr Documented by: [id number] Admin: 10/13/20 07:27 Dose: 100 mls/hr Documented by: [id number] Infusion: 10/13/20 07:18 Dose: 100 mls/hr Documented by: [id number] Admin: 10/13/20 06:18 Dose: 100 mls/hr Documented by: [id number] Insulin Glargine (Insulin Glargine Solostar 100 Units/Ml 3 Ml Pen) 15 units SC NOW ONE; Protocol Stop: 10/13/20 08:46 Last Admin: 10/13/20 08:59 Dose: 15 units Documented by: [id number] Cosigned by: [id number] Methylprednisolone (Methylprednisolone 125 Mg/2 Ml Vial) 60 mg IV NOW STA Stop: 10/12/20 09:03 Last Admin: 10/12/20 09:40 Dose: 60 mg Documented by: [id number] Miscellaneous (Rapid Sequence Induction Bag) Confirm Administered Dose 1 ea .ROUTE .STK-MED ONE Stop: 10/12/20 09:13 Last Admin: 10/12/20 09:40 Dose: 1 ea Documented by: [id number] Miscellaneous (Stat Iv Infusion Titration Per Protocol) 1 ea N/A NOW STA Stop: 10/12/20 09:27 Last Admin: 10/12/20 11:18 Dose: 1 ea Documented by: [id number] Miscellaneous (Patient's Height And/Or Weight Needed) 1 ea N/A NOW ONE Stop: 10/13/20 08:31 Last Admin: 10/13/20 08:52 Dose: 1 ea Documented by: [id number] Propofol (Propofol Iv Emulsion 10 Mg/Ml 100 Ml Vial) Confirm Administered Dose 1,000 mg IV .STK-MED ONE Stop: 10/12/20 09:23 Last Admin: 10/12/20 09:38 Dose: Not Given Documented by: [id number] Propofol (Propofol Iv Emulsion 10 Mg/Ml 20 Ml Vial) Confirm Administered Dose 200 mg IV .STK-MED ONE Stop: 10/12/20 09:24 Last Admin: 10/12/20 09:40 Dose: Not Given Documented by: [id number] Imaging Data Radiologist's Impression: Chest X-Ray 10/12/20 05:48 XR chest 1V portable CLINICAL HISTORY: SEPSIS COMPARISON STUDY: Chest radiograph September 28, 2020. FINDINGS: There are median sternotomy wires and mediastinal surgical clips. No pneumothorax or pleural effusion is present. Dual-lead left subclavian pacemaker is in place. Cardiomegaly is unchanged. Bibasilar opacities have developed. There may be several additional scattered airspace opacities. There is pulmonary vascular congestion without overt pulmonary edema. IMPRESSION: 1. Interval development of bibasilar and scattered right lung opacities. The findings favor an infectious process. 2. Cardiomegaly with pulmonary vascular congestion. No overt pulmonary edema. ACT 112: Negative or not required by law. Electronically signed by: Sergio Pollack M.D. 10/12/2020 6:29 AM Discharge Plan Visit Data Chief Complaint: Fever Stated Complaint: AMS ED Provider: Leonor Gamble Discharge Problem: Pneumonia, Acute exacerbation of chronic obstructive pulmonary disease, Hypoxia Patient Disposition: Admitted As Inpatient Discharge Instructions Interventions: ED Discharge Assessment Last Done: 10/12/20 10:36
[2020-10-12] MEDS ORDERED: LORazepam 0.5 MG/1 ML VIAL IV STA (07:50)
--- NOTE | 2020-10-12 08:20 | History & Physical Report ---
Date of Service October 12, 2020 Assessment & Plan (1) Acute respiratory failure with hypoxia and hypercapnia: Plan: 2nd to right-sided pneumonia and COPD exacerbation. Does not appear decompensated from CHF standpoint. PE is in differential given poor mobility and recent right-sided periprosthetic femur fracture. He is on eliquis however it is low-dose 2.5mg BID. COVID-19 negative, and reports he is fully vaccinated. After speaking with the ICU, Dr Magdaleno came to evaluate the patient at bedside and recommended intubation with mechanical ventilation given his ongoing obtundation and his respiratory status. Patient was intubated in the ER emergently by Dr Magdaleno. (2) Pneumonia: Plan: Right-sided. Need to cover for gram negatives given recent hospital stays. To that end continue zosyn which was started in ER. Add doxycycline for atypical coverage. Check MRSA CLINIC PHYSICIAN swab and if + will add vancomycin. COVID-19 testing negative. patient is fully vaccinated. s/p intubation prior to transfer to ICU. Dr Magdaleno to perform bronchoscopy following intubation. F/u on cultures. (3) COPD exacerbation: Plan: Gave solumedrol 60mg IV x 1 in ER along with hour-long duoneb. Continue bronchodilators thereafter. Defer ongoing steroids to ICU attending. (4) Metabolic encephalopathy: Plan: 2nd to #1, #2, #3. Also with toxic component from IV ativan. Supportive care. (5) 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: Plan: RIGHT. Admitted to [facility] in September for such. Nonoperative management advised during that admission. Down the line once extubated and walking can ambulate as tolerated per 09/30/20 orthopedic progress note. (6) Stage 3b chronic kidney disease: Plan: Cr today 1.3. BMP in am. (7) Chronic atrial fibrillation: Plan: Pacing on monitor. EKG with pacing. Telemetry ordered. Eliquis. (8) Hypertension: Plan: Hold metoprolol and diuretics. (9) GERD (gastroesophageal reflux disease): Plan: Pepcid BID IV. (10) CAD (coronary artery disease): Plan: No evidence of ACS. Continue asa. (11) Chronic diastolic (congestive) heart failure: Plan: Does not appear volume overloaded clinically. Weight today is significantly less than prior weights. No pulmonary edema on cxr. No LE edema. Hold diuretics for now. (12) DM II (diabetes mellitus, type II), controlled: Plan: ICU glycemic protocol. HbA1C 6.3% in August. (13) Status cardiac pacemaker: (14) Anemia: Plan: Hemoglobin today is similar to [place] admission. Trend. No indication for transfusion at this time. (15) Hyponatremia: Plan: Minimal. Likely 2nd to diuretic use. daily bmp/trend. (16) DVT prophylaxis: Plan: Eliquis. Patient should be on 5mg BID based on age, kidney function, and weight. [facility] he is not on the higher dose. Plan: extensively updated at bedside patient critically ill History of Present Illness Chief Complaint: altered MS, poor appetite, difficulty breathing Primary Care Provider: [facility] 80yo male - well known to the [facility] [place] hospital[place] service - with recent hospitalization from 09/28 to 10/02 for right-sided periprosthetic femur fracture treated nonoperatively. He also has h/o chronic diastolic CHF, CAD s/p CABG, T2DM, COPD, SANDOR on CPAP, pacemaker, CKD stage 3, and permanent a.fib on eliquis. Patient was discharged from [facility] to [facility] for rehab following his recent stay. was at bedside during my admission assessment and reports rehab was going poorly. He only walked 18 feet on one occasion. He was eating poorly since his arrival in rehab, and then his appetite worsened significantly yesterday morning ( reports he only ate bites of breakfast). Last pm his received a call from the [facility] that he was confused and agitated and was asked to come to help him calm down. She reports he was very confused and was only able to recognize her otherwise he was talking insensibly. Per his he had been using his CPAP nightly but last pm he did not use it because of his agitation/confusion. Limited notes from the SNF suggest he was incontinent of urine overnight. Upon arrival to [facility] he was very confused and agitated. He received a small dose of IV ativan and became more somnolent after receiving such. I arrived to the bedside after he received the ativan and could not obtain any history from the patient. I immediately asked nursing to page respiratory to place him on BIPAP and to give him an hour-long duoneb. Additionally, griffith, doxycycline IV, and IV solumedrol were also ordered. reports that he was ventilated for pneumonia in 2017. When asked if he would want full code measures including intubation/mech ventilation she feels he would indeed desire such. I did preparole counseling aide his before leaving the room that he may indeed need intubation given his critical status. Following the visit I informed Dr Magdaleno from the ICU about his tenuous status and requested ICU admission. Allergies Allergy/AdvReac Type Severity Reaction Status Date / Time No Known Drug Allergies Allergy Unknown Unknown Verified 10/12/20 07:03 Home Medications Medication Instructions Recorded Confirmed Type aspirin 81 mg tablet,delayed 81 mg PO QAM #0 11/04/16 10/12/20 History release ipratropium 0.5 mg-albuterol 3 mg 3 ml INHALATION Q4H PRN #0 inh 11/04/16 10/12/20 History (2.5 mg base)/3 mL nebulization soln ferrous sulfate 325 mg (65 mg 325 mg PO QAM #0 03/21/17 10/12/20 History iron) tablet vitamin B complex 1 tab PO QAM 10/18/18 10/12/20 History travoprost 0.004 % eye drops 1 drp OPB HS 09/20/19 10/12/20 History simvastatin 10 mg tablet 10 mg PO HS 11/26/19 10/12/20 History fluticasone 500 mcg-salmeterol 50 1 inh INH BID #60 ea 01/10/20 10/12/20 Rx mcg/dose blistr powdr for inhalation (Advair Diskus) furosemide 40 mg tablet 40 mg PO BID tab 01/13/20 10/12/20 History allopurinol 300 mg tablet 300 mg PO QAM #30 tab 06/30/20 10/12/20 Rx fluticasone propionate 50 2 spray INTRANASAL QAM #18.2 ml 06/30/20 10/12/20 Rx mcg/actuation nasal spray,suspension (Flonase Allergy Relief) ascorbic acid (vitamin C) 1,000 mg 1 g PO QAM 08/21/20 10/12/20 History tablet (Vitamin C) metoprolol tartrate 25 mg tablet 12.5 - 25 mg PO DIRECTED 08/21/20 10/12/20 History zinc 50 mg tablet 50 mg PO QAM 08/21/20 10/12/20 History pantoprazole 40 mg tablet,delayed 40 mg PO DAILYBB 08/28/20 10/12/20 History release (Protonix) spironolactone 25 mg tablet 12.5 - 25 mg PO BID 08/28/20 10/12/20 History acetaminophen 325 mg tablet 650 mg PO Q4 PRN MDD 3g 09/28/20 10/12/20 History (Tylenol) escitalopram oxalate 5 mg tablet 5 mg PO QDD 09/28/20 10/12/20 History (Lexapro) apixaban 2.5 mg tablet (Eliquis) 2.5 mg PO BID #60 tab 10/02/20 10/12/20 Rx docusate sodium 100 mg capsule 100 mg PO BID #20 cap 10/02/20 10/12/20 Rx nitroglycerin 0.4 mg sublingual 0.4 mg SUBLINGUAL UD PRN 10/12/20 10/12/20 Hi story tablet (Nitrostat) oxycodone-acetaminophen 5 mg-325 1 tab PO Q4H PRN 10/12/20 10/12/20 History mg tablet (Percocet) polyethylene glycol 3350 17 gram 17 g PO DAILY 10/12/20 10/12/20 History oral powder packet (Miralax) Past Med/Surg History Medical History (Updated 10/12/20 @ 09:45 by Ken Dillon) Acquired deviated nasal septum Afib Clinton's palsy CAD (coronary artery disease) Chronic acquired lymphedema Chronic diastolic (congestive) heart failure Chronic hypoxemic respiratory failure Chronic renal insufficiency CKD (chronic kidney disease), stage III Complex sleep apnea syndrome COPD (chronic obstructive pulmonary disease) Cor pulmonale resolved; echo 2019 with normal RV function Coronary artery disease Depression DM II (diabetes mellitus, type II), controlled Foot drop, right GERD (gastroesophageal reflux disease) Gout History of heart attack Hx of fracture of pelvis Hyperlipidemia Hypertension Monoclonal gammopathy of unknown significance Neuropathy SANDOR (obstructive sleep apnea) nasal CPAP 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 RIGHT. Nonoperative Rx. 09/2020. Pneumonia Stage 3b chronic kidney disease Surgical History History of cataract surgery History of coronary artery stent placement (1999) PCI L circumflex History of coronary artery stent placement (2000) PCI of LAD History of dental surgery History of right hip replacement (2016) History of tonsillectomy Hx of CABG (2011) triple vessel, 2012 S/P AV gerald ablation (04/12/17) S/P ORIF (open reduction internal fixation) fracture (2018) R femur Status cardiac pacemaker (04/12/17) biventricular pacemaker Family History Brother Coronary heart disease Brother Colorectal cancer Mother Myocardial infarction Father Myocardial infarction Social History Smoking Status: Former smoker Years Smoked: 30; Smoking End Date: 1999; Second Hand Exposure: No; Hx Alcohol Use: No Hx Substance Use: No Preferred Language: Guyanese Communication Ability: Effective Director Translation Required: No Beliefs That Will Affect Care: None marital status: marital status details: 2 daughters Current Living Situation: Spouse Current Living Situation Comment: Lives with at [facility]; currently in SNF for rehab current occupational status: retired Other Information That Helps Us Care for You: No other: 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 Feels Safe at Home: Yes Safety Concerns: Feels Safe At This Time Assistive Devices: Denture - Upper, Denture - Lower, Glasses and Hearing Aid - Bilateral Review of Systems Review of Systems: Unobtainable due to cognitive status and Unobtainable due to reduced consciousness Physical Exam Physical Exam: Gen: altered; audible wheezing; retractions Eyes: PERRL HEENT: MM dry; b/l hearing aids Neck: no JVD, no lymphadenopathy Heart: RRR, s1 s2 Lungs: b/l wheezes with retractions and accessory muscle use, crackles b/l bases worse on right Abd: protuberant but soft, NT, BS+, no HSM Ext: no edema, pulses 1+ b/l Skin: no rashes Neuro: b/l babinski's; DTRs 1+ b/l upper and lower extremities; no obvious facial droop; withdraws to painful stimulus Psych: not alert, lethargic/obtunded, does not respond to voice but withdraws from pain Results & Data Results & Data ([facility]) Vital Signs (Past 12 Hours) Vital Signs Temp Pulse Resp BP Pulse Ox 10/12/20 07:01 70 25 H 180/125 H 95 10/12/20 06:42 156/74 H 95 10/12/20 06:31 188/60 H 96 10/12/20 06:17 70 26 H 95 10/12/20 06:00 167/92 H 96 10/12/20 05:40 38 C H 70 26 H 179/76 H 97 Laboratory Results Laboratory Results - last 24 hr 10/12/20 10/12/20 10/12/20 06:12 06:12 06:12 WBC 7.69 RBC 2.84 L Hgb 9.1 L Hct 28.3 L MCV 99.6 MCH 32.0 MCHC 32.2 RDW Std Deviation 59.5 H RDW Coeff of Inez 16.5 H Plt Count 354 MPV 10.1 Immature Gran % (Auto) 0.1 Neut % (Auto) 83.0 Lymph % (Auto) 5.2 Kle[place] % (Auto) 11.3 Eos % (Auto) 0.3 Baso % (Auto) 0.1 Neut # (Auto) 6.38 Lymph # (Auto) 0.40 L Kle[place] # (Auto) 0.87 H Eos # (Auto) 0.02 Baso # (Auto) 0.01 Immature Gran # (Auto) 0.01 PT Cancelled INR Cancelled APTT Cancelled PTT Ratio Cancelled VBG pH VBG pCO2 VBG pO2 VBG HCO3 VBG O2 Saturation VBG Base Excess Barometric Pressure Sodium 134 L Potassium 3.9 Chloride 99 Carbon Dioxide 30 Anion Gap 5.0 BUN 38 H Creatinine 1.30 Est Cr Clr Drug Dosing Not Reportable Est GFR ( Amer) 58.9 Est GFR (Non-Af Amer) 50.8 BUN/Creatinine Ratio 29.0 H Glucose 126 H Lactate Calcium 10.0 Magnesium 2.4 Total Bilirubin 1.3 H AST 28 ALT 41 Alkaline Phosphatase 120 H Total Protein 9.4 H Albumin 2.1 L Globulin 7.3 H Albumin/Globulin Ratio 0.3 L COVID-19 Eval Order SARS-CoV-2 (PCR) 10/12/20 10/12/20 10/12/20 06:12 06:13 06:13 WBC RBC Hgb Hct MCV MCH MCHC RDW Std Deviation RDW Coeff of Inez Plt Count MPV Immature Gran % (Auto) Neut % (Auto) Lymph % (Auto) [place] % (Auto) Eos % (Auto) Baso % (Auto) Neut # (Auto) Lymph # (Auto) [place] # (Auto) Eos # (Auto) Baso # (Auto) Immature Gran # (Auto) PT INR APTT PTT Ratio VBG pH VBG pCO2 VBG pO2 VBG HCO3 VBG O2 Saturation VBG Base Excess Barometric Pressure Sodium Potassium Chloride Carbon Dioxide Anion Gap BUN Creatinine Est Cr Clr Drug Dosing Est GFR ( Amer) Est GFR (Non-Af Amer) BUN/Creatinine Ratio Glucose Lactate 1.0 Calcium Magnesium Total Bilirubin AST ALT Alkaline Phosphatase Total Protein Albumin Globulin Albumin/Globulin Ratio COVID-19 Eval Order Covid19 at [facility] SARS-CoV-2 (PCR) NEGATIVE 10/12/20 08:50 WBC RBC Hgb Hct MCV MCH MCHC RDW Std Deviation RDW Coeff of Inez Plt Count MPV Immature Gran % (Auto) Neut % (Auto) Lymph % (Auto) [place] % (Auto) Eos % (Auto) Baso % (Auto) Neut # (Auto) Lymph # (Auto) [place] # (Auto) Eos # (Auto) Baso # (Auto) Immature Gran # (Auto) PT INR APTT PTT Ratio VBG pH 7.37 VBG pCO2 61 H VBG pO2 77 VBG HCO3 35 VBG O2 Saturation 92.8 VBG Base Excess 8.0 Barometric Pressure 729.5 Sodium Potassium Chloride Carbon Dioxide Anion Gap BUN Creatinine Est Cr Clr Drug Dosing Est GFR ( Amer) Est GFR (Non-Af Amer) BUN/Creatinine Ratio Glucose Lactate Calcium Magnesium Total Bilirubin AST ALT Alkaline Phosphatase Total Protein Albumin Globulin Albumin/Globulin Ratio COVID-19 Eval Order SARS-CoV-2 (PCR) Diagnostic Findings Laboratory Results - last 24 hr 10/12/20 10/12/20 10/12/20 06:12 06:12 06:12 WBC 7.69 RBC 2.84 L Hgb 9.1 L Hct 28.3 L MCV 99.6 MCH 32.0 MCHC 32.2 RDW Std Deviation 59.5 H RDW Coeff of Inez 16.5 H Plt Count 354 MPV 10.1 Immature Gran % (Auto) 0.1 Neut % (Auto) 83.0 Lymph % (Auto) 5.2 Kleberg % (Auto) 11.3 Eos % (Auto) 0.3 Baso % (Auto) 0.1 Neut # (Auto) 6.38 Lymph # (Auto) 0.40 L [place] # (Auto) 0.87 H Eos # (Auto) 0.02 Baso # (Auto) 0.01 Immature Gran # (Auto) 0.01 PT Cancelled INR Cancelled APTT Cancelled PTT Ratio Cancelled VBG pH VBG pCO2 VBG pO2 VBG HCO3 VBG O2 Saturation VBG Base Excess Barometric Pressure Sodium 134 L Potassium 3.9 Chloride 99 Carbon Dioxide 30 Anion Gap 5.0 BUN 38 H Creatinine 1.30 Est Cr Clr Drug Dosing Not Reportable Est GFR ( Amer) 58.9 Est GFR (Non-Af Amer) 50.8 BUN/Creatinine Ratio 29.0 H Glucose 126 H POC Glucose Lactate Calcium 10.0 Magnesium 2.4 Total Bilirubin 1.3 H AST 28 ALT 41 Alkaline Phosphatase 120 H Total Protein 9.4 H Albumin 2.1 L Globulin 7.3 H Albumin/Globulin Ratio 0.3 L Urine Color Urine Appearance Urine pH Ur Specific [place] Urine Protein Urine Glucose (UA) Urine Ketones Urine Blood Urine Nitrite Urine Bilirubin Urine Urobilinogen Ur Leukocyte Esterase Urine WBC (Auto) Urine RBC (Auto) U Hyaline Cast (Auto) U Epithel Cells (Auto) Urine Bacteria (Auto) Triple Phos Crystals Urine Yeast Nasal Screen MRSA (PCR) COVID-19 Eval Order SARS-CoV-2 (PCR) 10/12/20 10/12/20 10/12/20 06:12 06:13 06:13 WBC RBC Hgb Hct MCV MCH MCHC RDW Std Deviation RDW Coeff of Inez Plt Count MPV Immature Gran % (Auto) Neut % (Auto) Lymph % (Auto) [place] % (Auto) Eos % (Auto) Baso % (Auto) Neut # (Auto) Lymph # (Auto) [place] # (Auto) Eos # (Auto) Baso # (Auto) Immature Gran # (Auto) PT INR APTT PTT Ratio VBG pH VBG pCO2 VBG pO2 VBG HCO3 VBG O2 Saturation VBG Base Excess Barometric Pressure Sodium Potassium Chloride Carbon Dioxide Anion Gap BUN Creatinine Est Cr Clr Drug Dosing Est GFR ( Amer) Est GFR (Non-Af Amer) BUN/Creatinine Ratio Glucose POC Glucose Lactate 1.0 Calcium Magnesium Total Bilirubin AST ALT Alkaline Phosphatase Total Protein Albumin Globulin Albumin/Globulin Ratio Urine Color Urine Appearance Urine pH Ur Specific [place] Urine Protein Urine Glucose (UA) Urine Ketones Urine Blood Urine Nitrite Urine Bilirubin Urine Urobilinogen Ur Leukocyte Esterase Urine WBC (Auto) Urine RBC (Auto) U Hyaline Cast (Auto) U Epithel Cells (Auto) Urine Bacteria (Auto) Triple Phos Crystals Urine Yeast Nasal Screen MRSA (PCR) COVID-19 Eval Order Covid19 at [facility] SARS-CoV-2 (PCR) NEGATIVE 10/12/20 10/12/20 10/12/20 08:50 10:35 12:37 WBC RBC Hgb Hct MCV MCH MCHC RDW Std Deviation RDW Coeff of Inez Plt Count MPV Immature Gran % (Auto) Neut % (Auto) Lymph % (Auto) [place] % (Auto) Eos % (Auto) Baso % (Auto) Neut # (Auto) Lymph # (Auto) [place] # (Auto) Eos # (Auto) Baso # (Auto) Immature Gran # (Auto) PT INR APTT PTT Ratio VBG pH 7.37 VBG pCO2 61 H VBG pO2 77 VBG HCO3 35 VBG O2 Saturation 92.8 VBG Base Excess 8.0 Barometric Pressure 729.5 Sodium Potassium Chloride Carbon Dioxide Anion Gap BUN Creatinine Est Cr Clr Drug Dosing Est GFR ( Amer) Est GFR (Non-Af Amer) BUN/Creatinine Ratio Glucose POC Glucose Lactate Calcium Magnesium Total Bilirubin AST ALT Alkaline Phosphatase Total Protein Albumin Globulin Albumin/Globulin Ratio Urine Color Dark Yellow Urine Appearance Turbid A Urine pH 8.0 H Ur Specific [place] 1.024 Urine Protein 2+ H Urine Glucose (UA) Negative Urine Ketones Negative Urine Blood 2+ H Urine Nitrite Negative Urine Bilirubin Negative Urine Urobilinogen Negative Ur Leukocyte Esterase 3+ H Urine WBC (Auto) >30 H Urine RBC (Auto) 10-30 H U Hyaline Cast (Auto) 1-5 U Epithel Cells (Auto) 10-20 H Urine Bacteria (Auto) 4+ H Triple Phos Crystals Present A Urine Yeast Not Reportable Nasal Screen MRSA (PCR) Negative COVID-19 Eval Order SARS-CoV-2 (PCR) 10/12/20 17:46 WBC RBC Hgb Hct MCV MCH MCHC RDW Std Deviation RDW Coeff of Inez Plt Count MPV Immature Gran % (Auto) Neut % (Auto) Lymph % (Auto) [place] % (Auto) Eos % (Auto) Baso % (Auto) Neut # (Auto) Lymph # (Auto) [place] # (Auto) Eos # (Auto) Baso # (Auto) Immature Gran # (Auto) PT INR APTT PTT Ratio VBG pH VBG pCO2 VBG pO2 VBG HCO3 VBG O2 Saturation VBG Base Excess Barometric Pressure Sodium Potassium Chloride Carbon Dioxide Anion Gap BUN Creatinine Est Cr Clr Drug Dosing Est GFR ( Amer) Est GFR (Non-Af Amer) BUN/Creatinine Ratio Glucose POC Glucose 185 H Lactate Calcium Magnesium Total Bilirubin AST ALT Alkaline Phosphatase Total Protein Albumin Globulin Albumin/Globulin Ratio Urine Color Urine Appearance Urine pH Ur Specific [place] Urine Protein Urine Glucose (UA) Urine Ketones Urine Blood Urine Nitrite Urine Bilirubin Urine Urobilinogen Ur Leukocyte Esterase Urine WBC (Auto) Urine RBC (Auto) U Hyaline Cast (Auto) U Epithel Cells (Auto) Urine Bacteria (Auto) Triple Phos Crystals Urine Yeast Nasal Screen MRSA (PCR) COVID-19 Eval Order SARS-CoV-2 (PCR) EKG - my reading - ventricular pacing @ 70 BPM Chest X-Ray 10/12/20 05:48 XR chest 1V portable CLINICAL HISTORY: SEPSIS COMPARISON STUDY: Chest radiograph September 28, 2020. FINDINGS: There are median sternotomy wires and mediastinal surgical clips. No pneumothorax or pleural effusion is present. Dual-lead left subclavian pacemaker is in place. Cardiomegaly is unchanged. Bibasilar opacities have developed. There may be several additional scattered airspace opacities. There is pulmonary vascular congestion without overt pulmonary edema. IMPRESSION: 1. Interval development of bibasilar and scattered right lung opacities. The findings favor an infectious process. 2. Cardiomegaly with pulmonary vascular congestion. No overt pulmonary edema. ACT 112: Negative or not required by law. Electronically signed by: Sergio Pollack M.D. 10/12/2020 6:29 AM Code Status & VTE Plan Code Status full code per Critical Care Time Critical Care Time: Yes 75 PG Care Time/CCT Total # of Minutes Spent Total Time Spent with Patient: Total time spent is greater than 50% in coordination of care (as documented) at patient's floor/unit and/or counseling patient: Critical Care Time: Yes Coding Level of Care Code None Diagnoses Acute respiratory failure with hypoxia and hypercapnia J96.01; J96.02 Pneumonia J18.9 Metabolic encephalopathy G93.41 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 M97.01XA Encounter type: initial encounter Laterality: right Stage 3b chronic kidney disease N18.32 Chronic atrial fibrillation I48.20 Hypertension I10 Hypertension type: essential hypertension GERD (gastroesophageal reflux disease) K21.9 CAD (coronary artery disease) I25.10 Chronic diastolic (congestive) heart failure I50.32 DM II (diabetes mellitus, type II), controlled E11.9 Diabetes mellitus complication status: without complication Diabetes mellitus fpc insulin use: without fpc use Status cardiac pacemaker Z95.0 COPD exacerbation J44.1 DVT prophylaxis Z29.9 Anemia D64.9 Hyponatremia E87.1 Additional Codes Critical Care Time - Critical Care Time: Yes ([id number]) (1) 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 Encounter type: initial encounter Laterality: right Qualified Code(s): M97.01XA - Periprosthetic fracture around internal prosthetic right hip joint, initial encounter (2) DM II (diabetes mellitus, type II), controlled Diabetes mellitus complication status: without complication Diabetes mellitus fpc insulin use: without library monitor use Qualified Code(s): E11.9 - Type 2 diabetes mellitus without complications (3) Hypertension Hypertension type: essential hypertension Qualified Code(s): I10 - Essential (primary) hypertension
[2020-10-12] MEDS ORDERED: ALBUT/IPRATROP 3MG/0.5MG NEB 3 ML VIAL NEB STA (08:29)
[2020-10-12] MEDS ORDERED: DOXYCYCLINE HYCLATE 100 MG in DEXTROSE 5% 100 ML IV STA (08:30)
[2020-10-12] MEDS ORDERED: methylPREDNISolone 60 MG in SYRINGE 0 ML IV STA (08:55)
[2020-10-12 08:59] LABS: Oxygen Saturation VBG 92.8 %; pH VBG 7.37 (7.36-7.41)
[2020-10-12] MEDS ORDERED: methylPREDNISolone 125 MG/2 ML VIAL IV STA (09:02)
[2020-10-12] MEDS ORDERED: RAPID SEQUENCE INDUCTION BAG ONE (09:12)
[2020-10-12] MEDS ORDERED: PROPOFOL IV EMULSION 10 MG/ML 20 ML VIAL IV ONE (09:23)
[2020-10-12] MEDS ORDERED: STAT IV Infusion **Titration per Protocol STA ×2 (09:26→14:51)
[2020-10-12] MEDS: PROPOFOL IV EMULSION 10 MG/ML 100 ML VIAL IV ONE ×2 (09:28→09:38)
[2020-10-12] MEDS: propofoL 1,000 MG/100 ML VIAL IV SCH ×3 (09:30→19:30)
--- NOTE | 2020-10-12 10:21 | Electrocardiogram Report ---
Test Reason : Blood Pressure : / mmHG Vent. Rate : 070 BPM Atrial Rate : 070 BPM P-R Int : 412 ms QRS Dur : 134 ms QT Int : 430 ms P-R-T Axes : 050 -39 095 degrees QTc Int : 464 ms Atrial-sensed ventricular-paced rhythm with prolonged AV conduction Abnormal ECG When compared with ECG of 28-SEP-2020 16:41, No significant change was found Confirmed by Luis Odonnell ([id number]) on 10/12/2020 10:21:29 AM Referred By: Shanthi Rossi Confirmed By:Luis Odonnell
[2020-10-12] MEDS ORDERED: PROPOFOL BOLUS FROM BAG IV PRN (10:57)
[2020-10-12] MEDS ORDERED: ICU PROTOCOL FOR HYPERGLYCEMIA PRN (10:57)
--- NOTE | 2020-10-12 11:27 | Procedure Note ---
Procedure Note Date of Service October 12, 2020 Note Procedure Date: Noted above Procedure: Endotracheal intubation Pre-procedure Diagnosis: Acute hypercapnic respiratory failure Post-procedure Diagnosis: same as above Prior to Procedure: Informed Consent: emergent Attending Staff: Tien Magdaleno DO The identity of the patient was confirmed and a bedside time out was performed. Description of Procedure: Patient was evaluated and required intubation for impending respiratory failure. The patient was prepared in the usual fashion. A glide scope 3 laryngoscope was used. A 8 mm inner diameter endotrachial tube was placed endotracheally to 25 cm at the teeth. A grade 1 view was obtained. The endotracheal tube was noted to pass through the vocal cords. Chest rise was bilateral. Bilateral breath sounds were heard without air sounds in the abdomen. Mist was noted in the endo tracheal tube. End-tidal CO2 measurement was positive. Placement later confirmed via bronchoscopy. Complications: None Findings: Not applicable Specimens: Not applicable Estimated blood loss: Zero Coding CPT Codes Resuscitation - Resuscitation: 75883 Endotracheal Intubation, emergency ([id number]) [facility] [place] Procedure Codes (Charges) Resuscitation Resuscitation: 44634 Endotracheal Intubation, emergency
--- NOTE | 2020-10-12 11:30 | Procedure Note ---
Procedure Note Date of Service October 12, 2020 Note Procedure date: Noted above Procedure: fiberoptic bronchoscopy Pre-procedure indication: Right-sided pulmonary infiltrate Post-procedure Diagnosis: same as above Prior to Procedure: Informed Consent: The risks, benefits, indications, potential complications, and alternatives were explained to the patient's and informed consent obtained. Attending Staff: Tien Magdaleno DO Resident/APC: Thor Valdovinos Prep: Not applicable Anesthesia: Continuous infusion The identity of the patient was confirmed and a bedside time out was performed. Description of Procedure: Fiberoptic bronchoscopy was performed via endotracheal tube. Bronchioalveolar lavage of the right middle lobe was performed. Findings included: Excessive dynamic airway collapse of the proximal airways and purulence secretions were suctioned and removed Complications: None Specimens: Bronchial washings sent for culture and Gram stain, fungal elements, AFB stain and culture, cell count differential. Estimated blood loss: Zero Coding CPT Codes Pulmonary/Thoracic - Pulmonary and Thoracic: 93432 Dx bronchoscopy/BAL ([id number]) [facility] [place] Procedure Codes (Charges) Pulmonary/Thoracic Procedure 1: Pulmonary and Thoracic: 43320 Dx bronchoscopy/BAL
[2020-10-12 12:48] LABS: Appearance Urine Turbid (Clear); Bacteria Urine Automated 4+ (Negative); Bilirubin Urine Negative (Negative); Blood Urine 2+ (Negative); Color Urine Dark Yellow; Glucose Urine UA Negative (Negative); Ketones Urine Negative (Negative); Leukocyte Esterase Urine 3+ (Negative); Nitrite Urine Negative (Negative); Specific Gravity Urine 1.024 (1.000-1.030); Urobilinogen Urine Negative (Negative); WBC Urine Automated >30 /hpf (0-5)
[2020-10-12 12:52] LABS: Protein Urine 2+ (Negative)
[2020-10-12] MEDS: FAMOTIDINE 20 MG in SYRINGE 3 ML IV SCH ×2 (13:01→19:31)
[2020-10-12] MEDS: PIPERACILLIN/TAZOBACTAM 4.5 GM in DEXTROSE 5% 100 ML IV SCH ×2 (13:01→19:30)
[2020-10-12 13:05] LABS: Triple Phosphate Crystal Urine Present (None Prsent)
[2020-10-12] MEDS ORDERED: ETOMIDATE 2 MG/ML 20 ML VIAL IV ONE (14:40)
[2020-10-12] MEDS ORDERED: fentaNYL DRIP 1,250 MCG/250 ML BAG IV SCH (15:00)
--- NOTE | 2020-10-12 15:09 | Critical Care Consultation ---
Date of Consultation October 12, 2020 Assessment & Plan (1) Acute respiratory failure with hypoxia and hypercapnia: Reason critically ill: 80 year old male with significant PMHx including chronic atrial fibrillation on anticoagulation, type 2 DM, CKD 3a, CAD s/p CABG and stent, HTN, HLD, GERD, anxiety, diastolic CHF, severe COPD, SANDOR, depression, and recent right periprosthetic hip fx admitted for acute respiratory failure with hypoxia and hypercapnia secondary to R sided pneumonia and COPD exacerbation. Requires ICU care due to current intubation for ventilator dependent respiratory failure. Neuro: CAM ICU negative Metabolic encephalopathy - Secondary to VDRF, right sided pneumonia, and COPD exacerbation - Will continue to monitor Cardiac/Vascular: Chronic atrial fibrillation - Currently paced a-fib with rate of 70 - Will continue metoprolol at 12.5mg po BID - Continue Eliquis 2.5mg po BID - Continuous monitoring on telemetry Respiratory: VDRF secondary to R sided pneumonia and COPD exacerbation - COVID 19 negative - Continue vent management. Maintain RASS with goal of 0 to -2 - Pneumonia: will continue Zosyn and doxycycline. MRSA nares pending - COPD: Received solumedrol 60mg IV in ER. Continue steroids with solumedrol 40mg IV q6h. - s/p duoneb on admission. Continue duoneb tx - Continue home Lasix of 40mg BID GI/Nutrition: - No acute issues. - GERD, continue famotidine - No acute issues Renal/Lytes: - Stage 3b CKD. Cr on admission was 1.3 - Avoid nephrotoxic agents - Electrolyte replacement per ICU replacement protocol Genitourinary: - Curtis catheter in place. Strict Is/Os - UA/cx pending Endo: - Hx of DM - Continue ICU hyperglycemic protocol Heme: History of chronic anemia. - H&H 9.1/28.3 on admission. - Baseline Hgb 8-9. Will continue to monitor. - No signs of bleeding. ID: - Febrile, Tmax 38.3 - Zosyn and doxycycline for management of pneumonia as noted above - MRSA nares negative. Ortho: 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, right - Continue nonoperative management Lines/IV Access: PIV DVT Prophylaxis: home Eliquis GI Prophylaxis: Famotidine (2) Pneumonia: (3) Metabolic encephalopathy: (4) COPD exacerbation: (5) Anemia: (6) Stage 3b chronic kidney disease: (7) Chronic atrial fibrillation: (8) GERD (gastroesophageal reflux disease): (9) CAD (coronary artery disease): (10) DM II (diabetes mellitus, type II), controlled: Supervising Physician Co-Signing Physician Notes Dr. Mcrae was resident physician during care of patient. I separately evaluated patient for lin portions of the history and the exam. I was present during the critical portion of medical decision making, and I discussed the case with the resident. I generally agree with the findings and plan. Underwent bronchoscopy for pneumonia. Discussed risks and benefits with patient's and consent obtained. We will start with broad-spectrum antibiotics for hospital associated pneumonia. Patient critically ill, I have personally spent 45 minutes of critical care time in the direct management of this patient. This is a life/limb threatening event. This includes time spent evaluating patient, direct bedside care, chart review, placing orders, interpretation of diagnostic studies, discussion with consultants, patient, and/or family members regarding treatment decisions, as well as other required patient management activities. This time is exclusive of all separately billable procedures, and teaching time and separate from and in addition to any other critical care service time. History of Present Illness Attending Physician: Ken Dillon History of Present Illness Rodrigo Mane is an 80 year old male with a PMHx of chronic diastolic CHF, CAD s/p CABG and stent, T2DM, CKD 3a, COPD, SANDOR on CPAP, pacemaker, chronic atrial fibrillation on anticoagulation with eliquis who presented to the hospital on 10/12/20 with acute SOB. Patient was recently admitted at [facility] from 09/28 to 10/02 due to right sided periprosthetic femur fracture that was treated non-operatively. He was discharged from [facility] to [facility] for rehab. Per records, patient's noted that he was doing poor at rehab and that last night, she was called from the rehab center as the patient was confused and agitated. His reports that he uses CPAP nightly for hx of SANDOR but last night he did not use it due tot he agitation and confusion. Transfer form from the nursing center to [facility] states that he was sent due to "increasing confusion. speech becoming mumbled, becoming incontinent." CXR showed "Interval development of bibasilar and scattered right lung opacitie s. The findings favor an infectious process." There is no leukocytosis. Chronic anemia present with H&H of 9.1&28.3. Lactate wnl. COVID negative. Patient was admitted for COPD exacerbation and right sided pneumonia. He continued to be obtunded after being put on BiPAP and press tender was called for evaluation for possible intubation due to the tenuous status. On our arrival, patient was obtunded on BiPAP and unresponsive to painful or verbal stimuli. At that time, he was intubated (see procedure note) and admitted to the ICU. Allergies Allergy/AdvReac Type Severity Reaction Status Date / Time No Known Drug Allergies Allergy Unknown Unknown Verified 10/12/20 07:03 Home Medications Medication Instructions Recorded Confirmed Type aspirin 81 mg tablet,delayed 81 mg PO QAM #0 11/04/16 10/12/20 History release ipratropium 0.5 mg-albuterol 3 mg 3 ml INHALATION Q4H PRN #0 inh 11/04/16 10/12/20 History (2.5 mg base)/3 mL nebulization soln ferrous sulfate 325 mg (65 mg 325 mg PO QAM #0 03/21/17 10/12/20 History iron) tablet vitamin B complex 1 tab PO QAM 10/18/18 10/12/20 History travoprost 0.004 % eye drops 1 drp OPB HS 09/20/19 10/12/20 History simvastatin 10 mg tablet 10 mg PO HS 11/26/19 10/12/20 History fluticasone 500 mcg-salmeterol 50 1 inh INH BID #60 ea 01/10/20 10/12/20 Rx mcg/dose blistr powdr for inhalation (Advair Diskus) furosemide 40 mg tablet 40 mg PO BID tab 01/13/20 10/12/20 History allopurinol 300 mg tablet 300 mg PO QAM #30 tab 06/30/20 10/12/20 Rx fluticasone propionate 50 2 spray INTRANASAL QAM #18.2 ml 06/30/20 10/12/20 Rx mcg/actuation nasal spray,suspension (Flonase Allergy Relief) ascorbic acid (vitamin C) 1,000 mg 1 g PO QAM 08/21/20 10/12/20 History tablet (Vitamin C) metoprolol tartrate 25 mg tablet 12.5 - 25 mg PO DIRECTED 08/21/20 10/12/20 History zinc 50 mg tablet 50 mg PO QAM 08/21/20 10/12/20 History pantoprazole 40 mg tablet,delayed 40 mg PO DAILYBB 08/28/20 10/12/20 History release (Protonix) spironolactone 25 mg tablet 12.5 - 25 mg PO BID 08/28/20 10/12/20 History acetaminophen 325 mg tablet 650 mg PO Q4 PRN MDD 3g 09/28/20 10/12/20 History (Tylenol) escitalopram oxalate 5 mg tablet 5 mg PO QDD 09/28/20 10/12/20 History (Lexapro) apixaban 2.5 mg tablet (Eliquis) 2.5 mg PO BID #60 tab 10/02/20 10/12/20 Rx docusate sodium 100 mg capsule 100 mg PO BID #20 cap 10/02/20 10/12/20 Rx nitroglycerin 0.4 mg sublingual 0.4 mg SUBLINGUAL UD PRN 10/12/20 10/12/20 History tablet (Nitrostat) oxycodone-acetaminophen 5 mg-325 1 tab PO Q4H PRN 10/12/20 10/12/20 History mg tablet (Percocet) polyethylene glycol 3350 17 gram 17 g PO DAILY 10/12/20 10/12/20 History oral powder packet (Miralax) Patient History Medical History (Updated 10/13/20 @ 14:09 by Leonor Gamble DO) Acquired deviated nasal septum Afib Clinton's palsy CAD (coronary artery disease) Chronic acquired lymphedema Chronic diastolic (congestive) heart failure Chronic hypoxemic respiratory failure Chronic renal insufficiency CKD (chronic kidney disease), stage III Complex sleep apnea syndrome COPD (chronic obstructive pulmonary disease) Cor pulmonale resolved; echo 2019 with normal RV function Coronary artery disease Depression DM II (diabetes mellitus, type II), controlled Foot drop, right GERD (gastroesophageal reflux disease) Gout History of heart attack Hx of fracture of pelvis Hyperlipidemia Hypertension Monoclonal gammopathy of unknown significance Neuropathy SANDOR (obstructive sleep apnea) nasal CPAP 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 RIGHT. Nonoperative Rx. 09/2020. Pneumonia Stage 3b chronic kidney disease Surgical History History of cataract surgery History of coronary artery stent placement (1999) PCI L circumflex History of coronary artery stent placement (2000) PCI of LAD History of dental surgery History of right hip replacement (2017) History of tonsillectomy Hx of CABG (2011) triple vessel, 2012 S/P AV gerald ablation (04/12/17) S/P ORIF (open reduction internal fixation) fracture (2018) R femur Status cardiac pacemaker (04/12/17) biventricular pacemaker Family History Brother Coronary heart disease Brother Colorectal cancer Mother Myocardial infarction Father Myocardial infarction Social History Smoking Status: Former smoker Years Smoked: 30; Second Hand Exposure: No; Hx Alcohol Use: No Hx Substance Use: No Preferred Language: Welsh Communication Ability: Effective [employer] Required: No Beliefs That Will Affect Care: None marital status: marital status details: 2 daughters Current Living Situation: Spouse Current Living Situation Comment: Lives with at [facility]; currently in SNF for rehab current occupational status: retired other: worked [employer] x 30 years previously Feels Safe at Home: Yes Assistive Devices: CPAP, Denture - Upper, Denture - Lower and Hearing Aid - Bilateral Review of Systems Review of Systems: Unobtainable due to endotracheal tube Physical Exam Physical Exam: Examination s/p intubation. GENERAL: On ventilator, sedated, no distress. Elderly male otherwise appears well developed and well nourished. Vital signs reviewed as above. EYES: Anicteric sclerae. HENT: Moist mucous membranes. Dentures removed. With visualization of posterior pharynx with glide scope, there were heavy secretions noted. RESPIRATORY: Diminished breath sounds bilaterally. CARDIOVASCULAR: Distant heart sounds but regular rate and rhythm. ABDOMEN: Soft and non-distended. Hypoactive bowel sounds. EXTREMITIES: 2+ BLE edema to knee. SKIN: Warm, dry. NEUROLOGIC: Obtunded. Unresponsive to verbal stimuli. Sedated. Results & Data Results & Data ([facility]) Vital Signs (Past 12 Hours) Vital Signs Temp Pulse Pulse Resp BP BP Pulse Ox 10/12/20 13:33 37.4 C 70 126/59 L 96 10/12/20 12:33 37.6 C H 70 121/58 L 94 10/12/20 12:10 37.7 C H 70 126/57 L 95 10/12/20 11:33 37.9 C H 70 116/55 L 95 10/12/20 10:54 38.3 C H 70 20 128/58 L 96 10/12/20 10:32 38.2 C H 70 18 128/58 L 96 10/12/20 10:10 70 112/51 L 95 10/12/20 10:00 70 150/62 H 98 10/12/20 09:50 70 147/59 H 98 10/12/20 09:46 70 151/63 H 98 10/12/20 09:36 87 145/55 H 99 10/12/20 09:22 84 98 10/12/20 09:18 70 20 95 10/12/20 09:00 70 22 164/77 H 96 10/12/20 08:50 70 21 98 10/12/20 08:40 70 24 97 10/12/20 08:36 73 73 24 95 10/12/20 08:30 70 28 H 93 10/12/20 08:20 70 26 H 94 10/12/20 08:10 70 27 H 94 10/12/20 08:00 70 18 95 10/12/20 07:50 70 25 H 95 10/12/20 07:40 70 27 H 95 10/12/20 07:31 70 24 92 10/12/20 07:01 70 25 H 180/125 H 95 10/12/20 06:42 156/74 H 95 10/12/20 06:31 188/60 H 96 10/12/20 06:17 70 26 H 10/12/20 06:00 167/92 H 96 10/12/20 05:40 38 C H 70 26 H 179/76 H 97 Laboratory Results 10/12/20 10/12/20 10/12/20 Range/Units 12:37 10:35 08:50 WBC (4.8-10.8) K/uL RBC (4.7-6.1) M/uL Hgb (14.0-18.0) g/dL Hct (42-52) % MCV (80-100) fL MCH (25-34) pg MCHC (32-36) g/dL RDW Std Deviation (36.4-46.3) fL RDW Coeff of Inez (11.5-14.5) % Plt Count (130-400) K/uL MPV (7.4-10.4) fL Immature Gran % (Auto) % Neut % (Auto) % Lymph % (Auto) % Mcdonald % (Auto) % Eos % (Auto) % Baso % (Auto) % Neut # (Auto) (1.4-6.5) K/uL Lymph # (Auto) (1.2-3.4) K/uL Mcdonald # (Auto) (0.11-0.59) K/uL Eos # (Auto) (0-0.5) K/uL Baso # (Auto) (0-0.2) K/uL Immature Gran # (Auto) (0.00-0.02) K/uL PT INR APTT PTT Ratio VBG pH 7.37 (7.36-7.41) VBG pCO2 61 H (38-50) mmHg VBG pO2 77 mmHg VBG HCO3 35 mmol/L VBG O2 Saturation 92.8 % VBG Base Excess 8.0 mEq/L Barometric Pressure 729.5 mm/Hg Sodium (136-145) mmol/L Potassium (3.5-5.1) mmol/L Chloride (98-107) mmol/L Carbon Dioxide (21-32) mmol/L Anion Gap (3-11) BUN (7-18) mg/dl Creatinine (0.6-1.4) mg/dl Est Cr Clr Drug Dosing Est GFR ( Amer) ml/min Est GFR (Non-Af Amer) ml/min BUN/Creatinine Ratio (10-20) Glucose (70-99) mg/dl Lactate (0.4-2.0) mmol/L Calcium (8.5-10.1) mg/dl Magnesium (1.8-2.4) mg/dl Total Bilirubin (0.2-1) mg/dl AST (15-37) U/L ALT (12-78) U/L Alkaline Phosphatase (45-117) U/L Total Protein (6.4-8.2) gm/dl Albumin (3.4-5.0) gm/dl Globulin (2.5-4.0) gm/dl Albumin/Globulin Ratio (0.9-2) Urine Color Dark Yellow Urine Appearance Turbid A (Clear) Urine pH 8.0 H (4.5-7.5) Ur Specific [place] 1.024 (1.000-1.030) Urine Protein 2+ H (Negative) Urine Glucose (UA) Negative (Negative) Urine Ketones Negative (Negative) Urine Blood 2+ H (Negative) Urine Nitrite Negative (Negative) Urine Bilirubin Negative (Negative) Urine Urobilinogen Negative (Negative) Ur Leukocyte Esterase 3+ H (Negative) Urine WBC (Auto) >30 H (0-5) /hpf Urine RBC (Auto) 10-30 H (0-4) /hpf U Hyaline Cast (Auto) 1-5 (0-5) /lpf U Epithel Cells (Auto) 10-20 H (0-5) /lpf Urine Bacteria (Auto) 4+ H (Negative) Triple Phos Crystals Present A (None Prsent) Urine Yeast Not Reportable Nasal Screen MRSA (PCR) Negative (Negative) COVID-19 Eval Order SARS-CoV-2 (PCR) (Negative) 10/12/20 10/12/20 10/12/20 Range/Units 06:13 06:13 06:12 WBC (4.8-10.8) K/uL RBC (4.7-6.1) M/uL Hgb (14.0-18.0) g/dL Hct (42-52) % MCV (80-100) fL MCH (25-34) pg MCHC (32-36) g/dL RDW Std Deviation (36.4-46.3) fL RDW Coeff of Inez (11.5-14.5) % Plt Count (130-400) K/uL MPV (7.4-10.4) fL Immature Gran % (Auto) % Neut % (Auto) % Lymph % (Auto) % Mcdonald % (Auto) % Eos % (Auto) % Baso % (Auto) % Neut # (Auto) (1.4-6.5) K/uL Lymph # (Auto) (1.2-3.4) K/uL Mcdonald # (Auto) (0.11-0.59) K/uL Eos # (Auto) (0-0.5) K/uL Baso # (Auto) (0-0.2) K/uL Immature Gran # (Auto) (0.00-0.02) K/uL PT INR APTT PTT Ratio VBG pH (7.36-7.41) VBG pCO2 (38-50) mmHg VBG pO2 mmHg VBG HCO3 mmol/L VBG O2 Saturation % VBG Base Excess mEq/L Barometric Pressure mm/Hg Sodium (136-145) mmol/L Potassium (3.5-5.1) mmol/L Chloride (98-107) mmol/L Carbon Dioxide (21-32) mmol/L Anion Gap (3-11) BUN (7-18) mg/dl Creatinine (0.6-1.4) mg/dl Est Cr Clr Drug Dosing Est GFR ( Amer) ml/min Est GFR (Non-Af Amer) ml/min BUN/Creatinine Ratio (10-20) Glucose (70-99) mg/dl Lactate 1.0 (0.4-2.0) mmol/L Calcium (8.5-10.1) mg/dl Magnesium (1.8-2.4) mg/dl Total Bilirubin (0.2-1) mg/dl AST (15-37) U/L ALT (12-78) U/L Alkaline Phosphatase (45-117) U/L Total Protein (6.4-8.2) gm/dl Albumin (3.4-5.0) gm/dl Globulin (2.5-4.0) gm/dl Albumin/Globulin Ratio (0.9-2) Urine Color Urine Appearance (Clear) Urine pH (4.5-7.5) Ur Specific [place] (1.000-1.030) Urine Protein (Negative) Urine Glucose (UA) (Negative) Urine Ketones (Negative) Urine Blood (Negative) Urine Nitrite (Negative) Urine Bilirubin (Negative) Urine Urobilinogen (Negative) Ur Leukocyte Esterase (Negative) Urine WBC (Auto) (0-5) /hpf Urine RBC (Auto) (0-4) /hpf U Hyaline Cast (Auto) (0-5) /lpf U Epithel Cells (Auto) (0-5) /lpf Urine Bacteria (Auto) (Negative) Triple Phos Crystals (None Prsent) Urine Yeast Nasal Screen MRSA (PCR) (Negative) COVID-19 Eval Order Covid19 at [facility] SARS-CoV-2 (PCR) NEGATIVE (Negative) 10/12/20 10/12/20 10/12/20 Range/Units 06:12 06:12 06:12 WBC 7.69 (4.8-10.8) K/uL RBC 2.84 L (4.7-6.1) M/uL Hgb 9.1 L (14.0-18.0) g/dL Hct 28.3 L (42-52) % MCV 99.6 (80-100) fL MCH 32.0 (25-34) pg MCHC 32.2 (32-36) g/dL RDW Std Deviation 59.5 H (36.4-46.3) fL RDW Coeff of Inez 16.5 H (11.5-14.5) % Plt Count 354 (130-400) K/uL MPV 10.1 (7.4-10.4) fL Immature Gran % (Auto) 0.1 % Neut % (Auto) 83.0 % Lymph % (Auto) 5.2 % Mcdonald % (Auto) 11.3 % Eos % (Auto) 0.3 % Baso % (Auto) 0.1 % Neut # (Auto) 6.38 (1.4-6.5) K/uL Lymph # (Auto) 0.40 L (1.2-3.4) K/uL Mcdonald # (Auto) 0.87 H (0.11-0.59) K/uL Eos # (Auto) 0.02 (0-0.5) K/uL Baso # (Auto) 0.01 (0-0.2) K/uL Immature Gran # (Auto) 0.01 (0.00-0.02) K/uL PT Cancelled INR Cancelled APTT Cancelled PTT Ratio Cancelled VBG pH (7.36-7.41) VBG pCO2 (38-50) mmHg VBG pO2 mmHg VBG HCO3 mmol/L VBG O2 Saturation % VBG Base Excess mEq/L Barometric Pressure mm/Hg Sodium 134 L (136-145) mmol/L Potassium 3.9 (3.5-5.1) mmol/L Chloride 99 (98-107) mmol/L Carbon Dioxide 30 (21-32) mmol/L Anion Gap 5.0 (3-11) BUN 38 H (7-18) mg/dl Creatinine 1.30 (0.6-1.4) mg/dl Est Cr Clr Drug Dosing Not Reportable Est GFR ( Amer) 58.9 ml/min Est GFR (Non-Af Amer) 50.8 ml/min BUN/Creatinine Ratio 29.0 H (10-20) Glucose 126 H (70-99) mg/dl Lactate (0.4-2.0) mmol/L Calcium 10.0 (8.5-10.1) mg/dl Magnesium 2.4 (1.8-2.4) mg/dl Total Bilirubin 1.3 H (0.2-1) mg/dl AST 28 (15-37) U/L ALT 41 (12-78) U/L Alkaline Phosphatase 120 H (45-117) U/L Total Protein 9.4 H (6.4-8.2) gm/dl Albumin 2.1 L (3.4-5.0) gm/dl Globulin 7.3 H (2.5-4.0) gm/dl Albumin/Globulin Ratio 0.3 L (0.9-2) Urine Color Urine Appearance (Clear) Urine pH (4.5-7.5) Ur Specific [place] (1.000-1.030) Urine Protein (Negative) Urine Glucose (UA) (Negative) Urine Ketones (Negative) Urine Blood (Negative) Urine Nitrite (Negative) Urine Bilirubin (Negative) Urine Urobilinogen (Negative) Ur Leukocyte Esterase (Negative) Urine WBC (Auto) (0-5) /hpf Urine RBC (Auto) (0-4) /hpf U Hyaline Cast (Auto) (0-5) /lpf U Epithel Cells (Auto) (0-5) /lpf Urine Bacteria (Auto) (Negative) Triple Phos Crystals (None Prsent) Urine Yeast Nasal Screen MRSA (PCR) (Negative) COVID-19 Eval Order SARS-CoV-2 (PCR) (Negative) Resident Activity Tracking Resident Involvement: Resident Care Provided Care Provided: Adult Hospital Medicine (1) DM II (diabetes mellitus, type II), controlled Diabetes mellitus complication status: without complication Diabetes mellitus custodial insulin use: without termite helper use Qualified Code(s): E11.9 - Type 2 diabetes mellitus without complications
[2020-10-12] MEDS: ALBUT/IPRATROP 3MG/0.5MG NEB 3 ML VIAL INH SCH ×2 (15:58→19:10)
[2020-10-12] MEDS: ESCITALOPRAM OXALATE 10 MG TAB PO SCH (16:08)
[2020-10-12] MEDS: methylPREDNISolone 40 MG in SYRINGE 0 ML IV SCH ×2 (16:08→20:38)
[2020-10-12] MEDS: DOXYCYCLINE HYCLATE 100 MG in DEXTROSE 5% 100 ML IV SCH (19:30)
--- NOTE | 2020-10-12 20:34 | XRay Report ---
SINGLE VIEW CHEST CLINICAL HISTORY: Status post intubation and bronchoscopy. FINDINGS: 2 AP, portable, semierect chest radiographs are compared to study dated 10/12/2020 and correl ated with chest CT dated 12/06/2016. The examination is degraded by portable technique and patient ro tation. An endotracheal tube has been placed. The tip projects approximately 4.5 cm above the bisi. An enteric tube has been placed. The tip projects below the diaphragm over the proximal stomach. The patient is status post midline sternotomy. Epicardial pacing leads are noted. A 2-lead cardiac pacem khalida is unchanged in position. The heart is enlarged noting atherosclerotic calcification of the thor acic aorta. Mild pulmonary vascular congestion persists. Scattered bilateral airspace opacities are s imilar to previous. Scarring/atelectasis is again seen at both lung bases. No large pleural effusion or pneumothorax is identified. The skeletal structures are osteopenic. The bony thorax is grossly int act. IMPRESSION: 1. Endotracheal and enteric tubes have been placed as above. 2. No pneumothorax is seen post procedure. 3. Cardiomegaly and cardiac pacemaker. Mild pulmonary vascular congestion persists. 4. Scattered bilateral airspace opacities are similar to today's earlier examination and favor an inf ectious/inflammatory pneumonitis. ACT 112: Negative or not required by law. Electronically signed by: Laci Steele M.D. 10/12/2020 8:32 PM
[2020-10-12] MEDS: TRAVOPROST Z 0.004% OPH SOLN 2.5 ML BTL OPB SCH (20:37)
[2020-10-12] MEDS: METOPROLOL TARTRATE 25 MG TAB PO SCH (20:37)
[2020-10-12] MEDS: APIXABAN 2.5 MG TAB PO SCH (20:38)
[2020-10-12] MEDS: FUROSEMIDE 40 MG in SYRINGE 0 ML IV SCH (20:38)
[2020-10-12] MEDS ORDERED: SIMVASTATIN 10 MG TAB PO SCH (21:00)
[2020-10-12] MEDS: FLUTICASONE/VILANTEROL 100/25MCG 14 PUFFS/INHALER INH SCH (22:38)
[2020-10-13] MEDS: propofoL 1,000 MG/100 ML VIAL IV SCH ×6 (00:56→10:12)
[2020-10-13] MEDS: ALBUT/IPRATROP 3MG/0.5MG NEB 3 ML VIAL INH SCH ×2 (01:34→08:00)
[2020-10-13] MEDS: methylPREDNISolone 40 MG in SYRINGE 0 ML IV SCH ×4 (03:45→20:03)
[2020-10-13] MEDS: PIPERACILLIN/TAZOBACTAM 4.5 GM in DEXTROSE 5% 100 ML IV SCH (03:45)
[2020-10-13 05:21] LABS: Hematocrit (blood only) 24.7 % (42-52); Hemoglobin 7.9 g/dL (14.0-18.0); Immature Granulocytes # (auto) 0.01 K/uL (0.00-0.02); Immature Granulocytes % (auto) 0.2 %; Lymphocytes # (auto) 0.23 K/uL (1.2-3.4); Lymphocytes % (auto) 4.4 %; Mean Corpuscular Hemoglobin 31.3 pg (25-34); Mean Platelet Volume 9.9 fL (7.4-10.4); Monocytes % (auto) 1.9 %; Neutrophils # (auto) 4.92 K/uL (1.4-6.5); Neutrophils % (auto) 93.5 %; Platelet Count 291 K/uL (130-400); RDW Coefficient of Variation 16.4 % (11.5-14.5); RDW Standard Deviation 58.5 fL (36.4-46.3); Red Blood Count 2.52 M/uL (4.7-6.1); White Blood Count 5.26 K/uL (4.8-10.8)
[2020-10-13 05:47] LABS: Dohle Bodies 1+
[2020-10-13 05:49] LABS: BUN Creatinine Ratio 26.2 (10-20); Blood Urea Nitrogen 37 mg/dl (7-18); Calcium 9.3 mg/dl (8.5-10.1); Carbon Dioxide 30 mmol/L (21-32); Chloride 100 mmol/L (98-107); Est GFR (African American) 52.5 ml/min; Est GFR (Non-African American) 45.3 ml/min; Glucose 178 mg/dl (70-99); Magnesium 2.2 mg/dl (1.8-2.4); Potassium 3.3 mmol/L (3.5-5.1); Sodium 134 mmol/L (136-145)
[2020-10-13 05:59] LABS: iSTAT Allen Test Pass; iSTAT Art Bld Gas pCO2 Correct 32 mmHg (35-46); iSTAT Art Bld Gas pH Corrected 7.617 (7.35-7.45); iSTAT Arterial Blood Gas HCO3 33 meg/L (19-24); iSTAT Arterial Blood Gas pCO2 33 mmHg (35-46); iSTAT Arterial Blood Gas pH 7.61 (7.35-7.45); iSTAT Arterial Blood Gas pO2 67 mmHg (80-95); iSTAT Arterial Blood Gas pO2 C 64; iSTAT Carbon Dioxide 33 mmol/L (24-31); iSTAT FiO2 25 %; iSTAT Hematocrit 25 % (42-52); iSTAT Hemoglobin 8.5 g/dl (14.0-18.0); iSTAT Potassium 3.3 mmol/L (3.3-5.0); iSTAT Site L Radial; iSTAT Sodium 139 mmol/L (135-144)
[2020-10-13] MEDS: POTASSIUM CHLORIDE / WTR 10 MEQ/100 ML PLCT IV SCH ×4 (06:18→09:27)
[2020-10-13] MEDS: DOXYCYCLINE HYCLATE 100 MG in DEXTROSE 5% 100 ML IV SCH ×2 (07:29→19:57)
[2020-10-13] MEDS: FAMOTIDINE 20 MG in SYRINGE 3 ML IV SCH ×2 (07:30→20:03)
[2020-10-13 08:02] LABS: Estimated Average Glucose 123 mg/dl; Hemoglobin A1C 5.9 % (4.5-5.6)
--- NOTE | 2020-10-13 08:22 | Critical Care Progress Note ---
Date of Service October 13, 2020 Assessment & Plan (1) Acute respiratory failure with hypoxia and hypercapnia: Plan: Reason critically ill: 80 year old male with significant PMHx including chronic atrial fibrillation on anticoagulation, type 2 DM, CKD 3a, CAD s/p CABG and stent, HTN, HLD, GERD, anxiety, diastolic CHF, severe COPD, SANDOR, depression, and recent right periprosthetic hip fx admitted for acute respiratory failure with hypoxia and hypercapnia secondary to R sided pneumonia and COPD exacerbation. Neuro: CAM ICU negative Metabolic encephalopathy secondary to right sided pneumonia, and COPD exacerbation, improving - Will continue to monitor Cardiac/Vascular: Chronic atrial fibrillation - Currently paced a-fib with rate of 70 - Will continue metoprolol at 12.5mg po BID - Continue Eliquis 2.5mg po BID; check prior cardiology records, ? change to Eliquis 5mg po BID? - Continuous monitoring on telemetry Hyperlipidemia - continue home simvastatin Respiratory: R sided pneumonia and COPD exacerbation - COVID 19 negative, and notes he is fully vaccinated - Performed SBT today. Patient able to be extubated today, 10/13 - Continue with BiPAP qHS. Patient may use home machine. - Pneumonia: bronch wash cultures currently growing gram (-) bacilli. Awaiting speciation. Will start patient on ceftriaxone and discontinue Zosyn/doxycycline. - COPD: Received solumedrol 60mg IV in ER. Continue steroids with solumedrol 40mg IV q6h. Plan to convert to po steroid tomorrow. - s/p duoneb on admission. Continue duoneb tx prn - Continue home Lasix of 40mg BID. Encourage negative fluid balance. - Noted that on last hospitalization, Lasix was increased to 80mg BID (from 40mg BID) but at rehab was decreased again to 40mg BID. Will continue to monitor. GI/Nutrition: - No acute issues. - GERD, continue famotidine Renal/Lytes: - Stage 3b CKD. Cr on admission was 1.3 --> increased to 1.43 today - Avoid nephrotoxic agents - Hypokalemia at 3.3. repleting per protocol - Continue electrolyte replacement per ICU replacement protocol Genitourinary: - Curtis catheter in place. Strict Is/Os - UA/cx currently growing gram (-) bacilli. Awaiting speciation. Endo: - Hx of DM. Continue with Novolog. - Continue ICU hyperglycemic protocol Heme: History of chronic anemia. - H&H 9.1/28.3 on admission. H&H 7.9/24.7 today. - Baseline Hgb 8-9. Will continue to monitor. - No signs of bleeding. ID: - Febrile, Tmax 38.3, on admission. Has been afebrile since 1300 yesterday. - Will continue abx therapy with ceftriaxone as noted above. - MRSA nares negative. - Bronch wash cx growing gram neg bacilli; awaiting further speciation - Urine cx with gram neg bacilli; awaiting further speciation Ortho: 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, right - Continue nonoperative management Lines/IV Access: PIV DVT Prophylaxis: home Eliquis GI Prophylaxis: Famotidine (2) Pneumonia: (3) Metabolic encephalopathy: (4) COPD exacerbation: (5) Anemia: (6) Stage 3b chronic kidney disease: (7) Chronic atrial fibrillation: (8) GERD (gastroesophageal reflux disease): (9) CAD (coronary artery disease): (10) DM II (diabetes mellitus, type II), controlled: Admission and Anticipated Discharge Date Admission Date: October 12, 2020 Supervising Physician Co-Signing Physician Notes Dr. Mcrae was resident physician during care of patient. I separately evaluated patient for lin portions of the history and the exam. I was present during the critical portion of medical decision making, and I discussed the case with the resident. I generally agree with the findings and plan. Patient was liberated from ventilator today, PT OT speech consults pending de- escalate antibiotics to ceftriaxone for gram-negative rods most likely E. coli Subjective Patient with no acute events overnight. Intubated and sedated on initial evaluation. Review of Systems Review of Systems: Unobtainable due to endotracheal tube Physical Exam Physical Exam: GENERAL: On ventilator, sedated, RASS -1, no distress. Elderly male otherwise appears well developed and well nourished. Vital signs reviewed as above. EYES: Anicteric sclerae. HENT: Moist mucous membranes. Dentures removed. RESPIRATORY: Rhonci bilaterally. Increased breath sounds compared to examination yesterday. CARDIOVASCULAR: Distant heart sounds but regular rate and rhythm. ABDOMEN: Soft and non-distended. Hypoactive bowel sounds. EXTREMITIES: 1-2+ BLE edema to knee. SKIN: Warm, dry. NEUROLOGIC: Responsive to verbal stimuli. Follows simple commands. Results & Data Results & Data ([facility]) Vital Signs (Past 12 Hours) Vital Signs Temp Pulse Pulse Resp BP Pulse Ox 10/13/20 08:11 70 16 95 10/13/20 06:18 36.5 C 70 117/61 94 10/13/20 06:10 36.4 C L 70 124/65 94 10/13/20 05:33 36.3 C L 70 130/66 95 10/13/20 04:33 36.1 C L 70 120/62 93 10/13/20 03:33 36.0 C L 70 120/61 94 10/13/20 03:11 70 18 96 10/13/20 02:33 35.9 C L 70 114/58 L 91 10/13/20 01:34 70 26 H 94 10/13/20 01:33 35.8 C L 70 130/66 94 10/13/20 00:33 35.8 C L 70 125/65 94 10/13/20 00:00 70 10/12/20 23:33 36.0 C L 70 125/65 94 10/12/20 22:33 36.1 C L 70 120/63 94 10/12/20 22:07 70 18 96 10/12/20 21:33 36.3 C L 70 130/67 96 10/12/20 20:33 36.4 C L 70 135/64 95 Laboratory Results 10/13/20 10/13/20 10/13/20 Range/Units 05:38 05:36 05:02 WBC (4.8-10.8) K/uL RBC (4.7-6.1) M/uL Hgb (14.0-18.0) g/dL POC Hgb 8.5 L (14.0-18.0) g/dl Hct (42-52) % POC Hct 25 L (42-52) % MCV (80-100) fL MCH (25-34) pg MCHC (32-36) g/dL RDW Std Deviation (36.4-46.3) fL RDW Coeff of Inez (11.5-14.5) % Plt Count (130-400) K/uL MPV (7.4-10.4) fL Immature Gran % (Auto) % Neut % (Auto) % Lymph % (Auto) % [place] % (Auto) % Eos % (Auto) % Baso % (Auto) % Neut # (Auto) (1.4-6.5) K/uL Lymph # (Auto) (1.2-3.4) K/uL [place] # (Auto) (0.11-0.59) K/uL Eos # (Auto) (0-0.5) K/uL Baso # (Auto) (0-0.2) K/uL Immature Gran # (Auto) (0.00-0.02) K/uL Dohle Bodies Sample Site L Radial POC pH 7.61 H* (7.35-7.45) POC pCO2 33 L (35-46) mmHg POC pO2 67 L (80-95) mmHg POC HCO3 33 H (19-24) pepe/L POC Total CO2 33 H (24-31) mmol/L POC Base Excess 11.0 H (-9-1.8) pepe/L ABG pH (Temp Correct) 7.617 H* (7.35-7.45) ABG pCO2 (Temp Corrct 32 L (35-46) mmHg POC ABG pO2 at Pt Temp 64 POC ABG O2 Sat 96.0 H (90-95) % Rajesh Test Pass VBG pH (7.36-7.41) VBG pCO2 (38-50) mmHg VBG pO2 mmHg VBG HCO3 mmol/L VBG O2 Saturation % VBG Base Excess mEq/L Barometric Pressure mm/Hg O2 Delivery Device Ventilator POC O2 Rate 18 POC FiO2 25 % Tidal Volume 500 PEEP 10 POC Sodium 139 (135-144) mmol/L Sodium (136-145) mmol/L POC Potassium 3.3 (3.3-5.0) mmol/L Potassium (3.5-5.1) mmol/L Chloride (98-107) mmol/L Carbon Dioxide (21-32) mmol/L Anion Gap (3-11) BUN (7-18) mg/dl Creatinine (0.6-1.4) mg/dl Est Cr Clr Drug Dosing Est GFR ( Amer) ml/min Est GFR (Non-Af Amer) ml/min BUN/Creatinine Ratio (10-20) Glucose (70-99) mg/dl POC Glucose 198 H (70-99) mg/dl Estimat Average Glucose 123 mg/dl Hemoglobin A1c 5.9 H (4.5-5.6) % Calcium (8.5-10.1) mg/dl Phosphorus (2.5-4.9) mg/dl Magnesium (1.8-2.4) mg/dl Urine Color Urine Appearance (Clear) Urine pH (4.5-7.5) Ur Specific [place] (1.000-1.030) Urine Protein (Negative) Urine Glucose (UA) (Negative) Urine Ketones (Negative) Urine Blood (Negative) Urine Nitrite (Negative) Urine Bilirubin (Negative) Urine Urobilinogen (Negative) Ur Leukocyte Esterase (Negative) Urine WBC (Auto) (0-5) /hpf Urine RBC (Auto) (0-4) /hpf U Hyaline Cast (Auto) (0-5) /lpf U Epithel Cells (Auto) (0-5) /lpf Urine Bacteria (Auto) (Negative) Triple Phos Crystals (None Prsent) Urine Yeast Nasal Screen MRSA (PCR) (Negative) 10/13/20 10/13/20 10/13/20 Range/Units 05:02 05:02 00:26 WBC 5.26 (4.8-10.8) K/uL RBC 2.52 L (4.7-6.1) M/uL Hgb 7.9 L (14.0-18.0) g/dL POC Hgb (14.0-18.0) g/dl Hct 24.7 L (42-52) % POC Hct (42-52) % MCV 98.0 (80-100) fL MCH 31.3 (25-34) pg MCHC 32.0 (32-36) g/dL RDW Std Deviation 58.5 H (36.4-46.3) fL RDW Coeff of Inez 16.4 H (11.5-14.5) % Plt Count 291 (130-400) K/uL MPV 9.9 (7.4-10.4) fL Immature Gran % (Auto) 0.2 % Neut % (Auto) 93.5 % Lymph % (Auto) 4.4 % [place] % (Auto) 1.9 % Eos % (Auto) 0.0 % Baso % (Auto) 0.0 % Neut # (Auto) 4.92 (1.4-6.5) K/uL Lymph # (Auto) 0.23 L (1.2-3.4) K/uL [place] # (Auto) 0.10 L (0.11-0.59) K/uL Eos # (Auto) 0.00 (0-0.5) K/uL Baso # (Auto) 0.00 (0-0.2) K/uL Immature Gran # (Auto) 0.01 (0.00-0.02) K/uL Dohle Bodies 1+ Sample Site POC pH (7.35-7.45) POC pCO2 (35-46) mmHg POC pO2 (80-95) mmHg POC HCO3 (19-24) pepe/L POC Total CO2 (24-31) mmol/L POC Base Excess (-9-1.8) pepe/L ABG pH (Temp Correct) (7.35-7.45) ABG pCO2 (Temp Corrct (35-46) mmHg POC ABG pO2 at Pt Temp POC ABG O2 Sat (90-95) % Rajesh Test VBG pH (7.36-7.41) VBG pCO2 (38-50) mmHg VBG pO2 mmHg VBG HCO3 mmol/L VBG O2 Saturation % VBG Base Excess mEq/L Barometric Pressure mm/Hg O2 Delivery Device POC O2 Rate POC FiO2 % Tidal Volume PEEP POC Sodium (135-144) mmol/L Sodium 134 L (136-145) mmol/L POC Potassium (3.3-5.0) mmol/L Potassium 3.3 L D (3.5-5.1) mmol/L Chloride 100 (98-107) mmol/L Carbon Dioxide 30 (21-32) mmol/L Anion Gap 4.0 (3-11) BUN 37 H (7-18) mg/dl Creatinine 1.43 H (0.6-1.4) mg/dl Est Cr Clr Drug Dosing Not Reportable Est GFR ( Amer) 52.5 ml/min Est GFR (Non-Af Amer) 45.3 ml/min BUN/Creatinine Ratio 26.2 H (10-20) Glucose 178 H (70-99) mg/dl POC Glucose 194 H (70-99) mg/dl Estimat Average Glucose mg/dl Hemoglobin A1c (4.5-5.6) % Calcium 9.3 (8.5-10.1) mg/dl Phosphorus 3.0 (2.5-4.9) mg/dl Magnesium 2.2 (1.8-2.4) mg/dl Urine Color Urine Appearance (Clear) Urine pH (4.5-7.5) Ur Specific [place] (1.000-1.030) Urine Protein (Negative) Urine Glucose (UA) (Negative) Urine Ketones (Negative) Urine Blood (Negative) Urine Nitrite (Negative) Urine Bilirubin (Negative) Urine Urobilinogen (Negative) Ur Leukocyte Esterase (Negative) Urine WBC (Auto) (0-5) /hpf Urine RBC (Auto) (0-4) /hpf U Hyaline Cast (Auto) (0-5) /lpf U Epithel Cells (Auto) (0-5) /lpf Urine Bacteria (Auto) (Negative) Triple Phos Crystals (None Prsent) Urine Yeast Nasal Screen MRSA (PCR) (Negative) 10/12/20 10/12/20 10/12/20 Range/Units 17:46 12:37 10:35 WBC (4.8-10.8) K/uL RBC (4.7-6.1) M/uL Hgb (14.0-18.0) g/dL POC Hgb (14.0-18.0) g/dl Hct (42-52) % POC Hct (42-52) % MCV (80-100) fL MCH (25-34) pg MCHC (32-36) g/dL RDW Std Deviation (36.4-46.3) fL RDW Coeff of Inez (11.5-14.5) % Plt Count (130-400) K/uL MPV (7.4-10.4) fL Immature Gran % (Auto) % Neut % (Auto) % Lymph % (Auto) % [place] % (Auto) % Eos % (Auto) % Baso % (Auto) % Neut # (Auto) (1.4-6.5) K/uL Lymph # (Auto) (1.2-3.4) K/uL [place] # (Auto) (0.11-0.59) K/uL Eos # (Auto) (0-0.5) K/uL Baso # (Auto) (0-0.2) K/uL Immature Gran # (Auto) (0.00-0.02) K/uL Dohle Bodies Sample Site POC pH (7.35-7.45) POC pCO2 (35-46) mmHg POC pO2 (80-95) mmHg POC HCO3 (19-24) pepe/L POC Total CO2 (24-31) mmol/L POC Base Excess (-9-1.8) pepe/L ABG pH (Temp Correct) (7.35-7.45) ABG pCO2 (Temp Corrct (35-46) mmHg POC ABG pO2 at Pt Temp POC ABG O2 Sat (90-95) % Rajesh Test VBG pH (7.36-7.41) VBG pCO2 (38-50) mmHg VBG pO2 mmHg VBG HCO3 mmol/L VBG O2 Saturation % VBG Base Excess mEq/L Barometric Pressure mm/Hg O2 Delivery Device POC O2 Rate POC FiO2 % Tidal Volume PEEP POC Sodium (135-144) mmol/L Sodium (136-145) mmol/L POC Potassium (3.3-5.0) mmol/L Potassium (3.5-5.1) mmol/L Chloride (98-107) mmol/L Carbon Dioxide (21-32) mmol/L Anion Gap (3-11) BUN (7-18) mg/dl Creatinine (0.6-1.4) mg/dl Est Cr Clr Drug Dosing Est GFR ( Amer) ml/min Est GFR (Non-Af Amer) ml/min BUN/Creatinine Ratio (10-20) Glucose (70-99) mg/dl POC Glucose 185 H (70-99) mg/dl Estimat Average Glucose mg/dl Hemoglobin A1c (4.5-5.6) % Calcium (8.5-10.1) mg/dl Phosphorus (2.5-4.9) mg/dl Magnesium (1.8-2.4) mg/dl Urine Color Dark Yellow Urine Appearance Turbid A (Clear) Urine pH 8.0 H (4.5-7.5) Ur Specific [place] 1.024 (1.000-1.030) Urine Protein 2+ H (Negative) Urine Glucose (UA) Negative (Negative) Urine Ketones Negative (Negative) Urine Blood 2+ H (Negative) Urine Nitrite Negative (Negative) Urine Bilirubin Negative (Negative) Urine Urobilinogen Negative (Negative) Ur Leukocyte Esterase 3+ H (Negative) Urine WBC (Auto) >30 H (0-5) /hpf Urine RBC (Auto) 10-30 H (0-4) /hpf U Hyaline Cast (Auto) 1-5 (0-5) /lpf U Epithel Cells (Auto) 10-20 H (0-5) /lpf Urine Bacteria (Auto) 4+ H (Negative) Triple Phos Crystals Present A (None Prsent) Urine Yeast Not Reportable Nasal Screen MRSA (PCR) Negative (Negative) 10/12/20 Range/Units 08:50 WBC (4.8-10.8) K/uL RBC (4.7-6.1) M/uL Hgb (14.0-18.0) g/dL POC Hgb (14.0-18.0) g/dl Hct (42-52) % POC Hct (42-52) % MCV (80-100) fL MCH (25-34) pg MCHC (32-36) g/dL RDW Std Deviation (36.4-46.3) fL RDW Coeff of Inez (11.5-14.5) % Plt Count (130-400) K/uL MPV (7.4-10.4) fL Immature Gran % (Auto) % Neut % (Auto) % Lymph % (Auto) % [place] % (Auto) % Eos % (Auto) % Baso % (Auto) % Neut # (Auto) (1.4-6.5) K/uL Lymph # (Auto) (1.2-3.4) K/uL [place] # (Auto) (0.11-0.59) K/uL Eos # (Auto) (0-0.5) K/uL Baso # (Auto) (0-0.2) K/uL Immature Gran # (Auto) (0.00-0.02) K/uL Dohle Bodies Sample Site POC pH (7.35-7.45) POC pCO2 (35-46) mmHg POC pO2 (80-95) mmHg POC HCO3 (19-24) pepe/L POC Total CO2 (24-31) mmol/L POC Base Excess (-9-1.8) pepe/L ABG pH (Temp Correct) (7.35-7.45) ABG pCO2 (Temp Corrct (35-46) mmHg POC ABG pO2 at Pt Temp POC ABG O2 Sat (90-95) % Rajesh Test VBG pH 7.37 (7.36-7.41) VBG pCO2 61 H (38-50) mmHg VBG pO2 77 mmHg VBG HCO3 35 mmol/L VBG O2 Saturation 92.8 % VBG Base Excess 8.0 mEq/L Barometric Pressure 729.5 mm/Hg O2 Delivery Device POC O2 Rate POC FiO2 % Tidal Volume PEEP POC Sodium (135-144) mmol/L Sodium (136-145) mmol/L POC Potassium (3.3-5.0) mmol/L Potassium (3.5-5.1) mmol/L Chloride (98-107) mmol/L Carbon Dioxide (21-32) mmol/L Anion Gap (3-11) BUN (7-18) mg/dl Creatinine (0.6-1.4) mg/dl Est Cr Clr Drug Dosing Est GFR ( Amer) ml/min Est GFR (Non-Af Amer) ml/min BUN/Creatinine Ratio (10-20) Glucose (70-99) mg/dl POC Glucose (70-99) mg/dl Estimat Average Glucose mg/dl Hemoglobin A1c (4.5-5.6) % Calcium (8.5-10.1) mg/dl Phosphorus (2.5-4.9) mg/dl Magnesium (1.8-2.4) mg/dl Urine Color Urine Appearance (Clear) Urine pH (4.5-7.5) Ur Specific [place] (1.000-1.030) Urine Protein (Negative) Urine Glucose (UA) (Negative) Urine Ketones (Negative) Urine Blood (Negative) Urine Nitrite (Negative) Urine Bilirubin (Negative) Urine Urobilinogen (Negative) Ur Leukocyte Esterase (Negative) Urine WBC (Auto) (0-5) /hpf Urine RBC (Auto) (0-4) /hpf U Hyaline Cast (Auto) (0-5) /lpf U Epithel Cells (Auto) (0-5) /lpf Urine Bacteria (Auto) (Negative) Triple Phos Crystals (None Prsent) Urine Yeast Nasal Screen MRSA (PCR) (Negative) Resident Activity Tracking Resident Involvement: Resident Care Provided Care Provided: Adult Hospital Medicine (1) DM II (diabetes mellitus, type II), controlled Diabetes mellitus complication status: without complication Diabetes mellitus care home insulin use: without intermediate designer use Qualified Code(s): E11.9 - Type 2 diabetes mellitus without complications
[2020-10-13] MEDS ORDERED: PATIENT'S HEIGHT AND/OR WEIGHT NEEDED ONE (08:30)
[2020-10-13] MEDS ORDERED: PHARMACY GLYCEMIC MGMT CONSULT PRN (08:37)
[2020-10-13] MEDS ORDERED: INSULIN GLARGINE SOLOSTAR 100 UNITS/ML 3 ML PEN SC ONE ×2 (08:45→20:00)
--- NOTE | 2020-10-13 08:55 | Hospitalist Progress Note ---
Date of Service October 13, 2020 Assessment & Plan (1) Acute respiratory failure with hypoxia and hypercapnia: Plan: Endotracheal intubation 10/13/2020 Currently patient sedation has been titrated. He is currently on pressure support at 10/6 with an FiO2 of 25% Possible extubation later this morning 2nd to right-sided pneumonia and COPD exacerbation. Day #2 of Zosyn Bronc washings positive for gram-negative bacilli Does not appear decompensated from CHF standpoint. PE is in differential given poor mobility and recent right-sided periprosthetic femur fracture. Continue eliquis 2.5mg BID. COVID-19 negative, and reports he is fully vaccinated. (2) Pneumonia: Plan: Right-sided. Recent hospitalizations Sputum culture from bronchoscopy on day of admission is growing gram-negative bacilli Continue Zosyn and doxycycline MRSA screening is negative. COVID-19 testing negative. patient is fully vaccinated. (3) COPD exacerbation: Plan: Received 60 mg of Solu-Medrol in the emergency department and then started on 40 mg 4 times daily Begin to titrate steroids today Treat for pneumonia with gram-negative bacilli Currently intubated. Anticipate extubation possibly later today Continue Brio Ellipta (ICS/LABA) DuoNebs as needed (4) Hypokalemia: Plan: Potassium level today is 3.3 K riders 10 mEq IV in 100 cc of saline x4 ordered Magnesium level 2.2 Follow serial lab (5) Metabolic encephalopathy: Plan: 2nd to #1, #2, #3. Also with toxic component from IV ativan. Supportive care. Continue to monitor in the ICU (6) 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: Plan: RIGHT. Admitted to [facility] in September for such. Nonoperative management advised during that admission. Down the line once extubated and walking can ambulate as tolerated per 09/30/20 orthopedic progress note. DVT prophylaxis with apixaban 2.5 mg p.o. twice daily (7) Stage 3b chronic kidney disease: Plan: Creatinine remained stable and is 1.43 today Continue to follow fluid status Follow serial labs (8) Chronic atrial fibrillation: Plan: Continue beta-gonsalo Continue apixaban 2.5 mg p.o. twice daily Currently in the intensive care unit Continue to follow on telemetry once downgraded (9) Hypertension: Plan: Reinstitute antihypertensives as tolerated Currently on propofol for sedation Vital signs per protocol (10) GERD (gastroesophageal reflux disease): Plan: Continue famotidine (11) CAD (coronary artery disease): Plan: No evidence of ACS. Continue asa. Reinstitute metoprolol as tolerated EKG with paced rhythm and no evidence of ST changes (12) Chronic diastolic (congestive) heart failure: Plan: Continue furosemide as needed Follow ins and outs Currently +300 mL since admission Creatinine stable (13) DM II (diabetes mellitus, type II), controlled: Plan: ICU glycemic protocol. HbA1C 6.3% in August. Continue baseline insulin as well sliding scale (14) Status cardiac pacemaker: Plan: Paced rhythm on telemetry (15) Anemia: Plan: Hemoglobin 8.7 g/Hunter Continue to monitor daily labs and trend (16) Hyponatremia: Plan: Sodium 134 Patient's baseline is 130-131 Continue to follow serial labs (17) DVT prophylaxis: Plan: Eliquis for atrial fibrillation Patient should be on 5mg BID based on age, kidney function, and weight. Will need to investigate with [facility] why he is not on the higher dose. Plan: Possible extubation today Continue in ICU for now Admission and Anticipated Discharge Date Admission Date: October 12, 2020 Supervising Physician Co-Signing Physician Notes Attending Attestation - Chart reviewed in detail, care plan d/w PA Laci Savage. I agree w/ the lin components of his documentation. Patient extubated from the vent today. Had fevers this afternoon. Bronch culture with GNR. If fevers persist despite adequate antibiotics consider repeat COVID testing and/or [employer] panel. I updated the pt's by phone this evening. Ken Dillon MD Subjective Attending: Dr. Dillon Patient seen and examined at bedside in ICU room 104. Continues to be intubated. Recently changed to pressure support 11/11. He is very sensitive to sedation and did have some apneic periods. Sedation has been titrated off. Pat ient does open eyes to command. Deep inspiration per command. Able to lift head slightly off pillow. Breath sounds are now rhonchorous. Significant secretions able to be evacuated with deep suction. Patient does not answer questions for review of systems. Review of Systems Review of Systems: Unable to complete secondary to sedation from endotracheal intubation Physical Exam Physical Exam: GENERAL : No acute distress. Intubated. Sedation being titrated. EYES: No icterus, gaze conjugate. Pupils equal and round NOSE: No evidence of epistaxis. MOUTH: No lesions or candidiasis. Mucosa moist. Endotracheal tube in place and secure. Orogastric tube in place and secure. NECK: Supple. LUNGS: Diffuse rhonchi in all lung quarles. HEART: Regular, rate controlled ABDOMEN: Soft, NT, ND, BS Present EXTREMITIES: No LE edema, pedal pulses intact and equal bilaterally. Restraints in place as sedation has been titrated. NEURO: Opens eyes to commands. Blinks eyes to command. Able lift head off bed momentarily. Continues to be sedated for endotracheal intubation. Sedation being titrated. Results & Data Results & Data ([facility]) Vital Signs (Past 12 Hours) Vital Signs Temp Pulse Pulse Resp BP Pulse Ox 10/13/20 08:11 70 16 95 10/13/20 06:18 36.5 C 70 117/61 94 10/13/20 06:10 36.4 C L 70 124/65 94 10/13/20 05:33 36.3 C L 70 130/66 95 10/13/20 04:33 36.1 C L 70 120/62 93 10/13/20 03:33 36.0 C L 70 120/61 94 10/13/20 03:11 70 18 96 10/13/20 02:33 35.9 C L 70 114/58 L 91 10/13/20 01:34 70 26 H 94 10/13/20 01:33 35.8 C L 70 130/66 94 10/13/20 00:33 35.8 C L 70 125/65 94 10/13/20 00:00 70 10/12/20 23:33 36.0 C L 70 125/65 94 10/12/20 22:33 36.1 C L 70 120/63 94 10/12/20 22:07 70 18 96 10/12/20 21:33 36.3 C L 70 130/67 96 Laboratory Results 10/13/20 05:02 10/13/20 05:02 Microbiology 10/12/20 07:10 Aerobic Blood Culture - Preliminary Blood No growth in Aerobic bottle after 24 hours. 10/12/20 12:37 Urine Culture - Preliminary Urine,Straight Cath Gram negative bacilli 10/12/20 11:29 Gram Stain - Final Bronch Wash,Right Middle Lobe Bronchial Culture - Preliminary Gram negative bacilli 10/12/20 06:12 Aerobic Blood Culture - Preliminary Blood No growth in Aerobic bottle after 24 hours. Anaerobic Blood Culture - Preliminary No growth in Anaerobic bottle after 24 hours. 10/12/20 11:29 Fungal Smear - Final Bronch Wash,Right Middle Lobe Diagnostic Findings No additional radiographic images. Medications Administered Current Medications Acetaminophen (Acetaminophen Susp 325 Mg/10.15 Ml Udc) 650 mg PO Q6H PRN PRN Reason: Fever Stop: 11/11/20 14:55 Albuterol (Albut/Ipratrop 3mg/0.5mg Neb 3 Ml Vial) 3 ml INH Q6R [facility] Stop: 11/11/20 12:59 Last Admin: 10/13/20 08:00 Dose: 3 ml Documented by: Allopurinol (Allopurinol 300 Mg Tab) 300 mg PO QAM [facility] Stop: 11/12/20 08:59 Apixaban (Apixaban 2.5 Mg Tab) 2.5 mg PO BID [facility] Stop: 11/11/20 20:59 Last Admin: 10/12/20 20:38 Dose: 2.5 mg Documented by: Aspirin (Aspirin 81 Mg Ectab) 81 mg PO QAM [facility] Stop: 11/12/20 08:59 Escitalopram Oxalate (Escitalopram Oxalate 10 Mg Tab) 5 mg PO QDD [facility] Stop: 11/11/20 16:29 Last Admin: 10/12/20 16:08 Dose: 5 mg Documented by: Fentanyl Citrate (Fentanyl Bolus From Bag) 50 mcg IV Q60M PRN PRN Reason: Pain or Agitation Stop: 10/26/20 14:50 Last Admin: 10/13/20 06:12 Dose: 50 mcg Documented by: Fluticasone Propionate (Fluticasone Propionate Na Spr 16 Gm Btl) 2 sprays NA QAM [facility] Stop: 11/12/20 08:59 Fluticasone/Vilanterol (Fluticasone/Vilanterol 100/25mcg 14 Puffs/Inhaler) 1 puffs INH PM [facility] Stop: 11/11/20 20:59 Last Admin: 10/12/20 22:38 Dose: Not Given Documented by: Propofol (Diprivan) 1,000 mg in 100 mls @ 6.378 mls/hr IV .[id number] JAQUELINE; Protocol Stop: 10/15/20 09:29 Last Titration: 10/13/20 08:05 Dose: 10 mcg/kg/min, 6.4 mls/hr Documented by: Famotidine 20 mg/ Syringe 5 mls @ 2.5 mls/min IV Q12 [facility] Stop: 11/11/20 10:56 Last Admin: 10/13/20 07:30 Dose: 2.5 mls/min Documented by: Piperacillin Sod/Tazobactam (Sod 4.5 gm/ Dextrose) 120 mls @ 30 mls/hr IV Q8H [facility]; Protocol Stop: 10/19/20 11:59 Last Infusion: 10/13/20 07:50 Dose: Infused Documented by: Doxycycline Hyclate 100 mg/ (Dextrose) 110 mls @ 50 mls/hr IV Q12H [facility] Stop: 10/19/20 19:59 Last Admin: 10/13/20 07:29 Dose: 50 mls/hr Documented by: Furosemide 40 mg/ Syringe 4 mls @ 4 mls/min IV BID [facility] Stop: 11/11/20 20:59 Last Admin: 10/12/20 20:38 Dose: 4 mls/min Documented by: Fentanyl Citrate (Fentanyl Drip) 1,250 mcg in 250 mls @ 0 mls/hr IV .Q0M [facility]; Protocol Stop: 10/26/20 14:59 Last Titration: 10/13/20 08:05 Dose: 0 mcg/hr, 0 mls/hr Documented by: Methylprednisolone 40 mg/ (Syringe) 0.64 mls @ 1.5 mls/min IV Q6H [facility] Stop: 11/11/20 15:14 Last Admin: 10/13/20 03:45 Dose: 1.5 mls/min Documented by: Potassium Chloride (K Cruz / Wtr) 10 meq in 100 mls @ 100 mls/hr IV Q1H [facility] Stop: 10/13/20 09:54 Last Admin: 10/13/20 08:22 Dose: 100 mls/hr Documented by: Insulin Aspart (Insulin Aspart 100 Units/Ml 3 Ml Pen) 0 units SC Q4 [facility]; Protocol Stop: 11/12/20 08:44 Last Admin: 10/13/20 09:00 Dose: 2 units Documented by: Metoprolol Tartrate (Metoprolol Tartrate 25 Mg Tab) 12.5 mg PO BID [facility] Stop: 11/11/20 20:59 Last Admin: 10/12/20 20:37 Dose: 12.5 mg Documented by: Simvastatin (Simvastatin 10 Mg Tab) 10 mg PO HS [facility] Stop: 11/11/20 20:59 Last Admin: 10/12/20 20:37 Dose: 10 mg Documented by: Travoprost (Travoprost Z 0.004% Oph Soln 2.5 Ml Btl) 1 drops OPB HS [facility] Stop: 11/11/20 20:59 Last Admin: 10/12/20 20:37 Dose: 1 drops Documented by: PG Care Time/CCT Total # of Minutes Spent Total Time Spent with Patient: Total time spent is greater than 50% in coordination of care (as documented) at patient's floor/unit and/or counseling patient: Coding Level of Care Code 09009 Subseq Hosp Care Lvl 3 Diagnoses Acute respiratory failure with hypoxia and hypercapnia J96.01; J96.02 Pneumonia J18.9 COPD exacerbation J44.1 Metabolic encephalopathy G93.41 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 M97.01XA Encounter type: initial encounter Laterality: right Stage 3b chronic kidney disease N18.32 Chronic atrial fibrillation I48.20 Hypertension I10 Hypertension type: essential hypertension GERD (gastroesophageal reflux disease) K21.9 CAD (coronary artery disease) I25.10 Chronic diastolic (congestive) heart failure I50.32 DM II (diabetes mellitus, type II), controlled E11.9 Diabetes mellitus complication status: without complication Diabetes mellitus buttermaker helper insulin use: without buttermaker helper use Status cardiac pacemaker Z95.0 Anemia D64.9 Hyponatremia E87.1 DVT prophylaxis Z29.9 Hypokalemia E87.6 Time Spent (min) 30 (1) 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
[2020-10-13] MEDS ORDERED: ASPIRIN 81 MG ECTAB PO SCH (09:00)
[2020-10-13] MEDS: INSULIN ASPART 100 UNITS/ML 3 ML PEN SC SCH ×4 (09:00→19:55)
[2020-10-13 09:10] LABS: Hemoglobin 8.7 g/dL (14.0-18.0)
--- NOTE | 2020-10-13 09:24 | XRay Report ---
XR chest 1V portable HISTORY: 80 years-old Male f/u acute respiratory failure COMPARISON: Chest radiograph 10/12/2020 TECHNIQUE: Portable AP view of the chest FINDINGS: Endotracheal tube overlies the midline, 2.7 cm superior to the bisi. Enteric tube courses below the diaphragm with distal tip outside the [id number]. Cardiomegaly with prior median sternotomy and C ABG. Left subclavian pacer. No pneumothorax. The study is limited secondary to positioning. Pulmonary vascular congestion with interstitial coarsening persists. Small layering pleural effusions with bib asilar densities. Degenerative changes of the shoulders and spine. IMPRESSION: 1. Lines and tubes as above. 2. Cardiomegaly with persistent pulmonary edema. 3. Layering pleural effusions with unchanged bibasilar opacities. ACT 112: Negative or not required by law. The above report was generated using voice recognition software. It may contain grammatical, syntax o r spelling errors. Electronically signed by: Esau Allen M.D. 10/13/2020 9:22 AM
[2020-10-13] MEDS ORDERED: ALBUT/IPRATROP 3MG/0.5MG NEB 3 ML VIAL INH PRN (09:37)
--- NOTE | 2020-10-13 09:38 | Billing Data ---
Date of Service October 13, 2020 Coding Level of Care Code Critical Care 1st - mins
[2020-10-13] MEDS: FUROSEMIDE 40 MG in SYRINGE 0 ML IV SCH ×2 (10:12→20:03)
[2020-10-13] MEDS: FLUTICASONE PROPIONATE NA SPR 16 GM BTL SCH (10:13)
--- NOTE | 2020-10-13 10:29 | Pharmacy Report ---
Pharmacy Glycemic Short Note 2 - Date of Service October 13, 2020 - Glycemic Short BSG Results (Last 24 hours): 10/12/20 10/13/20 10/13/20 17:46 00:26 05:02 Glucose 178 H POC Glucose 185 H 194 H 10/13/20 10/13/20 05:36 08:57 Glucose POC Glucose 198 H 186 H OUTPATIENT ANTIDIABETIC REGIMEN: * N/A * HbA1c 5.9% on 10/13/20 ASSESSMENT: * 80 yo M admitted to ICU on 10/12 for acute resp failure/COPD exacerbation. BSG's now elevated 2nd steroids (although plan to taper starting tomorrow. Pharmacy glycemic consult initiated 2nd ICU protocol parameters * BSG's ranged 178-198 mg/dL for the last 4 checks - only mildly hyperglycemic considering ICU goal range 140-180 mg/dL * Will initiate low-dose Lantus, given hyperglycemia is only mild and patient is NPO * Will initiate Novolog between moderate to severe stress/weight-based estimate PLAN FOR INPATIENT GLYCEMIC CONTROL: * Basal insulin * Lantus 15 units SQ x1. Additional 10 units tonight if BSG >180 mg/dL * Bolus insulin * NovoLog per scale ACHS or Q6hrs while NPO * Goal Range: Low 120 mg/dL - High 160 mg/dL * Correction Factor: 20 mg/dL/unit * Nutritional / Prandial insulin per carb ratio of 1 unit per 6 grams CHO consumed PLAN FOR DISCHARGE: * Follow-up as outpatient regarding management of pre-diabetes (per HbA1c)
[2020-10-13] MEDS ORDERED: cefTRIAXone SODIUM 2,000 MG in DEXTROSE 5% 50 ML IV SCH (12:00)
--- NOTE | 2020-10-13 14:58 | Billing Data ---
Date of Service October 12, 2020 Coding Level of Care Code Critical Care 03 07- mins
--- NOTE | 2020-10-13 15:45 | XRay Report ---
KUB HISTORY: feeding tube placement COMPARISON: KUB 09/30/2020 FINDINGS: Nonobstructive bowel gas pattern. Cardiomegaly with prior median sternotomy and bibasilar o pacities. Cardiac pacer. Status post placement of a feeding tube distal tip in the expected location of the proximal stomach. Partially imaged gas-filled loops of bowel within the midabdomen. No urolith identified. No acute fracture. Degenerative changes of the spine. IMPRESSION: Distal tip of feeding tube projects over the proximal stomach. ACT 112: Negative or not required by law. The above report was generated using voice recognition software. It may contain grammatical, syntax o r spelling errors. Electronically signed by: Esau Allen M.D. 10/13/2020 3:43 PM
[2020-10-13] MEDS: allopurinoL 300 MG TAB PO SCH ×2 (16:24→16:39)
[2020-10-13] MEDS: METOPROLOL TARTRATE 25 MG TAB PO SCH ×3 (16:24→21:48)
[2020-10-13] MEDS: APIXABAN 2.5 MG TAB PO SCH ×3 (16:24→21:48)
[2020-10-13] MEDS ORDERED: Nursing to Pharmacy Communication SCH (16:30)
[2020-10-13] MEDS: ESCITALOPRAM OXALATE 10 MG TAB PO SCH (17:10)
[2020-10-13] MEDS: ESCITALOPRAM OXALATE ORAL SOLN 5 MG/5 ML UDP PO SCH (17:45)
--- NOTE | 2020-10-13 18:32 | XRay Report ---
KUB CLINICAL HISTORY: Feeding Tube Placement COMPARISON STUDY: KUB performed earlier today. FINDINGS: Incidental note is made of median sternotomy wires, mediastinal surgical clips and a partia lly visualized left subclavian biventricular pacer. The tip of the feeding tube is not well visualize d on this exam but is probably within the distal stomach. IMPRESSION: Tip of feeding tube not well visualized, at the lower aspect of this image, but likely w ithin the distal stomach. ACT 112: Negative or not required by law. Electronically signed by: Sergio Pollack M.D. 10/13/2020 6:31 PM
[2020-10-13] MEDS: TRAVOPROST Z 0.004% OPH SOLN 2.5 ML BTL OPB SCH (20:03)
[2020-10-13 21:47] LABS: iSTAT Allen Test Pass; iSTAT Art Bld Gas pCO2 Correct 44 mmHg (35-46); iSTAT Art Bld Gas pH Corrected 7.483 (7.35-7.45); iSTAT Arterial Blood Gas HCO3 33 meg/L (19-24); iSTAT Arterial Blood Gas pCO2 43 mmHg (35-46); iSTAT Arterial Blood Gas pH 7.49 (7.35-7.45); iSTAT Arterial Blood Gas pO2 69 mmHg (80-95); iSTAT Arterial Blood Gas pO2 C 73; iSTAT Carbon Dioxide 34 mmol/L (24-31); iSTAT Hematocrit 30 % (42-52); iSTAT Hemoglobin 10.2 g/dl (14.0-18.0); iSTAT Potassium 3.8 mmol/L (3.3-5.0); iSTAT Site L Radial; iSTAT Sodium 142 mmol/L (135-144)
[2020-10-13] MEDS: SIMVASTATIN 10 MG TAB NG SCH (21:48)
[2020-10-13] MEDS: FLUTICASONE/VILANTEROL 100/25MCG 14 PUFFS/INHALER INH SCH (22:07)
[2020-10-14] MEDS: INSULIN ASPART 100 UNITS/ML 3 ML PEN SC SCH ×5 (00:47→21:40)
[2020-10-14] MEDS: methylPREDNISolone 40 MG in SYRINGE 0 ML IV SCH ×2 (03:58→07:28)
[2020-10-14 05:05] LABS: Basophils # (auto) 0.01 K/uL (0-0.2); Basophils % (auto) 0.1 %; Hematocrit (blood only) 28.4 % (42-52); Hemoglobin 9.1 g/dL (14.0-18.0); Immature Granulocytes # (auto) 0.02 K/uL (0.00-0.02); Immature Granulocytes % (auto) 0.2 %; Lymphocytes # (auto) 0.37 K/uL (1.2-3.4); Lymphocytes % (auto) 4.1 %; Mean Corpuscular Hemoglobin 31.3 pg (25-34); Mean Corpuscular Volume 97.6 fL (80-100); Mean Platelet Volume 10.2 fL (7.4-10.4); Monocytes # (auto) 0.26 K/uL (0.11-0.59); Monocytes % (auto) 2.9 %; Neutrophils # (auto) 8.46 K/uL (1.4-6.5); Neutrophils % (auto) 92.7 %; Nucleated RBC # (auto) 0.02 K/uL (0-0); Nucleated RBC % (auto) 0.2 %; Platelet Count 335 K/uL (130-400); RDW Coefficient of Variation 16.8 % (11.5-14.5); RDW Standard Deviation 58.5 fL (36.4-46.3); Red Blood Count 2.91 M/uL (4.7-6.1); White Blood Count 9.12 K/uL (4.8-10.8)
[2020-10-14 05:35] LABS: BUN Creatinine Ratio 33.7 (10-20); Calcium 9.6 mg/dl (8.5-10.1); Creatinine Clr Calc Pharmacy 41.8 ml/min; Est GFR (African American) 44.8 ml/min; Est GFR (Non-African American) 38.7 ml/min; Magnesium 2.4 mg/dl (1.8-2.4); Potassium 3.6 mmol/L (3.5-5.1)
[2020-10-14 05:46] LABS: Phosphorus 3.9 mg/dl (2.5-4.9)
[2020-10-14] MEDS: DOXYCYCLINE HYCLATE 100 MG in DEXTROSE 5% 100 ML IV SCH (07:25)
[2020-10-14] MEDS: FAMOTIDINE 20 MG in SYRINGE 3 ML IV SCH ×2 (07:27→22:38)
[2020-10-14] MEDS: FUROSEMIDE 40 MG in SYRINGE 0 ML IV SCH ×2 (07:28→22:38)
[2020-10-14] MEDS: FLUTICASONE PROPIONATE NA SPR 16 GM BTL SCH (07:28)
--- NOTE | 2020-10-14 07:31 | Critical Care Progress Note ---
Date of Service October 14, 2020 Assessment & Plan (1) Acute respiratory failure with hypoxia and hypercapnia: Plan: Reason critically ill: 80 year old male with significant PMHx including chronic atrial fibrillation on anticoagulation, type 2 DM, CKD 3a, CAD s/p CABG and stent, HTN, HLD, GERD, anxiety, diastolic CHF, severe COPD, SANDOR, depression, and recent right periprosthetic hip fx admitted for acute respiratory failure with hypoxia and hypercapnia secondary to R sided pneumonia and COPD exacerbation. Neuro: CAM ICU negative Metabolic encephalopathy secondary to right sided pneumonia, and COPD exacerbation, resolved - Will continue to monitor Cardiac/Vascular: Chronic atrial fibrillation - Currently paced a-fib with rate of 70 - Will continue metoprolol at 12.5mg po BID - Continue Eliquis 2.5mg po BID; check prior cardiology records, ? change to Eliquis 5mg po BID - Continuous monitoring on telemetry Hyperlipidemia - continue home simvastatin Respiratory: R sided pneumonia and COPD exacerbation - COVID 19 negative, and notes he is fully vaccinated - Intubated 10/12. Patient able to be extubated 10/13 - Continue with BiPAP qHS. Patient may use home machine. - Pneumonia: bronch wash cultures currently growing Pseudomonas aeruginosa and haemophilus influenzae. Discontinue ceftriaxone - Start patient on levaquin x7 days secondary to sensitivities - COPD: Received solumedrol 60mg IV in ER. Received solumedrol 40mg IV q6h. Will discontinue solumedrol. - Goal to transition to prednisone po, however as patient is still NPO due to failing swallow study, will start patient on 6mg Decadron IV daily x5 days; if swallowing is further evaluation and patient can tolerate po, could switch to 40mg prednisone daily for a total of 5 days steroid therapy. - s/p duoneb on admission. Continue duoneb tx prn - Continue home Lasix of 40mg BID. Encourage negative fluid balance. - Noted that on last hospitalization, Lasix was increased to 80mg BID (from 40mg BID) but at rehab was decreased again to 40mg BID. Will continue to monitor. GI/Nutrition: - No acute issues. - GERD, continue famotidine Renal/Lytes: - Stage 3b CKD. Cr on admission was 1.3 --> 1.43 --> increased to 1.63 today - Avoid nephrotoxic agents - Continue electrolyte replacement per ICU replacement protocol Genitourinary: - Curtis catheter in place. Strict Is/Os - UA/cx currently growing gram (-) bacilli. Awaiting speciation. Endo: - Hx of DM. Continue with Novolog. - Continue ICU hyperglycemic protocol Heme: History of chronic anemia. - H&H 9.1/28.3 on admission. H&H stable. - Baseline Hgb 8-9. Will continue to monitor. - No signs of bleeding. ID: - Febrile, Tmax 38.3, on admission. Now afebrile. - Will continue abx therapy with levaquin as noted above. - MRSA nares negative. - Bronch wash cx growing Pseudomonas aeruginosa and haemophilus influenzae - Urine cx with gram neg bacilli; awaiting further speciation Ortho: 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, right - Continue nonoperative management Lines/IV Access: PIV DVT Prophylaxis: home Eliquis GI Prophylaxis: Famotidine Plan to downgrade out of ICU to tele status. (2) Pneumonia: (3) Metabolic encephalopathy: (4) COPD exacerbation: (5) Anemia: (6) Stage 3b chronic kidney disease: (7) Chronic atrial fibrillation: (8) GERD (gastroesophageal reflux disease): (9) CAD (coronary artery disease): (10) DM II (diabetes mellitus, type II), controlled: Admission and Anticipated Discharge Date Admission Date: October 12, 2020 Supervising Physician Co-Signing Physician Notes Dr. Mcrae was resident physician during care of patient. I separately evaluated patient for lin portions of the history and the exam. I was present during the critical portion of medical decision making, and I discussed the case with the resident. I generally agree with the findings and plan. Patient was successfully liberated from ventilator yesterday, on appropriate antibiotics at this time still awaiting speciation will be stable for downgrade out of ICU. Switch from ceftriaxone to single agent Levaquin for 7 days duration therapy starting from today Subjective Patient on CPAP overnight and required 1:1 sitter due to agitation; sitter has since been discontinued and patient is calm and cooperative. He is now on supplemental O2 via NC at 3L and maintaining O2 sat > 92%. Patient with no specific complaints or concerns. Denies CP, SOB, cough, abd pain, nausea, vomiting, or leg pain. Review of Systems Constitutional: no fever and no chills Eyes: no problem reported Ear, Nose, Mouth, Throat: no problem reported Respiratory: no dyspnea Cardiovascular: no chest pain Gastrointestinal: no abdominal pain, no nausea and no vomiting Genitourinary: no problem reported Musculoskeletal: no problem reported Neurologic: no dizziness and no headache(s) Physical Exam Physical Exam: GENERAL: Awake and alert. No acute distress. Elderly male otherwise appears well developed and well nourished. Vital signs reviewed as above. EYES: EOMI. Anicteric sclerae. HENT: Moist mucous membranes. On NC at 3L. RESPIRATORY: Audible cough with sputum production. Coarse rhonci bilaterally. CARDIOVASCULAR: Distant heart sounds but regular rate and rhythm. ABDOMEN: Soft and non-distended. Normal bowel sounds. EXTREMITIES: 1-2+ BLE edema to mid gorman. SKIN: Warm, dry. NEUROLOGIC: A/O x3. Cooperative. No focal neurological deficits. Results & Data Results & Data ([facility]) Vital Signs (Past 12 Hours) Vital Signs Temp Pulse Resp BP Pulse Ox 10/14/20 05:33 36.9 C 70 23 169/89 H 95 10/14/20 04:33 37.0 C 70 27 H 157/98 H 93 10/14/20 03:33 37.0 C 70 25 H 166/91 H 94 10/14/20 02:33 37.0 C 70 24 160/88 H 96 10/14/20 01:33 37.1 C 70 28 H 161/92 H 94 10/14/20 00:33 37.2 C 70 25 H 162/88 H 99 10/13/20 23:33 37.4 C 70 33 H 152/94 H 94 10/13/20 22:33 37.6 C H 70 27 H 165/88 H 90 10/13/20 22:19 70 30 H 91 10/13/20 21:51 37.7 C H 70 30 H 157/80 H 92 10/13/20 21:33 37.7 C H 70 30 H 147/114 H 92 10/13/20 21:05 70 30 H 94 10/13/20 21:03 37.7 C H 70 23 173/80 H 94 10/13/20 20:41 37.7 C H 70 25 H 171/107 H 96 10/13/20 20:34 37.7 C H 70 29 H 168/100 H 93 10/13/20 19:33 37.8 C H 70 21 162/91 H 96 Laboratory Results 10/14/20 10/14/20 10/14/20 Range/Units 07:14 04:58 04:58 WBC 9.12 (4.8-10.8) K/uL RBC 2.91 L (4.7-6.1) M/uL Hgb 9.1 L (14.0-18.0) g/dL POC Hgb (14.0-18.0) g/dl Hct 28.4 L (42-52) % POC Hct (42-52) % MCV 97.6 (80-100) fL MCH 31.3 (25-34) pg MCHC 32.0 (32-36) g/dL RDW Std Deviation 58.5 H (36.4-46.3) fL RDW Coeff of Inez 16.8 H (11.5-14.5) % Plt Count 335 (130-400) K/uL MPV 10.2 (7.4-10.4) fL Immature Gran % (Auto) 0.2 % Neut % (Auto) 92.7 % Lymph % (Auto) 4.1 % [place] % (Auto) 2.9 % Eos % (Auto) 0.0 % Baso % (Auto) 0.1 % Neut # (Auto) 8.46 H (1.4-6.5) K/uL Lymph # (Auto) 0.37 L (1.2-3.4) K/uL [place] # (Auto) 0.26 (0.11-0.59) K/uL Eos # (Auto) 0.00 (0-0.5) K/uL Baso # (Auto) 0.01 (0-0.2) K/uL Immature Gran # (Auto) 0.02 (0.00-0.02) K/uL Absolute Nucleated RBC 0.02 H (0-0) K/uL Nucleated RBC % (auto) 0.2 % Sample Site POC pH (7.35-7.45) POC pCO2 (35-46) mmHg POC pO2 (80-95) mmHg POC HCO3 (19-24) pepe/L POC Total CO2 (24-31) mmol/L POC Base Excess (-9-1.8) pepe/L ABG pH (Temp Correct) (7.35-7.45) ABG pCO2 (Temp Corrct (35-46) mmHg POC ABG pO2 at Pt Temp POC ABG O2 Sat (90-95) % Rajesh Test O2 Delivery Device POC O2 Rate IPAP POC Sodium (135-144) mmol/L Sodium 138 (136-145) mmol/L POC Potassium (3.3-5.0) mmol/L Potassium 3.6 (3.5-5.1) mmol/L Chloride 102 (98-107) mmol/L Carbon Dioxide 29 (21-32) mmol/L Anion Gap 7.0 (3-11) BUN 55 H (7-18) mg/dl Creatinine 1.63 H (0.6-1.4) mg/dl Est Cr Clr Drug Dosing 41.8 ml/min Est GFR ( Amer) 44.8 ml/min Est GFR (Non-Af Amer) 38.7 ml/min BUN/Creatinine Ratio 33.7 H (10-20) Glucose 135 H (70-99) mg/dl POC Glucose 143 H (70-99) mg/dl Calcium 9.6 (8.5-10.1) mg/dl Phosphorus 3.9 (2.5-4.9) mg/dl Magnesium 2.4 (1.8-2.4) mg/dl 10/14/20 10/14/20 10/13/20 Range/Units 03:57 00:40 21:33 WBC (4.8-10.8) K/uL RBC (4.7-6.1) M/uL Hgb (14.0-18.0) g/dL POC Hgb 10.2 L (14.0-18.0) g/dl Hct (42-52) % POC Hct 30 L (42-52) % MCV (80-100) fL MCH (25-34) pg MCHC (32-36) g/dL RDW Std Deviation (36.4-46.3) fL RDW Coeff of Inez (11.5-14.5) % Plt Count (130-400) K/uL MPV (7.4-10.4) fL Immature Gran % (Auto) % Neut % (Auto) % Lymph % (Auto) % [place] % (Auto) % Eos % (Auto) % Baso % (Auto) % Neut # (Auto) (1.4-6.5) K/uL Lymph # (Auto) (1.2-3.4) K/uL [place] # (Auto) (0.11-0.59) K/uL Eos # (Auto) (0-0.5) K/uL Baso # (Auto) (0-0.2) K/uL Immature Gran # (Auto) (0.00-0.02) K/uL Absolute Nucleated RBC (0-0) K/uL Nucleated RBC % (auto) % Sample Site L Radial POC pH 7.49 H (7.35-7.45) POC pCO2 43 (35-46) mmHg POC pO2 69 L (80-95) mmHg POC HCO3 33 H (19-24) pepe/L POC Total CO2 34 H (24-31) mmol/L POC Base Excess 10.0 H (-9-1.8) pepe/L ABG pH (Temp Correct) 7.483 H (7.35-7.45) ABG pCO2 (Temp Corrct 44 (35-46) mmHg POC ABG pO2 at Pt Temp 73 POC ABG O2 Sat 95.0 (90-95) % Rajesh Test Pass O2 Delivery Device BIPAP POC O2 Rate 16 IPAP 10 POC Sodium 142 (135-144) mmol/L Sodium (136-145) mmol/L POC Potassium 3.8 (3.3-5.0) mmol/L Potassium (3.5-5.1) mmol/L Chloride (98-107) mmol/L Carbon Dioxide (21-32) mmol/L Anion Gap (3-11) BUN (7-18) mg/dl Creatinine (0.6-1.4) mg/dl Est Cr Clr Drug Dosing ml/min Est GFR ( Amer) ml/min Est GFR (Non-Af Amer) ml/min BUN/Creatinine Ratio (10-20) Glucose (70-99) mg/dl POC Glucose 154 H 147 H (70-99) mg/dl Calcium (8.5-10.1) mg/dl Phosphorus (2.5-4.9) mg/dl Magnesium (1.8-2.4) mg/dl 10/13/20 10/13/20 10/13/20 Range/Units 19:54 16:27 10:59 WBC (4.8-10.8) K/uL RBC (4.7-6.1) M/uL Hgb (14.0-18.0) g/dL POC Hgb (14.0-18.0) g/dl Hct (42-52) % POC Hct (42-52) % MCV (80-100) fL MCH (25-34) pg MCHC (32-36) g/dL RDW Std Deviation (36.4-46.3) fL RDW Coeff of Inez (11.5-14.5) % Plt Count (130-400) K/uL MPV (7.4-10.4) fL Immature Gran % (Auto) % Neut % (Auto) % Lymph % (Auto) % [place] % (Auto) % Eos % (Auto) % Baso % (Auto) % Neut # (Auto) (1.4-6.5) K/uL Lymph # (Auto) (1.2-3.4) K/uL [place] # (Auto) (0.11-0.59) K/uL Eos # (Auto) (0-0.5) K/uL Baso # (Auto) (0-0.2) K/uL Immature Gran # (Auto) (0.00-0.02) K/uL Absolute Nucleated RBC (0-0) K/uL Nucleated RBC % (auto) % Sample Site POC pH (7.35-7.45) POC pCO2 (35-46) mmHg POC pO2 (80-95) mmHg POC HCO3 (19-24) pepe/L POC Total CO2 (24-31) mmol/L POC Base Excess (-9-1.8) pepe/L ABG pH (Temp Correct) (7.35-7.45) ABG pCO2 (Temp Corrct (35-46) mmHg POC ABG pO2 at Pt Temp POC ABG O2 Sat (90-95) % Rajesh Test O2 Delivery Device POC O2 Rate IPAP POC Sodium (135-144) mmol/L Sodium (136-145) mmol/L POC Potassium (3.3-5.0) mmol/L Potassium (3.5-5.1) mmol/L Chloride (98-107) mmol/L Carbon Dioxide (21-32) mmol/L Anion Gap (3-11) BUN (7-18) mg/dl Creatinine (0.6-1.4) mg/dl Est Cr Clr Drug Dosing ml/min Est GFR ( Amer) ml/min Est GFR (Non-Af Amer) ml/min BUN/Creatinine Ratio (10-20) Glucose (70-99) mg/dl POC Glucose 141 H 149 H 176 H (70-99) mg/dl Calcium (8.5-10.1) mg/dl Phosphorus (2.5-4.9) mg/dl Magnesium (1.8-2.4) mg/dl Resident Activity Tracking Resident Involvement: Resident Care Provided Care Provided: Adult Hospital Medicine (1) DM II (diabetes mellitus, type II), controlled Diabetes mellitus complication status: without complication Diabetes mellitus terminal press operator insulin use: without terminal press operator use Qualified Code(s): E11.9 - Type 2 diabetes mellitus without complications
--- NOTE | 2020-10-14 07:37 | Billing Data ---
Date of Service October 14, 2020 Coding Level of Care Code 75096 Subseq Hosp Care Lvl 3
[2020-10-14] MEDS ORDERED: INSULIN GLARGINE SOLOSTAR 100 UNITS/ML 3 ML PEN SC ONE (08:15)
[2020-10-14] MEDS: allopurinoL 300 MG TAB NG SCH (09:07)
[2020-10-14] MEDS: APIXABAN 2.5 MG TAB PO SCH ×2 (09:07→20:35)
[2020-10-14] MEDS: ASPIRIN 81 MG CHEW NG SCH (09:08)
[2020-10-14] MEDS: METOPROLOL TARTRATE 25 MG TAB PO SCH ×2 (09:08→20:33)
--- NOTE | 2020-10-14 09:20 | XRay Report ---
SINGLE VIEW CHEST CLINICAL HISTORY: Respiratory failure. FINDINGS: An AP, portable, upright chest radiograph is compared to study dated 10/13/2020 and correlate d with chest CT dated 12/06/2016. The examination is degraded by portable technique and patient rotat ion. Endotracheal and enteric tubes have been removed The patient is status post midline sternotomy. Epicardial pacing leads are noted. A 2-lead cardiac pacemaker is unchanged in position. The heart is enlarged noting atherosclerotic calcification of the thoracic aorta. Pulmonary vascular congestion pe rsists. Scattered bilateral airspace opacities are similar to previous. Scarring/atelectasis is again seen at both lung bases. Small pleural effusions are suspected. No pneumothorax is identified. The s keletal structures are osteopenic. The bony thorax is grossly intact. IMPRESSION: 1. Endotracheal and enteric tubes have been removed. 2. Cardiomegaly and cardiac pacemaker. Pulmonary vascular congestion persists. 3. Scattered bilateral airspace opacities are similar to yesterday. This could represent mild pulmona ry edema versus an infectious/inflammatory pneumonitis. 4. Suspect small pleural effusions. ACT 112: Negative or not required by law. Electronically signed by: Laci Steele M.D. 10/14/2020 9:19 AM
[2020-10-14] MEDS: levoFLOXacin/D5W 750 MG/150 ML BAG IV SCH (10:06)
[2020-10-14] MEDS ORDERED: metroNIDAZOLE 500 MG/100 ML BAG IV SCH (10:30)
[2020-10-14] MEDS: dexAMETHasone 6 MG in SYRINGE 0 ML IV SCH (11:22)
--- NOTE | 2020-10-14 11:59 | Hospitalist Progress Note ---
Date of Service October 14, 2020 Assessment & Plan (1) Acute respiratory failure with hypoxia and hypercapnia: Plan: Successfully extubated 10/13/2020 2nd to right-sided pneumonia and COPD exacerbation. Received 2 days of Zosyn Antibiotics changed to levofloxacin this morning to cover Pseudomonas Bronc washings positive for Pseudomonas Aeruginosa Does not appear decompensated from CHF standpoint. PE is in differential given poor mobility and recent right-sided periprosthetic femur fracture. Continue eliquis 2.5mg BID. COVID-19 negative, and reports he is fully vaccinated. Continue supplemental oxygen to maintain SaO2 between 88 and 92% Previous history of hypercapnia but no hypercapnia this admission. ABG pH is alkalotic Continue CPAP at home levels (2) Pneumonia: Plan: Right-sided. Recent hospitalizations Sputum culture from bronchoscopy on day of admission is growing Pseudomonas Aeruginosa Discontinue continue Zosyn and doxycycline and start levofloxacin 750 mg p.o. every other day MRSA screening is negative. Titrate supplemental oxygen as tolerated COVID-19 testing negative. patient is fully vaccinated. (3) COPD exacerbation: Plan: Received 60 mg of Solu-Medrol in the emergency department and then started on 40 mg 4 times daily Discontinue Solu-Medrol and start dexamethasone IV 6 mg daily Can convert to prednisone when patient is able to swallow Continue antibiotics for pneumonia as listed above Continue Brio Ellipta (ICS/LABA) DuoNebs as needed (4) Hypokalemia: Plan: Potassium level today is 3.6 Magnesium level 2.4 Follow serial lab (5) Metabolic encephalopathy: Plan: Resolved 2nd to #1, #2, #3. Also with toxic component from IV ativan. Supportive care. Okay to downgrade to telemetry status (6) Dysphagia: Plan: Speech-language pathology consulted after patient was extubated Patient with immediate coughing and overt signs of aspiration with drop in O2 sats with both clear liquids as well as applesauce. Patient will require FEES or video swallow study Speech-language pathology following Continue n.p.o. at this time (7) 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: Plan: RIGHT. Admitted to [facility] in September for such. Nonoperative management advised during that admission. Down the line once extubated and walking can ambulate as tolerated per 09/30/20 orthopedic progress note. DVT prophylaxis with apixaban 2.5 mg p.o. twice daily Patient unable to stand today secondary to weakness Continue PT/OT (8) Stage 3b chronic kidney disease: Plan: Creatinine remained stable and is 1.63 today -700 cc admission to date Follow serial labs (9) Chronic atrial fibrillation: Plan: Continue beta-gonsalo Continue apixaban 2.5 mg p.o. twice daily Continue to follow on telemetry. Okay to downgrade from ICU (10) Hypertension: Plan: Reinstitute antihypertensives as tolerated All sedation now held now the patient is extubated Blood pressure 132/96 Vital signs per protocol (11) GERD (gastroesophageal reflux disease): Plan: Continue famotidine (12) CAD (coronary artery disease): Plan: No evidence of ACS. Continue asa. Metoprolol tartrate 12.5 mg p.o. twice daily reinstituted EKG with paced rhythm and no evidence of ST changes Follow on telemetry (13) Chronic diastolic (congestive) heart failure: Plan: Continue furosemide as needed Follow ins and outs Currently -700 mL since admission Continue oral intake as tolerated Creatinine stable (14) DM II (diabetes mellitus, type II), controlled: Plan: Glycemic consult appreciated. HbA1C 6.3% in August. Now 5.9% Continue baseline insulin as well sliding scale (15) Status cardiac pacemaker: Plan: Paced rhythm on telemetry (16) Anemia: Plan: Hemoglobin 9.1 g/Hunter Continue to monitor daily labs and trend (17) Hyponatremia: Plan: Sodium 138 Patient's baseline is 130-131 Continue to follow serial labs (18) DVT prophylaxis: Plan: Eliquis for atrial fibrillation Patient should be on 5mg BID based on age, kidney function, and weight. No indication in [facility] why he is not on the higher dose. Will continue to investigate Plan: Okay to downgrade to telemetry Admission and Anticipated Discharge Date Admission Date: October 12, 2020 Supervising Physician Co-Signing Physician Notes Attending Attestation - Pt seen/examined, chart reviewed, care plan d/w KAMILAH Savage. I agree w/ the lin components of his documentation. Saw pt in the ICU before Tx to med/tele. He didn't have hearing aids and it was difficult to communicate. He denied dyspnea. He kept mumbling something about "can't believe I am here." VSS, no fever today, o2 sats stable on NC O2 gen - NAD, mildly confused neck - mild JVD heart - RRR, s1 s2 lungs - end-exp wheezes b/l, decreased BS bases abd - soft NT ND BS+ ext - pulses 2+ b/l A/P: 1. acute hypoxic/hypercarbic resp failure 2nd to COPD exacerbation & pseudomonas pneumonia 2. pseudomonas UTI 3. metabolic encephalopathy 2nd to #1, #2 4. possible acute/chronic diastolic CHF 5. permanent a.fib agree w/ Tx to med/tele agree with antibiotic changes lasix IV labs in am PT, OT updated by phone this evening Ken Dillon MD Subjective Attending: Dr. Dillon Patient seen and examined this morning in bed 104. He was successfully ext ubated yesterday. Currently saturating 93% with 3 L/min via nasal cannula. He denies any shortness of breath. He further denies chest pain. Has no fever or chills. He does continue to be weak. Attempted to sit on edge of bed and stand. Patient unable to stand and put back into bed. Patient does state that he had some minimal lightheadedness upon sitting which resolved quickly. The patient denies any sore throat. He has no other acute complaints at this time. Review of Systems Review of Systems: All systems reviewed & are unremarkable except as noted in Subjective Physical Exam Physical Exam: GENERAL : No acute distress. Hard of hearing EYES: No icterus, gaze conjugate NOSE: No evidence of epistaxis. Nasal cannula in place MOUTH: No lesions or candidiasis. Mucosa moist NECK: Supple LUNGS: CTA B/L, no wheezes, rales or rhonchi HEART: Regular, rate controlled ABDOMEN: Soft, NT, ND, BS Present EXTREMITIES: No LE edema, pedal pulses intact and equal bilaterally. Legs extremely weak. NEURO: A&OX3 Results & Data Results & Data ([facility]) Vital Signs (Past 12 Hours) Vital Signs Temp Pulse Resp BP Pulse Ox 10/14/20 10:33 37.2 C 70 25 H 159/94 H 93 10/14/20 09:33 37.1 C 70 22 158/96 H 96 10/14/20 08:33 37.0 C 70 29 H 168/86 H 95 10/14/20 07:33 37.0 C 70 26 H 167/101 H 98 10/14/20 07:17 37.0 C 69 24 151/84 H 89 L 09/08/21 05:33 36.9 C 70 23 169/89 H 95 10/14/20 04:33 37.0 C 70 27 H 157/98 H 93 10/14/20 03:33 37.0 C 70 25 H 166/91 H 94 10/14/20 02:33 37.0 C 70 24 160/88 H 96 10/14/20 01:33 37.1 C 70 28 H 161/92 H 94 10/14/20 00:33 37.2 C 70 25 H 162/88 H 99 Laboratory Results 10/14/20 04:58 10/14/20 04:58 Microbiology 10/12/20 12:37 Urine Culture - Preliminary Urine,Straight Cath Probable Pseudomonas species Gram negative bacilli#2 10/12/20 11:29 Acid Fast Bacilli Smear - Final Bronch Wash,Right Middle Lobe 10/12/20 07:10 Aerobic Blood Culture - Preliminary Blood No growth in Aerobic bottle after 48 hours. Anaerobic Blood Culture - Final 10/12/20 11:29 Gram Stain - Final Bronch Wash,Right Middle Lobe Bronchial Culture - Final Pseudomonas aeruginosa Haemo.influ betalactamase neg 10/12/20 06:12 Aerobic Blood Culture - Preliminary Blood No growth in Aerobic bottle after 48 hours. Anaerobic Blood Culture - Preliminary No growth in Anaerobic bottle after 48 hours. 10/12/20 11:29 Fungal Smear - Final Bronch Wash,Right Middle Lobe Fungal Culture - Preliminary No yeast or fungus isolated - Report 1, Additional Report to Follow. Diagnostic Findings Chest X-Ray 10/14/20 07:00 SINGLE VIEW CHEST CLINICAL HISTORY: Respiratory failure. FINDINGS: An AP, portable, upright chest radiograph is compared to study dated 10/13/2020 and correlated with chest CT dated 12/06/2016. The examination is degraded by portable technique and patient rotation. Endotracheal and enteric tubes have been removed The patient is status post midline sternotomy. Epicardial pacing leads are noted. A 2-lead cardiac pacemaker is unchanged in position. The heart is enlarged noting atherosclerotic calcification of the thoracic aorta. Pulmonary vascular congestion persists. Scattered bilateral airspace opacities are similar to previous. Scarring/atelectasis is again seen at both lung bases. Small pleural effusions are suspected. No pneumothorax is identified. The skeletal structures are osteopenic. The bony thorax is grossly intact. IMPRESSION: 1. Endotracheal and enteric tubes have been removed. 2. Cardiomegaly and cardiac pacemaker. Pulmonary vascular congestion persists. 3. Scattered bilateral airspace opacities are similar to yesterday. This could represent mild pulmonary edema versus an infectious/inflammatory pneumonitis. 4. Suspect small pleural effusions. ACT 112: Negative or not required by law. Electronically signed by: Laci Steele M.D. 10/14/2020 9:19 AM Medications Administered Current Inpatient Medications Acetaminophen (Acetaminophen Susp 325 Mg/10.15 Ml Udc) 650 mg PO Q6H PRN PRN Reason: Fever Stop: 11/11/20 14:55 Albuterol (Albut/Ipratrop 3mg/0.5mg Neb 3 Ml Vial) 3 ml INH Q6R PRN PRN Reason: Shortness Of Breath Stop: 11/12/20 09:36 Allopurinol (Allopurinol 300 Mg Tab) 300 mg NG QAM [facility] Stop: 11/13/20 08:59 Last Admin: 10/14/20 09:07 Dose: Not Given Documented by: Apixaban (Apixaban 2.5 Mg Tab) 2.5 mg PO BID [facility]; Protocol Stop: 11/12/20 20:59 Last Admin: 10/14/20 09:07 Dose: Not Given Documented by: Aspirin (Aspirin 81 Mg Chew) 81 mg NG QAM [facility] Stop: 11/13/20 08:59 Last Admin: 10/14/20 09:08 Dose: Not Given Documented by: Escitalopram Oxalate (Escitalopram Oxalate Oral Soln 5 Mg/5 Ml Udp) 5 mg PO QDD [facility] Stop: 11/12/20 16:59 Last Admin: 10/13/20 17:45 Dose: Not Given Documented by: Fluticasone Propionate (Fluticasone Propionate Na Spr 16 Gm Btl) 2 sprays NA QAM [facility] Stop: 11/12/20 08:59 Last Admin: 10/14/20 07:28 Dose: 1 sprays Documented by: Fluticasone/Vilanterol (Fluticasone/Vilanterol 100/25mcg 14 Puffs/Inhaler) 1 puffs INH PM [facility] Stop: 11/11/20 20:59 Last Admin: 10/13/20 22:07 Dose: 1 puffs Documented by: Famotidine 20 mg/ Syringe 5 mls @ 2.5 mls/min IV Q12 JAQUELINE Stop: 11/11/20 10:56 Last Admin: 10/14/20 07:27 Dose: 2.5 mls/min Documented by: Furosemide 40 mg/ Syringe 4 mls @ 4 mls/min IV BID [facility] Stop: 11/11/20 20:59 Last Admin: 10/14/20 07:28 Dose: 4 mls/min Documented by: Levofloxacin/Dextrose (Levaquin/D5w) 750 mg in 150 mls @ 100 mls/hr IV Q2D@0900 [facility] (New 10/14/2020) Stop: 10/21/20 09:44 Last Infusion: 10/14/20 11:40 Dose: Infused Documented by: Dexamethasone 6 mg/ Syringe 1.5 mls @ 1 mls/min IV DAILY [facility] Stop: 10/17/20 09:02 Last Admin: 10/14/20 11:22 Dose: 1 mls/min Documented by: Insulin Aspart (Insulin Aspart 100 Units/Ml 3 Ml Pen) 0 units SC Q6 [facility]; Protocol Stop: 11/13/20 11:59 Last Admin: 10/14/20 11:21 Dose: Not Given Documented by: Insulin Glargine (Insulin Glargine Solostar 100 Units/Ml 3 Ml Pen) 0 units SC BID@0600,1800 [facility]; Protocol Stop: 11/13/20 17:59 Metoprolol Tartrate (Metoprolol Tartrate 25 Mg Tab) 12.5 mg PO BID [facility] Stop: 11/11/20 20:59 Last Admin: 10/14/20 09:08 Dose: Not Given Documented by: Miscellaneous Information (Pharmacy Glycemic Mgmt Consult) 1 ea N/A UD PRN PRN Reason: Consult Stop: 11/12/20 08:36 Simvastatin (Simvastatin 10 Mg Tab) 10 mg NG HS [facility] Stop: 11/12/20 20:59 Last Admin: 10/13/20 21:48 Dose: Not Given Documented by: Travoprost (Travoprost Z 0.004% Oph Soln 2.5 Ml Btl) 1 drops [facility]B [facility] Stop: 11/11/20 20:59 Last Admin: 10/13/20 20:03 Dose: 1 drops Documented by: PG Care Time/CCT Total # of Minutes Spent Total Time Spent with Patient: Total time spent is greater than 50% in coordination of care (as documented) at patient's floor/unit and/or counseling patient: Coding Level of Care Code 94870 Subseq Hosp Care Lvl 3 Diagnoses Acute respiratory failure with hypoxia and hypercapnia J96.01; J96.02 Pneumonia J18.9 COPD exacerbation J44.1 Hypokalemia E87.6 Metabolic encephalopathy G93.41 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 M97.01XA Encounter type: initial encounter Laterality: right Stage 3b chronic kidney disease N18.32 Chronic atrial fibrillation I48.20 Hypertension I10 Hypertension type: essential hypertension GERD (gastroesophageal reflux disease) K21.9 CAD (coronary artery disease) I25.10 Chronic diastolic (congestive) heart failure I50.32 DM II (diabetes mellitus, type II), controlled E11.9 Diabetes mellitus complication status: without complication Diabetes mellitus superintendent container terminal insulin use: without long-term use Status cardiac pacemaker Z95.0 Anemia D64.9 Hyponatremia E87.1 DVT prophylaxis Z29.9 Dysphagia R13.10 Dysphagia type: esophageal phase Time Spent (min) 35 (1) Dysphagia Dysphagia type: esophageal phase Qualified Code(s): R13.10 - Dysphagia, unspecified (2) 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 Encounter type: initial encounter Laterality: right Qualified Code(s): M97.01XA - Periprosthetic fracture around internal prosthetic right hip joint, initial encounter (3) DM II (diabetes mellitus, type II), controlled Diabetes mellitus complication status: without complication Diabetes mellitus superintendent container terminal insulin use: without long-term use Qualified Code(s): E11.9 - Type 2 diabetes mellitus without complications (4) Hypertension Hypertension type: essential hypertension Qualified Code(s): I10 - Essential (primary) hypertension
[2020-10-14] MEDS ORDERED: INSULIN ASPART 100 UNITS/ML 3 ML PEN SC SCH (12:00)
--- NOTE | 2020-10-14 12:13 | Pharmacy Report ---
Pharmacy Glycemic Short Note 2 - Date of Service October 14, 2020 - Glycemic Short BSG Results (Last 24 hours): 10/13/20 10/13/20 10/14/20 16:27 19:54 00:40 Glucose POC Glucose 149 H 141 H 147 H 10/14/20 10/14/20 10/14/20 03:57 04:58 07:14 Glucose 135 H POC Glucose 154 H 143 H 10/14/20 11:14 Glucose POC Glucose 152 H OUTPATIENT ANTIDIABETIC REGIMEN: * N/A * HbA1c 5.9% on 10/13/20 ASSESSMENT: 10/14/20 * BSG's have been well controlled at ICU goal range with a low-dose Lantus x1 yesterday and minimal correction received * Steroids tapering - will adjust Lantus and split BID. Ongoing Lantus only when BSG >140 mg/dL * Will also decrease Novolog to q6h checks and potentially loosen depending on trend in BSG's 10/13/20 * 80 yo M admitted to ICU on 10/12 for acute resp failure/COPD exacerbation. BSG's now elevated 2nd steroids (although plan to taper starting tomorrow. Pharmacy glycemic consult initiated 2nd ICU protocol parameters * BSG's ranged 178-198 mg/dL for the last 4 checks - only mildly hyperglycemic considering ICU goal range 140-180 mg/dL * Will initiate low-dose Lantus, given hyperglycemia is only mild and patient is NPO * Will initiate Novolog between moderate to severe stress/weight-based estimate PLAN FOR INPATIENT GLYCEMIC CONTROL: * Basal insulin * Lantus 5 units BID - hold for BSG less than 140 mg/dL * Bolus insulin * NovoLog per scale ACHS or Q6hrs while NPO * Goal Range: Low 120 mg/dL - High 160 mg/dL * Correction Factor: 20 mg/dL/unit * Nutritional / Prandial insulin per carb ratio of 1 unit per 6 grams CHO consumed PLAN FOR DISCHARGE: * Follow-up as outpatient regarding management of pre-diabetes (per HbA1c)
[2020-10-14] MEDS ORDERED: Nursing to Pharmacy Communication SCH (13:45)
[2020-10-14] MEDS: ESCITALOPRAM OXALATE ORAL SOLN 5 MG/5 ML UDP PO SCH (17:09)
[2020-10-14] MEDS ORDERED: INSULIN GLARGINE SOLOSTAR 100 UNITS/ML 3 ML PEN SC SCH (18:00)
[2020-10-14] MEDS: SIMVASTATIN 10 MG TAB NG SCH (20:33)
[2020-10-14] MEDS: FLUTICASONE/VILANTEROL 100/25MCG 14 PUFFS/INHALER INH SCH (20:36)
[2020-10-14] MEDS: TRAVOPROST Z 0.004% OPH SOLN 2.5 ML BTL OPB SCH (20:37)
[2020-10-14] MEDS: INSULIN GLARGINE SOLOSTAR 100 UNITS/ML 3 ML PEN SC SCH (21:43)
[2020-10-15 07:11] LABS: BUN Creatinine Ratio 42.4 (10-20); Calcium 10.1 mg/dl (8.5-10.1); Creatinine Clr Calc Pharmacy 45.3 ml/min; Est GFR (African American) 49.1 ml/min; Est GFR (Non-African American) 42.4 ml/min; Potassium 3.7 mmol/L (3.5-5.1)
[2020-10-15] MEDS: FLUTICASONE PROPIONATE NA SPR 16 GM BTL SCH (07:49)
[2020-10-15] MEDS: FUROSEMIDE 40 MG in SYRINGE 0 ML IV SCH (07:49)
[2020-10-15] MEDS: APIXABAN 2.5 MG TAB PO SCH ×2 (07:50→21:06)
[2020-10-15] MEDS: METOPROLOL TARTRATE 25 MG TAB PO SCH ×2 (07:50→21:05)
[2020-10-15] MEDS: dexAMETHasone 6 MG in SYRINGE 0 ML IV SCH (07:50)
[2020-10-15] MEDS: ASPIRIN 81 MG CHEW NG SCH (07:52)
[2020-10-15] MEDS: allopurinoL 300 MG TAB NG SCH (07:52)
[2020-10-15] MEDS: FAMOTIDINE 20 MG in SYRINGE 3 ML IV SCH ×2 (07:53→21:09)
[2020-10-15] MEDS: INSULIN GLARGINE SOLOSTAR 100 UNITS/ML 3 ML PEN SC SCH ×2 (08:50→21:07)
[2020-10-15] MEDS: INSULIN ASPART 100 UNITS/ML 3 ML PEN SC SCH ×4 (08:51→20:58)
--- NOTE | 2020-10-15 09:48 | Pharmacy Report ---
Pharmacy Glycemic Short Note 2 - Date of Service October 15, 2020 - Glycemic Short BSG Results (Last 24 hours): 10/14/20 10/14/20 10/14/20 11:14 16:42 20:54 Glucose POC Glucose 152 H 136 H 151 H 10/15/20 10/15/20 05:50 07:24 Glucose 94 POC Glucose 103 H OUTPATIENT ANTIDIABETIC REGIMEN: * N/A * HbA1c 5.9% on 10/13/20 ASSESSMENT: 10/15 * Pt has received 12 units of insulin over the past 24hrs * 10 units of basal with Lantus * 2 units of bolus with NovoLog * BSGs [phone] mg/dl * BSGs well controlled over the past 24hrs but expecting hyperglycemia to occur today with daily dexamethasone and especially advanced diet. Steroids have their most profound effect on post-prandial BSGs. * Will empirically increase insulin regimen but will start conservatively since minimal effect on BSGs over the past 2 days with RTC steroids. * Goal is to maintain BSGs <180 mg/dl to facilitate healing 10/14/20 * BSG's have been well controlled at ICU goal range with a low-dose Lantus x1 y ester and minimal correction received * Steroids tapering - will adjust Lantus and split BID. Ongoing Lantus only when BSG >140 mg/dL * Will also decrease Novolog to q6h checks and potentially loosen depending on trend in BSG's 10/13/20 * 80 yo M admitted to ICU on 10/12 for acute resp failure/COPD exacerbation. BSG's now elevated 2nd steroids (although plan to taper starting tomorrow. Pharmacy glycemic consult initiated 2nd ICU protocol parameters * BSG's ranged 178-198 mg/dL for the last 4 checks - only mildly hyperglycemic considering ICU goal range 140-180 mg/dL * Will initiate low-dose Lantus, given hyperglycemia is only mild and patient is NPO * Will initiate Novolog between moderate to severe stress/weight-based estimate PLAN FOR INPATIENT GLYCEMIC CONTROL: * Basal insulin * Lantus 5-10 units BID - dose based on BSG * BSG < 140 --> 5 units * BSG 140 or above --> 10 units * Bolus insulin * NovoLog per scale ACHS or Q6hrs while NPO * Goal Range: Low 110 mg/dL - High 140 mg/dL (lower goal range for transfer to medical floor) * Correction Factor: 20 mg/dL/unit * Nutritional / Prandial insulin per carb ratio of 1 unit per 6 grams CHO c onsumed PLAN FOR DISCHARGE: * HbA1c of 5.7-6.4% indicates "pre-diabetes" --> ADA recommendation is to institute diabetes and atherosclerosis prevention
[2020-10-15] MEDS: AMOXICILLIN 500 MG CAP PO SCH ×3 (11:04→21:04)
[2020-10-15] MEDS: ESCITALOPRAM OXALATE ORAL SOLN 5 MG/5 ML UDP PO SCH (17:21)
[2020-10-15] MEDS: QUEtiapine FUMARATE 25 MG TABLET PO SCH (21:03)
[2020-10-15] MEDS: ACETAMINOPHEN SUSP 325 MG/10.15 ML UDC PO PRN (21:03)
[2020-10-15] MEDS: TRAVOPROST Z 0.004% OPH SOLN 2.5 ML BTL OPB SCH (21:04)
[2020-10-15] MEDS: FLUTICASONE/VILANTEROL 100/25MCG 14 PUFFS/INHALER INH SCH (21:06)
[2020-10-15] MEDS: SIMVASTATIN 10 MG TAB NG SCH (21:10)
--- NOTE | 2020-10-15 21:30 | Hospitalist Progress Note ---
Date of Service October 15, 2020 Assessment & Plan (1) Acute respiratory failure with hypoxia and hypercapnia: Plan: 2nd to right-sided pneumonia and COPD exacerbation. Improving. Intubated day of admission. Extubated 10/13. Remains on NC O2. Zosyn initially; changed to levaquin to cover pseudomonas from bronch. Amox will cover the H flu since it is betalactamase neg. s/p some IV lasix to keep fluid balance negative. PE is in differential given poor mobility and recent right-sided periprosthetic femur fracture but had been on his usual eliquis BID leading up to this admission. COVID-19 negative, and reports he is fully vaccinated. NC o2 during day; CPAP HS. Wean NC O2 as tolerated. (2) Pneumonia: Plan: Right-sided. Bronchoscopy cx with Pseudomonas Aeruginosa and H flu beta neg. levofloxacin 750 mg p.o. every other day + amoxicillin 500mg TID. day #4 of abx. plan 7 days in total. MRSA screening is negative. Titrate supplemental oxygen as tolerated COVID-19 testing negative. patient is fully vaccinated. (3) COPD exacerbation: Plan: Received 60 mg of Solu-Medrol in the emergency department and then started on 40 mg 4 times daily Transitioned to dexamethasone IV 6 mg daily by ICU prior to transfer to floor. Continue antibiotics for pneumonia as listed above Continue Brio Ellipta (ICS/LABA) DuoNebs as needed (4) UTI (urinary tract infection): Plan: 2nd pseudomonas + proteus. levaquin + amox. remove griffith - high risk of self-removal with urinary tract/penile injury. (5) Hypokalemia: Plan: resolved (6) Metabolic encephalopathy: Plan: Ongoing, severe 2nd to #1, #2, #3, #4. hospital psychosis/ICU psychosis also likely contributing start seroquel 12.5mg HS due to high risk of pulling at IVs (attempted to remove griffith today, and did take monitor leads off). reinforce day/night, etc. (7) Dysphagia: Plan: Speech-language pathology consulted after patient was extubated Speech has seen - now cleared for diet (8) 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: Plan: RIGHT. Admitted to [facility] in September for such. Nonoperative management advised during that admission. ambulate as tolerated per 09/30/20 orthopedic progress note. DVT prophylaxis with apixaban 2.5 mg p.o. twice daily Continue PT/OT (9) Stage 3b chronic kidney disease: Plan: stable BMP am (10) Chronic atrial fibrillation: Plan: Continue beta-gonsalo Continue apixaban 2.5 mg p.o. twice daily can d/c tele - pacing 29/08 on monitor (11) Hypertension: Plan: Can resume aldactone (12) GERD (gastroesophageal reflux disease): Plan: Continue famotidine (13) CAD (coronary artery disease): Plan: No evidence of ACS. Continue asa. Metoprolol tartrate 12.5 mg p.o. twice daily (14) Chronic diastolic (congestive) heart failure: Plan: resume oral diuretics appears compensated today (15) DM II (diabetes mellitus, type II), controlled: Plan: Glycemic consult appreciated. HbA1C 6.3% in August. Now 5.9% Appreciate pharmacy assistance. (16) Status cardiac pacemaker: Plan: Paced rhythm 29/08 (17) Anemia: Plan: H/H stable anemic of chronic disease Continue to monitor (18) Hyponatremia: Plan: stable, improved 2nd to chronic diuretics Patient's baseline is 130-131 BMP daily (19) DVT prophylaxis: Plan: Eliquis If Cr stays <1.5 should increase dose to 5mg BID extensively updated today by phone Admission and Anticipated Discharge Date Admission Date: October 12, 2020 Subjective patient very confused today - worse in afternoon when I came to see him he had removed the griffith catheter leg connector piece and handed it to me he had removed his monitor leads and handed the entire box/leads to me prior to such his tele showed pacing he said "I'm going home - my is coming." eating fair per staff still requiring NC O2 Review of Systems Review of Systems: Unobtainable due to cognitive status Physical Exam Physical Exam: gen - confused, agitated, trying to pull at griffith etc; asking to go home neck - mild JVD noted mouth - MMM heart - RRR, s1 s2 lungs - diffuse wheezes b/l; mild rales bases; no increased WOB abd - soft, obese, NT ext - trace edema b/l, pulses 2+ b/l psych - a/o x 1 only ( did not know he was in hospital ) Results & Data Results & Data ([facility]) Vital Signs (Past 12 Hours) Vital Signs Temp Pulse Pulse Resp BP Pulse Ox Pulse Ox 10/15/20 19:13 36.3 C L 69 20 175/91 H 92 10/15/20 15:25 36.7 C 70 20 175/88 H 98 10/15/20 14:56 72 10/15/20 13:21 96 10/15/20 11:49 36.9 C 69 20 148/75 H 96 Laboratory Results Laboratory Results - last 24 hr 10/15/20 10/15/20 10/15/20 05:50 07:24 11:27 Sodium 141 Potassium 3.7 Chloride 103 Carbon Dioxide 32 Anion Gap 6.0 BUN 64 H Creatinine 1.51 H Est Cr Clr Drug Dosing 45.3 Est GFR ( Amer) 49.1 Est GFR (Non-Af Amer) 42.4 BUN/Creatinine Ratio 42.4 H Glucose 94 POC Glucose 103 H 138 H Calcium 10.1 10/15/20 10/15/20 16:25 20:56 Sodium Potassium Chloride Carbon Dioxide Anion Gap BUN Creatinine Est Cr Clr Drug Dosing Est GFR ( Amer) Est GFR (Non-Af Amer) BUN/Creatinine Ratio Glucose POC Glucose 115 H 108 H Calcium Diagnostic Findings cultures - urine - pseudomonas, proteus bronch - pseudomonas, H flu beta neg PG Care Time/CCT Total # of Minutes Spent Total Time Spent with Patient: Total time spent is greater than 50% in coordination of care (as documented) at patient's floor/unit and/or counseling patient: Coding Level of Care Code 82039 Subseq Hosp Care Lvl 3 Diagnoses Acute respiratory failure with hypoxia and hypercapnia J96.01; J96.02 Pneumonia J18.9 COPD exacerbation J44.1 Hypokalemia E87.6 Metabolic encephalopathy G93.41 Dysphagia R13.10 Dysphagia type: esophageal phase 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 M97.01XA Encounter type: initial encounter Laterality: right Stage 3b chronic kidney disease N18.32 Chronic atrial fibrillation I48.20 Hypertension I10 Hypertension type: essential hypertension GERD (gastroesophageal reflux disease) K21.9 CAD (coronary artery disease) I25.10 Chronic diastolic (congestive) heart failure I50.32 DM II (diabetes mellitus, type II), controlled E11.9 Diabetes mellitus complication status: without complication Diabetes mellitus terminal manager insulin use: without terminal manager use Status cardiac pacemaker Z95.0 Anemia D64.9 Hyponatremia E87.1 DVT prophylaxis Z29.9 UTI (urinary tract infection) N39.0 (1) Dysphagia Dysphagia type: esophageal phase Qualified Code(s): R13.10 - Dysphagia, unspecified (2) 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 Encounter type: initial encounter Laterality: right Qualified Code(s): M97.01XA - Periprosthetic fracture around internal prosthetic right hip joint, initial encounter (3) DM II (diabetes mellitus, type II), controlled Diabetes mellitus complication status: without complication Diabetes mellitus longterm insulin use: without terminal manager use Qualified Code(s): E11.9 - Type 2 diabetes mellitus without complications (4) Hypertension Hypertension type: essential hypertension Qualified Code(s): I10 - Essential (primary) hypertension
[2020-10-16 07:09] LABS: BUN Creatinine Ratio 46.8 (10-20); Calcium 9.5 mg/dl (8.5-10.1); Est GFR (African American) 59.4 ml/min; Est GFR (Non-African American) 51.3 ml/min
[2020-10-16] MEDS: APIXABAN 2.5 MG TAB PO SCH ×2 (07:28→21:00)
[2020-10-16] MEDS: AMOXICILLIN 500 MG CAP PO SCH ×3 (07:28→21:01)
[2020-10-16] MEDS: METOPROLOL TARTRATE 25 MG TAB PO SCH ×2 (07:28→20:59)
[2020-10-16] MEDS: allopurinoL 300 MG TAB NG SCH (07:28)
[2020-10-16] MEDS: ASPIRIN 81 MG CHEW NG SCH (07:29)
[2020-10-16] MEDS: FAMOTIDINE 20 MG in SYRINGE 3 ML IV SCH ×2 (08:40→22:55)
[2020-10-16] MEDS: FLUTICASONE PROPIONATE NA SPR 16 GM BTL SCH (08:40)
[2020-10-16] MEDS: dexAMETHasone 6 MG in SYRINGE 0 ML IV SCH (08:40)
[2020-10-16] MEDS: levoFLOXacin/D5W 750 MG/150 ML BAG IV SCH (08:40)
[2020-10-16] MEDS: INSULIN GLARGINE SOLOSTAR 100 UNITS/ML 3 ML PEN SC SCH ×2 (08:41→21:10)
[2020-10-16] MEDS: INSULIN ASPART 100 UNITS/ML 3 ML PEN SC SCH ×4 (08:43→20:58)
[2020-10-16 09:04] LABS: Potassium 4.1 mmol/L (3.5-5.1)
[2020-10-16] MEDS: SPIRONOLACTONE 12.5 MG TAB PO SCH ×2 (10:03→17:25)
--- NOTE | 2020-10-16 11:06 | Pharmacy Report ---
Pharmacy Glycemic Short Note 2 - Date of Service October 16, 2020 - Glycemic Short BSG Results (Last 24 hours): 10/15/20 10/15/20 10/15/20 11:27 16:25 20:56 Glucose POC Glucose 138 H 115 H 108 H 10/16/20 10/16/20 06:31 07:54 Glucose 75 POC Glucose 82 OUTPATIENT ANTIDIABETIC REGIMEN: * N/A * HbA1c 5.9% on 10/13/20 ASSESSMENT: 10/16 * Pt has received 17 units of insulin over the past 24hrs * 10 units of basal with Lantus * 7 units of bolus with NovoLog * BSGs [phone] mg/dl * AM fasting BSG slightly below goal range for inpatient targets. Will decrease basal insulin by 20% * No changes needed to CF/CR. * Insulin will likely need dc once steroids tapered/dc 10/15 * Pt has received 12 units of insulin over the past 24hrs * 10 units of basal with Lantus * 2 units of bolus with NovoLog * BSGs [phone] mg/dl * BSGs well controlled over the past 24hrs but expecting hyperglycemia to occur today with daily dexamethasone and especially advanced diet. Steroids have their most profound effect on post-prandial BSGs. * Will empirically increase insulin regimen but will start conservatively since minimal effect on BSGs over the past 2 days with RTC steroids. * Goal is to maintain BSGs <180 mg/dl to facilitate healing 10/14/20 * BSG's have been well controlled at ICU goal range with a low-dose Lantus x1 yesterday and minimal correction received * Steroids tapering - will adjust Lantus and split BID. Ongoing Lantus only when BSG >140 mg/dL * Will also decrease Novolog to q6h checks and potentially loosen depending on trend in BSG's 10/13/20 * 80 yo M admitted to ICU on 10/12 for acute resp failure/COPD exacerbation. BSG's now elevated 2nd steroids (although plan to taper starting tomorrow. Pharmacy glycemic consult initiated 2nd ICU protocol parameters * BSG's ranged 178-198 mg/dL for the last 4 checks - only mildly hyperglycemic considering ICU goal range 140-180 mg/dL * Will initiate low-dose Lantus, given hyperglycemia is only mild and patient is NPO * Will initiate Novolog between moderate to severe stress/weight-based estimate PLAN FOR INPATIENT GLYCEMIC CONTROL: * Basal insulin * Lantus 4 units BID * Bolus insulin * NovoLog per scale ACHS or Q6hrs while NPO * Goal Range: Low 110 mg/dL - High 140 mg/dL (lower goal range for transfer to medical floor) * Correction Factor: 20 mg/dL/unit * Nutritional / Prandial insulin per carb ratio of 1 unit per 6 grams CHO consumed PLAN FOR DISCHARGE: * HbA1c of 5.7-6.4% indicates "pre-diabetes" --> ADA recommendation is to institute diabetes and atherosclerosis prevention
[2020-10-16] MEDS: ESCITALOPRAM OXALATE ORAL SOLN 5 MG/5 ML UDP PO SCH (17:25)
[2020-10-16] MEDS: FUROSEMIDE 40 MG TAB PO SCH (17:26)
[2020-10-16] MEDS: QUEtiapine FUMARATE 25 MG TABLET PO SCH (21:02)
[2020-10-16] MEDS: FLUTICASONE/VILANTEROL 100/25MCG 14 PUFFS/INHALER INH SCH (21:07)
[2020-10-16] MEDS: TRAVOPROST Z 0.004% OPH SOLN 2.5 ML BTL OPB SCH (21:08)
[2020-10-16] MEDS: SIMVASTATIN 10 MG TAB NG SCH (21:08)
[2020-10-16] MEDS: ACETAMINOPHEN SUSP 325 MG/10.15 ML UDC PO PRN (21:15)
--- NOTE | 2020-10-16 21:57 | Hospitalist Progress Note ---
Date of Service October 16, 2020 Assessment & Plan (1) Acute respiratory failure with hypoxia and hypercapnia: Plan: Resolved. NC O2 discontinued. 2nd to right-sided pneumonia and COPD exacerbation. Intubated day of admission. Extubated 10/13. Antibiotics -- Zosyn initially; changed to levaquin to cover pseudomonas from bronch. Amox will cover the H flu since it is betalactamase neg. s/p some IV lasix to keep fluid balance negative. PE is in differential given poor mobility and recent right-sided periprosthetic femur fracture but had been on his usual eliquis BID leading up to this admission. COVID-19 negative, and reports he is fully vaccinated. (2) Pneumonia: Plan: Right-sided. slowly clinically improving. Bronchoscopy cx with Pseudomonas Aeruginosa and H flu beta neg. levofloxacin 750 mg p.o. every other day + amoxicillin 500mg TID. day #5 of abx. plan 7 days in total. COVID-19 testing negative. patient is fully vaccinated. (3) COPD exacerbation: Plan: Received 60 mg of Solu-Medrol in the emergency department and then started on 40 mg 4 times daily Subsequently transitioned to dexamethasone IV 6 mg daily by ICU prior to transfer to floor. Continue antibiotics for pneumonia as listed above Continue Brio Ellipta (ICS/LABA) DuoNebs as needed Can likely wean steroids tomorrow. (4) UTI (urinary tract infection): Plan: 2nd pseudomonas + proteus. levaquin + amox. voiding fine. (5) Hypokalemia: Plan: resolved (6) Metabolic encephalopathy: Plan: Ongoing but improved today s/p low-dose seroquel last HS. 2nd to #1, #2, #3, #4. hospital psychosis/ICU psychosis also likely contributed. cont seroquel low-dose. 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 Admitted to [facility] in September for such. Nonoperative management advised during that admission. ambulate as tolerated per 09/30/20 orthopedic progress note. DVT prophylaxis with apixaban 2.5 mg p.o. twice daily Continue PT/OT (9) Stage 3b chronic kidney disease: Plan: stable BMP am (10) Chronic atrial fibrillation: Plan: Continue beta-gonsalo Continue apixaban 2.5 mg p.o. twice daily previously paced on monitor (11) Hypertension: Plan: resumed aldactone resumed lasix (12) GERD (gastroesophageal reflux disease): Plan: Continue famotidine (13) CAD (coronary artery disease): Plan: No evidence of ACS. Continue asa. Metoprolol tartrate 12.5 mg p.o. twice daily (14) Chronic diastolic (congestive) heart failure: Plan: compensated weight is well below usual weights per the EMR (15) DM II (diabetes mellitus, type II), controlled: Plan: Glycemic consult appreciated. HbA1C 6.3% in August. Now 5.9% Appreciate pharmacy assistance. (16) Status cardiac pacemaker: Plan: Paced rhythm 29/08 (17) Anemia: Plan: H/H stable anemic of chronic disease Continue to monitor (18) Hyponatremia: Plan: stable 2nd to chronic diuretics BMP daily (19) DVT prophylaxis: Plan: Eliquis If Cr stays <1.5 should increase dose to 5mg BID Plan: extensively updated by phone yesterday will update her tomorrow [facility] Admission and Anticipated Discharge Date Admission Date: October 12, 2020 Subjective patient had better night last night per staff slept all night and slept well into the morning eating fair not as confused today more calm; not agitated Dr Parson from [facility] came to his room for a social visit and he recognized Dr Parson patient denied any complaints kept saying "I just want to go home with my " Review of Systems Review of Systems: gen - weak CV - no chest pain Pulm - cough, wheezing, congestion GI - no abd pain, no nausea Physical Exam Physical Exam: gen - confused but less so than yesterday; not agitated today neck - no JVD mouth - MMM heart - RRR, s1 s2 lungs - diffuse mild wheezes b/l; mild rales bases abd - soft, obese, NT ext - no edema, pulses 2+ b/l psych - a/o x 2 only (person, place) Results & Data Results & Data ([facility]) Vital Signs (Past 12 Hours) Vital Signs Temp Pulse Resp BP BP Pulse Ox 10/16/20 19:43 37.0 C 68 20 163/75 H 93 10/16/20 15:01 36.7 C 66 16 143/73 H 94 Laboratory Results Laboratory Results - last 24 hr 10/16/20 10/16/20 10/16/20 06:31 06:31 07:54 Sodium 138 Potassium Chloride 105 Carbon Dioxide 29 Anion Gap 4.0 BUN 60 H Creatinine 1.29 Est Cr Clr Drug Dosing 53.0 Est GFR ( Amer) 59.4 Est GFR (Non-Af Amer) 51.3 BUN/Creatinine Ratio 46.8 H Glucose 75 POC Glucose 82 Calcium 9.5 Ammonia 22.0 Specimen Hemolysis 10/16/20 10/16/20 10/16/20 07:58 11:12 16:48 Sodium Potassium 4.1 Chloride Carbon Dioxide Anion Gap BUN Creatinine Est Cr Clr Drug Dosing Est GFR ( Amer) Est GFR (Non-Af Amer) BUN/Creatinine Ratio Glucose POC Glucose 106 H 114 H Calcium Ammonia Specimen Hemolysis 10/16/20 20:55 Sodium Potassium Chloride Carbon Dioxide Anion Gap BUN Creatinine Est Cr Clr Drug Dosing Est GFR ( Amer) Est GFR (Non-Af Amer) BUN/Creatinine Ratio Glucose POC Glucose 119 H Calcium Ammonia Specimen Hemolysis PG Care Time/CCT Total # of Minutes Spent Total Time Spent with Patient: Total time spent is greater than 50% in coordination of care (as documented) at patient's floor/unit and/or counseling patient: Coding Level of Care Code 70647 Subseq Hosp Care Lvl 2 Diagnoses Acute respiratory failure with hypoxia and hypercapnia J96.01; J96.02 Pneumonia J18.9 COPD exacerbation J44.1 UTI (urinary tract infection) N39.0 Hypokalemia E87.6 Metabolic encephalopathy G93.41 Dysphagia R13.10 Dysphagia type: esophageal phase 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 M97.01XA Encounter type: initial encounter Laterality: right Stage 3b chronic kidney disease N18.32 Chronic atrial fibrillation I48.20 Hypertension I10 Hypertension type: essential hypertension GERD (gastroesophageal reflux disease) K21.9 CAD (coronary artery disease) I25.10 Chronic diastolic (congestive) heart failure I50.32 DM II (diabetes mellitus, type II), controlled E11.9 Diabetes mellitus complication status: without complication Diabetes mellitus termite exterminator helper insulin use: without longterm use Status cardiac pacemaker Z95.0 Anemia D64.9 Hyponatremia E87.1 DVT prophylaxis Z29.9 (1) Dysphagia Dysphagia type: esophageal phase Qualified Code(s): R13.10 - Dysphagia, unspecified (2) 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 Encounter type: initial encounter Laterality: right Qualified Code(s): M97.01XA - Periprosthetic fracture around internal prosthetic right hip joint, initial encounter (3) DM II (diabetes mellitus, type II), controlled Diabetes mellitus complication status: without complication Diabetes mellitus termite exterminator helper insulin use: without longterm use Qualified Code(s): E11.9 - Type 2 diabetes mellitus without complications (4) Hypertension Hypertension type: essential hypertension Qualified Code(s): I10 - Essential (primary) hypertension
[2020-10-17] MEDS: APIXABAN 2.5 MG TAB PO SCH ×2 (07:46→21:28)
[2020-10-17] MEDS: allopurinoL 300 MG TAB NG SCH (07:47)
[2020-10-17] MEDS: FUROSEMIDE 40 MG TAB PO SCH ×2 (07:47→17:44)
[2020-10-17] MEDS: FLUTICASONE PROPIONATE NA SPR 16 GM BTL SCH (07:47)
[2020-10-17] MEDS: AMOXICILLIN 500 MG CAP PO SCH ×3 (07:47→21:28)
[2020-10-17] MEDS: SPIRONOLACTONE 12.5 MG TAB PO SCH ×2 (07:47→17:44)
[2020-10-17] MEDS: levoFLOXacin 750 MG TAB PO SCH (07:47)
[2020-10-17] MEDS: FAMOTIDINE 20 MG in SYRINGE 3 ML IV SCH ×2 (07:51→21:29)
[2020-10-17] MEDS: ASPIRIN 81 MG CHEW NG SCH (07:51)
[2020-10-17] MEDS: INSULIN ASPART 100 UNITS/ML 3 ML PEN SC SCH ×4 (09:08→21:30)
[2020-10-17] MEDS: METOPROLOL TARTRATE 25 MG TAB PO SCH ×2 (09:11→23:08)
[2020-10-17] MEDS: dexAMETHasone 6 MG in SYRINGE 0 ML IV SCH (09:11)
[2020-10-17 09:25] LABS: BUN Creatinine Ratio 41.9 (10-20); Calcium 9.5 mg/dl (8.5-10.1); Creatinine Clr Calc Pharmacy 56.6 ml/min; Est GFR (African American) 64.9 ml/min; Potassium 3.8 mmol/L (3.5-5.1)
--- NOTE | 2020-10-17 11:21 | Pharmacy Report ---
Pharmacy Glycemic Short Note 2 - Date of Service October 17, 2020 - Glycemic Short BSG Results (Last 24 hours): 10/16/20 10/16/20 10/16/20 11:12 16:48 20:55 Glucose POC Glucose 106 H 114 H 119 H 10/17/20 10/17/20 07:21 08:13 Glucose 85 POC Glucose 97 OUTPATIENT ANTIDIABETIC REGIMEN: * N/A * HbA1c 5.9% on 10/13/20 ASSESSMENT: 10/17 * Pt has received 14 units of insulin over the past 24hrs * 4 units of basal with Lantus * 10 units of bolus with NovoLog * BSGs 75-118 mg/dl * Dexamethasone 6mg IV - last dose today * DC Lantus * Continue CF/CR today for steroid coverage and loosen or DC tomorrow depending on fasting BSG tomorrow morning 10/16 * Pt has received 17 units of insulin over the past 24hrs * 10 units of basal with Lantus * 7 units of bolus with NovoLog * BSGs [phone] mg/dl * AM fasting BSG slightly below goal range for inpatient targets. Will decrease basal insulin by 20% * No changes needed to CF/CR. * Insulin will likely need dc once steroids tapered/dc 10/15 * Pt has received 12 units of insulin over the past 24hrs * 10 units of basal with Lantus * 2 units of bolus with NovoLog * BSGs [phone] mg/dl * BSGs well controlled over the past 24hrs but expecting hyperglycemia to occur today with daily dexamethasone and especially advanced diet. Steroids have their most profound effect on post-prandial BSGs. * Will empirically increase insulin regimen but will start conservatively since minimal effect on BSGs over the past 2 days with RTC steroids. * Goal is to maintain BSGs <180 mg/dl to facilitate healing 10/14/20 * BSG's have been well controlled at ICU goal range with a low-dose Lantus x1 yesterday and minimal correction received * Steroids tapering - will adjust Lantus and split BID. Ongoing Lantus only when BSG >140 mg/dL * Will also decrease Novolog to q6h checks and potentially loosen depending on trend in BSG's 10/13/20 * 80 yo M admitted to ICU on 10/12 for acute resp failure/COPD exacerbation. BSG's now elevated 2nd steroids (although plan to taper starting tomorrow. Pharmacy glycemic consult initiated 2nd ICU protocol parameters * BSG's ranged 178-198 mg/dL for the last 4 checks - only mildly hyperglycemic considering ICU goal range 140-180 mg/dL * Will initiate low-dose Lantus, given hyperglycemia is only mild and patient is NPO * Will initiate Novolog between moderate to severe stress/weight-based estimate PLAN FOR INPATIENT GLYCEMIC CONTROL: * Basal insulin * DC Lantus * Bolus insulin * NovoLog per scale ACHS or Q6hrs while NPO * Goal Range: Low 110 mg/dL - High 140 mg/dL * Correction Factor: 20 mg/dL/unit * Nutritional / Prandial insulin per carb ratio of 1 unit per 6 grams CHO consumed PLAN FOR DISCHARGE: * HbA1c of 5.7-6.4% indicates "pre-diabetes" --> ADA recommendation is to institute diabetes and atherosclerosis prevention
[2020-10-17] MEDS: ACETAMINOPHEN SUSP 325 MG/10.15 ML UDC PO PRN (14:25)
[2020-10-17] MEDS: ESCITALOPRAM OXALATE ORAL SOLN 5 MG/5 ML UDP PO SCH (15:41)
--- NOTE | 2020-10-17 21:12 | Hospitalist Progress Note ---
Date of Service October 17, 2020 Assessment & Plan (1) Acute respiratory failure with hypoxia and hypercapnia: Plan: Resolved. 2nd to right-sided pneumonia and COPD exacerbation. Intubated day of admission. Extubated 10/13. Bronch culture (was bronched day of admission) grew both pseudomonas + H flu betalactamase negative. Antibiotics -- Zosyn initially; changed to levaquin to cover pseudomonas from bronch (started 10/14, thus day #4 of levaquin; pseudomonas resistant to zosyn). Plan at least 7 days of levaquin. Amox will cover the H flu since it is betalactamase neg. Day #6 of appropriate therapy for the H. flu (was on zosyn, then amoxicillin). COVID testing was negative at time of admission. (2) Pneumonia: Plan: Right-sided. slowly clinically improving. Bronchoscopy cx with Pseudomonas Aeruginosa and H flu beta neg. day #4 of levaquin for pseudomonas - plan 7 days. day #6 of appropriate abx for H flu (zosyn, then amoxicillin). COVID-19 testing was negative. patient is fully vaccinated. (3) COPD exacerbation: Plan: Received 60 mg of Solu-Medrol in the emergency department and then started on 40 mg 4 times daily Subsequently transitioned to dexamethasone IV 6 mg daily by ICU prior to transfer to floor. Continue dexamethasone today; change to PO prednisone tomorrow on 10/18. Continue antibiotics for pneumonia as listed above Continue Brio Ellipta (ICS/LABA) DuoNebs as needed (4) UTI (urinary tract infection): Plan: 2nd pseudomonas + proteus. levaquin for pseudomonas (day #4 of such). zosyn, then amox for proteus - day #6 of appropriate abx for the proteus. gladis was d/c several days ago; voiding w/o difficulty. (5) Hypokalemia: Plan: resolved (6) Metabolic encephalopathy: Plan: Continues to improve with low-dose seroquel and time. 2nd to #1, #2, #3, #4. hospital psychosis/ICU psychosis also likely contributed. cont seroquel low-dose at bedtime. 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 Admitted to [facility] in September for such. Nonoperative management advised during that admission. ambulate as tolerated per 09/30/20 orthopedic progress note. DVT prophylaxis with apixaban 2.5 mg p.o. twice daily Continue PT/OT Has f/u with Dr Gan - [facility] - Monday, 10/20 in the clinic. (9) Stage 3b chronic kidney disease: Plan: stable BMP am (10) Chronic atrial fibrillation: Plan: Continue beta-gonsalo Continue apixaban 2.5 mg p.o. twice daily previously paced on monitor (11) Hypertension: Plan: resumed aldactone 12.5mg BID resumed lasix 40mg BID continue metoprolol BID (12) GERD (gastroesophageal reflux disease): Plan: Continue famotidine (13) CAD (coronary artery disease): Plan: No evidence of ACS. Continue asa. Metoprolol tartrate 12.5 mg p.o. twice daily (14) Chronic diastolic (congestive) heart failure: Plan: compensated weight is well below usual weights per the EMR (15) DM II (diabetes mellitus, type II), controlled: Plan: Glycemic consult appreciated. HbA1C 6.3% in August. Now 5.9% Appreciate pharmacy assistance. control is excellent (16) Status cardiac pacemaker: Plan: Paced rhythm 29/08 (17) Anemia: Plan: H/H stable anemic of chronic disease Continue to monitor (18) Hyponatremia: Plan: resolved (19) DVT prophylaxis: Plan: Eliquis If Cr stays <1.5 should increase dose to 5mg BID prior to discharge Plan: extensively updated by phone several times this week [facility] Admission and Anticipated Discharge Date Admission Date: October 12, 2020 Subjective patient asked multiple times during the visit "when am I going home? I want to go home with my ." I explained several times that he will need to return to rehab after discharge staff report he had uneventful night eating fair denies any dyspnea at rest does c/o right thigh pain (femur fracture) Review of Systems Review of Systems: gen - no fevers, mild fatigue CV - no chest pain pulm - no sputum production GI - no nausea or emesis Physical Exam Physical Exam: gen - a/o x 2 but not time; NAD neck - no JVD mouth - MMM heart - RRR, s1 s2, no murmur lungs - less wheezes today; mild rales bases - also improved abd - soft, obese, NT, ND, BS+ ext - no edema, pulses 2+ b/l psych - a/o x 2 only (person, place) Results & Data Results & Data ([facility]) Vital Signs (Past 12 Hours) Vital Signs Temp Pulse Resp BP Pulse Ox 10/17/20 15:24 36.7 C 70 20 154/98 H 94 10/17/20 13:54 69 18 96 10/17/20 09:53 70 155/72 H Laboratory Results Laboratory Results - last 24 hr 10/17/20 10/17/20 10/17/20 07:21 08:13 12:09 Sodium 139 Potassium 3.8 Chloride 102 Carbon Dioxide 33 H Anion Gap 4.0 BUN 50 H Creatinine 1.20 Est Cr Clr Drug Dosing 56.6 Est GFR ( Amer) 64.9 Est GFR (Non-Af Amer) 56.0 BUN/Creatinine Ratio 41.9 H Glucose 85 POC Glucose 97 128 H Calcium 9.5 10/17/20 10/17/20 17:13 20:57 Sodium Potassium Chloride Carbon Dioxide Anion Gap BUN Creatinine Est Cr Clr Drug Dosing Est GFR ( Amer) Est GFR (Non-Af Amer) BUN/Creatinine Ratio Glucose POC Glucose 146 H 121 H Calcium PG Care Time/CCT Total # of Minutes Spent Total Time Spent with Patient: Total time spent is greater than 50% in coordination of care (as documented) at patient's floor/unit and/or counseling patient: Coding Level of Care Code 44998 Subseq Hosp Care Lvl 3 Diagnoses Acute respiratory failure with hypoxia and hypercapnia J96.01; J96.02 Pneumonia J18.9 COPD exacerbation J44.1 UTI (urinary tract infection) N39.0 Hypokalemia E87.6 Metabolic encephalopathy G93.41 Dysphagia R13.10 Dysphagia type: esophageal phase 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 M97.01XA Encounter type: initial encounter Laterality: right Stage 3b chronic kidney disease N18.32 Chronic atrial fibrillation I48.20 Hypertension I10 Hypertension type: essential hypertension GERD (gastroesophageal reflux disease) K21.9 CAD (coronary artery disease) I25.10 Chronic diastolic (congestive) heart failure I50.32 DM II (diabetes mellitus, type II), controlled E11.9 Diabetes mellitus complication status: without complication Diabetes mellitus fci insulin use: 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 Status cardiac pacemaker Z95.0 Anemia D64.9 Hyponatremia E87.1 DVT prophylaxis Z29.9 (1) Dysphagia Dysphagia type: esophageal phase Qualified Code(s): R13.10 - Dysphagia, unspecified (2) 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 Encounter type: initial encounter Laterality: right Qualified Code(s): M97.01XA - Periprosthetic fracture around internal prosthetic right hip joint, initial encounter (3) DM II (diabetes mellitus, type II), controlled Diabetes mellitus complication status: without complication Diabetes mellitus fci insulin use: without fci use Qualified Code(s): E11.9 - Type 2 diabetes mellitus without complications (4) Hypertension Hypertension type: essential hypertension Qualified Code(s): I10 - Essential (primary) hypertension
[2020-10-17] MEDS: QUEtiapine FUMARATE 25 MG TABLET PO SCH (21:28)
[2020-10-17] MEDS: SIMVASTATIN 10 MG TAB NG SCH (21:29)
[2020-10-17] MEDS: TRAVOPROST Z 0.004% OPH SOLN 2.5 ML BTL OPB SCH (21:30)
[2020-10-17] MEDS: ACETAMINOPHEN 500 MG TAB PO SCH (21:30)
[2020-10-17] MEDS: FLUTICASONE/VILANTEROL 100/25MCG 14 PUFFS/INHALER INH SCH (21:30)
[2020-10-18 07:56] LABS: Hematocrit (blood only) 34.7 % (42-52); Hemoglobin 10.9 g/dL (14.0-18.0); Mean Corpuscular Hemoglobin 30.9 pg (25-34); Mean Corpuscular Hgb Conc 31.4 g/dL (32-36); Mean Corpuscular Volume 98.3 fL (80-100); Mean Platelet Volume 10.6 fL (7.4-10.4); Platelet Count 306 K/uL (130-400); RDW Coefficient of Variation 16.2 % (11.5-14.5); RDW Standard Deviation 57.4 fL (36.4-46.3); Red Blood Count 3.53 M/uL (4.7-6.1); White Blood Count 8.44 K/uL (4.8-10.8)
[2020-10-18 08:20] LABS: BUN Creatinine Ratio 34.1 (10-20); Calcium 8.9 mg/dl (8.5-10.1); Creatinine Clr Calc Pharmacy 56.9 ml/min; Est GFR (African American) 65.5 ml/min; Est GFR (Non-African American) 56.5 ml/min; Potassium 3.5 mmol/L (3.5-5.1)
[2020-10-18] MEDS: ACETAMINOPHEN 500 MG TAB PO SCH ×3 (09:03→21:00)
[2020-10-18] MEDS: ASPIRIN 81 MG CHEW NG SCH (09:03)
[2020-10-18] MEDS: allopurinoL 300 MG TAB NG SCH (09:04)
[2020-10-18] MEDS: FAMOTIDINE 20 MG in SYRINGE 3 ML IV SCH (09:04)
[2020-10-18] MEDS: FLUTICASONE PROPIONATE NA SPR 16 GM BTL SCH (09:04)
[2020-10-18] MEDS: AMOXICILLIN 500 MG CAP PO SCH ×3 (09:04→20:51)
[2020-10-18] MEDS: FUROSEMIDE 40 MG TAB PO SCH ×2 (09:05→17:15)
[2020-10-18] MEDS: levoFLOXacin 750 MG TAB PO SCH (09:05)
[2020-10-18] MEDS: APIXABAN 2.5 MG TAB PO SCH ×2 (09:05→20:52)
[2020-10-18] MEDS: SPIRONOLACTONE 12.5 MG TAB PO SCH (09:06)
[2020-10-18] MEDS: METOPROLOL TARTRATE 25 MG TAB PO SCH ×2 (09:10→20:49)
[2020-10-18] MEDS: INSULIN ASPART 100 UNITS/ML 3 ML PEN SC SCH ×4 (09:13→20:55)
[2020-10-18] MEDS ORDERED: SPIRONOLACTONE 12.5 MG TAB PO ONE (10:31)
[2020-10-18] MEDS ORDERED: predniSONE 20 MG TAB PO STA (13:26)
[2020-10-18] MEDS ORDERED: PANTOprazole 40 MG TAB PO STA (13:26)
--- NOTE | 2020-10-18 13:28 | Hospitalist Progress Note ---
Date of Service October 18, 2020 Assessment & Plan (1) Acute respiratory failure with hypoxia and hypercapnia: Plan: Resolved. Off NC O2 for 2+ days. 2nd to right-sided pneumonia and COPD exacerbation. Intubated 10/12 shortly after admission. Extubated 10/13. Bronch performed 10/12 - cultures grew pseudomonas (resistant to zosyn) and H flu betalactamase negative. Changed to levaquin on 10/14 for the pseudomonas. Thus, day #5 of 7 to treat the pseudomonas in lungs. Zosyn would have been adequate for H flu. Changed to amoxicillin on 10/15/20. Thus, day #7 of appropriate abx for the H flu. (2) Pneumonia: Plan: Right-sided. Clinically improved. Bronchoscopy culture with Pseudomonas Aeruginosa and H flu beta neg. Day #5 of levaquin. Plan 7 days of levaquin for pseudomonas. Day #7 of IV/PO therapy (zosyn --> amoxicillin) for H flu. (3) COPD exacerbation: Plan: Improving. Has been on IV steroids since 10/12/20. IV steroids d/c yesterday. Start prednisone 40mg daily today. Would wean by 10mg every 2-3 days. Continue antibiotics for pneumonia as noted above. Continue Hoa Ellipta. DuoNebs prn. (4) UTI (urinary tract infection): Plan: 2nd pseudomonas + proteus. Pseudomonas - like the bronch culture w/ pseudomonas - resistant to the previously used zosyn. Thus, today is day #5 of levaquin for the pseudomonas. Proteus - sensitive to zosyn and amoxicillin. Thus, he has received 7 days of appropriate antibiotics for the proteus (was on zosyn then amox added 10/15/20). Would perform RAFITA to r/o prostatitis as this will affect length of abx course. Curtis removed and voiding well. (5) Hypokalemia: Plan: resolved (6) Metabolic encephalopathy: Plan: resolving/resolved. symptoms including sleep improved with seroquel. cont seroquel low-dose 12.5mg HS. (7) Dysphagia: Plan: Speech-language pathology consulted after patient was extubated. Speech saw - cleared for diet - tolerating such. (8) 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: Plan: RIGHT. Admitted to [facility] in September for such. Nonoperative management advised during that admission. ambulate as tolerated per 09/30/20 orthopedic progress note. DVT prophylaxis with apixaban 2.5 mg p.o. twice daily Continue PT/OT Patient was scheduled to see Dr Gan, [facility] ortho, on 10/20. If patient still hospitalized on Monday would simply consult him to see him in the hospital. (9) Stage 3b chronic kidney disease: Plan: stable BMP am (10) Chronic atrial fibrillation: Plan: Continue beta-gonsalo Continue apixaban 2.5 mg p.o. twice daily If Cr remains <1.5 he should be on 5mg BID previously paced on monitor (11) Hypertension: Plan: resumed aldactone resumed lasix cont metoprolol (12) GERD (gastroesophageal reflux disease): Plan: Continue famotidine (13) CAD (coronary artery disease): Plan: No evidence of ACS. Continue asa. Metoprolol tartrate 12.5 mg p.o. twice daily (14) Chronic diastolic (congestive) heart failure: Plan: compensated weight is well below usual weights per the EMR cont BB, aldactone BID, lasix BID follows w/ Dr [facility] (15) DM II (diabetes mellitus, type II), controlled: Plan: Glycemic consult appreciated. HbA1C 6.3% in August. Now 5.9% Appreciate pharmacy assistance. (16) Status cardiac pacemaker: Plan: Paced rhythm 29/08 (17) Anemia: Plan: H/H stable anemic of chronic disease Continue to monitor (18) Hyponatremia: Plan: resolved (19) DVT prophylaxis: Plan: Eliquis If Cr stays <1.5 should increase dose to 5mg BID Plan: extensively updated by phone yesterday and again today dispo - [facility] for rehab new authorization from insurance will be needed Admission and Anticipated Discharge Date Admission Date: October 12, 2020 Subjective patient without any complaints today feeling good like yesterday asks about going home with his again he was reminded he would return to [facility] for rehab because of recent right periprosthetic femur fracture we started scheduled tylenol TID and this seems to be helping his pain eating well during the visit - for the first time since admission - he was a/o x 3 Review of Systems Review of Systems: gen - no anorexia; no fevers or chills CV - no chest pain pulm - no dyspnea at rest; still w/ mild cough GI - no abd pain; moving bowels per staff Physical Exam Physical Exam: gen - looks good today, a/o x 3 neck - no JVD mouth - MMM heart - RRR, s1 s2 lungs - mild wheezes b/l and mild rales bases -- improved from prior exams abd - soft, obese, NT, BS+ ext - no edema, pulses 2+ b/l Results & Data Results & Data ([facility]) Vital Signs (Past 12 Hours) Vital Signs Temp Pulse Resp BP Pulse Ox 10/18/20 07:32 36.8 C 71 18 152/87 H 93 Laboratory Results Laboratory Results - last 24 hr 10/17/20 10/17/20 10/18/20 17:13 20:57 07:13 WBC RBC Hgb Hct MCV MCH MCHC RDW Std Deviation RDW Coeff of Inez Plt Count MPV Sodium 139 Potassium 3.5 Chloride 104 Carbon Dioxide 31 Anion Gap 4.0 BUN 41 H Creatinine 1.19 Est Cr Clr Drug Dosing 56.9 Est GFR ( Amer) 65.5 Est GFR (Non-Af Amer) 56.5 BUN/Creatinine Ratio 34.1 H Glucose 93 POC Glucose 146 H 121 H Calcium 8.9 10/18/20 10/18/20 10/18/20 07:13 08:20 12:13 WBC 8.44 RBC 3.53 L Hgb 10.9 L Hct 34.7 L MCV 98.3 MCH 30.9 MCHC 31.4 L RDW Std Deviation 57.4 H RDW Coeff of Inez 16.2 H Plt Count 306 MPV 10.6 H Sodium Potassium Chloride Carbon Dioxide Anion Gap BUN Creatinine Est Cr Clr Drug Dosing Est GFR ( Amer) Est GFR (Non-Af Amer) BUN/Creatinine Ratio Glucose POC Glucose 104 H 113 H Calcium PG Care Time/CCT Total # of Minutes Spent Total Time Spent with Patient: Total time spent is greater than 50% in coordination of care (as documented) at patient's floor/unit and/or counseling patient: Coding Level of Care Code 75566 Subseq Hosp Care Lvl 2 Diagnoses Acute respiratory failure with hypoxia and hypercapnia J96.01; J96.02 Pneumonia J18.9 COPD exacerbation J44.1 UTI (urinary tract infection) N39.0 Hypokalemia E87.6 Metabolic encephalopathy G93.41 Dysphagia R13.10 Dysphagia type: esophageal phase 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 M97.01XA Encounter type: initial encounter Laterality: right Stage 3b chronic kidney disease N18.32 Chronic atrial fibrillation I48.20 Hypertension I10 Hypertension type: essential hypertension GERD (gastroesophageal reflux disease) K21.9 CAD (coronary artery disease) I25.10 Chronic diastolic (congestive) heart failure I50.32 DM II (diabetes mellitus, type II), controlled E11.9 Diabetes mellitus complication status: without complication Diabetes mellitus assisted insulin use: without assisted use Status cardiac pacemaker Z95.0 Anemia D64.9 Hyponatremia E87.1 DVT prophylaxis Z29.9 (1) Dysphagia Dysphagia type: esophageal phase Qualified Code(s): R13.10 - Dysphagia, unspecified (2) 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 Encounter type: initial encounter Laterality: right Qualified Code(s): M97.01XA - Periprosthetic fracture around internal prosthetic right hip joint, initial encounter (3) DM II (diabetes mellitus, type II), controlled Diabetes mellitus complication status: without complication Diabetes mellitus intermediate card tender insulin use: without intermediate card tender use Qualified Code(s): E11.9 - Type 2 diabetes mellitus without complications (4) Hypertension Hypertension type: essential hypertension Qualified Code(s): I10 - Essential (primary) hypertension
[2020-10-18] MEDS: SPIRONOLACTONE 25 MG TAB PO SCH (17:16)
[2020-10-18] MEDS: ESCITALOPRAM OXALATE ORAL SOLN 5 MG/5 ML UDP PO SCH (17:16)
[2020-10-18] MEDS: TRAVOPROST Z 0.004% OPH SOLN 2.5 ML BTL OPB SCH (20:47)
[2020-10-18] MEDS: QUEtiapine FUMARATE 25 MG TABLET PO SCH (20:51)
[2020-10-18] MEDS: SIMVASTATIN 10 MG TAB NG SCH (20:52)
[2020-10-18] MEDS: FLUTICASONE/VILANTEROL 100/25MCG 14 PUFFS/INHALER INH SCH (20:54)
[2020-10-19 07:41] LABS: Hematocrit (blood only) 35.2 % (42-52); Hemoglobin 11.1 g/dL (14.0-18.0); Mean Corpuscular Hemoglobin 31.3 pg (25-34); Mean Corpuscular Hgb Conc 31.5 g/dL (32-36); Mean Corpuscular Volume 99.2 fL (80-100); Mean Platelet Volume 10.5 fL (7.4-10.4); Platelet Count 298 K/uL (130-400); RDW Standard Deviation 58.3 fL (36.4-46.3); Red Blood Count 3.55 M/uL (4.7-6.1); White Blood Count 8.13 K/uL (4.8-10.8)
[2020-10-19 08:18] LABS: BUN Creatinine Ratio 32.9 (10-20); Calcium 9.1 mg/dl (8.5-10.1); Creatinine Clr Calc Pharmacy 56.9 ml/min; Est GFR (African American) 65.5 ml/min; Est GFR (Non-African American) 56.5 ml/min; Potassium 3.9 mmol/L (3.5-5.1)
--- NOTE | 2020-10-19 08:37 | Pharmacy Report ---
Pharmacy Glycemic Short Note 2 - Date of Service October 19, 2020 - Glycemic Short BSG Results (Last 24 hours): 10/18/20 10/18/20 10/18/20 12:13 17:18 20:41 Glucose POC Glucose 113 H 117 H 143 H 10/19/20 10/19/20 07:03 08:00 Glucose 107 H POC Glucose 105 H OUTPATIENT ANTIDIABETIC REGIMEN: * N/A * HbA1c 5.9% on 10/13/20 ASSESSMENT: 10/19 * Blood sugars yesterday were [phone] mg/dL. * Patient received 2 units of bolus insulin. * Fasting today was 105 mg/dL. * Steroids changed from dexamethasone 6 mg IV daily to prednisone 40 mg PO daily. Add back carbohydrate ratio for now. 10/17 * Pt has received 14 units of insulin over the past 24hrs * 4 units of basal with Lantus * 10 units of bolus with NovoLog * BSGs 75-118 mg/dl * Dexamethasone 6mg IV - last dose today * DC Lantus * Continue CF/CR today for steroid coverage and loosen or DC tomorrow depending on fasting BSG tomorrow morning 10/16 * Pt has received 17 units of insulin over the past 24hrs * 10 units of basal with Lantus * 7 units of bolus with NovoLog * BSGs [phone] mg/dl * AM fasting BSG slightly below goal range for inpatient targets. Will decrease basal insulin by 20% * No changes needed to CF/CR. * Insulin will likely need dc once steroids tapered/dc PLAN FOR INPATIENT GLYCEMIC CONTROL: * Basal insulin - none * Bolus insulin * NovoLog per scale ACHS or Q6hrs while NPO * Goal Range: Low 110 mg/dL - High 140 mg/dL * Correction Factor: 25 mg/dL/unit * Nutritional / Prandial insulin per carb ratio of 1 unit per 6 grams CHO consumed PLAN FOR DISCHARGE: * HbA1c of 5.7-6.4% indicates "pre-diabetes" --> ADA recommendation is to institute diabetes and atherosclerosis prevention
[2020-10-19] MEDS: AMOXICILLIN 500 MG CAP PO SCH ×3 (09:06→20:13)
[2020-10-19] MEDS: METOPROLOL TARTRATE 25 MG TAB PO SCH ×2 (09:07→20:14)
[2020-10-19] MEDS: APIXABAN 2.5 MG TAB PO SCH ×2 (09:07→20:13)
[2020-10-19] MEDS: FUROSEMIDE 40 MG TAB PO SCH ×2 (09:07→16:05)
[2020-10-19] MEDS: allopurinoL 300 MG TAB NG SCH (09:08)
[2020-10-19] MEDS: PANTOprazole 40 MG TAB PO SCH (09:08)
[2020-10-19] MEDS: levoFLOXacin 750 MG TAB PO SCH (09:08)
[2020-10-19] MEDS: predniSONE 20 MG TAB PO SCH (09:08)
[2020-10-19] MEDS: SPIRONOLACTONE 25 MG TAB PO SCH ×2 (09:08→16:05)
[2020-10-19] MEDS: FLUTICASONE PROPIONATE NA SPR 16 GM BTL SCH (09:09)
[2020-10-19] MEDS: ASPIRIN 81 MG CHEW NG SCH (09:09)
[2020-10-19] MEDS: ACETAMINOPHEN 500 MG TAB PO SCH ×3 (09:09→20:12)
[2020-10-19] MEDS: INSULIN ASPART 100 UNITS/ML 3 ML PEN SC SCH ×4 (09:11→21:24)
[2020-10-19] MEDS: ESCITALOPRAM OXALATE ORAL SOLN 5 MG/5 ML UDP PO SCH (16:04)
--- NOTE | 2020-10-19 18:28 | Hospitalist Progress Note ---
Date of Service October 19, 2020 Assessment & Plan (1) Acute respiratory failure with hypoxia and hypercapnia: Plan: - Resolved; Maintaining appropriate saturations on RA -- Related to R sided Pneumonia and COPD Exacerbation - Intubated 10/12 shortly after admission and extubated on 10/13 - Bronchoscopy on 10/12 - pseudomonas and H. flu betalactamase negative - Continue Levaquin and Amoxicillin - Day 6 of 7 of treatment -- Initially treated with Zosyn which would have covered H. flu but not Pseudomonas (2) Pneumonia: Plan: - Right-sided; Clinically improved - Bronchoscopy culture with Pseudomonas Aeruginosa and H flu beta neg. -- Day #6 of levaquin. Plan 7 days of levaquin for pseudomonas. -- Day #7 of IV/PO therapy (zosyn --> amoxicillin) for H flu. (3) COPD exacerbation: Plan: - Improving - Initially treated with IV steroid converted to orals - Prednisone 40 mg daily x 3 days and wean by 10 mg every 2-3 days (4) UTI (urinary tract infection): Plan: - 2nd pseudomonas + proteus. -- Proteus - sensitive to zosyn and amoxicillin. Thus, he has received appropriate antibiotics for the proteus (was on zosyn then amox added 10/15/20). - Curtis removed and voiding well. (5) Metabolic encephalopathy: Plan: - Resolved - Symptoms including sleep improved with seroquel. - cont seroquel low-dose 12.5mg HS. (6) Dysphagia: Plan: - Speech-language pathology consulted after patient was extubated - cleared for diet and tolerating (7) 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: Plan: - RIGHT; admitted to [facility] in September - Nonoperative management advised during that admission. -- Ambulate as tolerated per 09/30/20 orthopedic progress note. DVT prophylaxis with apixaban 2.5 mg p.o. twice daily Continue PT/OT Patient was scheduled to see Dr Gan, [facility] ortho, on 10/20 - recommend reschedule or can touch base with Dr. Gan (8) Stage 3b chronic kidney disease: Plan: - STABLE; At baseline (1.2-1.5) (9) Chronic atrial fibrillation: Plan: - Continue Metoprolol 12.5 mg BID - Normally on Apixaban 2.5 mg BID - Cr intermittently is 1.5 or greater but has been stabilized -- Renal function could be monitored as outpatient and may be able to move to 5 mg BID dosing - Follows with [facility] (10) Hypertension: Plan: - Continue diuretics and Metoprolol (11) GERD (gastroesophageal reflux disease): Plan: - Continue famotidine (12) CAD (coronary artery disease): Plan: - No evidence of ACS. - Continue ASA - Metoprolol tartrate 12.5 mg p.o. twice daily (13) Chronic diastolic (congestive) heart failure: Plan: - Compensated; weight is well below usual weights per the EMR - cont BB, aldactone BID, lasix BID - follows w/ Dr Parson - [facility] (14) DM II (diabetes mellitus, type II), controlled: Plan: - Glycemic consult appreciated. - HbA1C 6.3% in August. Now 5.9% - Appreciate pharmacy assistance. (15) Status cardiac pacemaker: Plan: - Paced rhythm 29/08 (16) Anemia: Plan: - H/H stable - anemic of chronic disease - Continue to monitor Plan: - Updated over the phone Awaiting insurance authorization for [facility]; medically suitable for discharge Admission and Anticipated Discharge Date Admission Date: October 12, 2020 Subjective Reports feeling well today. Mostly focused on wanting to get out of the hospital. Has maintained on RA and denies SOB. He is tolerating a diet and verbalizes no other complaints Review of Systems Review of Systems: REVIEW OF SYSTEMS General/Constitutional: Denies fever/chills ENT: Denies nasal drainage, sore throat, trouble swallowing Cardiovascular: Denies chest pain, palpitations, edema Respiratory: Denies cough, SOB GI: Denies nausea, vomiting, abdominal pain : Denies dysuria Musculoskeletal: Denies joint/muscle aches Physical Exam Physical Exam: PHYSICAL EXAM General Appearance: WDWN in NAD who is A&O x 3 HEENT: Head is normocephalic/atraumatic; extremely MAKAH Neck: Supple; Trachea midline; Neg JVD Heart: RRR with no M/G/R Lungs: CTA in all lung quarles bilaterally; Respirations unlabored; Neg accessory muscle use Abdomen: Soft, non-tender, non-distended; Positive BS x 4 quadrants Extremities: Neg cyanosis or edema Neurological: Speech clear; Gross motor/sensory function intact; Neg focal neurologic deficits Psychiatric: Appropriate mood/affect Skin: Normal Color; Warm/Dry Results & Data Results & Data ([facility]) Vital Signs (Past 12 Hours) Vital Signs Temp Pulse Pulse Resp BP Pulse Ox 10/19/20 15:08 36.7 C 70 16 119/56 L 94 10/19/20 07:32 36.4 C L 67 16 128/76 92 PG Care Time/CCT Total # of Minutes Spent Total Time Spent with Patient: Total time spent is greater than 50% in coor dination of care (as documented) at patient's floor/unit and/or counseling patient: Coding Level of Care Code 06265 Subseq Hosp Care Lvl 3 Diagnoses Acute respiratory failure with hypoxia and hypercapnia J96.01; J96.02 Pneumonia J18.9 COPD exacerbation J44.1 UTI (urinary tract infection) N39.0 Metabolic encephalopathy G93.41 Dysphagia R13.10 Dysphagia type: esophageal phase 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 M97.01XA Encounter type: initial encounter Laterality: right Stage 3b chronic kidney disease N18.32 Chronic atrial fibrillation I48.20 Hypertension I10 Hypertension type: essential hypertension GERD (gastroesophageal reflux disease) K21.9 CAD (coronary artery disease) I25.10 Chronic diastolic (congestive) heart failure I50.32 DM II (diabetes mellitus, type II), controlled E11.9 Diabetes mellitus complication status: without complication Diabetes mellitus intermodal dispatcher insulin use: without intermediate use Status cardiac pacemaker Z95.0 Anemia D64.9 (1) Dysphagia Dysphagia type: esophageal phase Qualified Code(s): R13.10 - Dysphagia, unspecified (2) 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
[2020-10-19] MEDS: SIMVASTATIN 10 MG TAB NG SCH (20:12)
[2020-10-19] MEDS: QUEtiapine FUMARATE 25 MG TABLET PO SCH (20:12)
[2020-10-19] MEDS: TRAVOPROST Z 0.004% OPH SOLN 2.5 ML BTL OPB SCH (20:13)
[2020-10-19] MEDS: FLUTICASONE/VILANTEROL 100/25MCG 14 PUFFS/INHALER INH SCH (20:14)
[2020-10-20] MEDS: METOPROLOL TARTRATE 25 MG TAB PO SCH (08:28)
[2020-10-20] MEDS: FUROSEMIDE 40 MG TAB PO SCH (08:28)
[2020-10-20] MEDS: SPIRONOLACTONE 25 MG TAB PO SCH (08:29)
[2020-10-20] MEDS: FLUTICASONE PROPIONATE NA SPR 16 GM BTL SCH (08:29)
[2020-10-20] MEDS: allopurinoL 300 MG TAB NG SCH (08:29)
[2020-10-20] MEDS: APIXABAN 2.5 MG TAB PO SCH (08:29)
[2020-10-20] MEDS: predniSONE 20 MG TAB PO SCH (08:29)
[2020-10-20] MEDS: AMOXICILLIN 500 MG CAP PO SCH (08:29)
[2020-10-20] MEDS: PANTOprazole 40 MG TAB PO SCH (08:29)
[2020-10-20] MEDS: levoFLOXacin 750 MG TAB PO SCH (08:30)
[2020-10-20] MEDS: ASPIRIN 81 MG CHEW NG SCH (08:32)
[2020-10-20] MEDS: ACETAMINOPHEN 500 MG TAB PO SCH ×2 (08:33→12:58)
[2020-10-20] MEDS: INSULIN ASPART 100 UNITS/ML 3 ML PEN SC SCH ×2 (09:17→12:59)
--- NOTE | 2020-10-20 13:42 | Discharge Summary ---
Date of Service October 20, 2020 Admission HPI Per Admitting Provider 80yo male - well known to the [facility] hospitalist service - with recent hospitalization from 09/28 to 10/02 for right-sided periprosthetic femur fracture treated nonoperatively. He also has h/o chronic diastolic CHF, CAD s/p CABG, T2DM, COPD, SANDOR on CPAP, pacemaker, CKD stage 3, and permanent a.fib on eliquis. Patient was discharged from [facility] to [facility] for rehab following his recent stay. was at bedside during my admission assessment and reports rehab was going poorly. He only walked 18 feet on one occasion. He was eating poorly since his arrival in rehab, and then his appetite worsened significantly yesterday morning ( reports he only ate bites of breakfast). Last pm his received a call from the [facility]pc that he was confused and agitated and was asked to come to help him calm down. She reports he was very confused and was only able to recognize her otherwise he was talking insensibly. Per his he had been using his CPAP nightly but last pm he did not use it because of his agitation/confusion. Limited notes from the SNF suggest he was incontinent of urine overnight. Upon arrival to [facility] he was very confused and agitated. He received a small dose of IV ativan and became more somnolent after receiving such. I arrived to the bedside after he received the ativan and could not obtain any history from the patient. I immediately asked nursing to page respiratory to place him on BIPAP and to give him an hour-long duoneb. Additionally, griffith, doxycycline IV, and IV solumedrol were also ordered. reports that he was ventilated for pneumonia in 2017. When asked if he would want full code measures including intubation/mech ventilation she feels he would indeed desire such. I did relationship counselor his before leaving the room that he may indeed need intubation given his critical status. Following the visit I informed Dr Magdaleno from the ICU about his tenuous status and requested ICU admission. Principal Diagnosis Acute hypoxic respiratory failure COPD exacerbation Right lower lobe pneumonia Discharge Exam General: well developed, well nourished, elderly male in no acute distress, comfortable, frail appearing Neck: supple, trachea midline, normal thyroid Lungs: clear to auscultation bilaterally, normal respiratory effort, no accessory muscle use, no distress, diminished breath sounds overall Heart: regular S1 and S2, no murmur, peripheral pulses normal, capillary refill normal, no edema Chest: barrel chested Abdomen: soft, NT, ND, + BS, no hepatomegaly, normal to percussion Extremities: normal in appearance, no cyanosis, no petechiae, strength is slightly diminished diffusely Neuro: awake, cooperative, moves all extremities, no focal motor deficits, CN II-XII intact, sensation in extremities intact, normal speech Skin: warm, dry, no rash, normal turgor Psych: Awake, alert oriented x 3, euthymic affect Discharge Data Allergies Allergy/AdvReac Type Severity Reaction Status Date / Time No Known Drug Allergies Allergy Unknown Unknown Verified 10/12/20 07:03 Consultations 10/12/20 07:30 ED Decision to Admit Stat 10/12/20 10:57 Consult Senior [employer] Developer Routine Hospital Course (1) Acute respiratory failure with hypoxia and hypercapnia: - Resolved; Maintaining appropriate saturations on RA for 48 hours -- Related to R sided Pneumonia and COPD Exacerbation - Intubated 10/12 shortly after admission and extubated on 10/13 - Bronchoscopy on 10/12 - pseudomonas and H. flu betalactamase negative - Continue Levaquin and Amoxicillin - completed 7 days of treatment, no further antibiotics needed on discharge (2) Pneumonia: - Right-sided; Clinically improved - Bronchoscopy culture with Pseudomonas Aeruginosa and H flu beta neg. -- Day #7 of levaquin -- Day #7 of IV/PO therapy (zosyn --> amoxicillin) for H flu. no further antibiotics needed no fever, WBC normal, breathing well (3) COPD exacerbation: - Improving - Initially treated with IV steroid converted to orals - Prednisone 40 mg daily, change to 30mg on discharge (30mg x 3, 20mg x 3 and 10mg x 3) (4) UTI (urinary tract infection): - 2nd pseudomonas + proteus. -- Proteus - sensitive to zosyn and amoxicillin. Thus, he has received appropriate antibiotics for the proteus (was on zosyn then amox added 10/15/20). - Griffith removed and voiding well for a few days (5) Metabolic encephalopathy: - Resolved - Symptoms including sleep improved with seroquel. - no need to continue Seroquel back at SNF but could try it if he has further issues with sleep, confusion (6) Dysphagia: - Speech-language pathology consulted after patient was extubated - cleared for diet and tolerating (7) 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: - RIGHT; admitted to [facility] in September - Nonoperative management advised during that admission. -- Ambulate as tolerated per 09/30/20 orthopedic progress note. DVT prophylaxis with apixaban 2.5 mg p.o. twice daily Continue PT/OT Patient was scheduled to see Dr Gan, [facility] ortho, on 10/20 - recommend reschedule (8) Stage 3b chronic kidney disease: - STABLE; At baseline (1.2-1.5) (9) Chronic atrial fibrillation: - Continue Metoprolol 12.5 mg BID - Normally on Apixaban 2.5 mg BID - Cr intermittently is 1.5 or greater but has been stabilized -- Renal function could be monitored as outpatient and may be able to move to 5 mg BID dosing - Follows with [facility] (10) Hypertension: - Continue diuretics and Metoprolol (11) GERD (gastroesophageal reflux disease): - Continue famotidine (12) CAD (coronary artery disease): - No evidence of ACS. - Continue ASA - Metoprolol tartrate 12.5 mg p.o. twice daily (13) Chronic diastolic (congestive) heart failure: - Compensated; weight is well below usual weights per the EMR - cont BB, aldactone BID, lasix BID - follows w/ Dr Parson - [facility] (14) DM II (diabetes mellitus, type II), controlled: - Glycemic consult appreciated. - HbA1C 6.3% in August. Now 5.9% - Appreciate pharmacy assistance. (15) Status cardiac pacemaker: - Paced rhythm 29/08 (16) Anemia: - H/H stable - anemic of chronic disease - Continue to monitor discharge to [facility]; medically suitable for discharge Total Time Total Time Spent Total Time Spent (In Minutes): 33 Discharge Plan Discharge Items Patient Disposition: Transfer Half-Way Fac Reason For Visit: ACUTE RESP FAILURE, PNEUMONIA Discharge Diagnosis: Acute respiratory failure COPD exacerbation Right lower lobe pneumonia Condition on Discharge: Good Activity: Resume your previous activity Non-emergency contact: Primary Care Provider Call non-emergency contact if: you have any medication questions and your symptoms worsen Follow-up/Referrals: Shanthi Benavides [Primary Care Provider] - (follow up with provider in a week) Diet: Carb Consistent or DM2 and Heart Healthy Addtl Attending Provider Instructions: Medications: - PREDNISONE: complete a brief taper, starting 10/21 take 30mg daily x 3 days, then 20mg daily x 3 days then 10mg daily x 3 days and stop COPD exacerbation, pneumonia, UTI completed full 7 days of antibiotics, Levofloxacin and Amoxicillin, initially on Zosyn now on Prednisone taper for full details see discharge summary from 10/20/20 Pending Studies at Discharge: No Stand-Alone Forms: My [facility] Skilled Items Patient informed of condition?: Yes DNR: No Discharge Level of Care: Skilled Communicable Disease: No Discharge Prognosis: Stable Lines: None Urinary Catheter: No Medications and DC Order Prescriptions: New prednisone 10 mg tablet 10 mg PO DAILY 9 Days Qty: 18 RF: 0 Continued ipratropium-albuterol 0.5 mg-3 mg(2.5 mg base)/3 mL Solution For Nebulization 3 ml INHALATION Q4H PRN (Reason: Shortness Of Breath) Qty: 0 RF: 0 aspirin 81 mg Tablet,Delayed Release (Dr/Ec) 81 mg PO QAM Qty: 0 RF: 0 ferrous sulfate 325 mg (65 mg iron) Tablet 325 mg PO QAM Qty: 0 RF: 0 fluticasone propion-salmeterol [Advair Diskus] 500-50 mcg/dose blister with device 1 inh INH BID Qty: 60 RF: 11 travoprost 0.004 % drops 1 drp OPB HS RF: 0 fluticasone propionate [Flonase Allergy Relief] 50 mcg/actuation spray,suspension 2 spray INTRANASAL QAM Qty: 18.2 RF: 5 allopurinol 300 mg tablet 300 mg PO QAM Qty: 30 RF: 5 furosemide 40 mg tablet 40 mg PO BID RF: 0 vitamin B complex tablet 1 tab PO QAM RF: 0 simvastatin 10 mg tablet 10 mg PO HS RF: 0 pantoprazole [Protonix] 40 mg tablet,delayed release (DR/EC) 40 mg PO DAILYBB RF: 0 spironolactone 25 mg tablet 12.5 - 25 mg PO BID RF: 0 polyethylene glycol 3350 [Miralax] 17 gram powder in packet 17 g PO DAILY RF: 0 nitroglycerin [Nitrostat] 0.4 mg tablet, sublingual 0.4 mg Sublingual UD PRN (Reason: chest pain) RF: 0 oxycodone-acetaminophen [Percocet] 5-325 mg tablet 1 tab PO Q4H PRN (Reason: pain scale 5-10) RF: 0 ascorbic acid (vitamin C) [Vitamin C] 1,000 mg Tablet 1 g PO QAM RF: 0 zinc 50 mg Tablet 50 mg PO QAM RF: 0 metoprolol tartrate 25 mg tablet 12.5 - 25 mg PO DIRECTED RF: 0 escitalopram oxalate [Lexapro] 5 mg tablet 5 mg PO QDD RF: 0 acetaminophen [Tylenol] 325 mg Tablet 650 mg PO Q4 MDD 3g PRN (Reason: Fever Or Pain) RF: 0 docusate sodium 100 mg Capsule 100 mg PO BID Qty: 20 RF: 0 Eliquis 2.5 mg tablet 2.5 mg PO BID Qty: 60 RF: 1 Discharge Orders: Discharge Order (Routine); Ordered 10/20/20 Ordered By: Milo Ugalde Admission Data Admit Date/Time: 10/12/20 09:12 Attending Provider: Milo Ugalde Admit Provider: Ken Dillon Primary Care Provider: Shanthi Benavides Other Providers: Ken Dillon ; Dennis Magdaleno Other Interventions: Discharge Summary Assessment (RN) Last Done: 10/20/20 12:49 Coding Level of Care Code D/C DAY MANAGEMENT >30 MINS Diagnoses Acute respiratory failure with hypoxia and hypercapnia J96.01; J96.02 Pneumonia J18.9 COPD exacerbation J44.1 UTI (urinary tract infection) N39.0 Metabolic encephalopathy G93.41 Dysphagia R13.10 Dysphagia type: esophageal phase 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 M97.01XA Encounter type: initial encounter Laterality: right Stage 3b chronic kidney disease N18.32 Chronic atrial fibrillation I48.20 Hypertension I10 Hypertension type: essential hypertension GERD (gastroesophageal reflux disease) K21.9 CAD (coronary artery disease) I25.10 Chronic diastolic (congestive) heart failure I50.32 DM II (diabetes mellitus, type II), controlled E11.9 Diabetes mellitus complication status: without complication Diabetes mellitus halfway insulin use: without long term care pharmacist use Status cardiac pacemaker Z95.0 Anemia D64.9
== END 2020-10-20 14:57 | DRG 208 ==
LOC: ED 05:28 → 1E 09:12 → SUATTDRO 09:12 → 1E 10:36 → 2N 10-14 15:00 → 3N 10-17 09:23

== ENCOUNTER 2021-01-22 15:49 | Inpatient (IN) ==
[2021-01-22] MEDS ORDERED: ALBUT/IPRATROP 3MG/0.5MG NEB 3 ML VIAL NEB STA (16:40)
--- NOTE | 2021-01-22 16:40 | Emergency Department Note ---
History of Present Illness General Chief complaint: Weakness Stated complaint: Weakness, Unable to Ambulate Time Seen by Provider: 01/22/21 16:19 Source: family Mode of arrival: EMS Limitations: altered mental status History of Present Illness Provider complaint: Weakness, confusion, poor p.o. intake Onset (ago): day(s) 2 This is an 80-year-old male brought in by EMS with at bedside. provides the history as the patient per her report is confused. She states in the last 2 to 3 days he has had markedly increased weakness, fatigue, and confusion. states he was admitted to the hospital several weeks ago and was just discharged from [facility] on January 07 back home after several weeks of rehab. She states he had previously had pneumonia and is at risk of that as he has a history of COPD. She states he also had fallen and had an injury to his right hip where he had already previously had a hip replacement. She states he was doing physical therapy there and had been making progress. She states when he first came home he was ambulatory using his walker, seem to be getting his strength and energy back and had a good appetite. She states over the last 7 to 10 days he seems to be declining, with increasing fatigue and weakness, decreased oral intake, and increased lethargy. She states last night at dinner he was falling asleep while eating. Pt seen during a time of high acuity and national emergency pandemic while wearing PPE. Home Medications Medication Instructions Recorded Confirmed Type aspirin 81 mg tablet,delayed 81 mg PO QAM #0 11/04/16 01/22/21 History release ipratropium 0.5 mg-albuterol 3 mg 3 ml INHALATION Q4H PRN #0 inh 11/04/16 01/22/21 History (2.5 mg base)/3 mL nebulization soln ferrous sulfate 325 mg (65 mg 325 mg PO QAM #0 03/21/17 01/22/21 History iron) tablet vitamin B complex 1 tab PO QAM 10/18/18 01/22/21 History travoprost 0.004 % eye drops 1 drp OPB HS 09/20/19 01/22/21 History simvastatin 10 mg tablet 10 mg PO HS 11/26/19 01/22/21 History furosemide 40 mg tablet 40 mg PO BID tab 01/13/20 01/22/21 History allopurinol 300 mg tablet 300 mg PO QAM #30 tab 06/30/20 01/22/21 Rx fluticasone propionate 50 2 spray INTRANASAL QAM #18.2 ml 06/30/20 01/22/21 Rx mcg/actuation nasal spray,suspension (Flonase Allergy Relief) ascorbic acid (vitamin C) 1,000 mg 1 g PO QAM 08/21/20 01/22/21 History tablet (Vitamin C) metoprolol tartrate 25 mg tablet 12.5 - 25 mg PO DIRECTED 08/21/20 01/22/21 History zinc 50 mg tablet 50 mg PO QAM 08/21/20 01/22/21 History pantoprazole 40 mg tablet,delayed 40 mg PO DAILYBB 08/28/20 01/22/21 History release (Protonix) spironolactone 25 mg tablet 12.5 - 25 mg PO BID 08/28/20 01/22/21 History acetaminophen 325 mg tablet 650 mg PO Q4 PRN MDD 3g 09/28/20 01/22/21 History (Tylenol) escitalopram oxalate 5 mg tablet 10 mg PO QDD 09/28/20 01/22/21 History (Lexapro) apixaban 2.5 mg tablet (Eliquis) 2.5 mg PO BID #60 tab 10/02/20 01/22/21 Rx docusate sodium 100 mg capsule 100 mg PO BID #20 cap 10/02/20 01/22/21 Rx nitroglycerin 0.4 mg sublingual 0.4 mg SUBLINGUAL UD PRN 10/12/20 01/22/21 History tablet (Nitrostat) polyethylene glycol 3350 17 gram 17 g PO DAILY 10/12/20 01/22/21 History oral powder packet (Miralax) fluticasone 250 mcg-salmeterol 50 1 inh INHALATION BID 12/28/20 01/22/21 History mcg/dose blistr powdr for inhalation (Wixela Inhub) mupirocin 2 % topical ointment 1 applic TOP BID #30 gm 01/11/21 01/22/21 Rx cholecalciferol (vitamin D3) 25 25 mcg PO DAILY 01/22/21 01/22/21 History mcg (1,000 unit) tablet (Vitamin D3) guaifenesin 600 mg tablet, 600 mg PO BID 01/22/21 01/22/21 History extended release 12 hr (Mucus Relief ER) omega [id number]-ykd-fish oil 1,200 mg 1,200 cap PO DAILY 01/22/21 01/22/21 History (144 mg-216 mg) capsule (Fish Oil) potassium chloride 20 mEq 20 meq PO TID 01/22/21 01/22/21 History tablet,extended release(part/cryst) vitamin E 600 unit capsule 600 unit PO DAILY 01/22/21 01/22/21 History Allergies Allergy/AdvReac Type Severity Reaction Status Date / Time No Known Drug Allergies Allergy Unknown Unknown Verified 01/22/21 10:21 Past Med/Surg History Medical History Acquired deviated nasal septum Acute exacerbation of chronic obstructive pulmonary disease Clinton's palsy CAD (coronary artery disease) Chronic acquired lymphedema Chronic diastolic (congestive) heart failure Chronic hypoxemic respiratory failure Chronic renal insufficiency CKD (chronic kidney disease), stage III Complex sleep apnea syndrome COPD (chronic obstructive pulmonary disease) Cor pulmonale resolved; echo 2019 with normal RV function Coronary artery disease Depression DM II (diabetes mellitus, type II), controlled Foot drop, right GERD (gastroesophageal reflux disease) Gout History of heart attack Hx of fracture of pelvis Hypercalcemia Hyperlipidemia Hypertension Hypoxia Monoclonal gammopathy of unknown significance Neuropathy SANDOR (obstructive sleep apnea) nasal CPAP 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 RIGHT. Nonoperative Rx. 09/2020. Pneumonia Pneumonia Stage 3b chronic kidney disease Vitamin D deficiency Surgical History History of cataract surgery History of coronary artery stent placement (1999) PCI L circumflex History of coronary artery stent placement (2000) PCI of LAD History of dental surgery History of right hip replacement (2016) History of tonsillectomy Hx of CABG (2011) triple vessel, 2012 S/P AV gerald ablation (04/12/17) S/P ORIF (open reduction internal fixation) fracture (2018) R femur Status cardiac pacemaker (04/12/17) biventricular pacemaker Family History Brother Coronary heart disease Brother Colorectal cancer Mother Myocardial infarction Father Myocardial infarction Social History Smoking Status: Former smoker Tobacco Type: Cigarettes Years Smoked: 30; Second Hand Exposure: No; Hx Alcohol Use: No Hx Substance Use: No Preferred Language: Citizen Of [place] Communication Ability: Effective Automobile Brakes Bonder Required: No Beliefs That Will Affect Care: None marital status: marital status details: 2 daughters Current Living Situation: Spouse Current Living Situation Comment: Lives with at [facility]; currently in SNF for rehab current occupational status: retired 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 Feels Safe at Home: Yes Assistive Devices: Glasses Review of Systems A total of 10 systems reviewed and were otherwise negative All systems reviewed & are unremarkable except as noted in HPI & below Physical Exam Vital Signs Vital Signs - 24 hr 01/22/21 16:04 01/22/21 16:05 01/22/21 16:12 Temperature 36.6 C Temperature Source Oral Pulse Rate 70 70 Pulse Rate from SpO2 Sensor Respiratory Rate 16 20 Respiratory Effort / Characteristics Non-Labored Respiratory Depth Normal Blood Pressure 136/78 Blood Pressure Mean 97 Blood Pressure Position Lying Pulse Oximetry 96 Oxygen Delivery Method Room Air Room Air Sepsis Recent Fever Within 48 Hours No Sepsis New/Unexplained Change in Mental Status No Sepsis Action Taken by Nursing No Action Required Pulse Oximetry Post Tiitration 96 01/22/21 16:20 01/22/21 16:30 01/22/21 16:40 Temperature Temperature Source Pulse Rate 70 70 70 Pulse Rate from SpO2 Sensor 71 Respiratory Rate 20 22 21 Respiratory Effort / Characteristics Respiratory Depth Blood Pressure Blood Pressure Mean Blood Pressure Position Pulse Oximetry 92 Oxygen Delivery Method Sepsis Recent Fever Within 48 Hours Sepsis New/Unexplained Change in Mental Status Sepsis Action Taken by Nursing Pulse Oximetry Post Tiitration 01/22/21 16:50 01/22/21 17:00 01/22/21 17:10 Temperature Temperature Source Pulse Rate 70 70 73 Pulse Rate from SpO2 Sensor Respiratory Rate 19 22 22 Respiratory Effort / Characteristics Respiratory Depth Blood Pressure 138/70 Blood Pressure Mean 92 Blood Pressure Position Pulse Oximetry Oxygen Delivery Method Sepsis Recent Fever Within 48 Hours Sepsis New/Unexplained Change in Mental Status Sepsis Action Taken by Nursing Pulse Oximetry Post Tiitration 01/22/21 17:20 01/22/21 17:30 01/22/21 17:40 Temperature Temperature Source Pulse Rate 70 70 70 Pulse Rate from SpO2 Sensor Respiratory Rate 21 29 H 24 Respiratory Effort / Characteristics Respiratory Depth Blood Pressure Blood Pressure Mean Blood Pressure Position Pulse Oximetry Oxygen Delivery Method Sepsis Recent Fever Within 48 Hours Sepsis New/Unexplained Change in Mental Status Sepsis Action Taken by Nursing Pulse Oximetry Post Tiitration 01/22/21 17:50 01/22/21 18:00 01/22/21 18:10 Temperature Temperature Source Pulse Rate 71 70 70 Pulse Rate from SpO2 Sensor Respiratory Rate 22 19 21 Respiratory Effort / Characteristics Respiratory Depth Blood Pressure Blood Pressure Mean Blood Pressure Position Pulse Oximetry Oxygen Delivery Method Sepsis Recent Fever Within 48 Hours Sepsis New/Unexplained Change in Mental Status Sepsis Action Taken by Nursing Pulse Oximetry Post Tiitration 01/22/21 18:20 01/22/21 18:48 01/22/21 18:50 Temperature Temperature Source Pulse Rate 70 71 70 Pulse Rate from SpO2 Sensor 71 Respiratory Rate 21 18 19 Respiratory Effort / Characteristics Respiratory Depth Blood Pressure Blood Pressure Mean Blood Pressure Position Pulse Oximetry 94 Oxygen Delivery Method Sepsis Recent Fever Within 48 Hours Sepsis New/Unexplained Change in Mental Status Sepsis Action Taken by Nursing Pulse Oximetry Post Tiitration 01/22/21 19:00 01/22/21 19:10 01/22/21 19:20 Temperature Temperature Source Pulse Rate 71 70 70 Pulse Rate from SpO2 Sensor 70 Respiratory Rate 17 19 19 Respiratory Effort / Characteristics Respiratory Depth Blood Pressure 138/60 Blood Pressure Mean 86 Blood Pressure Position Pulse Oximetry 96 Oxygen Delivery Method Sepsis Recent Fever Within 48 Hours Sepsis New/Unexplained Change in Mental Status Sepsis Action Taken by Nursing Pulse Oximetry Post Tiitration 01/22/21 19:30 01/22/21 19:40 01/22/21 19:50 Temperature Temperature Source Pulse Rate 70 70 70 Pulse Rate from SpO2 Sensor 68 70 Respiratory Rate 20 20 20 Respiratory Effort / Characteristics Respiratory Depth Blood Pressure Blood Pressure Mean Blood Pressure Position Pulse Oximetry 89 L 93 Oxygen Delivery Method Sepsis Recent Fever Within 48 Hours Sepsis New/Unexplained Change in Mental Status Sepsis Action Taken by Nursing Pulse Oximetry Post Tiitration 01/22/21 20:00 01/22/21 20:10 01/22/21 20:20 Temperature Temperature Source Pulse Rate 70 70 71 Pulse Rate from SpO2 Sensor 70 69 Respiratory Rate 24 21 21 Respiratory Effort / Characteristics Respiratory Depth Blood Pressure Blood Pressure Mean Blood Pressure Position Pulse Oximetry 95 95 Oxygen Delivery Method Sepsis Recent Fever Within 48 Hours Sepsis New/Unexplained Change in Mental Status Sepsis Action Taken by Nursing Pulse Oximetry Post Tiitration 01/22/21 20:30 Temperature Temperature Source Pulse Rate 70 Pulse Rate from SpO2 Sensor Respiratory Rate 22 Respiratory Effort / Characteristics Respiratory Depth Blood Pressure Blood Pressure Mean Blood Pressure Position Pulse Oximetry Oxygen Delivery Method Sepsis Recent Fever Within 48 Hours Sepsis New/Unexplained Change in Mental Status Sepsis Action Taken by Nursing Pulse Oximetry Post Tiitration GENERAL: Somnolent but arousable, well appearing, well nourished, no distress, non-toxic, NINILCHIK EYE EXAM: normal conjunctiva, PERRL and EOM's grossly intact OROPHARYNX: no exudate, no erythema, lips, buccal mucosa, and tongue normal and mucous membranes are moist NECK: supple, no nuchal rigidity, no adenopathy, non-tender LUNGS: Clear to auscultation. Normal chest wall mechanics, no w/r/r HEART: no murmurs, S1 normal and S2 normal ABDOMEN: abdomen soft, non-tender, normo-active bowel sounds, no masses, no rebound or guarding. RECTAL/BUTTOCK: Skin breakdown early sacral decubitus changes noted over bilateral buttocks and inferior aspect of sacrum, dark brown stool noted at the anus, this was guaiac tested at bedside and was heme negative. BACK: Back is symmetrical on inspection and there is no deformity, no midline tenderness, no CVA tenderness. SKIN: no rashes and no bruising UPPER EXTREMITIES: upper extremities are grossly normal. FROM, nml pulses b/l. LOWER EXTREMITIES: 1-2+ right pitting edema, no edema noted on the left lower extremity. Decreased range of motion on the right, brace noted on the right lower extremity due to chronic history of foot drop, nml pulses b/l. NEURO EXAM: Pleasantly confused, cranial nerves II-XII grossly intact, normal speech, no gross weakness of arms, no gross weakness of legs.Gross sensation intact. Course Administered Medications Discontinued Medications Albuterol (Albut/Ipratrop 3mg/0.5mg Neb 3 Ml Vial) 3 ml NEB NOW STA; Protocol Stop: 01/22/21 16:41 Last Admin: 01/22/21 17:36 Dose: 3 ml Documented by: [id number] Sodium Chloride (Nss 1000ml) 1,000 mls @ 125 mls/hr IV .Q8H JAQUELINE Stop: 02/21/21 16:44 Last Admin: 01/22/21 17:36 Dose: 125 mls/hr Documented by: [id number] Magnesium Sulfate/Dextrose (Magnesium Sulfate / D5w) 1 gm in 100 mls @ 100 mls/hr IV NOW STA Stop: 01/22/21 18:39 Last Infusion: 01/22/21 23:14 Dose: 0 mls/hr Documented by: [id number] Admin: 01/22/21 18:23 Dose: 100 mls/hr Documented by: [id number] Ioversol (Optiray 320 100ml) 95 ml IV ONCE ONE Stop: 01/22/21 18:39 Last Admin: 01/22/21 18:42 Dose: 95 ml Documented by: [id number] Medical Decision Making Differential Diagnosis Differential Diagnosis includes but is not limited to dehydration, stroke, anemia, hypoglycemia, hyponatremia, hypernatremia, urinary tract infection, pneumonia, bronchitis, sepsis, gastroenteritis, additional abdominal pathology, metabolic abnormalities and infections. Medical Records Attestation: I reviewed the patient's medical records. Home Medications Current Medication List: was personally reviewed by me Laboratory Data Attestation: I reviewed the patient's lab results. Result diagrams: 01/22/21 17:00 01/22/21 17:00 Lab Results 01/22/21 01/22/21 01/22/21 Range/Units 17:00 17:00 17:00 WBC 7.42 (4.8-10.8) K/uL RBC 3.29 L (4.7-6.1) M/uL Hgb 9.8 L (14.0-18.0) g/dL Hct 30.6 L (42-52) % MCV 93.0 (80-100) fL MCH 29.8 (25-34) pg MCHC 32.0 (32-36) g/dL RDW Std Deviation 56.1 H (36.4-46.3) fL RDW Coeff of Inez 16.5 H (11.5-14.5) % Plt Count 284 (130-400) K/uL MPV 11.3 H (7.4-10.4) fL Immature Gran % (Auto) 0.0 % Neut % (Auto) 75.0 % Lymph % (Auto) 15.8 % [place] % (Auto) 7.8 % Eos % (Auto) 1.3 % Baso % (Auto) 0.1 % Neut # (Auto) 5.56 (1.4-6.5) K/uL Lymph # (Auto) 1.17 L (1.2-3.4) K/uL [place] # (Auto) 0.58 (0.11-0.59) K/uL Eos # (Auto) 0.10 (0-0.5) K/uL Baso # (Auto) 0.01 (0-0.2) K/uL Immature Gran # (Auto) 0.00 (0.00-0.02) K/uL ABG pH 7.46 H (7.35-7.45) ABG pCO2 42 (35-46) mmHg ABG pO2 79 L (80-95) mmHg ABG HCO3 29 H (19-24) mmol/L ABG O2 Saturation 95.5 H (90-95) % ABG Base Excess 4.9 H (-9-1.8) mEq/L Rajesh Test Pos (Pos) Barometric Pressure 736.6 mm/Hg Oxygen Given ROOM AIR Sodium 132 L (136-145) mmol/L Potassium 3.6 (3.5-5.1) mmol/L Chloride 95 L (98-107) mmol/L Carbon Dioxide 28 (21-32) mmol/L Anion Gap 9.0 (3-11) BUN 37 H (7-18) mg/dl Creatinine 1.68 H (0.6-1.4) mg/dl Est Cr Clr Drug Dosing 37.9 ml/min Est GFR ( Amer) 43.2 ml/min Est GFR (Non-Af Amer) 37.3 ml/min BUN/Creatinine Ratio 21.9 H (10-20) Glucose 150 H (70-99) mg/dl Calcium 11.5 H (8.5-10.1) mg/dl Magnesium 1.7 L (1.8-2.4) mg/dl Total Bilirubin 0.3 (0.2-1) mg/dl AST 13 L (15-37) U/L ALT 15 (12-78) Alkaline Phosphatase 75 (45-117) U/L Troponin I < 0.015 (0-0.045) ng/ml NT-Pro-B Natriuret Pep 4085 H (0-1800) pg/ml Total Protein 9.7 H (6.4-8.2) gm/dl Albumin 2.3 L (3.4-5.0) gm/dl Globulin 7.4 H (2.5-4.0) gm/dl Albumin/Globulin Ratio 0.3 L (0.9-2) Lipase 249 (73-393) U/L TSH 4.180 (0.300-4.500) uIu/ml SARS-CoV-2, RNA, NAAT (NEGATIVE) 01/22/21 Range/Units 17:42 WBC (4.8-10.8) K/uL RBC (4.7-6.1) M/uL Hgb (14.0-18.0) g/dL Hct (42-52) % MCV (80-100) fL MCH (25-34) pg MCHC (32-36) g/dL RDW Std Deviation (36.4-46.3) fL RDW Coeff of Inez (11.5-14.5) % Plt Count (130-400) K/uL MPV (7.4-10.4) fL Immature Gran % (Auto) % Neut % (Auto) % Lymph % (Auto) % [place] % (Auto) % Eos % (Auto) % Baso % (Auto) % Neut # (Auto) (1.4-6.5) K/uL Lymph # (Auto) (1.2-3.4) K/uL [place] # (Auto) (0.11-0.59) K/uL Eos # (Auto) (0-0.5) K/uL Baso # (Auto) (0-0.2) K/uL Immature Gran # (Auto) (0.00-0.02) K/uL ABG pH (7.35-7.45) ABG pCO2 (35-46) mmHg ABG pO2 (80-95) mmHg ABG HCO3 (19-24) mmol/L ABG O2 Saturation (90-95) % ABG Base Excess (-9-1.8) mEq/L Rajesh Test (Pos) Barometric Pressure mm/Hg Oxygen Given Sodium (136-145) mmol/L Potassium (3.5-5.1) mmol/L Chloride (98-107) mmol/L Carbon Dioxide (21-32) mmol/L Anion Gap (3-11) BUN (7-18) mg/dl Creatinine (0.6-1.4) mg/dl Est Cr Clr Drug Dosing ml/min Est GFR ( Amer) ml/min Est GFR (Non-Af Amer) ml/min BUN/Creatinine Ratio (10-20) Glucose (70-99) mg/dl Calcium (8.5-10.1) mg/dl Magnesium (1.8-2.4) mg/dl Total Bilirubin (0.2-1) mg/dl AST (15-37) U/L ALT (12-78) Alkaline Phosphatase (45-117) U/L Troponin I (0-0.045) ng/ml NT-Pro-B Natriuret Pep (0-1800) pg/ml Total Protein (6.4-8.2) gm/dl Albumin (3.4-5.0) gm/dl Globulin (2.5-4.0) gm/dl Albumin/Globulin Ratio (0.9-2) Lipase (73-393) U/L TSH (0.300-4.500) uIu/ml SARS-CoV-2, RNA, NAAT NEGATIVE (NEGATIVE) Imaging Data Radiologist's Impression: Abdomen/Pelvis CT 01/22/21 16:[address] WITH IV CONTRAST CT DOSE: 1493.39 mGy.cm HISTORY: Acute right-sided flank pain with weakness. right flank pain, weakness TECHNIQUE: Multiaxial CT images of the abdomen and pelvis were performed following the IV administration of 95 cc of Optiray, A dose lowering technique was utilized adhering to the principles of ALARA. COMPARISON STUDY: Chest radiograph of same day, CT abdomen and pelvis 09/28/2020 FINDINGS: Cardiomegaly. Prior median sternotomy with partially imaged pacer leads. [place] coronary artery calcifications. Respiratory motion artifact limits evaluation of the lung bases. Right greater left bibasilar patchy airspace opacities. No pneumatosis or pneumoperitoneum. 2.4 cm indeterminate hypodense lesion of the inferior spleen is similar to prior and likely benign. U nremarkable pancreas and adrenal glands. Cholelithiasis. There is partial distention of the gallbladder with mild wall thickening. Marginal nodularity of the liver redemonstrated suggestive of cirrhosis. No suspicious hepatic mass lesion identified. Ill-defined low-attenuation of the kit hepatis also adjacent fascial ligament may represent areas of focal fatty infiltration. Patent portal vein. 5 mm nonobstructing calculus of the right kidney. No ureteral calculi or hy dronephrosis. Symmetric enhancement of the kidneys. Mild nonspecific urinary bladder wall thickening. Prostamegaly. Atherosclerosis of the aorta without aneurysm. No adenopathy. No bowel obstruction or bowel wall thickening. Colonic diverticulosis. Normal appendix. No ascites or mesenteric inflammation. Diastases recti with tiny fat filled periumbilical hernia. Right hip total joint arthroplasty with ORIF changes of the right hemipelvis. Periprosthetic lucency along the anterior aspect of the femoral stem hardware is noted on image 4:30 of series 3 which is progressively worsened from prior. There is cortical thickening within the distribution of the previously described periprosthetic fracture. Chronic fracture of the right inferior pubic ramus. Healed chronic left-sided rib fractures. No acute fracture is identified. Moderate left hip posterior arthritis. Lumbar levoscoliosis. IMPRESSION: 1. Bibasilar patchy airspace opacities are suggestive of multifocal viral pneumonia. 2. No bowel obstruction or bowel wall thickening. Normal appendix. 3. Cholelithiasis. 4. Cirrhotic liver. 5. Right hip total joint arthroplasty. Cortical thickening of the proximal right femur is new from prior compatible with healed versus healing periprosthetic fracture. There is progressive lucency along the anterior aspect of the femoral stem which is suspicious for hardware loosening. ACT 112: Negative or not required by law. The above report was generated using voice recognition software. It may contain grammatical, syntax or spelling errors. Electronically signed by: Esau Allen M.D. 01/22/2021 7:21 PM Chest X-Ray 01/22/21 16:36 XR chest 1V portable HISTORY: 80 years-old Male weakness acute weakness COMPARISON: Chest radiograph 01/22/2021 TECHNIQUE: Portable AP view of the chest FINDINGS: Cardiac silhouette is enlarged. Prior median sternotomy with findings suggestive of CABG. Left subclavian pacer. No pneumothorax. Small layering pleural effusions with persistent bibasilar densities. Pulmonary vascular congestion. Degenerative changes of the shoulders and spine. IMPRESSION: 1. Cardiomegaly with pulmonary vascular congestion. 2. Unchanged small pleural effusions with bibasilar opacities suggestive of atelectasis versus pneumonitis. ACT 112: Negative or not required by law. The above report was generated using voice recognition software. It may contain grammatical, syntax or spelling errors. Electronically signed by: Esau Allen M.D. 01/22/2021 4:[address] 01/22/21 16:36 CT head/brain wo con CLINICAL HISTORY: 80 years-old Male with ams. Acutely altered mental status TECHNIQUE: Multiple axial CT images of the head were obtained without contrast. A dose lowering technique was utilized adhering to the principles of ALARA. CT DOSE: 1074.96 mGy.cm COMPARISON: Head CT 09/28/2020 FINDINGS: Motion degraded exam. The study was then repeated which is also motion degraded. No acute intracranial hemorrhage, midline shift, intracranial mass, hydrocephalus, territorial ischemia or abnormal extra-axial collection. Age- related involutional changes with chronic microvascular ischemic disease. Cerebral vascular calcifications. The calvarium is intact. Prior bilateral lens repair. The paranasal sinuses, mastoid air cells, and middle ear cavities are clear. IMPRESSION: Motion degraded exam. No acute intracranial abnormality. ACT 112: Negative or not required by law. The above report was generated using voice recognition software. It may contain grammatical, syntax or spelling errors. Electronically signed by: Esau Allen M.D. 01/22/2021 7:03 PM ECG Data Attestation: I personally reviewed and interpreted this ECG as follows: Indication: + weakness Rate (beats per minute): 69 Rhythm: + other ECG Intervals/blocks: + IVCD and + Prolonged QT ECG [place]: + Left axis deviation ECG ST segments: + Nonspecific ST abnormalities Additional Comments: Paced MDM Narrative Patient presents via EMS with due to worsening weakness, fatigue, and altered mental status over the last 2 to 3 days with accompanying poor p.o. intake and inability to ambulate. Patient with recent admission several weeks ago, rehab at [facility] and just discharged home on January 08 per the . She states he has been declining over the last week however the last 2 to 3 days it has become significantly worse and she is unable to care for him at home. Patient was afebrile and hemodynamically stable here although was unable to provide any additional history. Patient did recognize his at bedside. Labs drawn and sent and patient sent for CT imaging of the head as well as the abdomen and pelvis after 's concern for possible GI bleed in addition. Patient stools guaiaced bedside and was heme negative. Patient does have a chronic history of anemia although was slightly lower today compared to prior levels. Patient was given a DuoNeb treatment given his underlying COPD is use her scheduled at home. Check of an ABG did not reveal any hypercapnia to explain his symptoms. Patient appears mildly clinically dehydrated although this does have lower extremity edema. He otherwise does not appear to have ov ert CHF. CT of the abdomen pelvis is read by radiology suggestive of likely viral pneumonia. Nasal swab was negative for Covid, influenza, and RSV. Patient likely at increased risk for pneumonia given underlying COPD history. I did discuss all results with patient's at bedside. Due to worsening status and accompanying confusion, case was discussed with the hospitalist for additional inpatient evaluation and management. An order was placed for continuous cardiac monitoring. The monitor shows a rate of _70__ with _paced__ rhythm. Impression & Plan Acute alteration in mental status, Generalized weakness, YEIMI (acute kidney injury), Acute dehydration, Pneumonia, Elevated brain natriuretic peptide (BNP) level Discharge Plan Visit Data Chief Complaint: Weakness Stated Complaint: Weakness, Unable to Ambulate ED Provider: Elina Blancas Discharge Problem: Acute alteration in mental status, Generalized weakness, YEIMI (acute kidney injury), Acute dehydration, Pneumonia, Elevated brain natriuretic peptide (BNP) level Discharge Instructions Interventions: ED Discharge Assessment Last Done: 01/22/21 22:54 Discharge Problem: Pneumonia Qualifiers: Pneumonia type: due to unspecified organism Laterality: bilateral Lung location: unspecified part of lung Qualified Code(s): J18.9 - Pneumonia, unspecified organism
[2021-01-22] MEDS ORDERED: SODIUM CHLORIDE 0.9% 1000ML 1,000 ML IV SCH (16:45)
--- NOTE | 2021-01-22 16:54 | XRay Report ---
XR chest 1V portable HISTORY: 80 years-old Male weakness acute weakness COMPARISON: Chest radiograph 01/22/2021 TECHNIQUE: Portable AP view of the chest FINDINGS: Cardiac silhouette is enlarged. Prior median sternotomy with findings suggestive of CABG. Left subcla vian pacer. No pneumothorax. Small layering pleural effusions with persistent bibasilar densities. Pu lmonary vascular congestion. Degenerative changes of the shoulders and spine. IMPRESSION: 1. Cardiomegaly with pulmonary vascular congestion. 2. Unchanged small pleural effusions with bibasilar opacities suggestive of atelectasis versus pneumo nitis. ACT 112: Negative or not required by law. The above report was generated using voice recognition software. It may contain grammatical, syntax o r spelling errors. Electronically signed by: Esau Allen M.D. 01/22/2021 4:53 PM
[2021-01-22 17:08] LABS: Basophils # (auto) 0.01 K/uL (0-0.2); Basophils % (auto) 0.1 %; Eosinophils % (auto) 1.3 %; Hematocrit (blood only) 30.6 % (42-52); Hemoglobin 9.8 g/dL (14.0-18.0); Lymphocytes # (auto) 1.17 K/uL (1.2-3.4); Lymphocytes % (auto) 15.8 %; Mean Corpuscular Hemoglobin 29.8 pg (25-34); Mean Platelet Volume 11.3 fL (7.4-10.4); Monocytes # (auto) 0.58 K/uL (0.11-0.59); Monocytes % (auto) 7.8 %; Neutrophils # (auto) 5.56 K/uL (1.4-6.5); Platelet Count 284 K/uL (130-400); RDW Coefficient of Variation 16.5 % (11.5-14.5); RDW Standard Deviation 56.1 fL (36.4-46.3); Red Blood Count 3.29 M/uL (4.7-6.1); White Blood Count 7.42 K/uL (4.8-10.8)
[2021-01-22 17:12] LABS: Base Excess ABG 4.9 mEq/L (-9-1.8); HCO3 ABG 29 mmol/L (19-24); Oxygen Saturation ABG 95.5 % (90-95); PCO2 ABG 42 mmHg (35-46); PO2 ABG 79 mmHg (80-95); pH ABG 7.46 (7.35-7.45)
[2021-01-22 17:21] LABS: Allen Test Pos (Pos)
[2021-01-22 17:25] LABS: Alanine Aminotransferase 15 (12-78); Albumin Level 2.3 gm/dl (3.4-5.0); Aspartate Aminotransferase 13 U/L (15-37); BUN Creatinine Ratio 21.9 (10-20); Blood Urea Nitrogen 37 mg/dl (7-18); Calcium 11.5 mg/dl (8.5-10.1); Carbon Dioxide 28 mmol/L (21-32); Chloride 95 mmol/L (98-107); Creatinine Clr Calc Pharmacy 37.9 ml/min; Est GFR (African American) 43.2 ml/min; Est GFR (Non-African American) 37.3 ml/min; Glucose 150 mg/dl (70-99); Lipase 249 U/L (73-393); Magnesium 1.7 mg/dl (1.8-2.4); Potassium 3.6 mmol/L (3.5-5.1); Sodium 132 mmol/L (136-145)
[2021-01-22] MEDS ORDERED: MAGNESIUM SULFATE / D5W 1 GM/100 ML BAG IV STA (17:40)
[2021-01-22 17:50] LABS: Albumin Globulin Ratio 0.3 (0.9-2); Alkaline Phosphatase 75 U/L (45-117); Bilirubin,Total 0.3 mg/dl (0.2-1); Globulin 7.4 gm/dl (2.5-4.0); NT Pro B Type Natriuretic Pept 4085 pg/ml (0-1800); Total Protein 9.7 gm/dl (6.4-8.2); Troponin I < 0.015 ng/ml (0-0.045)
[2021-01-22] MEDS ORDERED: OPTIRAY 320 100ml IV ONE (18:38)
--- NOTE | 2021-01-22 19:04 | CT Scan Report ---
CT head/brain wo con CLINICAL HISTORY: 80 years-old Male with ams. Acutely altered mental status TECHNIQUE: Multiple axial CT images of the head were obtained without contrast. A dose lowering tech nique was utilized adhering to the principles of ALARA. CT DOSE: 1074.96 mGy.cm COMPARISON: Head CT 09/28/2020 FINDINGS: Motion degraded exam. The study was then repeated which is also motion degraded. No acute intracrania l hemorrhage, midline shift, intracranial mass, hydrocephalus, territorial ischemia or abnormal extra -axial collection. Age-related involutional changes with chronic microvascular ischemic disease. Cere bral vascular calcifications. The calvarium is intact. Prior bilateral lens repair. The paranasal sinuses, mastoid air cells, and m iddle ear cavities are clear. IMPRESSION: Motion degraded exam. No acute intracranial abnormality. ACT 112: Negative or not required by law. The above report was generated using voice recognition software. It may contain grammatical, syntax o r spelling errors. Electronically signed by: Esau Allen M.D. 01/22/2021 7:03 PM
--- NOTE | 2021-01-22 19:22 | CT Scan Report ---
ABDOMEN AND PELVIS CT WITH IV CONTRAST CT DOSE: 1493.39 mGy.cm HISTORY: Acute right-sided flank pain with weakness. right flank pain, weakness TECHNIQUE: Multiaxial CT images of the abdomen and pelvis were performed following the IV administrat ion of 95 cc of Optiray, A dose lowering technique was utilized adhering to the principles of ALARA. COMPARISON STUDY: Chest radiograph of same day, CT abdomen and pelvis 09/28/2020 FINDINGS: Cardiomegaly. Prior median sternotomy with partially imaged pacer leads. Extensive [place] coronary ar jaylon calcifications. Respiratory motion artifact limits evaluation of the lung bases. Right greater l eft bibasilar patchy airspace opacities. No pneumatosis or pneumoperitoneum. 2.4 cm indeterminate hyp odense lesion of the inferior spleen is similar to prior and likely benign. Unremarkable pancreas and adrenal glands. Cholelithiasis. There is partial distention of the gallbladder with mild wall thicke tsorm. Marginal nodularity of the liver redemonstrated suggestive of cirrhosis. No suspicious hepatic mass lesion identified. Ill-defined low-attenuation of the kit hepatis also adjacent fascial ligame nt may represent areas of focal fatty infiltration. Patent portal vein. 5 mm nonobstructing calculus of the right kidney. No ureteral calculi or hydronephrosis. Symmetric en hancement of the kidneys. Mild nonspecific urinary bladder wall thickening. Prostamegaly. Atheroscler osis of the aorta without aneurysm. No adenopathy. No bowel obstruction or bowel wall thickening. Col onic diverticulosis. Normal appendix. No ascites or mesenteric inflammation. Diastases recti with tin y fat filled periumbilical hernia. Right hip total joint arthroplasty with ORIF changes of the right hemipelvis. Periprosthetic lucency along the anterior aspect of the femoral stem hardware is noted on image 4:30 of series 3 which is progressively worsened from prior. There is cortical thickening with in the distribution of the previously described periprosthetic fracture. Chronic fracture of the righ t inferior pubic ramus. Healed chronic left-sided rib fractures. No acute fracture is identified. Mod erate left hip posterior arthritis. Lumbar levoscoliosis. IMPRESSION: 1. Bibasilar patchy airspace opacities are suggestive of multifocal viral pneumonia. 2. No bowel obstruction or bowel wall thickening. Normal appendix. 3. Cholelithiasis. 4. Cirrhotic liver. 5. Right hip total joint arthroplasty. Cortical thickening of the proximal right femur is new from pr ior compatible with healed versus healing periprosthetic fracture. There is progressive lucency along the anterior aspect of the femoral stem which is suspicious for hardware loosening. ACT 112: Negative or not required by law. The above report was generated using voice recognition software. It may contain grammatical, syntax o r spelling errors. Electronically signed by: Esau Allen M.D. 01/22/2021 7:21 PM
[2021-01-22 20:34] LABS: Influenza A virus by PCR Negative (Neg); Influenza B virus by PCR Negative (Neg); RSV by PCR Negative (Neg); SARS CoV2 RNA(COVID-19) InHosp NEGATIVE (Negative)
--- NOTE | 2021-01-22 20:39 | History & Physical Report ---
Date of Service January 22, 2021 Assessment & Plan (1) Weakness: Plan: 80yo male with multiple medical comorbidities presenting from home with one week of progressive weakness, fatigue and confusion. Patient appears clinically dry on exam. Labs with mild elevation in BUN and Cr from baseline as well as slightly decreased Na and Cl. Suspect poor intake with some degree of dehydration. No fever or leukocytosis. UA is ordered and pending - has not yet been collected. CXR with bibasilar inflammation - ?pneumonitis vs infection -Admit to medical -IVF and electrolyte repletion -Follow UA and cultures sent from ER -PT/OT evaluations (2) Chronic atrial fibrillation: Plan: Rate controlled. Anticoagulated on Eliquis 2.5mg po BID. Could consider increaseing to 5mg BID pending renal function. Patient follows with [facility]. -Continue Eliquis -Continue Metoprolol at home dosing -Monitor (3) CKD (chronic kidney disease), stage III: Plan: BUN and Cr are slightly above baseline - 37 and 1.68, respectively. Patient does appear clinically dry on exam - dry mucus membranes yet with bilateral LE edema. Suspect intervascular depletion with poor nutrition and thirdspacing? -Avoid nephrotoxic agents -Renal dosing where needed -Monitor BUN, Cr, electrolytes and UOP -Will hold Lasix and Spironolactone for now (4) Hypertension: Plan: Blood pressure mildly elevated at 141/70 -Continue Metoprolol -Will hold Spironolactone and Lasix for now (5) Anemia: Plan: Normochromic, normocytic anemia with Hgb=9.8, Hct=30.6. No active bleed -Follow CBC (6) Depression: Plan: Chronic -Continue Lexapro 10 mg daily (7) GERD (gastroesophageal reflux disease): Plan: Chronic -Continue Protonix (8) CAD (coronary artery disease): Plan: Chronic. Troponin undetectable -Continue Simvastatin -Continue metoprolol -Continue ASA (9) Hyperlipidemia: Plan: Chronic -Continue simvastatin (10) COPD (chronic obstructive pulmonary disease): Plan: Chronic -Continue Fluticsone/Salmeterol -Continue ipratropium/albuterol -Continue Guaifenesin (11) Central sleep apnea: Plan: Chronic -Continue CPAP qHS History of Present Illness Chief Complaint: weakness, confusion Primary Care Provider: VASQUEZ Garcia is an 80yo male with multiple medical comorbidities. Patient was admitted to [facility] from 09/28/20 - 10/02/20 for a right-sided periprosthetic femur fracture which was treated non-operatively. He was discharged to [facility] rehab after than hospitalization. He did poorly at rehab and returned to [facility] on 10/12/20 with report of confusion. Patient was intubated on 10/12/20 for acute hypoxic respiratory failure secondary to PNA and was extubated on 10/13/20. He was treated with 7 days of antibiotics for H. influenza PNA as well as IV --> PO steroids for COPD exacerbation. He was discharged to [facility] rehab on 10/20/20 in stable condition. Patient completed rehab and returned home on 01/07/21. He has been living with his and was doing well initially. Unfortunately over the last week he has been having worsening weakness. reports that over the last 2-3 days patient has been unable to stand or ambulate on his own. Also with worsening fatigue, confusion and poor intake. Patient is unable to provide history due to confusion. He does participate with exam. ER Course: Albuterol, Magnesium, NSS Allergies Allergy/AdvReac Type Severity Reaction Status Date / Time No Known Drug Allergies Allergy Unknown Unknown Verified 01/22/21 10:21 Home Medications Medication Instructions Recorded Confirmed Type aspirin 81 mg tablet,delayed 81 mg PO QAM #0 11/04/16 01/22/21 History release ipratropium 0.5 mg-albuterol 3 mg 3 ml INHALATION Q4H PRN #0 inh 11/04/16 01/22/21 History (2.5 mg base)/3 mL nebulization soln ferrous sulfate 325 mg (65 mg 325 mg PO QAM #0 03/21/17 01/22/21 History iron) tablet vitamin B complex 1 tab PO QAM 10/18/18 01/22/21 History travoprost 0.004 % eye drops 1 drp OPB HS 09/20/19 01/22/21 History simvastatin 10 mg tablet 10 mg PO HS 11/26/19 01/22/21 History furosemide 40 mg tablet 40 mg PO BID tab 01/13/20 01/22/21 History allopurinol 300 mg tablet 300 mg PO QAM #30 tab 06/30/20 01/22/21 Rx fluticasone propionate 50 2 spray INTRANASAL QAM #18.2 ml 06/30/20 01/22/21 Rx mcg/actuation nasal spray,suspension (Flonase Allergy Relief) ascorbic acid (vitamin C) 1,000 mg 1 g PO QAM 08/21/20 01/22/21 History tablet (Vitamin C) metoprolol tartrate 25 mg tablet 12.5 - 25 mg PO DIRECTED 08/21/20 01/22/21 History zinc 50 mg tablet 50 mg PO QAM 08/21/20 01/22/21 History pantoprazole 40 mg tablet,delayed 40 mg PO DAILYBB 08/28/20 01/22/21 History release (Protonix) spironolactone 25 mg tablet 12.5 - 25 mg PO BID 08/28/20 01/22/21 History acetaminophen 325 mg tablet 650 mg PO Q4 PRN MDD 3g 09/28/20 01/22/21 History (Tylenol) escitalopram oxalate 5 mg tablet 10 mg PO QDD 09/28/20 01/22/21 History (Lexapro) apixaban 2.5 mg tablet (Eliquis) 2.5 mg PO BID #60 tab 10/02/20 01/22/21 Rx docusate sodium 100 mg capsule 100 mg PO BID #20 cap 10/02/20 01/22/21 Rx nitroglycerin 0.4 mg sublingual 0.4 mg SUBLINGUAL UD PRN 10/12/20 01/22/21 History tablet (Nitrostat) polyethylene glycol 3350 17 gram 17 g PO DAILY 10/12/20 01/22/21 History oral powder packet (Miralax) fluticasone 250 mcg-salmeterol 50 1 inh INHALATION BID 12/28/20 01/22/21 History mcg/dose blistr powdr for inhalation (Wixela Inhub) mupirocin 2 % topical ointment 1 applic TOP BID #30 gm 01/11/21 01/22/21 Rx cholecalciferol (vitamin D3) 25 25 mcg PO DAILY 01/22/21 01/22/21 History mcg (1,000 unit) tablet (Vitamin D3) guaifenesin 600 mg tablet, 600 mg PO BID 01/22/21 01/22/21 History extended release 12 hr (Mucus Relief ER) omega 5-egm-kef-fish oil 1,200 mg 1,200 cap PO DAILY 01/22/21 01/22/21 History (144 mg-216 mg) capsule (Fish Oil) potassium chloride 20 mEq 20 meq PO TID 01/22/21 01/22/21 History tablet,extended release(part/cryst) vitamin E 600 unit capsule 600 unit PO DAILY 01/22/21 01/22/21 History Past Med/Surg History Medical History Acquired deviated nasal septum Acute exacerbation of chronic obstructive pulmonary disease [place]'s palsy CAD (coronary artery disease) Chronic acquired lymphedema Chronic diastolic (congestive) heart failure Chronic hypoxemic respiratory failure Chronic renal insufficiency CKD (chronic kidney disease), stage III Complex sleep apnea syndrome COPD (chronic obstructive pulmonary disease) Cor pulmonale resolved; echo 2019 with normal RV function Coronary artery disease Depression DM II (diabetes mellitus, type II), controlled Foot drop, right GERD (gastroesophageal reflux disease) Gout History of heart attack Hx of fracture of pelvis Hypercalcemia Hyperlipidemia Hypertension Hypoxia Monoclonal gammopathy of unknown significance Neuropathy SANDOR (obstructive sleep apnea) nasal CPAP 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 RIGHT. Nonoperative Rx. 09/2020. Pneumonia Pneumonia Stage 3b chronic kidney disease Vitamin D deficiency Surgical History History of cataract surgery History of coronary artery stent placement (1999) PCI L circumflex History of coronary artery stent placement (2000) PCI of LAD History of dental surgery History of right hip replacement (2016) History of tonsillectomy Hx of CABG (2011) triple vessel, 2012 S/P AV gerald ablation (04/12/17) S/P ORIF (open reduction internal fixation) fracture (2018) R femur Status cardiac pacemaker (04/12/17) biventricular pacemaker Family History Brother Coronary heart disease Brother Colorectal cancer Mother Myocardial infarction Father Myocardial infarction Social History Smoking Status: Former smoker Tobacco Type: Cigarettes Years Smoked: 30; Second Hand Exposure: No; Hx Alcohol Use: No Hx Substance Use: No Preferred Language: [place] Communication Ability: Effective Sub Master Required: No Beliefs That Will Affect Care: None marital status: marital status details: 2 daughters Current Living Situation: Spouse Current Living Situation Comment: Lives with at [facility]; currently in SNF for rehab current occupational status: retired 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 Feels Safe at Home: Yes Assistive Devices: Glasses Review of Systems Review of Systems: Unobtainable due to cognitive status Physical Exam Physical Exam: General: patient ill in appearance, NAD, somnolent, oriented to person and place, following some commands Skin: warm, dry, sacral skin breakdown as noted by ER team HEENT: NC/AT, PERRL, anicteric sclera, conjunctiva without injection, external ear normal to inspection and nontender, nares patent, DRY mucus membranes, dentition intact, no oropharyngeal lesions, neck supple, trachea midline, no LAD, no thyromegaly, no JVD Heart: +S1/S2, regular, no m/r/g Lungs: equal air entry bilaterally, crackles in bilateral bases Abd: +BS, soft, NT/ND, no masses/organomegaly/ascites Ext: warm, 2+ pulses in UE/LE bilaterally, no clubbing/cyanosis, 3+ pitting edema of bilateral LE Neuro:diffuse generalized weakness with MS 4/5 in UE/LE bilaterally, oriented x 2 Results & Data Results & Data ([facility]) Vital Signs (Past 12 Hours) Vital Signs Temp Pulse Resp BP Pulse Ox 01/22/21 19:10 70 19 138/60 96 01/22/21 19:00 71 17 01/22/21 18:50 70 19 94 01/22/21 18:48 71 18 01/22/21 18:20 70 21 01/22/21 18:10 70 21 01/22/21 18:00 70 19 01/22/21 17:50 71 22 01/22/21 17:40 70 24 01/22/21 17:30 70 29 H 01/22/21 17:20 70 21 01/22/21 17:10 73 22 138/70 01/22/21 17:00 70 22 01/22/21 16:50 70 19 01/22/21 16:40 70 21 92 01/22/21 16:30 70 22 01/22/21 16:20 70 20 01/22/21 16:12 70 20 01/22/21 16:05 36.6 C 70 16 136/78 96 Laboratory Results Laboratory Results WBC 7.42 K/uL (4.8-10.8) 01/22/21 17:00 RBC 3.29 M/uL (4.7-6.1) L 01/22/21 17:00 Hgb 9.8 g/dL (14.0-18.0) L 01/22/21 17:00 Hct 30.6 % (42-52) L 01/22/21 17:00 MCV 93.0 fL (80-100) 01/22/21 17:00 MCH 29.8 pg (25-34) 01/22/21 17:00 MCHC 32.0 g/dL (32-36) 01/22/21 17:00 RDW Std Deviation 56.1 fL (36.4-46.3) H 01/22/21 17:00 RDW Coeff of Inez 16.5 % (11.5-14.5) H 01/22/21 17:00 Plt Count 284 K/uL (130-400) 01/22/21 17:00 MPV 11.3 fL (7.4-10.4) H 01/22/21 17:00 Immature Gran % (Auto) 0.0 % 01/22/21 17:00 Neut % (Auto) 75.0 % 01/22/21 17:00 Lymph % (Auto) 15.8 % 01/22/21 17:00 Boundary % (Auto) 7.8 % 01/22/21 17:00 Eos % (Auto) 1.3 % 01/22/21 17:00 Baso % (Auto) 0.1 % 01/22/21 17:00 Neut # (Auto) 5.56 K/uL (1.4-6.5) 01/22/21 17:00 Lymph # (Auto) 1.17 K/uL (1.2-3.4) L 01/22/21 17:00 Boundary # (Auto) 0.58 K/uL (0.11-0.59) 01/22/21 17:00 Eos # (Auto) 0.10 K/uL (0-0.5) 01/22/21 17:00 Baso # (Auto) 0.01 K/uL (0-0.2) 01/22/21 17:00 Immature Gran # (Auto) 0.00 K/uL (0.00-0.02) 01/22/21 17:00 ABG pH 7.46 (7.35-7.45) H 01/22/21 17:00 ABG pCO2 42 mmHg (35-46) 01/22/21 17:00 ABG pO2 79 mmHg (80-95) L 01/22/21 17:00 ABG HCO3 29 mmol/L (19-24) H 01/22/21 17:00 ABG O2 Saturation 95.5 % (90-95) H 01/22/21 17:00 ABG Base Excess 4.9 mEq/L (-9-1.8) H 01/22/21 17:00 Rajesh Test Pos (Pos) 01/22/21 17:00 Barometric Pressure 736.6 mm/Hg 01/22/21 17:00 Oxygen Given ROOM AIR 01/22/21 17:00 Sodium 132 mmol/L (136-145) L 01/22/21 17:00 Potassium 3.6 mmol/L (3.5-5.1) 01/22/21 17:00 Chloride 95 mmol/L (98-107) L 01/22/21 17:00 Carbon Dioxide 28 mmol/L (21-32) 01/22/21 17:00 Anion Gap 9.0 (3-11) 01/22/21 17:00 BUN 37 mg/dl (7-18) H 01/22/21 17:00 Creatinine 1.68 mg/dl (0.6-1.4) H 01/22/21 17:00 Est Cr Clr Drug Dosing 37.9 ml/min 01/22/21 17:00 Est GFR ( Amer) 43.2 ml/min 01/22/21 17:00 Est GFR (Non-Af Amer) 37.3 ml/min 01/22/21 17:00 BUN/Creatinine Ratio 21.9 (10-20) H 01/22/21 17:00 Glucose 150 mg/dl (70-99) H 01/22/21 17:00 Calcium 11.5 mg/dl (8.5-10.1) H 01/22/21 17:00 Magnesium 1.7 mg/dl (1.8-2.4) L 01/22/21 17:00 Total Bilirubin 0.3 mg/dl (0.2-1) 01/22/21 17:00 AST 13 U/L (15-37) L 01/22/21 17:00 ALT 15 (12-78) 01/22/21 17:00 Alkaline Phosphatase 75 U/L (45-117) 01/22/21 17:00 Troponin I < 0.015 ng/ml (0-0.045) 01/22/21 17:00 NT-Pro-B Natriuret Pep 4085 pg/ml (0-1800) H 01/22/21 17:00 Total Protein 9.7 gm/dl (6.4-8.2) H 01/22/21 17:00 Albumin 2.3 gm/dl (3.4-5.0) L 01/22/21 17:00 Globulin 7.4 gm/dl (2.5-4.0) H 01/22/21 17:00 Albumin/Globulin Ratio 0.3 (0.9-2) L 01/22/21 17:00 Lipase 249 U/L (73-393) 01/22/21 17:00 TSH 4.180 uIu/ml (0.300-4.500) 01/22/21 17:00 SARS-CoV-2 (PCR) NEGATIVE (Negative) 01/22/21 Unknown Influenza Type A (PCR) Negative (Neg) 01/22/21 Unknown Influenza Type B (PCR) Negative (Neg) 01/22/21 Unknown RSV (RT-PCR) Negative (Neg) 01/22/21 Unknown SARS-CoV-2, RNA, NAAT NEGATIVE (NEGATIVE) 01/22/21 17:42 Impressions Abdomen/Pelvis CT 01/22/21 16:[address] WITH IV CONTRAST CT DOSE: 1493.39 mGy.cm HISTORY: Acute right-sided flank pain with weakness. right flank pain, weakness TECHNIQUE: Multiaxial CT images of the abdomen and pelvis were performed following the IV administration of 95 cc of Optiray, A dose lowering technique was utilized adhering to the principles of ALARA. COMPARISON STUDY: Chest radiograph of same day, CT abdomen and pelvis 09/28/2020 FINDINGS: Cardiomegaly. Prior median sternotomy with partially imaged pacer leads. Extensive [place] coronary artery calcifications. Respiratory motion artifact limits evaluation of the lung bases. Right greater left bibasilar patchy airspace opacities. No pneumatosis or pneumoperitoneum. 2.4 cm indeterminate hypodense lesion of the inferior spleen is similar to prior and likely benign. Unremarkable pancreas and adrenal glands. Cholelithiasis. There is partial distention of the gallbladder with mild wall thickening. Marginal nodularity of the liver redemonstrated suggestive of cirrhosis. No suspicious hepatic mass lesion identified. Ill-defined low-attenuation of the kit hepatis also adjacent fascial ligament may represent areas of focal fatty infiltration. Patent portal vein. 5 mm nonobstructing calculus of the right kidney. No ureteral calculi or hydronephrosis. Symmetric enhancement of the kidneys. Mild nonspecific urinary bladder wall thickening. Prostamegaly. Atherosclerosis of the aorta without aneurysm. No adenopathy. No bowel obstruction or bowel wall thickening. Colonic diverticulosis. Normal appendix. No ascites or mesenteric inflammation. Diastases recti with tiny fat filled periumbilical hernia. Right hip total joint arthroplasty with ORIF changes of the right hemipelvis. Periprosthetic lucency along the anterior aspect of the femoral stem hardware is noted on image 4:30 of series 3 which is progressively worsened from prior. There is cortical thickening within the distribution of the previously described periprosthetic fracture. Chronic fracture of the right inferior pubic ramus. Healed chronic left-sided rib fractures. No acute fracture is identified. Moderate left hip posterior arthritis. Lumbar levoscoliosis. IMPRESSION: 1. Bibasilar patchy airspace opacities are suggestive of multifocal viral pneumonia. 2. No bowel obstruction or bowel wall thickening. Normal appendix. 3. Cholelithiasis. 4. Cirrhotic liver. 5. Right hip total joint arthroplasty. Cortical thickening of the proximal right femur is new from prior compatible with healed versus healing periprosthetic fracture. There is progressive lucency along the anterior aspect of the femoral stem which is suspicious for hardware loosening. ACT 112: Negative or not required by law. The above report was generated using voice recognition software. It may contain grammatical, syntax or spelling errors. Electronically signed by: Esau Allen M.D. 01/22/2021 7:21 PM Chest X-Ray 01/22/21 16:36 XR chest 1V portable HISTORY: 80 years-old Male weakness acute weakness COMPARISON: Chest radiograph 01/22/2021 TECHNIQUE: Portable AP view of the chest FINDINGS: Cardiac silhouette is enlarged. Prior median sternotomy with findings suggestive of CABG. Left subclavian pacer. No pneumothorax. Small layering pleural effusions with persistent bibasilar densities. Pulmonary vascular congestion. Degenerative changes of the shoulders and spine. IMPRESSION: 1. Cardiomegaly with pulmonary vascular congestion. 2. Unchanged small pleural effusions with bibasilar opacities suggestive of atelectasis versus pneumonitis. ACT 112: Negative or not required by law. The above report was generated using voice recognition software. It may contain grammatical, syntax or spelling errors. Electronically signed by: Esau Allen M.D. 01/22/2021 4:[address] 01/22/21 16:36 CT head/brain wo con CLINICAL HISTORY: 80 years-old Male with ams. Acutely altered mental status TECHNIQUE: Multiple axial CT images of the head were obtained without contrast. A dose lowering technique was utilized adhering to the principles of ALARA. CT DOSE: 1074.96 mGy.cm COMPARISON: Head CT 09/28/2020 FINDINGS: Motion degraded exam. The study was then repeated which is also motion degraded. No acute intracranial hemorrhage, midline shift, intracranial mass, hydrocephalus, territorial ischemia or abnormal extra-axial collection. Age- related involutional changes with chronic microvascular ischemic disease. Cere bral vascular calcifications. The calvarium is intact. Prior bilateral lens repair. The paranasal sinuses, mastoid air cells, and middle ear cavities are clear. IMPRESSION: Motion degraded exam. No acute intracranial abnormality. ACT 112: Negative or not required by law. The above report was generated using voice recognition software. It may contain grammatical, syntax or spelling errors. Electronically signed by: Esau Allen M.D. 01/22/2021 7:03 PM Code Status & VTE Plan VTE Prophylaxis Plan VTE Prophylaxis will be ordered: No PG Care Time/CCT Total # of Minutes Spent Total Time Spent with Patient: Total time spent is greater than 50% in coordination of care (as documented) at patient's floor/unit and/or counseling patient: Coding Level of Care Code 15905 Initial Inpt Care Lvl 3 Diagnoses Anemia D64.9 Chronic atrial fibrillation I48.20 Depression F32.9 Hypertension I10 Hypertension type: essential hypertension GERD (gastroesophageal reflux disease) K21.9 CAD (coronary artery disease) I25.10 CKD (chronic kidney disease), stage III N18.30 Hyperlipidemia E78.2 Hyperlipidemia type: mixed hyperlipidemia COPD (chronic obstructive pulmonary disease) J44.9 COPD type: unspecified COPD Central sleep apnea G47.31 Weakness R53.1 (1) Hyperlipidemia Hyperlipidemia type: mixed hyperlipidemia Qualified Code(s): E78.2 - Mixed hyperlipidemia (2) COPD (chronic obstructive pulmonary disease) COPD type: unspecified COPD Qualified Code(s): J44.9 - Chronic obstructive pulmonary disease, unspecified (3) Hypertension Hypertension type: essential hypertension Qualified Code(s): I10 - Essential (primary) hypertension
[2021-01-22] MEDS ORDERED: ONDANSETRON INJ 2 MG/ML 2 ML VIAL IV PRN (22:52)
[2021-01-22] MEDS ORDERED: ALBUT/IPRATROP 3MG/0.5MG NEB 3 ML VIAL INH PRN (22:52)
[2021-01-22] MEDS ORDERED: MAGNESIUM SULFATE / D5W 1 GM/100 ML BAG IV ONE (23:15)
[2021-01-23] MEDS: APIXABAN 2.5 MG TAB PO SCH ×3 (00:04→20:44)
[2021-01-23] MEDS: guaiFENesin 600 MG TABCR PO SCH ×3 (00:04→20:44)
[2021-01-23] MEDS: DOCUSATE SODIUM 100 MG CAP PO SCH ×3 (00:04→20:44)
[2021-01-23] MEDS: METOPROLOL TARTRATE 25 MG TAB PO SCH ×2 (00:04→20:43)
[2021-01-23] MEDS: SIMVASTATIN 10 MG TAB PO SCH ×2 (00:04→20:43)
[2021-01-23] MEDS: TRAVOPROST Z 0.004% OPH SOLN 2.5 ML BTL OPB SCH ×2 (00:04→20:45)
[2021-01-23] MEDS: SODIUM CHLORIDE 0.9% 1000ML 1,000 ML IV SCH ×2 (00:05→13:00)
[2021-01-23 00:31] LABS: Appearance Urine Clear (Clear); Bacteria Urine Automated Negative (Negative); Bilirubin Urine Negative (Negative); Blood Urine Negative (Negative); Color Urine Yellow; Epithelial Cell Urine Auto >30 /lpf (0-5); Glucose Urine UA Negative (Negative); Ketones Urine Negative (Negative); Leukocyte Esterase Urine Negative (Negative); Nitrite Urine Negative (Negative); Protein Urine Trace (Negative); RBC Urine Automated 0-4 /hpf (0-4); Specific Gravity Urine 1.028 (1.000-1.030); Urobilinogen Urine Negative (Negative); pH Urine 5.5 (4.5-7.5)
[2021-01-23] MEDS: PANTOprazole 40 MG TAB PO SCH (06:18)
[2021-01-23 08:17] LABS: Basophils # (auto) 0.01 K/uL (0-0.2); Basophils % (auto) 0.2 %; Eosinophils # (auto) 0.11 K/uL (0-0.5); Eosinophils % (auto) 1.9 %; Hematocrit (blood only) 33.4 % (42-52); Hemoglobin 10.4 g/dL (14.0-18.0); Immature Granulocytes # (auto) 0.01 K/uL (0.00-0.02); Immature Granulocytes % (auto) 0.2 %; Lymphocytes # (auto) 1.05 K/uL (1.2-3.4); Lymphocytes % (auto) 18.4 %; Mean Corpuscular Hemoglobin 29.1 pg (25-34); Mean Corpuscular Hgb Conc 31.1 g/dL (32-36); Mean Corpuscular Volume 93.6 fL (80-100); Mean Platelet Volume 11.2 fL (7.4-10.4); Monocytes # (auto) 0.53 K/uL (0.11-0.59); Monocytes % (auto) 9.3 %; Platelet Count 222 K/uL (130-400); RDW Coefficient of Variation 16.5 % (11.5-14.5); RDW Standard Deviation 56.4 fL (36.4-46.3); Red Blood Count 3.57 M/uL (4.7-6.1); White Blood Count 5.71 K/uL (4.8-10.8)
[2021-01-23 08:19] LABS: BUN Creatinine Ratio 22.4 (10-20); Calcium 11.9 mg/dl (8.5-10.1); Creatinine Clr Calc Pharmacy 50.2 ml/min; Est GFR (African American) 60.6 ml/min; Est GFR (Non-African American) 52.3 ml/min; Potassium 3.5 mmol/L (3.5-5.1)
[2021-01-23] MEDS: FLUTICASONE PROPIONATE NA SPR 16 GM BTL SCH (09:15)
[2021-01-23] MEDS: FLUTICASONE/VILANTEROL 100/25MCG 14 PUFFS/INHALER INH SCH (09:16)
[2021-01-23] MEDS: allopurinoL 300 MG TAB PO SCH (09:17)
[2021-01-23] MEDS: ASPIRIN 81 MG ECTAB PO SCH (09:20)
[2021-01-23] MEDS: POLYETHYLENE (MIRALAX) 17 GM PACK PO SCH (09:20)
--- NOTE | 2021-01-23 17:28 | Hospitalist Progress Note ---
Date of Service January 23, 2021 Assessment & Plan (1) Weakness: Plan: probably multifactorial -main factors being dehydration and deconditioning -?hypercalcemia playing a role --->rehydrated --->PT/OT eval and treat --->eval for hypercalcemia (2) Chronic atrial fibrillation: Plan: rate controlled, anticoagulated (3) Hypercalcemia: Plan: ?etiology - check PTH, follow - w/u vs treat further largely based on PTH; vitamin D was 59.8 on 01/18 (4) CKD (chronic kidney disease), stage III: Plan: creat improved w fluids, continue to hold lasix (5) Hypertension: Plan: BP reasonable, continue to hold diuretics (6) Anemia: Plan: Hgb stable continue to follow (7) Depression: Plan: Chronic -Continue Lexapro 10 mg daily (8) GERD (gastroesophageal reflux disease): Plan: Chronic -Continue Protonix (9) CAD (coronary artery disease): Plan: Chronic. Troponin undetectable. no chest pain. -Continue Simvastatin -Continue metoprolol -Continue ASA (10) Hyperlipidemia: Plan: Chronic -Continue simvastatin (11) COPD (chronic obstructive pulmonary disease): Plan: Chronic, no sob -Continue Fluticsone/Salmeterol -Continue ipratropium/albuterol -Continue Guaifenesin (12) Central sleep apnea: Plan: Chronic -Continue CPAP qHS Plan: continue on med surg, PT/OT eval and treat - came from home but unfortunately likely to need rehab apixiban DVT proph Admission and Anticipated Discharge Date Admission Date: January 22, 2021 Subjective hard of hearing - hx obtained from both pt and weak - was home for about 2wks from rehab after prior hospitalization - was on fluid restriction, having home PT come - was doing well overall first week but then week 2 started getting progressively weaker to where he couldn't manage. still weak - tried to get up when brought brace but was max assist of 2. brief abdominal pain earlier this afternoon - vague not there before and not there now Review of Systems Review of Systems: All systems reviewed & are unremarkable except as noted in HPI & below Physical Exam Physical Exam: aao pleasant nad heent nc at mmm breathing unlabored no accessory muscles good effort abd soft nd mild LLQ tender no guarding no rebound Results & Data Results & Data ([facility]) Vital Signs (Past 12 Hours) Vital Signs Pulse Pulse Resp BP Pulse Ox 01/23/21 16:10 72 18 111/77 98 01/23/21 10:30 70 22 155/133 H 92 01/23/21 05:40 70 20 94 01/23/21 05:30 72 20 93 PG Care Time/CCT Total # of Minutes Spent Total Time Spent with Patient: Total time spent is greater than 50% in coordination of care (as documented) at patient's floor/unit and/or counseling patient: Coding Level of Care Code 15802 Subseq Hosp Care Lvl 3 Diagnoses Weakness R53.1 Chronic atrial fibrillation I48.20 CKD (chronic kidney disease), stage III N18.30 Hypertension I10 Hypertension type: essential hypertension Anemia D64.9 Depression F32.9 GERD (gastroesophageal reflux disease) K21.9 CAD (coronary artery disease) I25.10 Hyperlipidemia E78.2 Hyperlipidemia type: mixed hyperlipidemia COPD (chronic obstructive pulmonary disease) J44.9 COPD type: unspecified COPD Central sleep apnea G47.31 Hypercalcemia E83.52 (1) Hypertension Hypertension type: essential hypertension Qualified Code(s): I10 - Essential (primary) hypertension (2) Hyperlipidemia Hyperlipidemia type: mixed hyperlipidemia Qualified Code(s): E78.2 - Mixed hyperlipidemia (3) COPD (chronic obstructive pulmonary disease) COPD type: unspecified COPD Qualified Code(s): J44.9 - Chronic obstructive pulmonary disease, unspecified
[2021-01-23] MEDS: ESCITALOPRAM OXALATE 10 MG TAB PO SCH (20:44)
--- NOTE | 2021-01-23 22:40 | Electrocardiogram Report ---
Test Reason : Blood Pressure : / mmHG Vent. Rate : 069 BPM Atrial Rate : 061 BPM P-R Int : 000 ms QRS Dur : 144 ms QT Int : 460 ms P-R-T Axes : 000 -38 102 degrees QTc Int : 492 ms Poor data quality, interpretation may be adversely affected Ventricular-paced rhythm with occasional supraventricular complexes Abnormal ECG When compared with ECG of 12-OCT-2020 05:40, No significant change was found Confirmed by Ranjeet Stoll ([id number]) on 01/23/2021 10:40:18 PM Referred By: Blake Stanton Confirmed By:Ranjeet Stoll
[2021-01-24] MEDS: PANTOprazole 40 MG TAB PO SCH (05:46)
[2021-01-24 07:13] LABS: Basophils # (auto) 0.01 K/uL (0-0.2); Basophils % (auto) 0.2 %; Eosinophils # (auto) 0.14 K/uL (0-0.5); Hemoglobin 9.4 g/dL (14.0-18.0); Lymphocytes # (auto) 1.13 K/uL (1.2-3.4); Mean Corpuscular Hemoglobin 30.1 pg (25-34); Mean Corpuscular Hgb Conc 32.4 g/dL (32-36); Mean Corpuscular Volume 92.9 fL (80-100); Mean Platelet Volume 11.5 fL (7.4-10.4); Monocytes # (auto) 0.45 K/uL (0.11-0.59); Monocytes % (auto) 9.6 %; Neutrophils # (auto) 2.97 K/uL (1.4-6.5); Neutrophils % (auto) 63.2 %; Platelet Count 280 K/uL (130-400); RDW Coefficient of Variation 16.5 % (11.5-14.5); RDW Standard Deviation 56.1 fL (36.4-46.3); Red Blood Count 3.12 M/uL (4.7-6.1)
[2021-01-24 08:00] LABS: BUN Creatinine Ratio 17.9 (10-20); Creatinine Clr Calc Pharmacy 63.1 ml/min; Est GFR (African American) 79.9 ml/min; Est GFR (Non-African American) 68.9 ml/min; Potassium 3.4 mmol/L (3.5-5.1)
[2021-01-24] MEDS: ASPIRIN 81 MG ECTAB PO SCH (08:17)
[2021-01-24] MEDS: APIXABAN 2.5 MG TAB PO SCH ×2 (08:17→20:08)
[2021-01-24] MEDS: FLUTICASONE PROPIONATE NA SPR 16 GM BTL SCH (08:17)
[2021-01-24] MEDS: allopurinoL 300 MG TAB PO SCH (08:17)
[2021-01-24] MEDS: FLUTICASONE/VILANTEROL 100/25MCG 14 PUFFS/INHALER INH SCH (08:17)
[2021-01-24] MEDS: guaiFENesin 600 MG TABCR PO SCH ×2 (08:17→20:08)
[2021-01-24] MEDS: POLYETHYLENE (MIRALAX) 17 GM PACK PO SCH (08:17)
[2021-01-24] MEDS: DOCUSATE SODIUM 100 MG CAP PO SCH ×2 (08:17→20:08)
--- NOTE | 2021-01-24 16:55 | Hospitalist Progress Note ---
Date of Service January 24, 2021 Assessment & Plan (1) Weakness: Plan: probably multifactorial -main factors being dehydration and deconditioning -?hypercalcemia playing a rolecontinue to follow, evaluating as below --->rehydrated --->PT/OT eval and treatunfortunately appears likely to need rehab --->eval for hypercalcemia (2) Chronic atrial fibrillation: Plan: rate controlled, anticoagulated (3) Hypercalcemia: Plan: ?etiology -awaiting PTH, follow - w/u vs treat further largely based on PTH; vitamin D was 59.8 on 01/18 (4) CKD (chronic kidney disease), stage III: Plan: creat improved w fluids, continue to hold lasix, follow (5) Hypertension: Plan: BP reasonable given the situation continue to hold diuretics (6) Anemia: Plan: Hgb stable, continue to follow periodically (7) Depression: Plan: Chronic -Continue Lexapro 10 mg daily (8) GERD (gastroesophageal reflux disease): Plan: Chronic -Continue Protonix (9) CAD (coronary artery disease): Plan: Chronic. Troponin undetectable. no chest pain. -Continue Simvastatin -Continue metoprolol -Continue ASA (10) Hyperlipidemia: Plan: Chronic -Continue simvastatin (11) COPD (chronic obstructive pulmonary disease): Plan: Chronic, no sob -Continue Fluticsone/Salmeterol -Continue ipratropium/albuterol -Continue Guaifenesin (12) Central sleep apnea: Plan: Chronic -Continue CPAP qHS Plan: continue on med surg, PT/OT eval and treat - came from home but unfortunately likely to need rehabdoes appear stable if/when bed is available apixiban DVT proph Admission and Anticipated Discharge Date Admission Date: January 22, 2021 Subjective No new HPI review of systems. Patient is navigating the room in his wheelchair. Frustrated with the idea of going back to rehab. Review of Systems Review of Systems: All systems reviewed & are unremarkable except as noted in HPI & below Physical Exam Physical Exam: In general he is awake and alert pleasant no physical distress. HEENT normocephalic atraumatic mucous membranes moist. Breathing unlabored no accessory muscle use good effort. Skin shows no rashes no pallor or icterus. Neuro without focal deficits. Results & Data Results & Data ([facility]) Vital Signs (Past 12 Hours) Vital Signs Temp Pulse Resp BP Pulse Ox 01/24/21 16:21 97.9 F 71 16 146/72 H 95 01/24/21 06:42 97.7 F 70 20 164/78 H 95 PG Care Time/CCT Total # of Minutes Spent Total Time Spent with Patient: Total time spent is greater than 50% in coordination of care (as documented) at patient's floor/unit and/or counseling patient: Coding Level of Care Code 35939 Subseq Hosp Care Lvl 2 Diagnoses Weakness R53.1 Chronic atrial fibrillation I48.20 Hypercalcemia E83.52 CKD (chronic kidney disease), stage III N18.30 Hypertension I10 Hypertension type: essential hypertension Anemia D64.9 Depression F32.9 GERD (gastroesophageal reflux disease) K21.9 CAD (coronary artery disease) I25.10 Hyperlipidemia E78.2 Hyperlipidemia type: mixed hyperlipidemia COPD (chronic obstructive pulmonary disease) J44.9 COPD type: unspecified COPD Central sleep apnea G47.31 (1) Hypertension Hypertension type: essential hypertension Qualified Code(s): I10 - Essential (primary) hypertension (2) Hyperlipidemia Hyperlipidemia type: mixed hyperlipidemia Qualified Code(s): E78.2 - Mixed hyperlipidemia (3) COPD (chronic obstructive pulmonary disease) COPD type: unspecified COPD Qualified Code(s): J44.9 - Chronic obstructive pulmonary disease, unspecified
[2021-01-24] MEDS: ESCITALOPRAM OXALATE 10 MG TAB PO SCH (18:15)
[2021-01-24] MEDS: SIMVASTATIN 10 MG TAB PO SCH (20:08)
[2021-01-24] MEDS: METOPROLOL TARTRATE 25 MG TAB PO SCH (20:09)
[2021-01-24] MEDS: TRAVOPROST Z 0.004% OPH SOLN 2.5 ML BTL OPB SCH (20:09)
[2021-01-25] MEDS: PANTOprazole 40 MG TAB PO SCH (06:08)
[2021-01-25] MEDS: FLUTICASONE/VILANTEROL 100/25MCG 14 PUFFS/INHALER INH SCH (08:33)
[2021-01-25] MEDS: ASPIRIN 81 MG ECTAB PO SCH (08:33)
[2021-01-25] MEDS: allopurinoL 300 MG TAB PO SCH (08:33)
[2021-01-25] MEDS: APIXABAN 2.5 MG TAB PO SCH ×2 (08:33→20:44)
[2021-01-25] MEDS: FLUTICASONE PROPIONATE NA SPR 16 GM BTL SCH (08:34)
[2021-01-25] MEDS: guaiFENesin 600 MG TABCR PO SCH ×2 (08:34→20:44)
[2021-01-25] MEDS: POLYETHYLENE (MIRALAX) 17 GM PACK PO SCH (08:38)
[2021-01-25] MEDS: DOCUSATE SODIUM 100 MG CAP PO SCH ×2 (08:38→20:48)
[2021-01-25] MEDS: ESCITALOPRAM OXALATE 10 MG TAB PO SCH (16:10)
--- NOTE | 2021-01-25 20:20 | Hospitalist Progress Note ---
Date of Service January 25, 2021 Assessment & Plan (1) Weakness: Plan: probably multifactorial -main factors being dehydration and deconditioning -?hypercalcemia playing a rolecontinue to follow, evaluating as below --->rehydrated --->PT/OT eval and treatunfortunately appears likely to need rehabCase management working on this --->eval for hypercalcemia underway (2) Chronic atrial fibrillation: Plan: rate controlled, anticoagulated (3) Hypercalcemia: Plan: ?etiology -PTH low, sending PTHrp as well as SPEP/UPEP (particularly given the turnaround time of all of these tests is very slowand given that the hypercalcemia may be contributing to his weakness, while a truly stepwise approach might be to wait on the PTHrp first and then order SPEP/UPEP if the former does not yield a high result, it will also result in a significant delay in diagnosis, which given his weakness may also result in a delay in treatment. 59.8 on 01/18, probably not relevant but possiblyTSH has been repeatedly and recently normal (4) CKD (chronic kidney disease), stage III: Plan: creat improved w fluids, continue to hold lasix, follow periodically (5) Hypertension: Plan: BP remains reasonable given the situation continue to hold diuretics (6) Anemia: Plan: Hgb stable, continue to follow periodically (7) Depression: Plan: Chronic -Continue Lexapro 10 mg daily (8) GERD (gastroesophageal reflux disease): Plan: Chronic -Continue Protonix (9) CAD (coronary artery disease): Plan: Chronic. Troponin undetectable. no chest pain. -Continue Simvastatin -Continue metoprolol -Continue ASA (10) Hyperlipidemia: Plan: Chronic -Continue simvastatin (11) COPD (chronic obstructive pulmonary disease): Plan: Chronic, no sob -Continue Fluticsone/Salmeterol -Continue ipratropium/albuterol -Continue Guaifenesin (12) Central sleep apnea: Plan: Chronic -Continue CPAP qHS Plan: continue on med surg, PT/OT eval and treat - came from home but unfortunately likely to need rehabdoes appear stable if/when bed is available apixiban DVT proph Admission and Anticipated Discharge Date Admission Date: January 22, 2021 Subjective No new complaints. About the lunch. Still awaiting placement. Review of Systems Review of Systems: All systems reviewed & are unremarkable except as noted in HPI & below Physical Exam Physical Exam: Sitting in bed no distress. HEENT normocephalic atraumatic mucous membranes moist. Breathing unlabored no accessory muscle use good effort. Skin shows no rashes no pallor or icterus. Neuro without focal deficits. Results & Data Results & Data ([facility]) Vital Signs (Past 12 Hours) Vital Signs Temp Pulse Resp BP Pulse Ox 01/25/21 15:38 98.2 F 70 18 127/76 94 PG Care Time/CCT Total # of Minutes Spent Total Time Spent with Patient: Total time spent is greater than 50% in coordination of care (as documented) at patient's floor/unit and/or counseling patient: Coding Level of Care Code 04384 Subseq Hosp Care Lvl 1 Diagnoses Weakness R53.1 Chronic atrial fibrillation I48.20 Hypercalcemia E83.52 CKD (chronic kidney disease), stage III N18.30 Hypertension I10 Hypertension type: essential hypertension Anemia D64.9 Depression F32.9 GERD (gastroesophageal reflux disease) K21.9 CAD (coronary artery disease) I25.10 Hyperlipidemia E78.2 Hyperlipidemia type: mixed hyperlipidemia COPD (chronic obstructive pulmonary disease) J44.9 COPD type: unspecified COPD Central sleep apnea G47.31 (1) Hypertension Hypertension type: essential hypertension Qualified Code(s): I10 - Essential (primary) hypertension (2) Hyperlipidemia Hyperlipidemia type: mixed hyperlipidemia Qualified Code(s): E78.2 - Mixed hyperlipidemia (3) COPD (chronic obstructive pulmonary disease) COPD type: unspecified COPD Qualified Code(s): J44.9 - Chronic obstructive pulmonary disease, unspecified
[2021-01-25] MEDS: METOPROLOL TARTRATE 25 MG TAB PO SCH (20:44)
[2021-01-25] MEDS: SIMVASTATIN 10 MG TAB PO SCH (20:45)
[2021-01-25] MEDS: TRAVOPROST Z 0.004% OPH SOLN 2.5 ML BTL OPB SCH (20:46)
[2021-01-26] MEDS: PANTOprazole 40 MG TAB PO SCH (05:57)
[2021-01-26] MEDS: FLUTICASONE PROPIONATE NA SPR 16 GM BTL SCH (08:19)
[2021-01-26] MEDS: FLUTICASONE/VILANTEROL 100/25MCG 14 PUFFS/INHALER INH SCH (08:19)
[2021-01-26] MEDS: APIXABAN 2.5 MG TAB PO SCH ×2 (08:19→20:45)
[2021-01-26] MEDS: guaiFENesin 600 MG TABCR PO SCH ×2 (08:19→20:45)
[2021-01-26] MEDS: ASPIRIN 81 MG ECTAB PO SCH (08:19)
[2021-01-26] MEDS: allopurinoL 300 MG TAB PO SCH (08:19)
[2021-01-26] MEDS: DOCUSATE SODIUM 100 MG CAP PO SCH ×2 (08:22→20:45)
[2021-01-26] MEDS: POLYETHYLENE (MIRALAX) 17 GM PACK PO SCH (08:23)
[2021-01-26 10:36] LABS: BUN Creatinine Ratio 11.8 (10-20); Calcium 13.5 mg/dl (8.5-10.1); Creatinine Clr Calc Pharmacy 58.5 ml/min; Est GFR (African American) 72.9 ml/min; Est GFR (Non-African American) 62.9 ml/min; Potassium 3.3 mmol/L (3.5-5.1)
[2021-01-26] MEDS ORDERED: ZOLEDRONIC ACID 5 MG in EMPTY BAG 1 ML IV ONE (11:32)
[2021-01-26] MEDS ORDERED: ZOLEDRONIC ACID 4 MG in 0.9 % SODIUM CHLORIDE 100 ML IV ONE (12:00)
[2021-01-26] MEDS: ESCITALOPRAM OXALATE 10 MG TAB PO SCH (16:05)
--- NOTE | 2021-01-26 18:36 | Hospitalist Progress Note ---
Date of Service January 26, 2021 Assessment & Plan (1) Weakness: Plan: probably multifactorial -main factors being dehydration (leading to acute renal failure present on admission that has now resolved) and deconditioning, compounded by a metabolic encephalopathy present on admissionhe was a bit confused, at least seeminglythis seems to have improved a good bit to. Probably was related to the physiologic stress of being dehydrated. -hypercalcemia probably playing a rolecontinue to follow, evaluating as below, treat today --->rehydrated --->PT/OT eval and treatunfortunately appears likely to need rehabCase management working on this --->eval for hypercalcemia underway (2) Chronic atrial fibrillation: Plan: rate controlled, anticoagulated (3) Hypercalcemia: Plan: ?etiology -PTH low, awaiting PTHrp as well as SPEP/UPEP (particularly given the turnaround time of all of these tests is very slowand given that the hypercalcemia may be contributing to his weakness, while a truly stepwise approach might be to wait on the PTHrp first and then order SPEP/UPEP if the former does not yield a high result, it will also result in a significant delay in diagnosis, which given his weakness may also result in a delay in treatment. 59.8 on 01/18, probably not relevant but possiblyTSH has been repeatedly and recently normal -With persistent calciums corrected to 13 range, and today's calcium even being a little bit higher, opted to treat with bisphosphonateis not really having acute symptoms warranting acute management with calcitonin followed by bisphosphonate, but I do suspect that the high calcium may be contributing to his weakness someand therefore a dose of zoledronic acid was given. Obviously this may take a few days to really take effect, and depending on the course/etiology of what is causing his hypercalcemia he may need to be redosed periodically. -Discussed with patient and this will almost certainly be an open issue for requiring ongoing follow-up/management even after he is out of the hospital/at SNF (4) CKD (chronic kidney disease), stage III: Plan: creat improved w fluids, continue to hold lasix, follow periodically (5) Hypertension: Plan: BP remains acceptable given the situation continue to hold diuretics (6) Anemia: Plan: Hgb stable, continue to follow periodically (7) Depression: Plan: Chronic -Continue Lexapro 10 mg daily (8) GERD (gastroesophageal reflux disease): Plan: Chronic -Continue Protonix (9) CAD (coronary artery disease): Plan: Chronic. Troponin undetectable. no chest pain. -Continue Simvastatin -Continue metoprolol -Continue ASA (10) Hyperlipidemia: Plan: Chronic -Continue simvastatin (11) COPD (chronic obstructive pulmonary disease): Plan: Chronic, no sob -Continue Fluticsone/Salmeterol -Continue ipratropium/albuterol -Continue Guaifenesin (12) Central sleep apnea: Plan: Chronic -Continue CPAP qHS Plan: continue on med surg, PT/OT eval and treat - came from home but unfortunately likely to need rehabdoes appear stable if/when bed is available first choice is [facility] apixiban DVT proph Admission and Anticipated Discharge Date Admission Date: January 22, 2021 Subjective No new complaints. First seen whenever he was working with therapyhe was still weak and still needing a lot of assist, but they noted he was doing better. Later revisited whenever was presentupdated about the hypercalcemia, answered all questions to the best my ability. Review of Systems Review of Systems: All systems reviewed & are unremarkable except as noted in HPI & below Physical Exam Physical Exam: In general he is awake and alert pleasant hard of hearing no distress. HEENT normocephalic atraumatic mucous membranes moist. Breathing unlabored no accessory muscle use good effort. Skin shows no rashes no pallor or icterus. Neuro without focal deficits. Results & Data Results & Data ([facility]) Vital Signs (Past 12 Hours) Vital Signs Temp Pulse Resp BP Pulse Ox 01/26/21 16:03 97.7 F 70 20 112/74 95 01/26/21 07:55 97.9 F 70 20 152/81 H 95 PG Care Time/CCT Total # of Minutes Spent Total Time Spent with Patient: Total time spent is greater than 50% in coordination of care (as documented) at patient's floor/unit and/or counseling patient: Coding Level of Care Code 88202 Subseq Hosp Care Lvl 3 Diagnoses Weakness R53.1 Chronic atrial fibrillation I48.20 Hypercalcemia E83.52 CKD (chronic kidney disease), stage III N18.30 Hypertension I10 Hypertension type: essential hypertension Anemia D64.9 Depression F32.9 GERD (gastroesophageal reflux disease) K21.9 CAD (coronary artery disease) I25.10 Hyperlipidemia E78.2 Hyperlipidemia type: mixed hyperlipidemia COPD (chronic obstructive pulmonary disease) J44.9 COPD type: unspecified COPD Central sleep apnea G47.31 (1) Hypertension Hypertension type: essential hypertension Qualified Code(s): I10 - Essential (primary) hypertension (2) Hyperlipidemia Hyperlipidemia type: mixed hyperlipidemia Qualified Code(s): E78.2 - Mixed hyperlipidemia (3) COPD (chronic obstructive pulmonary disease) COPD type: unspecified COPD Qualified Code(s): J44.9 - Chronic obstructive pulmonary disease, unspecified
[2021-01-26] MEDS ORDERED: POTASSIUM CHLORIDE CRTAB 20 MEQ TABCR PO ONE (19:00)
[2021-01-26] MEDS: SIMVASTATIN 10 MG TAB PO SCH (20:44)
[2021-01-26] MEDS: METOPROLOL TARTRATE 25 MG TAB PO SCH (20:45)
[2021-01-26] MEDS: TRAVOPROST Z 0.004% OPH SOLN 2.5 ML BTL OPB SCH (20:46)
[2021-01-27] MEDS: PANTOprazole 40 MG TAB PO SCH ×2 (06:00→06:01)
[2021-01-27] MEDS: ACETAMINOPHEN 325 MG TAB PO PRN ×2 (06:01→21:19)
[2021-01-27 08:55] LABS: BUN Creatinine Ratio 11.2 (10-20); Calcium 13.5 mg/dl (8.5-10.1); Creatinine Clr Calc Pharmacy 54.5 ml/min; Est GFR (African American) 66.9 ml/min; Est GFR (Non-African American) 57.7 ml/min; Potassium 3.7 mmol/L (3.5-5.1)
[2021-01-27] MEDS: APIXABAN 2.5 MG TAB PO SCH ×3 (09:30→23:01)
[2021-01-27] MEDS: guaiFENesin 600 MG TABCR PO SCH ×3 (09:30→23:02)
[2021-01-27] MEDS: ASPIRIN 81 MG ECTAB PO SCH (09:31)
[2021-01-27] MEDS: allopurinoL 300 MG TAB PO SCH (09:31)
[2021-01-27] MEDS: FLUTICASONE PROPIONATE NA SPR 16 GM BTL SCH (09:31)
[2021-01-27] MEDS: FLUTICASONE/VILANTEROL 100/25MCG 14 PUFFS/INHALER INH SCH (09:31)
[2021-01-27] MEDS: DOCUSATE SODIUM 100 MG CAP PO SCH ×3 (09:43→23:01)
[2021-01-27] MEDS: POLYETHYLENE (MIRALAX) 17 GM PACK PO SCH (09:43)
[2021-01-27] MEDS ORDERED: SODIUM CHLORIDE 0.9% 1000ML 1,000 ML IV SCH (12:45)
[2021-01-27] MEDS: ESCITALOPRAM OXALATE 10 MG TAB PO SCH ×2 (15:52→16:11)
[2021-01-27 16:41] LABS: Albumin 2.4 g/dL (3.8-4.8); Alpha 1 Globulin 0.3 g/dL (0.2-0.3); Alpha 2 Globulin 0.6 g/dL (0.5-0.9); Beta-1-Globulin 0.4 g/dL (0.4-0.6); Beta-2-Globulin 4.3 g/dL (0.2-0.5); Gamma Globulin 0.2 g/dL (0.8-1.7); Monoclonal Protein Band 1 4.3 g/dL (NONE DETECTED); Monoclonal Protein Band 2 DNR g/dL (NONE DETECTED); Monoclonal Protein Band 3 DNR g/dL (NONE DETECTED); Total Protein 8.2 g/dL (6.1-8.1)
--- NOTE | 2021-01-27 19:11 | Hospitalist Progress Note ---
Date of Service January 27, 2021 Assessment & Plan (1) Weakness: Plan: probably multifactorial -main factors being dehydration (leading to acute renal failure present on admission that has now resolved) and deconditioning, compounded by a metabolic encephalopathy present on admissionhe was a bit confused, at least seeminglythis initially improved but now today has worsened again. concern with calcium rising that delirium today may be from that, as well as recurrent dehydration (creatinine up a little, and not eating/drinking well) -hypercalcemia probably playing a rolecontinue to follow, evaluating as below, treat as below --->rehydrated initially - fluids again restarted today --->PT/OT eval and treatunfortunately appears likely to need rehabCase management working on this --->eval for hypercalcemia underway see below metabolic encephalopathy discussed with - still if no change in status and no acuity concerns from heme/onc would likely be better served at SNF as long as PO intake/labs monitored closely - since less restrictive environment and more PT/OT -- obviously situation fluid at this time. labs ordered this evening, signed out to night coverage. (2) Hypercalcemia: Plan: ?etiology -PTH low, awaiting PTHrp and UPEP, SPEP does show a spike. Calcium climbing a littlewas given zoledronate yesterday, certainly too soon to see any impact. Fluids restarted today. Not entirely clear if worsening calcium is really driving the delirium but this is of concern -- will continue to follow. ask heme/onc for input since concern on myeloma grows and not sure if some of current presentation might relate/might require more specific management; also with dx w/u underway but suspicious - don't want his situation to slip through the cracks. vitamin D 59.8 on 01/18, probably not relevant but possiblyTSH has been repeatedly and recently normal (3) Chronic atrial fibrillation: Plan: rate controlled, anticoagulated (4) CKD (chronic kidney disease), stage III: Plan: creat improved w fluids, continue to hold lasix, follow BMP (5) Hypertension: Plan: BP remains acceptable given the situation, continue to hold diuretics (6) Anemia: Plan: Hgb stable, continue to follow periodically (7) Depression: Plan: Chronic -Continue Lexapro 10 mg daily (8) GERD (gastroesophageal reflux disease): Plan: Chronic -Continue Protonix (9) CAD (coronary artery disease): Plan: Chronic. Troponin undetectable. no chest pain. -Continue Simvastatin -Continue metoprolol -Continue ASA (10) Hyperlipidemia: Plan: Chronic -Continue simvastatin (11) COPD (chronic obstructive pulmonary disease): Plan: Chronic, no sob -Continue Fluticsone/Salmeterol -Continue ipratropium/albuterol -Continue Guaifenesin (12) Central sleep apnea: Plan: Chronic -Continue CPAP qHS Plan: continue on med surg, PT/OT eval and treat - came from home but unfortunately likely to need rehabdoes appear stable if/when bed is available first choice is [facility] - see above; tentative plan for tomorrow unless new findings change this apixiban DVT proph Admission and Anticipated Discharge Date Admission Date: January 22, 2021 Subjective confused today. no HPI or ROS obtainable. seen three times today (in AM, in afternoon revisited when present, then re-rounded yet again in evening) - no meaningful hPI or ROS at any point Review of Systems Review of Systems: Unobtainable due to cognitive status Physical Exam Physical Exam: awake and looks at times to voice, no distress but very confused. heent nc at mmm. lungs cta b/l no rr//w good effort. cardio reg no r/m/g. abd soft. ext no calf tenderness, ongoing ~trace edema. cn 2-12 grossly intact as best as can be assessed with him not following commands, no focal deficits. motor symmetric apperas to be 4+/5 equal throughout no focal weakness. skin no rashes no pallor or icterus Results & Data Results & Data ([facility]) Vital Signs (Past 12 Hours) Vital Signs Temp Pulse Resp BP BP Pulse Ox 01/27/21 14:47 98.4 F 70 17 158/71 H 90 01/27/21 07:30 98.1 F 70 19 128/66 94 PG Care Time/CCT Total # of Minutes Spent Total Time Spent with Patient: Total time spent is greater than 50% in coordination of care (as documented) at patient's floor/unit and/or counseling patient: Coding Level of Care Code 19831 Subseq Hosp Care Lvl 3 Diagnoses Weakness R53.1 Chronic atrial fibrillation I48.20 Hypercalcemia E83.52 CKD (chronic kidney disease), stage III N18.30 Hypertension I10 Hypertension type: essential hypertension Anemia D64.9 Depression F32.9 GERD (gastroesophageal reflux disease) K21.9 CAD (coronary artery disease) I25.10 Hyperlipidemia E78.2 Hyperlipidemia type: mixed hyperlipidemia COPD (chronic obstructive pulmonary disease) J44.9 COPD type: unspecified COPD Central sleep apnea G47.31 (1) Hypertension Hypertension type: essential hypertension Qualified Code(s): I10 - Essential (primary) hypertension (2) Hyperlipidemia Hyperlipidemia type: mixed hyperlipidemia Qualified Code(s): E78.2 - Mixed hyperlipidemia (3) COPD (chronic obstructive pulmonary disease) COPD type: unspecified COPD Qualified Code(s): J44.9 - Chronic obstructive pulmonary disease, unspecified
[2021-01-27 19:28] LABS: Basophils # (auto) 0.01 K/uL (0-0.2); Basophils % (auto) 0.3 %; Hematocrit (blood only) 38.2 % (42-52); Hemoglobin 12.7 g/dL (14.0-18.0); Lymphocytes # (auto) 0.64 K/uL (1.2-3.4); Lymphocytes % (auto) 17.4 %; Mean Corpuscular Hemoglobin 30.8 pg (25-34); Mean Corpuscular Hgb Conc 33.2 g/dL (32-36); Mean Corpuscular Volume 92.5 fL (80-100); Mean Platelet Volume 11.5 fL (7.4-10.4); Monocytes # (auto) 0.47 K/uL (0.11-0.59); Monocytes % (auto) 12.8 %; Neutrophils # (auto) 2.55 K/uL (1.4-6.5); Neutrophils % (auto) 69.5 %; Platelet Count 206 K/uL (130-400); RDW Coefficient of Variation 16.6 % (11.5-14.5); RDW Standard Deviation 56.4 fL (36.4-46.3); Red Blood Count 4.13 M/uL (4.7-6.1); White Blood Count 3.67 K/uL (4.8-10.8)
[2021-01-27 19:29] LABS: Base Excess VBG 2.4 mEq/L; Oxygen Saturation VBG 86.3 %; pH VBG 7.49 (7.36-7.41)
[2021-01-27 20:47] LABS: BUN Creatinine Ratio 11.6 (10-20); Calcium 12.3 mg/dl (8.5-10.1); Creatinine Clr Calc Pharmacy 47.6 ml/min; Est GFR (African American) 56.8 ml/min; Potassium 3.6 mmol/L (3.5-5.1)
[2021-01-27] MEDS: SIMVASTATIN 10 MG TAB PO SCH ×2 (21:14→23:02)
[2021-01-27] MEDS: METOPROLOL TARTRATE 25 MG TAB PO SCH ×2 (21:18→23:02)
[2021-01-27] MEDS: TRAVOPROST Z 0.004% OPH SOLN 2.5 ML BTL OPB SCH ×2 (21:20→23:02)
[2021-01-28 05:16] LABS: Creatinine Ur 81 mg/dL (20-320); Protein, Urine Random 194 mg/dL (5-25); Ur Protein/Creat Ratio mg/g 2395 mg/g creat (22-128); Urine Abnormal Protein Band 1 140 mg/dL (NONE DETECTED); Urine Abnormal Protein Band 2 DNR mg/dL (NONE DETECTED); Urine Abnormal Protein Band 3 DNR mg/dL (NONE DETECTED); Urine Protein/Creatinine Ratio 2.395 (0.022-0.128)
[2021-01-28] MEDS: PANTOprazole 40 MG TAB PO SCH (05:32)
[2021-01-28] MEDS ORDERED: SODIUM CHLORIDE 0.9% 1000ML 1,000 ML IV SCH (08:15)
--- NOTE | 2021-01-28 09:39 | XRay Report ---
XR skeletal survey CLINICAL HISTORY: M spike on serum electrophoresis. Evaluate for possible myeloma.. COMPARISON STUDY: No previous studies for comparison. TECHNIQUE: Radiographs were obtained of the appendicular and axial skeleton. FINDINGS: Bones: There is no evidence for an acute fracture. There are radiolucencies seen within the skull narda racteristic of the pattern of multiple myeloma. No other lytic or blastic lesions are seen throughout the imaged bones. Spine: There is diffuse osteopenia seen throughout the cervical, thoracic and lumbar spine with degen erative changes present. Joints:The patient is status post right hip replacement the remaining joint spaces are maintained. Th e bones are in anatomic alignment. Soft tissues:No focal soft tissue swelling is seen. There is no evidence for radiopaque foreign body. IMPRESSION: Diffuse radiolucencies are seen within the skull characteristic of the pattern of multipl e myeloma. No other lytic or blastic lesions are seen. There is diffuse osteopenia present. ACT 112: Negative or not required by law. Electronically signed by: Kendell Orozco M.D. 01/28/2021 9:38 AM
--- NOTE | 2021-01-28 09:55 | Consultation Report ---
DATE OF SERVICE: 01/28/2021. REASON FOR CONSULT: Symptomatic hypercalcemia with SPEP suggestive of possible multiple myeloma. HISTORY OF PRESENT ILLNESS: The patient is an 80-year-old gentleman who was admitted on 01/22/2021 with complaints of altered mental status and worsening weakness. Of note, he had recently been hospitalized at [facility] from 09/28/2020 to 10/02/2020 for right sided periprosthetic femur fracture, which was treated nonoperatively after which he was discharged to rehab. He was then readmitted on 10/12/2020 with worsening confusion and acute hypoxic respiratory failure secondary to multilobar pneumonia and subsequently extubated on 10/13/2020 followed by discharge back to rehab on 10/20/2020. Patient had been in rehab since then up until 01/07/2021 when he returned home to be with his who states that the patient was doing well up until most recent presentation on 01/22/2021 with generalized weakness and confusion. At the time of evaluation of the patient today, he appeared confused and was not able to answer any of my questions. Labs obtained since admission revealed hypercalcemia with calcium level of 13.5 for which he was given IV fluids and zoledronic acid. SPEP revealed M-spike measuring about 4.3 g/dL and random UPEP also demonstrated M-spike of about 140 mg/dL. PAST MEDICAL HISTORY: 1. Coronary artery disease. 2. COPD. 3. Diastolic heart failure. 4. CKD stage III. 5. Diabetes mellitus. 6. Gastroesophageal reflux disease (GERD). 7. Obstructive sleep apnea. 8. MGUS. PAST SURGICAL HISTORY: 1. Right hip replacement. 2. History of CABG. 3. Status post ORIF. 4. Status post pacemaker placement. MEDICATIONS PRIOR TO ADMISSION: 1. Aspirin 81 mg p.o. daily. 2. Ferrous sulfate 325 mg p.o. daily. 3. Simvastatin 10 mg p.o. at bedtime. 4. Furosemide 40 mg p.o. b.i.d. 5. Allopurinol 300 mg p.o. daily. 6. Metoprolol. 7. Protonix 40 mg p.o. daily. 8. Spironolactone 25 mg p.o. b.i.d. 9. Apixaban 2.5 mg p.o. b.i.d. 10. MiraLax as needed. ALLERGIES: No known drug allergies. SOCIAL HISTORY: Unable to obtain. FAMILY HISTORY: Unable to obtain. REVIEW OF SYSTEMS: Unable to obtain due to altered mental status. PHYSICAL EXAMINATION: VITAL SIGNS: Blood pressure 149/79, heart rate 68, respiratory rate 16, temperature 36.4, oxygen saturation 96% on room air. RESPIRATORY: Bilateral basal crackles. CARDIOVASCULAR: Heart was regular rate and rhythm without significant murmur, gallops, or rubs. GASTROINTESTINAL: No palpable hepatosplenomegaly. ABDOMEN: Soft with normal bowel sounds. LYMPHATIC SYSTEM: No palpable peripheral lymphadenopathy. LOWER EXTREMITIES: Negative 2+ pitting edema bilaterally. LABORATORY DATA: CBC on 01/27/2021, significant for white count of 3.6, hemoglobin of 12.7 with hematocrit of 38.2, and platelet count of 206. Chemistry on 01/27/2021, unremarkable except for calcium of 12.3. A random UPEP on 01/26/2021 revealed monoclonal protein present measuring about 140 mg/dL. SPEP on 01/26/2021 revealed a monoclonal protein of 4.3 g/dL. IMAGING STUDIES: CT head on 01/22/2021 revealed no acute intracranial abnormality. Chest x-ray on 01/22/2021 reviewed, cardiomegaly with pulmonary vascular congestion as well as unchanged small pleural effusions with bibasilar opacities suggestive of atelectasis versus pneumonitis. CT abdomen and pelvis on 01/22/2021 revealed: 1. Bibasilar patchy air space opacities suggestive of multifocal viral pneumonia. 2. No bowel obstruction or bowel thickening. 3. Cholelithiasis. 4. Cirrhotic liver. 5. Right hip total joint arthroplasty with cortical thickening of the proximal right femur, which is new from prior compatible with healed versus healing periprosthetic fracture as well as progressive lucency around the anterior aspect of the femoral stem, which is suspicious for hardware loosening. IMPRESSION: 1. 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 3. Liver cirrhosis. 4. Multifocal pneumonia. 5. Altered mental status. An 80-year-old gentleman who was admitted with altered mental status and found to have hypercalcemia as well as abnormal SPEP suggestive of plasma cell malignancy. We would recommend obtaining serum immunofixation as well as urine immunofixation to identify monoclonal protein. Would also recommend checking quantitative immunoglobulins in the setting of multifocal pneumonia, as the patient may benefit from IVIG if IgG level is less than 400. Also, recommend checking serum free light chains. Upon discharge from hospital, patient can have outpatient PET/CT to assess for plasmacytomas as well as bone lesions as I suspect that prior fracture may have been pathologic. He will also require a bone marrow biopsy for staging, which can also be performed as an outpatient. Suspect that the patient has had plasma cell dyscrasia for a long time based on review of prior records, which indicate that he has had abnormal UPEP in the past. It is, however, unclear if he had been followed by [facility]. PLAN: 1. Recommend obtaining immunofixation on serum and urine. Also, obtain quantitative immunoglobulins, and serum free light chain ratio. 2. Agree with IV fluids, bisphosphonates for hypercalcemia. Also, consider giving calcitonin if calcium level does not continue improving. 3. Outpatient PET/CT and bone marrow biopsy. Thank you for this consult. Oncology will follow the patient upon discharge from hospital. Please feel free to call if you have any further questions. Job ID: [id number] [facility]
[2021-01-28] MEDS: allopurinoL 300 MG TAB PO SCH ×2 (09:57→10:51)
[2021-01-28] MEDS: ASPIRIN 81 MG ECTAB PO SCH ×2 (09:58→10:51)
[2021-01-28] MEDS: guaiFENesin 600 MG TABCR PO SCH ×2 (09:59→10:52)
[2021-01-28] MEDS: FLUTICASONE PROPIONATE NA SPR 16 GM BTL SCH (09:59)
[2021-01-28] MEDS: APIXABAN 2.5 MG TAB PO SCH ×2 (09:59→10:51)
[2021-01-28] MEDS: FLUTICASONE/VILANTEROL 100/25MCG 14 PUFFS/INHALER INH SCH (10:00)
[2021-01-28] MEDS: POLYETHYLENE (MIRALAX) 17 GM PACK PO SCH ×2 (10:02→10:52)
[2021-01-28] MEDS: DOCUSATE SODIUM 100 MG CAP PO SCH ×2 (10:02→10:52)
[2021-01-28 10:45] LABS: Basophils # (auto) 0.01 K/uL (0-0.2); Basophils % (auto) 0.2 %; Eosinophils # (auto) 0.01 K/uL (0-0.5); Eosinophils % (auto) 0.2 %; Hematocrit (blood only) 28.9 % (42-52); Hemoglobin 9.3 g/dL (14.0-18.0); Immature Granulocytes # (auto) 0.01 K/uL (0.00-0.02); Immature Granulocytes % (auto) 0.2 %; Lymphocytes # (auto) 0.79 K/uL (1.2-3.4); Lymphocytes % (auto) 16.4 %; Mean Corpuscular Hemoglobin 30.5 pg (25-34); Mean Corpuscular Hgb Conc 32.2 g/dL (32-36); Mean Corpuscular Volume 94.8 fL (80-100); Mean Platelet Volume 11.6 fL (7.4-10.4); Monocytes # (auto) 0.51 K/uL (0.11-0.59); Monocytes % (auto) 10.6 %; Neutrophils # (auto) 3.49 K/uL (1.4-6.5); Neutrophils % (auto) 72.4 %; Platelet Count 243 K/uL (130-400); RDW Coefficient of Variation 16.9 % (11.5-14.5); RDW Standard Deviation 58.1 fL (36.4-46.3); Red Blood Count 3.05 M/uL (4.7-6.1); White Blood Count 4.82 K/uL (4.8-10.8)
[2021-01-28 11:04] LABS: BUN Creatinine Ratio 13.8 (10-20); Calcium 11.9 mg/dl (8.5-10.1); Creatinine Clr Calc Pharmacy 48.3 ml/min; Est GFR (African American) 57.8 ml/min; Est GFR (Non-African American) 49.9 ml/min; Potassium 3.4 mmol/L (3.5-5.1)
[2021-01-28 15:15] LABS: Immunoglobulin M 6.8 mg/dl (40-230)
--- NOTE | 2021-01-28 20:32 | Discharge Summary ---
Date of Service January 28, 2021 Admission HPI Per Admitting Provider Rodrigo Mane is an 80yo male with multiple medical comorbidities. Patient was admitted to [facility] from 09/28/20 - 10/02/20 for a right-sided periprosthetic femur fracture which was treated non-operatively. He was discharged to [facility] rehab after than hospitalization. He did poorly at rehab and returned to [facility] on 10/12/20 with report of confusion. Patient was intubated on 10/12/20 for acute hypoxic respiratory failure secondary to PNA and was extubated on 10/13/20. He was treated with 7 days of antibiotics for H. influenza PNA as well as IV --> PO steroids for COPD exacerbation. He was discharged to [facility] rehab on 10/20/20 in stable condition. Patient completed rehab and returned home on 01/07/21. He has been living with his and was doing well initially. Unfortunately over the last week he has been having worsening weakness. reports that over the last 2-3 days patient has been unable to stand or ambulate on his own. Also with worsening fatigue, confusion and poor intake. Patient is unable to provide history due to confusion. He does participate with exam. ER Course: Albuterol, Magnesium, NSS Principal Diagnosis Probable multiple myeloma (work-up still underway), delirium due to dehydration/hospitalization, hypercalcemia related to probable myeloma, dehydration related to all of above. Deconditioning/weakness Discharge Exam In general he is in bed asleep, no distress, does not really stir to stimuli today. HEENT normocephalic atraumatic mucous membranes moist. Lungs are clear to auscultation bilaterally no rales rhonchi or wheeze with moderate spontaneous effort. Cardio is regular without rubs murmurs or gallops. Abdomen is soft nondistended no noted tenderness no guarding no rebound no rigidity no masses no organomegaly. Extremities show no cyanosis clubbing or edema. Neuro shows no asymmetryat rest there is no focal neuro deficits cranial nerves II through XII to be intact as best I can assess, equal muscle tone. Skin shows no rashes, no pallor, no icterus. Discharge Data Allergies Allergy/AdvReac Type Severity Reaction Status Date / Time No Known Drug Allergies Allergy Unknown Unknown Verified 01/22/21 10:21 Consultations 01/22/21 19:52 ED Decision to Admit Stat 01/27/21 18:24 Consult Hematology Routine Ordered Studies 01/22/21 16:36 CT abd pelvis IV con only Stat CT head/brain wo con Stat Hospital Course (1) Weakness: probably multifactorial -main factors being dehydration (leading to acute renal failure present on admission that has now resolved) and deconditioning, compounded by a metabolic encephalopathy present on admissionhe was a bit confused, at least seeminglythis initially improved but now today has worsened again. concern with calcium rising that delirium recurrence may be from that, as well as recurrent dehydration (creatinine up a little, and not eating/drinking well), as well as hospitalization/hospital environment -hypercalcemia probably playing a rolecontinue to follow, evaluating as below, treat as below --->rehydrated with IV fluidsp.o. intake not great right nowbut in discussion with SNF PA, we both agreed that given that the SNF is a much more familiar environment for the patient, it is likely he will perk up and start to eat and drink betterthey will follow closely and utilize IV fluids if needed, and if things are really going poorly, we agreed he can always be brought back to the hospitalbut that in the risk-benefit of a very difficult situation with no clear favorable choices, it is probably more favorable to get him to SNF given the likelihood the delirium will clear faster there than here. --->PT/OT eval and treatongoing at SNF --->eval for hypercalcemia underway see below, highly likely to have myeloma metabolic encephalopathy discussed with yesterday, revisited discussions today. She has very good understanding of this. Risk/benefit of going to SNF while reasonably encephalopathicparticularly as it relates to volition to eat or drink discussed with SNF PA we agreed that there are no great choices but with that particular SNF being a familiar environment to the patient, there is a reasonable probability that return to familiar environment may help clear the delirium faster than a prolonged hospitalizationto that end we felt it tenuously in his favor to give trial to transfer to the more familiar and less invasive environment of SNF, they will follow his intake closely, utilize IV fluids if needed, and if things are going truly poorly, of course send him back to the hospitalbut we both agreed that this would likely be more to his benefit that prolonged hospitalization. (2) Hypercalcemia: Highly probable that he has multiple myelomafull work-up still underway. Was given zoledronate 2 days ago for hypercalcemiaI expect this to start to have an impact soonIV fluids have been given to help mitigate the calcium as well. Seen by heme-onc today, discussed personallythere is nothing she is seeing that would be medically acute/crisis as it relates to the myeloma situationshe is going to work on finishing the work-up quickly (made recommendations that I sent prior to discharge as far as further lab work and skeletal survey)and will have close outpatient follow-up, but safe for discharge to SNF in this respect BMP about every other day at SNF (3) Chronic atrial fibrillation: rate controlled, anticoagulated (4) CKD (chronic kidney disease), stage III: creat improved w fluids, continue to hold lasix, follow BMP periodically (5) Hypertension: BP remains acceptable given the situation, continue to hold diuretics - fluid balance will be "work in progress" (6) Anemia: Hgb stable, continue to follow periodically (7) Depression: Chronic -Continue Lexapro 10 mg daily (8) GERD (gastroesophageal reflux disease): Chronic -Continue Protonix (9) CAD (coronary artery disease): Chronic. Troponin undetectable. no chest pain. during his stay -Continue Simvastatin -Continue metoprolol -Continue ASA (10) Hyperlipidemia: Chronic -Continue simvastatin (11) COPD (chronic obstructive pulmonary disease): Chronic, no sob -Continue Fluticsone/Salmeterol -Continue ipratropium/albuterol -Continue Guaifenesin (12) Central sleep apnea: Chronic -Continue CPAP qHS As above discussions notedstable for SNF. expressed concern about a flu outbreak there, but also noted that he was going to be in his own roomto that end she did feel comfortable with him going, we also discussed the utilization of Tamiflu for prophylaxisand she was fully in favor of this. Total Time Total Time Spent Total Time Spent (In Minutes): Greater than 30 Discharge Plan Discharge Items Patient Disposition: Transfer [facility] Reason For Visit: Weakness Discharge Diagnosis: Delirium, hypercalcemia, dehydrationprobable multiple myeloma Activity: Per Instructions section Activity Comment: Per PT/OT Non-emergency contact: Primary Care Provider and Oncologist Call non-emergency contact if: you have any medication questions and your sym ptoms worsen Follow-up/Referrals: Blake Stanton CRNP [Primary Care Provider] - Diet: Regular Addtl Attending Provider Instructions: Delirium -Currently fairly delirious, appears to be related to dehydration, hypercalcemia, and hospital environment -As we discussed, follow p.o. intake, encourage p.o. intakeI suspect as the delirium improves his ability to take p.o. will improve -For now, low threshold for gentle IV fluids if he is not eating or drinking well -For now, would follow basic metabolic panel about every other day to aid in assessment of volume status -As we discussed, certainly if things are not going well we can take him back in the hospital, but given that [facility] is a familiar environment for him, hopefully return to familiarity will help with the delirium as much is anything Hypercalcemia -All signs are pointing to multiple myelomadiagnostic work-up is not yet finished, but SPEP shows a pretty significant spike, skeletal survey appears consistent with myeloma, hypercalcemia does appear consistent with myeloma as well -Was given a dose of zoledronic acid on 01/26, calcium should continue to improve with thisobviously follow periodically as above -He is going to be following with Dr. [facility] today, did not feel there was any acuity of significance as it r elates to the myelomabut does want to see him for expedited outpatient work-up/follow-up Fluid balance -While he is typically a volume overload concern, currently with the hypercalcemia and poor p.o. intake, I would view him as a bit on the "dry side" -Hold diuretics for now, continue to clinically follow volume status, as well as basic metabolic panel periodically; when clinically it appears, obviously diuretics may be resumed Weakness -PT/OT eval and treat Pending Studies at Discharge: Yes (a large portion of myeloma workup) Stand-Alone Forms: My [facility] Skilled Items Patient informed of condition?: Yes DNR: No Discharge Level of Care: Skilled Communicable Disease: No Discharge Prognosis: Stable Lines: None Urinary Catheter: No Medications and DC Order Prescriptions: New oseltamivir [Tamiflu] 30 mg capsule 30 mg PO DAILY 5 Days Qty: 7 RF: 0 Continued ipratropium-albuterol 0.5 mg-3 mg(2.5 mg base)/3 mL Solution For Nebulization 3 ml INHALATION Q4H PRN (Reason: Shortness Of Breath) Qty: 0 RF: 0 aspirin 81 mg Tablet,Delayed Release (Dr/Ec) 81 mg PO QAM Qty: 0 RF: 0 ferrous sulfate 325 mg (65 mg iron) Tablet 325 mg PO QAM Qty: 0 RF: 0 mupirocin 2 % ointment 1 applic TOP BID Qty: 30 RF: 1 travoprost 0.004 % drops 1 drp OPB HS RF: 0 fluticasone propionate [Flonase Allergy Relief] 50 mcg/actuation spray,suspension 2 spray INTRANASAL QAM Qty: 18.2 RF: 5 allopurinol 300 mg tablet 300 mg PO QAM Qty: 30 RF: 5 fluticasone propion-salmeterol [Wixela Inhub] 250-50 mcg/dose blister with device 1 inh inhalation BID RF: 0 vitamin B complex tablet 1 tab PO QAM RF: 0 simvastatin 10 mg tablet 10 mg PO HS RF: 0 pantoprazole [Protonix] 40 mg tablet,delayed release (DR/EC) 40 mg PO DAILYBB RF: 0 polyethylene glycol 3350 [Miralax] 17 gram powder in packet 17 g PO DAILY RF: 0 nitroglycerin [Nitrostat] 0.4 mg tablet, sublingual 0.4 mg Sublingual UD PRN (Reason: chest pain) RF: 0 guaifenesin [Mucus Relief ER] 600 mg tablet extended release 12hr 600 mg PO BID RF: 0 omega 5-avv-pei-fish oil [Fish Oil] 1,200 (144-216) mg Capsule 1,200 cap PO DAILY RF: 0 vitamin E 600 unit Capsule 600 unit PO DAILY RF: 0 cholecalciferol (vitamin D3) [Vitamin D3] 25 mcg (1,000 unit) Tablet 25 mcg PO DAILY RF: 0 ascorbic acid (vitamin C) [Vitamin C] 1,000 mg Tablet 1 g PO QAM RF: 0 zinc 50 mg Tablet 50 mg PO QAM RF: 0 metoprolol tartrate 25 mg tablet 12.5 - 25 mg PO DIRECTED RF: 0 escitalopram oxalate [Lexapro] 5 mg tablet 10 mg PO QDD RF: 0 acetaminophen [Tylenol] 325 mg Tablet 650 mg PO Q4 MDD 3g PRN (Reason: Fever Or Pain) RF: 0 docusate sodium 100 mg Capsule 100 mg PO BID Qty: 20 RF: 0 Eliquis 2.5 mg tablet 2.5 mg PO BID Qty: 60 RF: 1 Discontinued furosemide 40 mg tablet 40 mg PO BID RF: 0 spironolactone 25 mg tablet 12.5 - 25 mg PO BID RF: 0 potassium chloride 20 mEq tablet,ER particles/crystals 20 meq PO TID RF: 0 Discharge Orders: Discharge Order (Routine); Ordered 01/28/21 Ordered By: Jeremy Ayala Admission Data Admit Date/Time: 01/22/21 20:37 Attending Provider: Jeremy Ayala Admit Provider: Glo Parsons Primary Care Provider: Blake Stanton Other Providers: Glo Parsons ; Shanthi Benavides ; Saud [facility] ; Helen Resendez Other Interventions: Discharge Summary Assessment (RN) Last Done: 01/28/21 14:23 Coding Level of Care Code D/C DAY MANAGEMENT >30 MINS Diagnoses Weakness R53.1 Hypercalcemia E83.52 Chronic atrial fibrillation I48.20 CKD (chronic kidney disease), stage III N18.30 Hypertension I10 Hypertension type: essential hypertension Anemia D64.9 Depression F32.9 GERD (gastroesophageal reflux disease) K21.9 CAD (coronary artery disease) I25.10 Hyperlipidemia E78.2 Hyperlipidemia type: mixed hyperlipidemia COPD (chronic obstructive pulmonary disease) J44.9 COPD type: unspecified COPD Central sleep apnea G47.31
[2021-02-02 15:52] LABS: Beta-2-Microglobulin 11.55 mg/L (< OR = 2.51); Free Lambda 4.5 mg/L (5.7-26.3)
== END 2021-01-28 15:54 | DRG 840 ==
LOC: ED 15:49 → EDINP 20:37 → SUATTDRO 20:37 → 3N 22:54

== ENCOUNTER 2021-04-11 20:45 | Inpatient (IN) ==
[2021-04-11] MEDS ORDERED: SODIUM CHLORIDE 0.9% 1000ML 1,000 ML IV STA (21:00)
--- NOTE | 2021-04-11 21:03 | Emergency Department Note ---
Impression & Plan Multifocal pneumonia ADMIT ED Provider Note HPI: The patient is an 81-year-old gentleman with history of coronary artery disease, stage III chronic kidney disease, type 2 diabetes, presents the emergency department from home over concern for diarrhea and abdominal discomfort as well as generalized weakness and difficulty with ambulation. Patient has reportedly had the symptoms over about the past day and a half. On arrival here to the ED the patient is alert and oriented x3, he is noted to be a limited historian, he states he is not currently having much pain and he does not recall having any bad diarrhea. On arrival he is hemodynamically stable, he is in no acute distress on my initial assessment. He denies any chest pain or shortness of breath. ROS: -GI: Diarrhea, abdominal discomfort *10 point review systems was conducted and is otherwise negative unless stated above *Outpatient medications and allergy history reviewed PE: General: Alert, NAD HEENT: Normocephalic, atraumatic Eyes: Extraocular eye movement is intact, no scleral erythema Pulmonary: Clear to auscultation bilaterally, no wheezing Cardio: Regular rate and rhythm GI: Moderate distention, abdomen is soft, nontender : No suprapubic tenderness MSK: No evidence of trauma or malformation of the extremities, no edema Skin: No evidence of rash Neuro: Alert, no focal deficits Psychiatric: Cooperative Preliminary Findings Only See Final Report For Complete Findings CT ABDOMEN & PELVIS With Contrast: Right basilar airspace opacities are most consistent with multifocal pneumonia. There is a simple appearing 3 cm splenic cyst, no follow-up is needed. The re maining solid organs are within normal limits. Cholelithiasis. No bowel obstruction. Diverticulosis. Normal appendix. No fracture. Radiologist: Lalitha Peng MD environmental monitoring specialist: - An order was placed for continuous cardiac monitoring - Patient was noted to be in sinus rhythm with rate of 70 EKG: Rate: 72 Rhythm: Paced rhythm Intervals: Within normal limits ST changes: No ST elevation Time: 2118 Medical Decision Making: Patient presented to the emergency department from home, he has been there for approximately 1 week after being discharged from his rehabilitation facility. Patient's later arrived at the bedside and states that he has been very weak at home, they are having difficulty moving him to use the restroom, he has not been doing well over the past week since he was discharged from his rehabilitation facility. She states that she feels that he needs to be placed again and this was actually already arranged for him to be placed on Monday but she stated that she did not feel that they could wait that long given that he has had weakness and lethargy and inability to ambulate at home. That was the main reason for his presentation today. He has had some diarrhea at home as well, he has exhibited a harsh cough according to his . She is also had a cough. IV was established here in the ED, lab work obtained, patient is noted to have a leukocytosis with a left shift, CT imaging of the abdomen pelvis does not show any evidence of any acute surgical abnormality within the abdomen or pelvis, no evidence of diverticulitis, no colitis, there is evidence of what appears to be airspace opacities consistent with a multifocal pneumonia. Given the patient's leukocytosis, will draw blood cultures, patient will be started on broad- spectrum IV antibiotics. Patient's lab work is otherwise generally unremarkable, patient will require placement given his issues at home following my discussion with his , [facility] service was consulted for admission. COVID-19 test is pending at the time of admission. Diagnosis: 1. Healthcare associated pneumonia, multifocal pneumonia 2. Diarrhea 3. Weakness, inability to accomplish activities of daily living at home 4. Ambulatory dysfunction 5. Leukocytosis Disposition: Admission Rajinder Camilo DO Emergency Medicine Past Med/Surg History Medical History Acquired deviated nasal septum Acute exacerbation of chronic obstructive pulmonary disease Clinton's palsy CAD (coronary artery disease) Chronic acquired lymphedema Chronic diastolic (congestive) heart failure Chronic hypoxemic respiratory failure Chronic renal insufficiency CKD (chronic kidney disease), stage III Complex sleep apnea syndrome COPD (chronic obstructive pulmonary disease) Cor pulmonale Coronary artery disease Depression DM II (diabetes mellitus, type II), controlled Foot drop, right GERD (gastroesophageal reflux disease) Gout History of heart attack Hx of fracture of pelvis Hypercalcemia Hyperlipidemia Hypertension Hypoxia Monoclonal gammopathy of unknown significance Neuropathy SANDOR (obstructive sleep apnea) 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 Pneumonia Pneumonia Stage 3b chronic kidney disease Vitamin D deficiency Surgical History History of cataract surgery History of coronary artery stent placement (1999) History of coronary artery stent placement (2000) History of dental surgery History of right hip replacement (2016) History of tonsillectomy Hx of CABG (2011) S/P AV gerald ablation (04/12/17) S/P ORIF (open reduction internal fixation) fracture (2018) Status cardiac pacemaker (04/12/17) Family History Brother Coronary heart disease Brother Colorectal cancer Mother Myocardial infarction Father Myocardial infarction Social History Smoking Status: Former smoker Tobacco Type: Cigarettes Years Smoked: 30; Second Hand Exposure: No; Hx Alcohol Use: No Hx Substance Use: No Preferred Language: Urdu Communication Ability: Effective 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 Beliefs That Will Affect Care: None marital status: marital status details: 2 daughters Current Living Situation: Spouse Current Living Situation Comment: Lives with at [facility]; currently in SNF for rehab current occupational status: retired other: worked [employer] [facility] [employer] x 30 years previously Feels Safe at Home: Yes Assistive Devices: Denture - Upper, Denture - Lower, Glasses and Hearing Aid - Bilateral Allergies Allergies Allergy/AdvReac Type Severity Reaction Status Date / Time No Known Drug Allergies Allergy Unknown Unknown Verified 04/11/21 21:53 Home Meds Home Medications Medication Instructions Recorded Confirmed aspirin 81 mg tablet,delayed 81 mg PO QAM #0 11/04/16 04/11/21 release ipratropium 0.5 mg-albuterol 3 mg 3 ml INHALATION Q4H PRN #0 inh 11/04/16 04/11/21 (2.5 mg base)/3 mL nebulization soln ferrous sulfate 325 mg (65 mg 325 mg PO QAM #0 03/21/17 04/11/21 iron) tablet vitamin B complex 1 tab PO QAM 10/18/18 04/11/21 simvastatin 10 mg tablet 10 mg PO HS 11/26/19 04/11/21 ascorbic acid (vitamin C) 1,000 mg 1 g PO QAM 08/21/20 04/11/21 tablet (Vitamin C) metoprolol tartrate 25 mg tablet 12.5 - 25 mg PO DIRECTED 08/21/20 04/11/21 zinc 50 mg tablet 50 mg PO QAM 08/21/20 04/11/21 pantoprazole 40 mg tablet,delayed 40 mg PO DAILYBB 08/28/20 04/11/21 release (Protonix) acetaminophen 325 mg tablet 650 mg PO Q4 PRN MDD 3g 09/28/20 04/11/21 (Tylenol) escitalopram oxalate 5 mg tablet 10 mg PO QDD 09/28/20 04/11/21 (Lexapro) nitroglycerin 0.4 mg sublingual 0.4 mg SUBLINGUAL UD PRN 10/12/20 04/11/21 tablet (Nitrostat) cholecalciferol (vitamin D3) 25 25 mcg PO DAILY 01/22/21 04/11/21 mcg (1,000 unit) tablet (Vitamin D3) guaifenesin 600 mg tablet, 600 mg PO BID 01/22/21 04/11/21 extended release 12 hr (Mucus Relief ER) omega 2-fuv-txp-fish oil 1,200 mg 1,200 cap PO DAILY 01/22/21 04/11/21 (144 mg-216 mg) capsule (Fish Oil) vitamin E 600 unit capsule 600 unit PO DAILY 01/22/21 04/11/21 acyclovir 400 mg tablet 400 mg PO BID 04/11/21 04/11/21 dexamethasone 4 mg tablet 16 mg PO DAILY 04/11/21 04/11/21 fluticasone 500 mcg-salmeterol 50 1 inh INHALATION BID 04/11/21 04/11/21 mcg/dose blistr powdr for inhalation (Wixela Inhub) furosemide 40 mg tablet 20 - 40 mg PO DAILY 04/11/21 04/11/21 metolazone 5 mg tablet 5 mg PO Q OTHER DAY 04/11/21 04/11/21 mupirocin 2 % topical ointment 1 applic TOPICAL BID 04/11/21 04/11/21 potassium chloride 20 mEq 20 meq PO QID 04/11/21 04/11/21 tablet,extended release(part/cryst) propylene glycol 0.6 % eye drops 1 drp OPHTHALMIC (EYE) TID PRN 04/11/21 04/11/21 (Systane Complete) sennosides 8.6 mg-docusate sodium 1 tab-cap PO DAILY 04/11/21 04/11/21 50 mg tablet (Senexon-S) spironolactone 25 mg tablet 25 mg PO DAILY 04/11/21 04/11/21 tramadol 50 mg tablet 50 mg PO Q6H PRN 04/11/21 04/11/21 travoprost 0.004 % eye drops 1 drp OPHTHALMIC (EYE) HS 04/11/21 04/11/21 Previous Rx's Medication Instructions Recorded allopurinol 300 mg tablet 300 mg PO QAM #30 tab 06/30/20 fluticasone propionate 50 2 spray INTRANASAL QAM #18.2 ml 06/30/20 mcg/actuation nasal spray,suspension (Flonase Allergy Relief) apixaban 2.5 mg tablet (Eliquis) 2.5 mg PO BID #60 tab 10/02/20 Results & Data (ED) Vital Signs Vital Signs - 24 hr 04/11/21 20:29 04/11/21 20:48 04/11/21 21:00 Temperature 37 C Temperature Source Oral Pulse Rate 70 Pulse Rate [Left Finger] 70 Pulse Rhythm [Left Finger] Regular Respiratory Rate 20 20 Respiratory Effort / Characteristics Non-Labored Non-Labored Spontaneous Respiratory Depth Normal Blood Pressure 144/67 H Blood Pressure [Right Arm] 144/67 H Blood Pressure Mean 92 Blood Pressure Mean [Right Arm] 92 Blood Pressure Position [Right Arm] Lying Pulse Oximetry 92 93 94 Oxygen Delivery Method Room Air Room Air Room Air Sepsis Recent Fever Within 48 Hours No Sepsis New/Unexplained Change in Mental Status No Sepsis Action Taken by Nursing No Action Required 04/11/21 22:29 04/11/21 23:30 Temperature Temperature Source Pulse Rate Pulse Rate [Left Finger] 70 70 Pulse Rhythm [Left Finger] Regular Respiratory Rate 18 16 Respiratory Effort / Characteristics Non-Labored Respiratory Depth Normal Blood Pressure Blood Pressure [Right Arm] 137/69 137/71 Blood Pressure Mean Blood Pressure Mean [Right Arm] 91 93 Blood Pressure Position [Right Arm] Lying Pulse Oximetry 94 96 Oxygen Delivery Method Room Air Sepsis Recent Fever Within 48 Hours Sepsis New/Unexplained Change in Mental Status Sepsis Action Taken by Nursing Laboratory Data Result diagrams: 04/11/21 21:10 04/11/21 21:10 Lab Results 04/11/21 04/11/21 04/11/21 Range/Units 21:10 21:10 21:10 WBC 15.01 H (4.8-10.8) K/uL RBC 2.84 L (4.7-6.1) M/uL Hgb 8.7 L (14.0-18.0) g/dL Hct 27.3 L (42-52) % MCV 96.1 (80-100) fL MCH 30.6 (25-34) pg MCHC 31.9 L (32-36) g/dL RDW Std Deviation 62.4 H (36.4-46.3) fL RDW Coeff of Inez 18.0 H (11.5-14.5) % Plt Count 338 (130-400) K/uL MPV 10.9 H (7.4-10.4) fL Immature Gran % (Auto) 0.3 % Neut % (Auto) 89.1 % Lymph % (Auto) 5.3 % Isabela % (Auto) 5.1 % Eos % (Auto) 0.1 % Baso % (Auto) 0.1 % Neut # (Auto) 13.38 H (1.4-6.5) K/uL Lymph # (Auto) 0.79 L (1.2-3.4) K/uL Isabela # (Auto) 0.77 H (0.11-0.59) K/uL Eos # (Auto) 0.01 (0-0.5) K/uL Baso # (Auto) 0.02 (0-0.2) K/uL Immature Gran # (Auto) 0.04 H (0.00-0.02) K/uL Sodium 134 L (136-145) mmol/L Potassium 4.3 (3.5-5.1) mmol/L Chloride 98 (98-107) mmol/L Carbon Dioxide 26 (21-32) mmol/L Anion Gap 10 (3-11) BUN 27 H (6-23) mg/dl Creatinine 1.28 (0.6-1.4) mg/dl Est Cr Clr Drug Dosing 44.9 ml/min Est GFR ( Amer) 59.6 ml/min Est GFR (Non-Af Amer) 51.4 ml/min BUN/Creatinine Ratio 21.1 H (10-20) Glucose 112 H (70-99(Fasting)) mg/dl Lactate (0.4-2.0) mmol/L Calcium 9.9 (8.5-10.1) mg/dl Total Bilirubin 0.7 (0.2-1.0) mg/dl AST 8 L (13-39) U/L ALT 9 (7-52) U/L Alkaline Phosphatase 75 (34-104) U/L Troponin I 0.03 (0-0.04) ng/ml Total Protein 9.2 H (6.0-8.3) gm/dl Albumin 2.4 L (3.4-5.0) gm/dl Globulin 6.8 H (2.5-4.0) gm/dl Albumin/Globulin Ratio 0.4 L (0.9-2) Lipase 23 (11-82) U/L Procalcitonin 0.32 (0-0.5) ng/ml SARS-CoV-2, RNA, NAAT 04/11/21 04/11/21 Range/Units 23:26 23:27 WBC (4.8-10.8) K/uL RBC (4.7-6.1) M/uL Hgb (14.0-18.0) g/dL Hct (42-52) % MCV (80-100) fL MCH (25-34) pg MCHC (32-36) g/dL RDW Std Deviation (36.4-46.3) fL RDW Coeff of Inez (11.5-14.5) % Plt Count (130-400) K/uL MPV (7.4-10.4) fL Immature Gran % (Auto) % Neut % (Auto) % Lymph % (Auto) % Isabela % (Auto) % Eos % (Auto) % Baso % (Auto) % Neut # (Auto) (1.4-6.5) K/uL Lymph # (Auto) (1.2-3.4) K/uL Isabela # (Auto) (0.11-0.59) K/uL Eos # (Auto) (0-0.5) K/uL Baso # (Auto) (0-0.2) K/uL Immature Gran # (Auto) (0.00-0.02) K/uL Sodium (136-145) mmol/L Potassium (3.5-5.1) mmol/L Chloride (98-107) mmol/L Carbon Dioxide (21-32) mmol/L Anion Gap (3-11) BUN (6-23) mg/dl Creatinine (0.6-1.4) mg/dl Est Cr Clr Drug Dosing ml/min Est GFR ( Amer) ml/min Est GFR (Non-Af Amer) ml/min BUN/Creatinine Ratio (10-20) Glucose (70-99(Fasting)) mg/dl Lactate 0.9 (0.4-2.0) mmol/L Calcium (8.5-10.1) mg/dl Total Bilirubin (0.2-1.0) mg/dl AST (13-39) U/L ALT (7-52) U/L Alkaline Phosphatase (34-104) U/L Troponin I (0-0.04) ng/ml Total Protein (6.0-8.3) gm/dl Albumin (3.4-5.0) gm/dl Globulin (2.5-4.0) gm/dl Albumin/Globulin Ratio (0.9-2) Lipase (11-82) U/L Procalcitonin (0-0.5) ng/ml SARS-CoV-2, RNA, NAAT Cancelled Administered Medications Vancomycin HCl 1,750 mg/ (Sodium Chloride) 535 mls @ 200 mls/hr IV NOW ONE Stop: 04/12/21 01:32 Last Admin: 04/11/21 23:30 Dose: 200 mls/hr Documented by: [id number] Azithromycin 500 mg/ Dextrose 255 mls @ 125 mls/hr IV ONE ONE Stop: 04/12/21 00:54 Last Admin: 04/11/21 23:38 Dose: 125 mls/hr Documented by: [id number] Discontinued Medications Sodium Chloride (Nss 1000ml) 1,000 mls @ 999 mls/hr IV .Q1H1M STA Stop: 04/11/21 22:00 Last Admin: 04/11/21 21:25 Dose: 999 mls/hr Documented by: [id number] Piperacillin Sod/Tazobactam (Sod 3.375 gm/ Dextrose) 100 ml in 115 mls @ 230 mls/hr IV NOW STA Stop: 04/11/21 23:21 Last Admin: 04/11/21 23:37 Dose: 230 mls/hr Documented by: [id number] Ioversol (Optiray 320 100ml) 95 ml IV ONCE ONE Stop: 04/11/21 22:10 Last Admin: 04/11/21 22:10 Dose: 95 ml Documented by: [id number] Discharge Plan Visit Data Chief Complaint: Abdominal Pain ED Provider: Rajinder Camilo Discharge Problem: Multifocal pneumonia Forms Stand Alone Forms: [facility] Prescriptions Prescriptions: No Action ipratropium-albuterol 0.5 mg-3 mg(2.5 mg base)/3 mL Solution For Nebulization 3 ml INHALATION Q4H PRN (Reason: Shortness Of Breath) Qty: 0 RF: 0 aspirin 81 mg Tablet,Delayed Release (Dr/Ec) 81 mg PO QAM Qty: 0 RF: 0 ferrous sulfate 325 mg (65 mg iron) Tablet 325 mg PO QAM Qty: 0 RF: 0 fluticasone propionate [Flonase Allergy Relief] 50 mcg/actuation spray,suspension 2 spray INTRANASAL QAM Qty: 18.2 RF: 5 allopurinol 300 mg tablet 300 mg PO QAM Qty: 30 RF: 5 vitamin B complex tablet 1 tab PO QAM RF: 0 simvastatin 10 mg tablet 10 mg PO HS RF: 0 pantoprazole [Protonix] 40 mg tablet,delayed release (DR/EC) 40 mg PO DAILYBB RF: 0 nitroglycerin [Nitrostat] 0.4 mg tablet, sublingual 0.4 mg Sublingual UD PRN (Reason: chest pain) RF: 0 guaifenesin [Mucus Relief ER] 600 mg tablet extended release 12hr 600 mg PO BID RF: 0 omega 0-fhk-piq-fish oil [Fish Oil] 1,200 (144-216) mg Capsule 1,200 cap PO DAILY RF: 0 vitamin E 600 unit Capsule 600 unit PO DAILY RF: 0 cholecalciferol (vitamin D3) [Vitamin D3] 25 mcg (1,000 unit) Tablet 25 mcg PO DAILY RF: 0 furosemide 40 mg tablet 20 - 40 mg PO DAILY RF: 0 sennosides-docusate sodium [Senexon-S] 8.6-50 mg Tablet 1 tab-cap PO DAILY RF: 0 metolazone 5 mg Tablet 5 mg PO Q OTHER DAY RF: 0 travoprost 0.004 % drops 1 drp ophthalmic (eye) HS RF: 0 acyclovir 400 mg Tablet 400 mg PO BID RF: 0 tramadol 50 mg Tablet 50 mg PO Q6H PRN (Reason: Pain) RF: 0 spironolactone 25 mg Tablet 25 mg PO DAILY RF: 0 potassium chloride 20 mEq tablet,ER particles/crystals 20 meq PO QID RF: 0 dexamethasone 4 mg tablet 16 mg PO DAILY RF: 0 fluticasone propion-salmeterol [Wixela Inhub] 500-50 mcg/dose blister with device 1 inh INHALATION BID RF: 0 mupirocin 2 % ointment 1 applic TOPICAL BID RF: 0 Systane Complete 0.6 % Drops 1 drp OPHTHALMIC (EYE) TID PRN (Reason: Dry Eye(S)) RF: 0 ascorbic acid (vitamin C) [Vitamin C] 1,000 mg Tablet 1 g PO QAM RF: 0 zinc 50 mg Tablet 50 mg PO QAM RF: 0 metoprolol tartrate 25 mg tablet 12.5 - 25 mg PO DIRECTED RF: 0 escitalopram oxalate [Lexapro] 5 mg tablet 10 mg PO QDD RF: 0 acetaminophen [Tylenol] 325 mg Tablet 650 mg PO Q4 MDD 3g PRN (Reason: Fever Or Pain) RF: 0 Eliquis 2.5 mg tablet 2.5 mg PO BID Qty: 60 RF: 1 Referrals Referrals: Richa Rojas MD [Primary Care Provider] -
[2021-04-11 21:24] LABS: Basophils # (auto) 0.02 K/uL (0-0.2); Basophils % (auto) 0.1 %; Eosinophils # (auto) 0.01 K/uL (0-0.5); Eosinophils % (auto) 0.1 %; Hematocrit (blood only) 27.3 % (42-52); Hemoglobin 8.7 g/dL (14.0-18.0); Immature Granulocytes # (auto) 0.04 K/uL (0.00-0.02); Immature Granulocytes % (auto) 0.3 %; Lymphocytes # (auto) 0.79 K/uL (1.2-3.4); Lymphocytes % (auto) 5.3 %; Mean Corpuscular Hemoglobin 30.6 pg (25-34); Mean Corpuscular Hgb Conc 31.9 g/dL (32-36); Mean Corpuscular Volume 96.1 fL (80-100); Mean Platelet Volume 10.9 fL (7.4-10.4); Monocytes # (auto) 0.77 K/uL (0.11-0.59); Monocytes % (auto) 5.1 %; Neutrophils # (auto) 13.38 K/uL (1.4-6.5); Neutrophils % (auto) 89.1 %; Platelet Count 338 K/uL (130-400); RDW Standard Deviation 62.4 fL (36.4-46.3); Red Blood Count 2.84 M/uL (4.7-6.1); White Blood Count 15.01 K/uL (4.8-10.8)
[2021-04-11 21:45] LABS: Albumin Globulin Ratio 0.4 (0.9-2); Albumin Level 2.4 gm/dl (3.4-5.0); BUN Creatinine Ratio 21.1 (10-20); Bilirubin,Total 0.7 mg/dl (0.2-1.0); Calcium 9.9 mg/dl (8.5-10.1); Creatinine Clr Calc Pharmacy 44.9 ml/min; Est GFR (African American) 59.6 ml/min; Est GFR (Non-African American) 51.4 ml/min; Globulin 6.8 gm/dl (2.5-4.0); Potassium 4.3 mmol/L (3.5-5.1); Total Protein 9.2 gm/dl (6.0-8.3)
[2021-04-11 21:47] LABS: Troponin I 0.03 ng/ml (0-0.04)
[2021-04-11] MEDS ORDERED: OPTIRAY 320 100ml IV ONE ×2 (21:59→22:09)
[2021-04-11] MEDS ORDERED: PIPERACILLIN/TAZOBACTAM 3.375 GM in DEXTROSE 5% 100 ML/100 ML BAG IV STA (22:52)
[2021-04-11] MEDS ORDERED: VANCOMYCIN CONSULT ACTIVE PRN (22:52)
[2021-04-11] MEDS ORDERED: PIPERACILL/TAZOBAC CONSULT ACTIVE PRN (22:52)
[2021-04-11] MEDS ORDERED: VANCOMYCIN HCL 1,750 MG in SODIUM CHLORIDE 0.9% 500 ML IV ONE (22:52)
[2021-04-11] MEDS ORDERED: AZITHROMYCIN 500 MG in DEXTROSE 5% 250 ML IV ONE (22:52)
[2021-04-11 23:46] LABS: Appearance Urine Clear (Clear); Bacteria Urine Automated Negative (Negative); Bilirubin Urine Negative (Negative); Blood Urine Negative (Negative); Color Urine Yellow; Epithelial Cell Urine Auto >30 /lpf (0-5); Glucose Urine UA Negative (Negative); Ketones Urine Negative (Negative); Leukocyte Esterase Urine Negative (Negative); Nitrite Urine Negative (Negative); Protein Urine 1+ (Negative); RBC Urine Automated 0-4 /hpf (0-4); Specific Gravity Urine 1.025 (1.000-1.030); Urobilinogen Urine Negative (Negative)
[2021-04-12 02:27] LABS: Influenza A virus by PCR Negative (Neg); Influenza B virus by PCR Negative (Neg); RSV by PCR Negative (Neg); SARS CoV2 RNA(COVID-19) InHosp NEGATIVE (Negative)
--- NOTE | 2021-04-12 03:22 | History and Physical Report ---
DATE OF ADMISSION: 04/12/2021. CHIEF COMPLAINT: Weakness and abdominal pain. HISTORY OF PRESENT ILLNESS: This is an 81-year-old male with past medical history significant for type 2 diabetes, chronic kidney disease stage III, hyperlipidemia, chronic gout, history of severe COPD, sleep apnea, on CPAP, atrial fibrillation, diastolic CHF, complete heart block, status post pacemaker, hypertension, CAD s/p CABG, s/p stent placement, left ventricular hypertrophy, mitral valve regurgitation., history of GERD, vitamin B12 deficiency, morbid obesity, history of calculus of gallbladder, right footdrop, bilateral sensorineural hearing loss, primary open angle glaucoma bilateral, history of multiple myeloma, anemia of chronic kidney disease, history of tobacco abuse, anxiety, history of MRSA cultures positive, status post AV gerald ablation, generalized anxiety, depression, was brought in today because of feeling weak, tired, poor appetite and abdominal pain and diarrhea. The patient was in the hospital in January with weakness, thought to be multifactorial. At the time, he was also found to have hypercalcemia, and he was hydrated for hypercalcemia and he was discharged to [facility]. As per the , he was discharged from [facility] last Monday, he has been basically bedbound, with assistance, he can sit on the wheelchair or recliner. Today was feeling extremely weak, tired, not eating much, having occasional cough, occasional shortness of breath and he has diarrhea for last 2 days. This was the reason he was brought into the hospital. CT abdomen was okay, but showing multifocal pneumonia in lower lobes. He has elevated white count of 15,000. Urinalysis okay. Rapid COVID test is negative. Last admission for hypercalcemia, got IV fluids and zoledronic acid and was seen by Dr. Resendez and seems had bone marrow biopsy and skeletal survey done showing skeletal lesions in skull consistent with multiple myeloma. Seemed to be not started treatment yet. Today, his calcium levels are okay. The patient is a poor historian. The patient denies any chest pain, currently has no belly pain. Denies any headache Currently no nausea, micturating fine, resting comfortably, hemodynamically stable. All the history is got from the , the patient seems to be hard of hearing and seemed to be somewhat confused. ALLERGIES: No known drug allergies. PAST MEDICAL HISTORY: As mentioned above. PAST SURGICAL HISTORY: CABG, status post cardiac stent placement, right hip fracture repair, suture repair of entropion, right hip replacement. MEDICATIONS: The patient is on Tylenol 650 mg p.o. q. 4 hours p.r.n., acyclovir 400 mg p.o. b.i.d., allopurinol 300 mg p.o. a.m., vitamin C 1 gram p.o. a.m., aspirin 81 mg p.o. a.m., vitamin D 25 mcg p.o. daily, Eliquis 2.5 mg p.o. b.i.d., Lexapro 10 mg p.o. daily, ferrous sulfate 325 mg p.o. a.m. fluticasone/salmeterol 1 inhalation b.i.d., Flonase 2 sprays intranasally p.r.n., Lasix 40 mg daily currently,Mucinex 600 mg p.o. b.i.d., DuoNebs 3 mL inhalation q. 4 hours p.r.n., metolazone 5 mg p.o. 2 times a week, metoprolol tartrate 25 mg a.m. and 12.5 mg p.o. a.m., mupirocin topical b.i.d., nitroglycerin 0.4 mg sublingual p.r.n., omega fish oil 1200 mg p.o. daily, Protonix 40 mg p.o. daily, potassium chloride 20 mEq p.o. b.i.d., Systane propylene glycol drop ophthalmic t.i.d. p.r.n., Senokot-S 1 tablet p.o. daily, simvastatin 10 mg p.o. at bedtime, spironolactone 25 mg p.o. daily, tramadol 50 mg p.o. q. 6 hours p.r.n., travoprost 1 drop ophthalmic eye, vitamin B complex 1 tablet p.o. a.m., zinc 50 mg p.o. a.m., vitamin E 600 mg p.o. daily. FAMILY HISTORY: Significant for Brother has colon cancer and CAD, sleep apnea, lung disorder; father had ID. SOCIAL HISTORY: , lives with . Quit smoking in 1999, smoked half pack a day for 50 years. No alcohol. Currently no drug use. REVIEW OF SYSTEMS: As per HPI. Most of the history got from the , the patient is somewhat poor historian. PHYSICAL EXAMINATION: GENERAL: The patient is alert and awake, not in acute distress. VITAL SIGNS: Temperature 37, pulse 70, respiratory rate 16, blood pressure 137/71, oxygen 96% on room air. HEENT: Pupils equal, round and reactive to light. Oral mucosa moist. NECK: No JVD. No neck masses. CARDIOVASCULAR: S1 and S2 heard. Regular rate and rhythm. No murmur, no gallop. RESPIRATORY SYSTEM: Normal AP diameter, no accessory muscle use. Mild bibasilar crackles. No wheezing. ABDOMEN: Soft, bowel sounds present, nontender, no distention. CENTRAL NERVOUS SYSTEM: Alert and awake. Obeys simple commands. Speech is clear. The patient is hard of hearing. No facial droop. Moves extremities. EXTREMITIES: Bilateral lower extremity +2 edema present. No erythema seen. LABORATORY DATA: WBC 15, hemoglobin 8.7, hematocrit 27.3, platelets 338. Sodium 134, potassium 4.3, chloride 98, bicarbonate 26, BUN 27, creatinine 1.2, serum glucose 112. Lactate 0.9, calcium 9.9, total bilirubin 0.7, AST 8, ALT 9, alkaline phosphatase 75. Troponin I of 0.03. Lipase 23. Procalcitonin 0.32. Urinalysis greater than 30 epithelial cells, bacteria negative. Rapid COVID test negative. IMAGING DATA: Chest x-ray: Multifocal pneumonia. CT of abdomen and pelvis, preliminary report multifocal pneumonia, otherwise unremarkable study. EKG: Showing ventricular paced rhythm with occasional PVCs at a rate of 72. ASSESSMENT AND PLAN: This is an 81-year-old male who presents with feeling weak and fatigued and abdominal pain, diarrhea and found to have multifocal pneumonia. 1. Multifocal pneumonia: Seems to be with doxycycline at [facility] in mid March.. In the ER, received azithromycin, vancomycin and Zosyn. We will continue with Zosyn. Gentle fluids for 1 liter and we will also do the PCR test for flu, COVID, and RSV and influenza and follow the response. Checking MRSA screen. Monitor in the [employer]. 2. History of diastolic congestive heart failure: Continue spironolactone. Holding his Lasix and metolazone. Restart when able to, as the patient is having some ongoing infection.Monitor for volume overload.( Please confirm diuretic dosing with again). 3. History of coronary artery disease, status post coronary artery bypass graft, status post stent: Continue his aspirin, metoprolol, and statin. 4. History of atrial fibrillation: Rate controlled with metoprolol, on Eliquis. 5. Hyperlipidemia: On statin. 6. Chronic obstructive pulmonary disease: Continue his home fluticasone/salmeterol and placed on nebs round the clock and p.r.n. 7. History of sleep apnea: Continue CPAP at bedtime. 8. History of depression: Continue Lexapro. 9. History of gastroesophageal reflux disease: Continue Protonix. 10. History of anemia: We will follow labs. 11. Hypertension: Currently holding diuretics. Continue his home medication. We will follow the blood pressure. 12. Chronic kidney disease stage III: Continue gentle fluids and holding Lasix. We will follow the labs. 13. Recent diagnosis of multiple myeloma: Needs follow up with hematology/oncology. 14. Deep venous thrombosis prophylaxis: On Eliquis. DISPOSITION: Closely monitor in med tele. PT/OT prior to discharge. Social service to help with discharge planning. Level 1 full code as per discussion with only if there is chance of recovery. Job ID: [id number] [facility]
[2021-04-12] MEDS ORDERED: ONDANSETRON INJ 2 MG/ML 2 ML VIAL IV PRN (05:12)
[2021-04-12] MEDS ORDERED: SODIUM CHLORIDE 0.9% 1000ML 1,000 ML IV SCH (05:12)
[2021-04-12] MEDS ORDERED: ACETAMINOPHEN 325 MG TAB PO PRN ×2 (05:12)
[2021-04-12] MEDS ORDERED: traMADol HCL 50 MG TABLET PO PRN (05:12)
[2021-04-12] MEDS ORDERED: NITROGLYCERIN SL 0.4 MG/TAB TAB SL PRN ×2 (05:12)
[2021-04-12] MEDS ORDERED: LEVALBUTEROL HCL 1.25 MG/3 ML NEB NEB PRN (05:12)
[2021-04-12] MEDS ORDERED: ARTIFICIAL TEARS OP PRN (05:29)
[2021-04-12 05:57] LABS: Basophils # (auto) 0.01 K/uL (0-0.2); Basophils % (auto) 0.1 %; Eosinophils # (auto) 0.02 K/uL (0-0.5); Eosinophils % (auto) 0.2 %; Hematocrit (blood only) 24.9 % (42-52); Hemoglobin 8.3 g/dL (14.0-18.0); Immature Granulocytes # (auto) 0.03 K/uL (0.00-0.02); Immature Granulocytes % (auto) 0.3 %; Lymphocytes # (auto) 0.44 K/uL (1.2-3.4); Lymphocytes % (auto) 3.9 %; Mean Corpuscular Hemoglobin 31.3 pg (25-34); Mean Corpuscular Hgb Conc 33.3 g/dL (32-36); Monocytes # (auto) 0.52 K/uL (0.11-0.59); Monocytes % (auto) 4.6 %; Neutrophils # (auto) 10.19 K/uL (1.4-6.5); Neutrophils % (auto) 90.9 %; Platelet Count 290 K/uL (130-400); RDW Coefficient of Variation 17.8 % (11.5-14.5); RDW Standard Deviation 60.6 fL (36.4-46.3); Red Blood Count 2.65 M/uL (4.7-6.1); White Blood Count 11.21 K/uL (4.8-10.8)
[2021-04-12] MEDS: PIPERACILLIN/TAZOBACTAM 3.375 GM in DEXTROSE 5% 100 ML IV SCH ×3 (06:07→21:40)
[2021-04-12] MEDS: PANTOprazole 40 MG TAB PO SCH (06:09)
[2021-04-12 06:26] LABS: BUN Creatinine Ratio 21.8 (10-20); Calcium 8.7 mg/dl (8.5-10.1); Creatinine Clr Calc Pharmacy 52.4 ml/min; Est GFR (African American) 71.6 ml/min; Est GFR (Non-African American) 61.8 ml/min; Magnesium 1.3 mg/dl (1.7-2.4)
[2021-04-12] MEDS: LEVALBUTEROL 1.25MG/0.5ML NEB INH SCH ×3 (07:04→19:23)
[2021-04-12] MEDS: IPRATROPIUM BROMIDE NEB SOLN 0.02% 2.5 ML VIAL INH SCH ×3 (07:04→19:23)
--- NOTE | 2021-04-12 07:41 | XRay Report ---
XR chest 1V portable HISTORY: weakness COMPARISON: Chest 01/22/2021. FINDINGS: No pneumothorax. The heart is enlarged. There are trace bilateral pleural effusions. There are patchy bibasilar densities. Interstitial/vascular thickening persists. There are poststernotomy c hanges and left-sided pacemaker. IMPRESSION: 1. Cardiomegaly with mild congestive change and trace bilateral pleural effusions. 2. Patchy bibasilar densities are nonspecific and may represent atelectasis or pneumonia. ACT 112: Negative or not required by law. Electronically signed by: Chepe Vaughn M.D. 04/12/2021 7:40 AM
[2021-04-12] MEDS: MAGNESIUM SULFATE / D5W 1 GM/100 ML BAG IV SCH ×2 (08:07→09:56)
--- NOTE | 2021-04-12 08:07 | CT Scan Report ---
CT abd pelvis IV con only CLINICAL HISTORY: ABD pain, diarrhea TECHNIQUE: Helical axial images of the abdomen and pelvis were obtained and displayed. Automated dose lowering techniques and/or adjustment according to patient size were utilized for this exam. This e xam was performed with intravenous contrast. COMPARISON: None available at the time of this dictation. FINDINGS: Lower chest: Bibasilar atelectasis versus scarring is seen. Partial visualization of consolidative o pacities as well. Liver: Subcentimeter hypodensities in the liver are too small to characterize. Gallbladder and biliary tree: Layering radiodense material is seen in the dependent portion of the li jeremie representing sludge. No intra- or extrahepatic biliary ductal dilation. Pancreas: Unremarkable, no focal lesions. Spleen: A splenic cyst is noted in the inferior pole. Adrenals: Unremarkable. Kidneys and ureters: Subcentimeter hypodensities are too small to characterize. Nonobstructive nephro lithiasis is noted on the right. Bladder: Unremarkable. Reproductive organs: A calcified fibroid is incidentally noted. Bowel: Extensive diverticula are seen with minimal wall thickening and surrounding fat stranding. Lymph nodes Retroperitoneal: Unremarkable. Mesenteric: Unremarkable. Pelvic: Unremarkable. Peritoneum: Normal. Vessels: Atherosclerotic calcifications are seen. Abdominal wall: Unremarkable. Bones: Patient is status post surgical repair of right pelvic fracture and right total hip arthroplas ty. Degenerative changes are seen in the spine. IMPRESSION: Findings may represent mild diverticulitis. No evidence of perforation or abscess. ACT 112: Negative or not required by law. Electronically signed by: Milo Asher M.D. 04/12/2021 8:05 AM
[2021-04-12] MEDS: guaiFENesin 600 MG TABCR PO SCH ×2 (08:08→21:25)
[2021-04-12] MEDS: VITAMIN B COMPLEX TAB PO SCH (08:08)
[2021-04-12] MEDS: APIXABAN 2.5 MG TAB PO SCH ×2 (08:08→21:26)
[2021-04-12] MEDS: FERROUS SULFATE 325 MG TAB PO SCH (08:08)
[2021-04-12] MEDS: SPIRONOLACTONE 25 MG TAB PO SCH (08:08)
[2021-04-12] MEDS: POTASSIUM CHLORIDE CRTAB 20 MEQ TABCR PO SCH ×4 (08:08→21:26)
[2021-04-12] MEDS: ASPIRIN 81 MG ECTAB PO SCH (08:08)
[2021-04-12] MEDS: ZINC SULFATE 220 MG CAPSULE PO SCH (08:08)
[2021-04-12] MEDS: allopurinoL 300 MG TAB PO SCH (08:08)
[2021-04-12] MEDS: ASCORBIC ACID 500 MG TAB PO SCH (08:09)
[2021-04-12] MEDS: METOPROLOL TARTRATE 25 MG TAB PO SCH ×2 (08:09→21:26)
[2021-04-12] MEDS: TOCOPHERYL, DL-ALPHA 100 UNITS CAP PO SCH (08:09)
[2021-04-12] MEDS: ACYCLOVIR 400 MG TAB PO SCH ×2 (08:09→21:25)
[2021-04-12] MEDS: CHOLECALCIFEROL 1,000 UNITS 25 MCG TAB PO SCH (08:09)
[2021-04-12] MEDS: MUPIROCIN 2% OINT 22 GM TUBE TOP SCH ×2 (08:13→21:30)
[2021-04-12] MEDS: FLUTICASONE/VILANTEROL 100/25MCG 14 PUFFS/INHALER INH SCH (08:13)
[2021-04-12] MEDS: FLUTICASONE PROPIONATE NA SPR 16 GM BTL SCH (08:13)
[2021-04-12] MEDS ORDERED: XOPENEX/ATROVENT 1.25mg/0.5MG NEB COMBO NEB SCH (09:00)
[2021-04-12] MEDS ORDERED: VANCOMYCIN CONSULT ACTIVE PRN (09:30)
--- NOTE | 2021-04-12 15:09 | Pharmacy Report ---
Pharmacy Vanc AUC Short Note - Date of Service April 12, 2021 - Assessment & Plan Assessment * Mr Mane is an 81 year old M receiving Vancomycin/Zosyn for treatment of pneumonia. * Pertinent microbiologic data includes: Positive MRSA Nasal Swab, blood cultures pending * PMH includes: type 2 DM, CKD III, chronic gout, severe COPD, sleep apnea on CPAP, CHF, heart block s/p pacemaker, CAD s/p CABG/stent, glaucoma, hx multiple myeloma, hx smoking, hx MRSA, hospitalized in 01/2021 with [facility] admission after (discharged last week) Plan Vancomycin * AUC/MIGUELANGEL is the preferred PK/PD target for vancomycin * AUC guided dosing is effective and associated with decreased risk of nephrotoxicity compared to traditional trough targets * Vancomycin 1750mg IV x1, then * Vanc 1500mg IV q24h * This regimen is predicted to correspond with a tough level of 16.4 mcg/mL, and is predicted to achieve target AUC/MIGUELANGEL of 400-600 mg/L.hr. It may be associated with a 12% risk of nephrotoxicity * Will order a trough level close to steady state. Zosyn 3.375gm IV x1 dose, then Zosyn 3.375gm IV q8h Pharmacy will continue to follow and will adjust dose/frequency as necessary. Thank you.
[2021-04-12] MEDS: VANCOMYCIN HCL 1,500 MG in SODIUM CHLORIDE 0.9% 500 ML IV SCH (15:15)
[2021-04-12] MEDS: ESCITALOPRAM OXALATE 10 MG TAB PO SCH (16:30)
--- NOTE | 2021-04-12 16:59 | Hospitalist Progress Note ---
Date of Service April 12, 2021 Assessment & Plan (1) Acute diverticulitis: (2) Multifocal pneumonia: (3) Gram-positive cocci bacteremia: (4) Multiple myeloma: (5) Chronic diastolic (congestive) heart failure: (6) CKD (chronic kidney disease), stage III: (7) COPD (chronic obstructive pulmonary disease): (8) Chronic atrial fibrillation: Plan: 81-year-old male with multiple comorbidities including diastolic CHF, CAD, COPD, SANDOR on CPAP, compatible status post pacer, CAD status post CABG, diabetes who was recently discharged from [facility] last Monday a week ago presented to ED yesterday feeling weak, fatigue, abdominal pain, diarrhea and some shortness of breath and cough for 2 days. He was in doing fine for a week since discharge until 2 days ago. 1. Gram-positive cocci bacteremia-blood culture on admission showing gram- positive cocci. Continue vancomycin pending further speciation. Repeat blood cultures. If true bacteremia, will need echo and ID consult 2. Acute mild diverticulitis-seen on CT. On Zosyn. Send stool for C. diffici le if patient has more diarrhea. 3. Multifocal pneumonia- Increased cough for past 2 days along with some shortness of breath yesterday. states he is prone to pneumonia and had multiple episodes. chest x-ray and CT reviewed, ?residual from recent pneumonia vs new one. MRSA nare positive. Patient was recently treated with doxycycline for pneumonia at SNF. Continue Vanco Zosyn for now. Will deescalate accordingly. 4. Chronic diastolic CHF-continue home diuretics. Monitor volume status closely. Daily weight, strict I and O's. Patient was recently seen by cardiology 2 weeks back and Lasix was increased to 40 mg daily however had been giving 80 mg daily at home since he came home, along with metolazone 5 mg twice weekly and aldactone 12.5 mg daily. 5. CAD status post CABG and stenting-stable, no chest pain, on aspirin, beta- gonsalo, statin 6. Chronic atrial fibrillation status post AV gerald ablation and biventricular pacemaker april 2017- rate controlled on metoprolol, on Eliquis 7. Hypomagnesemia-repleted, recheck in a.m. 8. Multiple myeloma- states he refused further treatment for his myeloma. 9. SANDOR on BiPAP DVT ppx- eliquis Updated over the phone Dispo- Not medically stable, blood clx positive currently, on iv antibiotics for same and for PNA and diverticulitis. Needs PT OT eval and likely rehab prior to discharge home. Admission and Anticipated Discharge Date Admission Date: April 12, 2021 Subjective Elderly male, sitting in chair. Awake, alert, oriented to self, answering simple questions. Poor historian. Abdominal pain is improved. No fever. No nausea or vomiting. Physical Exam Physical Exam: General: Sitting comfortably in chair, not in acute distress, on room air HEENT: EOMI, MECHE, MMM Chest: Decreased breath sounds bilaterally due to poor effort CVS: Regular rate and rhythm, normal heart sounds, no murmur Abdomen: Soft, non tender, not distended, normal bowel sounds Neuro: Awake, alert, oriented to self, answers simple questions Extremities: No cyanosis, clubbing, 1+ edema Results & Data Results & Data ([facility]) Vital Signs (Past 12 Hours) Vital Signs Temp Pulse Resp BP Pulse Ox 04/12/21 15:44 36.8 C 68 18 133/72 95 04/12/21 13:00 67 18 95 04/12/21 11:13 36.7 C 82 18 132/69 94 04/12/21 07:37 36.4 C L 70 20 158/66 H 96 04/12/21 07:05 78 18 94 04/12/21 05:13 37 C 71 20 151/70 H 92 Laboratory Results Short CBC 04/11/21 04/12/21 Range/Units 21:10 05:32 WBC 15.01 H 11.21 H (4.8-10.8) K/uL Hgb 8.7 L 8.3 L (14.0-18.0) g/dL Hct 27.3 L 24.9 L (42-52) % Plt Count 338 290 (130-400) K/uL BMP 04/11/21 04/12/21 21:10 05:32 Sodium 134 L 134 L Potassium 4.3 4.0 Chloride 98 100 Carbon Dioxide 26 25 BUN 27 H 24 H Creatinine 1.28 1.10 Glucose 112 H 97 Calcium 9.9 8.7 Cardiac Enzymes 04/11/21 Range/Units 21:10 Troponin I 0.03 (0-0.04) ng/ml Liver Function 04/11/21 Range/Units 21:10 Total Bilirubin 0.7 (0.2-1.0) mg/dl AST 8 L (13-39) U/L ALT 9 (7-52) U/L Alkaline Phosphatase 75 (34-104) U/L Albumin 2.4 L (3.4-5.0) gm/dl Urine 04/11/21 Range/Units 23:26 Urine Color Yellow Urine Appearance Clear (Clear) Urine pH 5.0 (4.5-7.5) Ur Specific [place] 1.025 (1.000-1.030) Urine Protein 1+ H (Negative) Urine Glucose (UA) Negative (Negative) Diagnostic Findings Abdomen/Pelvis CT 04/11/21 21:00 CT abd pelvis IV con only CLINICAL HISTORY: ABD pain, diarrhea TECHNIQUE: Helical axial images of the abdomen and pelvis were obtained and displayed. Automated dose lowering techniques and/or adjustment according to patient size were utilized for this exam. This exam was performed with intravenous contrast. COMPARISON: None available at the time of this dictation. FINDINGS: Lower chest: Bibasilar atelectasis versus scarring is seen. Partial visualization of consolidative opacities as well. Liver: Subcentimeter hypodensities in the liver are too small to characterize. Gallbladder and biliary tree: Layering radiodense material is seen in the dependent portion of the likely representing sludge. No intra- or extrahepatic biliary ductal dilation. Pancreas: Unremarkable, no focal lesions. Spleen: A splenic cyst is noted in the inferior pole. Adrenals: Unremarkable. Kidneys and ureters: Subcentimeter hypodensities are too small to characterize. Nonobstructive nephrolithiasis is noted on the right. Bladder: Unremarkable. Reproductive organs: A calcified fibroid is incidentally noted. Bowel: Extensive diverticula are seen with minimal wall thickening and surrounding fat stranding. Lymph nodes Retroperitoneal: Unremarkable. Mesenteric: Unremarkable. Pelvic: Unremarkable. Peritoneum: Normal. Vessels: Atherosclerotic calcifications are seen. Abdominal wall: Unremarkable. Bones: Patient is status post surgical repair of right pelvic fracture and right total hip arthroplasty. Degenerative changes are seen in the spine. IMPRESSION: Findings may represent mild diverticulitis. No evidence of perforation or abscess. ACT 112: Negative or not required by law. Electronically signed by: Milo Asher M.D. 04/12/2021 8:05 AM Chest X-Ray 04/11/21 22:34 XR chest 1V portable HISTORY: weakness COMPARISON: Chest 01/22/2021. FINDINGS: No pneumothorax. The heart is enlarged. There are trace bilateral pleural effusions. There are patchy bibasilar densities. Interstitial/vascular thickening persists. There are poststernotomy changes and left-sided pacemaker. IMPRESSION: 1. Cardiomegaly with mild congestive change and trace bilateral pleural effusions. 2. Patchy bibasilar densities are nonspecific and may represent atelectasis or pneumonia. ACT 112: Negative or not required by law. Electronically signed by: Chepe Vaughn M.D. 04/12/2021 7:40 AM Medications Administered Current Inpatient Medications Acetaminophen (Acetaminophen 325 Mg Tab) 650 mg PO Q4H PRN PRN Reason: Pain or Fever Stop: 05/12/21 05:11 Acyclovir (Acyclovir 400 Mg Tab) 400 mg PO BID [facility] Stop: 05/12/21 08:59 Last Admin: 04/12/21 08:09 Dose: 400 mg Documented by: Allopurinol (Allopurinol 300 Mg Tab) 300 mg PO QAM [facility] Stop: 05/12/21 08:59 Last Admin: 04/12/21 08:08 Dose: 300 mg Documented by: Apixaban (Apixaban 2.5 Mg Tab) 2.5 mg PO BID [facility] Stop: 05/12/21 08:59 Last Admin: 04/12/21 08:08 Dose: 2.5 mg Documented by: Artificial Tears (Artificial Tears) 1 drops OP TID PRN PRN Reason: Dry Eye(S) Stop: 05/12/21 05:28 Ascorbic Acid (Ascorbic Acid 500 Mg Tab) 1,000 mg PO QAM [facility] Stop: 05/12/21 08:59 Last Admin: 04/12/21 08:09 Dose: 1,000 mg Documented by: Aspirin (Aspirin 81 Mg Ectab) 81 mg PO QAM [facility] Stop: 05/12/21 08:59 Last Admin: 04/12/21 08:08 Dose: 81 mg Documented by: Escitalopram Oxalate (Escitalopram Oxalate 10 Mg Tab) 10 mg PO QDD [facility] Stop: 05/12/21 16:29 Last Admin: 04/12/21 16:30 Dose: 10 mg Documented by: Ferrous Sulfate (Ferrous Sulfate 325 Mg Tab) 325 mg PO QAM [facility] Stop: 05/12/21 08:59 Last Admin: 04/12/21 08:08 Dose: 325 mg Documented by: Fluticasone Propionate (Fluticasone Propionate Na Spr 16 Gm Btl) 2 sprays NA QAM [facility] Stop: 05/12/21 08:59 Last Admin: 04/12/21 08:13 Dose: 2 sprays Documented by: Fluticasone/Vilanterol (Fluticasone/Vilanterol 100/25mcg 14 Puffs/Inhaler) 1 puffs INH DAILY JAQUELNIE Stop: 05/12/21 08:59 Last Admin: 04/12/21 08:13 Dose: 1 puffs Documented by: Guaifenesin (Guaifenesin 600 Mg Tabcr) 600 mg PO BID [facility] Stop: 05/12/21 08:59 Last Admin: 04/12/21 08:08 Dose: 600 mg Documented by: Sodium Chloride (Nss 1000ml) 1,000 mls @ 75 mls/hr IV .[id number] [facility]QUELINE Stop: 04/12/21 18:31 Last Infusion: 04/12/21 16:45 Dose: 0 mls/hr Documented by: Piperacillin Sod/Tazobactam (Sod 3.375 gm/ Dextrose) 115 mls @ 28.75 mls/hr IV Q8H JAQUELINE; Protocol Stop: 04/19/21 05:59 Last Infusion: 04/12/21 16:45 Dose: 0 mls/hr Documented by: Vancomycin HCl 1,500 mg/ (Sodium Chloride) 530 mls @ 200 mls/hr IV Q24H JAQUELINE; Protocol Stop: 04/19/21 13:59 Last Infusion: 04/12/21 16:45 Dose: 0 mls/hr Documented by: Ipratropium [place] (Ipratropium [place] Neb Soln 0.02% 2.5 Ml Vial) 0.5 mg INH TIDR JAQUELINE Stop: 05/12/21 06:59 Last Admin: 04/12/21 13:00 Dose: 0.5 mg Documented by: Levalbuterol HCl (Levalbuterol 1.25mg/0.5ml Neb) 1.25 mg INH TIDR JAQUELINE Stop: 05/12/21 06:59 Last Admin: 04/12/21 13:00 Dose: 1.25 mg Documented by: Levalbuterol HCl (Levalbuterol Hcl 1.25 Mg/3 Ml Neb) 1.25 mg NEB Q4H PRN; Protocol PRN Reason: Shortness Of Breath Or Wheezing Stop: 05/12/21 05:11 Metoprolol Tartrate (Metoprolol Tartrate 25 Mg Tab) 25 mg PO QAM [facility] Stop: 05/12/21 08:59 Last Admin: 04/12/21 08:09 Dose: 25 mg Documented by: Metoprolol Tartrate (Metoprolol Tartrate 25 Mg Tab) 12.5 mg PO PM JAQUELINE Stop: 05/12/21 20:59 Miscellaneous Information (Piperacill/Tazobac Consult Active) 1 ea N/A UD PRN PRN Reason: Consult Stop: 05/11/21 22:51 Miscellaneous Information (Vancomycin Consult Active) 1 ea N/A UD PRN PRN Reason: Consult Stop: 05/12/21 09:29 Mupirocin (Mupirocin 2% Oint 22 Gm Tube) 1 appln TOP BID [facility] Stop: 05/12/21 08:59 Last Admin: 04/12/21 08:13 Dose: 1 appln Documented by: Nitroglycerin (Nitroglycerin Sl 0.4 Mg/Tab Tab) 0.4 mg SL UD PRN PRN Reason: Chest Pain Stop: 05/12/21 05:11 Ondansetron HCl (Ondansetron Inj 2 Mg/Ml 2 Ml Vial) 4 mg IV Q6H PRN PRN Reason: Nausea Stop: 05/12/21 05:11 Pantoprazole Sodium (Pantoprazole 40 Mg Tab) 40 mg PO DAILYBB [facility] Stop: 05/12/21 06:29 Last Admin: 04/12/21 06:09 Dose: 40 mg Documented by: Potassium Chloride (Potassium Chloride Crtab 20 Meq Tabcr) 20 meq PO QID JAQUELINE Stop: 05/12/21 08:59 Last Admin: 04/12/21 16:27 Dose: 20 meq Documented by: Saccharomyces Boulardii (Saccharomyces Boulardii 250 Mg Cap) 250 mg PO BID [facility] Stop: 05/12/21 20:59 Simvastatin (Simvastatin 10 Mg Tab) 10 mg PO HS [facility] Stop: 05/12/21 20:59 Spironolactone (Spironolactone 25 Mg Tab) 25 mg PO DAILY JAQUELINE Stop: 05/12/21 08:59 Last Admin: 04/12/21 08:08 Dose: 25 mg Documented by: Tramadol HCl (Tramadol Hcl 50 Mg Tablet) 50 mg PO Q6H PRN PRN Reason: Pain Stop: 05/12/21 05:11 Travoprost (Travoprost Z 0.004% Oph Soln 2.5 Ml Btl) 1 drops OP HS JAQUELINE Stop: 05/12/21 20:59 Vitamin B Complex (Vitamin B Complex Tab) 1 tab PO QAM [facility] Stop: 05/12/21 08:59 Last Admin: 04/12/21 08:08 Dose: 1 tab Documented by: Vitamin D (Cholecalciferol 1,000 Units 25 Mcg Tab) 1,000 units PO DAILY JAQUELINE Stop: 05/12/21 08:59 Last Admin: 04/12/21 08:09 Dose: 1,000 units Documented by: Vitamin E (Tocopheryl, Dl-Alpha 100 Units Cap) 100 units PO DAILY JAQUELINE Stop: 05/12/21 08:59 Last Admin: 04/12/21 08:09 Dose: 100 units Documented by: Zinc Sulfate (Zinc Sulfate 220 Mg Capsule) 220 mg PO QAM [facility] Stop: 05/12/21 08:59 Last Admin: 04/12/21 08:08 Dose: 220 mg Documented by: (1) COPD (chronic obstructive pulmonary disease) COPD type: unspecified COPD Qualified Code(s): J44.9 - Chronic obstructive pulmonary disease, unspecified
[2021-04-12] MEDS: SIMVASTATIN 10 MG TAB PO SCH (21:26)
[2021-04-12] MEDS: SACCHAROMYCES BOULARDII 250 MG CAP PO SCH (21:26)
[2021-04-12] MEDS: TRAVOPROST Z 0.004% OPH SOLN 2.5 ML BTL OP SCH (21:28)
--- NOTE | 2021-04-12 22:27 | Electrocardiogram Report ---
Test Reason : Blood Pressure : / mmHG Vent. Rate : 072 BPM Atrial Rate : 068 BPM P-R Int : 000 ms QRS Dur : 130 ms QT Int : 412 ms P-R-T Axes : 000 -37 092 degrees QTc Int : 451 ms Ventricular-paced rhythm with occasional Premature ventricular complexes Abnormal ECG When compared with ECG of 22-JAN-2021 16:51, Premature ventricular complexes are now Present Vent. rate has increased BY 3 BPM Confirmed by Ranjeet Stoll ([id number]) on 04/12/2021 10:26:31 PM Referred By: REFERRED SELF Confirmed By:Ranjeet Stoll
[2021-04-13] MEDS: PIPERACILLIN/TAZOBACTAM 3.375 GM in DEXTROSE 5% 100 ML IV SCH ×3 (05:50→22:13)
[2021-04-13] MEDS: PANTOprazole 40 MG TAB PO SCH (05:50)
[2021-04-13] MEDS: IPRATROPIUM BROMIDE NEB SOLN 0.02% 2.5 ML VIAL INH SCH ×3 (07:21→19:36)
[2021-04-13] MEDS: LEVALBUTEROL 1.25MG/0.5ML NEB INH SCH ×3 (07:21→19:36)
[2021-04-13 09:12] LABS: BUN Creatinine Ratio 20.9 (10-20); Calcium 8.6 mg/dl (8.5-10.1); Creatinine Clr Calc Pharmacy 63.3 ml/min; Est GFR (Non-African American) 77.7 ml/min; Magnesium 1.7 mg/dl (1.7-2.4); Phosphorus 2.8 mg/dl (2.5-4.9)
[2021-04-13] MEDS: METOPROLOL TARTRATE 25 MG TAB PO SCH ×2 (09:15→21:20)
[2021-04-13] MEDS: FERROUS SULFATE 325 MG TAB PO SCH (09:15)
[2021-04-13] MEDS: ASCORBIC ACID 500 MG TAB PO SCH (09:15)
[2021-04-13] MEDS: ZINC SULFATE 220 MG CAPSULE PO SCH (09:15)
[2021-04-13] MEDS: VITAMIN B COMPLEX TAB PO SCH (09:15)
[2021-04-13] MEDS: TOCOPHERYL, DL-ALPHA 100 UNITS CAP PO SCH (09:15)
[2021-04-13] MEDS: SACCHAROMYCES BOULARDII 250 MG CAP PO SCH ×2 (09:16→21:19)
[2021-04-13] MEDS: SPIRONOLACTONE 25 MG TAB PO SCH (09:16)
[2021-04-13] MEDS: CHOLECALCIFEROL 1,000 UNITS 25 MCG TAB PO SCH (09:16)
[2021-04-13] MEDS: ASPIRIN 81 MG ECTAB PO SCH (09:16)
[2021-04-13] MEDS: POTASSIUM CHLORIDE CRTAB 20 MEQ TABCR PO SCH ×4 (09:16→21:20)
[2021-04-13] MEDS: allopurinoL 300 MG TAB PO SCH (09:16)
[2021-04-13] MEDS: guaiFENesin 600 MG TABCR PO SCH ×2 (09:17→21:21)
[2021-04-13] MEDS: ACYCLOVIR 400 MG TAB PO SCH ×2 (09:17→21:22)
[2021-04-13] MEDS: FUROSEMIDE 40 MG TAB PO SCH (09:17)
[2021-04-13] MEDS: FLUTICASONE PROPIONATE NA SPR 16 GM BTL SCH (09:17)
[2021-04-13] MEDS: APIXABAN 2.5 MG TAB PO SCH ×2 (09:17→21:21)
[2021-04-13] MEDS: MUPIROCIN 2% OINT 22 GM TUBE TOP SCH ×2 (09:17→21:22)
[2021-04-13] MEDS: FLUTICASONE/VILANTEROL 100/25MCG 14 PUFFS/INHALER INH SCH (09:18)
[2021-04-13 09:21] LABS: Hematocrit (blood only) 24.1 % (42-52); Hemoglobin 7.7 g/dL (14.0-18.0); Mean Corpuscular Volume 93.8 fL (80-100); Mean Platelet Volume 10.7 fL (7.4-10.4); Platelet Count 248 K/uL (130-400); RDW Coefficient of Variation 17.6 % (11.5-14.5); RDW Standard Deviation 60.3 fL (36.4-46.3); Red Blood Count 2.57 M/uL (4.7-6.1)
[2021-04-13 09:28] LABS: Eosinophils # (auto) 0.06 K/uL (0-0.5); Eosinophils % (auto) 0.7 %; Immature Granulocytes # (auto) 0.03 K/uL (0.00-0.02); Immature Granulocytes % (auto) 0.4 %; Lymphocytes # (auto) 0.22 K/uL (1.2-3.4); Lymphocytes % (auto) 2.7 %; Monocytes # (auto) 0.49 K/uL (0.11-0.59); Neutrophils % (auto) 90.2 %; Rouleaux 1+
[2021-04-13] MEDS: VANCOMYCIN HCL 1,500 MG in SODIUM CHLORIDE 0.9% 500 ML IV SCH (13:36)
[2021-04-13] MEDS ORDERED: FUROSEMIDE 40 MG/4 ML VIAL IV ONE (15:25)
--- NOTE | 2021-04-13 15:25 | Hospitalist Progress Note ---
Date of Service April 13, 2021 Assessment & Plan (1) Acute diverticulitis: (2) Multifocal pneumonia: (3) Gram-positive cocci bacteremia: (4) Multiple myeloma: (5) Chronic diastolic (congestive) heart failure: (6) CKD (chronic kidney disease), stage III: (7) COPD (chronic obstructive pulmonary disease): (8) Chronic atrial fibrillation: Plan: 81-year-old male with multiple comorbidities including diastolic CHF, CAD, COPD, SANDOR on CPAP, compatible status post pacer, CAD status post CABG, diabetes who was recently discharged from [facility] last Monday a week ago presented to ED yesterday feeling weak, fatigue, abdominal pain, diarrhea and some shortness of breath and cough for 2 days. He was in doing fine for a week since discharge until 2 days ago. 1. Gram-positive cocci bacteremia- blood culture on admission CONS /, probably contamination. Repeat blood culture pending. On vanc pending final results. 2. Acute mild diverticulitis-seen on CT. On Zosyn. Send stool for C. difficile if patient has more diarrhea. No BM since admission. Tolerating diet well. Pain controlled. 3. Multifocal pneumonia- Increased cough for past 2 days along with some shortness of breath. states he is prone to pneumonia and had multiple episodes. chest x-ray and CT reviewed, ?residual from recent pneumonia vs new one. MRSA nare positive. Patient was recently treated with doxycycline for pneumonia at SNF. Continue Vanco Zosyn for now. Can deescalate to Augmentin/doxy at discharge which will also cover diverticulitis. leucocytosis resolved with antibiotics. 4. Acute on chronic diastolic CHF- has increased leg edema with crackles on lung auscultation. BNP 866. will give additional dose of iv lasix today. Monitor volume status closely. Daily weight, strict I and O's. Patient was recently seen by cardiology 2 weeks back and Lasix was increased to 40 mg daily however had been giving 80 mg daily at home since he came home, along with metolazone 5 mg twice weekly and aldactone 12.5 mg daily. 5. CAD status post CABG and stenting-stable, no chest pain, on aspirin, beta- gonsalo, statin 6. Chronic atrial fibrillation status post AV gerald ablation and biventricular pacemaker april 2017- rate controlled on metoprolol, on Eliquis 7. Hypomagnesemia-resolved with repletion. 8. Multiple myeloma- states he refused further treatment for his myeloma. 9. SANDOR on BiPAP DVT ppx- eliquis Updated over the phone Dispo- Not medically stable, blood clx positive currently, on iv antibiotics for same and for PNA and diverticulitis. Needs PT OT eval and likely rehab prior to discharge home. Admission and Anticipated Discharge Date Admission Date: April 12, 2021 Subjective Elderly male, sitting in chair. Awake, alert, oriented to self, answering simple questions. Poor historian. Abdominal pain is improved. No fever. No nausea or vomiting. Physical Exam Physical Exam: General: Sitting comfortably in chair, not in acute distress, on room air HEENT: EOMI, MECHE, MMM Chest: Decreased breath sounds bilaterally with some crackles CVS: Regular rate and rhythm, normal heart sounds, no murmur Abdomen: Soft, non tender, not distended, normal bowel sounds Neuro: Awake, alert, oriented to self, answers simple questions Extremities: No cyanosis, clubbing, 2+ edema Results & Data Results & Data ([facility]) Vital Signs (Past 12 Hours) Vital Signs Temp Pulse Resp BP Pulse Ox 04/13/21 13:22 70 21 04/13/21 11:20 36.5 C 70 18 128/66 95 04/13/21 07:23 71 26 H 97 04/13/21 06:54 36.8 C 71 20 143/75 H 94 04/13/21 03:58 36.6 C 69 18 144/80 H 94 Laboratory Results Short CBC 04/13/21 Range/Units 08:28 WBC 8.20 (4.8-10.8) K/uL Hgb 7.7 L (14.0-18.0) g/dL Hct 24.1 L (42-52) % Plt Count 248 (130-400) K/uL BMP 04/13/21 08:28 Sodium 133 L Potassium 4.0 Chloride 100 Carbon Dioxide 25 BUN 19 Creatinine 0.91 Glucose 93 Calcium 8.6 Medications Administered Current Inpatient Medications Acetaminophen (Acetaminophen 325 Mg Tab) 650 mg PO Q4H PRN PRN Reason: Pain or Fever Stop: 05/12/21 05:11 Acyclovir (Acyclovir 400 Mg Tab) 400 mg PO BID [facility] Stop: 05/12/21 08:59 Last Admin: 04/13/21 09:17 Dose: 400 mg Documented by: Allopurinol (Allopurinol 300 Mg Tab) [facility] Stop[facility] 05/12/21 08:59 Last Admin: 04/13/21 09:16 Dose: 300 mg Documented by: Apixaban (Apixaban 2.5 Mg Tab) 2.5 mg PO BID [facility] Stop: 05/12/21 08:59 Last Admin: 04/13/21 09:17 Dose: 2.5 mg Documented by: Artificial Tears (Artificial Tears) 1 drops OP TID PRN PRN Reason: Dry Eye(S) Stop: 05/12/21 05:28 Ascorbic Acid (Ascorbic Acid 500 Mg Tab) 1,000 mg PO [facility] Stop: 05/12/21 08:59 Last Admin: 04/13/21 09:15 Dose: 1,000 mg Documented by: Aspirin (Aspirin 81 Mg Ectab) [facility] Stop: 05/12/21 08:59 Last Admin: 04/13/21 09:16 Dose: 81 mg Documented by: Escitalopram Oxalate (Escitalopram Oxalate 10 Mg Tab) 10 mg PO QDD [facility] Stop: 05/12/21 16:29 Last Admin: 04/12/21 16:30 Dose: 10 mg Documented by: Ferrous Sulfate (Ferrous Sulfate 325 Mg Tab) 325 [facility] Stop: 05/12/21 08:59 Last Admin: 04/13/21 09:15 Dose: 325 mg Documented by: Fluticasone Propionate (Fluticasone Propionate Na Spr 16 Gm Btl) 2 sprays NA [facility] Stop: 05/12/21 08:59 Last Admin: 04/13/21 09:17 Dose: 2 sprays Documented by: Fluticasone/Vilanterol (Fluticasone/Vilanterol 100/25mcg 14 Puffs/Inhaler) 1 puffs INH DAILY [facility] Stop: 05/12/21 08:59 Last Admin: 04/13/21 09:18 Dose: 1 puffs Documented by: Furosemide (Furosemide 40 Mg Tab) [facility] Stop: 05/13/21 08:59 Last Admin: 04/13/21 09:17 Dose: 40 mg Documented by: Furosemide (Furosemide 40 Mg/4 Ml Vial) 40 mg IV ONE ONE Stop: 04/13/21 15:26 Guaifenesin (Guaifenesin 600 Mg Tabcr) 600 mg PO BID [facility] Stop: 05/12/21 08:59 Last Admin: 04/13/21 09:17 Dose: 600 mg Documented by: Piperacillin Sod/Tazobactam (Sod 3.375 gm/ Dextrose) 115 mls @ 28.75 mls/hr IV Q8H [facility]; Protocol Stop: 04/19/21 05:59 Last Admin: 04/13/21 13:36 Dose: 28.8 mls/hr Documented by: Vancomycin HCl 1,500 mg/ (Sodium Chloride) 530 mls @ 200 mls/hr IV Q24H [facility]; Protocol Stop: 04/19/21 13:59 Last Admin: 04/13/21 13:36 Dose: 200 mls/hr Documented by: Ipratropium [place] (Ipratropium [place] Neb Soln 0.02% 2.5 Ml Vial) 0.5 mg INH TIDR [facility] Stop: 05/12/21 06:59 Last Admin: 04/13/21 13:21 Dose: 0.5 mg Documented by: Levalbuterol HCl (Levalbuterol 1.25mg/0.5ml Neb) 1.25 mg INH TIDR [facility]EUL[facility] Stop: 05/12/21 06:59 Last Admin: 04/13/21 13:19 Dose: 1.25 mg Documented by: Levalbuterol HCl (Levalbuterol Hcl 1.25 Mg/3 Ml Neb) 1.25 mg NEB Q4H PRN; Protocol PRN Reason: Shortness Of Breath Or Wheezing Stop: 05/12/21 05:11 Metoprolol Tartrate (Metoprolol Tartrate 25 Mg Tab) 25 mg PO QAM [facility] Stop: 05/12/21 08:59 Last Admin: 04/13/21 09:15 Dose: 25 mg Documented by: Metoprolol Tartrate (Metoprolol Tartrate 25 Mg Tab) 12.5 mg PO PM [facility] Stop: 05/12/21 20:59 Last Admin: 04/12/21 21:26 Dose: 12.5 mg Documented by: Miscellaneous Information (Piperacill/Tazobac Consult Active) 1 ea N/A UD PRN PRN Reason: Consult Stop: 05/11/21 22:51 Miscellaneous Information (Vancomycin Consult Active) 1 ea N/A UD PRN PRN Reason: Consult Stop: 05/12/21 09:29 Mupirocin (Mupirocin 2% Oint 22 Gm Tube) 1 appln TOP BID [facility] Stop: 05/12/21 08:59 Last Admin: 04/13/21 09:17 Dose: 1 appln Documented by: Nitroglycerin (Nitroglycerin Sl 0.4 Mg/Tab Tab) 0.4 mg SL UD PRN PRN Reason: Chest Pain Stop: 05/12/21 05:11 Ondansetron HCl (Ondansetron Inj 2 Mg/Ml 2 Ml Vial) 4 mg IV Q6H PRN PRN Reason: Nausea Stop: 05/12/21 05:11 Pantoprazole Sodium (Pantoprazole 40 Mg Tab) 40 mg PO DAILYBB [facility] Stop: 05/12/21 06:29 Last Admin: 04/13/21 05:50 Dose: 40 mg Documented by: Potassium Chloride (Potassium Chloride Crtab 20 Meq Tabcr) 20 meq PO QID [facility] Stop: 05/12/21 08:59 Last Admin: 04/13/21 13:40 Dose: 20 meq Documented by: Saccharomyces Boulardii (Saccharomyces Boulardii 250 Mg Cap) 250 mg PO BID [facility] Stop: 05/12/21 20:59 Last Admin: 04/13/21 09:16 Dose: 250 mg Documented by: Simvastatin (Simvastatin 10 Mg Tab) 10 mg PO HS [facility] Stop: 05/12/21 20:59 Last Admin: 04/12/21 21:26 Dose: 10 mg Documented by: Spironolactone (Spironolactone 25 Mg Tab) 25 mg PO DAILY [facility] Stop: 05/12/21 08:59 Last Admin: 04/13/21 09:16 Dose: 25 mg Documented by: Tramadol HCl (Tramadol Hcl 50 Mg Tablet) 50 mg PO Q6H PRN PRN Reason: Pain Stop: 05/12/21 05:11 Travoprost (Travoprost Z 0.004% Oph Soln 2.5 Ml Btl) 1 drops OP HS [facility] Stop: 05/12/21 20:59 Last Admin: 04/12/21 21:28 Dose: 1 drops Documented by: Vitamin B Complex (Vitamin B Complex Tab) 1 tab PO QAM [facility] Stop: 05/12/21 08:59 Last Admin: 04/13/21 09:15 Dose: 1 tab Documented by: Vitamin D (Cholecalciferol 1,000 Units 25 Mcg Tab) 1,000 units PO DAILY [facility] Stop: 05/12/21 08:59 Last Admin: 04/13/21 09:16 Dose: 1,000 units Documented by: Vitamin E (Tocopheryl, Dl-Alpha 100 Units Cap) 100 units PO DAILY [facility] Stop: 05/12/21 08:59 Last Admin: 04/13/21 09:15 Dose: 100 units Documented by: Zinc Sulfate (Zinc Sulfate 220 Mg Capsule) 220 mg PO QAM [facility] Stop: 05/12/21 08:59 Last Admin: 04/13/21 09:15 Dose: 220 mg Documented by: (1) COPD (chronic obstructive pulmonary disease) COPD type: unspecified COPD Qualified Code(s): J44.9 - Chronic obstructive pulmonary disease, unspecified
[2021-04-13] MEDS: ESCITALOPRAM OXALATE 10 MG TAB PO SCH (16:39)
[2021-04-13] MEDS: SIMVASTATIN 10 MG TAB PO SCH (21:19)
[2021-04-13] MEDS: TRAVOPROST Z 0.004% OPH SOLN 2.5 ML BTL OP SCH (21:22)
[2021-04-14] MEDS: PIPERACILLIN/TAZOBACTAM 3.375 GM in DEXTROSE 5% 100 ML IV SCH ×3 (06:24→23:08)
[2021-04-14] MEDS: PANTOprazole 40 MG TAB PO SCH (06:29)
[2021-04-14] MEDS: IPRATROPIUM BROMIDE NEB SOLN 0.02% 2.5 ML VIAL INH SCH ×3 (07:00→19:48)
[2021-04-14] MEDS: LEVALBUTEROL 1.25MG/0.5ML NEB INH SCH ×3 (07:00→19:48)
[2021-04-14] MEDS: FLUTICASONE PROPIONATE NA SPR 16 GM BTL SCH (08:33)
[2021-04-14] MEDS: ACYCLOVIR 400 MG TAB PO SCH ×2 (08:34→21:57)
[2021-04-14] MEDS: MUPIROCIN 2% OINT 22 GM TUBE TOP SCH ×2 (08:34→21:57)
[2021-04-14] MEDS: FLUTICASONE/VILANTEROL 100/25MCG 14 PUFFS/INHALER INH SCH (08:34)
[2021-04-14] MEDS: SACCHAROMYCES BOULARDII 250 MG CAP PO SCH ×2 (08:34→21:55)
[2021-04-14] MEDS: VITAMIN B COMPLEX TAB PO SCH (08:35)
[2021-04-14] MEDS: METOPROLOL TARTRATE 25 MG TAB PO SCH ×2 (08:35→21:56)
[2021-04-14] MEDS: allopurinoL 300 MG TAB PO SCH (08:35)
[2021-04-14] MEDS: FERROUS SULFATE 325 MG TAB PO SCH (08:35)
[2021-04-14] MEDS: TOCOPHERYL, DL-ALPHA 100 UNITS CAP PO SCH (08:35)
[2021-04-14] MEDS: CHOLECALCIFEROL 1,000 UNITS 25 MCG TAB PO SCH (08:35)
[2021-04-14] MEDS: SPIRONOLACTONE 25 MG TAB PO SCH (08:35)
[2021-04-14] MEDS: APIXABAN 2.5 MG TAB PO SCH ×2 (08:36→21:57)
[2021-04-14] MEDS: ZINC SULFATE 220 MG CAPSULE PO SCH (08:36)
[2021-04-14] MEDS: ASPIRIN 81 MG ECTAB PO SCH (08:36)
[2021-04-14] MEDS: ASCORBIC ACID 500 MG TAB PO SCH (08:36)
[2021-04-14] MEDS: FUROSEMIDE 40 MG TAB PO SCH (08:36)
[2021-04-14] MEDS: guaiFENesin 600 MG TABCR PO SCH ×2 (08:36→21:56)
[2021-04-14] MEDS: POTASSIUM CHLORIDE CRTAB 20 MEQ TABCR PO SCH ×4 (08:37→21:55)
[2021-04-14 08:40] LABS: Basophils # (auto) 0.01 K/uL (0-0.2); Basophils % (auto) 0.1 %; Eosinophils # (auto) 0.06 K/uL (0-0.5); Eosinophils % (auto) 0.8 %; Hematocrit (blood only) 26.7 % (42-52); Hemoglobin 8.6 g/dL (14.0-18.0); Immature Granulocytes # (auto) 0.02 K/uL (0.00-0.02); Immature Granulocytes % (auto) 0.3 %; Lymphocytes # (auto) 0.58 K/uL (1.2-3.4); Lymphocytes % (auto) 7.5 %; Mean Corpuscular Hemoglobin 30.4 pg (25-34); Mean Corpuscular Hgb Conc 32.2 g/dL (32-36); Mean Corpuscular Volume 94.3 fL (80-100); Mean Platelet Volume 10.5 fL (7.4-10.4); Monocytes # (auto) 0.41 K/uL (0.11-0.59); Monocytes % (auto) 5.3 %; Neutrophils # (auto) 6.63 K/uL (1.4-6.5); Platelet Count 264 K/uL (130-400); RDW Coefficient of Variation 17.6 % (11.5-14.5); RDW Standard Deviation 60.2 fL (36.4-46.3); Red Blood Count 2.83 M/uL (4.7-6.1); White Blood Count 7.71 K/uL (4.8-10.8)
[2021-04-14 08:58] LABS: BUN Creatinine Ratio 18.6 (10-20); Calcium 8.7 mg/dl (8.5-10.1); Creatinine Clr Calc Pharmacy 67.7 ml/min; Est GFR (African American) 92.9 ml/min; Est GFR (Non-African American) 80.2 ml/min; Magnesium 1.4 mg/dl (1.7-2.4)
[2021-04-14] MEDS: MAGNESIUM SULFATE / D5W 1 GM/100 ML BAG IV SCH ×2 (09:39→11:36)
[2021-04-14] MEDS ORDERED: FUROSEMIDE 40 MG/4 ML VIAL IV SCH (13:15)
--- NOTE | 2021-04-14 13:16 | Hospitalist Progress Note ---
Date of Service April 14, 2021 Assessment & Plan (1) Acute diverticulitis: Plan: (2) Multifocal pneumonia: Plan: (3) Gram-positive cocci bacteremia: Plan: (4) Multiple myeloma: Plan: (5) Chronic diastolic (congestive) heart failure: Plan: (6) CKD (chronic kidney disease), stage III: (7) COPD (chronic obstructive pulmonary disease): Plan: (8) Chronic atrial fibrillation: Plan: 81-year-old male with multiple comorbidities including diastolic CHF, CAD, COPD, SANDOR on CPAP, compatible status post pacer, CAD status post CABG, diabetes who was recently discharged from [facility] last Monday a week ago presented to ED yesterday feeling weak, fatigue, abdominal pain, diarrhea and some shortness of breath and cough for 2 days. He was in doing fine for a week since discharge until 2 days ago. 1. Gram-positive cocci bacteremia - blood culture on admission CONS 2/, probably contamination. Repeat blood culture pending. On vanc pending final results. 2. Acute mild diverticulitis -seen on CT. On Zosyn. Send stool for C. difficile if patient has more diarrhea. No BM since admission. Tolerating diet well. Pain controlled. 3. Multifocal pneumonia - Increased cough for past 2 days along with some shortness of breath. stat es he is prone to pneumonia and had multiple episodes. chest x-ray and CT reviewed, ?residual from recent pneumonia vs new one. MRSA nare positive. Patient was recently treated with doxycycline for pneumonia at SNF. -Continue Vanco Zosyn for now. -Check procalcitonin. -[employer]EL[employer] evaluation ordered 4. Acute on chronic diastolic CHF -Still appears hypervolemic. Discontinue PO lasix. Start lasix 40mg IV BID. continue spironolactone 5. CAD status post CABG and stenting -stable, no chest pain, on aspirin, beta-gonsalo, statin 6. Chronic atrial fibrillation status post AV gerald ablation and biventricular pacemaker april 2017 - rate controlled on metoprolol, on Eliquis 7. Hypomagnesemia -replete PRN 8. Multiple myeloma -OP follow up 9. SANDOR on BiPAP DVT ppx- eliquis Dispo- will ask for PT/OT evaluation Admission and Anticipated Discharge Date Admission Date: April 12, 2021 Subjective "When I cough, I have pain across my belly. Other than that, I am fine" Tolerating diet. Denies abdominal pain. shortness of breath. Reports cough has been persistent for 2 weeks now Physical Exam Physical Exam: sitting in bed, no acute distress, pleasant and comfortable ENMT: normocephalic, atraumatic Neck: thick, supple Respiratory: Diminished at bases, no wheezing/rhonchi/rales Cardiovascular: regular rate and rhythm, no murmurs/rubs/gallops Gastrointestinal (Abdomen): soft, non tender, non distended Musculoskeletal: 1+ edema bilateral ankles/feet Neurologic: awake, alert, spontaneously moving extremities, hard of hearing Results & Data Results & Data ([facility]) Vital Signs (Past 12 Hours) Vital Signs Temp Pulse Resp BP Pulse Ox 04/14/21 13:09 70 20 98 04/14/21 11:44 36.5 C 68 20 147/75 H 93 04/14/21 08:05 36.5 C 69 20 160/73 H 96 04/14/21 07:00 70 24 100 04/14/21 03:00 36.4 C L 70 20 161/96 H 96 04/14/21 02:05 25 H Laboratory Results Short CBC 04/14/21 Range/Units 08:04 WBC 7.71 (4.8-10.8) K/uL Hgb 8.6 L (14.0-18.0) g/dL Hct 26.7 L (42-52) % Plt Count 264 (130-400) K/uL BMP 04/14/21 08:04 Sodium 132 L Potassium 4.0 Chloride 95 L Carbon Dioxide 28 BUN 16 Creatinine 0.86 Glucose 90 Calcium 8.7 Medications Administered Current Inpatient Medications Acetaminophen (Acetaminophen 325 Mg Tab) 650 mg PO Q4H PRN PRN Reason: Pain or Fever Stop: 05/12/21 05:11 Acyclovir (Acyclovir 400 Mg Tab) 400 mg PO BID [facility] Stop: 05/12/21 08:59 Last Admin: 04/14/21 08:34 Dose: 400 mg Documented by: Allopurinol (Allopurinol 300 Mg Tab) 300 mg PO QAM [facility] Stop: 05/12/21 08:59 Last Admin: 04/14/21 08:35 Dose: 300 mg Documented by: Apixaban (Apixaban 2.5 Mg Tab) 2.5 mg PO BID [facility] Stop: 05/12/21 08:59 Last Admin: 04/14/21 08:36 Dose: 2.5 mg Documented by: Artificial Tears (Artificial Tears) 1 drops OP TID PRN PRN Reason: Dry Eye(S) Stop: 05/12/21 05:28 Ascorbic Acid (Ascorbic Acid 500 Mg Tab) 1,000 mg PO QAM [facility] Stop: 05/12/21 08:59 Last Admin: 04/14/21 08:36 Dose: 1,000 mg Documented by: Aspirin (Aspirin 81 Mg Ectab) 81 mg PO QAM [facility] Stop: 05/12/21 08:59 Last Admin: 04/14/21 08:36 Dose: 81 mg Documented by: Escitalopram Oxalate (Escitalopram Oxalate 10 Mg Tab) 10 mg PO QDD [facility] Stop: 05/12/21 16:29 Last Admin: 04/13/21 16:39 Dose: 10 mg Documented by: Ferrous Sulfate (Ferrous Sulfate 325 Mg Tab) 325 mg PO QAM [facility] Stop: 05/12/21 08:59 Last Admin: 04/14/21 08:35 Dose: 325 mg Documented by: Fluticasone Propionate (Fluticasone Propionate Na Spr 16 Gm Btl) 2 sprays NA QAM [facility] Stop: 05/12/21 08:59 Last Admin: 04/14/21 08:33 Dose: 2 sprays Documented by: Fluticasone/Vilanterol (Fluticasone/Vilanterol 100/25mcg 14 Puffs/Inhaler) 1 puffs INH DAILY [facility] Stop: 05/12/21 08:59 Last Admin: 04/14/21 08:34 Dose: 1 puffs Documented by: Furosemide (Furosemide 40 Mg/4 Ml Vial) 40 mg IV DAILY [facility] Stop: 05/14/21 13:14 Guaifenesin (Guaifenesin 600 Mg Tabcr) 600 mg PO BID [facility] Stop: 05/12/21 08:59 Last Admin: 04/14/21 08:36 Dose: 600 mg Documented by: Piperacillin Sod/Tazobactam (Sod 3.375 gm/ Dextrose) 115 mls @ 28.75 mls/hr IV Q8H [facility]; Protocol Stop: 04/19/21 05:59 Last Infusion: 04/14/21 10:24 Dose: Infused Documented by: Vancomycin HCl 1,500 mg/ (Sodium Chloride) 530 mls @ 200 mls/hr IV Q24H [facility]; Protocol Stop: 04/19/21 13:59 Last Infusion: 04/13/21 16:23 Dose: Infused Documented by: Ipratropium [place] (Ipratropium [place] Neb Soln 0.02% 2.5 Ml Vial) 0.5 mg INH TIDR [facility] Stop: 05/12/21 06:59 Last Admin: 04/14/21 13:08 Dose: 0.5 mg Documented by: Levalbuterol HCl (Levalbuterol 1.25mg/0.5ml Neb) 1.25 mg INH TIDR [facility] Stop: 05/12/21 06:59 Last Admin: 04/14/21 13:08 Dose: 1.25 mg Documented by: Levalbuterol HCl (Levalbuterol Hcl 1.25 Mg/3 Ml Neb) 1.25 mg NEB Q4H PRN; Protocol PRN Reason: Shortness Of Breath Or Wheezing Stop: 05/12/21 05:11 Metoprolol Tartrate (Metoprolol Tartrate 25 Mg Tab) 25 mg PO QAM [facility] Stop: 05/12/21 08:59 Last Admin: 04/14/21 08:35 Dose: 25 mg Documented by: Metoprolol Tartrate (Metoprolol Tartrate 25 Mg Tab) 12.5 mg PO PM [facility] Stop: 05/12/21 20:59 Last Admin: 04/13/21 21:20 Dose: 12.5 mg Documented by: Miscellaneous Information (Piperacill/Tazobac Consult Active) 1 ea N/A UD PRN PRN Reason: Consult Stop: 05/11/21 22:51 Miscellaneous Information (Vancomycin Consult Active) 1 ea N/A UD PRN PRN Reason: Consult Stop: 05/12/21 09:29 Mupirocin (Mupirocin 2% Oint 22 Gm Tube) 1 appln TOP BID [facility] Stop: 05/12/21 08:59 Last Admin: 04/14/21 08:34 Dose: 1 appln Documented by: Nitroglycerin (Nitroglycerin Sl 0.4 Mg/Tab Tab) 0.4 mg SL UD PRN PRN Reason: Chest Pain Stop: 05/12/21 05:11 Ondansetron HCl (Ondansetron Inj 2 Mg/Ml 2 Ml Vial) 4 mg IV Q6H PRN PRN Reason: Nausea Stop: 05/12/21 05:11 Pantoprazole Sodium (Pantoprazole 40 Mg Tab) 40 mg PO DAILYBB [facility] Stop: 05/12/21 06:29 Last Admin: 04/14/21 06:29 Dose: 40 mg Documented by: Potassium Chloride (Potassium Chloride Crtab 20 Meq Tabcr) 20 meq PO QID [facility] Stop: 05/12/21 08:59 Last Admin: 04/14/21 08:37 Dose: 20 meq Documented by: Saccharomyces Boulardii (Saccharomyces Boulardii 250 Mg Cap) 250 mg PO BID [facility] Stop: 05/12/21 20:59 Last Admin: 04/14/21 08:34 Dose: 250 mg Documented by: Saccharomyces Boulardii (Saccharomyces Boulardii 250 Mg Cap) 250 mg PO DAILY [facility] Stop: 05/15/21 08:59 Simvastatin (Simvastatin 10 Mg Tab) 10 mg PO HS [facility] Stop: 05/12/21 20:59 Last Admin: 04/13/21 21:19 Dose: 10 mg Documented by: Spironolactone (Spironolactone 25 Mg Tab) 25 mg PO DAILY [facility] Stop: 05/12/21 08:59 Last Admin: 04/14/21 08:35 Dose: 25 mg Documented by: Tramadol HCl (Tramadol Hcl 50 Mg Tablet) 50 mg PO Q6H PRN PRN Reason: Pain Stop: 05/12/21 05:11 Travoprost (Travoprost Z 0.004% Oph Soln 2.5 Ml Btl) 1 drops OP HS [facility] Stop: 05/12/21 20:59 Last Admin: 04/13/21 21:22 Dose: 1 drops Documented by: Vitamin B Complex (Vitamin B Complex Tab) 1 tab PO QAM [facility] Stop: 05/12/21 08:59 Last Admin: 04/14/21 08:35 Dose: 1 tab Documented by: Vitamin D (Cholecalciferol 1,000 Units 25 Mcg Tab) 1,000 units PO DAILY [facility] Stop: 05/12/21 08:59 Last Admin: 04/14/21 08:35 Dose: 1,000 units Documented by: Vitamin E (Tocopheryl, Dl-Alpha 100 Units Cap) 100 units PO DAILY [facility] Stop: 05/12/21 08:59 Last Admin: 04/14/21 08:35 Dose: 100 units Documented by: Zinc Sulfate (Zinc Sulfate 220 Mg Capsule) [facility] Stop: 05/12/21 08:59 Last Admin: 04/14/21 08:36 Dose: 220 mg Documented by: (1) COPD (chronic obstructive pulmonary disease) COPD type: unspecified COPD Qualified Code(s): J44.9 - Chronic obstructive pulmonary disease, unspecified
[2021-04-14] MEDS ORDERED: VANCOMYCIN TROUGH ONE (13:30)
[2021-04-14] MEDS: VANCOMYCIN HCL 1,500 MG in SODIUM CHLORIDE 0.9% 500 ML IV SCH (14:45)
--- NOTE | 2021-04-14 15:41 | Pharmacy Report ---
Pharmacy Abx Dose Short Note - Date of Service April 14, 2021 - Assessment & Plan Assessment 81 year old M receiving vancomycin for treatment of pneumonia/bacteremia Day # 4 of antimicrobial therapy. Plan Vancomycin * Trough level of 23.2 mcg/mL is supratherapeutic * Patient received roughly 45 mins of infusion prior to trough resulting. Estimating received around 500 mg so peak is currently ~32 mcg/mL. * Goal trough level for bacteremia : 15 to 20 mcg/mL * Random level ordered for: 04/14/21 Pharmacy will continue to follow and will adjust dose/frequency as necessary. Thank you.
[2021-04-14] MEDS: ESCITALOPRAM OXALATE 10 MG TAB PO SCH (17:19)
[2021-04-14] MEDS: SIMVASTATIN 10 MG TAB PO SCH (21:55)
[2021-04-14] MEDS: TRAVOPROST Z 0.004% OPH SOLN 2.5 ML BTL OP SCH (21:57)
[2021-04-14] MEDS: FUROSEMIDE 40 MG/4 ML VIAL IV SCH (21:58)
[2021-04-15] MEDS: PANTOprazole 40 MG TAB PO SCH (05:32)
[2021-04-15] MEDS: PIPERACILLIN/TAZOBACTAM 3.375 GM in DEXTROSE 5% 100 ML IV SCH ×3 (05:34→21:39)
[2021-04-15 07:09] LABS: Basophils # (auto) 0.02 K/uL (0-0.2); Basophils % (auto) 0.3 %; Eosinophils # (auto) 0.14 K/uL (0-0.5); Hematocrit (blood only) 27.4 % (42-52); Hemoglobin 8.8 g/dL (14.0-18.0); Immature Granulocytes # (auto) 0.02 K/uL (0.00-0.02); Immature Granulocytes % (auto) 0.3 %; Lymphocytes # (auto) 0.55 K/uL (1.2-3.4); Lymphocytes % (auto) 7.7 %; Mean Corpuscular Hemoglobin 30.6 pg (25-34); Mean Corpuscular Hgb Conc 32.1 g/dL (32-36); Mean Corpuscular Volume 95.1 fL (80-100); Mean Platelet Volume 10.9 fL (7.4-10.4); Monocytes # (auto) 0.53 K/uL (0.11-0.59); Monocytes % (auto) 7.5 %; Neutrophils # (auto) 5.84 K/uL (1.4-6.5); Neutrophils % (auto) 82.2 %; Nucleated RBC # (auto) 0.04 K/uL (0-0); Nucleated RBC % (auto) 0.5 %; Platelet Count 274 K/uL (130-400); RDW Coefficient of Variation 17.5 % (11.5-14.5); RDW Standard Deviation 59.8 fL (36.4-46.3); Red Blood Count 2.88 M/uL (4.7-6.1)
[2021-04-15] MEDS: LEVALBUTEROL 1.25MG/0.5ML NEB INH SCH ×3 (07:09→19:52)
[2021-04-15] MEDS: IPRATROPIUM BROMIDE NEB SOLN 0.02% 2.5 ML VIAL INH SCH ×3 (07:10→19:52)
[2021-04-15 07:37] LABS: BUN Creatinine Ratio 15.3 (10-20); Calcium 8.9 mg/dl (8.5-10.1); Creatinine Clr Calc Pharmacy 68.4 ml/min; Est GFR (African American) 93.4 ml/min; Est GFR (Non-African American) 80.6 ml/min; Potassium 3.8 mmol/L (3.5-5.1)
--- NOTE | 2021-04-15 08:13 | XRay Report ---
XR chest 1V portable CLINICAL HISTORY: Follow-up vascular congestion and bilateral alveolar opacities. COMPARISON STUDY: 03/14/2021 TECHNIQUE: 1 view of the chest FINDINGS: Single frontal view of the chest demonstrates the heart size to again be enlarged status post previou s cardiothoracic surgery. Compared to previous examination, mild central vascular congestion is again seen. No peripheral pulmonary edema is identified. Patchy alveolar opacities are again seen at both lung bases which have increased. The findings are mo re characteristic of pneumonia than atelectasis. Additionally, there is again evidence for left pleur al effusion. No definite evidence for right pleural effusion is seen on this study . There is no acut e osseous pathology. IMPRESSION: 1. Compared to the previous examination, mild central vascular congestion is again seen. 2. Increased alveolar opacities of both lung bases most characteristic of bibasilar pneumonia rather than atelectasis. 3. Small left pleural effusion is also present. ACT 112: Negative or not required by law. Electronically signed by: Kendell Orozco M.D. 04/15/2021 8:11 AM
[2021-04-15] MEDS: POTASSIUM CHLORIDE CRTAB 20 MEQ TABCR PO SCH ×4 (09:57→20:37)
[2021-04-15] MEDS: SACCHAROMYCES BOULARDII 250 MG CAP PO SCH ×3 (09:58→20:38)
[2021-04-15] MEDS: CHOLECALCIFEROL 1,000 UNITS 25 MCG TAB PO SCH (09:58)
[2021-04-15] MEDS: ZINC SULFATE 220 MG CAPSULE PO SCH (09:58)
[2021-04-15] MEDS: guaiFENesin 600 MG TABCR PO SCH ×2 (09:58→20:36)
[2021-04-15] MEDS: FERROUS SULFATE 325 MG TAB PO SCH (09:59)
[2021-04-15] MEDS: TOCOPHERYL, DL-ALPHA 100 UNITS CAP PO SCH (09:59)
[2021-04-15] MEDS: ASCORBIC ACID 500 MG TAB PO SCH (09:59)
[2021-04-15] MEDS: METOPROLOL TARTRATE 25 MG TAB PO SCH ×2 (10:00→20:36)
[2021-04-15] MEDS: ASPIRIN 81 MG ECTAB PO SCH (10:00)
[2021-04-15] MEDS: SPIRONOLACTONE 25 MG TAB PO SCH (10:00)
[2021-04-15] MEDS: VITAMIN B COMPLEX TAB PO SCH (10:01)
[2021-04-15] MEDS: FUROSEMIDE 40 MG/4 ML VIAL IV SCH ×2 (10:01→21:10)
[2021-04-15] MEDS: FLUTICASONE PROPIONATE NA SPR 16 GM BTL SCH (10:03)
[2021-04-15] MEDS: allopurinoL 300 MG TAB PO SCH (10:04)
[2021-04-15] MEDS: ACYCLOVIR 400 MG TAB PO SCH ×2 (10:08→20:40)
[2021-04-15] MEDS: APIXABAN 2.5 MG TAB PO SCH ×2 (10:08→20:37)
[2021-04-15] MEDS: FLUTICASONE/VILANTEROL 100/25MCG 14 PUFFS/INHALER INH SCH (10:09)
[2021-04-15] MEDS: MUPIROCIN 2% OINT 22 GM TUBE TOP SCH ×2 (10:11→20:36)
[2021-04-15] MEDS: VANCOMYCIN HCL 1,000 MG in SODIUM CHLORIDE 0.9% 250 ML IV SCH (11:50)
[2021-04-15] MEDS: ESCITALOPRAM OXALATE 10 MG TAB PO SCH (16:11)
--- NOTE | 2021-04-15 16:21 | Hospitalist Progress Note ---
Date of Service April 15, 2021 Assessment & Plan (1) Acute diverticulitis: Plan: (2) Multifocal pneumonia: Plan: (3) Gram-positive cocci bacteremia: Plan: (4) Multiple myeloma: Plan: (5) Chronic diastolic (congestive) heart failure: Plan: (6) CKD (chronic kidney disease), stage III: (7) COPD (chronic obstructive pulmonary disease): Plan: (8) Chronic atrial fibrillation: Plan: 81-year-old male with multiple comorbidities including diastolic CHF, CAD, COPD, SANDOR on CPAP, status post pacer, CAD status post CABG, diabetes who was recently discharged from [facility] last Monday a week ago presented to ED yesterday feeling weak, fatigue, abdominal pain, diarrhea and some shortness of breath and cough for 2 days. He was in doing fine for a week since discharge until 2 days ago. 1. Gram-positive cocci bacteremia - blood culture on admission CONS 2/2, probably contamination. Repeat blood culture pending. 2. Acute mild diverticulitis -seen on CT. On Zosyn. Send stool for C. difficile if patient has more diarrhea. No BM since admission. Tolerating diet well. Pain controlled. 3. Multifocal pneumonia - Increased cough for past 2 days along with some shortness of breath. states he is prone to pneumonia and had multiple episodes. chest x-ray and CT reviewed, ?residual from recent pneumonia vs new one. MRSA nare positive. Patient was recently treated with doxycycline for pneumonia at [facility]. -Continue Vanco Zosyn for now day # 4 currently -procalcitonin neg x 2 -CALLIOPE PLAYER evaluation ordered -repeat CXR today again shows bilateral opacities at bases 4. Acute on chronic diastolic CHF -Still appears hypervolemic. continue lasix 40mg IV BID. continue spironolactone -Repeat CXR today again shows central vascular congestion, bilateral pleural effusions. Will give dose of metolazone prior to next lasix dose 5. CAD status post CABG and stenting -stable, no chest pain, on aspirin, beta-gonsalo, statin 6. Chronic atrial fibrillation status post AV gerald ablation and biventricular pacemaker april 2017 - rate controlled on metoprolol, on Eliquis 7. Hypomagnesemia -replete PRN 8. Multiple myeloma -OP follow up 9. SANDOR on BiPAP DVT ppx- eliquis Dispo- will ask for PT/OT evaluation Admission and Anticipated Discharge Date Admission Date: April 12, 2021 Subjective Remains on IV lasix diuresing well But still with shortness of breath Poor appetite Physical Exam Physical Exam: Appears stated age, picking at his lunch tray currently Respiratory: Appears dyspneic when speaking, diminished at bases, no wheezing/rhonchi Cardiovascular: regular rate and rhythm, no murmurs/rubs/gallops Gastrointestinal (Abdomen): soft, non tender Musculoskeletal: improved lower extremity edema. still with trace edema Neurologic: awake, hard of hearing, spontaneously moving extremities Results & Data Results & Data ([facility]) Vital Signs (Past 12 Hours) Vital Signs Temp Pulse Resp BP Pulse Ox Pulse Ox 04/15/21 13:04 70 24 96 04/15/21 07:51 36.4 C L 70 18 138/61 100 04/15/21 07:10 70 22 98 04/15/21 05:00 97 Laboratory Results Short CBC 04/15/21 Range/Units 05:58 WBC 7.10 (4.8-10.8) K/uL Hgb 8.8 L (14.0-18.0) g/dL Hct 27.4 L (42-52) % Plt Count 274 (130-400) K/uL BMP 04/15/21 05:58 Sodium 131 L Potassium 3.8 Chloride 92 L Carbon Dioxide 28 BUN 13 Creatinine 0.85 Glucose 86 Calcium 8.9 Medications Administered Current Inpatient Medications Acetaminophen (Acetaminophen 325 Mg Tab) 650 mg PO Q4H PRN PRN Reason: Pain or Fever Stop: 05/12/21 05:11 Acyclovir (Acyclovir 400 Mg Tab) 400 mg PO BID [facility] Stop: 05/12/21 08:59 Last Admin: 04/15/21 10:08 Dose: 400 mg Documented by: Allopurinol (Allopurinol 300 Mg Tab) 300 mg PO QAM [facility] Stop: 05/12/21 08:59 Last Admin: 04/15/21 10:04 Dose: 300 mg Documented by: Apixaban (Apixaban 2.5 Mg Tab) 2.5 mg PO BID [facility] Stop: 05/12/21 08:59 Last Admin: 04/15/21 10:08 Dose: 2.5 mg Documented by: Artificial Tears (Artificial Tears) 1 drops OP TID PRN PRN Reason: Dry Eye(S) Stop: 05/12/21 05:28 Ascorbic Acid (Ascorbic Acid 500 Mg Tab) 1,000 mg PO QAM [facility] Stop: 05/12/21 08:59 Last Admin: 04/15/21 09:59 Dose: 1,000 mg Documented by: Aspirin (Aspirin 81 Mg Ectab) 81 mg PO QAM [facility] Stop: 05/12/21 08:59 Last Admin: 04/15/21 10:00 Dose: 81 mg Documented by: Escitalopram Oxalate (Escitalopram Oxalate 10 Mg Tab) 10 mg PO QDD [facility] Stop: 05/12/21 16:29 Last Admin: 04/14/21 17:19 Dose: 10 mg Documented by: Ferrous Sulfate (Ferrous Sulfate 325 Mg Tab) 325 mg PO QAM [facility] Stop: 05/12/21 08:59 Last Admin: 04/15/21 09:59 Dose: 325 mg Documented by: Fluticasone Propionate (Fluticasone Propionate Na Spr 16 Gm Btl) 2 [facility]ays [facility] [place] Stop: 05/12/21 08:59 Last Admin: 04/15/21 10:03 Dose: 2 sprays Documented by: Fluticasone/Vilanterol (Fluticasone/Vilanterol 100/25mcg 14 Puffs/Inhaler) 1 puffs INH DAILY [facility] Stop: 05/12/21 08:59 Last Admin: 04/15/21 10:09 Dose: 1 puffs Documented by: Furosemide (Furosemide 40 Mg/4 Ml Vial) 40 mg IV BID [facility] Stop: 05/14/21 20:59 Last Admin: 04/15/21 10:01 Dose: 40 mg Documented by: Guaifenesin (Guaifenesin 600 Mg Tabcr) 600 mg PO BID [facility] Stop: 05/12/21 08:59 Last Admin: 04/15/21 09:58 Dose: 600 mg Documented by: Piperacillin Sod/Tazobactam (Sod 3.375 gm/ Dextrose) 115 mls @ 28.75 mls/hr IV Q8H [facility]; Protocol Stop: 04/19/21 05:59 Last Admin: 04/15/21 13:27 Dose: 28.8 mls/hr Documented by: Vancomycin HCl 1,000 mg/ (Sodium Chloride) 270 mls @ 200 mls/hr IV Q24H [facility] Stop: 04/22/21 11:59 Last Infusion: 04/15/21 13:28 Dose: Infused Documented by: Ipratropium [place] (Ipratropium [place] Neb Soln 0.02% 2.5 Ml Vial) 0.5 mg INH TIDR [facility] Stop: 05/12/21 06:59 Last Admin: 04/15/21 13:03 Dose: 0.5 mg Documented by: Levalbuterol HCl (Levalbuterol 1.25mg/0.5ml Neb) 1.25 mg INH TIDR [facility] Stop: 05/12/21 06:59 Last Admin: 04/15/21 13:03 Dose: 1.25 mg Documented by: Levalbuterol HCl (Levalbuterol Hcl 1.25 Mg/3 Ml Neb) 1.25 mg NEB Q4H PRN; Protocol PRN Reason: Shortness Of Breath Or Wheezing Stop: 05/12/21 05:11 Metoprolol Tartrate (Metoprolol Tartrate 25 Mg Tab) 25 mg PO QAM [facility] Stop: 05/12/21 08:59 Last Admin: 04/15/21 10:00 Dose: 25 mg Documented by: Metoprolol Tartrate (Metoprolol Tartrate 25 Mg Tab) 12.5 mg PO PM [facility] Stop: 05/12/21 20:59 Last Admin: 04/14/21 21:56 Dose: 12.5 mg Documented by: Miscellaneous Information (Piperacill/Tazobac Consult Active) 1 ea N/A UD PRN PRN Reason: Consult Stop: 05/11/21 22:51 Miscellaneous Information (Vancomycin Consult Active) 1 ea N/A UD PRN PRN Reason: Consult Stop: 05/12/21 09:29 Mupirocin (Mupirocin 2% Oint 22 Gm Tube) 1 appln TOP BID [facility] Stop: 05/12/21 08:59 Last Admin: 04/15/21 10:11 Dose: 1 appln Documented by: Nitroglycerin (Nitroglycerin Sl 0.4 Mg/Tab Tab) 0.4 mg SL UD PRN PRN Reason: Chest Pain Stop: 05/12/21 05:11 Ondansetron HCl (Ondansetron Inj 2 Mg/Ml 2 Ml Vial) 4 mg IV Q6H PRN PRN Reason: Nausea Stop: 05/12/21 05:11 Pantoprazole Sodium (Pantoprazole 40 Mg Tab) 40 mg PO DAILYBB [facility] Stop: 05/12/21 06:29 Last Admin: 04/15/21 05:32 Dose: 40 mg Documented by: Potassium Chloride (Potassium Chloride Crtab 20 Meq Tabcr) 20 meq PO QID [facility] Stop: 05/12/21 08:59 Last Admin: 04/15/21 12:43 Dose: 20 meq Documented by: Saccharomyces Boulardii (Saccharomyces Boulardii 250 Mg Cap) 250 mg PO BID [facility] Stop: 05/12/21 20:59 Last Admin: 04/15/21 09:58 Dose: 250 mg Documented by: Saccharomyces Boulardii (Saccharomyces Boulardii 250 Mg Cap) 250 mg PO DAILY [facility] Stop: 05/15/21 08:59 Last Admin: 04/15/21 10:11 Dose: 250 mg Documented by: Simvastatin (Simvastatin 10 Mg Tab) 10 mg PO HS [facility] Stop: 05/12/21 20:59 Last Admin: 04/14/21 21:55 Dose: 10 mg Documented by: Spironolactone (Spironolactone 25 Mg Tab) 25 mg PO DAILY [facility] Stop: 05/12/21 08:59 Last Admin: 04/15/21 10:00 Dose: 25 mg Documented by: Tramadol HCl (Tramadol Hcl 50 Mg Tablet) 50 mg PO Q6H PRN PRN Reason: Pain Stop: 05/12/21 05:11 Travoprost (Travoprost Z 0.004% Oph Soln 2.5 Ml Btl) 1 drops OP HS [facility] Stop: 05/12/21 20:59 Last Admin: 04/14/21 21:57 Dose: 1 drops Documented by: Vitamin B Complex (Vitamin B Complex Tab) 1 tab PO QAM [facility] Stop: 05/12/21 08:59 Last Admin: 04/15/21 10:01 Dose: 1 tab Documented by: Vitamin D (Cholecalciferol 1,000 Units 25 Mcg Tab) 1,000 units PO DAILY [facility] Stop: 05/12/21 08:59 Last Admin: 04/15/21 09:58 Dose: 1,000 units Documented by: Vitamin E (Tocopheryl, Dl-Alpha 100 Units Cap) 100 units PO DAILY [facility] Stop: 05/12/21 08:59 Last Admin: 04/15/21 09:59 Dose: 100 units Documented by: Zinc Sulfate (Zinc Sulfate 220 Mg Capsule) 220 mg PO QAM [facility] Stop: 05/12/21 08:59 Last Admin: 04/15/21 09:58 Dose: 220 mg Documented by: (1) COPD (chronic obstructive pulmonary disease) COPD type: unspecified COPD Qualified Code(s): J44.9 - Chronic obstructive pulmonary disease, unspecified
[2021-04-15] MEDS: MAGNESIUM SULFATE / D5W 1 GM/100 ML BAG IV SCH ×2 (17:57→19:36)
[2021-04-15] MEDS ORDERED: metOLazone 5 MG TABLET PO ONE (20:30)
[2021-04-15] MEDS: TRAVOPROST Z 0.004% OPH SOLN 2.5 ML BTL OP SCH (20:36)
[2021-04-15] MEDS: SIMVASTATIN 10 MG TAB PO SCH (20:37)
[2021-04-16] MEDS: PIPERACILLIN/TAZOBACTAM 3.375 GM in DEXTROSE 5% 100 ML IV SCH ×3 (05:18→21:38)
[2021-04-16] MEDS: PANTOprazole 40 MG TAB PO SCH (05:33)
[2021-04-16] MEDS: LEVALBUTEROL 1.25MG/0.5ML NEB INH SCH ×3 (07:18→20:14)
[2021-04-16] MEDS: IPRATROPIUM BROMIDE NEB SOLN 0.02% 2.5 ML VIAL INH SCH ×3 (07:18→20:14)
[2021-04-16] MEDS: FLUTICASONE PROPIONATE NA SPR 16 GM BTL SCH (08:39)
[2021-04-16] MEDS: FUROSEMIDE 40 MG/4 ML VIAL IV SCH (08:40)
[2021-04-16] MEDS: FLUTICASONE/VILANTEROL 100/25MCG 14 PUFFS/INHALER INH SCH (08:40)
[2021-04-16] MEDS: ASCORBIC ACID 500 MG TAB PO SCH (08:44)
[2021-04-16] MEDS: FERROUS SULFATE 325 MG TAB PO SCH (08:44)
[2021-04-16 08:45] LABS: Hematocrit (blood only) 25.5 % (42-52); Hemoglobin 8.6 g/dL (14.0-18.0); Mean Corpuscular Hemoglobin 31.7 pg (25-34); Mean Corpuscular Hgb Conc 33.7 g/dL (32-36); Mean Corpuscular Volume 94.1 fL (80-100); Platelet Count 308 K/uL (130-400); RDW Standard Deviation 59.9 fL (36.4-46.3); Red Blood Count 2.71 M/uL (4.7-6.1); White Blood Count 8.13 K/uL (4.8-10.8)
[2021-04-16] MEDS: VITAMIN B COMPLEX TAB PO SCH (08:45)
[2021-04-16] MEDS: SACCHAROMYCES BOULARDII 250 MG CAP PO SCH ×3 (08:45→20:21)
[2021-04-16] MEDS: ASPIRIN 81 MG ECTAB PO SCH (08:45)
[2021-04-16] MEDS: ZINC SULFATE 220 MG CAPSULE PO SCH (08:46)
[2021-04-16] MEDS: TOCOPHERYL, DL-ALPHA 100 UNITS CAP PO SCH (08:46)
[2021-04-16] MEDS: CHOLECALCIFEROL 1,000 UNITS 25 MCG TAB PO SCH (08:47)
[2021-04-16] MEDS: METOPROLOL TARTRATE 25 MG TAB PO SCH ×2 (08:47→20:20)
[2021-04-16] MEDS: allopurinoL 300 MG TAB PO SCH (08:48)
[2021-04-16] MEDS: guaiFENesin 600 MG TABCR PO SCH ×2 (08:48→20:20)
[2021-04-16] MEDS: SPIRONOLACTONE 25 MG TAB PO SCH (08:48)
[2021-04-16] MEDS: POTASSIUM CHLORIDE CRTAB 20 MEQ TABCR PO SCH ×4 (08:49→20:20)
[2021-04-16] MEDS: ACYCLOVIR 400 MG TAB PO SCH ×2 (08:49→20:20)
[2021-04-16] MEDS: APIXABAN 2.5 MG TAB PO SCH ×2 (08:50→20:20)
[2021-04-16 09:04] LABS: BUN Creatinine Ratio 15.3 (10-20); Creatinine Clr Calc Pharmacy 58.5 ml/min; Est GFR (African American) 82.3 ml/min; Potassium 4.7 mmol/L (3.5-5.1)
[2021-04-16] MEDS: MUPIROCIN 2% OINT 22 GM TUBE TOP SCH ×2 (09:07→20:21)
[2021-04-16] MEDS: VANCOMYCIN HCL 1,000 MG in SODIUM CHLORIDE 0.9% 250 ML IV SCH (11:35)
--- NOTE | 2021-04-16 16:57 | Hospitalist Progress Note ---
Date of Service April 16, 2021 Assessment & Plan (1) Acute diverticulitis: Plan: (2) Multifocal pneumonia: Plan: (3) Gram-positive cocci bacteremia: Plan: (4) Multiple myeloma: Plan: (5) Chronic diastolic (congestive) heart failure: Plan: (6) CKD (chronic kidney disease), stage III: (7) COPD (chronic obstructive pulmonary disease): Plan: (8) Chronic atrial fibrillation: Plan: 81-year-old male with multiple comorbidities including diastolic CHF, CAD, COPD, SANDOR on CPAP, status post pacer, CAD status post CABG, diabetes who was recently discharged from [facility] last Monday a week ago presented to ED yesterday feeling weak, fatigue, abdominal pain, diarrhea and some shortness of breath and cough for 2 days. He was in doing fine for a week since discharge until 2 days ago. 1. Gram-positive cocci bacteremia - blood culture on admission CONS /, likely contamination. Repeat blood culture negative 2. Acute mild diverticulitis -seen on CT. On Zosyn. -was previously tolerating a diet. Today with lower abdominal discomfort. Will place on bowel rest for the day. If abdominal pain improves--can advance to clears tomorrow 3. Multifocal pneumonia - Increased cough for past 2 days along with some shortness of breath. states he is prone to pneumonia and had multiple episodes. chest x-ray and CT reviewed, ?residual from recent pneumonia vs new one. MRSA nare positive. Patient was recently treated with doxycycline for pneumonia at [facility]. -Currently Vanco and Zosyn day # 5. Will discontinue vancomycin and continue zosyn for diverticulitis above -procalcitonin neg x 2 -ASSOCIATE DESIGNER evaluation 04/14, recommendations noted 4. Acute on chronic diastolic CHF -Appears euvolemic. S/p metolazone dose yesterday before evening lasix dose. Will continue with IV lasix for today, can likely switch to PO lasix tomorrow 5. CAD status post CABG and stenting -stable, no chest pain, on aspirin, beta-gonsalo, statin 6. Chronic atrial fibrillation status post AV gerald ablation and biventricular pacemaker april 2017 - rate controlled on metoprolol, on Eliquis 7. Hypomagnesemia -replete PRN 8. Multiple myeloma -OP follow up 9. SANDOR on BiPAP DVT ppx- eliquis Dispo- will return to SNF, plan for Monday discharge Admission and Anticipated Discharge Date Admission Date: April 12, 2021 Subjective [place] well earlier in the day, later was complaining of abdominal discomfort (lower abdomen and mid abdomen) Physical Exam Physical Exam: Patient examined twice today. Once in AM then later in afternoon when he complained of abdominal pain. Exam below as in in afternoon Constitutional: appears well, no acute distress Respiratory: breathing comfortably on room air, no wheezing/rhonchi, di minished at bases Cardiovascular: regular rate and rhythm Gastrointestinal (Abdomen): +BS, soft, non distended, reports lower abdominal pain--no rebound or guarding to touch Musculoskeletal: No edema Results & Data Results & Data ([facility]) Vital Signs (Past 12 Hours) Vital Signs Temp Pulse Resp BP BP Pulse Ox 04/16/21 15:07 36.0 C L 70 18 120/66 92 04/16/21 14:03 70 18 95 04/16/21 11:36 36.4 C L 70 20 129/70 96 04/16/21 08:19 36.8 C 69 20 135/73 96 04/16/21 07:18 69 16 97 04/16/21 06:55 36.4 C L 70 18 138/76 98 Laboratory Results Short CBC 04/16/21 Range/Units 07:35 WBC 8.13 (4.8-10.8) K/uL Hgb 8.6 L (14.0-18.0) g/dL Hct 25.5 L (42-52) % Plt Count 308 (130-400) K/uL BMP 04/16/21 07:35 Sodium 126 L Potassium 4.7 D Chloride 85 L Carbon Dioxide 30 BUN 15 Creatinine 0.98 Glucose 149 H Calcium 9.0 Medications Administered Current Inpatient Medications Acetaminophen (Acetaminophen 325 Mg Tab) 650 mg PO Q4H PRN PRN Reason: Pain or Fever Stop: 05/12/21 05:11 Acyclovir (Acyclovir 400 Mg Tab) 400 mg PO BID [facility] Stop: 05/12/21 08:59 Last Admin: 04/16/21 08:49 Dose: 400 mg Documented by: Allopurinol (Allopurinol 300 Mg Tab) 300 mg PO QAM [facility] Stop: 05/12/21 08:59 Last Admin: 04/16/21 08:48 Dose: 300 mg Documented by: Apixaban (Apixaban 2.5 Mg Tab) 2.5 mg PO BID [facility] Stop: 05/12/21 08:59 Last Admin: 04/16/21 08:50 Dose: 2.5 mg Documented by: Artificial Tears (Artificial Tears) 1 drops OP TID PRN PRN Reason: Dry Eye(S) Stop: 05/12/21 05:28 Ascorbic Acid (Ascorbic Acid 500 Mg Tab) 1,[facility] [place] [facility] [place]: 05/12/21 08:59 Last Admin: 04/16/21 08:44 Dose: 1,000 mg Documented by: Aspirin (Aspirin 81 Mg Ectab) 81 mg PO QAM [facility] Stop: 05/12/21 08:59 Last Admin: 04/16/21 08:45 Dose: 81 mg Documented by: Escitalopram Oxalate (Escitalopram Oxalate 10 Mg Tab) 10 mg PO QDD [facility] Stop: 05/12/21 16:29 Last Admin: 04/15/21 16:11 Dose: 10 mg Documented by: Ferrous Sulfate (Ferrous Sulfate 325 Mg Tab) [facility] [place]: 05/12/21 08:59 Last Admin: 04/16/21 08:44 Dose: 325 mg Documented by: Fluticasone Propionate (Fluticasone Propionate Na Spr 16 Gm Btl) 2 sprays NA M [facility] Stop: 05/12/21 08:59 Last Admin: 04/16/21 08:39 Dose: 2 sprays Documented by: Fluticasone/Vilanterol (Fluticasone/Vilanterol 100/25mcg 14 Puffs/Inhaler) 1 puffs INH DAILY [facility] Stop: 05/12/21 08:59 Last Admin: 04/16/21 08:40 Dose: 1 puffs Documented by: Furosemide (Furosemide 40 Mg/4 Ml Vial) 40 mg IV BID [facility] Stop: 05/14/21 20:59 Last Admin: 04/16/21 08:40 Dose: 40 mg Documented by: Guaifenesin (Guaifenesin 600 Mg Tabcr) 600 mg PO BID [facility] Stop: 05/12/21 08:59 Last Admin: 04/16/21 08:48 Dose: 600 mg Documented by: Piperacillin Sod/Tazobactam (Sod 3.375 gm/ Dextrose) 115 mls @ 28.75 mls/hr IV Q8H [facility]; Protocol Stop: 04/19/21 05:59 Last Admin: 04/16/21 14:32 Dose: 28.8 mls/hr Documented by: Vancomycin HCl 1,000 mg/ (Sodium Chloride) 270 mls @ 200 mls/hr IV Q24H [facility] Stop: 04/22/21 11:59 Last Infusion: 04/16/21 13:27 Dose: Infused Documented by: Ipratropium [place] (Ipratropium [place] Neb Soln 0.02% 2.5 Ml Vial) 0.5 mg INH TIDR [facility] Stop: 05/12/21 06:59 Last Admin: 04/16/21 14:02 Dose: 0.5 mg Documented by: Levalbuterol HCl (Levalbuterol 1.25mg/0.5ml Neb) 1.25 mg INH TIDR [facility] Stop: 05/12/21 06:59 Last Admin: 04/16/21 14:02 Dose: 1.25 mg Documented by: Levalbuterol HCl (Levalbuterol Hcl 1.25 Mg/3 Ml Neb) 1.25 mg NEB Q4H PRN; Protocol PRN Reason: Shortness Of Breath Or Wheezing Stop: 05/12/21 05:11 Metoprolol Tartrate (Metoprolol Tartrate 25 Mg Tab) 25 mg PO QAM [facility] Stop: 05/12/21 08:59 Last Admin: 04/16/21 08:47 Dose: 25 mg Documented by: Metoprolol Tartrate (Metoprolol Tartrate 25 Mg Tab) 12.5 mg PO PM [facility] Stop: 05/12/21 20:59 Last Admin: 04/15/21 20:36 Dose: 12.5 mg Documented by: Miscellaneous Information (Piperacill/Tazobac Consult Active) 1 ea N/A UD PRN PRN Reason: Consult Stop: 05/11/21 22:51 Miscellaneous Information (Vancomycin Consult Active) 1 ea N/A UD PRN PRN Reason: Consult Stop: 05/12/21 09:29 Mupirocin (Mupirocin 2% Oint 22 Gm Tube) 1 appln TOP BID [facility] Stop: 05/12/21 08:59 Last Admin: 04/16/21 09:07 Dose: 1 appln Documented by: Nitroglycerin (Nitroglycerin Sl 0.4 Mg/Tab Tab) 0.4 mg SL UD PRN PRN Reason: Chest Pain Stop: 05/12/21 05:11 Ondansetron HCl (Ondansetron Inj 2 Mg/Ml 2 Ml Vial) 4 mg IV Q6H PRN PRN Reason: Nausea Stop: 05/12/21 05:11 Pantoprazole Sodium (Pantoprazole 40 Mg Tab) 40 mg PO DAILYBB [facility] Stop: 05/12/21 06:29 Last Admin: 04/16/21 05:33 Dose: 40 mg Documented by: Potassium Chloride (Potassium Chloride Crtab 20 Meq Tabcr) 20 meq PO QID [facility] Stop: 05/12/21 08:59 Last Admin: 04/16/21 14:29 Dose: 20 meq Documented by: Saccharomyces Boulardii (Saccharomyces Boulardii 250 Mg Cap) 250 mg PO BID [facility] Stop: 05/12/21 20:59 Last Admin: 04/16/21 08:45 Dose: 250 mg Documented by: Saccharomyces Boulardii (Saccharomyces Boulardii 250 Mg Cap) 250 mg PO DAILY [facility] Stop: 05/15/21 08:59 Last Admin: 04/16/21 08:46 Dose: Not Given Documented by: Simvastatin (Simvastatin 10 Mg Tab) 10 mg PO HS [facility] Stop: 05/12/21 20:59 Last Admin: 04/15/21 20:37 Dose: 10 mg Documented by: Spironolactone (Spironolactone 25 Mg Tab) 25 mg PO DAILY [facility] Stop: 05/12/21 08:59 Last Admin: 04/16/21 08:48 Dose: 25 mg Documented by: Tramadol HCl (Tramadol Hcl 50 Mg Tablet) 50 mg PO Q6H PRN PRN Reason: Pain Stop: 05/12/21 05:11 Travoprost (Travoprost Z 0.004% Oph Soln 2.5 Ml Btl) 1 drops OP HS [facility] Stop: 05/12/21 20:59 Last Admin: 04/15/21 20:36 Dose: 1 drops Documented by: Vitamin B Complex (Vitamin B Complex Tab) 1 tab PO QAM [facility] Stop: 05/12/21 08:59 Last Admin: 04/16/21 08:45 Dose: 1 tab Documented by: Vitamin D (Cholecalciferol 1,000 Units 25 Mcg Tab) 1,000 units PO DAILY [facility] Stop: 05/12/21 08:59 Last Admin: 04/16/21 08:47 Dose: 1,000 units Documented by: Vitamin E (Tocopheryl, Dl-Alpha 100 Units Cap) 100 units PO DAILY [facility] Stop: 05/12/21 08:59 Last Admin: 04/16/21 08:46 Dose: 100 units Documented by: Zinc Sulfate (Zinc Sulfate 220 Mg Capsule) 220 mg PO QAM [facility] Stop: 05/12/21 08:59 Last Admin: 04/16/21 08:46 Dose: 220 mg Documented by: (1) COPD (chronic obstructive pulmonary disease) COPD type: unspecified COPD Qualified Code(s): J44.9 - Chronic obstructive pulmonary disease, unspecified
[2021-04-16] MEDS: ESCITALOPRAM OXALATE 10 MG TAB PO SCH (17:08)
[2021-04-16] MEDS: SIMVASTATIN 10 MG TAB PO SCH (20:20)
[2021-04-16] MEDS: TRAVOPROST Z 0.004% OPH SOLN 2.5 ML BTL OP SCH (20:21)
[2021-04-17] MEDS: PIPERACILLIN/TAZOBACTAM 3.375 GM in DEXTROSE 5% 100 ML IV SCH ×3 (05:57→21:12)
[2021-04-17] MEDS: PANTOprazole 40 MG TAB PO SCH (05:57)
[2021-04-17 06:59] LABS: Hematocrit (blood only) 26.6 % (42-52); Hemoglobin 8.7 g/dL (14.0-18.0); Mean Corpuscular Hgb Conc 32.7 g/dL (32-36); Mean Corpuscular Volume 94.7 fL (80-100); Mean Platelet Volume 10.7 fL (7.4-10.4); Nucleated RBC # (auto) 0.05 K/uL (0-0); Nucleated RBC % (auto) 0.7 %; Platelet Count 295 K/uL (130-400); RDW Coefficient of Variation 17.4 % (11.5-14.5); RDW Standard Deviation 59.2 fL (36.4-46.3); Red Blood Count 2.81 M/uL (4.7-6.1); White Blood Count 8.08 K/uL (4.8-10.8)
[2021-04-17] MEDS: LEVALBUTEROL 1.25MG/0.5ML NEB INH SCH ×3 (07:14→19:41)
[2021-04-17] MEDS: IPRATROPIUM BROMIDE NEB SOLN 0.02% 2.5 ML VIAL INH SCH ×3 (07:15→19:41)
[2021-04-17 07:25] LABS: BUN Creatinine Ratio 15.2 (10-20); Calcium 9.7 mg/dl (8.5-10.1); Creatinine Clr Calc Pharmacy 61.2 ml/min; Est GFR (African American) 88.8 ml/min; Est GFR (Non-African American) 76.6 ml/min; Magnesium 1.7 mg/dl (1.7-2.4); Potassium 4.1 mmol/L (3.5-5.1)
[2021-04-17] MEDS: METOPROLOL TARTRATE 25 MG TAB PO SCH ×2 (07:39→20:33)
[2021-04-17] MEDS: POTASSIUM CHLORIDE CRTAB 20 MEQ TABCR PO SCH ×4 (07:40→20:33)
[2021-04-17] MEDS: FERROUS SULFATE 325 MG TAB PO SCH (07:40)
[2021-04-17] MEDS: ZINC SULFATE 220 MG CAPSULE PO SCH (07:40)
[2021-04-17] MEDS: guaiFENesin 600 MG TABCR PO SCH ×2 (07:40→20:33)
[2021-04-17] MEDS: APIXABAN 2.5 MG TAB PO SCH ×2 (07:40→20:33)
[2021-04-17] MEDS: SPIRONOLACTONE 25 MG TAB PO SCH (07:40)
[2021-04-17] MEDS: ASPIRIN 81 MG ECTAB PO SCH (07:40)
[2021-04-17] MEDS: SACCHAROMYCES BOULARDII 250 MG CAP PO SCH ×2 (07:40→20:34)
[2021-04-17] MEDS: ACYCLOVIR 400 MG TAB PO SCH ×2 (07:40→20:33)
[2021-04-17] MEDS: allopurinoL 300 MG TAB PO SCH (07:41)
[2021-04-17] MEDS: ASCORBIC ACID 500 MG TAB PO SCH (07:41)
[2021-04-17] MEDS: FLUTICASONE PROPIONATE NA SPR 16 GM BTL SCH (07:41)
[2021-04-17] MEDS: FLUTICASONE/VILANTEROL 100/25MCG 14 PUFFS/INHALER INH SCH (07:41)
[2021-04-17] MEDS: TOCOPHERYL, DL-ALPHA 100 UNITS CAP PO SCH (07:41)
[2021-04-17] MEDS: VITAMIN B COMPLEX TAB PO SCH (07:41)
[2021-04-17] MEDS: MUPIROCIN 2% OINT 22 GM TUBE TOP SCH ×2 (07:42→20:34)
[2021-04-17] MEDS: CHOLECALCIFEROL 1,000 UNITS 25 MCG TAB PO SCH (07:42)
[2021-04-17] MEDS ORDERED: SACCHAROMYCES BOULARDII 250 MG CAP PO SCH (09:00)
[2021-04-17] MEDS ORDERED: VANCOMYCIN TROUGH ONE (11:30)
[2021-04-17] MEDS: MAGNESIUM SULFATE / D5W 1 GM/100 ML BAG IV SCH ×2 (11:52→12:56)
--- NOTE | 2021-04-17 17:48 | Hospitalist Progress Note ---
Date of Service April 17, 2021 Assessment & Plan (1) Acute diverticulitis: Plan: (2) Multifocal pneumonia: Plan: (3) Gram-positive cocci bacteremia: Plan: (4) Multiple myeloma: Plan: (5) Chronic diastolic (congestive) heart failure: Plan: (6) CKD (chronic kidney disease), stage III: (7) COPD (chronic obstructive pulmonary disease): Plan: (8) Chronic atrial fibrillation: Plan: 81-year-old male with multiple comorbidities including diastolic CHF, CAD, COPD, SANDOR on CPAP, status post pacer, CAD status post CABG, diabetes who was recently discharged from [facility] last Monday a week ago presented to ED yesterday feeling weak, fatigue, abdominal pain, diarrhea and some shortness of breath and cough for 2 days. He was in doing fine for a week since discharge until 2 days ago. 1. Gram-positive cocci bacteremia - blood culture on admission CONS 2/, likely contamination. Repeat blood culture negative 2. Acute mild diverticulitis -seen on CT. On Zosyn. -was previously tolerating a diet. yesterday with lower abdominal discomfort. was placed on bowel rest for one day. Today tolerated clears, will advance to full liquid diet for dinner 3. Multifocal pneumonia - Increased cough for past 2 days along with some shortness of breath. states he is prone to pneumonia and had multiple episodes. chest x-ray and CT reviewed, ?residual from recent pneumonia vs new one. MRSA nare positive. Patient was recently treated with doxycycline for pneumonia at [facility]. -Currently Vanco and Zosyn day # 5. 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 Acute on chronic diastolic CHF -Appears euvolemic. will continue to hold IV lasix 5. Hyponatremia -due to recent diuresis, poor oral intake -holding further doses of IV lasix. diet advanced to clears and now fulls -will repeat BMP now. if continues to worsen, will place on gentle IVF hydration 6. CAD status post CABG and stenting -stable, no chest pain, on aspirin, beta-gonsalo, statin 7. Chronic atrial fibrillation status post AV gerald ablation and biventricular pacemaker april 2017 - rate controlled on metoprolol, on Eliquis 8. Hypomagnesemia -replete PRN 9. Multiple myeloma -OP follow up 10. SANDOR on BiPAP DVT ppx- eliquis Dispo- will return to SNF, plan for Monday discharge Admission and Anticipated Discharge Date Admission Date: April 12, 2021 Subjective Reports abdominal discomfort has subsided Placed on clears for breakfast and lunch which he tolerated Remains on room air Afebrile Physical Exam Physical Exam: Frail, elderly, weak Respiratory: breathing comfortably on room air, diminished at bases, no wheezing/rhonchi Cardiovascular: regular rate and rhythm, no murmurs/rubs/gallops Gastrointestinal (Abdomen): soft, non tender Musculoskeletal: no edema Neurologic: awake, alert, very hard of hearing Results & Data Results & Data ([facility]) Vital Signs (Past 12 Hours) Vital Signs Temp Pulse Pulse Resp BP Pulse Ox 04/17/21 17:46 70 04/17/21 15:17 36.8 C 67 20 136/70 92 04/17/21 12:45 70 16 92 04/17/21 12:30 70 04/17/21 12:02 36.7 C 69 17 133/81 94 04/17/21 07:15 70 16 97 04/17/21 07:04 36.5 C 69 21 136/76 97 Laboratory Results Short CBC 04/17/21 Range/Units 06:29 WBC 8.08 (4.8-10.8) K/uL Hgb 8.7 L (14.0-18.0) g/dL Hct 26.6 L (42-52) % Plt Count 295 (130-400) K/uL BMP 04/17/21 06:29 Sodium 126 L Potassium 4.1 Chloride 86 L Carbon Dioxide 30 BUN 14 Creatinine 0.92 Glucose 84 Calcium 9.7 Medications Administered Current Inpatient Medications Acetaminophen (Acetaminophen 325 Mg Tab) 650 mg PO Q4H PRN PRN Reason: Pain or Fever Stop: 05/12/21 05:11 Acyclovir (Acyclovir 400 Mg Tab) 400 mg PO BID ON [facility] OF [facility] Stop: 05/12/21 08:59 Last Admin: 04/17/21 07:40 Dose: 400 mg Documented by: Allopurinol (Allopurinol 300 Mg Tab) 300 mg PO QAM ON [facility] Stop: 05/12/21 08:59 Last Admin: 04/17/21 07:41 Dose: 300 mg Documented by: Apixaban (Apixaban 2.5 Mg Tab) 2.5 mg PO BID ON [facility] Stop: 05/12/21 08:59 Last Admin: 04/17/21 07:40 Dose: 2.5 mg Documented by: Artificial Tears (Artificial Tears) 1 drops OP TID PRN PRN Reason: Dry Eye(S) Stop: 05/12/21 05:28 Ascorbic Acid (Ascorbic Acid 500 Mg Tab) 1,000 mg PO QAM ON [facility] Stop: 05/12/21 08:59 Last Admin: 04/17/21 07:41 Dose: 1,000 mg Documented by: Aspirin (Aspirin 81 Mg Ectab) 81 mg PO QAM ON [facility] Stop: 05/12/21 08:59 Last Admin: 04/17/21 07:40 Dose: 81 mg Documented by: Escitalopram Oxalate (Escitalopram Oxalate 10 Mg Tab) 10 mg PO QDD [facility] Stop: 05/12/21 16:29 Last Admin: 04/16/21 17:08 Dose: 10 mg Documented by: Ferrous Sulfate (Ferrous Sulfate 325 Mg Tab) [facility] [place] [facility] Stop: 05/12/21 08:59 Last Admin: 04/17/21 07:40 Dose: 325 mg Documented by: Fluticasone Propionate (Fluticasone Propionate Na Spr 16 Gm Btl) 2 sprays NA QAM [facility] Stop: 05/12/21 08:59 Last Admin: 04/17/21 07:41 Dose: 2 sprays Documented by: Fluticasone/Vilanterol (Fluticasone/Vilanterol 100/25mcg 14 Puffs/Inhaler) 1 puffs INH DAILY ON [facility] Stop: 05/12/21 08:59 Last Admin: 04/17/21 07:41 Dose: 1 puffs Documented by: Furosemide (Furosemide 40 Mg/4 Ml Vial) 40 mg IV BID ON [facility] Stop: 05/14/21 20:59 Last Admin: 04/16/21 08:40 Dose: 40 mg Documented by: Guaifenesin (Guaifenesin 600 Mg Tabcr) 600 mg PO BID ON [facility] Stop: 05/12/21 08:59 Last Admin: 04/17/21 07:40 Dose: 600 mg Documented by: Piperacillin Sod/Tazobactam (Sod 3.375 gm/ Dextrose) 115 mls @ 28.75 mls/hr IV Q8H ON [facility]; Protocol Stop: 04/19/21 05:59 Last Admin: 04/17/21 15:16 Dose: 28.8 mls/hr Documented by: Ipratropium [place] (Ipratropium [place] Neb Soln 0.02% 2.5 Ml Vial) 0.5 mg INH TIDR ON [facility] Stop: 05/12/21 06:59 Last Admin: 04/17/21 12:45 Dose: 0.5 mg Documented by: Levalbuterol HCl (Levalbuterol 1.25mg/0.5ml Neb) 1.25 mg INH TIDR ON [facility] Stop: 05/12/21 06:59 Last Admin: 04/17/21 12:45 Dose: 1.25 mg Documented by: Levalbuterol HCl (Levalbuterol Hcl 1.25 Mg/3 Ml Neb) 1.25 mg NEB Q4H PRN; Protocol PRN Reason: Shortness Of Breath Or Wheezing Stop: 05/12/21 05:11 Metoprolol Tartrate (Metoprolol Tartrate 25 Mg Tab) 25 mg PO QAM ON [facility] Stop: 05/12/21 08:59 Last Admin: 04/17/21 07:39 Dose: 25 mg Documented by: Metoprolol Tartrate (Metoprolol Tartrate 25 Mg Tab) 12.5 mg PO PM ON [facility] Stop: 05/12/21 20:59 Last Admin: 04/16/21 20:20 Dose: 12.5 mg Documented by: Miscellaneous Information (Piperacill/Tazobac Consult Active) 1 ea N/A UD PRN PRN Reason: Consult Stop: 05/11/21 22:51 Mupirocin (Mupirocin 2% Oint 22 Gm Tube) 1 appln TOP BID ON [facility] Stop: 05/12/21 08:59 Last Admin: 04/17/21 07:42 Dose: 1 appln Documented by: Nitroglycerin (Nitroglycerin Sl 0.4 Mg/Tab Tab) 0.4 mg SL UD PRN PRN Reason: Chest Pain Stop: 05/12/21 05:11 Ondansetron HCl (Ondansetron Inj 2 Mg/Ml 2 Ml Vial) 4 mg IV Q6H PRN PRN Reason: Nausea Stop: 05/12/21 05:11 Pantoprazole Sodium (Pantoprazole 40 Mg Tab) 40 mg PO DAILYBB ON [facility] OF [facility] Stop: 05/12/21 06:29 Last Admin: 04/17/21 05:57 Dose: 40 mg Documented by: Potassium Chloride (Potassium Chloride Crtab 20 Meq Tabcr) 20 meq PO QID JAQUELINE Stop: 05/12/21 08:59 Last Admin: 04/17/21 15:16 Dose: 20 meq Documented by: Saccharomyces Boulardii (Saccharomyces Boulardii 250 Mg Cap) 250 mg PO BID JAQUELINE Stop: 05/12/21 20:59 Last Admin: 04/17/21 07:40 Dose: 250 mg Documented by: Simvastatin (Simvastatin 10 Mg Tab) 10 mg PO HS JAQUELINE Stop: 05/12/21 20:59 Last Admin: 04/16/21 20:20 Dose: 10 mg Documented by: Spironolactone (Spironolactone 25 Mg Tab) 25 mg PO DAILY JAQUELINE Stop: 05/12/21 08:59 Last Admin: 04/17/21 07:40 Dose: 25 mg Documented by: Tramadol HCl (Tramadol Hcl 50 Mg Tablet) 50 mg PO Q6H PRN PRN Reason: Pain Stop: 05/12/21 05:11 Travoprost (Travoprost Z 0.004% Oph Soln 2.5 Ml Btl) 1 drops OP HS JAQUELINE Stop: 05/12/21 20:59 Last Admin: 04/16/21 20:21 Dose: 1 drops Documented by: Vitamin B Complex (Vitamin B Complex Tab) 1 tab PO QAM [facility]ELINE Stop: 05/12/21 08:59 Last Admin: 04/17/21 07:41 Dose: 1 tab Documented by: Vitamin D (Cholecalciferol 1,000 Units 25 Mcg Tab) 1,000 units PO DAILY JAQUELINE Stop: 05/12/21 08:59 Last Admin: 04/17/21 07:42 Dose: 1,000 units Documented by: Vitamin E (Tocopheryl, Dl-Alpha 100 Units Cap) 100 units PO DAILY JAQUELINE Stop: 05/12/21 08:59 Last Admin: 04/17/21 07:41 Dose: 100 units Documented by: Zinc Sulfate (Zinc Sulfate 220 Mg Capsule) 220 mg PO QAM [facility]QUELINE Stop: 05/12/21 08:59 Last Admin: 04/17/21 07:40 Dose: 220 mg Documented by: (1) COPD (chronic obstructive pulmonary disease) COPD type: unspecified COPD Qualified Code(s): J44.9 - Chronic obstructive pulmonary disease, unspecified
[2021-04-17] MEDS: ESCITALOPRAM OXALATE 10 MG TAB PO SCH (18:03)
[2021-04-17 18:24] LABS: BUN Creatinine Ratio 15.2 (10-20); Calcium 10.5 mg/dl (8.5-10.1); Creatinine Clr Calc Pharmacy 61.2 ml/min; Est GFR (African American) 88.8 ml/min; Est GFR (Non-African American) 76.6 ml/min; Potassium 3.7 mmol/L (3.5-5.1)
[2021-04-17] MEDS: SIMVASTATIN 10 MG TAB PO SCH (20:33)
[2021-04-17] MEDS: TRAVOPROST Z 0.004% OPH SOLN 2.5 ML BTL OP SCH (20:34)
[2021-04-18] MEDS: PIPERACILLIN/TAZOBACTAM 3.375 GM in DEXTROSE 5% 100 ML IV SCH (05:47)
[2021-04-18] MEDS: PANTOprazole 40 MG TAB PO SCH (05:49)
[2021-04-18] MEDS: LEVALBUTEROL 1.25MG/0.5ML NEB INH SCH ×3 (07:31→19:34)
[2021-04-18] MEDS: IPRATROPIUM BROMIDE NEB SOLN 0.02% 2.5 ML VIAL INH SCH ×3 (07:31→19:34)
[2021-04-18 08:00] LABS: Hemoglobin 8.4 g/dL (14.0-18.0); Mean Corpuscular Hemoglobin 30.4 pg (25-34); Mean Corpuscular Hgb Conc 32.3 g/dL (32-36); Mean Corpuscular Volume 94.2 fL (80-100); Mean Platelet Volume 10.3 fL (7.4-10.4); Platelet Count 271 K/uL (130-400); RDW Coefficient of Variation 17.6 % (11.5-14.5); RDW Standard Deviation 59.1 fL (36.4-46.3); Red Blood Count 2.76 M/uL (4.7-6.1); White Blood Count 6.91 K/uL (4.8-10.8)
[2021-04-18] MEDS: APIXABAN 2.5 MG TAB PO SCH ×2 (08:02→20:41)
[2021-04-18] MEDS: FERROUS SULFATE 325 MG TAB PO SCH (08:02)
[2021-04-18] MEDS: ASCORBIC ACID 500 MG TAB PO SCH (08:02)
[2021-04-18] MEDS: allopurinoL 300 MG TAB PO SCH (08:02)
[2021-04-18] MEDS: ASPIRIN 81 MG ECTAB PO SCH (08:02)
[2021-04-18] MEDS: POTASSIUM CHLORIDE CRTAB 20 MEQ TABCR PO SCH (08:02)
[2021-04-18] MEDS: CHOLECALCIFEROL 1,000 UNITS 25 MCG TAB PO SCH (08:02)
[2021-04-18] MEDS: ACYCLOVIR 400 MG TAB PO SCH ×2 (08:02→20:41)
[2021-04-18] MEDS: TOCOPHERYL, DL-ALPHA 100 UNITS CAP PO SCH (08:02)
[2021-04-18] MEDS: VITAMIN B COMPLEX TAB PO SCH (08:02)
[2021-04-18] MEDS: SPIRONOLACTONE 25 MG TAB PO SCH (08:02)
[2021-04-18] MEDS: METOPROLOL TARTRATE 25 MG TAB PO SCH ×2 (08:02→20:41)
[2021-04-18] MEDS: guaiFENesin 600 MG TABCR PO SCH ×2 (08:02→20:41)
[2021-04-18] MEDS: ZINC SULFATE 220 MG CAPSULE PO SCH (08:02)
[2021-04-18] MEDS: SACCHAROMYCES BOULARDII 250 MG CAP PO SCH ×2 (08:03→20:41)
[2021-04-18] MEDS: MUPIROCIN 2% OINT 22 GM TUBE TOP SCH ×2 (08:03→20:42)
[2021-04-18] MEDS: FLUTICASONE PROPIONATE NA SPR 16 GM BTL SCH (08:04)
[2021-04-18] MEDS: FLUTICASONE/VILANTEROL 100/25MCG 14 PUFFS/INHALER INH SCH (08:04)
[2021-04-18 08:22] LABS: BUN Creatinine Ratio 14.4 (10-20); Est GFR (African American) 91.2 ml/min; Est GFR (Non-African American) 78.7 ml/min; Magnesium 1.8 mg/dl (1.7-2.4); Potassium 4.5 mmol/L (3.5-5.1)
[2021-04-18] MEDS: SODIUM CHLORIDE 0.9% 250 ML IV SCH ×4 (09:40→19:22)
--- NOTE | 2021-04-18 12:29 | Hospitalist Progress Note ---
Date of Service April 18, 2021 Assessment & Plan (1) Acute diverticulitis: Plan: (2) Multifocal pneumonia: Plan: (3) Gram-positive cocci bacteremia: Plan: (4) Multiple myeloma: Plan: (5) Chronic diastolic (congestive) heart failure: Plan: (6) CKD (chronic kidney disease), stage III: (7) COPD (chronic obstructive pulmonary disease): Plan: (8) Chronic atrial fibrillation: Plan: 81-year-old male with multiple comorbidities including diastolic CHF, CAD, COPD, SANDOR on CPAP, status post pacer, CAD status post CABG, diabetes who was recently discharged from [facility] last Monday a week ago presented to ED yesterday feeling weak, fatigue, abdominal pain, diarrhea and some shortness of breath and cough for 2 days. He was in doing fine for a week since discharge until 2 days ago. 1. Gram-positive cocci bacteremia - blood culture on admission CONS 03/10, likely contamination. Repeat blood culture negative 2. Acute mild diverticulitis -seen on CT. On Zosyn. -was previously tolerating a diet. several days ago complained of lower abdominal discomfort which has now resolved after 1 day of bowel rest. Tolerated a full liquid diet. Will advance to regular diet (will liberalize diet to encourage appetite). s/p 7 days zosyn while here. will d/c further antibiotics. 3. Multifocal pneumonia - Increased cough for past 2 days along with some shortness of breath. states he is prone to pneumonia and had multiple episodes. chest x-ray and CT reviewed, ?residual from recent pneumonia vs new one. MRSA nare positive. Patient was recently treated with doxycycline for pneumonia at [facility]. -received Vanco total 5 days. 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 Acute on chronic diastolic CHF -Appears hypovolemic due to poor appetite -will give 250 cc NSS at 80 cc/hr -continue to hold diuretics 5. Hyponatremia -due to recent diuresis, poor oral intake -continue to hold diuretics, will place on gentle hydration and liberalize diet -repeat BMP tomorrow 6. CAD status post CABG and stenting -stable, no chest pain, on aspirin, beta-gonsalo, statin 7. Chronic atrial fibrillation status post AV gerald ablation and biventricular pacemaker april 2017 - rate controlled on metoprolol, on Eliquis 8. Hypomagnesemia -replete PRN 9. Multiple myeloma -OP follow up 10. SANDOR on BiPAP DVT ppx- eliquis Dispo- will return to SNF, plan for Monday discharge if Na remains stable or improved Admission and Anticipated Discharge Date Admission Date: April 12, 2021 Subjective Very hard of hearing Per nurse, patient tolerated full liquid diet but appetite was poor BM today Physical Exam Physical Exam: Appears chronically ill, debilitated, no acute distress Respiratory: breathing comfortably on room air, diminished at bases Cardiovascular: regular rate and rhythm, no murmurs/rubs/gallops Gastrointestinal (Abdomen): Hypoactive BS, soft, non tender Musculoskeletal: No edema, no cyanosis or clubbing Neurologic: awake, alert, very hard of hearing Results & Data Results & Data ([facility]) Vital Signs (Past 12 Hours) Vital Signs Temp Pulse Pulse Resp BP Pulse Ox 04/18/21 11:36 36.5 C 70 20 135/74 94 04/18/21 07:43 36.4 C L 70 20 149/80 H 99 04/18/21 07:31 76 16 90 04/18/21 07:06 70 04/18/21 04:07 36.1 C L 70 16 142/86 H 99 Laboratory Results Short CBC 04/18/21 Range/Units 07:40 WBC 6.91 (4.8-10.8) K/uL Hgb 8.4 L (14.0-18.0) g/dL Hct 26.0 L (42-52) % Plt Count 271 (130-400) K/uL BMP 04/17/21 04/18/21 17:56 07:40 Sodium 127 L 126 L Potassium 3.7 4.5 D Chloride 87 L 87 L Carbon Dioxide 29 31 BUN 14 13 Creatinine 0.92 0.90 Glucose 129 H 81 Calcium 10.5 H 10.0 Medications Administered Current Inpatient Medications Acetaminophen (Acetaminophen 325 Mg Tab) 650 mg PO Q4H PRN PRN Reason: Pain or Fever Stop: 05/12/21 05:11 Acyclovir (Acyclovir 400 Mg Tab) 400 mg PO BID JAQUELINE Stop: 05/12/21 08:59 Last Admin: 04/18/21 08:02 Dose: 400 mg Documented by: Allopurinol (Allopurinol 300 Mg Tab) 300 mg PO QAM JAQUELINE Stop: 05/12/21 08:59 Last Admin: 04/18/21 08:02 Dose: 300 mg Documented by: Apixaban (Apixaban 2.5 Mg Tab) 2.5 mg PO BID [facility] Stop: 05/12/21 08:59 Last Admin: 04/18/21 08:02 Dose: 2.5 mg Documented by: Artificial Tears (Artificial Tears) 1 drops OP TID PRN PRN Reason: Dry Eye(S) Stop: 05/12/21 05:28 Ascorbic Acid (Ascorbic Acid 500 Mg Tab) 1,000 mg PO [facility] Stop: 05/12/21 08:59 Last Admin: 04/18/21 08:02 Dose: 1,000 mg Documented by: Aspirin (Aspirin 81 Mg Ectab) 81 mg PO [facility] Stop: 05/12/21 08:59 Last Admin: 04/18/21 08:02 Dose: 81 mg Documented by: Escitalopram Oxalate (Escitalopram Oxalate 10 Mg Tab) 10 mg PO QDD [facility] Stop: 05/12/21 16:29 Last Admin: 04/17/21 18:03 Dose: 10 mg Documented by: Ferrous Sulfate (Ferrous Sulfate 325 Mg Tab) 325 mg PO [facility] Stop: 05/12/21 08:59 Last Admin: 04/18/21 08:02 Dose: 325 mg Documented by: Fluticasone Propionate (Fluticasone Propionate Na Spr 16 Gm Btl) 2 sprays NA [facility] Stop: 05/12/21 08:59 Last Admin: 04/18/21 08:04 Dose: 2 sprays Documented by: Fluticasone/Vilanterol (Fluticasone/Vilanterol 100/25mcg 14 Puffs/Inhaler) 1 puffs INH DAILY [facility] Stop: 05/12/21 08:59 Last Admin: 04/18/21 08:04 Dose: 1 puffs Documented by: Furosemide (Furosemide 40 Mg/4 Ml Vial) 40 mg IV BID [facility] Stop: 05/14/21 20:59 Last Admin: 04/16/21 08:40 Dose: 40 mg Documented by: Guaifenesin (Guaifenesin 600 Mg Tabcr) 600 mg PO BID [facility] Stop: 05/12/21 08:59 Last Admin: 04/18/21 08:02 Dose: 600 mg Documented by: Sodium Chloride (Nss) 250 mls @ 80 mls/hr IV .Q3H8M [facility] Stop: 05/18/21 08:44 Last Admin: 04/18/21 09:40 Dose: 80 mls/hr Documented by: Ipratropium [place] (Ipratropium [place] Neb Soln 0.02% 2.5 Ml Vial) 0.5 mg INH TIDR [facility] Stop: 05/12/21 06:59 Last Admin: 04/18/21 12:32 Dose: 0.5 mg Documented by: Levalbuterol HCl (Levalbuterol 1.25mg/0.5ml Neb) 1.25 mg INH TIDR [facility] Stop: 05/12/21 06:59 Last Admin: 04/18/21 12:32 Dose: 1.25 mg Documented by: Levalbuterol HCl (Levalbuterol Hcl 1.25 Mg/3 Ml Neb) 1.25 mg NEB Q4H PRN; Protocol PRN Reason: Shortness Of Breath Or Wheezing Stop: 05/12/21 05:11 Metoprolol Tartrate (Metoprolol Tartrate 25 Mg Tab) 25 mg PO QAM [facility] Stop: 05/12/21 08:59 Last Admin: 04/18/21 08:02 Dose: 25 mg Documented by: Metoprolol Tartrate (Metoprolol Tartrate 25 Mg Tab) 12.5 mg PO PM [facility] Stop: 05/12/21 20:59 Last Admin: 04/17/21 20:33 Dose: 12.5 mg Documented by: Mupirocin (Mupirocin 2% Oint 22 Gm Tube) 1 appln TOP BID [facility] Stop: 05/12/21 08:59 Last Admin: 04/18/21 08:03 Dose: 1 appln Documented by: Nitroglycerin (Nitroglycerin Sl 0.4 Mg/Tab Tab) 0.4 mg SL UD PRN PRN Reason: Chest Pain Stop: 05/12/21 05:11 Ondansetron HCl (Ondansetron Inj 2 Mg/Ml 2 Ml Vial) 4 mg IV Q6H PRN PRN Reason: Nausea Stop: 05/12/21 05:11 Pantoprazole Sodium (Pantoprazole 40 Mg Tab) 40 mg PO DAILYBB [facility] Stop: 05/12/21 06:29 Last Admin: 04/18/21 05:49 Dose: 40 mg Documented by: Saccharomyces Boulardii (Saccharomyces Boulardii 250 Mg Cap) 250 mg PO BID [facility]EL[facility] Stop: 05/12/21 20:59 Last Admin: 04/18/21 08:03 Dose: 250 mg Documented by: Simvastatin (Simvastatin 10 Mg Tab) 10 mg PO HS JAQUELINE Stop: 05/12/21 20:59 Last Admin: 04/17/21 20:33 Dose: 10 mg Documented by: Spironolactone (Spironolactone 25 Mg Tab) 25 mg PO DAILY [facility]QUELINE Stop: 05/12/21 08:59 Last Admin: 04/18/21 08:02 Dose: 25 mg Documented by: Tramadol HCl (Tramadol Hcl 50 Mg Tablet) 50 mg PO Q6H PRN PRN Reason: Pain Stop: 05/12/21 05:11 Travoprost (Travoprost Z 0.004% Oph Soln 2.5 Ml Btl) 1 drops OP HS JAQUELINE Stop: 05/12/21 20:59 Last Admin: 04/17/21 20:34 Dose: 1 drops Documented by: Vitamin B Complex (Vitamin B Complex Tab) 1 tab PO QAM JAQUELINE Stop: 05/12/21 08:59 Last Admin: 04/18/21 08:02 Dose: 1 tab Documented by: Vitamin D (Cholecalciferol 1,000 Units 25 Mcg Tab) 1,000 units PO DAILY JAQUELINE Stop: 05/12/21 08:59 Last Admin: 04/18/21 08:02 Dose: 1,000 units Documented by: Vitamin E (Tocopheryl, Dl-Alpha 100 Units Cap) 100 units PO DAILY [facility]QUELINE Stop: 05/12/21 08:59 Last Admin: 04/18/21 08:02 Dose: 100 units Documented by: Zinc Sulfate (Zinc Sulfate 220 Mg Capsule) 220 mg PO QAM [facility]ELINE Stop: 05/12/21 08:59 Last Admin: 04/18/21 08:02 Dose: 220 mg Documented by: (1) COPD (chronic obstructive pulmonary disease) COPD type: unspecified COPD Qualified Code(s): J44.9 - Chronic obstructive pulmonary disease, unspecified
[2021-04-18] MEDS: ESCITALOPRAM OXALATE 10 MG TAB PO SCH (16:49)
[2021-04-18] MEDS: SIMVASTATIN 10 MG TAB PO SCH (20:41)
[2021-04-18] MEDS: TRAVOPROST Z 0.004% OPH SOLN 2.5 ML BTL OP SCH (20:42)
[2021-04-19] MEDS: PANTOprazole 40 MG TAB PO SCH (05:42)
[2021-04-19 06:36] LABS: BUN Creatinine Ratio 14.1 (10-20); Calcium 10.1 mg/dl (8.5-10.1); Creatinine Clr Calc Pharmacy 72.9 ml/min; Est GFR (African American) 96.7 ml/min; Est GFR (Non-African American) 83.5 ml/min; Magnesium 1.5 mg/dl (1.7-2.4); Phosphorus 3.1 mg/dl (2.5-4.9); Potassium 3.7 mmol/L (3.5-5.1)
[2021-04-19] MEDS: LEVALBUTEROL 1.25MG/0.5ML NEB INH SCH ×2 (07:21→13:33)
[2021-04-19] MEDS: IPRATROPIUM BROMIDE NEB SOLN 0.02% 2.5 ML VIAL INH SCH ×2 (07:21→13:33)
[2021-04-19] MEDS ORDERED: MAGNESIUM OXIDE 400 MG TAB PO ONE (07:45)
[2021-04-19] MEDS: FERROUS SULFATE 325 MG TAB PO SCH (07:59)
[2021-04-19] MEDS: TOCOPHERYL, DL-ALPHA 100 UNITS CAP PO SCH (07:59)
[2021-04-19] MEDS: CHOLECALCIFEROL 1,000 UNITS 25 MCG TAB PO SCH (07:59)
[2021-04-19] MEDS: METOPROLOL TARTRATE 25 MG TAB PO SCH (07:59)
[2021-04-19] MEDS: allopurinoL 300 MG TAB PO SCH (08:00)
[2021-04-19] MEDS: ASCORBIC ACID 500 MG TAB PO SCH (08:00)
[2021-04-19] MEDS: VITAMIN B COMPLEX TAB PO SCH (08:00)
[2021-04-19] MEDS: APIXABAN 2.5 MG TAB PO SCH (08:00)
[2021-04-19] MEDS: ACYCLOVIR 400 MG TAB PO SCH (08:00)
[2021-04-19] MEDS: ZINC SULFATE 220 MG CAPSULE PO SCH (08:00)
[2021-04-19] MEDS: ASPIRIN 81 MG ECTAB PO SCH (08:00)
[2021-04-19] MEDS: guaiFENesin 600 MG TABCR PO SCH (08:00)
[2021-04-19] MEDS: SACCHAROMYCES BOULARDII 250 MG CAP PO SCH (08:00)
[2021-04-19] MEDS: FLUTICASONE PROPIONATE NA SPR 16 GM BTL SCH (08:01)
[2021-04-19] MEDS: FLUTICASONE/VILANTEROL 100/25MCG 14 PUFFS/INHALER INH SCH (08:01)
[2021-04-19] MEDS: MUPIROCIN 2% OINT 22 GM TUBE TOP SCH (08:02)
[2021-04-19] MEDS: MAGNESIUM SULFATE / D5W 1 GM/100 ML BAG IV SCH ×2 (09:49→11:51)
[2021-04-19 11:06] LABS: Basophils # (auto) 0.02 K/uL (0-0.2); Basophils % (auto) 0.3 %; Eosinophils # (auto) 0.13 K/uL (0-0.5); Eosinophils % (auto) 2.1 %; Hematocrit (blood only) 23.7 % (42-52); Hemoglobin 7.8 g/dL (14.0-18.0); Immature Granulocytes # (auto) 0.03 K/uL (0.00-0.02); Immature Granulocytes % (auto) 0.5 %; Lymphocytes # (auto) 0.56 K/uL (1.2-3.4); Lymphocytes % (auto) 9.1 %; Mean Corpuscular Hemoglobin 30.7 pg (25-34); Mean Corpuscular Hgb Conc 32.9 g/dL (32-36); Mean Corpuscular Volume 93.3 fL (80-100); Monocytes # (auto) 0.49 K/uL (0.11-0.59); Platelet Count 302 K/uL (130-400); RDW Coefficient of Variation 17.5 % (11.5-14.5); RDW Standard Deviation 58.5 fL (36.4-46.3); Red Blood Count 2.54 M/uL (4.7-6.1); White Blood Count 6.13 K/uL (4.8-10.8)
[2021-04-19 11:25] LABS: Base Excess ABG 6.9 mEq/L (-9-1.8); HCO3 ABG 30 mmol/L (19-24); PCO2 ABG 39 mmHg (35-46); PO2 ABG 79 mmHg (80-95)
[2021-04-19 11:27] LABS: Polychromasia 1+; Rouleaux 1+
[2021-04-19 11:41] LABS: Allen Test Pos (Pos)
[2021-04-19 11:46] LABS: pH ABG 7.51 (7.35-7.45)
[2021-04-19] MEDS ORDERED: MEGESTROL ACETATE SUSP 400 MG/10 ML UDC PO SCH (12:00)
[2021-04-19] MEDS ORDERED: MEGESTROL ACETATE 800 MG/20 ML UDP PO SCH (12:00)
--- NOTE | 2021-04-19 17:14 | Discharge Summary ---
Date of Service April 19, 2021 Admission HPI Per Admitting Provider This is an 81-year-old male with past medical history significant for type 2 diabetes, chronic kidney disease stage III, hyperlipidemia, chronic gout, history of severe COPD, sleep apnea, on CPAP, atrial fibrillation, diastolic CHF, complete heart block, status post pacemaker, hypertension, CAD s/p CABG, s/p stent placement, left ventricular hypertrophy, mitral valve regurgitation., history of GERD, vitamin B12 deficiency, morbid obesity, history of calculus of gallbladder, right footdrop, bilateral sensorineural hearing loss, primary open angle glaucoma bilateral, history of multiple myeloma, anemia of chronic kidney disease, history of tobacco abuse, anxiety, history of MRSA cultures positive, status post AV gerald ablation, generalized anxiety, depression, was brought in today because of feeling weak, tired, poor appetite and abdominal pain and diarrhea. The patient was in the hospital in January with weakness, thought to be multifactorial. At the time, he was also found to have hypercalcemia, and he was hydrated for hypercalcemia and he was discharged to [facility]. As per the , he was discharged from [facility] last Monday, he has been basically bedbound, with assistance, he can sit on the wheelchair or recliner. Today was feeling extremely weak, tired, not eating much, having occasional cough, occasional shortness of breath and he has diarrhea for last 2 days. This was the reason he was brought into the hospital. CT abdomen was okay, but showing multifocal pneumonia in lower lobes. He has elevated white count of 15,000. Urinalysis okay. Rapid COVID test is negative. Last admission for hypercalcemia, got IV fluids and zoledronic acid and was seen by Dr. Resendez and seems had bone marrow biopsy and skeletal survey done showing skeletal lesions in skull consistent with multiple myeloma. Seemed to be not started treatment yet. Today, his calcium levels are okay. The patient is a poor historian. The patient denies any chest pain, currently has no belly p ain. Denies any headache Currently no nausea, micturating fine, resting comfortably, hemodynamically stable. All the history is got from the , the patient seems to be hard of hearing and seemed to be somewhat confused. Principal Diagnosis Failure to thrive Hyponatremia Hypochloremia Acute on chronic diastolic CHF Mild Acute diverticulitis Questionable Pneumonia Discharge Exam Patient appears chronically ill, debilitated, sleepy but easily arousable, no acute distress Respiratory no wheezing/rhonchi/rales Cardiovascular regular rate and rhythm, no murmurs/rubs/gallops Gastrointestinal (Abdomen) soft, non tender, non distended Musculoskeletal no edema Skin thin, multiple bruises Neurologic sleepy but arousable, very hard of hearing, spontaneously moving extemities, generalized weakness Discharge Data Allergies Allergy/AdvReac Type Severity Reaction Status Date / Time No Known Drug Allergies Allergy Unknown Unknown Verified 04/11/21 21:53 Consultations 04/12/21 00:05 ED Decision to Admit Stat Ordered Studies 04/11/21 21:00 CT abd pelvis IV con only Urgent Hospital Course (1) Acute diverticulitis: (2) Multifocal pneumonia: (3) Gram-positive cocci bacteremia: (4) Multiple myeloma: (5) Chronic diastolic (congestive) heart failure: (6) CKD (chronic kidney disease), stage III: (7) COPD (chronic obstructive pulmonary disease): (8) Chronic atrial fibrillation: 81-year-old male with multiple comorbidities including diastolic CHF, CAD, COPD, SANDOR on CPAP, status post pacer, CAD status post CABG, diabetes who was recently discharged from [facility] last Monday a week ago presented to ED yesterday feeling weak, fatigue, abdominal pain, diarrhea and some shortness of breath and cough for 2 days. He was in doing fine for a week since recent discharge from SNF. 1. Gram-positive cocci bacteremia - blood culture on admission CONS 2/, likely contamination. Repeat blood culture negative 2. Acute mild diverticulitis -seen on CT. -finished 7 day course of zosyn. Required 1 day of bowel rest. Was tolerating a regular diet at discharge although appetite was poor (see #6 below) 3. Acute on chronic diastolic CHF -CXR on 04/12 shows cardiomegaly with mild CHF, trace bilateral pleural effusions, patchy bibasilar densities which may represent atelectasis vs PNA. -received IV lasix while here -diuresed well with resolution of lower extremity edema. Remained on room air with no evidence of hypoxia -further diuresis limited due to patient's poor oral intake and hyponatremia -at discharge, diuretics held due to hyponatremia. Would recommend follow up with Preparation Department Supervisor within 1 week to determine if diuretics should be resumed 4. Questionable Multifocal pneumonia - Increased cough for past several days prior to admission but likely due to decompensated CHF -MRSA nare positive. Patient was recently treated with doxycycline for pneumonia at SNF. -received Vanco total 5 days. zosyn total 7 days --procalcitonin neg x 3 so additional antibiotics were discontinued 5. Hyponatremia -due to poor oral intake -remained stable during hospital course -diet liberalized to general diet and 1800 cc fluid restriction to encourage appetite -repeat BMP in 2-3 days at SNF. 6. Failure to thrive -patient with very poor appetite -after discussing with his , this has been an ongoing problem -trial of Megace started 04/19 7. Multiple Myeloma -patient has declined further treatment 8. Goals of Care -With patient's multiple re-admissions in past several months, steady clinical decline, failure to thrive, and multiple medical co-morbidities. I had kylie a discussion with Mrs Mane on the day of discharge, that if Rodrigo fails to improve at rehab, he would appropriate for hospice. She understands and actually was previously considering hospice. Would recommend ongoing goals of care discussion at SNF. Total Time Total Time Spent Total Time Spent (In Minutes): 60 Discharge Plan Discharge Items Patient Disposition: Transfer [facility] Reason For Visit: WEAKNESS, ABDOMINAL PAIN Discharge Diagnosis: Failure to thrive Hyponatremia Hypochloremia Acute on chronic diastolic CHF Mild Acute diverticulitis Questionable Pneumonia Condition on Discharge: Fair Health Concerns: Poor appetite, failure to thrive, repeat re-admissions Activity: Resume your previous activity Weightbearing: Full weightbearing Non-emergency contact: Primary Care Provider and Preparation Department Supervisor Call non-emergency contact if: you have any medication questions and your symptoms worsen Follow-up/Referrals: Richa Rojas MD [Primary Care Provider] - Diet: Regular Fluids: 1800ml (7 cups) Diet Texture: Easy to Chew Diet Comment: diet was liberalized to regular to improve appetite. Boost BID. Addtl Attending Provider Instructions: You were admitted for weakness and abdominal discomfort You were treated for mild acute diverticulitis and acute on chronic diastolic CHF here While here, your appetite was poor and your Na was low. Lasix, metolazone and spironolactone were held at discharge due to low sodium (Na 127) and poor appetite Would recommend a repeat BMP in 3 days Diet liberalized to regular diet with 1800 mL fluid restriction and megace started to help stimulate appetite Would recommend follow-up with his Preparation Department Supervisor in 5 days to decide if diuretics should be restarted If he continues to deteriorate, would recommend considering hospice. This was discussed with . Pending Studies at Discharge: No Stand-Alone Forms: My [facility] Skilled Items Patient informed of condition?: Yes DNR: No Discharge Level of Care: Skilled Communicable Disease: Yes (hx of MRSA) Discharge Prognosis: Deteriorating Lines: None Urinary Catheter: No Medications and DC Order Prescriptions: New megestrol 800 mg/20 mL (20 mL) suspension 800 mg PO DAILY Qty: 600 RF: 0 Continued ipratropium-albuterol 0.5 mg-3 mg(2.5 mg base)/3 mL Solution For Nebulization 3 ml INHALATION Q4H PRN (Reason: Shortness Of Breath) Qty: 0 RF: 0 aspirin 81 mg Tablet,Delayed Release (Dr/Ec) 81 mg PO QAM Qty: 0 RF: 0 ferrous sulfate 325 mg (65 mg iron) Tablet 325 mg PO QAM Qty: 0 RF: 0 fluticasone propionate [Flonase Allergy Relief] 50 mcg/actuation spray,suspension 2 spray INTRANASAL QAM Qty: 18.2 RF: 5 allopurinol 300 mg tablet 300 mg PO QAM Qty: 30 RF: 5 vitamin B complex tablet 1 tab PO QAM RF: 0 simvastatin 10 mg tablet 10 mg PO HS RF: 0 pantoprazole [Protonix] 40 mg tablet,delayed release (DR/EC) 40 mg PO DAILYBB RF: 0 nitroglycerin [Nitrostat] 0.4 mg tablet, sublingual 0.4 mg Sublingual UD PRN (Reason: chest pain) RF: 0 omega 3-[id number]-[id number]-fish oil [Fish Oil] 1,200 (144-216) mg Capsule 1,200 cap PO DAILY RF: 0 vitamin E 600 unit Capsule 600 unit PO DAILY RF: 0 cholecalciferol (vitamin D3) [Vitamin D3] 25 mcg (1,000 unit) Tablet 25 mcg PO DAILY RF: 0 sennosides-docusate sodium [Senexon-S] 8.6-50 mg Tablet 1 tab-cap PO DAILY RF: 0 travoprost 0.004 % drops 1 drp ophthalmic (eye) HS RF: 0 fluticasone propion-salmeterol [Wixela Inhub] 500-50 mcg/dose blister with device 1 inh INHALATION BID RF: 0 mupirocin 2 % ointment 1 applic TOPICAL BID RF: 0 Systane Complete 0.6 % Drops 1 drp OPHTHALMIC (EYE) TID PRN (Reason: Dry Eye(S)) RF: 0 ascorbic acid (vitamin C) [Vitamin C] 1,000 mg Tablet 1 g PO QAM RF: 0 zinc 50 mg Tablet 50 mg PO QAM RF: 0 metoprolol tartrate 25 mg tablet 12.5 - 25 mg PO DIRECTED RF: 0 escitalopram oxalate [Lexapro] 5 mg tablet 10 mg PO QDD RF: 0 acetaminophen [Tylenol] 325 mg Tablet 650 mg PO Q4 MDD 3g PRN (Reason: Fever Or Pain) RF: 0 Eliquis 2.5 mg tablet 2.5 mg PO BID Qty: 60 RF: 1 Discontinued guaifenesin [Mucus Relief ER] 600 mg tablet extended release 12hr 600 mg PO BID RF: 0 furosemide 40 mg tablet 20 - 40 mg PO DAILY RF: 0 metolazone 5 mg Tablet 5 mg PO Q OTHER DAY RF: 0 acyclovir 400 mg Tablet 400 mg PO BID RF: 0 tramadol 50 mg Tablet 50 mg PO Q6H PRN (Reason: Pain) RF: 0 spironolactone 25 mg Tablet 25 mg PO DAILY RF: 0 potassium chloride 20 mEq tablet,ER particles/crystals 20 meq PO QID RF: 0 dexamethasone 4 mg tablet 16 mg PO DAILY RF: 0 Discharge Orders: Discharge Order (Routine); Ordered 04/19/21 Ordered By: Yanique Tariq Admission Data Admit Date/Time: 04/12/21 01:08 Attending Provider: Yanique Tariq Admit Provider: Jean-Claude Zaidi Primary Care Provider: Richa Rojas Other Providers: Jean-Claude Zaidi ; [facility] ; Raoul Floyd Other Interventions: Discharge Summary Assessment (RN) Last Done: 04/19/21 13:36
== END 2021-04-19 15:16 | DRG 391 ==
LOC: ED 20:45 → 2W 04-12 01:08 → SUATTDRO 04-12 01:08 → 2W 04-12 04:58